=== PATIENT | female | born 1950 | race Caucasian/White ===

== ENCOUNTER → 2020-05-26 | Outpatient (CLI) | payer MEDICARE ==
--- NOTE | 2020-05-28 16:17 | BD ---
EXAMINATION TYPE: Axial Bone Density DATE OF EXAM: 05/26/2020 COMPARISON: NONE CLINICAL HISTORY: Height: Weight: FRAX RISK QUESTIONS: Alcohol (3 or more units per day): no Family History (Parent hip fracture): no Glucocorticoids (More than 3mos): no (Ex: prednisone, prednisolone, methylprednisolone, dexamethasone, and hydrocortisone). History of Fracture in Adulthood: yes Secondary Osteoporosis: 1. Type 1 Diabetes: no 2. Hyperthyroidism: no 3. Menopause before 45: no 4. Malnutrition: yes 5. Chronic liver disease: no Rheumatoid Arthritis: no Current Tobacco Use: yes RISK FACTORS HISTORY OF: History of Wrist Fracture: right wrist Surgery to Spine/Hip(right/left)/Wrist (right/left): no Family History of Osteoporosis: yes Active: no Diet low in dairy products/other sources of calcium: yes Postmenopausal woman: age 50 Poor Health: yes MEDICATIONS: Additional History: EXAM MEASUREMENTS: Bone mineral densitometry was performed using the [employer] System. Bone mineral density as measured about the Lumbar spine is: ----- L1-L4(G/cm2): 0.632 T Score Values are as follows: ----- L2: -5.4 ----- L3: -4.7 ----- L4: -3.4 ----- L1-L4: -4.6 Bone mineral density : baseline Bone mineral density about the R hip (g/cm2): 0.468 Bone mineral density about the L hip (g/cm2): 0.498 T Score values are as follows: -----R Neck: -4.1 -----L Neck: -3.9 -----R Total: -2.5 -----L Total: -4.4 Bone mineral density : baseline IMPRESSION:Osteoporosis (T Score less than -2.5). There is increased fracture risk and therapy is usually indicated based on age. Re-Screen 1-2 years. NOTE: T-SCORE=SD OF THE YOUNG ADULT MEAN.
--- NOTE | 2020-06-01 10:53 | MM ---
Reason for exam: screening (asymptomatic). History: Patient is postmenopausal. Physical Findings: A clinical breast exam by your physician is recommended on an annual basis and results should be correlated with mammographic findings. MG 3D Screening Mammo W/Cad Bilateral CC and MLO view(s) were taken. No prior studies available for comparison. The breast tissue is heterogeneously dense. This may lower the sensitivity of mammography. There is no discrete abnormality. Benign oil cyst calcification anteriorly on the right. ASSESSMENT: Benign, BI-RAD 2 RECOMMENDATION: Routine screening mammogram of both breasts in 1 year.
== END | disposition home or self-care (01) ==
LOC: RADMAMWWP 15:43
PROVIDERS: ATTEND Family Medicine
DX: Z12.31 Encounter for screening mammogram for malignant neoplasm of breast (principal); M81.0 Age-related osteoporosis without current pathological fracture; Z78.0 Asymptomatic menopausal state
CPT/HCPCS: 77063; 77067; 77080

== ENCOUNTER 2020-10-15 13:03 | Emergency (ER) | payer MEDICARE ==
[2020-10-15 13:15] VITALS: BP 160/72; PULSE 67; RESP 18; TEMP 97.9
--- NOTE | 2020-10-15 15:36 | ED ---
General Adult HPI - General Chief complaint: Extremity Injury, Lower Stated complaint: R Foot Swelling Time Seen by Provider: 10/15/20 15:10 Source: patient Mode of arrival: wheelchair Limitations: no limitations - History of Present Illness Initial comments: 70-year-old female with a past medical history of hypertension presents to the emergency room for a chief complaint of right foot pain. Patient patient reports that several years ago she cut her toenail to narrow and it grew back with fungus. She reports that the past 4 days she noticed the toe was hurting more in her foot and ankle started to swell. She went to urgent care and they were concerned for a blood clot. Patient denies any fevers. Denies streaking redness up the leg.Patient has no other complaints at this time including shortness of breath, chest pain, abdominal pain, nausea or vomiting, headache, or visual changes. - Related Data Home Medications Medication Instructions Recorded Confirmed ALPRAZolam [Xanax] 1 mg PO TID PRN 10/15/20 10/15/20 Citalopram Hydrobromide 20 mg PO DAILY 10/15/20 10/15/20 [Citalopram HBr] Cyanocobalamin (Vitamin B-12) 1,000 mcg PO DAILY 10/15/20 10/15/20 [Vitamin B-12] Losartan Potassium [Cozaar] 50 mg PO BID 10/15/20 10/15/20 Metoprolol Succinate (ER) [Toprol 100 mg PO BID 10/15/20 10/15/20 Xl] Vit C/E/Zn/Coppr/Lutein/Zeaxan 1 cap PO BID 10/15/20 10/15/20 [Preservision Areds 2 Softgel] amLODIPine [Norvasc] 5 mg PO DAILY 10/15/20 10/15/20 diphenhydrAMINE [Benadryl] 25 mg PO DAILY PRN 10/15/20 10/15/20 Previous Rx's Medication Instructions Recorded Cephalexin [Keflex] 500 mg PO Q6HR 10 Days #40 cap 10/15/20 Allergies Allergy/AdvReac Type Severity Reaction Status Date / Time No Known Allergies Allergy Verified 10/15/20 15:50 Review of Systems ROS Statement: Those systems with pertinent positive or pertinent negative responses have been documented in the HPI. ROS Other: All systems not noted in ROS Statement are negative. Past Medical History Past Medical History: Hypertension History of Any Multi-Drug Resistant Organisms: None Reported Additional Past Surgical History / Comment(s): vain stripping left leg, Past Psychological History: Anxiety, Depression Smoking Status: Current every day smoker Past Alcohol Use History: Heavy Past Drug Use History: None Reported General Exam Limitations: no limitations General appearance: alert Head exam: Present: atraumatic Eye exam: Present: normal appearance ENT exam: Present: normal exam, mucous membranes moist Neck exam: Present: normal inspection. Absent: tenderness, meningismus, lymphadenopathy Respiratory exam: Present: normal lung sounds bilaterally. Absent: respiratory distress, wheezes, rales, rhonchi, stridor Cardiovascular Exam: Present: regular rate, normal rhythm, normal heart sounds. Absent: systolic murmur, diastolic murmur, rubs, gallop, clicks Extremities exam: Present: full ROM (Full range motion of the right lower extremity), tenderness (No significant tenderness in the toe or right lower extremity), normal capillary refill (Capillary refill less than 2 seconds, DP pulse 2+.), other (Mild edema noted of the right foot and distal lower leg with minimal erythema. There is no paronychia noted. There is no streaking redness up the leg. No sores or wounds.). Absent: calf tenderness Course Vital Signs 10/15/20 13:07 Temperature 97.9 F Pulse Rate 67 Respiratory 18 Rate Blood Pressure 160/72 O2 Sat by Pulse 98 Oximetry Medical Decision Making - Medical Decision Making Vitals are stable. Patient well-appearing. Patient does have some edema and erythema noted to the right foot and distal lower leg. Concern for cellulitis. X-ray shows osteoarthritis. There is a mild bunion with overlying soft tissue swelling and subtle soft tissue calcification. Correlate to exclude the possibility of gout here. Clinically not consistent with gout. US neg fot DVT, We will treat patient for cellulitis. No history of diabetes, no fevers. We will try outpatient management with Keflex. Recommend she follow up with her doctor. If symptoms do not improve in the next 2 days she needs to return to the emergency room. I discussed this case with attending Dr. Yap who agrees with this assessment and treatment plan. Disposition Clinical Impression: Cellulitis Disposition: HOME SELF-CARE Condition: Good Instructions (If sedation given, give patient instructions): Cellulitis (ED) Additional Instructions: Please take antibiotic as directed. Please monitor for any worsening symptoms such as worsening swelling or redness to return if these occur. Follow-up with primary care in 1-2 days for a recheck. If symptoms are not starting to improve in 2 days return to the emergency room. Prescriptions: Cephalexin [Keflex] 500 mg PO Q6HR 10 Days #40 cap Is patient prescribed a controlled substance at d/c from ED?: No Referrals: Janel Bailey MD [Primary Care Provider] - 1-2 days Time of Disposition: 16:58
--- NOTE | 2020-10-15 15:59 | XR ---
EXAMINATION TYPE: XR foot complete RT DATE OF EXAM: 10/15/2020 COMPARISON: NONE HISTORY: 70-year-old female pain, redness, cellulitis of the great toe. TECHNIQUE: 3 views FINDINGS: There is soft tissue swelling noted at the great toe. Moderate degenerative change first and joint. M ild bunion formation. No acute fracture, subluxation, dislocation. Some soft tissue swelling overlyin g the medial aspect of the first MTP joint and some subtle soft tissue calcifications in this region. Possible type II accessory navicular. Tiny plantar heel spur. IMPRESSION: 1. Moderate first MTP joint OA. 2. Mild bunion. There is overlying soft tissue swelling and subtle soft tissue calcification. Correla te to exclude the possibility of gout here.
--- NOTE | 2020-10-15 16:25 | US ---
EXAMINATION TYPE: US venous doppler duplex LE RT DATE OF EXAM: 10/15/2020 4:18 PM COMPARISON: NONE CLINICAL HISTORY: 70 year-old female rule out blood clot, edema. SIDE PERFORMED: Right TECHNIQUE: The lower extremity deep venous system is examined utilizing real time linear array sonog simon with graded compression, doppler sonography and color-flow sonography. FINDINGS: VESSELS IMAGED: Common Femoral Vein Deep Femoral Vein Greater Saphenous Vein * Femoral Vein Popliteal Vein Small Saphenous Vein * Proximal Calf Veins (* superficial vessels) Right Leg: Negative for DVT IMPRESSION: No evidence for DVT within the right lower extremity imaged from the groin to the upper calf.
[2020-10-15] MEDS ORDERED: CEPHALEXIN 500MG STARTER PACK 4 CAP BTL PO STA (16:56)
== END 2020-10-15 17:09 | disposition home or self-care (01) ==
LOC: EC 13:03
DX: L03.115 Cellulitis of right lower limb (principal); F17.200 Nicotine dependence, unspecified, uncomplicated; F32.9 Major depressive disorder, single episode, unspecified; F41.9 Anxiety disorder, unspecified; I10 Essential (primary) hypertension; Z79.899 Other long term (current) drug therapy
CPT/HCPCS: 99284

== ENCOUNTER 2021-12-11 09:19 | Emergency (ER) | payer MEDICARE ==
[2021-12-11 09:24] VITALS: TEMP 97.9
--- NOTE | 2021-12-11 09:37 | ED ---
General Adult HPI - General Chief complaint: Extremity Problem,Nontraumatic Stated complaint: L side Pain/cant walk Time Seen by Provider: 12/11/21 09:24 Source: patient Mode of arrival: wheelchair Limitations: no limitations - History of Present Illness Initial comments: Dictation was produced using [employer] dictation software. please excuse any gra mmatical, word or spelling errors. Chief Complaint: 71-year-old female presents to the emergency department left Meri pain History of Present Illness: 31-year-old female she has past medical history of hypertension. Patient states that she has left knee pain, left calf pain and left medial thigh pain. Patient was on a recent trip to [place]. She returned few days ago. Patient states it hurts when she walks. States that most of her pain is in her left knee. She does however complain of Pain, left popliteal pain and left medial thigh pain. Patient does not have any history of PE or DVT. Patient is coming by her son who is concerned that patient might be having symptoms of deep venous thrombosis. Patient has a chest pain or shortness of breath. The ROS documented in this emergency department record has been reviewed and confirmed by me. Those systems with pertinent positive or negative responses have been documented in the HPI. All other systems are other negative and/or noncontributory. PHYSICAL EXAM: General Impression: Alert and oriented x3, not in acute distress HEENT: Normocephalic atraumatic, extra-ocular movements intact, pupils equal and reactive to light bilaterally, mucous membranes moist. Cardiovascular: Heart regular rate and rhythm Chest: Able to complete full sentences, no retractions, no tachypnea Abdomen: abdomen soft, non-tender, non-distended, no organomegaly Musculoskeletal: Pulses present and equal in all extremities, no peripheral edema Left lower extremity: Hypertrophic left knee joint, no swelling, she does have palpable calf pain and medial thigh pain Motor: no focal deficits noted Neurological: CN II-XII grossly intact, no focal motor or sensory deficits noted Skin: Intact with no visualized rashes Psych: Normal affect and mood ED course: 71-year-old female presents with left left lower extremity pain. Signs upon arrival are within acceptable limits. Patient's clinical presentation is likely secondary to musculoskeletal pain at the left knee joint however she does have some symptoms of DVT. She does not have any symptoms of PE. Knee x-ray and left lower extremity ultrasound ordered. X-ray of the knee shows no acute processes. Does appear to be degenerative changes however. Ultrasound of the left lower extremities does not show any DVT. Patient be discharged. - Related Data Home Medications Medication Instructions Recorded Confirmed ALPRAZolam [Xanax] 1 mg PO TID PRN 10/15/20 10/15/20 Citalopram Hydrobromide 20 mg PO DAILY 10/15/20 10/15/20 [Citalopram HBr] Cyanocobalamin (Vitamin B-12) 1,000 mcg PO DAILY 10/15/20 10/15/20 [Vitamin B-12] Losartan Potassium [Cozaar] 50 mg PO BID 10/15/20 10/15/20 Metoprolol Succinate (ER) [Toprol 100 mg PO BID 10/15/20 10/15/20 Xl] Vit C/E/Zn/Coppr/Lutein/Zeaxan 1 cap PO BID 10/15/20 10/15/20 [Preservision Areds 2 Softgel] amLODIPine [Norvasc] 5 mg PO DAILY 10/15/20 10/15/20 diphenhydrAMINE [Benadryl] 25 mg PO DAILY PRN 10/15/20 10/15/20 Previous Rx's Medication Instructions Recorded Cephalexin [Keflex] 500 mg PO Q6HR 10 Days #40 cap 10/15/20 Allergies Allergy/AdvReac Type Severity Reaction Status Date / Time No Known Allergies Allergy Verified 12/11/21 09:21 Review of Systems ROS Statement: Those systems with pertinent positive or pertinent negative responses have been documented in the HPI. ROS Other: All systems not noted in ROS Statement are negative. Past Medical History Past Medical History: Hypertension History of Any Multi-Drug Resistant Organisms: None Reported Additional Past Surgical History / Comment(s): vain stripping left leg, Past Psychological History: Anxiety, Depression Smoking Status: Current every day smoker Past Alcohol Use History: Heavy Past Drug Use History: None Reported General Exam Limitations: no limitations Course Vital Signs 12/11/21 09:21 Temperature 97.9 F Pulse Rate 65 Respiratory 16 Rate Blood Pressure 140/68 O2 Sat by Pulse 93 L Oximetry Disposition Clinical Impression: Knee pain Disposition: HOME SELF-CARE Condition: Good Instructions (If sedation given, give patient instructions): Knee Pain (ED) Is patient prescribed a controlled substance at d/c from ED?: No Referrals: Janel Bailey MD [Primary Care Provider] - 1-2 days Time of Disposition: 10:46
--- NOTE | 2021-12-11 10:04 | XR ---
Left knee HISTORY: Knee pain COMPARISON: None TECHNIQUE: 4 views left knee were obtained. There is no fracture or dislocation. There is a small left knee effusion. There is moderate osteoarthritic change of the patellofemoral compartment with moderate joint space n arrowing. There is chondrocalcinosis of the medial and lateral compartments of the knee with mild joint space n arrowing. There are no focal intraosseous abnormalities. IMPRESSION: 1. No fracture or dislocation. 2. Small joint effusion. 3. Moderate degenerative change of the patellofemoral compartment and chondrocalcinosis of the medial and lateral compartments.
--- NOTE | 2021-12-11 10:24 | US ---
EXAMINATION TYPE: US venous doppler duplex LE LT DATE OF EXAM: 12/11/2021 10:19 AM COMPARISON: NONE CLINICAL HISTORY: suspect DVT. Left leg pain x 4 days. SIDE PERFORMED: Left TECHNIQUE: The lower extremity deep venous system is examined utilizing real time linear array sonog simon with graded compression, doppler sonography and color-flow sonography. VESSELS IMAGED: Common Femoral Vein Deep Femoral Vein Greater Saphenous Vein * Femoral Vein Popliteal Vein Small Saphenous Vein * Proximal Calf Veins (* superficial vessels) Left Leg: Negative for DVT The deep venous system of the left lower extremity from the common femoral vein to the popliteal vein and proximal calf veins are patent and compressible with augmentable flow throughout. IMPRESSION: No evidence of left lower extremity DVT.
[2021-12-11] MEDS ORDERED: ACET/COD 300 MG/30 MG STARTER PACK 6 TAB BTL PO STA (10:47)
[2021-12-11 11:04] VITALS: BP 132/68; PULSE 87; RESP 18
== END 2021-12-11 11:03 | disposition home or self-care (01) ==
LOC: EC 09:19
DX: M25.562 Pain in left knee (principal); I10 Essential (primary) hypertension; F17.200 Nicotine dependence, unspecified, uncomplicated; Z79.899 Other long term (current) drug therapy
CPT/HCPCS: 99284

== ENCOUNTER 2022-04-05 10:36 | Inpatient (IN) | payer MEDICARE ==
[2022-04-05] MEDS ORDERED: SODIUM CHLORIDE 0.9% 1,000 ML IV STA ×2 (10:39→11:31)
[2022-04-05 10:44] LABS: Glucose,Whole Blood 223 mg/dL (70-110)
[2022-04-05 10:51] LABS: Basophils # (A) 0.1 k/uL (0-0.2); Basophils % (A) 0 %; Eosinophils % (A) 0 %; HCT 46.3 % (34.0-46.0); HGB 14.1 gm/dL (11.4-16.0); Hypochromasia Marked; Lymphocytes # (A) 1.8 k/uL (1.0-4.8); Lymphocytes % (A) 12 %; MCH 29.8 pg (25.0-35.0); MCHC 30.5 g/dL (31.0-37.0); MCV 97.5 fL (80.0-100.0); Mean Platelet Volume 7.5; Monocytes # (A) 0.4 k/uL (0-1.0); Monocytes % (A) 3 %; Neutrophils # (A) 12.7 k/uL (1.3-7.7); Neutrophils % (A) 84 %; Platelet Count 328 k/uL (150-450); RBC 4.75 m/uL (3.80-5.40); WBC 15.1 k/uL (3.8-10.6)
[2022-04-05 10:59] LABS: INR 1.2 (<1.2); Partial Thromboplastin Time 23.8 sec (22.0-30.0); Prothrombin Time 12.3 sec (9.0-12.0)
[2022-04-05 11:04] LABS: Lactic Acid, Venous 4.4 mmol/L (0.7-2.0)
[2022-04-05] MEDS ORDERED: RX INFO: IV CONTRAST WAS GIVEN 1 EACH MISC MISCELLANE PRN (11:11)
--- NOTE | 2022-04-05 11:12 | XR ---
EXAMINATION TYPE: XR chest 1V portable DATE OF EXAM: 04/05/2022 COMPARISON: NONE HISTORY: Pain TECHNIQUE: Single frontal view of the chest is obtained. FINDINGS: There is diffuse emphysematous changes with a right-sided pneumothorax measuring approxima tely 30-40%. Cannot exclude a degree of tension pneumothorax. Report called to ER clinician at 11:05 AM 04/05/2022. Atherosclerotic change aorta. Diffuse osteopenia and arthropathy of the shoulders. Blunted costophren ic angles likely secondary to hyperexpansion and COPD. IMPRESSION: 1. COPD with approximate 30-40% right-sided pneumothorax. Patient is slightly rotated although a comp onent of tension pneumothorax not excluded correlate clinically. 2. Rib deformities along the lateral right rib cage estimated at the right sixth, seventh and eighth ribs suspicious for fracture.
--- NOTE | 2022-04-05 11:15 | XR ---
EXAMINATION TYPE: XR pelvis AP view DATE OF EXAM: 04/05/2022 COMPARISON: NONE HISTORY: Pain The osseous structures are intact and the joint spaces are preserved. No acute fracture is seen. Vi sualized bowel gas pattern is nonspecific. Diffuse osteopenia with vascular calcifications. Hypertro phic change of the acetabulum can be associated with femoral acetabular impingement. Hypertrophic and degenerative changes lower lumbar spine. IMPRESSION: 1. No acute fracture.
[2022-04-05 11:20] LABS: Calcium 8.8 mg/dL (8.4-10.2); Total Bilirubin 0.6 mg/dL (0.2-1.3)
[2022-04-05 11:22] LABS: Magnesium 1.9 mg/dL (1.6-2.3); Potassium 4.1 mmol/L (3.5-5.1)
[2022-04-05 11:23] LABS: Albumin 3.8 g/dL (3.5-5.0)
[2022-04-05] MEDS ORDERED: LIDOCAINE 1% INJ 10MG/ML (20 ML MDV) SQ ONE (11:24)
[2022-04-05] MEDS ORDERED: KETAMINE 10 MG/ML 20 ML VIAL IV ONE (11:24)
[2022-04-05 11:28] LABS: Amorphous Sediment,Urine Occasional /hpf; Appearance,Urine Turbid (Clear); Bacteria,Urine Moderate /hpf; Bilirubin,Urine Negative (Negative); Blood,Urine Moderate (Negative); Color,Urine Yellow; Glucose,Urine (UA) Negative (Negative); Ketones,Urine Negative (Negative); Leukocyte Esterase,Urine Large (Negative); Mucus,Urine Occasional /hpf; Nitrite,Urine Negative (Negative); PH, Urine 5.5 (5.0-8.0); Protein,Urine 2+ (Negative); RBC,Urine 14 /hpf (0-5); Specific Gravity,Urine 1.019 (1.001-1.035); Squamous Epithelial Cell,Urine 11 /hpf (0-4); Urobilinogen,Urine <2.0 mg/dL (<2.0); WBC,Urine 56 /hpf (0-5)
[2022-04-05] MEDS ORDERED: VANCOMYCIN IV PER PHARMACY 1 EACH MISC MISCELLANE PRN (11:30)
[2022-04-05] MEDS ORDERED: SODIUM CHLORIDE 0.9% 500 ML 500 ML IV STA (11:31)
[2022-04-05] MEDS ORDERED: VANCOMYCIN 1,000 MG in SODIUM CHLORIDE 0.9% 250 ML IVPB STA (11:38)
[2022-04-05] MEDS ORDERED: CEFEPIME 2 GM in SODIUM CHLORIDE 0.9% 100 ML IVPB SCH (12:00)
--- NOTE | 2022-04-05 12:28 | XR ---
EXAMINATION TYPE: XR chest 1V portable DATE OF EXAM: 04/05/2022 9:07 AM COMPARISON: Chest radiographs from 04/05/2022 same day TECHNIQUE: XR chest 1V portable Frontal view of the chest. CLINICAL INDICATION:Female, 72 years old with history of thoravent placement; FINDINGS: Lungs/Pleura: There is no evidence of pleural effusion, focal consolidation, or pneumothorax. Prior pneumothorax has been reduced. There is persistent streaky airspace opacities throughout the lungs. I ncreased lucency in the lung apices. Pulmonary vascularity: Unremarkable. Heart/mediastinum: Cardiomediastinal silhouette is unremarkable. Atherosclerotic calcifications are seen in the aorta. Musculoskeletal: No acute osseous pathology. Unchanged right rib deformities Lines/Tubes: Right chest wall thoracotomy tube without evidence of pneumothorax. IMPRESSION: Interval placement of right thoracotomy tube, reduction of prior pneumothorax without evidence of per sistent pneumothorax. The remainder of exam is grossly unchanged from immediate prior.
--- NOTE | 2022-04-05 13:18 | CT ---
EXAMINATION TYPE: CT brain armando garcia DATE OF EXAM: 04/05/2022 COMPARISON: None HISTORY: FALL CT DLP: 1874.7 COMBINED mGycm, Automated exposure control for dose reduction was used. CONTRAST: Patient injected with 0 mL of Isovue 300. CT of the brain is performed utilizing 3 mm thick sections through the posterior fossa and 3 mm thick sections through the remaining calvarium. Study is performed within 24 hours of arrival to the hospital. No abnormal hyperdensity is present to suggest an acute intracranial hemorrhage. No mass lesion is evident. No acute infarcts are evident. Periventricular white matter hypodensity is present, likely on the ba sis of chronic white matter ischemic changes. Ventricles and sulci are appropriate for the patient age. Paranasal sinuses and mastoid air cells within the [id number] are clear. IMPRESSIONS: 1. Chronic appearing periventricular white matter ischemic changes. CT cervical spine. COMPARISON: None CT of the cervical spine is performed in the axial plane at 2 mm thick sections. Reconstructed image s in the coronal, and sagittal plane are reviewed on the computer. No acute fractures are evident. Cervical kyphosis is present. Very minimal grade 1 spondylolisthesis of C3 anteriorly on C4 may be pr esent Disc space narrowing is present C3-4, C4-5, C5-6, C6-7. Vertebral body heights are preserved. Small Schmorl's node may be at the inferior endplate of C6. No spinal canal stenosis is evident. Uncovertebral joint hypertrophy is present C4-5 with mild foraminal narrowing. Some endplate spurring his anterior thecal sac impression. No AP spinal canal stenosis present. Uncovertebral joint at C5-6 there is [id number] bilateral foraminal stenosis. Some mild foraminal narrowing at C6-7 may be present from uncovertebral hypertrophy. IMPRESSIONS: 1. Cervical kyphosis. 2. Very minimal C3 anteriorly on C4 spondylolisthesis is not excluded. 3. Uncovertebral joint hypertrophy with foraminal narrowing discussed above. 4. No acute osseous abnormality.
--- NOTE | 2022-04-05 13:29 | ED ---
General Adult HPI - General Chief complaint: Shortness of Breath Stated complaint: Fall Time Seen by Provider: 04/05/22 10:39 Source: EMS, RN notes reviewed, old records reviewed Mode of arrival: EMS - History of Present Illness Initial comments: Patient is a 72-year-old female who presents emergency Department after being found down at home. Patient was last seen Sunday morning by a friend. Patient has not been picking up her Meals on Wheels of the last few days. EMS was called for a wellness check. She was found down in her bathroom. Is uncertain how long she was therefore. Appear dehydrated was found hypoxic at the scene on room air. Improved on nonrebreather. Vital signs otherwise were within normal limits. Presents emergency department for further evaluation. Patient endorses right sided posterior rib pain. Otherwise denies chest pain, shortness of mignon ath, abdominal pain, nausea, vomiting. Patient states she is uncertain how she ended up on the ground. She is confused regarding recent incidents. His no other acute complaints at this time. Does not believe she is on blood thinners. Presents for further evaluation at this time. - Related Data Home Medications Medication Instructions Recorded Confirmed ALPRAZolam [Xanax] 1 mg PO TID PRN 10/15/20 04/05/22 Citalopram Hydrobromide 20 mg PO DAILY 10/15/20 04/05/22 [Citalopram HBr] Cyanocobalamin (Vitamin B-12) 1,000 mcg PO DAILY 10/15/20 04/05/22 [Vitamin B-12] Losartan Potassium [Cozaar] 50 mg PO BID 10/15/20 04/05/22 Metoprolol Succinate (ER) [Toprol 100 mg PO BID 10/15/20 04/05/22 Xl] Vit C/E/Zn/Coppr/Lutein/Zeaxan 1 cap PO BID 10/15/20 04/05/22 [Preservision Areds 2 Softgel] diphenhydrAMINE [Benadryl] 25 mg PO QID PRN 10/15/20 04/05/22 Allergies Allergy/AdvReac Type Severity Reaction Status Date / Time No Known Allergies Allergy Verified 04/05/22 14:02 Review of Systems ROS Statement: Those systems with pertinent positive or pertinent negative responses have been documented in the HPI. Review of Systems: CONST: Denies fever EYES: Denies blurry vision ENT: Denies nasal congestion C/V: Denies Chest pain RESP: Denies shortness of breath GI: Denies abdominal pain : Denies dysuria SKIN: Denies rash. MSK: Denies joint pain. NEURO: Denies headache ROS Other: All systems not noted in ROS Statement are negative. Past Medical History Past Medical History: Diabetes Mellitus, Hypertension History of Any Multi-Drug Resistant Organisms: None Reported Additional Past Surgical History / Comment(s): vain stripping left leg, Past Psychological History: Anxiety, Depression Smoking Status: Current every day smoker Past Alcohol Use History: Heavy Past Drug Use History: None Reported General Exam - General Exam Comments Initial Comments: General: Patient is appearing malnourished. Extremities dry mucous membranes. HEAD: Normal with no signs of head trauma. Negative Mallory sign. Negative raccoon eyes. EYES: PERRLA, EOMI, conjunctiva normal, no discharge. Pupils are 3 mm and equal bilaterally. ENT: Hearing grossly intact, normal oropharynx. Dry mucous membranes. RESPIRATORY: Mostly clear breath sounds bilaterally. Hypoxic on room air. C/V: Patient is tachycardic with a regular rhythm. S1 and S2 auscultated. No peripheral edema. Peripheral pulses are 2+ and intact throughout. ABD: Abd is soft, nontender, nondistended EXT: Normal range of motion, no obvious deformity pelvis is stable. No midline cervical, thoracic, lumbar spine tenderness to palpation. Patient does have right mid to inferior posterior rib tenderness. No skin changes. No flail chest. SKIN: No rashes or lesions observed on exposed skin. NEURO: Alert and oriented 4. No focal deficits. NIH of 0. GCS is 15. Course Vital Signs 04/05/22 04/05/22 04/05/22 10:37 10:40 10:55 Temperature 97.8 F Pulse Rate 116 H 105 H Respiratory 20 20 Rate Blood Pressure 141/83 152/77 O2 Sat by Pulse 80 L 93 L Oximetry Fraction of Inspired Oxygen (FIO2) 04/05/22 04/05/22 04/05/22 11:08 11:47 11:50 Temperature Pulse Rate 98 96 Respiratory 18 18 Rate Blood Pressure 160/93 139/79 O2 Sat by Pulse 99 100 Oximetry Fraction of 100 Inspired Oxygen (FIO2) 04/05/22 04/05/22 04/05/22 11:55 12:00 12:05 Temperature Pulse Rate 85 84 84 Respiratory 16 18 16 Rate Blood Pressure 93/45 90/59 97/52 O2 Sat by Pulse 99 98 98 Oximetry Fraction of Inspired Oxygen (FIO2) 04/05/22 04/05/22 04/05/22 12:10 12:15 13:00 Temperature Pulse Rate 83 81 67 Respiratory 16 16 16 Rate Blood Pressure 90/59 109/82 117/65 O2 Sat by Pulse 98 98 100 Oximetry Fraction of Inspired Oxygen (FIO2) Procedures - [facility] Protocol (Time Out) Procedure Performed:: Conscious Sedation Performing Provider: Genaro Catherine Nurse: Nighat Carey Respiratory Therapist: Chetna Yost Patient Identification (2 identifiers required): Chart, Verbal, Arm Band, Name Patient/Legal Rn Documentation Specialist has Confirmed: Identity Site: Right Chest Site Marked: Yes Site Verified With Patient/Guardian: Yes Final Confirmation: Procedure, Site - Chest Tube Insertion Consent Obtained: verbal consent Side of Procedure: right Indication: Pneumothorax Placed on monitor/pulse oximetry: Yes Site Prep: Chloroprep, Sterile Drape Applied Local Anesthesia: Lidocaine 1% Amount (mLs): 5 Insertion Site: Other (midclavicular) Scalpel: #10 Open into Pleural Space Using: Other (Thoravent with trochar) Returns: Air Sutured in Place: No (Attached pre-loaded dressing and taped in place.) Attached to Suction: Yes Type of Suction: Pleuravac Repeat X-ray Results: Lung Inflated Patient Tolerated Procedure: well - Procedural Sedation Procedural Sedation Start Time: 11:50 Procedural Sedation Stop Time: 12:00 Indications: other (Chest tube insertion) ASA Class: I Mallampati Airway Score: 2 Time of Last PO Intake: 00:00 (unknown, likely yesterday or 2 days ago.) Preparation: diagnostic cardiac sonographer applied, pulse oximeter, capnometry used, supplemental O2 applied, suction/airway equipment at bedside, IV secured Ketamine: IV Ketamine Dose: 60 Complications: none Patient Tolerated Procedure: well Medical Decision Making - Medical Decision Making Based on the patient's presentation and physical exam, appear she is an elderly female likely had a fall from standing. Possible concern for rib fractures. She is somewhat a poor historian regarding the fall. They have been present on the ground for multiple days. Currently appears dehydrated. Patient is having difficulty in breathing. We will begin transition of BiPAP, however if patient has pneumothorax, we will stop this. Bedside chest x-ray and pelvis x-ray will be obtained. She is saturating in the mid 90% on nonrebreather. Remainder the vital signs are within normal limits. We'll obtain broad workup including infectious labs. Recommend CT head as well. SHe appears dehydrated and will be administered 1 L fluid bolus. EKG shows no signs of acute ischemia. Bedside chest x-ray reveals a pneumothorax. We'll cancel BiPAP at this time. I spoke to radiologist, and appears to be 30%. I contacted CT surgery, Lalit Don was in agreement with the plan for a chest tube. Patient will have a sore vent placed as there is no evidence of hemothorax, just an isolated pneumothorax on the right. Patient's [id number] presents at bedside at this time. I discussed with her and as well as the patient. They were consented to treatment. Procedural sedation was performed with ketamine. There was a delay and placing a chest tube, as we were waiting for all necessary staff to perform procedural sedation to be available. This also delayed CT imaging, as we did not want to send the patient away from the resuscitation bay, in the event that the pneumothorax worsens. Chest x-ray and clinically did not reveal an obvious tension pneumothorax, however radiologist was concerned that may be early signs of this. For about was placed successfully. Post chest tube placement chest x-ray reveals reinflation of the lung. Was connected to continuous suctioning via atrium. See additional procedure notes for further information. Dr. Her was consulted of CT surgery. I did speak with radiology as well regarding possible rib fractures but no definitive definitive fractures seen on chest x-ray. Recommended CT imaging. At this time, laboratory studies were returning. Patient is a leukocytosis of 15. Patient has a lactic acidosis of 4.4 which is likely multifactorial consisting of dehydration as well as infection. Troponin is elevated to 0.056. This is likely secondary to secondary causes, like the fall, pneumothorax, concern for infection. Urinalysis reveals findings concerning for acute infection. Blood cultures were obtained and sent. Covid is negative. Due to the lactic acidosis, tachycardia, as well as urinalysis findings, there is concern for possible sepsis. She met criteria at 1135. Vancomycin, cefepime broad-spectrum antibiotics were ordered. We will complete to 30 mL per KG consisting of an additional 500 mL fluid bolus as well as start the patient on maintenance fluids. Vital signs remain within normal limits at this time. We'll continue to monitor. CT imaging was eventually obtained, and revealed no acute intracranial process. No acute cervical spine injury. Pelvic x-ray show no acute fracture or injury.Patient's CT chest, abdomen, pelvis revealed minimal residual pneumothorax the right chest. No other traumatic injuries present. No rib fractures present. CT C-spine shows no acute fractures or subluxations. I did the patient. She is feeling somewhat improved. We will begin to wean her off of oxygen. We'll monitor her closely. Chest remains connected to suction. I spoke with the patient's [id number] over the phone and updated her as well. As the patient is no obvious traumatic injury, but she does have a history of what appears to be emphysema, likely had a spontaneous pneumothorax in addition to the fall, dehydration, and being found down. She'll be continued to be treated for sepsis due to the lactic acidosis, initial tachycardia, as well as initial hypoxia. We'll keep her on broad-spectrum antibiotic at this time. Maintenance fluids will be continued. Pain medications are ordered. Patient was in agreement this plan. Vital signs remain within normal limits. We'll continue to wean her off oxygen. There was a delay in obtaining CT imaging reads. This delayed her admission process. I spoke with CT surgery over the phone who agreed with the plan. I spoke with the admitting team, MELLO Castelan who accepted the patient. They requested a cardiology consult. CT surgery will manage the chest tube. Patient admitted to step down. - Lab Data Result diagrams: 04/05/22 10:47 04/05/22 10:57 Lab Results 04/05/22 04/05/22 04/05/22 Range/Units 10:43 10:47 10:47 WBC 15.1 H (3.8-10.6) k/uL RBC 4.75 (3.80-5.40) m/uL Hgb 14.1 (11.4-16.0) gm/dL Hct 46.3 H (34.0-46.0) % MCV 97.5 (80.0-100.0) fL MCH 29.8 (25.0-35.0) pg MCHC 30.5 L (31.0-37.0) g/dL RDW 13.0 (11.5-15.5) % Plt Count 328 (150-450) k/uL MPV 7.5 Neutrophils % 84 % Lymphocytes % 12 % Monocytes % 3 % Eosinophils % 0 % Basophils % 0 % Neutrophils # 12.7 H (1.3-7.7) k/uL Lymphocytes # 1.8 (1.0-4.8) k/uL Monocytes # 0.4 (0-1.0) k/uL Eosinophils # 0.0 (0-0.7) k/uL Basophils # 0.1 (0-0.2) k/uL Hypochromasia Marked PT 12.3 H (9.0-12.0) sec INR 1.2 H (<1.2) APTT 23.8 (22.0-30.0) sec VBG pH (7.31-7.41) VBG pCO2 (37-51) mmHg VBG HCO3 (24-28) mmol/L Sodium (137-145) mmol/L Potassium (3.5-5.1) mmol/L Chloride (98-107) mmol/L Carbon Dioxide (22-30) mmol/L Anion Gap mmol/L BUN (7-17) mg/dL Creatinine (0.52-1.04) mg/dL Est GFR (CKD-EPI)AfAm (>60 ml/min/1.73 sqM) Est GFR (CKD-EPI)NonAf (>60 ml/min/1.73 sqM) Glucose (74-99) mg/dL POC Glucose (mg/dL) 223 H (70-110) mg/dL POC Glu Curator Of Manuscripts ID Kasandra Beauchamp Lactic Ac Sepsis Rflx Plasma Lactic Acid [place] (0.7-2.0) mmol/L Calcium (8.4-10.2) mg/dL Magnesium (1.6-2.3) mg/dL Total Bilirubin (0.2-1.3) mg/dL AST (14-36) U/L ALT (4-34) U/L Alkaline Phosphatase (38-126) U/L Ammonia (<30) umol/L Creatine Kinase (30-135) U/L Troponin I (0.000-0.034) ng/mL NT-Pro-B Natriuret Pep pg/mL Total Protein (6.3-8.2) g/dL Albumin (3.5-5.0) g/dL Urine Color Urine Appearance (Clear) Urine pH (5.0-8.0) Ur Specific [place] (1.001-1.035) Urine Protein (Negative) Urine Glucose (UA) (Negative) Urine Ketones (Negative) Urine Blood (Negative) Urine Nitrite (Negative) Urine Bilirubin (Negative) Urine Urobilinogen (<2.0) mg/dL Ur Leukocyte Esterase (Negative) Urine RBC (0-5) /hpf Urine WBC (0-5) /hpf Ur Squamous Epith Cells (0-4) /hpf Amorphous Sediment (None) /hpf Urine Bacteria (None) /hpf Urine Mucus (None) /hpf Coronavirus (PCR) (Not Detectd) 04/05/22 04/05/22 04/05/22 Range/Units 10:47 10:47 10:57 WBC (3.8-10.6) k/uL RBC (3.80-5.40) m/uL Hgb (11.4-16.0) gm/dL Hct (34.0-46.0) % MCV (80.0-100.0) fL MCH (25.0-35.0) pg MCHC (31.0-37.0) g/dL RDW (11.5-15.5) % Plt Count (150-450) k/uL MPV Neutrophils % % Lymphocytes % % Monocytes % % Eosinophils % % Basophils % % Neutrophils # (1.3-7.7) k/uL Lymphocytes # (1.0-4.8) k/uL Monocytes # (0-1.0) k/uL Eosinophils # (0-0.7) k/uL Basophils # (0-0.2) k/uL Hypochromasia PT (9.0-12.0) sec INR (<1.2) APTT (22.0-30.0) sec VBG pH (7.31-7.41) VBG pCO2 (37-51) mmHg VBG HCO3 (24-28) mmol/L Sodium 141 (137-145) mmol/L Potassium 4.1 (3.5-5.1) mmol/L Chloride 101 (98-107) mmol/L Carbon Dioxide 28 (22-30) mmol/L Anion Gap 12 mmol/L BUN 27 H (7-17) mg/dL Creatinine 0.77 (0.52-1.04) mg/dL Est GFR (CKD-EPI)AfAm 88 (>60 ml/min/1.73 sqM) Est GFR (CKD-EPI)NonAf 76 (>60 ml/min/1.73 sqM) Glucose 206 H (74-99) mg/dL POC Glucose (mg/dL) (70-110) mg/dL POC Glu Curator Of Manuscripts ID Lactic Ac Sepsis Rflx Plasma Lactic Acid [place] 4.4 H* (0.7-2.0) mmol/L Calcium 8.8 (8.4-10.2) mg/dL Magnesium 1.9 (1.6-2.3) mg/dL Total Bilirubin 0.6 (0.2-1.3) mg/dL AST 28 (14-36) U/L ALT 15 (4-34) U/L Alkaline Phosphatase 97 (38-126) U/L Ammonia 18 (<30) umol/L Creatine Kinase 35 (30-135) U/L Troponin I (0.000-0.034) ng/mL NT-Pro-B Natriuret Pep 3150 pg/mL Total Protein 7.0 (6.3-8.2) g/dL Albumin 3.8 (3.5-5.0) g/dL Urine Color Urine Appearance (Clear) Urine pH (5.0-8.0) Ur Specific [place] (1.001-1.035) Urine Protein (Negative) Urine Glucose (UA) (Negative) Urine Ketones (Negative) Urine Blood (Negative) Urine Nitrite (Negative) Urine Bilirubin (Negative) Urine Urobilinogen (<2.0) mg/dL Ur Leukocyte Esterase (Negative) Urine RBC (0-5) /hpf Urine WBC (0-5) /hpf Ur Squamous Epith Cells (0-4) /hpf Amorphous Sediment (None) /hpf Urine Bacteria (None) /hpf Urine Mucus (None) /hpf Coronavirus (PCR) (Not Detectd) 04/05/22 04/05/22 04/05/22 Range/Units 10:57 11:00 11:04 WBC (3.8-10.6) k/uL RBC (3.80-5.40) m/uL Hgb (11.4-16.0) gm/dL Hct (34.0-46.0) % MCV (80.0-100.0) fL MCH (25.0-35.0) pg MCHC (31.0-37.0) g/dL RDW (11.5-15.5) % Plt Count (150-450) k/uL MPV Neutrophils % % Lymphocytes % % Monocytes % % Eosinophils % % Basophils % % Neutrophils # (1.3-7.7) k/uL Lymphocytes # (1.0-4.8) k/uL Monocytes # (0-1.0) k/uL Eosinophils # (0-0.7) k/uL Basophils # (0-0.2) k/uL Hypochromasia PT (9.0-12.0) sec INR (<1.2) APTT (22.0-30.0) sec VBG pH (7.31-7.41) VBG pCO2 (37-51) mmHg VBG HCO3 (24-28) mmol/L Sodium (137-145) mmol/L Potassium (3.5-5.1) mmol/L Chloride (98-107) mmol/L Carbon Dioxide (22-30) mmol/L Anion Gap mmol/L BUN (7-17) mg/dL Creatinine (0.52-1.04) mg/dL Est GFR (CKD-EPI)AfAm (>60 ml/min/1.73 sqM) Est GFR (CKD-EPI)NonAf (>60 ml/min/1.73 sqM) Glucose (74-99) mg/dL POC Glucose (mg/dL) (70-110) mg/dL POC Glu Curator Of Manuscripts ID Lactic Ac Sepsis Rflx Y Plasma Lactic Acid [place] (0.7-2.0) mmol/L Calcium (8.4-10.2) mg/dL Magnesium (1.6-2.3) mg/dL Total Bilirubin (0.2-1.3) mg/dL AST (14-36) U/L ALT (4-34) U/L Alkaline Phosphatase (38-126) U/L Ammonia (<30) umol/L Creatine Kinase (30-135) U/L Troponin I 0.056 H* (0.000-0.034) ng/mL NT-Pro-B Natriuret Pep pg/mL Total Protein (6.3-8.2) g/dL Albumin (3.5-5.0) g/dL Urine Color Yellow Urine Appearance Turbid H (Clear) Urine pH 5.5 (5.0-8.0) Ur Specific [place] 1.019 (1.001-1.035) Urine Protein 2+ H (Negative) Urine Glucose (UA) Negative (Negative) Urine Ketones Negative (Negative) Urine Blood Moderate H (Negative) Urine Nitrite Negative (Negative) Urine Bilirubin Negative (Negative) Urine Urobilinogen <2.0 (<2.0) mg/dL Ur Leukocyte Esterase Large H (Negative) Urine RBC 14 H (0-5) /hpf Urine WBC 56 H (0-5) /hpf Ur Squamous Epith Cells 11 H (0-4) /hpf Amorphous Sediment Occasional H (None) /hpf Urine Bacteria Moderate H (None) /hpf Urine Mucus Occasional H (None) /hpf Coronavirus (PCR) (Not Detectd) 04/05/22 04/05/22 Range/Units 11:59 14:06 WBC (3.8-10.6) k/uL RBC (3.80-5.40) m/uL Hgb (11.4-16.0) gm/dL Hct (34.0-46.0) % MCV (80.0-100.0) fL MCH (25.0-35.0) pg MCHC (31.0-37.0) g/dL RDW (11.5-15.5) % Plt Count (150-450) k/uL MPV Neutrophils % % Lymphocytes % % Monocytes % % Eosinophils % % Basophils % % Neutrophils # (1.3-7.7) k/uL Lymphocytes # (1.0-4.8) k/uL Monocytes # (0-1.0) k/uL Eosinophils # (0-0.7) k/uL Basophils # (0-0.2) k/uL Hypochromasia PT (9.0-12.0) sec INR (<1.2) APTT (22.0-30.0) sec VBG pH 7.15 L* (7.31-7.41) VBG pCO2 58 H (37-51) mmHg VBG HCO3 20 L (24-28) mmol/L Sodium (137-145) mmol/L Potassium (3.5-5.1) mmol/L Chloride (98-107) mmol/L Carbon Dioxide (22-30) mmol/L Anion Gap mmol/L BUN (7-17) mg/dL Creatinine (0.52-1.04) mg/dL Est GFR (CKD-EPI)AfAm (>60 ml/min/1.73 sqM) Est GFR (CKD-EPI)NonAf (>60 ml/min/1.73 sqM) Glucose (74-99) mg/dL POC Glucose (mg/dL) (70-110) mg/dL POC Glu Curator Of Manuscripts ID Lactic Ac Sepsis Rflx Plasma Lactic Acid [place] (0.7-2.0) mmol/L Calcium (8.4-10.2) mg/dL Magnesium (1.6-2.3) mg/dL Total Bilirubin (0.2-1.3) mg/dL AST (14-36) U/L ALT (4-34) U/L Alkaline Phosphatase (38-126) U/L Ammonia (<30) umol/L Creatine Kinase (30-135) U/L Troponin I (0.000-0.034) ng/mL NT-Pro-B Natriuret Pep pg/mL Total Protein (6.3-8.2) g/dL Albumin (3.5-5.0) g/dL Urine Color Urine Appearance (Clear) Urine pH (5.0-8.0) Ur Specific [place] (1.001-1.035) Urine Protein (Negative) Urine Glucose (UA) (Negative) Urine Ketones (Negative) Urine Blood (Negative) Urine Nitrite (Negative) Urine Bilirubin (Negative) Urine Urobilinogen (<2.0) mg/dL Ur Leukocyte Esterase (Negative) Urine RBC (0-5) /hpf Urine WBC (0-5) /hpf Ur Squamous Epith Cells (0-4) /hpf Amorphous Sediment (None) /hpf Urine Bacteria (None) /hpf Urine Mucus (None) /hpf Coronavirus (PCR) Not Detected (Not Detectd) - EKG Data -: EKG Interpreted by Me EKG Comments: 12-lead Electrocardiogram Interpretation Note EKG was reviewed and interpreted by myself. 12-lead ECG performed at 1041 is interpreted by me as revealing sinus tachycardia at a rate of 111 beats per minute. [place] is normal. MD interval is 140 ms. QRS duration is 90 ms. QTC is 393 ms.. There were no ST or T wave abnormalities to suggest myocardial ischemia or injury. R wave progression across the precordium was satisfactory. By my interpretation this EKG is non-diagnostic for acute ischemia. No prior EKG for comparison. Critical Care Time Critical Care Time: Yes Total Critical Care Time: 35 Critical Care Time: Upon my evaluation, this patient had a high probability of imminent or life- threatening deterioration due to spontaneous pneumothorax, sepsis, which required my direct attention, intervention, and personal management. I have personally provided 35 minutes of critical care time exclusive of time spent on separately billable procedures. Time includes review of laboratory data, radiology results, discussion with consultants, and monitoring for potential decompensation. Interventions were performed as documented in my note. Disposition Clinical Impression: Spontaneous pneumothorax, Sepsis, UTI (urinary tract infection), Dehydration, Lactic acidosis Disposition: ADMITTED IP TO THIS HOSP Condition: Serious Time of Disposition: 14:00
--- NOTE | 2022-04-05 13:37 | CT ---
EXAMINATION TYPE: CT ChestAbdPelvis w con DATE OF EXAM: 04/05/2022 INDICATION: FALL COMPARISON: None CT DLP: 1874.7 COMBINED mGycm CONTRAST: Performed without Oral Contrast and with IV Contrast, patient injected with 100ML mL of Isovue 300. TECHNIQUE: Axial images at 5 mm thick sections. Reconstructed images in the coronal plane. Delayed images through the kidneys. FINDINGS: CT CHEST: Left lobe thyroid is somewhat prominent. This is heterogenous with some hypodense areas. Thyroid coul d be further evaluated with ultrasound. Emphysematous changes at the bilateral lung apices. There is some thickening along the posterior righ t lung apex. There is a catheter present on the right with the tip directed towards the apex. Is a sm all sliver of pneumothorax is evident along lateral right upper lung field. There is a posterior consolidation within the left lung base. This measures 4.8 x 3.9 cm along the le ft diaphragm. Neoplasm should be considered. Bilateral apical bulla are noted. No enlarged mediastinal or hilar adenopathy is evident. There may be some calcified subcarinal and ri ght hilar nodes. The ascending aorta diameter at the level of the main pulmonary artery is 3.9 cm. The main pulmonary artery diameter at the bifurcation is 3.[address] ABDOMEN: Liver: Normal Spleen: Normal Pancreas: Normal Adrenal glands: The adrenal glands are normal. Gallbladder: Normal Kidneys: No masses are evident. No hydronephrosis is present. Multiple scattered cysts are present within the bilateral renal cortex. On the right there is an anterior mid 1.4 cm cyst and on the poste rior lateral mid left kidney is a 1.7 cm cyst. Additional smaller cortical renal cysts present Delay ed images were obtained through the kidneys, which remain unremarkable. Aorta: Vascular calcification is within the aorta. Inferior vena cava: Normal. CT PELVIS: Loops of bowel within the abdomen and pelvis are normal. Few diverticula are likely present. This study is without oral contrast limiting bowel evaluation. No free air is evident. Appendix: Not identified. No dilated tubular structure or inflammatory change is evident. Urinary bladder: Normal. Genitourinary structures: Uterus appears normal. Adnexa are unremarkable. Osseous structures: No suspicious lytic or sclerotic lesions. IMPRESSIONS: 1. Minimal residual pneumothorax right chest treated with catheter 2. No acute posttraumatic changes otherwise evident. 3. Left diaphragm irregular masslike area. Additional workup for neoplasm is recommended. 4. COPD. 5. Bilateral renal cortical cysts. 6. Mild diverticulosis without acute diverticulitis. #7 irregular appearance to the thyroid. This cou ld be further evaluated with ultrasound
--- NOTE | 2022-04-05 13:40 | CT ---
EXAMINATION TYPE: CT thor lumbar spine w con DATE OF EXAM: 04/05/2022 COMPARISON: None HISTORY: FALL CT DLP: 1874.7 COMBINED mGycm Automated exposure control for dose reduction was used. Contrast: None Technique: Thoracolumbar spine is evaluated utilizing 3 mm thick sections in the axial plane from the lower cervical region through the upper sacrum. Reconstructed images in coronal and sagittal plane a re reviewed on the computer FINDINGS: Vertebral body heights are preserved. Disc heights appear preserved. Alignment is normal. No focal di sc herniation or significant disc bulge is evident. No spinal canal stenosis is evident. IMPRESSION: 1. NO ACUTE POSTTRAUMATIC CHANGES THORACIC OR LUMBAR SPINE.
[2022-04-05] MEDS ORDERED: MORPHINE SULFATE 4 MG/ML SYRINGE IV PRN (14:22)
[2022-04-05] MEDS ORDERED: KETOROLAC 15 MG/ML 1 ML VIAL IVP PRN (14:22)
[2022-04-05] MEDS ORDERED: NALOXONE 0.4 MG/ML 1 ML VIAL IV PRN (14:22)
[2022-04-05 14:25] LABS: VBG PH 7.15 (7.31-7.41)
[2022-04-05 15:02] LABS: ABG Base Excess 5.3 mmol/L; ABG HCO3 32 mmol/L (21-25); ABG Oxygen Saturation 87.1 % (94-97); ABG PH 7.26 (7.35-7.45); ABG TCO2 35 mmol/L (19-24); Allen Test Performed? Yes
[2022-04-05 15:06] LABS: ABG PCO2 72 mmHg (35-45); ABG PO2 58 mmHg (83-108)
[2022-04-05] MEDS: HEPARIN SODIUM,PORCINE/PF 5,000 UNIT/0.5 ML SYRINGE SQ SCH (16:00)
--- NOTE | 2022-04-05 16:15 | ED ---
Medical Decision Making - Medical Decision Making Patient daughter in law, Livia, called at 1430 at [phone] results. Patient admitted to Step down. - Lab Data Result diagrams: 04/05/22 10:47 04/05/22 10:57 Lab Results 04/05/22 04/05/22 04/05/22 Range/Units 10:43 10:47 10:47 WBC 15.1 H (3.8-10.6) k/uL RBC 4.75 (3.80-5.40) m/uL Hgb 14.1 (11.4-16.0) gm/dL Hct 46.3 H (34.0-46.0) % MCV 97.5 (80.0-100.0) fL MCH 29.8 (25.0-35.0) pg MCHC 30.5 L (31.0-37.0) g/dL RDW 13.0 (11.5-15.5) % Plt Count 328 (150-450) k/uL MPV 7.5 Neutrophils % 84 % Lymphocytes % 12 % Monocytes % 3 % Eosinophils % 0 % Basophils % 0 % Neutrophils # 12.7 H (1.3-7.7) k/uL Lymphocytes # 1.8 (1.0-4.8) k/uL Monocytes # 0.4 (0-1.0) k/uL Eosinophils # 0.0 (0-0.7) k/uL Basophils # 0.1 (0-0.2) k/uL Hypochromasia Marked PT 12.3 H (9.0-12.0) sec INR 1.2 H (<1.2) APTT 23.8 (22.0-30.0) sec VBG pH (7.31-7.41) VBG pCO2 (37-51) mmHg VBG HCO3 (24-28) mmol/L Sodium (137-145) mmol/L Potassium (3.5-5.1) mmol/L Chloride (98-107) mmol/L Carbon Dioxide (22-30) mmol/L Anion Gap mmol/L BUN (7-17) mg/dL Creatinine (0.52-1.04) mg/dL Est GFR (CKD-EPI)AfAm (>60 ml/min/1.73 sqM) Est GFR (CKD-EPI)NonAf (>60 ml/min/1.73 sqM) Glucose (74-99) mg/dL POC Glucose (mg/dL) 223 H (70-110) mg/dL POC Glu Personal Security Specialist ID Kasandra Beauchamp Lactic Ac Sepsis Rflx Plasma Lactic Acid [place] (0.7-2.0) mmol/L Calcium (8.4-10.2) mg/dL Magnesium (1.6-2.3) mg/dL Total Bilirubin (0.2-1.3) mg/dL AST (14-36) U/L ALT (4-34) U/L Alkaline Phosphatase (38-126) U/L Ammonia (<30) umol/L Creatine Kinase (30-135) U/L Troponin I (0.000-0.034) ng/mL NT-Pro-B Natriuret Pep pg/mL Total Protein (6.3-8.2) g/dL Albumin (3.5-5.0) g/dL Urine Color Urine Appearance (Clear) Urine pH (5.0-8.0) Ur Specific [place] (1.001-1.035) Urine Protein (Negative) Urine Glucose (UA) (Negative) Urine Ketones (Negative) Urine Blood (Negative) Urine Nitrite (Negative) Urine Bilirubin (Negative) Urine Urobilinogen (<2.0) mg/dL Ur Leukocyte Esterase (Negative) Urine RBC (0-5) /hpf Urine WBC (0-5) /hpf Ur Squamous Epith Cells (0-4) /hpf Amorphous Sediment (None) /hpf Urine Bacteria (None) /hpf Urine Mucus (None) /hpf Coronavirus (PCR) (Not Detectd) 04/05/22 04/05/22 04/05/22 Range/Units 10:47 10:47 10:57 WBC (3.8-10.6) k/uL RBC (3.80-5.40) m/uL Hgb (11.4-16.0) gm/dL Hct (34.0-46.0) % MCV (80.0-100.0) fL MCH (25.0-35.0) pg MCHC (31.0-37.0) g/dL RDW (11.5-15.5) % Plt Count (150-450) k/uL MPV Neutrophils % % Lymphocytes % % Monocytes % % Eosinophils % % Basophils % % Neutrophils # (1.3-7.7) k/uL Lymphocytes # (1.0-4.8) k/uL Monocytes # (0-1.0) k/uL Eosinophils # (0-0.7) k/uL Basophils # (0-0.2) k/uL Hypochromasia PT (9.0-12.0) sec INR (<1.2) APTT (22.0-30.0) sec VBG pH (7.31-7.41) VBG pCO2 (37-51) mmHg VBG HCO3 (24-28) mmol/L Sodium 141 (137-145) mmol/L Potassium 4.1 (3.5-5.1) mmol/L Chloride 101 (98-107) mmol/L Carbon Dioxide 28 (22-30) mmol/L Anion Gap 12 mmol/L BUN 27 H (7-17) mg/dL Creatinine 0.77 (0.52-1.04) mg/dL Est GFR (CKD-EPI)AfAm 88 (>60 ml/min/1.73 sqM) Est GFR (CKD-EPI)NonAf 76 (>60 ml/min/1.73 sqM) Glucose 206 H (74-99) mg/dL POC Glucose (mg/dL) (70-110) mg/dL POC Glu Personal Security Specialist ID Lactic Ac Sepsis Rflx Plasma Lactic Acid [place] 4.4 H* (0.7-2.0) mmol/L Calcium 8.8 (8.4-10.2) mg/dL Magnesium 1.9 (1.6-2.3) mg/dL Total Bilirubin 0.6 (0.2-1.3) mg/dL AST 28 (14-36) U/L ALT 15 (4-34) U/L Alkaline Phosphatase 97 (38-126) U/L Ammonia 18 (<30) umol/L Creatine Kinase 35 (30-135) U/L Troponin I (0.000-0.034) ng/mL NT-Pro-B Natriuret Pep 3150 pg/mL Total Protein 7.0 (6.3-8.2) g/dL Albumin 3.8 (3.5-5.0) g/dL Urine Color Urine Appearance (Clear) Urine pH (5.0-8.0) Ur Specific [place] (1.001-1.035) Urine Protein (Negative) Urine Glucose (UA) (Negative) Urine Ketones (Negative) Urine Blood (Negative) Urine Nitrite (Negative) Urine Bilirubin (Negative) Urine Urobilinogen (<2.0) mg/dL Ur Leukocyte Esterase (Negative) Urine RBC (0-5) /hpf Urine WBC (0-5) /hpf Ur Squamous Epith Cells (0-4) /hpf Amorphous Sediment (None) /hpf Urine Bacteria (None) /hpf Urine Mucus (None) /hpf Coronavirus (PCR) (Not Detectd) 04/05/22 04/05/22 04/05/22 Range/Units 10:57 11:00 11:04 WBC (3.8-10.6) k/uL RBC (3.80-5.40) m/uL Hgb (11.4-16.0) gm/dL Hct (34.0-46.0) % MCV (80.0-100.0) fL MCH (25.0-35.0) pg MCHC (31.0-37.0) g/dL RDW (11.5-15.5) % Plt Count (150-450) k/uL MPV Neutrophils % % Lymphocytes % % Monocytes % % Eosinophils % % Basophils % % Neutrophils # (1.3-7.7) k/uL Lymphocytes # (1.0-4.8) k/uL Monocytes # (0-1.0) k/uL Eosinophils # (0-0.7) k/uL Basophils # (0-0.2) k/uL Hypochromasia PT (9.0-12.0) sec INR (<1.2) APTT (22.0-30.0) sec VBG pH (7.31-7.41) VBG pCO2 (37-51) mmHg VBG HCO3 (24-28) mmol/L Sodium (137-145) mmol/L Potassium (3.5-5.1) mmol/L Chloride (98-107) mmol/L Carbon Dioxide (22-30) mmol/L Anion Gap mmol/L BUN (7-17) mg/dL Creatinine (0.52-1.04) mg/dL Est GFR (CKD-EPI)AfAm (>60 ml/min/1.73 sqM) Est GFR (CKD-EPI)NonAf (>60 ml/min/1.73 sqM) Glucose (74-99) mg/dL POC Glucose (mg/dL) (70-110) mg/dL POC Glu Personal Security Specialist ID Lactic Ac Sepsis Rflx Y Plasma Lactic Acid [place] (0.7-2.0) mmol/L Calcium (8.4-10.2) mg/dL Magnesium (1.6-2.3) mg/dL Total Bilirubin (0.2-1.3) mg/dL AST (14-36) U/L ALT (4-34) U/L Alkaline Phosphatase (38-126) U/L Ammonia (<30) umol/L Creatine Kinase (30-135) U/L Troponin I 0.056 H* (0.000-0.034) ng/mL NT-Pro-B Natriuret Pep pg/mL Total Protein (6.3-8.2) g/dL Albumin (3.5-5.0) g/dL Urine Color Yellow Urine Appearance Turbid H (Clear) Urine pH 5.5 (5.0-8.0) Ur Specific [place] 1.019 (1.001-1.035) Urine Protein 2+ H (Negative) Urine Glucose (UA) Negative (Negative) Urine Ketones Negative (Negative) Urine Blood Moderate H (Negative) Urine Nitrite Negative (Negative) Urine Bilirubin Negative (Negative) Urine Urobilinogen <2.0 (<2.0) mg/dL Ur Leukocyte Esterase Large H (Negative) Urine RBC 14 H (0-5) /hpf Urine WBC 56 H (0-5) /hpf Ur Squamous Epith Cells 11 H (0-4) /hpf Amorphous Sediment Occasional H (None) /hpf Urine Bacteria Moderate H (None) /hpf Urine Mucus Occasional H (None) /hpf Coronavirus (PCR) (Not Detectd) 04/05/22 04/05/22 04/05/22 Range/Units 11:59 14:06 14:20 WBC (3.8-10.6) k/uL RBC (3.80-5.40) m/uL Hgb (11.4-16.0) gm/dL Hct (34.0-46.0) % MCV (80.0-100.0) fL MCH (25.0-35.0) pg MCHC (31.0-37.0) g/dL RDW (11.5-15.5) % Plt Count (150-450) k/uL MPV Neutrophils % % Lymphocytes % % Monocytes % % Eosinophils % % Basophils % % Neutrophils # (1.3-7.7) k/uL Lymphocytes # (1.0-4.8) k/uL Monocytes # (0-1.0) k/uL Eosinophils # (0-0.7) k/uL Basophils # (0-0.2) k/uL Hypochromasia PT (9.0-12.0) sec INR (<1.2) APTT (22.0-30.0) sec VBG pH 7.15 L* (7.31-7.41) VBG pCO2 58 H (37-51) mmHg VBG HCO3 20 L (24-28) mmol/L Sodium (137-145) mmol/L Potassium (3.5-5.1) mmol/L Chloride (98-107) mmol/L Carbon Dioxide (22-30) mmol/L Anion Gap mmol/L BUN (7-17) mg/dL Creatinine (0.52-1.04) mg/dL Est GFR (CKD-EPI)AfAm (>60 ml/min/1.73 sqM) Est GFR (CKD-EPI)NonAf (>60 ml/min/1.73 sqM) Glucose (74-99) mg/dL POC Glucose (mg/dL) (70-110) mg/dL POC Glu Personal Security Specialist ID Lactic Ac Sepsis Rflx Plasma Lactic Acid [place] 4.0 H* (0.7-2.0) mmol/L Calcium (8.4-10.2) mg/dL Magnesium (1.6-2.3) mg/dL Total Bilirubin (0.2-1.3) mg/dL AST (14-36) U/L ALT (4-34) U/L Alkaline Phosphatase (38-126) U/L Ammonia (<30) umol/L Creatine Kinase (30-135) U/L Troponin I (0.000-0.034) ng/mL NT-Pro-B Natriuret Pep pg/mL Total Protein (6.3-8.2) g/dL Albumin (3.5-5.0) g/dL Urine Color Urine Appearance (Clear) Urine pH (5.0-8.0) Ur Specific [place] (1.001-1.035) Urine Protein (Negative) Urine Glucose (UA) (Negative) Urine Ketones (Negative) Urine Blood (Negative) Urine Nitrite (Negative) Urine Bilirubin (Negative) Urine Urobilinogen (<2.0) mg/dL Ur Leukocyte Esterase (Negative) Urine RBC (0-5) /hpf Urine WBC (0-5) /hpf Ur Squamous Epith Cells (0-4) /hpf Amorphous Sediment (None) /hpf Urine Bacteria (None) /hpf Urine Mucus (None) /hpf Coronavirus (PCR) Not Detected (Not Detectd) Disposition Clinical Impression: Spontaneous pneumothorax, Sepsis, UTI (urinary tract infection), Dehydration, Lactic acidosis Disposition: ADMITTED IP TO THIS [facility] Condition: Serious Time of Disposition: 14:30 Procedures - [place] Protocol (Time Out) Procedure Performed:: Conscious Sedation Performing Provider: Genaro Catherine Nurse: Nighat Carey Respiratory Therapist: Chetna Yost Patient Identification (2 identifiers required): Chart, Verbal, Arm Band, Name Patient/Legal Bellman has Confirmed: Identity Site: Right Chest Site Marked: Yes Site Verified With Patient/Guardian: Yes Final Confirmation: Procedure, Site - Sepsis Sepsis Focused Exam #1 Time Sepsis Criteria Met: 11:35 Sepsis Focused Exam Date: 04/05/22 Sepsis Focused Exam Time: 14:30 Sepsis Focused Exam Complete: Yes Vital Signs & RN Notes Reviewed: Yes Capillary Refill: < 2 Seconds: Fingers, Toes Peripheral Pulses: Normal: Radial (R), Radial (L) Skin Color: Normal for Patient Respiratory Exam: normal lung sounds Cardiovascular Exam: regular rate
[2022-04-05] MEDS ORDERED: THIAMINE 100 MG/ML 2 ML VIAL IM STA (16:36)
[2022-04-05] MEDS ORDERED: IPRATROPIUM-ALBUTEROL 3 ML NEB INHALATION PRN (16:36)
[2022-04-05] MEDS ORDERED: cloNIDine HCL 0.1 MG TAB PO PRN (16:36)
[2022-04-05] MEDS ORDERED: HYDROcodone/APAP 5-325MG 1 EACH TAB PO PRN (16:36)
[2022-04-05] MEDS: SODIUM CHLORIDE 0.9% 1,000 ML IV SCH (17:10)
[2022-04-05] MEDS: IPRATROPIUM-ALBUTEROL 3 ML NEB INHALATION SCH (20:19)
[2022-04-05 20:30] LABS: Glucose,Whole Blood 137 mg/dL (70-110)
[2022-04-05] MEDS: METOPROLOL SUCCINATE (ER) 100 MG TAB.ER.24H PO SCH (21:05)
[2022-04-05] MEDS: LOSARTAN 50 MG TAB PO SCH (21:05)
[2022-04-06] MEDS: CEFEPIME 2 GM in SODIUM CHLORIDE 0.9% 100 ML IVPB SCH ×3 (00:41→23:05)
[2022-04-06] MEDS: HEPARIN SODIUM,PORCINE/PF 5,000 UNIT/0.5 ML SYRINGE SQ SCH ×4 (00:41→23:20)
--- NOTE | 2022-04-06 02:59 | HP ---
HISTORY AND PHYSICAL CHIEF COMPLAINT: Pneumothorax, right and fall. HISTORY OF PRESENT ILLNESS: This 72-year-old woman with a past medical history of diabetes, hypertension, apparently living by herself. The patient's p.o. intake appears to be extremely poor. The patient apparently was not seen for the last 2 days, and a well check resulted the patient lying on the floor, and the patient was found to have right pneumothorax. Chest tube was inserted, and the patient admitted for further evaluation and treatment. The patient also had UTI also. Troponin was elevated at 0.056. There is no history of any fever, rigors, or chills at this time. PAST MEDICAL HISTORY: Reviewed, include hypertension and diabetes mellitus. HOME MEDICATIONS: Reviewed, include Benadryl, dose and rest of the medication noted. ALLERGIES: None. FAMILY HISTORY: No history of heart diseases or strokes in the family. SOCIAL HISTORY: Smoking, history of ETOH. REVIEW OF SYSTEMS: A 14-point review of systems is negative except as mentioned earlier. PHYSICAL EXAMINATION: VITAL SIGNS: Pulse is 70, blood pressure 162/84, respirations 18. HEENT: Conjunctivae normal. NECK: No JVD. CARDIOVASCULAR: S1, S2. RESPIRATION: Bilateral scattered rhonchi and crackles. Right chest tube. ABDOMEN: Soft, nontender. LEGS: No edema. No swelling. NERVOUS SYSTEM: No focal deficits. SKIN: No ulcer, rash, bleeding. JOINTS: No active deforming arthropathy. LABORATORY DATA: Reviewed. Troponin 0.056. ASSESSMENT: 1. Possible fall and right pneumothorax. 2. Acute urinary tract infection. 3. Troponin 0.056, indeterminate. 4. Diabetes mellitus type 2. 5. Hypertension. 6. Multiple medical problems. 7. Gait dysfunction. RECOMMENDATIONS: In this 72-year-old woman, who presented with multiple complex medical issues, we will monitor the patient closely. We will consult Dr. Rincon and also Dr. Salas has been consulted. Cardiology will be consulted for elevated troponin. PT/OT will be consulted. Resume the home medications, and I would also initiate empiric antibiotics, obtain cultures. PT/OT evaluation, eventually ECF rehab. Discussed with daughter-in- law at the bedside, who was also concerned about the patient's current living situation. We will ask the paraplanner to follow. MMODL / IJN: [id number] /
[2022-04-06] MEDS: VANCOMYCIN 1,000 MG in SODIUM CHLORIDE 0.9% 250 ML IVPB SCH ×2 (04:17→20:11)
[2022-04-06 06:10] LABS: Glucose,Whole Blood 130 mg/dL (70-110)
[2022-04-06] MEDS: SODIUM CHLORIDE 0.9% 1,000 ML IV SCH ×2 (06:14→17:26)
--- NOTE | 2022-04-06 07:19 | XR ---
EXAMINATION TYPE: XR chest 1V portable DATE OF EXAM: 04/06/2022 6:36 AM COMPARISON: Chest radiographs from 04/05/2022, CT chest abdomen pelvis 04/05/2022. TECHNIQUE: XR chest 1V portable Portable AP radiograph of the chest. CLINICAL INDICATION:Female, 72 years old with history of pneumothorax; FINDINGS: Lungs/Pleura: There is no evidence of pleural effusion. No sizable pneumothorax. Persistent streaky b asilar airspace opacities with left basilar retrocardiac opacity. Reduced lucency in the lung apices. Pulmonary vascularity: Unremarkable. Heart/mediastinum: Cardiomediastinal silhouette is unremarkable. Atherosclerotic calcifications are seen in the aorta. Musculoskeletal: No acute osseous pathology. Unchanged bilateral rib deformities. Other findings: None Lines/Tubes: Stable right pleural catheter with IMPRESSION: 1. Stable right pleural catheter without sizable pneumothorax. 2. Similar bibasilar streaky opacities with left basilar retrocardiac opacity corresponding to massl [place] consolidation on CT. 3. COPD changes.
[2022-04-06 07:52] LABS: Basophils % (A) 0 %; Eosinophils % (A) 0 %; HCT 35.8 % (34.0-46.0); Hypochromasia Moderate; Lymphocytes # (A) 1.2 k/uL (1.0-4.8); Lymphocytes % (A) 8 %; MCH 29.6 pg (25.0-35.0); MCHC 30.8 g/dL (31.0-37.0); MCV 96.2 fL (80.0-100.0); Mean Platelet Volume 8.3; Monocytes # (A) 0.4 k/uL (0-1.0); Monocytes % (A) 3 %; Neutrophils # (A) 13.7 k/uL (1.3-7.7); Neutrophils % (A) 88 %; Platelet Count 219 k/uL (150-450); RBC 3.72 m/uL (3.80-5.40); RDW 13.4 % (11.5-15.5); WBC 15.6 k/uL (3.8-10.6)
[2022-04-06 08:03] LABS: ALT 9 U/L (4-34); AST 15 U/L (14-36); African American GFR (CKD) >90 (>60 ml/min/1.73 sqM); Albumin 2.6 g/dL (3.5-5.0); Alkaline Phosphatase 74 U/L (38-126); Anion Gap 2 mmol/L; Blood Urea Nitrogen 18 mg/dL (7-17); Calcium 7.6 mg/dL (8.4-10.2); Carbon Dioxide 32 mmol/L (22-30); Chloride 106 mmol/L (98-107); Glucose 105 mg/dL (74-99); Non-African American GFR(CKD) 82 (>60 ml/min/1.73 sqM); Potassium 3.8 mmol/L (3.5-5.1); Sodium 140 mmol/L (137-145); Total Bilirubin 0.3 mg/dL (0.2-1.3)
[2022-04-06] MEDS: IPRATROPIUM-ALBUTEROL 3 ML NEB INHALATION SCH ×3 (08:07→19:34)
[2022-04-06] MEDS: ALPRAZolam 1 MG TAB PO PRN ×2 (09:21→20:14)
[2022-04-06] MEDS: THIAMINE 100 MG TAB PO SCH (09:22)
[2022-04-06] MEDS: LOSARTAN 50 MG TAB PO SCH ×2 (09:22→20:11)
[2022-04-06] MEDS: METOPROLOL SUCCINATE (ER) 100 MG TAB.ER.24H PO SCH ×2 (09:22→20:11)
[2022-04-06] MEDS: CITALOPRAM HYDROBROMIDE 20 MG TAB PO SCH (09:24)
--- NOTE | 2022-04-06 09:24 | P.GSCN ---
History of Present Illness Consult date: 04/06/22 Reason for Consult: Right-sided pneumothorax Requesting physician: Genaro Catherine History of present illness: This is a 72-year-old female patient follows on an outpatient basis with Dr. Janel Bailey for primary care. She has a previous medical history of hypertension, current tobacco dependence, occasional EtOH use, depression. She was brought into the emergency room at [facility] yesterday morning afte r a fall at home with unknown down time. She had not been seen for a couple of days and a friend had called EMS for a wellness check. She denies hitting her head or any loss of consciousness. States she tripped when going to the bathroom and fell onto her right side. Upon arrival to the emergency room she was found to be slightly confused, dehydrated. Chest x-ray was completed in the emergency room demonstrating COPD with 30-40% right-sided pneumothorax. A right-sided thoravent was placed by the emergency room physician with almost complete reexpansion of the lung demonstrated on follow-up chest x-ray as well as CT of the chest. Lab work revealed WBC is 15.1, creatinine 0.77, lactic acid 4.4, mild troponin elevation with max troponin 0.056 and trending down, BNP 3150, and UTI detected on urinalysis. Mann virus PCR was negative. Arterial blood gas was completed with pH 7.26, pCO2 72, pO2 58, bicarb 32. The patient was admitted for evaluation and treatment with consultation placed to cardiology and pulmonology as well as cardiothoracic surgery for management of pneumothorax . Review of Systems Review of systems was completed and was negative except as noted - Cardiovascular Cardiovascular Comment(s): Right-sided rib pain - Musculoskeletal Musculoskeleta Comment(s): Fall from standing Past Medical History Past Medical History: Hypertension Additional Past Medical History / Comment(s): pt states she does not have a history of diabetes History of Any Multi-Drug Resistant Organisms: None Reported Past Surgical History: Section Additional Past Surgical History / Comment(s): vain stripping left leg Past Psychological History: Anxiety, Depression Smoking Status: Current every day smoker Past Alcohol Use History: Occasional Additional Past Alcohol Use History / Comment(s): pt denies any alcohol use at this time, states she is an occasional drinker for special events Past Drug Use History: None Reported Additional History: Smokes 1 pack per day for 40 years although she has quit for short periods of time - Past Family History Mother Family Medical History: No Reported History Additional Family Medical History / Comment(s): at 80 years old of old age Father Family Medical History: No Reported History Additional Family Medical History / Comment(s): at 85 years old of old age Medications and Allergies Home Medications Medication Instructions Recorded Confirmed Type ALPRAZolam [Xanax] 1 mg PO TID PRN 10/15/20 04/05/22 History Citalopram Hydrobromide 20 mg PO DAILY 10/15/20 04/05/22 History [Citalopram HBr] Cyanocobalamin (Vitamin B-12) 1,000 mcg PO DAILY 10/15/20 04/05/22 History [Vitamin B-12] Losartan Potassium [Cozaar] 50 mg PO BID 10/15/20 04/05/22 History Metoprolol Succinate (ER) [Toprol 100 mg PO BID 10/15/20 04/05/22 History Xl] Vit C/E/Zn/Coppr/Lutein/Zeaxan 1 cap PO BID 10/15/20 04/05/22 History [Preservision Areds 2 Softgel] diphenhydrAMINE [Benadryl] 25 mg PO QID PRN 10/15/20 04/05/22 History Allergies Allergy/AdvReac Type Severity Reaction Status Date / Time No Known Allergies Allergy Verified 04/05/22 14:02 Surgical - Exam Vital Signs Temp Pulse Resp BP Pulse Ox 97.8 F 116 H 20 141/83 80 L 04/05/22 10:37 04/05/22 10:37 04/05/22 10:37 04/05/22 10:37 04/05/22 10:37 CONSTITUTIONAL: Awake and alert, appears comfortable, cooperative, mild rib pain, no acute distress EYES: Pupils equal, round, reactive to light, normal ocular movement ENT: Moist mucous membranes without oral lesions present, hard of hearing NECK: No masses, no bruits, trachea midline RESPIRATORY: Lungs sounds diminished bilaterally. Respirations even, nonlabored. Currently on 3 L nasal cannula with oxygen saturation 95%. Strong cough. Able to achieve 500 mL on her incentive spirometer. Right-sided t horavent present to continuous wall suction, no air leak present CARDIOVASCULAR: S1, S2 present. Regular rate and rhythm, sinus rhythm on telemetry. Palpable peripheral pulses bilaterally. No edema present. No calf pain or tenderness noted. GASTROINTESTINAL: Abdomen soft, nontender, nondistended without masses or organomegaly noted. There is no rebound or guarding present. Active bowel s ounds present 4 quadrants. GENITOURINARY: Deferred INTEGUMENTARY: Skin is warm and dry with evidence of good perfusion. NEUROLOGIC: Cranial nerves II through XII intact, normal coordination, no obvious motor or sensory deficits, speech is normal MUSKULOSKELETAL: Able to move all extremities, strength equal bilaterally, normal posture PSYCHIATRIC: Alert and oriented to person place and time, appropriate affect Results - Labs 04/06/22 07:33 04/07/22 07:35 Abnormal Lab Results - Last 24 Hours (Table) 04/05/22 04/05/22 04/05/22 Range/Units 10:43 10:47 10:47 WBC 15.1 H (3.8-10.6) k/uL Hct 46.3 H (34.0-46.0) % MCHC 30.5 L (31.0-37.0) g/dL Neutrophils # 12.7 H (1.3-7.7) k/uL PT 12.3 H (9.0-12.0) sec INR 1.2 H (<1.2) ABG pH (7.35-7.45) ABG pCO2 (35-45) mmHg ABG pO2 (83-108) mmHg ABG HCO3 (21-25) mmol/L ABG Total CO2 (19-24) mmol/L ABG O2 Saturation (94-97) % VBG pH (7.31-7.41) VBG pCO2 (37-51) mmHg VBG HCO3 (24-28) mmol/L BUN (7-17) mg/dL Glucose (74-99) mg/dL POC Glucose (mg/dL) 223 H (70-110) mg/dL Plasma Lactic Acid Zion (0.7-2.0) mmol/L Troponin I (0.000-0.034) ng/mL Urine Appearance (Clear) Urine Protein (Negative) Urine Blood (Negative) Ur Leukocyte Esterase (Negative) Urine RBC (0-5) /hpf Urine WBC (0-5) /hpf Ur Squamous Epith Cells (0-4) /hpf Amorphous Sediment (None) /hpf Urine Bacteria (None) /hpf Urine Mucus (None) /hpf 04/05/22 04/05/22 04/05/22 Range/Units 10:47 10:57 10:57 WBC (3.8-10.6) k/uL Hct (34.0-46.0) % MCHC (31.0-37.0) g/dL Neutrophils # (1.3-7.7) k/uL PT (9.0-12.0) sec INR (<1.2) ABG pH (7.35-7.45) ABG pCO2 (35-45) mmHg ABG pO2 (83-108) mmHg ABG HCO3 (21-25) mmol/L ABG Total CO2 (19-24) mmol/L ABG O2 Saturation (94-97) % VBG pH (7.31-7.41) VBG pCO2 (37-51) mmHg VBG HCO3 (24-28) mmol/L BUN 27 H (7-17) mg/dL Glucose 206 H (74-99) mg/dL POC Glucose (mg/dL) (70-110) mg/dL Plasma Lactic Acid Zion 4.4 H* (0.7-2.0) mmol/L Troponin I 0.056 H* (0.000-0.034) ng/mL Urine Appearance (Clear) Urine Protein (Negative) Urine Blood (Negative) Ur Leukocyte Esterase (Negative) Urine RBC (0-5) /hpf Urine WBC (0-5) /hpf Ur Squamous Epith Cells (0-4) /hpf Amorphous Sediment (None) /hpf Urine Bacteria (None) /hpf Urine Mucus (None) /hpf 04/05/22 04/05/22 04/05/22 Range/Units 11:00 14:06 14:20 WBC (3.8-10.6) k/uL Hct (34.0-46.0) % MCHC (31.0-37.0) g/dL Neutrophils # (1.3-7.7) k/uL PT (9.0-12.0) sec INR (<1.2) ABG pH (7.35-7.45) ABG pCO2 (35-45) mmHg ABG pO2 (83-108) mmHg ABG HCO3 (21-25) mmol/L ABG Total CO2 (19-24) mmol/L ABG O2 Saturation (94-97) % VBG pH 7.15 L* (7.31-7.41) VBG pCO2 58 H (37-51) mmHg VBG HCO3 20 L (24-28) mmol/L BUN (7-17) mg/dL Glucose (74-99) mg/dL POC Glucose (mg/dL) (70-110) mg/dL Plasma Lactic Acid Zion 4.0 H* (0.7-2.0) mmol/L Troponin I (0.000-0.034) ng/mL Urine Appearance Turbid H (Clear) Urine Protein 2+ H (Negative) Urine Blood Moderate H (Negative) Ur Leukocyte Esterase Large H (Negative) Urine RBC 14 H (0-5) /hpf Urine WBC 56 H (0-5) /hpf Ur Squamous Epith Cells 11 H (0-4) /hpf Amorphous Sediment Occasional H (None) /hpf Urine Bacteria Moderate H (None) /hpf Urine Mucus Occasional H (None) /hpf 04/05/22 04/05/22 04/05/22 Range/Units 14:57 14:58 17:42 WBC (3.8-10.6) k/uL Hct (34.0-46.0) % MCHC (31.0-37.0) g/dL Neutrophils # (1.3-7.7) k/uL PT (9.0-12.0) sec INR (<1.2) ABG pH 7.26 L (7.35-7.45) ABG pCO2 72 H* (35-45) mmHg ABG pO2 58 L* (83-108) mmHg ABG HCO3 32 H (21-25) mmol/L ABG Total CO2 35 H (19-24) mmol/L ABG O2 Saturation 87.1 L (94-97) % VBG pH (7.31-7.41) VBG pCO2 (37-51) mmHg VBG HCO3 (24-28) mmol/L BUN (7-17) mg/dL Glucose (74-99) mg/dL POC Glucose (mg/dL) (70-110) mg/dL Plasma Lactic Acid Zion (0.7-2.0) mmol/L Troponin I 0.053 H* 0.046 H* (0.000-0.034) ng/mL Urine Appearance (Clear) Urine Protein (Negative) Urine Blood (Negative) Ur Leukocyte Esterase (Negative) Urine RBC (0-5) /hpf Urine WBC (0-5) /hpf Ur Squamous Epith Cells (0-4) /hpf Amorphous Sediment (None) /hpf Urine Bacteria (None) /hpf Urine Mucus (None) /hpf 04/05/22 04/05/22 04/05/22 Range/Units 17:42 20:29 21:24 WBC (3.8-10.6) k/uL Hct (34.0-46.0) % MCHC (31.0-37.0) g/dL Neutrophils # (1.3-7.7) k/uL PT (9.0-12.0) sec INR (<1.2) ABG pH (7.35-7.45) ABG pCO2 (35-45) mmHg ABG pO2 (83-108) mmHg ABG HCO3 (21-25) mmol/L ABG Total CO2 (19-24) mmol/L ABG O2 Saturation (94-97) % VBG pH (7.31-7.41) VBG pCO2 (37-51) mmHg VBG HCO3 (24-28) mmol/L BUN (7-17) mg/dL Glucose (74-99) mg/dL POC Glucose (mg/dL) 137 H (70-110) mg/dL Plasma Lactic Acid Zion 2.5 H* 2.6 H* (0.7-2.0) mmol/L Troponin I (0.000-0.034) ng/mL Urine Appearance (Clear) Urine Protein (Negative) Urine Blood (Negative) Ur Leukocyte Esterase (Negative) Urine RBC (0-5) /hpf Urine WBC (0-5) /hpf Ur Squamous Epith Cells (0-4) /hpf Amorphous Sediment (None) /hpf Urine Bacteria (None) /hpf Urine Mucus (None) /hpf 04/06/22 Range/Units 06:08 WBC (3.8-10.6) k/uL Hct (34.0-46.0) % MCHC (31.0-37.0) g/dL Neutrophils # (1.3-7.7) k/uL PT (9.0-12.0) sec INR (<1.2) ABG pH (7.35-7.45) ABG pCO2 (35-45) mmHg ABG pO2 (83-108) mmHg ABG HCO3 (21-25) mmol/L ABG Total CO2 (19-24) mmol/L ABG O2 Saturation (94-97) % VBG pH (7.31-7.41) VBG pCO2 (37-51) mmHg VBG HCO3 (24-28) mmol/L BUN (7-17) mg/dL Glucose (74-99) mg/dL POC Glucose (mg/dL) 130 H (70-110) mg/dL Plasma Lactic Acid Zion (0.7-2.0) mmol/L Troponin I (0.000-0.034) ng/mL Urine Appearance (Clear) Urine Protein (Negative) Urine Blood (Negative) Ur Leukocyte Esterase (Negative) Urine RBC (0-5) /hpf Urine WBC (0-5) /hpf Ur Squamous Epith Cells (0-4) /hpf Amorphous Sediment (None) /hpf Urine Bacteria (None) /hpf Urine Mucus (None) /hpf Microbiology - Last 24 Hours (Table) 04/05/22 11:00 Urine Culture - Preliminary Urine,Voided Diabetes panel 04/05/22 Range/Units 10:57 Sodium 141 (137-145) mmol/L Potassium 4.1 (3.5-5.1) mmol/L Chloride 101 (98-107) mmol/L Carbon Dioxide 28 (22-30) mmol/L BUN 27 H (7-17) mg/dL Creatinine 0.77 (0.52-1.04) mg/dL Glucose 206 H (74-99) mg/dL Calcium 8.8 (8.4-10.2) mg/dL AST 28 (14-36) U/L ALT 15 (4-34) U/L Alkaline Phosphatase 97 (38-126) U/L Total Protein 7.0 (6.3-8.2) g/dL Albumin 3.8 (3.5-5.0) g/dL Calcium panel 04/05/22 Range/Units 10:57 Calcium 8.8 (8.4-10.2) mg/dL Albumin 3.8 (3.5-5.0) g/dL Pituitary panel 04/05/22 Range/Units 10:57 Sodium 141 (137-145) mmol/L Potassium 4.1 (3.5-5.1) mmol/L Chloride 101 (98-107) mmol/L Carbon Dioxide 28 (22-30) mmol/L BUN 27 H (7-17) mg/dL Creatinine 0.77 (0.52-1.04) mg/dL Glucose 206 H (74-99) mg/dL Calcium 8.8 (8.4-10.2) mg/dL Adrenal panel 04/05/22 Range/Units 10:57 Sodium 141 (137-145) mmol/L Potassium 4.1 (3.5-5.1) mmol/L Chloride 101 (98-107) mmol/L Carbon Dioxide 28 (22-30) mmol/L BUN 27 H (7-17) mg/dL Creatinine 0.77 (0.52-1.04) mg/dL Glucose 206 H (74-99) mg/dL Calcium 8.8 (8.4-10.2) mg/dL Total Bilirubin 0.6 (0.2-1.3) mg/dL AST 28 (14-36) U/L ALT 15 (4-34) U/L Alkaline Phosphatase 97 (38-126) U/L Total Protein 7.0 (6.3-8.2) g/dL Albumin 3.8 (3.5-5.0) g/dL - Imaging Chest x-ray: report reviewed, image reviewed CT scan - chest: report reviewed, image reviewed Assessment and Plan Assessment: 1. Spontaneous right-sided pneumothorax, first occurrence, resolved after placement of thoravent 2. Fall from standing 3. Right-sided rib pain secondary to above 4. Urinary tract infection 5. Mildly elevated troponin 6. History of hypertension 7. History of depression 8. Current tobacco dependence 9. Occasional EtOH use Plan: The patient was seen and examined at the bedside with Dr. Salas. Chart/diagnostics were reviewed. There is currently no air leak present in her thoravent and no pneumothorax noted on her chest x-ray this morning. We did place her thoravent to waterseal and we'll monitor for the next 24 hours. Incentive spirometry was encouraged. Smoking cessation counseling and education were offered, patient was counseled that she needs to quit smoking. Wean O2 as tolerated. Will monitor daily x-rays. Increase activity as tolerated. Medical management of other comorbidities per primary care, pulmonology, cardiology. Thank you for this consult. We will continue to follow along with you and make further recommend patients as appropriate I have personally seen and examined the patient, performed the documentation and the assessment and plan as written. Number of minutes spent on the visit: 30. Candie Simon, LEANDRA-C Patient seen and examined. Agree with POST FRAMER note. R Ptx post fall, resolved with thoravent placed by ER Attending. Keep thoravent to suction. IS. Serial CXR. Time spent 30 minutes. HOLLIS SALAS MD
--- NOTE | 2022-04-06 10:23 | CDI ---
Documentation Clarification Form Date: 04/06/2022 10:06:52 AM From: Chetna BucioSilvaTAMARA goodman, CCDS Admit Date: 04/05/2022 02:23:00 PM Patient Name: Meredith Massey Visit Number: [id number] Discharge Date: ATTENTION: The Clinical Documentation Specialists (CDI) and [facility] Coding Staff appreciate your assistance in clarifying documentation. Please respond to the clarification below the line at the bottom and electronically sign. The CDI & [facility] Coding staff will review the response and follow-up if needed. Please note: Queries are made part of the Legal Health Record. If you have any questions, please contact the author of this message via ITS. Dr. Loy Polo: Possible Fall and Right Pneumothorax is documented in the 04/05 History & Physical. Per the 04/06 Cardiothoracic Surgery Consult Assessment: Spontaneous Right Side Pneumothorax, first occurrence, resolved with placement of Thoravent. Further specificity regarding the Pneumothorax is requested. History/risk factors per the 04/05 H/P: Hypertension, DM II, Gait Dysfunction, Smoker. Clinical Indicators: Presented to the ED on 04/05 with SOB after a fall and being found down at home in her bathroom after several days. Unknown downtime. Appeared dehydrated, found hypoxic at the scene on room air, improved w/NRB, VSS otherwise within normal. Patient complained of right posterior rib pain. Was confused. Admit with Spontaneous Pneumothorax, Sepsis, UTI, Dehydration, Lactic Acidosis. 04/05 VS: T 97.8, P 116, R 20 (sob), BP 141/83, PO 80 on 15% nrb, BMI: 19.1 04/05 LAB: WBC 15.1, Hct 46.3, Neutrophils 12.7; PT 12.3, INR 1.2; BUN 27, Glucose 206, Lactic Acid 4.4, 4.0, 2.5, 2/6; Troponin 0.056, 0.053, 0.046. 04/05 Blood Gas ABG: pH 7.26, pCO2 72, pO2 58, HCO3 32, Total CO2 35, O2 Sat 87.1 04/05 Blood Gas VBG: pH 7.15, pCO2 58, HCO3 20 04/05 RAD: CXR: COPD w/approximate 30-40% right side pneumothorax. Component of tension pneumothorax not excluded. Rib deformities along the lateral right rib cage estimated at the right sixth, seventh & eighth ribs suspicious for fracture. 04/05 Repeat CXR: Interval placement of right thoracotomy tube, reduction of prior pneumothorax without evidence of persistent pneumothorax. Treatment 04/05: Admit to Telemetry, Chest tube placement in ED, Incentive spirometry, Blood cultures, Urine culture, O2: nrb, IV Na Chl 1,000 mls @ 999 mls/hr q1H x2, IV Ketamine 60 mg x1, IV Na Chl 1,000 mls @ 100 mls/hr q10H, IV Vancomycin 250 mls @ 125 mls/hr x1, IV Cefepime 100 mls @ 25 mls/hr q8H, IV Toradol 15 mg q6H, IV Morphine 4 mg q4H/prn, Heparin 5,000 units sq q8H, INH Duoneb 3 ml TID/prn. Please further specify the Pneumothorax, if known: [ ] Acute Traumatic Pneumothorax [ ] Acute Spontaneous Pneumothorax [ ] Tension pneumothorax [ ] Other, please specify [ ] Unable to determine (Template Last Revised: August 2020) Acute Traumatic Pneumothorax MTDD
--- NOTE | 2022-04-06 10:26 | P.CRDCN ---
History of Present Illness Consult date: 04/06/22 History of present illness: HISTORY OF PRESENT ILLNESS: This is a 72-year-old female with a past medical history significant for hypertension, anxiety, and nicotine dependence. 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 We have been asked to see the patient in consultation for abnormal troponins. Patient examined at the bedside. Patient presented to the hospital after sustaining a fall at home with unknown downtime. The patient states that she used the bathroom and afterwards she tripped and fell on her right side. The patient was found to have a right-sided pneumothorax and a right-sided Thoravent was placed. The patient reports some soreness at the insertion site. She currently denies shortness of breath. She denies chest pain. Denies dizziness or lightheadedness. Vital signs are stable. She denies any previous history of coronary artery disease. * EKG reveals sinus mechanism with nonspecific ST-T wave changes * Initial chest x-ray revealed 30-40% right-sided pneumothorax. * Laboratory data: WBC 15.6. Hemoglobin 11.0. Platelet count 219. Sodium 140. Potassium 3.8. BUN 18. Creatinine 0.73. Troponin 0.056. 0.053. 0.046. * Current home cardiac medications include losartan 50 mg twice a day and metoprolol succinate 100 mg twice a day * No previous echocardiogram or cardiac catheterization records available for review REVIEW OF SYSTEMS: At the time of my exam: CONSTITUTIONAL: Denies fever or chills. HEENT: Denies blurred vision, vision changes, or eye pain. Denies hemoptysis CARDIOVASCULAR: Denies chest pain. Denies orthopnea. Denies PND. Denies palpitations RESPIRATORY: Denies shortness of breath. GASTROINTESTINAL: Denies abdominal pain. Denies nausea or vomiting. HEMATOLOGIC: Denies bleeding disorders. GENITOURINARY: Denies any blood in urine. SKIN: Denies pruitis. Denies rash. PHYSICAL EXAM: VITAL SIGNS: Reviewed. GENERAL: Well-developed in no acute distress. HEENT: Head is normocephalic. Pupils are equal, round. Sclerae anicteric. Mucous membranes of the mouth are moist. Neck supple. No JVD or thyromegaly LUNGS: Respirations even and unlabored. Lungs diminished with expiratory wheezing and rhonchi noted HEART: Regular rate and rhythm. S1 and S2 heard. ABDOMEN: Soft. Nondistended. Nontender. EXTREMITIES: Normal range of motion. No clubbing or cyanosis. Peripheral pulses intact. No lower extremity edema NEUROLOGIC: Awake and alert. Oriented x 3. ASSESSMENT: Status post fall with unknown downtime Spontaneous right-sided pneumothorax Abnormal troponins, not suggestive of primary myocardial injury Suspected COPD Hypertension Anxiety Nicotine dependence PLAN: An acute coronary event has been ruled out Resume home cardiac medications Obtain 2-D echo to assess cardiac structure and function Smoking cessation recommended Further recommendations pending patient's course Nurse practitioner note has been reviewed by physician. Signing provider agrees with the documented findings, assessment, and plan of care. Past Medical History Past Medical History: Hypertension Additional Past Medical History / Comment(s): pt states she does not have a history of diabetes History of Any Multi-Drug Resistant Organisms: None Reported Past Surgical History: Section Additional Past Surgical History / Comment(s): vain stripping left leg Past Psychological History: Anxiety, Depression Smoking Status: Current every day smoker Past Alcohol Use History: Occasional Additional Past Alcohol Use History / Comment(s): pt denies any alcohol use at this time, states she is an occasional drinker for special events Past Drug Use History: None Reported - Past Family History Mother Family Medical History: No Reported History Additional Family Medical History / Comment(s): at 80 years old of old age Father Family Medical History: No Reported History Additional Family Medical History / Comment(s): at 85 years old of old age Medications and Allergies Home Medications Medication Instructions Recorded Confirmed Type ALPRAZolam [Xanax] 1 mg PO TID PRN 10/15/20 04/05/22 History Citalopram Hydrobromide 20 mg PO DAILY 10/15/20 04/05/22 History [Citalopram HBr] Cyanocobalamin (Vitamin B-12) 1,000 mcg PO DAILY 10/15/20 04/05/22 History [Vitamin B-12] Losartan Potassium [Cozaar] 50 mg PO BID 10/15/20 04/05/22 History Metoprolol Succinate (ER) [Toprol 100 mg PO BID 10/15/20 04/05/22 History Xl] Vit C/E/Zn/Coppr/Lutein/Zeaxan 1 cap PO BID 10/15/20 04/05/22 History [Preservision Areds 2 Softgel] diphenhydrAMINE [Benadryl] 25 mg PO QID PRN 10/15/20 04/05/22 History Allergies Allergy/AdvReac Type Severity Reaction Status Date / Time No Known Allergies Allergy Verified 04/05/22 14:02 Physical Exam Vitals: Vital Signs Temp Pulse Pulse Resp BP BP Pulse Ox 04/06/22 08:22 82 04/06/22 08:08 82 04/06/22 04:00 99.8 F H 74 22 105/62 95 04/06/22 00:20 100 F H 72 20 105/65 98 04/05/22 20:30 77 04/05/22 20:19 80 94 L 04/05/22 20:15 98.9 F 84 22 127/68 99 04/05/22 18:00 79 18 135/88 95 04/05/22 15:30 70 18 162/84 98 04/05/22 14:30 98 04/05/22 13:00 67 16 117/65 100 04/05/22 12:15 81 16 109/82 98 04/05/22 12:10 83 16 90/59 98 04/05/22 12:05 84 16 97/52 98 04/05/22 12:00 84 18 90/59 98 04/05/22 11:55 85 16 93/45 99 04/05/22 11:50 96 18 139/79 100 04/05/22 11:47 98 18 160/93 99 04/05/22 11:08 04/05/22 10:55 105 H 152/77 93 L 04/05/22 10:40 20 04/05/22 10:37 97.8 F 116 H 20 141/83 80 L FiO2 04/06/22 08:22 04/06/22 08:08 04/06/22 04:00 04/06/22 00:20 04/05/22 20:30 04/05/22 20:19 04/05/22 20:15 04/05/22 18:00 04/05/22 15:30 04/05/22 14:30 04/05/22 13:00 04/05/22 12:15 04/05/22 12:10 04/05/22 12:05 04/05/22 12:00 04/05/22 11:55 04/05/22 11:50 10/05/22 11:47 04/05/22 11:08 100 04/05/22 10:55 04/05/22 10:40 04/05/22 10:37 Intake and Output 04/05/22 04/06/22 04/06/22 22:59 06:59 14:59 Intake Total 118 Balance 118 Intake: Oral 118 Other: Voiding Method Diaper Bedpan Diaper # Voids 1 1 Weight 52.163 kg Results 04/06/22 07:33 04/06/22 07:33 Cardiac Enzymes 04/05/22 04/05/22 04/05/22 Range/Units 10:57 10:57 14:58 AST 28 (14-36) U/L Troponin I 0.056 H* 0.053 H* (0.000-0.034) ng/mL 04/05/22 04/06/22 Range/Units 17:42 07:33 AST 15 (14-36) U/L Troponin I 0.046 H* (0.000-0.034) ng/mL Coagulation 04/05/22 Range/Units 10:47 PT 12.3 H (9.0-12.0) sec APTT 23.8 (22.0-30.0) sec CBC 04/05/22 04/06/22 Range/Units 10:47 07:33 WBC 15.1 H 15.6 H (3.8-10.6) k/uL RBC 4.75 3.72 L (3.80-5.40) m/uL Hgb 14.1 11.0 L D (11.4-16.0) gm/dL Hct 46.3 H 35.8 (34.0-46.0) % Plt Count 328 219 (150-450) k/uL Comprehensive Metabolic Panel 04/05/22 04/06/22 Range/Units 10:57 07:33 Sodium 141 140 (137-145) mmol/L Potassium 4.1 3.8 (3.5-5.1) mmol/L Chloride 101 106 (98-107) mmol/L Carbon Dioxide 28 32 H (22-30) mmol/L BUN 27 H 18 H (7-17) mg/dL Creatinine 0.77 0.73 (0.52-1.04) mg/dL Glucose 206 H 105 H (74-99) mg/dL Calcium 8.8 7.6 L (8.4-10.2) mg/dL AST 28 15 (14-36) U/L ALT 15 9 (4-34) U/L Alkaline Phosphatase 97 74 (38-126) U/L Total Protein 7.0 5.0 L (6.3-8.2) g/dL Albumin 3.8 2.6 L (3.5-5.0) g/dL Current Medications Generic Name Dose Route Start Last Admin Trade Name Freq PRN Reason Stop Dose Admin Hydrocodone Bitart/Acetaminophen 1 each 04/05/22 16:36 Hydrocodone/Apap 5-325mg 1 Each Tab PO Q6HR PRN Pain Albuterol/Ipratropium 3 ml 04/05/22 20:00 04/06/22 08:07 Ipratropium-Albuterol 3 Ml Neb INHALATION 3 ml RT-TID JOCELYN Administration Albuterol/Ipratropium 3 ml 04/05/22 16:36 Ipratropium-Albuterol 3 Ml Neb INHALATION RT-TID PRN Shortness Of Breath Or Wheezing Alprazolam 1 mg 04/06/22 09:10 04/06/22 09:21 Alprazolam 1 Mg Tab PO 1 mg TID PRN Administration Anxiety Citalopram Hydrobromide 20 mg 04/06/22 09:15 04/06/22 09:24 Citalopram Hydrobromide 20 Mg Tab PO 20 mg DAILY JOCELYN Administration Heparin Sodium (Porcine) 5,000 unit 04/05/22 16:00 04/06/22 09:22 Heparin Sodium,Porcine/Pf 5,000 Unit/0.5 Ml Syringe SQ 5,000 unit Q8HR JOCELYN Administration Vancomycin HCl 1,000 mg/ 250 mls @ 125 mls/hr 04/06/22 04:00 04/06/22 04:17 Sodium Chloride IVPB 125 mls/hr Q16H JOCELYN Administration Cefepime HCl 2 gm/ Sodium 100 mls @ 25 mls/hr 04/06/22 00:00 04/06/22 00:41 Chloride IVPB 25 mls/hr Q12H JOCELYN Administration Protocol Sodium Chloride 1,000 mls @ 75 mls/hr 04/05/22 16:45 04/06/22 06:14 Saline 0.9% IV Not Given .[id number] JOCELYN Ketorolac Tromethamine 15 mg 04/05/22 14:22 Ketorolac 15 Mg/Ml 1 Ml Vial IVP 04/08/22 14:24 Q6HR PRN Moderate Pain (Scale 4 to 6) Losartan Potassium 50 mg 04/05/22 21:00 04/06/22 09:22 Losartan 50 Mg Tab PO 50 mg BID JOCELYN Administration Metoprolol Succinate 100 mg 04/05/22 21:00 04/06/22 09:22 Metoprolol Succinate (Er) 100 Mg Tab.Er.24h PO 100 mg BID JOCELYN Administration Miscellaneous Information 1 each 04/05/22 11:11 Rx Info: Iv Contrast Was Given 1 Each Misc MISCELLANE 04/07/22 11:11 DAILY PRN Per Protocol Morphine Sulfate 4 mg 04/05/22 14:22 Morphine Sulfate 4 Mg/Ml Syringe IV Q4HR PRN Severe Pain (Scale 7 to 10) Naloxone HCl 0.2 mg 04/05/22 14:22 Naloxone 0.4 Mg/Ml 1 Ml Vial IV Q2M PRN Opioid Reversal Thiamine HCl 100 mg 04/06/22 09:00 04/06/22 09:22 Thiamine 100 Mg Tab PO 100 mg DAILY JOCELYN Administration Intake and Output 04/05/22 04/06/22 04/06/22 22:59 06:59 14:59 Intake Total 118 Balance 118 Intake: Oral 118 Other: Voiding Method Diaper Bedpan Diaper # Voids 1 1 Weight 52.163 kg 04/06/22 07:33 04/06/22 07:33
--- NOTE | 2022-04-06 10:28 | CDI ---
Documentation Clarification Form Date: 04/06/2022 10:25:00 AM From: Chetna BucioSilvaTAMARA goodman, CCDS Admit Date: 04/05/2022 02:23:00 PM Patient Name: Meredith Massey Visit Number: [id number] Discharge Date: ATTENTION: The Clinical Documentation Specialists (CDI) and [facility] Coding Staff appreciate your assistance in clarifying documentation. Please respond to the clarification below the line at the bottom and electronically sign. The CDI & [facility] Coding staff will review the response and follow-up if needed. Please note: Queries are made part of the Legal Health Record. If you have any questions, please contact the author of this message via ITS. Dr. Loy Polo: The patient presented with the following clinical indicators. Additional clarification regarding the etiology/cause of the clinical indicators is requested. Sepsis is documented in the 04/05 ED Note: Due to the lactic acidosis, tachycardia, as well as urinalysis findings, there is concern for possible sepsis. She'll be continued to be treated for sepsis due to the lactic acidosis, initial tachycardia, as well as initial hypoxia. Per the H/P the patient is admitted with Possible Fall and Right Pneumothorax and Acute UTI. History/risk factors per the 04/05 H/P: Hypertension, DM II, Gait Dysfunction, Smoker. Clinical Indicators: Presented to the ED on 04/05 with SOB after a fall and being found down at home in her bathroom after several days. Unknown downtime. Appeared dehydrated, found hypoxic at the scene on room air, improved w/NRB, VSS otherwise within normal. Patient complained of right posterior rib pain. Was confused. Admit with Spontaneous Pneumothorax, Sepsis, UTI, Dehydration, Lactic Acidosis. 04/05 VS: T 97.8, P 116, R 20 (sob), BP 141/83, PO 80 on 15% nrb, BMI: 19.1 04/05 LAB: WBC 15.1, Hct 46.3, Neutrophils 12.7; PT 12.3, INR 1.2; BUN 27, Glucose 206, Lactic Acid 4.4, 4.0, 2.5, 2/6; Troponin 0.056, 0.053, 0.046. 04/05 Blood Gas ABG: pH 7.26, pCO2 72, pO2 58, HCO3 32, Total CO2 35, O2 Sat 87.1 04/05 Blood Gas VBG: pH 7.15, pCO2 58, HCO3 20 04/05 UA: Turbid, 2+ protein, Mod blood, Lg Esterase, RBC 14, WBC 56. 04/05 RAD: CXR: COPD w/approximate 30-40% right side pneumothorax. Component of tension pneumothorax not excluded. Rib deformities along the lateral right rib cage estimated at the right sixth, seventh & eighth ribs suspicious for fracture. 04/05 Repeat CXR: Interval placement of right thoracotomy tube, reduction of prior pneumothorax without evidence of persistent pneumothorax. Treatment 04/05: Admit to Telemetry, Chest tube placement in ED, Incentive spirometry, Blood cultures, Urine culture, O2: nrb, IV Na Chl 1,000 mls @ 999 mls/hr q1H x2, IV Ketamine 60 mg x1, IV Na Chl 1,000 mls @ 100 mls/hr q10H, IV Vancomycin 250 mls @ 125 mls/hr x1, IV Cefepime 100 mls @ 25 mls/hr q8H, IV Toradol 15 mg q6H, IV Morphine 4 mg q4H/prn, Heparin 5,000 units sq q8H, INH Duoneb 3 ml TID/prn. In your professional opinion, please clarify if these findings signify one of the following conditions: [ ] Sepsis POA [ ] Sepsis, Not POA [ ] Sepsis ruled out [ ] Severe Sepsis with organ failure [ ] Other, please specify: [ ] Unable to determine Unable to determine (Template Last Reviewed: August 2020) MTDD
--- NOTE | 2022-04-06 10:40 | CA ---
Transthoracic Echo Report Name: Meredith Massey Age: 72 Gender: F : 1950 Exam Date: 04/06/2022 09:34 Exam Location: [place] [facility] Ht (in): 65 Wt (lb): 115 Ordering Physician: Azalia Knowles Attending/Referring Phys: [id number], [employer] Consultant Angela Crain, NEETA Procedure CPT: Indications: LV function, abnormal troponins Cardiac Hx: Technical Quality: Good Contrast 1: Total Dose (mL): Contrast 2: Total Dose (mL): MEASUREMENTS (Male / Female) Normal Values 2D ECHO LV Diastolic Diameter PLAX 3.5 cm 4.2 - 5.9 / 3.9 - 5.3 cm LV Systolic Diameter PLAX 2.6 cm IVS Diastolic Thickness 0.9 cm 0.6 - 1.0 / 0.6 - 0.9 cm LVPW Diastolic Thickness 0.9 cm 0.6 - 1.0 / 0.6 - 0.9 cm LV Relative Wall Thickness 0.5 RV Internal Dim ED PLAX 2.2 cm LA Systolic Diameter LX 2.5 cm 3.0 - 4.0 / 2.7 - 3.8 cm M-MODE Aortic Root Diameter MM 3.0 cm MV E Point Septal Separation 0.6 cm AV Cusp Separation MM 1.7 cm DOPPLER AV Peak Velocity 155.1 cm/s AV Peak Gradient 9.6 mmHg MV Area PHT 3.3 cm??? Mitral E Point Velocity 96.6 cm/s Mitral A Point Velocity 69.7 cm/s Mitral E to A Ratio 1.4 MV Deceleration Time 232.9 ms MV E' Velocity 7.8 cm/s Mitral E to MV E' Ratio 12.3 TR Peak Velocity 333.4 cm/s TR Peak Gradient 44.5 mmHg Right Ventricular Systolic Press 48.3 mmHg FINDINGS Left Ventricle Left ventricular ejection fraction is estimated at 55-60 %. Left ventricular cavity size normal. Left ventricular wall thickness normal. Right Ventricle Normal right ventricular size and function. Moderate pulmonary hypertension. Right Atrium Normal right atrial size. Left Atrium Normal left atrial size. No evidence for an atrial septal defect. Mitral Valve Mitral valve thickened. Mild mitral annular calcification. Trace mitral regurgitation. Aortic Valve Trileaflet aortic valve. No aortic valve stenosis or regurgitation. Tricuspid Valve Mild to moderate tricuspid regurgitation.structurally normal tricuspid valve. Pulmonic Valve Pulmonic valve not well visualized. Pericardium Normal pericardium. No pericardial effusion. Aorta Normal size aortic root and proximal ascending aorta. CONCLUSIONS 1. Normal size and systolic function 2. Mild to moderate tricuspid regurgitation with moderate pulmonary hypertension 3. Trace mitral regurgitation Previewed by: Dr. Esme Allison MD (Electronically Signed) Final Date: 06 April 2022 10:39
[2022-04-06 11:57] LABS: Glucose,Whole Blood 115 mg/dL (70-110)
--- NOTE | 2022-04-06 12:51 | P.CNPUL ---
History of Present Illness Consult date: 04/06/22 Requesting physician: Loy Polo Reason for consult: dyspnea, cough, COPD, hypoxemia, pneumothorax, abnormal CXR/CT Chief complaint: Right-sided pneumothorax. History of present illness: Pulmonary consult dated 04/06/2022. 72-year-old female seen and evaluated in the emergency department, on April 05. The patient apparently presented to the emergency department, with complaints of shortness of breath. She apparently was found down at home, in the bathroom, and was brought into the emergency room by EMS. She states that she was not down at home for a long period of time, but did hit her right chest against the bathtub. She was given oxygen in route, and was evaluated in the ER, and was found to have a right-sided pneumothorax. She had right-sided chest pain, laterally and posteriorly. A Thora vent was placed by the ER physician. We are asked to see the patient in consultation. She was also seen by cardiothoracic surgery. Currently, the patient is on 2 L of oxygen. She's getting saline at 75 mL an hour. Her primary care provider is Dr. Bailey. The patient is a Revivio smoker, has smoked for many years she likely has some underlying COPD. Other medical history includes diabetes, and hypertension. She also has a history of anxiety/depression. White count 15.6, hemoglobin 11, hematocrit 35.8, and platelet count 219,000. Sodium 140, potassium 3.8, chlorides 106, CO2 32, BUN 18, creatinine 0.73. Albumin is 2.6. Urine is suspicious for a urinary tract action. Troponin was 0.046 and N-terminal proBNP was 3150. Initial chest x-ray shows a 30-40% right-sided pneumothorax, and acute rib fractures, on the right, #6, #7, and #8. Review of Systems REVIEW OF SYSTEMS: CONSTITUTIONAL: [Negative.] NEUROLOGIC: Possible syncope. HEENT: [ Negative.] CARDIAC: [Negative.] PULMONARY: Shortness of breath, and right chest discomfort. GI: [Negative.] : [Negative.] RHEUMATOLOGIC: [ Negative.] IMMUNOLOGIC: [ Negative.] ENDOCRINE: [Negative. ] DERMATOLOGIC: [Negative.] Past Medical History Past Medical History: Hypertension Additional Past Medical History / Comment(s): pt states she does not have a history of diabetes History of Any Multi-Drug Resistant Organisms: None Reported Past Surgical History: Section Additional Past Surgical History / Comment(s): vain stripping left leg Past Psychological History: Anxiety, Depression Smoking Status: Current every day smoker Past Alcohol Use History: Occasional Additional Past Alcohol Use History / Comment(s): pt denies any alcohol use at this time, states she is an occasional drinker for special events Past Drug Use History: None Reported - Past Family History Mother Family Medical History: No Reported History Additional Family Medical History / Comment(s): at 80 years old of old age Father Family Medical History: No Reported History Additional Family Medical History / Comment(s): at 85 years old of old age Medications and Allergies Home Medications Medication Instructions Recorded Confirmed Type ALPRAZolam [Xanax] 1 mg PO TID PRN 10/15/20 04/05/22 History Citalopram Hydrobromide 20 mg PO DAILY 10/15/20 04/05/22 History [Citalopram HBr] Cyanocobalamin (Vitamin B-12) 1,000 mcg PO DAILY 10/15/20 04/05/22 History [Vitamin B-12] Losartan Potassium [Cozaar] 50 mg PO BID 10/15/20 04/05/22 History Metoprolol Succinate (ER) [Toprol 100 mg PO BID 10/15/20 04/05/22 History Xl] Vit C/E/Zn/Coppr/Lutein/Zeaxan 1 cap PO BID 10/15/20 04/05/22 History [Preservision Areds 2 Softgel] diphenhydrAMINE [Benadryl] 25 mg PO QID PRN 10/15/20 04/05/22 History Allergies Allergy/AdvReac Type Severity Reaction Status Date / Time No Known Allergies Allergy Verified 04/05/22 14:02 Physical Exam Osteopathic Statement: *. No significant issues noted on an osteopathic structural exam other than those noted in the History and Physical/Consult. Vitals: Vital Signs Temp Pulse Pulse Resp BP BP Pulse Ox 04/06/22 12:00 98.0 F 50 L 16 109/57 98 04/06/22 11:19 76 04/06/22 11:05 76 04/06/22 08:22 82 04/06/22 08:08 82 04/06/22 08:00 70 18 04/06/22 04:00 99.8 F H 74 22 105/62 95 04/06/22 00:20 100 F H 72 20 105/65 98 04/05/22 20:30 77 04/05/22 20:19 80 94 L 04/05/22 20:15 98.9 F 84 22 127/68 99 04/05/22 18:00 79 18 135/88 95 04/05/22 15:30 70 18 162/84 98 04/05/22 14:30 98 04/05/22 13:00 67 16 117/65 100 Intake and Output 04/05/22 04/06/22 04/06/22 22:59 06:59 14:59 Intake Total 118 Balance 118 Intake: Oral 118 Other: Voiding Method Diaper Bedpan Bedpan Diaper Diaper # Voids 1 1 Weight 52.163 kg No acute distress, oriented 3. Awake and alert, currently on 2 L of oxygen. No conversational dyspnea, or use of accessory muscles. HEENT examination is grossly unremarkable. Neck supple. Full range of motion. No adenopathy thyromegaly or neck vein distention. Cardiovascular examination reveals regular rhythm rate. S1-S2 normal. No S3 or S4. No discernible murmur noted. Heart rate 76 bpm. A right-sided Thora-vent is noted. Lungs reveal scattered bilateral rhonchi. No wheezes or crackles. Breath so unds are equal bilaterally. Saturations are 98%. Abdomen soft bowel sounds are heard. No masses or tenderness. Extremities are intact. No cyanosis clubbing or edema. Skin is without rash or lesion. Neurologic examination is brief but nonfocal. Results - Laboratory Findings CBC and BMP: 04/06/22 07:33 04/06/22 07:33 ABG ABG pH 7.26 (7.35-7.45) L 04/05/22 14:57 ABG pCO2 72 mmHg (35-45) H* 04/05/22 14:57 ABG pO2 58 mmHg (83-108) L* 04/05/22 14:57 ABG O2 Saturation 87.1 % (94-97) L 04/05/22 14:57 PT/INR, D-dimer PT 12.3 sec (9.0-12.0) H 04/05/22 10:47 INR 1.2 (<1.2) H 04/05/22 10:47 Abnormal lab findings: Abnormal Labs 04/05/22 04/05/22 04/05/22 10:43 10:47 10:47 WBC 15.1 H RBC Hgb Hct 46.3 H MCHC 30.5 L Neutrophils # 12.7 H PT 12.3 H INR 1.2 H ABG pH ABG pCO2 ABG pO2 ABG HCO3 ABG Total CO2 ABG O2 Saturation VBG pH VBG pCO2 VBG HCO3 Carbon Dioxide BUN Glucose POC Glucose (mg/dL) 223 H Plasma Lactic Acid Zion Calcium Troponin I Total Protein Albumin Urine Appearance Urine Protein Urine Blood Ur Leukocyte Esterase Urine RBC Urine WBC Ur Squamous Epith Cells Amorphous Sediment Urine Bacteria Urine Mucus 04/05/22 04/05/22 04/05/22 10:47 10:57 10:57 WBC RBC Hgb Hct MCHC Neutrophils # PT INR ABG pH ABG pCO2 ABG pO2 ABG HCO3 ABG Total CO2 ABG O2 Saturation VBG pH VBG pCO2 VBG HCO3 Carbon Dioxide BUN 27 H Glucose 206 H POC Glucose (mg/dL) Plasma Lactic Acid Zion 4.4 H* Calcium Troponin I 0.056 H* Total Protein Albumin Urine Appearance Urine Protein Urine Blood Ur Leukocyte Esterase Urine RBC Urine WBC Ur Squamous Epith Cells Amorphous Sediment Urine Bacteria Urine Mucus 04/05/22 04/05/22 04/05/22 11:00 14:06 14:20 WBC RBC Hgb Hct MCHC Neutrophils # PT INR ABG pH ABG pCO2 ABG pO2 ABG HCO3 ABG Total CO2 ABG O2 Saturation VBG pH 7.15 L* VBG pCO2 58 H VBG HCO3 20 L Carbon Dioxide BUN Glucose POC Glucose (mg/dL) Plasma Lactic Acid Zion 4.0 H* Calcium Troponin I Total Protein Albumin Urine Appearance Turbid H Urine Protein 2+ H Urine Blood Moderate H Ur Leukocyte Esterase Large H Urine RBC 14 H Urine WBC 56 H Ur Squamous Epith Cells 11 H Amorphous Sediment Occasional H Urine Bacteria Moderate H Urine Mucus Occasional H 04/05/22 04/05/22 04/05/22 14:57 14:58 17:42 WBC RBC Hgb Hct MCHC Neutrophils # PT INR ABG pH 7.26 L ABG pCO2 72 H* ABG pO2 58 L* ABG HCO3 32 H ABG Total CO2 35 H ABG O2 Saturation 87.1 L VBG pH VBG pCO2 VBG HCO3 Carbon Dioxide BUN Glucose POC Glucose (mg/dL) Plasma Lactic Acid [place] Calcium Troponin I 0.053 H* 0.046 H* Total Protein Albumin Urine Appearance Urine Protein Urine Blood Ur Leukocyte Esterase Urine RBC Urine WBC Ur Squamous Epith Cells Amorphous Sediment Urine Bacteria Urine Mucus 04/05/22 04/05/22 04/05/22 17:42 20:29 21:24 WBC RBC Hgb Hct MCHC Neutrophils # PT INR ABG pH ABG pCO2 ABG pO2 ABG HCO3 ABG Total CO2 ABG O2 Saturation VBG pH VBG pCO2 VBG HCO3 Carbon Dioxide BUN Glucose POC Glucose (mg/dL) 137 H Plasma Lactic Acid Zion 2.5 H* 2.6 H* Calcium Troponin I Total Protein Albumin Urine Appearance Urine Protein Urine Blood Ur Leukocyte Esterase Urine RBC Urine WBC Ur Squamous Epith Cells Amorphous Sediment Urine Bacteria Urine Mucus 04/06/22 04/06/22 04/06/22 06:08 07:33 07:33 WBC 15.6 H RBC 3.72 L Hgb 11.0 L D Hct MCHC 30.8 L Neutrophils # 13.7 H PT INR ABG pH ABG pCO2 ABG pO2 ABG HCO3 ABG Total CO2 ABG O2 Saturation VBG pH VBG pCO2 VBG HCO3 Carbon Dioxide 32 H BUN 18 H Glucose 105 H POC Glucose (mg/dL) 130 H Plasma Lactic Acid Zion Calcium 7.6 L Troponin I Total Protein 5.0 L Albumin 2.6 L Urine Appearance Urine Protein Urine Blood Ur Leukocyte Esterase Urine RBC Urine WBC Ur Squamous Epith Cells Amorphous Sediment Urine Bacteria Urine Mucus 04/06/22 11:55 WBC RBC Hgb Hct MCHC Neutrophils # PT INR ABG pH ABG pCO2 ABG pO2 ABG HCO3 ABG Total CO2 ABG O2 Saturation VBG pH VBG pCO2 VBG HCO3 Carbon Dioxide BUN Glucose POC Glucose (mg/dL) 115 H Plasma Lactic Acid Zion Calcium Troponin I Total Protein Albumin Urine Appearance Urine Protein Urine Blood Ur Leukocyte Esterase Urine RBC Urine WBC Ur Squamous Epith Cells Amorphous Sediment Urine Bacteria Urine Mucus - Diagnostic Findings Chest x-ray: image reviewed CT scan - chest: image reviewed Assessment and Plan Assessment: Status post fall, with acute rib fractures on the right, and a right-sided pneumothorax, status post Thora vent placement. Ongoing tobacco use and nicotine addiction, and likely underlying COPD. History of hypertension. History of anxiety/depression. History of diabetes mellitus. Plan: Plan dated 04/06/2022. The patient appears to be relatively comfortable. I do not see a leak in the Pleur-evac, when the patient takes a deep breath, and/or coughs. Labs, x-rays, medications are reviewed. The patient does continue to smoke. The antibiotics can probably be de-escalated. The patient likely has some underlying COPD. P rognosis is guarded. Time with Patient: Greater than 30
[2022-04-06] MEDS ORDERED: HEPARIN SODIUM,PORCINE 5,000 UNIT/ML 1 ML VIAL IV ONE (16:15)
[2022-04-06] MEDS: BUDESONIDE 1 MG/2 ML NEBU INHALATION SCH (19:34)
[2022-04-07 02:48] LABS: Glucose,Whole Blood 196 mg/dL (70-110)
--- NOTE | 2022-04-07 04:18 | PN ---
PROGRESS NOTE DATE OF SERVICE: 04/06/2022 SUBJECTIVE: This is a 72-year-old woman with a past medical history of multiple medical problems admitted with fall and right pneumothorax. The patient had ThoraVent and chest tube drainage at this time. The patient also had acute UTI when present on admission. The patient is much more alert at this time. Multiple consults following the patient closely including Cardiothoracic Surgery. PAST MEDICAL HISTORY: Reviewed. REVIEW OF SYSTEMS: Negative except mentioned earlier. CURRENT MEDICATIONS: Reviewed include DuoNeb. The rest of medication and doses are reviewed. PHYSICAL EXAMINATION: VITAL SIGNS: Pulse is 82, blood pressure 105/62, respirations 22. CHEST: A few scattered rhonchi and crackles. ABDOMEN: Soft. NERVOUS SYSTEM: No focal deficits. LABS: WBC 15.6. Other labs are noted. ASSESSMENT: 1. Fall and right pneumothorax, traumatic. 2. Acute urinary tract infection, present on admission. 3. Troponin 0.056 indeterminate. 4. Diabetes mellitus, type 2. 5. Hypertension. 6. Gait dysfunction. 7. Multiple medical issues. RECOMMENDATIONS AND DISCUSSION: Recommend to continue current management and symptomatic treatment. Pain management. Continue the antibiotics. Continue the bronchodilators, incentive spirometry. Follow closely with multiple consultants. Today's x-ray was reviewed personally and closely follow with Cardiothoracic Surgery. Prognosis guarded. Further recommendations to follow. MMODL / IJN: [id number] /
--- NOTE | 2022-04-07 07:38 | XR ---
EXAMINATION TYPE: XR chest 1V portable DATE OF EXAM: 04/07/2022 COMPARISON: 04/06/2022 INDICATION: Pneumothorax, status post fall TECHNIQUE: Single frontal view of the chest is obtained. FINDINGS: The heart size is normal. The pulmonary vasculature is normal. Increased lung markings are at the right lung base. There is silhouetting left diaphragm. No pneumoth orax is evident. Catheters present on the right. IMPRESSION: 1. Developing bibasilar infiltrates. Correlate for atelectasis and pneumonia. Small right pleural eff usion may be present. 2. No pneumothorax. Catheter is in position.
[2022-04-07 08:09] LABS: African American GFR (CKD) >90 (>60 ml/min/1.73 sqM); Anion Gap 3 mmol/L; Blood Urea Nitrogen 12 mg/dL (7-17); Calcium 7.8 mg/dL (8.4-10.2); Carbon Dioxide 31 mmol/L (22-30); Chloride 104 mmol/L (98-107); Glucose 87 mg/dL (74-99); Non-African American GFR(CKD) 89 (>60 ml/min/1.73 sqM); Potassium 3.5 mmol/L (3.5-5.1); Sodium 138 mmol/L (137-145)
--- NOTE | 2022-04-07 08:34 | P.PN ---
Subjective Progress Note Date: 04/07/22 Principal diagnosis: Acute spontaneous right-sided pneumothorax, fall from standing, right-sided rib pain, mildly elevated troponin. History of hypertension, depression, current t obacco dependence, occasional EtOH use The patient was seen and examined laying in bed on the cardiac stepdown unit in no acute distress. Right sided thoravent remains to waterseal, no air leak pres ent. Patient did fall again last night without apparent injury. Currently denies any pain and has taken no pain medications in the last 24 hours. Remains on 3 L nasal cannula. No other new concerns. Objective - Vital Signs Vital signs: Vital Signs Temp 98.8 F 04/07/22 02:53 Pulse 65 04/07/22 02:53 Resp 20 04/07/22 02:53 BP 174/78 04/07/22 02:53 Pulse Ox 93 L 04/07/22 02:53 FiO2 100 04/05/22 11:08 Intake & Output 04/06/22 04/07/22 04/07/22 18:59 06:59 18:59 Intake Total 118 Output Total 145 Balance 118 -145 Weight 35 kg Intake: Oral 118 Output: Chest Tube Drainage 45 Thora-Vent Right Anterior 45 Chest Urine 100 Other: Voiding Method Bedpan Diaper Diaper # Voids 2 - Exam CONSTITUTIONAL: Appears comfortable, cooperative, no acute distress RESPIRATORY: Lungs sounds diminished bilaterally. Respirations even, nonlabored. Currently on 3 L nasal cannula with oxygen saturation 93%. CARDIOVASCULAR: S1, S2 present. Regular rate and rhythm, sinus rhythm on tel emetry. Palpable peripheral pulses bilaterally. No edema present. GASTROINTESTINAL: Abdomen soft, nontender, nondistended. Active bowel sounds present 4 quadrants. Tolerating diet. GENITOURINARY: Continues to void, incontinent INTEGUMENTARY: Skin is warm and dry with evidence of good perfusion NEUROLOGIC: Cranial nerves II through XII intact MUSKULOSKELETAL: Able to move all extremities, strength equal bilaterally PSYCHIATRIC: Alert and oriented to person place and time, appropriate affect INVASIVE LINES AND TUBES: Right thoravent present to waterseal, no air leak present, 45 mL serous drainage in the last 24 hours - Allied health notes Allied health notes reviewed: nursing - Labs CBC & Chem 7: 04/06/22 07:33 04/07/22 07:35 Labs: Abnormal Lab Results - Last 24 Hours (Table) 04/06/22 04/06/22 04/07/22 Range/Units 07:33 11:55 02:42 Carbon Dioxide (22-30) mmol/L POC Glucose (mg/dL) 115 H 196 H (70-110) mg/dL Calcium (8.4-10.2) mg/dL Procalcitonin 0.69 H (0.02-0.09) ng/mL 04/07/22 Range/Units 07:35 Carbon Dioxide 31 H (22-30) mmol/L POC Glucose (mg/dL) (70-110) mg/dL Calcium 7.8 L (8.4-10.2) mg/dL Procalcitonin (0.02-0.09) ng/mL Microbiology - Last 24 Hours (Table) 04/05/22 11:00 Urine Culture - Final Urine,Voided 04/05/22 10:45 Blood Culture - Preliminary Blood No Growth after 24 hours 04/05/22 10:59 Blood Culture - Preliminary Blood No Growth after 24 hours - Imaging and Cardiology Chest x-ray: report reviewed, image reviewed Assessment and Plan Assessment: 1. Acute spontaneous right-sided pneumothorax, first occurrence, resolved after placement of thoravent 2. Fall from standing at home and again last night 3. Right-sided rib pain secondary to above 4. Apparent UTI on urinalysis, urine culture negative 5. Mildly elevated troponin 6. History of hypertension 7. History of depression 8. Current tobacco dependence 9. Occasional EtOH use Plan: 1. Will place occlusive cap to thoravent for the next 24 hours. If no change in x-ray tomorrow will likely discontinue thoravent 2. Wean O2 as tolerated. Encourage incentive spirometry use 10 times every hour while awake 3. Will monitor daily x-rays 4. Recommend discontinuing narcotic pain medication, patient is not taking any way 5. Smoking cessation counseling and education were offered, patient was counseled that she needs to quit smoking 6. Increase activity as tolerated with supervision. PT/OT consulted 7. Medical management of other comorbidities per primary care, pulmonology, cardiology
[2022-04-07] MEDS: IPRATROPIUM-ALBUTEROL 3 ML NEB INHALATION SCH ×3 (09:11→20:29)
[2022-04-07] MEDS: BUDESONIDE 1 MG/2 ML NEBU INHALATION SCH ×2 (09:11→20:27)
[2022-04-07] MEDS: HEPARIN SODIUM,PORCINE/PF 5,000 UNIT/0.5 ML SYRINGE SQ SCH ×2 (09:27→18:06)
[2022-04-07] MEDS: THIAMINE 100 MG TAB PO SCH (09:28)
[2022-04-07] MEDS: LOSARTAN 50 MG TAB PO SCH ×2 (09:28→19:59)
[2022-04-07] MEDS: CITALOPRAM HYDROBROMIDE 20 MG TAB PO SCH (09:28)
[2022-04-07] MEDS: METOPROLOL SUCCINATE (ER) 100 MG TAB.ER.24H PO SCH (09:29)
[2022-04-07 10:18] LABS: Basophils % (A) 0 %; Eosinophils % (A) 0 %; HCT 34.7 % (34.0-46.0); HGB 10.5 gm/dL (11.4-16.0); Hypochromasia Moderate; Lymphocytes # (A) 1.2 k/uL (1.0-4.8); Lymphocytes % (A) 10 %; MCH 28.7 pg (25.0-35.0); MCHC 30.2 g/dL (31.0-37.0); MCV 95.1 fL (80.0-100.0); Mean Platelet Volume 9.1; Monocytes # (A) 0.4 k/uL (0-1.0); Monocytes % (A) 3 %; Neutrophils % (A) 85 %; Platelet Count 222 k/uL (150-450); RBC 3.65 m/uL (3.80-5.40); RDW 13.3 % (11.5-15.5); WBC 11.8 k/uL (3.8-10.6)
--- NOTE | 2022-04-07 11:25 | P.PN ---
Subjective Progress Note Date: 04/07/22 HISTORY OF PRESENT ILLNESS: This is a 72-year-old female with a past medical history significant for hypertension, anxiety, and nicotine dependence. Patient does not follow with a endbander. We have been asked to see the patient in consultation for abnormal troponins. Patient examined at the bedside. Patient presented to the hospital after sustaining a fall at home with unknown downtime. The patient states that she used the bathroom and afterwards she tripped and fell on her right side. The patient was found to have a right-sided pneumothorax and a right-sided Thoravent was placed. The patient reports some soreness at the insertion site. She currently denies shortness of breath. She denies chest pain. Denies dizziness or lightheadedness. Vital signs are stable. She denies any previous history of coronary artery disease. * EKG reveals sinus mechanism with nonspecific ST-T wave changes * Initial chest x-ray revealed 30-40% right-sided pneumothorax. * Laboratory data: WBC 15.6. Hemoglobin 11.0. Platelet count 219. Sodium 140. Potassium 3.8. BUN 18. Creatinine 0.73. Troponin 0.056. 0.053. 0.046. * Current home cardiac medications include losartan 50 mg twice a day and metoprolol succinate 100 mg twice a day * No previous echocardiogram or cardiac catheterization records available for review 04/07/2022 Patient examined this morning at the bedside. Patient denies chest pain or pressure. She denies shortness of breath. Vital signs are stable. Slightly bradycardic this morning. Echocardiogram completed revealing ejection fraction 55-60%. PHYSICAL EXAM: VITAL SIGNS: Reviewed. GENERAL: Well-developed in no acute distress. HEENT: Head is normocephalic. Pupils are equal, round. Sclerae anicteric. Mucous membranes of the mouth are moist. Neck supple. No JVD or thyromegaly LUNGS: Respirations even and unlabored. Lungs diminished with expiratory wheezing and rhonchi noted HEART: Regular rate and rhythm. S1 and S2 heard. ABDOMEN: Soft. Nondistended. Nontender. EXTREMITIES: Normal range of motion. No clubbing or cyanosis. Peripheral pulses intact. No lower extremity edema NEUROLOGIC: Awake and alert. Oriented x 3. ASSESSMENT: Status post fall with unknown downtime Spontaneous right-sided pneumothorax Abnormal troponins, not suggestive of primary myocardial injury Suspected COPD Hypertension Anxiety Nicotine dependence PLAN: Continue current cardiac medications Decrease metoprolol to 50mg BID Smoking cessation recommended Patient is currently stable from a cardiac standpoint with no further inpatient recommendations We will sign off. Please reconsult if needed. Nurse practitioner note has been reviewed by physician. Signing provider agrees with the documented findings, assessment, and plan of care. Objective - Vital Signs Vital signs: Vital Signs Temp 98.1 F 04/07/22 09:08 Pulse 60 04/07/22 09:24 Resp 20 04/07/22 09:09 BP 143/83 04/07/22 09:08 Pulse Ox 93 L 04/07/22 09:08 FiO2 100 04/05/22 11:08 Intake & Output 04/06/22 04/07/22 04/07/22 18:59 06:59 18:59 Intake Total 118 0 Output Total 145 Balance 118 -145 0 Weight 35 kg Intake: Oral 118 0 Output: Chest Tube Drainage 45 Thora-Vent Right Anterior 45 Chest Urine 100 Other: Voiding Method Bedpan Diaper Diaper Diaper # Voids 2 1 - Labs CBC & Chem 7: 04/07/22 07:35 04/07/22 07:35 Labs: Abnormal Lab Results - Last 24 Hours (Table) 04/06/22 04/06/22 04/07/22 Range/Units 07:33 11:55 02:42 WBC (3.8-10.6) k/uL RBC (3.80-5.40) m/uL Hgb (11.4-16.0) gm/dL MCHC (31.0-37.0) g/dL Neutrophils # (1.3-7.7) k/uL Carbon Dioxide (22-30) mmol/L POC Glucose (mg/dL) 115 H 196 H (70-110) mg/dL Calcium (8.4-10.2) mg/dL Procalcitonin 0.69 H (0.02-0.09) ng/mL 04/07/22 04/07/22 Range/Units 07:35 07:35 WBC 11.8 H (3.8-10.6) k/uL RBC 3.65 L (3.80-5.40) m/uL Hgb 10.5 L (11.4-16.0) gm/dL MCHC 30.2 L (31.0-37.0) g/dL Neutrophils # 10.0 H (1.3-7.7) k/uL Carbon Dioxide 31 H (22-30) mmol/L POC Glucose (mg/dL) (70-110) mg/dL Calcium 7.8 L (8.4-10.2) mg/dL Procalcitonin (0.02-0.09) ng/mL Microbiology - Last 24 Hours (Table) 04/05/22 11:00 Urine Culture - Final Urine,Voided 04/05/22 10:45 Blood Culture - Preliminary Blood No Growth after 24 hours 04/05/22 10:59 Blood Culture - Preliminary Blood No Growth after 24 hours
--- NOTE | 2022-04-07 12:42 | P.PN ---
Subjective Progress Note Date: 04/07/22 Principal diagnosis: Right pneumothorax. Pulmonary consult dated 04/06/2022. 72-year-old female seen and evaluated in the emergency department, on April 05. The patient apparently presented to the emergency department, with complaints of shortness of breath. She apparently was found down at home, in the bathroom, and was brought into the emergency room by EMS. She states that she was not down at home for a long period of time, but did hit her right chest against the bathtub. She was given oxygen in route, and was evaluated in the ER, and was found to have a right-sided pneumothorax. She had right-sided chest pain, laterally and posteriorly. A Thora vent was placed by the ER physician. We are asked to see the patient in consultation. She was also seen by cardiothoracic surgery. Currently, the patient is on 2 L of oxygen. She's getting saline at 75 mL an hour. Her primary care provider is Dr. Bailey. The patient is a current smoker, has smoked for many years she likely has some underlying COPD. Other medical history includes diabetes, and hypertension. She also has a history of anxiety/depression. White count 15.6, hemoglobin 11, hematocrit 35.8, and platelet count 219,000. Sodium 140, potassium 3.8, chlorides 106, CO2 32, BUN 18, creatinine 0.73. Albumin is 2.6. Urine is suspicious for a urinary tract action. Troponin was 0.046 and N-terminal proBNP was 3150. Initial chest x-ray shows a 30-40% right-sided pneumothorax, and acute rib fractures, on the right, #6, #7, and #8. Progress note dated 04/07/2022. 72-year-old female seen yesterday in consultation. She is seen again today in room 372. Currently, she is on a couple liters of oxygen. She has a right- sided Thora vent. She's been seen by cardiothoracic surgery today, and a Thora vent was taken off of suction. The plan is to get a chest x-ray in the morning, and of the lungs expanded, to take the device out. She's not receiving any IV fluids. The patient has a white count of 11.8, hemoglobin 10.5, hematocrit 34.7, and platelet count 222,000. Sodium 138, potassium 3.5, chlorides 104, CO2 31, BUN 12, creatinine 0.63. Chest x-ray shows bibasilar infiltrates or at electasis. There is a small right-sided pleural effusion. No pneumothorax is seen. Blood and urine cultures are thus far negative. The patient's on cefepime and vancomycin, although, I'm not sure why. Objective - Vital Signs Vital signs: Vital Signs Temp 98.6 F 04/07/22 11:22 Pulse 60 04/07/22 12:13 Resp 20 04/07/22 11:22 BP 140/62 04/07/22 11:22 Pulse Ox 94 L 04/07/22 11:22 FiO2 100 04/05/22 11:08 Intake & Output 04/06/22 04/07/22 04/07/22 18:59 06:59 18:59 Intake Total 118 10 Output Total 145 Balance 118 -145 10 Weight 35 kg Intake: IV 10 Invasive Line 2 10 Oral 118 0 Output: Chest Tube Drainage 45 Thora-Vent Right Anterior 45 Chest Urine 100 Other: Voiding Method Bedpan Diaper Diaper Diaper # Voids 2 1 - Exam No acute distress, oriented 3. Currently on 2 L nasal cannula. HEENT examination is grossly unremarkable. Neck supple. Full range of motion. No adenopathy thyromegaly or neck vein distention. Cardiovascular examination reveals regular rhythm rate. S1-S2 normal. No S3 or S4. No discernible murmur noted. Heart rate 60 bpm. Lungs reveal mostly clear breath sounds. Scattered rhonchi are noted. No wheezes or crackles. Breath sounds are equal bilaterally. Saturations are 94%. Abdomen soft bowel sounds are heard. No masses or tenderness. Extremities are intact. No cyanosis clubbing or edema. Skin is without rash or lesion. Neurologic examination is brief but nonfocal. - Labs CBC & Chem 7: 04/07/22 07:35 04/07/22 07:35 Labs: Abnormal Lab Results - Last 24 Hours (Table) 04/06/22 04/07/22 04/07/22 Range/Units 07:33 02:42 07:35 WBC (3.8-10.6) k/uL RBC (3.80-5.40) m/uL Hgb (11.4-16.0) gm/dL MCHC (31.0-37.0) g/dL Neutrophils # (1.3-7.7) k/uL Carbon Dioxide 31 H (22-30) mmol/L POC Glucose (mg/dL) 196 H (70-110) mg/dL Calcium 7.8 L (8.4-10.2) mg/dL Procalcitonin 0.69 H (0.02-0.09) ng/mL 04/07/22 Range/Units 07:35 WBC 11.8 H (3.8-10.6) k/uL RBC 3.65 L (3.80-5.40) m/uL Hgb 10.5 L (11.4-16.0) gm/dL MCHC 30.2 L (31.0-37.0) g/dL Neutrophils # 10.0 H (1.3-7.7) k/uL Carbon Dioxide (22-30) mmol/L POC Glucose (mg/dL) (70-110) mg/dL Calcium (8.4-10.2) mg/dL Procalcitonin (0.02-0.09) ng/mL Microbiology - Last 24 Hours (Table) 04/05/22 11:00 Urine Culture - Final Urine,Voided 04/05/22 10:45 Blood Culture - Preliminary Blood No Growth after 24 hours 04/05/22 10:59 Blood Culture - Preliminary Blood No Growth after 24 hours Assessment and Plan Assessment: Status post fall, with acute rib fractures on the right, and a right-sided pneumothorax, status post Thora vent placement. Ongoing tobacco use and nicotine addiction, and likely underlying COPD. History of hypertension. History of anxiety/depression. History of diabetes mellitus. Plan: Plan dated 04/06/2022. The patient appears to be relatively comfortable. I do not see a leak in the Pleur-evac, when the patient takes a deep breath, and/or coughs. Labs, x-rays, medications are reviewed. The patient does continue to smoke. The antibiotics can probably be de-escalated. The patient likely has some underlying COPD. Prognosis is guarded. Plan dated 04/07/2022. The patient's thought that his taken off of suction. The device will likely be removed tomorrow, if the chest x-ray is normal. We will continue to follow. Prognosis is certainly thought to be generally good. Labs, x-rays, and medications are all reviewed. Respiratory status appears stable. She is on 2 L. Saturations are in the mid 90s. Time with Patient: Less than 30
[2022-04-07] MEDS: CEFEPIME 2 GM in SODIUM CHLORIDE 0.9% 100 ML IVPB SCH ×2 (12:47→23:02)
[2022-04-07 13:48] VITALS: BMI 16.3
[2022-04-07 16:53] LABS: Glucose,Whole Blood 111 mg/dL (70-110)
[2022-04-07] MEDS: NICOTINE 21MG/24HR PATCH TRANSDERM SCH (18:06)
[2022-04-07] MEDS: SODIUM CHLORIDE 0.9% 1,000 ML IV SCH (18:58)
[2022-04-07] MEDS: METOPROLOL SUCCINATE (ER) 50 MG TAB.ER.24H PO SCH (19:59)
[2022-04-07] MEDS: ALPRAZolam 1 MG TAB PO PRN (19:59)
[2022-04-07] MEDS: VANCOMYCIN 1,000 MG in SODIUM CHLORIDE 0.9% 250 ML IVPB SCH (20:00)
[2022-04-08] MEDS: HEPARIN SODIUM,PORCINE/PF 5,000 UNIT/0.5 ML SYRINGE SQ SCH ×4 (00:30→23:27)
--- NOTE | 2022-04-08 03:06 | PN ---
PROGRESS NOTE SUBJECTIVE: This is a 72-year-old woman who was admitted with fall and right pneumothorax, also had a Thora Vent placed. No chest pain. No palpitation. PT/OT is evaluating the patient also. On exam, the patient is mildly confused. PHYSICAL EXAMINATION: VITAL SIGNS: Pulse 69, blood pressure 140/60, respirations 20. CHEST: Clear to auscultation. Breath sounds diminished on the right side. CARDIOVASCULAR: S1, S2. ABDOMEN: Soft. NERVOUS SYSTEM: Diffusely weak. LABS: Reviewed. ASSESSMENT: 1. Fall and right pneumothorax, traumatic, status post Thora Vent. 2. Acute urinary tract infection, present on admission. 3. Troponin 0.056 indeterminate. 4. Diabetes mellitus, type 2. 5. Gait dysfunction. 6. Multiple medical issues. RECOMMENDATIONS AND DISCUSSION: Recommend to continue current management and symptomatic treatment. Pain management. Monitor closely. Ensure oxygenation. DVT prophylaxis. PT, OT evaluation. The prognosis is guarded because of multiple complex medical conditions. Further recommendations to follow. Possibly ECF rehab. MMHUGH / SIDNEYN: [id number] /
[2022-04-08] MEDS: SODIUM CHLORIDE 0.9% 1,000 ML IV SCH ×2 (04:17→21:03)
--- NOTE | 2022-04-08 07:15 | XR ---
EXAMINATION TYPE: XR chest 2V DATE OF EXAM: 04/08/2022 COMPARISON: 04/07/2022 HISTORY: Chest tube, rule out pneumothorax. Follow-up study. TECHNIQUE: Frontal and lateral views of the chest are obtained. FINDINGS: There is a thoracic vent the tip of which is unchanged in the right lung apex. There is no pneumothorax. No change in the bibasilar lung infiltrates and probable small effusions. The heart size is normal. The osseous structures are intact. IMPRESSION: 1. No change in the right thoracic vent no pneumothorax. 2. No change in the bilateral lung infiltrates and small effusions.
[2022-04-08 07:19] LABS: Glucose,Whole Blood 86 mg/dL (70-110)
[2022-04-08] MEDS: BUDESONIDE 1 MG/2 ML NEBU INHALATION SCH ×2 (08:15→20:58)
[2022-04-08] MEDS: IPRATROPIUM-ALBUTEROL 3 ML NEB INHALATION SCH ×3 (08:15→20:58)
--- NOTE | 2022-04-08 08:23 | P.PN ---
Subjective Progress Note Date: 04/08/22 Principal diagnosis: Acute spontaneous right-sided pneumothorax, fall from standing, right-sided rib pain, mildly elevated troponin. History of hypertension, depression, current t obacco dependence, occasional EtOH use The patient was seen and examined laying in bed on the cardiac stepdown unit in no acute distress. Right sided thoravent remains with occlusive cap, chest x-ra y reviewed and stable, cap removed and no air leak present. Currently denies any pain. Remains on 3 L nasal cannula. No other new concerns. Objective - Vital Signs Vital signs: Vital Signs Temp 97.8 F 04/08/22 08:16 Pulse 59 L 04/08/22 08:16 Resp 20 04/08/22 08:16 BP 134/79 04/08/22 08:16 Pulse Ox 100 04/08/22 08:16 FiO2 100 04/05/22 11:08 Intake & Output 04/07/22 04/08/22 04/08/22 18:59 06:59 18:59 Intake Total 256 Balance 256 Weight 44.5 kg Intake: IV 20 Invasive Line 2 20 Oral 236 Other: Voiding Method Diaper Diaper # Voids 1 3 # Bowel Movements 1 - Exam CONSTITUTIONAL: Appears comfortable, cooperative, no acute distress RESPIRATORY: Lungs sounds diminished bilaterally. Respirations even, nonlabored. Currently on 3 L nasal cannula with oxygen saturation 95%. CARDIOVASCULAR: S1, S2 present. Regular rate and rhythm, sinus rhythm on telemetry. Palpable peripheral pulses bilaterally. No edema present. GASTROINTESTINAL: Abdomen soft, nontender, nondistended. Active bowel sounds present 4 quadrants. Tolerating diet. GENITOURINARY: Continues to void, incontinent INTEGUMENTARY: Skin is warm and dry with evidence of good perfusion NEUROLOGIC: Cranial nerves II through XII intact MUSKULOSKELETAL: Able to move all extremities, strength equal bilaterally PSYCHIATRIC: Alert and oriented to person place and time, appropriate affect INVASIVE LINES AND TUBES: Right thoravent present with occlusive cap - Allied health notes Allied health notes reviewed: nursing - Labs CBC & Chem 7: 04/07/22 07:35 04/07/22 07:35 Labs: Abnormal Lab Results - Last 24 Hours (Table) 04/07/22 04/07/22 Range/Units 07:35 16:43 WBC 11.8 H (3.8-10.6) k/uL RBC 3.65 L (3.80-5.40) m/uL Hgb 10.5 L (11.4-16.0) gm/dL MCHC 30.2 L (31.0-37.0) g/dL Neutrophils # 10.0 H (1.3-7.7) k/uL POC Glucose (mg/dL) 111 H (70-110) mg/dL Microbiology - Last 24 Hours (Table) 04/05/22 10:59 Blood Culture - Preliminary Blood No Growth after 48 hours 04/05/22 10:45 Blood Culture - Preliminary Blood No Growth after 48 hours - Imaging and Cardiology Chest x-ray: report reviewed, image reviewed Assessment and Plan Assessment: 1. Acute spontaneous right-sided pneumothorax, first occurrence, resolved after placement of thoravent 2. Fall from standing at home and again last night 3. Right-sided rib pain secondary to above 4. Apparent UTI on urinalysis, urine culture negative 5. Mildly elevated troponin 6. History of hypertension 7. History of depression 8. Current tobacco dependence 9. Occasional EtOH use Plan: 1. Thoravent removed without incident. Repeat chest x-ray 1 hour. If stable patient cleared to be discharged from cardiothoracic surgery standpoint 2. Wean O2 as tolerated. Encourage incentive spirometry use 10 times every hour while awake 3. Will monitor daily x-rays 4. Recommend discontinuing narcotic pain medication, patient is not taking any way 5. Smoking cessation counseling and education were offered, patient was counseled that she needs to quit smoking 6. Increase activity as tolerated with supervision. PT/OT consulted 7. Medical management of other comorbidities per primary care, pulmonology, cardiology 8. If repeat chest x-ray stable will sign off case. Patient does not need to follow up with cardiothoracic surgery at discharge
[2022-04-08] MEDS: METOPROLOL SUCCINATE (ER) 50 MG TAB.ER.24H PO SCH ×2 (08:31→19:51)
[2022-04-08] MEDS: LOSARTAN 50 MG TAB PO SCH ×2 (08:31→19:51)
[2022-04-08] MEDS: CITALOPRAM HYDROBROMIDE 20 MG TAB PO SCH (08:31)
[2022-04-08] MEDS: NICOTINE 21MG/24HR PATCH TRANSDERM SCH (08:32)
[2022-04-08] MEDS: THIAMINE 100 MG TAB PO SCH (08:32)
--- NOTE | 2022-04-08 09:56 | XR ---
EXAMINATION TYPE: XR chest 2V DATE OF EXAM: 04/08/2022 COMPARISON: 04/08/2022 HISTORY: Post thoracic been removal TECHNIQUE: Frontal and lateral views of the chest are obtained. FINDINGS: There has been interval removal of the right-sided thoracic vent. There is no pneumothorax. There is mild pulmonary vascular congestion. There are small bilateral pleural effusions. There is a persistent retrocardiac opacity which could represent pneumonic infiltrate or atelectasis. The heart size is normal. IMPRESSION: 1. Right thoracic vent removal without pneumothorax. 2. No change in the acute cardiopulmonary disease as described above.
[2022-04-08 10:35] LABS: African American GFR (CKD) >90 (>60 ml/min/1.73 sqM); Non-African American GFR(CKD) 86 (>60 ml/min/1.73 sqM)
[2022-04-08] MEDS: CEFEPIME 2 GM in SODIUM CHLORIDE 0.9% 100 ML IVPB SCH ×2 (11:31→23:25)
[2022-04-08] MEDS: MULTIVITAMINS, THERA 1 EACH TAB PO SCH (11:31)
[2022-04-08] MEDS: FOLIC ACID 1 MG TAB PO SCH (11:31)
--- NOTE | 2022-04-08 12:10 | P.PN ---
Subjective Progress Note Date: 04/08/22 Principal diagnosis: Right pneumothorax. Pulmonary consult dated 04/06/2022. 72-year-old female seen and evaluated in the emergency department, on April 05. The patient apparently presented to the emergency department, with complaints of shortness of breath. She apparently was found down at home, in the bathroom, and was brought into the emergency room by EMS. She states that she was not down at home for a long period of time, but did hit her right chest against the bathtub. She was given oxygen in route, and was evaluated in the ER, and was found to have a right-sided pneumothorax. She had right-sided chest pain, laterally and posteriorly. A Thora vent was placed by the ER physician. We are asked to see the patient in consultation. She was also seen by cardiothoracic surgery. Currently, the patient is on 2 L of oxygen. She's getting saline at 75 mL an hour. Her primary care provider is Dr. Bailey. The patient is a current smoker, has smoked for many years she likely has some underlying COPD. Other medical history includes diabetes, and hypertension. She also has a history of anxiety/depression. White count 15.6, hemoglobin 11, hematocrit 35.8, and platelet count 219,000. Sodium 140, potassium 3.8, chlorides 106, CO2 32, BUN 18, creatinine 0.73. Albumin is 2.6. Urine is suspicious for a urinary tract action. Troponin was 0.046 and N-terminal proBNP was 3150. Initial chest x-ray shows a 30-40% right-sided pneumothorax, and acute rib fractures, on the right, #6, #7, and #8. Progress note dated 04/07/2022. 72-year-old female seen yesterday in consultation. She is seen again today in room 372. Currently, she is on a couple liters of oxygen. She has a right- sided Thora vent. She's been seen by cardiothoracic surgery today, and a Thora vent was taken off of suction. The plan is to get a chest x-ray in the morning, and of the lungs expanded, to take the device out. She's not receiving any IV fluids. The patient has a white count of 11.8, hemoglobin 10.5, hematocrit 34.7, and platelet count 222,000. Sodium 138, potassium 3.5, chlorides 104, CO2 31, BUN 12, creatinine 0.63. Chest x-ray shows bibasilar infiltrates or at electasis. There is a small right-sided pleural effusion. No pneumothorax is seen. Blood and urine cultures are thus far negative. The patient's on cefepime and vancomycin, although, I'm not sure why. Progress note dated 04/08/2022. The patient is again seen in room 372. She remains on oxygen at 2 L. The Thora vent device was removed by cardiothoracic surgery. A follow-up chest x-ray will be done. From their perspective, if there is full expansion of the right lung, without pneumothorax, the patient could be considered for discharge. She has no new complaints today. No new laboratory data today other than a creatinine of 0.7, and a glucose of 86. The repeat chest x-ray shows no pneumothorax, after the removal of the Thora vent. Objective - Vital Signs Vital signs: Vital Signs Temp 98.3 F 04/08/22 11:30 Pulse 62 04/08/22 11:30 Resp 20 04/08/22 11:30 BP 125/80 04/08/22 11:30 Pulse Ox 99 04/08/22 11:30 FiO2 100 04/05/22 11:08 Intake & Output 04/07/22 04/08/22 04/08/22 18:59 06:59 18:59 Intake Total 256 227 Balance 256 227 Weight 44.5 kg Intake: IV 20 Invasive Line 2 20 Oral 236 227 Other: Voiding Method Diaper Diaper Diaper # Voids 1 3 # Bowel Movements 1 - Exam No acute distress, oriented 3. Currently on 3 L nasal cannula. HEENT examination is grossly unremarkable. Neck supple. Full range of motion. No adenopathy thyromegaly or neck vein distention. Cardiovascular examination reveals regular rhythm rate. S1-S2 normal. No S3 or S4. No discernible murmur noted. Heart rate 81 bpm. Lungs reveal mostly clear breath sounds. Scattered rhonchi are noted. No wheezes or crackles. Breath sounds are equal bilaterally. Thora vent device has been removed. Saturations are 99 %. Abdomen soft bowel sounds are heard. No masses or tenderness. Extremities are intact. No cyanosis clubbing or edema. Skin is without rash or lesion. Neurologic examination is brief but nonfocal. - Labs CBC & Chem 7: 04/07/22 07:35 04/08/22 08:49 Labs: Abnormal Lab Results - Last 24 Hours (Table) 04/07/22 Range/Units 16:43 POC Glucose (mg/dL) 111 H (70-110) mg/dL Microbiology - Last 24 Hours (Table) 04/05/22 10:59 Blood Culture - Preliminary Blood No Growth after 48 hours 04/05/22 10:45 Blood Culture - Preliminary Blood No Growth after 48 hours Assessment and Plan Assessment: Status post fall, with acute rib fractures on the right, and a right-sided pneumothorax, status post Thora vent placement. The device was removed on 04/08/2022. Ongoing tobacco use and nicotine addiction, and likely underlying COPD. History of hypertension. History of anxiety/depression. History of diabetes mellitus. Plan: Plan dated 04/06/2022. The patient appears to be relatively comfortable. I do not see a leak in the Pleur-evac, when the patient takes a deep breath, and/or coughs. Labs, x-rays, medications are reviewed. The patient does continue to smoke. The antibiotics can probably be de-escalated. The patient likely has some underlying COPD. Prognosis is guarded. Plan dated 04/07/2022. The patient's thought that his taken off of suction. The device will likely be removed tomorrow, if the chest x-ray is normal. We will continue to follow. Prognosis is certainly thought to be generally good. Labs, x-rays, and medications are all reviewed. Respiratory status appears stable. She is on 2 L. Saturations are in the mid 90s. Plan dated 04/08/2022. The patient's Thora vent was removed today by cardiothoracic surgery. The follow-up chest x-ray did not reveal a pneumothorax. From their perspective, the patient could be discharged. Currently she is on 3 L. Saturations are 99%. She may not need oxygen therapy. We will continue to follow and make recommendations along the way. Labs, x-rays, and medications are all reviewed. Time with Patient: Less than 30
[2022-04-08] MEDS ORDERED: VANCOMYCIN TROUGH DUE 1 EACH MISC MISCELLANE ONE (19:00)
[2022-04-08] MEDS: VANCOMYCIN 1,000 MG in SODIUM CHLORIDE 0.9% 250 ML IVPB SCH (19:51)
[2022-04-08] MEDS: ALPRAZolam 1 MG TAB PO PRN (19:51)
[2022-04-09] MEDS: SODIUM CHLORIDE 0.9% 1,000 ML IV SCH ×2 (04:20→20:51)
[2022-04-09] MEDS: HEPARIN SODIUM,PORCINE/PF 5,000 UNIT/0.5 ML SYRINGE SQ SCH ×3 (08:31→23:06)
[2022-04-09] MEDS: NICOTINE 21MG/24HR PATCH TRANSDERM SCH (08:31)
[2022-04-09] MEDS: CITALOPRAM HYDROBROMIDE 20 MG TAB PO SCH (08:31)
[2022-04-09] MEDS: THIAMINE 100 MG TAB PO SCH (08:31)
[2022-04-09] MEDS: LOSARTAN 50 MG TAB PO SCH ×2 (08:32→20:50)
[2022-04-09] MEDS: METOPROLOL SUCCINATE (ER) 50 MG TAB.ER.24H PO SCH ×2 (08:32→20:50)
[2022-04-09] MEDS: BUDESONIDE 1 MG/2 ML NEBU INHALATION SCH ×2 (09:06→20:07)
[2022-04-09] MEDS: IPRATROPIUM-ALBUTEROL 3 ML NEB INHALATION SCH ×3 (09:06→20:07)
[2022-04-09 10:32] LABS: African American GFR (CKD) >90 (>60 ml/min/1.73 sqM); Non-African American GFR(CKD) 89 (>60 ml/min/1.73 sqM)
[2022-04-09] MEDS: CEFEPIME 2 GM in SODIUM CHLORIDE 0.9% 100 ML IVPB SCH ×2 (11:22→23:06)
[2022-04-09] MEDS: FOLIC ACID 1 MG TAB PO SCH (11:22)
[2022-04-09] MEDS: MULTIVITAMINS, THERA 1 EACH TAB PO SCH (11:22)
--- NOTE | 2022-04-09 12:39 | P.PN ---
Subjective Progress Note Date: 04/09/22 Principal diagnosis: Right pneumothorax. Pulmonary consult dated 04/06/2022. 72-year-old female seen and evaluated in the emergency department, on April 05. The patient apparently presented to the emergency department, with complaints of shortness of breath. She apparently was found down at home, in the bathroom, and was brought into the emergency room by EMS. She states that she was not down at home for a long period of time, but did hit her right chest against the bathtub. She was given oxygen in route, and was evaluated in the ER, and was found to have a right-sided pneumothorax. She had right-sided chest pain, laterally and posteriorly. A Thora vent was placed by the ER physician. We are asked to see the patient in consultation. She was also seen by cardiothoracic surgery. Currently, the patient is on 2 L of oxygen. She's getting saline at 75 mL an hour. Her primary care provider is Dr. Bailey. The patient is a current smoker, has smoked for many years she likely has some underlying COPD. Other medical history includes diabetes, and hypertension. She also has a history of anxiety/depression. White count 15.6, hemoglobin 11, hematocrit 35.8, and platelet count 219,000. Sodium 140, potassium 3.8, chlorides 106, CO2 32, BUN 18, creatinine 0.73. Albumin is 2.6. Urine is suspicious for a urinary tract action. Troponin was 0.046 and N-terminal proBNP was 3150. Initial chest x-ray shows a 30-40% right-sided pneumothorax, and acute rib fractures, on the right, #6, #7, and #8. Progress note dated 04/07/2022. 72-year-old female seen yesterday in consultation. She is seen again today in room 372. Currently, she is on a couple liters of oxygen. She has a right- sided Thora vent. She's been seen by cardiothoracic surgery today, and a Thora vent was taken off of suction. The plan is to get a chest x-ray in the morning, and of the lungs expanded, to take the device out. She's not receiving any IV fluids. The patient has a white count of 11.8, hemoglobin 10.5, hematocrit 34.7, and platelet count 222,000. Sodium 138, potassium 3.5, chlorides 104, CO2 31, BUN 12, creatinine 0.63. Chest x-ray shows bibasilar infiltrates or at electasis. There is a small right-sided pleural effusion. No pneumothorax is seen. Blood and urine cultures are thus far negative. The patient's on cefepime and vancomycin, although, I'm not sure why. Progress note dated 04/08/2022. The patient is again seen in room 372. She remains on oxygen at 2 L. The Thora vent device was removed by cardiothoracic surgery. A follow-up chest x-ray will be done. From their perspective, if there is full expansion of the right lung, without pneumothorax, the patient could be considered for discharge. She has no new complaints today. No new laboratory data today other than a creatinine of 0.7, and a glucose of 86. The repeat chest x-ray shows no pneumothorax, after the removal of the Thora vent. Progress note dated 04/09/2022. 72-year-old female seen in room 372. The patient had her Thora vent removed yesterday by cardiothoracic surgery. The patient's doing well, and continues on 3 L of oxygen. Saturations are excellent. She has no particular complaints today. The only new lab is a creatinine of 0.62. Chest x-ray before and after Thora vent removal have been reviewed. Objective - Vital Signs Vital signs: Vital Signs Temp 98.2 F 04/09/22 11:20 Pulse 64 04/09/22 12:06 Resp 18 04/09/22 11:20 BP 108/66 04/09/22 11:20 Pulse Ox 92 L 04/09/22 11:20 FiO2 100 04/05/22 11:08 Intake & Output 04/08/22 04/09/22 04/09/22 18:59 06:59 18:59 Intake Total 345 130 Balance 345 130 Intake: IV 10 Invasive Line 3 10 Oral 345 120 Other: Voiding Method Diaper Diaper Diaper # Voids 1 1 1 - Exam No acute distress, oriented 3. Currently on 3 L nasal cannula. Saturations are 96%. HEENT examination is grossly unremarkable. Neck supple. Full range of motion. No adenopathy thyromegaly or neck vein distention. Cardiovascular examination reveals regular rhythm rate. S1-S2 normal. No S3 or S4. No discernible murmur noted. Heart rate 64 bpm. Lungs reveal mostly clear breath sounds. Scattered rhonchi are noted. No wheezes or crackles. Breath sounds are equal bilaterally. Thora vent device has been removed. Saturations are 96 %. Abdomen soft bowel sounds are heard. No masses or tenderness. Extremities are intact. No cyanosis clubbing or edema. Skin is without rash or lesion. Neurologic examination is brief but nonfocal. - Labs CBC & Chem 7: 04/07/22 07:35 04/09/22 09:30 Labs: Microbiology - Last 24 Hours (Table) 04/05/22 10:45 Blood Culture - Preliminary Blood No Growth after 72 hours 04/05/22 10:59 Blood Culture - Preliminary Blood No Growth after 72 hours Assessment and Plan Assessment: Status post fall, with acute rib fractures on the right, and a right-sided pneumothorax, status post Thora vent placement. The device was removed on 04/08/2022. Ongoing tobacco use and nicotine addiction, and likely underlying COPD. History of hypertension. History of anxiety/depression. History of diabetes mellitus. Plan: Plan dated 04/06/2022. The patient appears to be relatively comfortable. I do not see a leak in the Pleur-evac, when the patient takes a deep breath, and/or coughs. Labs, x-rays, medications are reviewed. The patient does continue to smoke. The antibiotics can probably be de-escalated. The patient likely has some underlying COPD. Prognosis is guarded. Plan dated 04/07/2022. The patient's thought that his taken off of suction. The device will likely be removed tomorrow, if the chest x-ray is normal. We will continue to follow. Prognosis is certainly thought to be generally good. Labs, x-rays, and medicati ons are all reviewed. Respiratory status appears stable. She is on 2 L. Saturations are in the mid 90s. Plan dated 04/08/2022. The patient's Thora vent was removed today by cardiothoracic surgery. The follow-up chest x-ray did not reveal a pneumothorax. From their perspective, the patient could be discharged. Currently she is on 3 L. Saturations are 99%. She may not need oxygen therapy. We will continue to follow and make recommendations along the way. Labs, x-rays, and medications are all reviewed. Plan dated 04/09/2022. The patient is stable from the pulmonary standpoint. Thora vent was removed yesterday. The patient continues on 3 L. Saturations are in the mid to high 90s. Labs, x-rays, and medications are all reviewed. Prognosis is guarded. We will continue to follow the patient and make recommendations along the way. Time with Patient: Less than 30
[2022-04-09] MEDS: ALPRAZolam 1 MG TAB PO PRN (17:57)
--- NOTE | 2022-04-09 19:35 | PN ---
PROGRESS NOTE SUBJECTIVE: This 72-year-old woman who was admitted with fall and right pneumothorax, had a Thora- Vent removed today. No chest pain. No palpitations. No fever. Chest x-ray reviewed. PHYSICAL EXAMINATION: VITAL SIGNS: Pulse is 62, blood pressure 120/80, respirations 20. CHEST: A few scattered rhonchi and crackles. CARDIOVASCULAR: S1, S2. ABDOMEN: Soft. NERVOUS SYSTEM: Diffusely weak. LABS: Reviewed. ASSESSMENT: 1. Fall and acute right pneumothorax, traumatic, status post Thora-Vent. 2. Acute urinary tract infection, present on admission. 3. Troponin 0.05, indeterminate. 4. Gait dysfunction. 5. Multiple medical issues. RECOMMENDATIONS: Recommend to continue current management, continue symptomatic treatment. Continue the pain management and PT/OT evaluation, Possible ECF rehab. Closely follow with multiple consultants. Prognosis guarded. CHANI / BENEDICT: [id number] /
[2022-04-09] MEDS: VANCOMYCIN 1,000 MG in SODIUM CHLORIDE 0.9% 250 ML IVPB SCH (20:50)
[2022-04-10] MEDS: SODIUM CHLORIDE 0.9% 1,000 ML IV SCH (03:09)
[2022-04-10] MEDS: BUDESONIDE 1 MG/2 ML NEBU INHALATION SCH ×2 (08:18→19:34)
[2022-04-10] MEDS: IPRATROPIUM-ALBUTEROL 3 ML NEB INHALATION SCH ×3 (08:18→19:34)
[2022-04-10] MEDS: NICOTINE 21MG/24HR PATCH TRANSDERM SCH (08:52)
[2022-04-10] MEDS: HEPARIN SODIUM,PORCINE/PF 5,000 UNIT/0.5 ML SYRINGE SQ SCH ×3 (08:52→23:02)
[2022-04-10] MEDS: LOSARTAN 50 MG TAB PO SCH ×2 (08:52→19:44)
[2022-04-10] MEDS: THIAMINE 100 MG TAB PO SCH (08:52)
[2022-04-10] MEDS: METOPROLOL SUCCINATE (ER) 50 MG TAB.ER.24H PO SCH ×2 (08:52→19:44)
[2022-04-10] MEDS: ALPRAZolam 1 MG TAB PO PRN ×2 (08:52→19:44)
[2022-04-10] MEDS: CITALOPRAM HYDROBROMIDE 20 MG TAB PO SCH (08:52)
--- NOTE | 2022-04-10 09:08 | PN ---
PROGRESS NOTE SUBJECTIVE: This is a -rwjs-[id number] woman, who was admitted with fall and right pneumothorax, had a Thora-Vent replaced. The patient is weak and slightly confused. OBJECTIVE: VITAL SIGNS: Pulse is 56, blood pressure 108/60, respirations 18. CHEST: Few scattered rhonchi and crackles. CARDIOVASCULAR: S1 and S2. ABDOMEN: Soft. NERVOUS SYSTEM: Generally weak. LABORATORY DATA: Reviewed. ASSESSMENT: 1. Fall and right pneumothorax, traumatic, status post Thora-Vent insertion. 2. Acute urinary tract infection, present on admission. 3. Troponin 0.056, indeterminate. 4. Diabetes mellitus, type 2. 5. Gait dysfunction. 6. Multiple medical issues. RECOMMENDATIONS: Recommend to continue current management and symptomatic treatment. Otherwise, increase ambulation. Consider home versus ECF rehab. Further recommendations to follow. PT and OT evaluation. CHANI / BENEDICT: [id number] /
[2022-04-10 11:42] LABS: Basophils % (A) 1 %; Eosinophils # (A) 0.2 k/uL (0-0.7); Eosinophils % (A) 2 %; HCT 37.4 % (34.0-46.0); Hypochromasia Slight; Lymphocytes % (A) 14 %; MCH 29.8 pg (25.0-35.0); MCHC 32.1 g/dL (31.0-37.0); MCV 92.9 fL (80.0-100.0); Monocytes # (A) 0.2 k/uL (0-1.0); Monocytes % (A) 3 %; Neutrophils # (A) 5.2 k/uL (1.3-7.7); Neutrophils % (A) 77 %; Platelet Count 302 k/uL (150-450); RBC 4.02 m/uL (3.80-5.40); RDW 13.3 % (11.5-15.5); WBC 6.8 k/uL (3.8-10.6)
[2022-04-10 11:56] LABS: African American GFR (CKD) >90 (>60 ml/min/1.73 sqM); Anion Gap 5 mmol/L; Blood Urea Nitrogen 10 mg/dL (7-17); Calcium 8.5 mg/dL (8.4-10.2); Carbon Dioxide 33 mmol/L (22-30); Chloride 96 mmol/L (98-107); Glucose 89 mg/dL (74-99); Non-African American GFR(CKD) 87 (>60 ml/min/1.73 sqM); Potassium 3.6 mmol/L (3.5-5.1); Sodium 134 mmol/L (137-145)
[2022-04-10] MEDS: CEFEPIME 2 GM in SODIUM CHLORIDE 0.9% 100 ML IVPB SCH ×2 (12:23→23:03)
[2022-04-10] MEDS: MULTIVITAMINS, THERA 1 EACH TAB PO SCH (12:25)
[2022-04-10] MEDS: FOLIC ACID 1 MG TAB PO SCH (12:25)
--- NOTE | 2022-04-10 13:33 | XR ---
EXAMINATION TYPE: XR chest 2V DATE OF EXAM: 04/10/2022 1:16 PM COMPARISON: Chest radiographs from 04/08/2022. TECHNIQUE: XR chest 2V Frontal and lateral views of the chest. CLINICAL INDICATION:Female, 72 years old with history of dyspnea; FINDINGS: Lungs/Pleura: No pneumothorax. Small bilateral pleural effusions redemonstrated. Persistent retrocard iac opacity which could represent pneumonic infiltrate or atelectasis. Pulmonary vascularity: Pulmonary vascular congestion. Heart/mediastinum: Cardiomediastinal silhouette is unremarkable. Atherosclerotic calcifications are seen in the aorta. Musculoskeletal: No acute osseous pathology. IMPRESSION: 1. Redemonstration of small bilateral pleural effusions and persistent retrocardiac opacity which co uld represent pneumonic infiltrate or atelectasis. 2. Pulmonary vascular congestion.
[2022-04-10] MEDS ORDERED: FUROSEMIDE 10 MG/ML 2 ML VIAL IV ONE (14:55)
[2022-04-10] MEDS ORDERED: POTASSIUM CHLORIDE ER 20 MEQ TAB.ER PO STA (14:59)
--- NOTE | 2022-04-10 15:09 | P.PN ---
Subjective Progress Note Date: 04/10/22 This is a 72 year old female admitted with fall and traumatic pneumothorax. Thoravent catheter was placed and managed by cardiothoracic services, which the thoravent was removed on 04/08. Patient continues on 3.5 L of nasal cannula. Repeat chest xray completed this afternoon showing small bilateral pleural effusions and pulmonary vascular congestion. Blood count panel has normalized. Sodium today 134. Patient has only top dentures in place, on dysphagia 3 chopped diet, ensure has been added today. Blood and urine cultures are negative, procalcitonin level 0.69. Vancomycin discontinued. Encourage incentive spirometer use. Review of Systems Constitutional: Denied any fatigue denied any fever. Cardio vascular: denied any chest pain, palpitations Gastrointestinal: denied any nausea, vomiting, diarrhea, reports decreased appetite Pulmonary: Denied any shortness of breath cough Neurologic denied any new focal deficits All inpatient medications were reviewed and appropriate changes in these medi cations as dictated in the interval history and assessment and plan. PHYSICAL EXAMINATION: GENERAL: The patient is alert and oriented x3, not in any acute distress. Well developed, well nourished. HEENT: Pupils are round and equally reacting to light. EOMI. No scleral icterus. No conjunctival pallor. Normocephalic, atraumatic. No pharyngeal erythema. No thyromegaly. CARDIOVASCULAR: S1 and S2 present. No murmurs, rubs, or gallops. PULMONARY: Chest is clear to auscultation, no wheezing or crackles. ABDOMEN: Soft, nontender, nondistended, normoactive bowel sounds. No palpable organomegaly. MUSCULOSKELETAL: No joint swelling or deformity. EXTREMITIES: No cyanosis, clubbing, or pedal edema. NEUROLOGICAL: Gross neurological examination did not reveal any focal deficits. SKIN: No rashes. Assessment and plan Assessment Fall and right pneumothorax, traumatic, status post thoravent insertion Hyponatremia Acute urinary tract infection, culture negative Hypertension Troponin leak Diabetes mellitus type 2 Gait dysfunction Anxiety/Depression Daily Tobacco use GI Prophylaxis DVT Prophylaxis Full Code Plan Continue bronchodilators Encourage incentive spirometery Wean oxygen as tolerated Increase activity level One time dose IV lasix, and repeat sodium level tomorrow Vancomycin discontinued Possible DC in the next 24 hours to subacute rehab The impression and plan of care has been dictated by Celestina Mary Nurse Practitioner as directed. Dr. Gaby MD I have performed a history and physical examination and medical decision making of this patient, discussed the same with the dictator, and agree with the dictators assessment and plan as written, documented as a scribe. Based on total visit time, I have performed more than 50% of this visit. Objective - Vital Signs Vital signs: Vital Signs Temp 96.5 F L 04/10/22 12:00 Pulse 72 04/10/22 12:22 Resp 18 04/10/22 12:00 BP 142/68 04/10/22 12:00 Pulse Ox 100 04/10/22 12:00 FiO2 100 04/05/22 11:08 Intake & Output 04/09/22 04/10/22 04/10/22 18:59 06:59 18:59 Intake Total 500 0 Balance 500 0 Weight 44.5 kg Intake: IV 20 Invasive Line 3 20 Oral 480 0 Other: Voiding Method Diaper Diaper Diaper # Voids 1 2 # Bowel Movements 0 - Labs CBC & Chem 7: 04/10/22 11:03 04/10/22 11:03 Labs: Abnormal Lab Results - Last 24 Hours (Table) 04/10/22 Range/Units 11:03 Sodium 134 L (137-145) mmol/L Chloride 96 L (98-107) mmol/L Carbon Dioxide 33 H (22-30) mmol/L Microbiology - Last 24 Hours (Table) 04/05/22 10:59 Blood Culture - Preliminary Blood No Growth after 120 hours 04/05/22 10:45 Blood Culture - Preliminary Blood No Growth after 120 hours Assessment and Plan Time with Patient: Less than 30
[2022-04-10 23:37] VITALS: RESP 16
[2022-04-11] MEDS ORDERED: ALPRAZolam 0.5 MG TAB PO PRN (07:52)
[2022-04-11 08:43] LABS: Basophils % (A) 1 %; Eosinophils # (A) 0.2 k/uL (0-0.7); Eosinophils % (A) 3 %; HCT 37.6 % (34.0-46.0); HGB 12.2 gm/dL (11.4-16.0); Hypochromasia Slight; Lymphocytes % (A) 17 %; MCH 30.2 pg (25.0-35.0); MCHC 32.4 g/dL (31.0-37.0); MCV 93.4 fL (80.0-100.0); Mean Platelet Volume 7.8; Monocytes # (A) 0.3 k/uL (0-1.0); Monocytes % (A) 6 %; Neutrophils # (A) 4.1 k/uL (1.3-7.7); Neutrophils % (A) 71 %; Platelet Count 320 k/uL (150-450); RBC 4.03 m/uL (3.80-5.40); RDW 12.9 % (11.5-15.5); WBC 5.8 k/uL (3.8-10.6)
[2022-04-11] MEDS: IPRATROPIUM-ALBUTEROL 3 ML NEB INHALATION SCH ×2 (08:43→12:08)
[2022-04-11] MEDS: BUDESONIDE 1 MG/2 ML NEBU INHALATION SCH (08:43)
[2022-04-11 09:00] LABS: African American GFR (CKD) >90 (>60 ml/min/1.73 sqM); Anion Gap 3 mmol/L; Blood Urea Nitrogen 10 mg/dL (7-17); Calcium 8.6 mg/dL (8.4-10.2); Carbon Dioxide 38 mmol/L (22-30); Chloride 94 mmol/L (98-107); Glucose 85 mg/dL (74-99); Magnesium 1.6 mg/dL (1.6-2.3); Non-African American GFR(CKD) 89 (>60 ml/min/1.73 sqM); Potassium 3.7 mmol/L (3.5-5.1); Sodium 135 mmol/L (137-145)
[2022-04-11 09:05] VITALS: TEMP 97.7
[2022-04-11] MEDS: METOPROLOL SUCCINATE (ER) 50 MG TAB.ER.24H PO SCH (09:06)
[2022-04-11] MEDS: NICOTINE 21MG/24HR PATCH TRANSDERM SCH (09:06)
[2022-04-11] MEDS: CITALOPRAM HYDROBROMIDE 20 MG TAB PO SCH (09:06)
[2022-04-11] MEDS: HEPARIN SODIUM,PORCINE/PF 5,000 UNIT/0.5 ML SYRINGE SQ SCH ×2 (09:06→16:21)
[2022-04-11] MEDS: LOSARTAN 50 MG TAB PO SCH (09:06)
[2022-04-11] MEDS: THIAMINE 100 MG TAB PO SCH (09:06)
[2022-04-11 12:36] VITALS: BP 141/84; PULSE 72
[2022-04-11] MEDS: FOLIC ACID 1 MG TAB PO SCH (12:40)
[2022-04-11] MEDS: MULTIVITAMINS, THERA 1 EACH TAB PO SCH (12:40)
[2022-04-11] MEDS: CEFEPIME 2 GM in SODIUM CHLORIDE 0.9% 100 ML IVPB SCH (12:40)
--- NOTE | 2022-04-11 13:27 | P.DS ---
Providers Date of admission: 04/05/22 14:23 Attending physician: Loy Polo Consults: 04/05/22 14:19 Consult Physician Routine Consulting Provider: [facility] Salas Consult Reason/Comments: Chest tube, spontaneous pneumothorax Do you want consulting provider notified?: Already Contacted 04/05/22 14:51 Consult Physician Routine Consulting Provider: [facility] Consult Reason/Comments: elevated troponin Do you want consulting provider notified?: Yes 04/05/22 15:20 Consult Physician Routine Consulting Provider: Woo Rincon Consult Reason/Comments: Abnorml ABGs Do you want consulting provider notified?: Yes 04/05/22 16:35 Consult Physician Routine Consulting Provider: Woo Rincon Consult Reason/Comments: pneumo Do you want consulting provider notified?: Yes Primary care physician: Janel Bailey Hospital Course: Final Diagnosis Fall and right pneumothorax, traumatic, status post thoravent insertion Hyponatremia Acute urinary tract infection, culture negative Hypertension Troponin leak Diabetes mellitus type 2 Gait dysfunction Anxiety/Depression Daily Tobacco use GI Prophylaxis DVT Prophylaxis Full Code Discharge Disposition Patient is stable for discharge from medical standpoint. Patient will be discharged to sub acute rehab. She has been weaned to room air. Thoravent has been discontinued. Recommend to repeat basic metabolic panel and magnesium level outpatient. Follow up with Cardiology as needed. Follow up with pulmonary services in 1 to 2 weeks. Xanax has been decreased to 0.5 mg twice a day as needed. Total time taken in discharge planning greater than 35 minutes. Hospital Course This is a 72 year old female admitted with fall and traumatic pneumothorax. Patient follows with Dr Janel Bailey in the primary care setting. Chronic conditions include hypertension, anxiety, depression, daily tobacco use. Patient lives at home and picks up meals on wheels, when she had not picked up food in a few days EMS was called for a well check and patient was found in bathroom with unknown down time. Family friend reports last seeing patient Sunday morning prior to admission. Patient was hypoxic on room air when found and was brought to for evaluation. She complained of right sided rib pain on admission and chest xray was done showing a 30-40% right sided pneumothorax with rib deformities at 6 7 and 8 level suspicious for fracture. Follow up CT was taken status post thoravent placement which revealing a small right pneumothorax, left diaphragm irregular mass like area, COPD, mild diverticulosis, and also irregular appearance to thyroid. Cardiothoracic services were consulted for management of thoravent catheter and have followed along with patient this hospital stay. Thoravent was removed on 04/08. Patient continued on 3.5 L of nasal cannula. Repeat chest xray completed on 04/10 showing small bilateral pleural effusions and pulmonary vascular congestion. Blood count panel has normalized. Sodium 134. A one time dose of IV lasix was given and patient was able to be weaned off oxygen on room air and reports breathing much better. Patient was started on empiric antibiotic coverage with vancomycin and cefepime this admission as well which were discontinued prior to discharge. Cardiology evaluated the patient and recommended decreasing betablocker to 50 mg bid and also echocardiogram was completed showing an EF of 55 to 60% and moderate pulmonary hypertension, mild to moderate TR. Patient has only top dentures in place, on dysphagia 3 chopped diet, ensure has been added. Blood and urine cultures are negative. 04/11/2022 Patient is evaluated today sitting up in bed. She reports feeling much better and is breathing better. She is evaluated on room air. She is alert x3. She is drinking ensures and appetite is fair. She reports no chest pain no shortness of breath, no nausea, vomiting or diarrhea. No reports of dysuria. Bowels have moved. Her lungs are clear, S1 S2 auscultated, abdomen is soft and nontender. This is a frail built elderly female. She has top dentures in place. She continues to smoke cigarettes daily and is requesting to be discharged on nicotine patch. Labs today showing sodium level of 135 which improved slightly after dose of lasix, potassium 3.7, BUN 10, creatinine 0.63, magnesium 1.6. White count 5.8, hgb stable at 12.2. Temperature 97.7, heart rate 68, blood pressure 141/84, 95% on room air. Patient is cleared medically for discharge today to subacute rehab. Please see medication reconciliation for a list of current medication. Thank you for allowing us to participate in the care of this patient. The impression and plan of care has been dictated by Celestina Mary, Nurse Practitioner as directed. Dr. Gaby MD I have performed a history and physical examination and medical decision making of this patient, discussed the same with the dictator, and agree with the dictators assessment and plan as written, documented as a scribe. Based on total visit time, I have performed more than 50% of this visit. Patient Condition at Discharge: Stable Plan - Discharge Summary Discharge Rx Participant: No New Discharge Prescriptions: New Ipratropium-Albuterol Nebulize [Duoneb 0.5 mg-3 mg/3 ml Soln] 3 ml INHALATION RT-TID PRN each PRN Reason: Shortness Of Breath Or Wheezing Folic Acid 1 mg PO DAILY@1200 tab Multivitamins, Thera [Multivitamin (formulary)] 1 each PO DAILY@1200 tab Budesonide [Pulmicort] 1 mg INHALATION RT-BID ml Metoprolol Succinate (ER) [Toprol XL] 50 mg PO BID tab Thiamine [Vitamin B-1] 100 mg PO DAILY tab ALPRAZolam [Xanax] 0.5 mg PO BID PRN #4 tab PRN Reason: Anxiety Nicotine 21Mg/24Hr Patch [Habitrol] 1 patch TRANSDERM DAILY #0 patch Magnesium Oxide [Mag-Ox] 400 mg PO BID #14 tablet Continue Vit C/E/Zn/Coppr/Lutein/Zeaxan [Preservision Areds 2 Softgel] 1 cap PO BID Losartan Potassium [Cozaar] 50 mg PO BID Cyanocobalamin (Vitamin B-12) [Vitamin B-12] 1,000 mcg PO DAILY Citalopram Hydrobromide [Citalopram HBr] 20 mg PO DAILY Discontinued diphenhydrAMINE [Benadryl] 25 mg PO QID PRN PRN Reason: Allergy Symptoms ALPRAZolam [Xanax] 1 mg PO TID PRN PRN Reason: Anxiety Metoprolol Succinate (ER) [Toprol Xl] 100 mg PO BID Discharge Medication List Citalopram Hydrobromide [Citalopram HBr] 20 mg PO DAILY 10/15/20 [History] Cyanocobalamin (Vitamin B-12) [Vitamin B-12] 1,000 mcg PO DAILY 10/15/20 [History] Losartan Potassium [Cozaar] 50 mg PO BID 10/15/20 [History] Vit C/E/Zn/Coppr/Lutein/Zeaxan [Preservision Areds 2 Softgel] 1 cap PO BID 10/15/20 [History] ALPRAZolam [Xanax] 0.5 mg PO BID PRN #4 tab 04/11/22 [Rx] Budesonide [Pulmicort] 1 mg INHALATION RT-BID ml 04/11/22 [Rx] Folic Acid 1 mg PO DAILY@1200 tab 04/11/22 [Rx] Ipratropium-Albuterol Nebulize [Duoneb 0.5 mg-3 mg/3 ml Soln] 3 ml INHALATION RT-TID PRN each 04/11/22 [Rx] Magnesium Oxide [Mag-Ox] 400 mg PO BID #14 tablet 04/11/22 [Rx] Metoprolol Succinate (ER) [Toprol XL] 50 mg PO BID tab 04/11/22 [Rx] Multivitamins, Thera [Multivitamin (formulary)] 1 each PO DAILY@1200 tab 04/11/22 [Rx] Nicotine 21Mg/24Hr Patch [Habitrol] 1 patch TRANSDERM DAILY #0 patch 04/11/22 [Rx] Thiamine [Vitamin B-1] 100 mg PO DAILY tab 04/11/22 [Rx] Follow up Appointment(s)/Referral(s): Janel Bailey MD [Primary Care Provider] - 1-2 days Manuel Bernal MD [STAFF PHYSICIAN] - 1 Week Rafy Duffy MD [STAFF PHYSICIAN] - As Needed Woo Rincon DO [Doctor of Osteopathic Medicine] - 1 Week Ambulatory/Diagnostic Orders: Basic Metabolic Panel [LAB.AMB] Time Frame: 2 Days, Location: None Selected Magnesium [LAB.AMB] Time Frame: 7 Days, Location: None Selected Activity/Diet/Wound Care/Special Instructions: DISCHARGE INSTRUCTIONS: 1. No driving for 2 weeks, or until physician gives their ok. 2. No lifting, pushing, or pulling more than 10 pounds for 2 weeks. The physician will advise of any restriction changes. 3. Continue pain control per as needed orders. Alternate acetaminophen (Tylenol) and ibuprofen (Motrin/Advil) for pain. 4. Continue with incentive spirometry and splinting until otherwise directed by the physician. 5. Leave chest tube dressing for 48 hours (until Sunday04/10/22). After that, remove all dressings and shower daily. 6. Routine incision care. No powders, lotions, ointments on incisions. 7. Please call surgeon/ARNP for temp greater than 101 F or purulent drainage from incisions. 8. Smoking cessation counseling and program information provided. Continue oral magnesium twice a day for 7 days Repeat BMP and magnesium outpatient Follow up with cardiology as needed Follow up with pulmonary Continue nicotine patch taper Discharge Disposition: TRANSFER TO SNF/ECF
[2022-04-11] MEDS ORDERED: MAGNESIUM OXIDE 400 MG TAB PO STA (15:43)
[2022-04-11] MEDS: MAGNESIUM SULFATE-D5W PMX 1 GM in DEXTROSE/WATER 1 100ML.BAG IVPB SCH ×2 (15:45→15:47)
--- NOTE | 2022-04-14 07:55 | CDI ---
Documentation Clarification Form Date: 04/14/22 From: Sarah Brown Admit Date: 04/05/2022 02:23:00 PM Patient Name: Meredith Massey Visit Number: [id number] Discharge Date: 04/11/2022 06:10:00 PM ATTENTION: The Clinical Documentation Specialists (CDI) and [facility] Coding Staff appreciate your assistance in clarifying documentation. Please respond to the clarification below the line at the bottom and electronically sign. The CDI & [facility] Coding staff will review the response and follow-up if needed. Please note: Queries are made part of the Legal Health Record. If you have any questions, please contact the author of this message via ITS. Dr. Haroon Griffin, Your patient is hypoxic per ED Note. Based on this information and the findings below, is there an additional diagnosis that is clinically appropriate for this patient? History/Risk Factors: traumatic pneumothorax, emphysema, acidosis, hyponatremia, multiple rib fxs-right, UTI, T2D Tobacco use: smoke cigarettes daily Home oxygen: none Clinical Indicators: She was found hypoxic at the scene on room air. Improved on non-rebreather. Vital signs: T 97.8, P 116, R 20, BP 141/83, Pulse oximetry: O2 80 non-rebreather 15 Lung/Breathing assessment: ABG: pH 7.26 pO2 58 pCO2 Lactate 4.4 Treatment: chest tube, IV antibiotics Breathing tx: Albuterol/Ipratropium Continuous Pulse ox: yes O2/BiPap: yes Is there an additional diagnosis that is clinically appropriate for this patient? [ x ] Acute Hypoxic Respiratory Failure (pO2 <60 mm Hg or SpO2 <91% on room air) [ ] Acute Hypercapnic Respiratory Failure (pCO2 >50 and pH <7.35) [ ] Acute Respiratory Distress [ ] Acute Respiratory Insufficiency [ ] Other Diagnosis, please specify [ ] Unable to determine MTDD
--- NOTE | 2022-04-14 08:25 | CDI ---
Documentation Clarification Form Date: 04/14/2022 07:56:00 AM From: Sarah Brown Admit Date: 04/05/2022 02:23:00 PM Patient Name: Meredith Massey Visit Number: [id number] Discharge Date: 04/11/2022 06:10:00 PM ATTENTION: The Clinical Documentation Specialists (CDI) and [facility] Coding Staff appreciate your assistance in clarifying documentation. Please respond to the clarification below the line at the bottom and electronically sign. The CDI & [facility] Coding staff will review the response and follow-up if needed. Please note: Queries are made part of the Legal Health Record. If you have any questions, please contact the author of this message via ITS. Dr. Haroon Griffin, The Registered Dietitian assessment on 04/07indicates this patient meets criteria for severe malnutrion. Based on this information and the findings below, is there an additional diagnosis that is clinically appropriate for this patient? History/Risk Factors: traumatic pneumothorax, emphysema, acidosis, hyponatremia, multiple rib fxs-right, UTI, T2D Clinical Indicators: Per ED Note "Appear dehydrated was found hypoxic at the scene on room air." RD Consult Assessment: Malnutrition - Severe malnutrition in context environmental circumstances Current BMI: 16.3 Insufficient energy intake: 25-50%, difficulty chewing, doesn't have lower dentures, only wants soft foods Weight Loss: Underweight, severe muscle/fat wasting (temporalis/delts/pectoralis) Loss of muscle mass: severe muscle/fat wasting (see above); <50% est needs X 6 months Treatment: Dietary Consult: Nutrition education: survival information, nutrition relationship to health/disease, recommended modifications, discussed adequate nutrition. Increase PO intake from 50% to 75% Supplements: Regular; NDD# diet to meet est needs, Ensure Clear Is there an additional diagnosis that is clinically appropriate for this patient? [ x ] Mild Protein-Calorie Malnutrition [ ] Moderate Protein-Calorie Malnutrition [ ] Severe Protein-Calorie Malnutrition [ ] Other condition, please specify [ ] Unable to Determine MTDD
--- NOTE | 2022-04-14 08:40 | CDI ---
Documentation Clarification Form Date: 04/14/2022 08:33:00 AM From: Sarah Brown Admit Date: 04/05/2022 02:23:00 PM Patient Name: Meredith Massey Visit Number: [id number] Discharge Date: 04/11/2022 06:10:00 PM ATTENTION: The Clinical Documentation Specialists (CDI) and [facility] Coding Staff appreciate your assistance in clarifying documentation. Please respond to the clarification below the line at the bottom and electronically sign. The CDI & [facility] Coding staff will review the response and follow-up if needed. Please note: Queries are made part of the Legal Health Record. If you have any questions, please contact the author of this message via ITS. Dr. Haroon Griffin, A stage I coccyx pressure ulcer is documented by Wound Care on 04/08 under wound assessment wound. Based on this information and the findings below, is there an additional diagnosis that is clinically appropriate for this patient? History/Risk Factors: fall from tripping resulting in traumatic pneumothorax- length of time down unknown, hyponatremia,multiple rib fxs-right, UTI, T2D, smokes cigarettes Clinical Indicators: Nursing: stage 1 of coccyx Location: coccyx Wound description: no open wound Treatment: Medicated gel & ointment, zinc cream Is there an additional diagnosis that is clinically appropriate for this patient and the POA? [ x] Coccyx Pressure Ulcer Stage 1, POA [ ] Coccyx Pressure Ulcer Stage 1, Not POA [ ] [insert location of ulcer] Pressure Ulcer unstageable [ ] Unable to determine Clinical Definitions: Stage 1 Pressure Ulcer: intact skin, non-blanching redness of local area Stage 2 Pressure Ulcer: Partial thickness, loss of dermis, pink wound bed Stage 3 Pressure Ulcer: Full thickness tissue loss Stage 4 Pressure Ulcer: Full thickness tissue loss with exposed bone, tendon, or muscle. Unstageable pressure ulcer: Full thickness tissue loss in which the base of the ulcer is covered by slough (yellow, madrigal, rojas, green or brown) and/or eschar (madrigal, brown or black) in the wound bed. MTDD
== END 2022-04-11 18:10 | DRG 199 ==
LOC: EC 10:36 → 3SCARD 14:23
PROVIDERS: ADMIT Hospitalist; ATTEND Hospitalist
PROC: 0W9930Z Drainage of Right Pleural Cavity with Drainage Device, Percutaneous Approach (ICD-10-PCS; principal; 2022-04-05)
PROC: 5A09357 Assistance with Respiratory Ventilation, Less than 24 Consecutive Hours, Continuous Positive Airway Pressure (ICD-10-PCS; principal; 2022-04-05)
DX: S27.0XXA Traumatic pneumothorax, initial encounter (principal); J96.01 Acute respiratory failure with hypoxia; E44.1 Mild protein-calorie malnutrition; E87.1 Hypo-osmolality and hyponatremia; E87.20 Acidosis, unspecified; S22.41XA Multiple fractures of ribs, right side, initial encounter for closed fracture; J90 Pleural effusion, not elsewhere classified; N39.0 Urinary tract infection, site not specified; Z68.1 Body mass index [BMI] 19.9 or less, adult; I27.20 Pulmonary hypertension, unspecified; L89.151 Pressure ulcer of sacral region, stage 1; R54 Age-related physical debility; J43.9 Emphysema, unspecified; E11.9 Type 2 diabetes mellitus without complications; Z20.822 Contact with and (suspected) exposure to COVID-19; Z28.310 Unvaccinated for COVID-19; E86.0 Dehydration; I10 Essential (primary) hypertension; I07.1 Rheumatic tricuspid insufficiency; F41.9 Anxiety disorder, unspecified; F32.A Depression, unspecified; R26.9 Unspecified abnormalities of gait and mobility; R32 Unspecified urinary incontinence; R77.8 Other specified abnormalities of plasma proteins; F17.210 Nicotine dependence, cigarettes, uncomplicated; Z71.6 Tobacco abuse counseling; Z79.899 Other long term (current) drug therapy; W01.0XXA Fall on same level from slipping, tripping and stumbling without subsequent striking against object, initial encounter; Y92.002 Bathroom of unspecified non-institutional (private) residence as the place of occurrence of the external cause
CPT/HCPCS: 36415; 36600; 51701; 70450; 71045; 71046; 71260; 72125; 72129; 72132; 72170; 74177; 80048; 80053; 80202; 81001; 82140; 82550; 82565; 82803; 82805; 83605; 83735; 83880; 84145; 84484; 85025; 85610; 85730; 87040; 87086; 87635; 93005; 93306; 94640; 94660; 94760; 96361; 96365; 96366; 96368; 96372; 96375; 99291

== ENCOUNTER 2022-04-16 12:36 | Emergency (ER) | payer MEDICARE ==
--- NOTE | 2022-04-16 12:46 | ED ---
Chest Pain HPI - General Stated Complaint: chest pressure Time Seen by Provider: 04/16/22 12:36 Source: patient, EMS, RN notes reviewed, old records reviewed Mode of arrival: EMS - History of Present Illness Initial Comments: 72-year-old female history of extensive medical history who was recently in the hospital earlier this month with complaints of shortness of breath and right- sided pneumothorax. She does have a history of COPD history of anxiety depression. Per passed out today she's had chest pain it has been treated with Xanax which usually takes care of it this morning she had chest discomfort midsternal that didn't get better with Xanax. She points to the lower costal sternal margins she denies any cough fevers chills sweats she is hard of hearing she states no other complaints or modifying factors at this time MD Complaint: chest pain - Related Data Home Medications Medication Instructions Recorded Confirmed Citalopram Hydrobromide 20 mg PO DAILY 10/15/20 04/05/22 [Citalopram HBr] Cyanocobalamin (Vitamin B-12) 1,000 mcg PO DAILY 10/15/20 04/05/22 [Vitamin B-12] Losartan Potassium [Cozaar] 50 mg PO BID 10/15/20 04/05/22 Vit C/E/Zn/Coppr/Lutein/Zeaxan 1 cap PO BID 10/15/20 04/05/22 [Preservision Areds 2 Softgel] Previous Rx's Medication Instructions Recorded ALPRAZolam [Xanax] 0.5 mg PO BID PRN #4 tab 04/11/22 Budesonide [Pulmicort] 1 mg INHALATION RT-BID ml 04/11/22 Folic Acid 1 mg PO DAILY@1200 tab 04/11/22 Ipratropium-Albuterol Nebulize 3 ml INHALATION RT-TID PRN each 04/11/22 [Duoneb 0.5 mg-3 mg/3 ml Soln] Magnesium Oxide [Mag-Ox] 400 mg PO BID #14 tablet 04/11/22 Metoprolol Succinate (ER) [Toprol 50 mg PO BID tab 04/11/22 XL] Multivitamins, Thera [Multivitamin 1 each PO DAILY@1200 tab 04/11/22 (formulary)] Nicotine 21Mg/24Hr Patch [Habitrol] 1 patch TRANSDERM DAILY #0 patch 04/11/22 Thiamine [Vitamin B-1] 100 mg PO DAILY tab 04/11/22 Allergies Allergy/AdvReac Type Severity Reaction Status Date / Time No Known Allergies Allergy Verified 04/16/22 12:54 Review of Systems ROS Statement: Those systems with pertinent positive or pertinent negative responses have been documented in the HPI. ROS Other: All systems not noted in ROS Statement are negative. Past Medical History Past Medical History: Hypertension Additional Past Medical History / Comment(s): pt states she does not have a history of diabetes History of Any Multi-Drug Resistant Organisms: None Reported Past Surgical History: Section Additional Past Surgical History / Comment(s): vain stripping left leg Past Psychological History: Anxiety, Depression Smoking Status: Current every day smoker Past Alcohol Use History: Occasional Additional Past Alcohol Use History / Comment(s): pt denies any alcohol use at this time, states she is an occasional drinker for special events Past Drug Use History: None Reported - Past Family History Mother Family Medical History: No Reported History Additional Family Medical History / Comment(s): at 80 years old of old age Father Family Medical History: No Reported History Additional Family Medical History / Comment(s): at 85 years old of old age General Exam - General Exam Comments Initial Comments: This is a well-developed frail-appearing female who is awake alert oriented 4 General appearance: alert, in no apparent distress Head exam: Present: atraumatic, normocephalic, normal inspection Eye exam: Present: normal appearance, PERRL, EOMI. Absent: scleral icterus, conjunctival injection, periorbital swelling ENT exam: Present: normal exam, mucous membranes moist Neck exam: Present: normal inspection, full ROM, other. Absent: tenderness, meningismus, lymphadenopathy Respiratory exam: Present: normal lung sounds bilaterally, chest wall tenderness (No stridor JVD or bruits palpation on the inferior aspects of the right and left costal sternal margins no step-off no crepitation mild epigastric discomfort also with palpation no guarding rebound masses or bruits). Absent: respiratory distress, wheezes, rales, rhonchi, stridor Cardiovascular Exam: Present: regular rate, normal rhythm, normal heart sounds. Absent: systolic murmur, diastolic murmur, rubs, gallop, clicks GI/Abdominal exam: Present: soft, normal bowel sounds. Absent: distended, tenderness, guarding, rebound, rigid Extremities exam: Present: normal inspection, full ROM, normal capillary refill. Absent: tenderness, pedal edema, joint swelling, calf tenderness Back exam: Present: normal inspection Neurological exam: Present: alert, oriented X3, CN II-XII intact Psychiatric exam: Present: normal affect, normal mood Skin exam: Present: warm, dry, intact, normal color. Absent: rash Course Vital Signs 04/16/22 04/16/22 12:42 13:48 Temperature 98.2 F 98 F Pulse Rate 57 L 52 L Respiratory 16 16 Rate Blood Pressure 129/67 147/76 O2 Sat by Pulse 93 L 97 Oximetry Chest Pain MDM - MDM Imaging reviewed no acute processes seen question small effusion review of old imaging showed possibility of left side neoplasm. Please see the complete report at this time the pain the patient present with appears to be musculoskeletal costochondritic no evidence of acute cardiac event at this time Disposition Clinical Impression: Costochondritis, Chest wall syndrome, Dehydration Disposition: HOME SELF-CARE Condition: Good Instructions (If sedation given, give patient instructions): Costochondritis (ED), Dehydration (ED) Is patient prescribed a controlled substance at d/c from ED?: No Referrals: Janel Bailey MD [Primary Care Provider] - 1-2 days Decision Date: 04/16/22 Decision Time: 15:19
[2022-04-16 13:25] LABS: Basophils # (A) 0.1 k/uL (0-0.2); Basophils % (A) 1 %; Eosinophils # (A) 0.1 k/uL (0-0.7); Eosinophils % (A) 2 %; HCT 38.5 % (34.0-46.0); HGB 12.3 gm/dL (11.4-16.0); Hypochromasia Slight; Lymphocytes # (A) 1.5 k/uL (1.0-4.8); Lymphocytes % (A) 24 %; MCH 30.1 pg (25.0-35.0); MCHC 31.9 g/dL (31.0-37.0); MCV 94.5 fL (80.0-100.0); Monocytes # (A) 0.2 k/uL (0-1.0); Monocytes % (A) 3 %; Neutrophils % (A) 66 %; Platelet Count 330 k/uL (150-450); RBC 4.08 m/uL (3.80-5.40); RDW 13.3 % (11.5-15.5)
--- NOTE | 2022-04-16 13:31 | XR ---
EXAMINATION TYPE: XR chest 2V DATE OF EXAM: 04/16/2022 COMPARISON: This x-ray 04/10/2022 HISTORY: Chest pain TECHNIQUE: Frontal and lateral views of the chest are obtained. FINDINGS: There is no focal air space opacity or pneumothorax seen. Blunting the right costophrenic angle is stable. Aorta is dense. There are overlying leads. Prominent lung volumes with flattening he midiaphragms is consistent with COPD. The cardiac silhouette size is within normal limits. No rib fra ctures are evident. IMPRESSION: Difficult to exclude small effusion although the findings may be related to postinflamma tory change, hyperinflation may give the appearance of blunting the costophrenic angle however. There is underlying emphysema. Bone scan could be performed to assess for occult fractures.
[2022-04-16 13:39] LABS: Partial Thromboplastin Time 22.6 sec (22.0-30.0); Prothrombin Time 10.5 sec (9.0-12.0)
[2022-04-16 13:42] LABS: ALT 19 U/L (4-34); AST 26 U/L (14-36); African American GFR (CKD) >90 (>60 ml/min/1.73 sqM); Albumin 3.1 g/dL (3.5-5.0); Alkaline Phosphatase 77 U/L (38-126); Anion Gap 5 mmol/L; Blood Urea Nitrogen 21 mg/dL (7-17); Calcium 8.5 mg/dL (8.4-10.2); Carbon Dioxide 35 mmol/L (22-30); Chloride 94 mmol/L (98-107); Glucose 139 mg/dL (74-99); Lipase 292 U/L (23-300); Non-African American GFR(CKD) 87 (>60 ml/min/1.73 sqM); Potassium 3.6 mmol/L (3.5-5.1); Sodium 134 mmol/L (137-145); Total Bilirubin 0.2 mg/dL (0.2-1.3); Total Protein 5.9 g/dL (6.3-8.2)
[2022-04-16 14:11] LABS: Appearance,Urine Cloudy (Clear); Bilirubin,Urine Negative (Negative); Blood,Urine Negative (Negative); Budding Yeast,Urine Few /hpf; Color,Urine Yellow; Glucose,Urine (UA) Negative (Negative); Ketones,Urine Negative (Negative); Leukocyte Esterase,Urine Small (Negative); Mucus,Urine Rare /hpf; Nitrite,Urine Negative (Negative); PH, Urine 5.5 (5.0-8.0); Protein,Urine 1+ (Negative); RBC,Urine 9 /hpf (0-5); Squamous Epithelial Cell,Urine 5 /hpf (0-4); Urobilinogen,Urine <2.0 mg/dL (<2.0); WBC,Urine 5 /hpf (0-5)
[2022-04-16 15:59] VITALS: BP 109/70; PULSE 88; RESP 18; TEMP 98.2
== END 2022-04-16 15:58 | disposition home or self-care (01) ==
LOC: EC 12:36
DX: M94.0 Chondrocostal junction syndrome [Tietze] (principal); R07.1 Chest pain on breathing; E86.0 Dehydration; I10 Essential (primary) hypertension; F41.9 Anxiety disorder, unspecified; F32.A Depression, unspecified; F17.200 Nicotine dependence, unspecified, uncomplicated; Z79.899 Other long term (current) drug therapy; Z79.811 Long term (current) use of aromatase inhibitors; Z79.51 Long term (current) use of inhaled steroids
CPT/HCPCS: 36415; 71046; 80053; 81001; 83690; 83735; 83880; 84484; 85025; 85610; 85730; 93005; 99285

== ENCOUNTER 2023-05-06 13:58 | Inpatient (IN) | payer MEDICARE ==
[2023-05-06] MEDS ORDERED: methylPREDNISolone SOD SUCCI 125 MG/2 ML VIAL IV STA (14:29)
[2023-05-06] MEDS ORDERED: MAGNESIUM SULFATE-D5W PMX 1 GM in DEXTROSE/WATER 1 100ML.BAG IVPB STA (14:29)
[2023-05-06] MEDS ORDERED: SODIUM CHLORIDE 0.9% 1,000 ML IV STA (14:29)
[2023-05-06] MEDS ORDERED: IPRATROPIUM-ALBUTEROL 3 ML NEB INHALATION STA ×2 (14:29→16:08)
--- NOTE | 2023-05-06 15:07 | XR ---
EXAMINATION TYPE: XR chest 1V portable DATE OF EXAM: 05/06/2023 COMPARISON: 04/07/2022 HISTORY: Shortness of breath TECHNIQUE: Single frontal view of the chest is obtained. FINDINGS: There is hyperinflation of the lungs, flattening of the diaphragms and moderate interstitial opacitie s in the lung bases. The findings suggest presence of marked COPD with interstitial scarring or fibro sis.. There is no airspace/consolidative opacity to suggest acute pneumonia or edema. Heart size is normal and the pulmonary vasculature is not congested. The osseous structures are intact IMPRESSION: 1. No definite acute cardiopulmonary disease. 2. Marked COPD
--- NOTE | 2023-05-06 15:30 | XR ---
Bilateral knees. HISTORY: Pain following trauma COMPARISON: Left knee dated 12/11/2021. TECHNIQUE: 4 views are obtained with 2 views each knee. FINDINGS: There is moderate diffuse osteopenia but there is no fracture or focal intraosseous abnormality. There are no joint effusions. There is moderate osteophytic change of all 3 compartments of both kne es. 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 IMPRESSION: 1. Moderate diffuse osteopenia. 2. no evidence of acute trauma. 3. Moderate to marked 3 compartment degenerative disease secondary to calcium pyrophosphate disease a nd chondrocalcinosis.
[2023-05-06 15:58] LABS: Basophils % (A) 0 %; Eosinophils % (A) 0 %; HCT 48.1 % (34.0-46.0); HGB 15.4 gm/dL (11.4-16.0); Lymphocytes # (A) 0.9 k/uL (1.0-4.8); Lymphocytes % (A) 6 %; MCH 29.2 pg (25.0-35.0); MCHC 32.1 g/dL (31.0-37.0); MCV 91.1 fL (80.0-100.0); Mean Platelet Volume 7.2; Monocytes # (A) 0.6 k/uL (0-1.0); Monocytes % (A) 4 %; Neutrophils % (A) 88 %; Platelet Count 318 k/uL (150-450); RBC 5.27 m/uL (3.80-5.40); RDW 13.9 % (11.5-15.5); WBC 14.8 k/uL (3.8-10.6)
[2023-05-06 16:06] LABS: Prothrombin Time 11.3 sec (10.0-12.5)
[2023-05-06] MEDS ORDERED: diphenhydrAMINE 25 MG CAP PO STA (17:15)
[2023-05-06 17:46] LABS: ALT 18 U/L (4-34); AST 24 U/L (14-36); African American GFR (CKD) >90 (>60 ml/min/1.73 sqM); Albumin 3.8 g/dL (3.5-5.0); Alkaline Phosphatase 92 U/L (38-126); Anion Gap 11 mmol/L; Blood Urea Nitrogen 25 mg/dL (7-17); Calcium 8.7 mg/dL (8.4-10.2); Carbon Dioxide 26 mmol/L (22-30); Chloride 104 mmol/L (98-107); Creatine Kinase 48 U/L (30-135); Glucose 120 mg/dL (74-99); Non-African American GFR(CKD) 89 (>60 ml/min/1.73 sqM); Potassium 3.1 mmol/L (3.5-5.1); Sodium 141 mmol/L (137-145); Total Bilirubin 0.6 mg/dL (0.2-1.3); Total Protein 7.2 g/dL (6.3-8.2)
[2023-05-06] MEDS ORDERED: NALOXONE 0.4 MG/ML 1 ML VIAL IV PRN (17:50)
[2023-05-06] MEDS ORDERED: POTASSIUM CHLORIDE ER 20 MEQ TAB.ER PO STA (17:50)
--- NOTE | 2023-05-06 17:56 | ED ---
General Adult HPI - General Chief complaint: Shortness of Breath Stated complaint: SOB Time Seen by Provider: 05/06/23 14:07 Source: patient, RN notes reviewed, old records reviewed Mode of arrival: EMS Limitations: no limitations - History of Present Illness Initial comments: Patient is a 73-year-old female presents as a department for dyspnea and shor tness of breath. He has a history of COPD not normally on oxygen. Is not on blood thinners. No cardiac history. Has a history of hypertension. Is on breathing treatments daily. Still smokes cigarettes. States she fell earlier this morning and was unable to get up. This is when EMS was called. States she has been on the ground for a few hours. The short of breath. Presents for further evaluation. Is complaining of bilateral knee pain which is somewhat chronic. No other obvious complaints at this time. He presents for further evaluation at this time. Does endorse some shortness of breath, endorses a cough. No significant production of mucus. Denies chest pain or abdominal pain . Denies nausea, vomiting, diarrhea. Has no other acute complaints at this time. Not on home oxygen for copd. - Related Data Home Medications Medication Instructions Recorded Confirmed Citalopram Hydrobromide 20 mg PO DAILY 10/15/20 05/06/23 [Citalopram HBr] Losartan Potassium [Cozaar] 50 mg PO BID 10/15/20 05/06/23 Albuterol Sulfate [Albuterol 2 puff PO RT-QID PRN 05/06/23 05/06/23 Sulfate Hfa] Budesonide [Pulmicort] 0.5 mg INHALATION RT-BID 05/06/23 05/06/23 Dailyvite 1 tab PO DAILY 05/06/23 05/06/23 Metoprolol Succinate (ER) [Toprol 100 mg PO DAILY 05/06/23 05/06/23 Xl] Previous Rx's Medication Instructions Recorded Magnesium Oxide [Mag-Ox] 400 mg PO BID #14 tablet 04/11/22 Allergies Allergy/AdvReac Type Severity Reaction Status Date / Time No Known Allergies Allergy Verified 05/06/23 16:57 Review of Systems ROS Statement: Those systems with pertinent positive or pertinent negative responses have been documented in the HPI. Review of Systems: CONST: Denies fever EYES: Denies blurry vision ENT: Denies nasal congestion C/V: Denies Chest pain RESP: Endorses dyspnea GI: Denies abdominal pain : Denies dysuria SKIN: Denies rash. MSK: Denies joint pain. NEURO: Denies headache ROS Other: All systems not noted in ROS Statement are negative. Past Medical History Past Medical History: Hypertension Additional Past Medical History / Comment(s): pt states she does not have a history of diabetes History of Any Multi-Drug Resistant Organisms: None Reported Past Surgical History: Section Additional Past Surgical History / Comment(s): vain stripping left leg Past Psychological History: Anxiety, Depression Smoking Status: Current every day smoker Past Alcohol Use History: Occasional Past Drug Use History: None Reported - Past Family History Mother Family Medical History: No Reported History Additional Family Medical History / Comment(s): at 80 years old of old age Father Family Medical History: No Reported History Additional Family Medical History / Comment(s): at 85 years old of old age General Exam - General Exam Comments Initial Comments: General: Appears in mild respiratory distress. HEAD: Normal with no signs of head trauma. EYES: PERRLA, EOMI, conjunctiva normal, no discharge. ENT: Hearing grossly intact, normal oropharynx. RESPIRATORY: Bilateral end expiratory wheezing, reduced breath sounds. Hypoxic on room air to 80-85%. Increased work of breathing. C/V: Regular rate and rhythm. S1 and S2 auscultated, peripheral pulses 2+ and intact throughout ABD: Abd is soft, nontender, nondistended EXT: Normal range of motion, no obvious deformity SKIN: No rashes or lesions observed on exposed skin. NEURO: Alert and oriented x 4. Limitations: no limitations Course Vital Signs 05/06/23 05/06/23 05/06/23 14:04 14:58 15:31 Temperature 98.3 F Pulse Rate 98 98 Respiratory 28 H Rate Blood Pressure 144/104 O2 Sat by Pulse 92 L Oximetry Fraction of 35 Inspired Oxygen (FIO2) 05/06/23 05/06/23 05/06/23 15:34 15:35 17:07 Temperature Pulse Rate 98 79 Respiratory 34 H 34 H Rate Blood Pressure 148/76 175/81 O2 Sat by Pulse 93 L 96 Oximetry Fraction of 35 Inspired Oxygen (FIO2) 05/06/23 05/06/23 05/06/23 17:19 17:25 18:12 Temperature 98.0 F Pulse Rate 74 72 75 Respiratory 33 H Rate Blood Pressure 149/80 O2 Sat by Pulse 96 Oximetry Fraction of Inspired Oxygen (FIO2) 05/06/23 18:48 Temperature Pulse Rate 77 Respiratory 18 Rate Blood Pressure 148/79 O2 Sat by Pulse 97 Oximetry Fraction of Inspired Oxygen (FIO2) Medical Decision Making - Medical Decision Making Was pt. sent in by a medical professional or institution (, PA, SENIOR MARKETING DATA ANALYST, urgent care, hospital, or detention...) When possible be specific @ -No Did you speak to anyone other than the patient for history (EMS, parent, family, police, friend...)? What history was obtained from this source @ -Patient's son and daughter present at bedside and helped the patient's past medical history. They revealed to me the patient was recently taken off of Xanax and has a history of the suspected addiction to it. They request that no benzos be administered to the patient. Did you review nursing and triage notes (agree or disagree)? Why? @ -I reviewed and agree with nursing and triage notes Were old charts reviewed (outside hosp., previous admission, EMS record, old EKG, old radiological studies, urgent care reports/EKG's, detention records)? Report findings @ -Old charts reviewed Differential Diagnosis (chest pain, altered mental status, abdominal pain women, abdominal pain men, vaginal bleeding, weakness, fever, dyspnea, syncope, headache, dizziness, GI bleed, back pain, seizure, CVA, palpatations, mental health, musculoskeletal)? @ -Differential Dyspnea: Coronary syndrome, arrhythmia, tamponade, asthma, COPD, pulmonary embolism, pneumonia, pneumothorax, pulmonary effusion, anaphylaxis, diabetic ketoacidosis, flailed chest, pulmonary contusion, diaphragmatic rupture, anemia, neuromuscular, this is not meant to be an all-inclusive list. EKG interpreted by me (3pts min.). @ -As above X-rays interpreted by me (1pt min.). @ -X-ray shows no obvious acute cardio pulmonary process. Knee x-rays reveal no obvious acute injury. CT interpreted by me (1pt min.). @ -None done U/S interpreted by me (1pt. min.). @ -None done What testing was considered but not performed or refused? (CT, X-rays, U/S, labs)? Why? @ -None What meds were considered but not given or refused? Why? @ -None Did you discuss the management of the patient with other professionals (pro fessionals i.e. , PA, SENIOR MARKETING DATA ANALYST, lab, RT, psych nurse, addiction social worker, closing manager, teacher, correction officer, bilingual case manager)? Give summary @ -Discuss with Dr. Castelan who accepted the admission. Discussed with RT who was in agreement with BiPAP administration we'll continue to monitor. Was smoking cessation discussed for >3mins.? @ -No Was critical care preformed (if so, how long)? @ -Yes, 43 minutes. Were there social determinants of health that impacted care today? How? (Homelessness, low income, unemployed, alcoholism, drug addiction, transportation, low edu. Level, literacy, decrease access to med. care, fpc, rehab)? @ -No Was there de-escalation of care discussed even if they declined (Discuss DNR or withdrawal of care, Hospice)? DNR status @ -No What co-morbidities impacted this encounter? (DM, HTN, Smoking, COPD, CAD, Cancer, CVA, ARF, Chemo, Hep., AIDS, mental health diagnosis, sleep apnea, morbid obesity)? @ -copd Was patient admitted / discharged? Hospital course, mention meds given and route, prescriptions, significant lab abnormalities, going to OR and other pertinent info. @ -Based on the patient's presentation and physical exam, patient presents for hypoxic respiratory failure as well as knee pain from falling. Did not hit her head. No loss of consciousness. We will obtain cardio pulmonary workup. X- rays of the knees, chest, EKG also obtained. Patient has significant increased work of breathing and will be placed on BiPAP for this as she is also hypoxic and requiring at least 3 L nasal cannula. She was in agreement this plan. Patient will be given breathing treatments, IV steroids, IV magnesium, IV fluids. Patient in agreement this plan. Imaging unremarkable other than COPD on chest x-ray. EKG shows no signs of i schemia. Patient's laboratory studies remarkable for was likely reactive leukocytosis of 14. Mild hypokalemia at 3.1 which was replenished. Viral swabs negative. At this time, patient is feeling improved. We were able to transition her off of BiPAP following multiple breathing treatments. She is saturating well and work of breathing is also improved at this time. She will be admitted to the hospital for hypoxic respiratory failure with BiPAP when necessary. She was in agreement this plan. Discussed the case with the admitting team, Dr. Castelan who accepted the patient. Pulmonology consulted. Undiagnosed new problem with uncertain prognosis? @ -No Drug Therapy requiring intensive monitoring for toxicity (Heparin, Nitro, Insulin, Cardizem)? @ -No Were any procedures done? @ -No Diagnosis/symptom? @ -COPD resulting in hypoxic respiratory failure requiring noninvasive positive pressure ventilation Acute, or Chronic, or Acute on Chronic? @ -Acute Uncomplicated (without systemic symptoms) or Complicated (systemic symptoms)? @ -Compensated Side effects of treatment? @ -No Exacerbation, Progression, or Severe Exacerbation? @ -Exacerbation Poses a threat to life or bodily function? How? (Chest pain, [place], [place], pneumonia, PE, COPD, DKA, ARF, appy, cholecystitis, CVA, Diverticulitis, Homicidal, Suicidal, threat to staff... and all critical care pts) @ -Yes Diagnosis/symptom? @ -Hypokalemia Acute, or Chronic, or Acute on Chronic? @ -Acute Uncomplicated (without systemic symptoms) or Complicated (systemic symptoms)? @ -Uncomplicated Side effects of treatment? @ -none Exacerbation, Progression, or Severe Exacerbation] @ -no Poses a threat to life or bodily function? @ - Unlikely - Lab Data Result diagrams: 05/06/23 15:39 05/06/23 17:20 Lab Results 05/06/23 05/06/23 05/06/23 Range/Units 15:39 15:39 15:39 WBC 14.8 H (3.8-10.6) k/uL RBC 5.27 (3.80-5.40) m/uL Hgb 15.4 (11.4-16.0) gm/dL Hct 48.1 H (34.0-46.0) % MCV 91.1 (80.0-100.0) fL MCH 29.2 (25.0-35.0) pg MCHC 32.1 (31.0-37.0) g/dL RDW 13.9 (11.5-15.5) % Plt Count 318 (150-450) k/uL MPV 7.2 Neutrophils % 88 % Lymphocytes % 6 % Monocytes % 4 % Eosinophils % 0 % Basophils % 0 % Neutrophils # 13.0 H (1.3-7.7) k/uL Lymphocytes # 0.9 L (1.0-4.8) k/uL Monocytes # 0.6 (0-1.0) k/uL Eosinophils # 0.0 (0-0.7) k/uL Basophils # 0.0 (0-0.2) k/uL PT 11.3 (10.0-12.5) sec INR 1.0 (<1.2) APTT 25.0 (22.0-30.0) sec Sodium (137-145) mmol/L Potassium (3.5-5.1) mmol/L Chloride (98-107) mmol/L Carbon Dioxide (22-30) mmol/L Anion Gap mmol/L BUN (7-17) mg/dL Creatinine (0.52-1.04) mg/dL Est GFR (CKD-EPI)AfAm (>60 ml/min/1.73 sqM) Est GFR (CKD-EPI)NonAf (>60 ml/min/1.73 sqM) Glucose (74-99) mg/dL Calcium (8.4-10.2) mg/dL Total Bilirubin (0.2-1.3) mg/dL AST (14-36) U/L ALT (4-34) U/L Alkaline Phosphatase (38-126) U/L Creatine Kinase (30-135) U/L Total Protein (6.3-8.2) g/dL Albumin (3.5-5.0) g/dL Influenza Type A (PCR) Not Detected (Not Detectd) Influenza Type B (PCR) Not Detected (Not Detectd) RSV (PCR) Not Detected (Not Detectd) SARS-CoV-2 (PCR) Not Detected (Not Detectd) 05/06/23 Range/Units 17:20 WBC (3.8-10.6) k/uL RBC (3.80-5.40) m/uL Hgb (11.4-16.0) gm/dL Hct (34.0-46.0) % MCV (80.0-100.0) fL MCH (25.0-35.0) pg MCHC (31.0-37.0) g/dL RDW (11.5-15.5) % Plt Count (150-450) k/uL MPV Neutrophils % % Lymphocytes % % Monocytes % % Eosinophils % % Basophils % % Neutrophils # (1.3-7.7) k/uL Lymphocytes # (1.0-4.8) k/uL Monocytes # (0-1.0) k/uL Eosinophils # (0-0.7) k/uL Basophils # (0-0.2) k/uL PT (10.0-12.5) sec INR (<1.2) APTT (22.0-30.0) sec Sodium 141 (137-145) mmol/L Potassium 3.1 L (3.5-5.1) mmol/L Chloride 104 (98-107) mmol/L Carbon Dioxide 26 (22-30) mmol/L Anion Gap 11 mmol/L BUN 25 H (7-17) mg/dL Creatinine 0.61 (0.52-1.04) mg/dL Est GFR (CKD-EPI)AfAm >90 (>60 ml/min/1.73 sqM) Est GFR (CKD-EPI)NonAf 89 (>60 ml/min/1.73 sqM) Glucose 120 H (74-99) mg/dL Calcium 8.7 (8.4-10.2) mg/dL Total Bilirubin 0.6 (0.2-1.3) mg/dL AST 24 (14-36) U/L ALT 18 (4-34) U/L Alkaline Phosphatase 92 (38-126) U/L Creatine Kinase 48 (30-135) U/L Total Protein 7.2 (6.3-8.2) g/dL Albumin 3.8 (3.5-5.0) g/dL Influenza Type A (PCR) (Not Detectd) Influenza Type B (PCR) (Not Detectd) RSV (PCR) (Not Detectd) SARS-CoV-2 (PCR) (Not Detectd) - EKG Data -: EKG Interpreted by Me EKG Comments: 12-lead Electrocardiogram Interpretation Note EKG was reviewed and interpreted by myself. 12-lead ECG performed at 1704 is interpreted by me as revealing normal sinus rhythm at a rate of 73 beats per minute. [place] is normal. QRS duration is 80 ms, QTc is 420 ms. A good amount of baseline artifact. There were no ST or T wave abnormalities to suggest myocardial ischemia or injury. R wave progression across the precordium was satisfactory. By my interpretation this EKG is non-diagnostic for acute ischemia. Critical Care Time Critical Care Time: Yes Total Critical Care Time: 43 Disposition Clinical Impression: COPD (chronic obstructive pulmonary disease), Hypoxic respiratory failure, Hypokalemia Disposition: ADMITTED IP TO THIS HOSP Condition: Stable Time of Disposition: 17:35
[2023-05-06] MEDS: SODIUM CHLORIDE 0.9% 1,000 ML IV SCH (18:14)
[2023-05-06] MEDS ORDERED: IPRATROPIUM-ALBUTEROL 3 ML NEB INHALATION PRN (19:37)
[2023-05-06] MEDS ORDERED: IPRATROPIUM-ALBUTEROL 3 ML NEB INHALATION SCH (20:00)
[2023-05-06] MEDS: LOSARTAN 50 MG TAB PO SCH (20:14)
[2023-05-06] MEDS: methylPREDNISolone SOD SUCCI 40 MG/ML 1 ML VIAL IV SCH (20:14)
[2023-05-06] MEDS: MAGNESIUM OXIDE 400 MG TAB PO SCH (20:15)
[2023-05-06] MEDS: HEPARIN SODIUM,PORCINE 5,000 UNIT/ML 1 ML VIAL SQ SCH (20:15)
[2023-05-06] MEDS: IPRATROPIUM-ALBUTEROL 3 ML NEB INHALATION SCH (20:17)
[2023-05-06] MEDS: BUDESONIDE 0.5 MG/2 ML NEBU INHALATION SCH (20:17)
--- NOTE | 2023-05-07 03:23 | P.CNPUL ---
History of Present Illness Consult date: 05/07/23 Requesting physician: Genaro Catherine Reason for consult: COPD Chief complaint: Fall, shortness of breath History of present illness: I am seeing this patient in new consultation today 05/07/2023 for suspected acute COPD exacerbation. Patient is a 73-year-old white female with past medical history significant for COPD, chronic ongoing tobacco dependence, previous right-sided pneumothorax, hypertension, anxiety and depression. Her PCP is Dr. Janel Bailey. Patient was at home, when she reportedly fell and was unable to get up. She denies hitting her head. She called EMS, and on arrival to the emergency room, the patient was found to be in some respiratory distress. She was initially placed on BiPAP with settings 10/5 and an FiO2 of 35%. Chest x-ray on arrival did not show any focal infiltrates or evidence of pneumonia. Did show some chronic scarring/fibrosis. Patient is currently sitting up in bed, on 3 L per minute nasal cannula, in no acute distress. She does report progressively worsening shortness of breath and an associated nonproductive cough over the last 2 days. She denies any fevers, sputum production, chest congestion, chest tightness/pain, wheezing. She denies any sick contacts. On my evaluation, patient states she is feeling much better. Not in any res piratory distress. She has already been started on a combination of DuoNeb's, budesonide inhalation, and IV Solu Medrol. CBC on arrival shows leukocytosis with a WBC count of 14.8, hemoglobin 15.4, hematocrit 48.1, platelets 318. BMP on arrival showed a sodium 141, potassium 3.1, chloride 104, serum bicarb 26, BUN 25, creatinine 0.61, glucose 120. Troponin not elevated. D-dimer was elevated at 4.1. Negative for influenza, RSV, COVID-19. Afebrile. Vital signs are stable. She is being monitored on the cardiac stepdown unit. Review of Systems REVIEW OF SYSTEMS: CONSTITUTIONAL: Denies any recent significant weight loss or weight gain. EYES: Denies change in vision. EARS, NOSE, MOUTH, THROAT: Denies headaches, denies sore throat. CARDIOVASCULAR: Denies chest pain, palpitations or syncopal episodes. RESPIRATORY: See HPI. GASTROINTESTINAL: Denies change in appetite, abdominal pain, nausea and vomiting, or diarrhea GENITOURINARY: Denies hematuria, denies infections. MUSKULOSKELETAL: Denies pain, denies swelling. Admits bilateral knee pain INTEGUMENTARY: Denies rash, denies eczema. NEUROLOGICAL: Denies recent memory loss, no recent seizure activity. PSYCHIATRIC: Denies anxiety, denies depression. HEMATOLOGIC/LYMPHATIC: Denies anemia, denies enlarged lymph node Past Medical History Past Medical History: COPD, Hypertension Additional Past Medical History / Comment(s): [facility] History of Any Multi-Drug Resistant Organisms: None Reported Past Surgical History: Section Additional Past Surgical History / Comment(s): vain stripping left leg Past Anesthesia/Blood Transfusion Reactions: No Reported Reaction Past Psychological History: Anxiety, Depression Smoking Status: Current every day smoker Past Alcohol Use History: None Reported Additional Past Alcohol Use History / Comment(s): Pt states she has not had alcohol in 2 years. Past Drug Use History: None Reported - Past Family History Mother Family Medical History: No Reported History Additional Family Medical History / Comment(s): at 80 years old of old age. Father Family Medical History: No Reported History Additional Family Medical History / Comment(s): at 85 years old of old age. Medications and Allergies Home Medications Medication Instructions Recorded Confirmed Type Citalopram Hydrobromide 20 mg PO DAILY 10/15/20 05/06/23 History [Citalopram HBr] Losartan Potassium [Cozaar] 50 mg PO BID 10/15/20 05/06/23 History Magnesium Oxide [Mag-Ox] 400 mg PO BID #14 tablet 04/11/22 05/06/23 Rx Albuterol Sulfate [Albuterol 2 puff PO RT-QID PRN 05/06/23 05/06/23 History Sulfate Hfa] Budesonide [Pulmicort] 0.5 mg INHALATION RT-BID 05/06/23 05/06/23 History Dailyvite 1 tab PO DAILY 05/06/23 05/06/23 History Metoprolol Succinate (ER) [Toprol 100 mg PO DAILY 05/06/23 05/06/23 History Xl] Allergies Allergy/AdvReac Type Severity Reaction Status Date / Time No Known Allergies Allergy Verified 05/06/23 16:57 Physical Exam Vitals: Vital Signs Temp Pulse Pulse Resp BP BP Pulse Ox 05/06/23 23:41 98.0 F 67 20 133/71 94 L 05/06/23 21:51 82 22 137/76 96 05/06/23 21:04 22 97 05/06/23 20:34 80 05/06/23 20:18 79 05/06/23 20:10 76 22 142/77 94 L 05/06/23 18:48 77 18 148/79 97 05/06/23 18:12 98.0 F 75 33 H 149/80 96 05/06/23 17:25 72 05/06/23 17:19 74 05/06/23 17:07 79 34 H 175/81 96 05/06/23 15:35 05/06/23 15:34 98 34 H 148/76 93 L 05/06/23 15:31 05/06/23 14:58 98 05/06/23 14:04 98.3 F 98 28 H 144/104 92 L FiO2 05/06/23 23:41 05/06/23 21:51 05/06/23 21:04 05/06/23 20:34 05/06/23 20:18 05/06/23 20:10 05/06/23 18:48 05/06/23 18:12 05/06/23 17:25 05/06/23 17:19 05/06/23 17:07 05/06/23 15:35 35 05/06/23 15:34 05/06/23 15:31 35 05/06/23 14:58 05/06/23 14:04 Intake and Output 05/06/23 05/06/23 05/07/23 14:59 22:59 06:59 Intake Total 20 20 Balance 20 20 Intake: IV 20 20 Invasive Line 1 10 10 Invasive Line 2 10 10 Other: Voiding Method Diaper External Catheter # Voids 1 Weight 41.73 kg 41.73 kg GENERAL EXAM: Alert, 73-year-old white female appearing stated age , comfortable in no apparent distress. HEAD: Normocephalic and atraumatic EYES: Normal reaction of pupils, equal size. NOSE: Clear with pink turbinates. THROAT: No erythema or exudates. NECK: No masses, no JVD. CHEST: No chest wall deformity. LUNGS: Equal air entry with diminished lung sounds throughout. No wheezes, rhonchi, crackles, or focal consolidation. On 3 L/m nasal cannula. No conversational dyspnea or accessory muscle use.. CVS: S1 and S2 normal with no audible murmur, regular rhythm. No extra heart sounds ABDOMEN: No hepatosplenomegaly, active bowel sounds, no guarding or rigidity. SPINE: No scoliosis or deformity SKIN: No rashes CENTRAL NERVOUS SYSTEM: No focal deficits, tone is normal in all 4 extremities. EXTREMITIES: There is no peripheral edema, clubbing, or cyanosis. Peripheral pulses are intact. Results - Laboratory Findings CBC and BMP: 05/06/23 15:39 05/06/23 17:20 PT/INR, D-dimer PT 11.3 sec (10.0-12.5) 05/06/23 15:39 INR 1.0 (<1.2) 05/06/23 15:39 D-Dimer 4.10 mg/L FEU (<0.60) H 05/06/23 23:50 Abnormal lab findings: Abnormal Labs 05/06/23 05/06/23 05/06/23 15:39 17:20 23:50 WBC 14.8 H Hct 48.1 H Neutrophils # 13.0 H Lymphocytes # 0.9 L D-Dimer 4.10 H Potassium 3.1 L BUN 25 H Glucose 120 H - Diagnostic Findings Chest x-ray: image reviewed Assessment and Plan Assessment: Acute hypoxemic respiratory failure, currently on 3 L/m nasal cannula, secondary to suspected acute COPD exacerbation. Chest x-ray on arrival did not show any f ocal infiltrates or evidence of pneumonia. Negative for influenza, RSV, COVID- 19. Chronic ongoing tobacco dependence Fall Leukocytosis Elevated d-dimer Hypokalemia, being replaced History of previous traumatic right-sided pneumothorax Benign essential hypertension History of anxiety/depression Plan: Patient's medications, labs, chest x-ray reviewed Continue supplemental oxygen Patient states that she is already feeling improved Continue combination of DuoNeb's, budesonide, formoterol, and IV solu Medrol Obtain chest CTA to rule out pulmonary embolism, d-dimer elevated at 4.1 Smoking cessation counseling performed Nicotine replacement offered Fall precautions Repeat labs in the morning We will continue to follow, and further recommendations are forthcoming I have personally seen and examined the patient, performed the documentation and the assessment and plan as written. Number of minutes spent on the visit:20 Time with Patient: Greater than 30
--- NOTE | 2023-05-07 04:59 | CT ---
EXAM: CT Angiography Chest With Intravenous Contrast CLINICAL HISTORY: ITS.REASON CT Reason: rule out PE TECHNIQUE: Axial computed tomographic angiography images of the chest with intravenous contrast. CTDI is 20.9 mGy and DLP is 192.9 mGy-cm. This CT exam was performed using one or more of the following dose reduction techniques: automated exposure control, adjustment of the mA and/or kV according to patient size, and/or use of iterative reconstruction technique. MIP reconstructed images were created and reviewed. COMPARISON: No relevant prior studies available. FINDINGS: Pulmonary arteries: Motion artifact limits evaluation. Despite this, no evidence of pulmonary embolism within the primary outflow tract or immediate proximal branches. Aorta: No acute findings. No thoracic aortic aneurysm. Lungs: Left lower lobe airspace disease which may be due to infection/aspiration changes. Associated with this is occluded left lower lobe bronchi. Additional occluded bronchus within the posterior segment of the right lower lobe with debris. This also likely relates to infection/aspiration changes. Severe upper lobe centrilobular emphysema. No mass. Pleural space: Unremarkable. No significant effusion. No pneumothorax. Heart: Coronary artery calcifications. No significant pericardial effusion. No evidence of RV dysfunction. Bones/joints: Degenerative changes in the spine. L2 compression fracture with more than 50% vertebral body height loss. Consider correlation with point tenderness. If there is further concern, consider MRI. No dislocation. Soft tissues: Unremarkable. Lymph nodes: Unremarkable. No enlarged lymph nodes. Kidneys and ureters: Simple bilateral renal cysts. No follow-up of these simple cysts is necessary. IMPRESSION: 1. Motion artifact limits evaluation. Despite this, no evidence of pulmonary embolism within the primary outflow tract or immediate proximal branches. 2. Left lower lobe airspace disease which may be due to infection/aspiration changes. Associated with this is occluded left lower lobe bronchi. Additional occluded bronchus within the posterior segment of the right lower lobe with debris. This also likely relates to infection/aspiration changes. 3. L2 compression fracture with more than 50% vertebral body height loss. Consider correlation with point tenderness. If there is further concern, consider MRI. 4. No other acute findings. 5. Incidental findings as described.
[2023-05-07] MEDS: SODIUM CHLORIDE 0.9% 1,000 ML IV SCH ×2 (06:20→15:11)
[2023-05-07] MEDS: AZITHROMYCIN 500 MG in SODIUM CHLORIDE 0.9% 250 ML IVPB SCH (06:50)
[2023-05-07 08:57] LABS: Basophils % (A) 0 %; Eosinophils % (A) 0 %; HCT 41.6 % (34.0-46.0); HGB 12.9 gm/dL (11.4-16.0); Hypochromasia Slight; Lymphocytes # (A) 0.6 k/uL (1.0-4.8); Lymphocytes % (A) 6 %; MCH 29.2 pg (25.0-35.0); MCV 94.1 fL (80.0-100.0); Mean Platelet Volume 7.6; Monocytes # (A) 0.4 k/uL (0-1.0); Monocytes % (A) 4 %; Neutrophils % (A) 90 %; Platelet Count 269 k/uL (150-450); RBC 4.43 m/uL (3.80-5.40); RDW 13.9 % (11.5-15.5)
[2023-05-07 09:08] LABS: African American GFR (CKD) >90 (>60 ml/min/1.73 sqM); Anion Gap 11 mmol/L; Blood Urea Nitrogen 25 mg/dL (7-17); Calcium 8.7 mg/dL (8.4-10.2); Carbon Dioxide 23 mmol/L (22-30); Chloride 108 mmol/L (98-107); Glucose 173 mg/dL (74-99); Non-African American GFR(CKD) >90 (>60 ml/min/1.73 sqM); Potassium 4.2 mmol/L (3.5-5.1); Sodium 142 mmol/L (137-145)
[2023-05-07] MEDS: METOPROLOL SUCCINATE (ER) 100 MG TAB.ER.24H PO SCH (09:13)
[2023-05-07] MEDS: LOSARTAN 50 MG TAB PO SCH ×2 (09:13→19:48)
[2023-05-07] MEDS: CITALOPRAM HYDROBROMIDE 20 MG TAB PO SCH (09:13)
[2023-05-07] MEDS: NICOTINE 21MG/24HR PATCH TRANSDERM SCH (09:13)
[2023-05-07] MEDS: methylPREDNISolone SOD SUCCI 40 MG/ML 1 ML VIAL IV SCH ×2 (09:13→19:49)
[2023-05-07] MEDS: MAGNESIUM OXIDE 400 MG TAB PO SCH ×2 (09:13→19:48)
[2023-05-07] MEDS: HEPARIN SODIUM,PORCINE 5,000 UNIT/ML 1 ML VIAL SQ SCH ×2 (09:13→19:48)
[2023-05-07] MEDS: IPRATROPIUM-ALBUTEROL 3 ML NEB INHALATION SCH ×4 (09:19→20:43)
[2023-05-07] MEDS: BUDESONIDE 0.5 MG/2 ML NEBU INHALATION SCH ×2 (09:19→20:43)
[2023-05-07] MEDS: FORMOTEROL FUMARATE 20 MCG/2 ML NEBU INHALATION SCH ×2 (09:25→20:43)
[2023-05-07] MEDS ORDERED: DEXTROSE 50% SYRINGE 50 ML IVP PRN ×2 (09:29)
--- NOTE | 2023-05-07 10:13 | P.HPIM ---
History of Present Illness 71-year-old pleasant female with known history of COPD doesn't use any oxygen at home still smokes about 1 pack of cigarettes came in with compensative shortness of breath. Patient also has elevated d-dimer. Patient had a CT of the chest which showed some mild nonspecific and we will infiltrates there is no obvious infiltrates Are Consistent with Pneumonia Patient Denied Any Fever Chills Patient Had Leukocytosis. Patient Is Presently on 3 L of Oxygen Patient Has Progressive Shortness of Breath with Nonproductive Cough. Negative for Influenza, RSV, COVID-19. Patient Was Started on Rocephin and Azithromycin, Rocephin Is Being This Can You As There Is No Evidence of Pneumonia. Pro- calcitonin is being obtained along with urinary Legionella antigen azithromycin is being continued. Patient had an elevated d-dimer. Patient had generalized weakness and falls at home. REVIEW OF SYSTEMS: CONSTITUTIONAL: No fever, no malaise, no fatigue. HEENT: No recent visual problems or hearing problems. Denied any sore throat. CARDIOVASCULAR: No chest pain, orthopnea, PND, no palpitations, no syncope. PULMONARY: no hemoptysis. GASTROINTESTINAL: No diarrhea, no nausea, no vomiting, no abdominal pain. NEUROLOGICAL: No headaches, no weakness, no numbness. HEMATOLOGICAL: Denies any bleeding or petechiae. GENITOURINARY: Denies any burning micturition, frequency, or urgency. MUSCULOSKELETAL/RHEUMATOLOGICAL: Denies any joint pain, swelling, or any muscle pain. ENDOCRINE: Denies any polyuria or polydipsia. The rest of the 14-point review of systems is negative. PHYSICAL EXAMINATION: GENERAL: The patient is alert and oriented x3, not in any acute distress. Thin built cachectic female HEENT: Pupils are round and equally reacting to light. EOMI. No scleral icterus. No conjunctival pallor. Normocephalic, atraumatic. No pharyngeal erythema. No thyromegaly. CARDIOVASCULAR: S1 and S2 present. No murmurs, rubs, or gallops. PULMONARY: Decreased air entry without any crackles or wheezing ABDOMEN: Soft, nontender, nondistended, normoactive bowel sounds. No palpable organomegaly. MUSCULOSKELETAL: No joint swelling or deformity. EXTREMITIES: No cyanosis, clubbing, or pedal edema. NEUROLOGICAL: Gross neurological examination did not reveal any focal deficits. Generalized weakness with muscle atrophy SKIN: No rashes. Assessment and plan -Acute hypercapnic respiratory failure: Seconded to COPD exacerbation can he was systemic steroids can you with azithromycin there is no evidence of pneumonia Rocephin will be discontinued -Cachexia, moderate protein calorie malnutrition secondary to COPD and chronic smoking supportive care, high-protein supplements. -Leukocytosis secondary to COPD -Hypertension patient blood pressure is well-controlled with her home regimen which will be continued -Hypokalemia secondary to IV fluids and potassium will be replaced. DVT prophylaxis: Low-dose Lovenox subcutaneous is a daily Past Medical History Past Medical History: COPD, Hypertension Additional Past Medical History / Comment(s): [facility] History of Any Multi-Drug Resistant Organisms: None Reported Past Surgical History: Section Additional Past Surgical History / Comment(s): vain stripping left leg Past Anesthesia/Blood Transfusion Reactions: No Reported Reaction Past Psychological History: Anxiety, Depression Smoking Status: Current every day smoker Past Alcohol Use History: None Reported Additional Past Alcohol Use History / Comment(s): Pt states she has not had alcohol in 2 years. Past Drug Use History: None Reported - Past Family History Mother Family Medical History: No Reported History Additional Family Medical History / Comment(s): at 80 years old of old age. Father Family Medical History: No Reported History Additional Family Medical History / Comment(s): at 85 years old of old age. Medications and Allergies Home Medications Medication Instructions Recorded Confirmed Type Citalopram Hydrobromide 20 mg PO DAILY 10/15/20 05/06/23 History [Citalopram HBr] Losartan Potassium [Cozaar] 50 mg PO BID 10/15/20 05/06/23 History Magnesium Oxide [Mag-Ox] 400 mg PO BID #14 tablet 04/11/22 05/06/23 Rx Albuterol Sulfate [Albuterol 2 puff PO RT-QID PRN 05/06/23 05/06/23 History Sulfate Hfa] Budesonide [Pulmicort] 0.5 mg INHALATION RT-BID 05/06/23 05/06/23 History Dailyvite 1 tab PO DAILY 05/06/23 05/06/23 History Metoprolol Succinate (ER) [Toprol 100 mg PO DAILY 05/06/23 05/06/23 History Xl] Allergies Allergy/AdvReac Type Severity Reaction Status Date / Time No Known Allergies Allergy Verified 05/06/23 16:57 Physical Exam Vitals: Vital Signs Temp Pulse Pulse Resp BP BP Pulse Ox 05/07/23 09:34 82 05/07/23 09:23 84 05/07/23 04:00 71 18 134/74 95 05/06/23 23:41 98.0 F 67 20 133/71 94 L 05/06/23 21:51 82 22 137/76 96 05/06/23 21:04 22 97 05/06/23 20:34 80 05/06/23 20:18 79 05/06/23 20:10 76 22 142/77 94 L 05/06/23 18:48 77 18 148/79 97 05/06/23 18:12 98.0 F 75 33 H 149/80 96 05/06/23 17:25 72 05/06/23 17:19 74 05/06/23 17:07 79 34 H 175/81 96 05/06/23 15:35 05/06/23 15:34 98 34 H 148/76 93 L 05/06/23 15:31 05/06/23 14:58 98 05/06/23 14:04 98.3 F 98 28 H 144/104 92 L FiO2 05/07/23 09:34 05/07/23 09:23 05/07/23 04:00 05/06/23 23:41 05/06/23 21:51 05/06/23 21:04 05/06/23 20:34 05/06/23 20:18 05/06/23 20:10 05/06/23 18:48 05/06/23 18:12 05/06/23 17:25 05/06/23 17:19 05/06/23 17:07 05/06/23 15:35 35 05/06/23 15:34 05/06/23 15:31 35 05/06/23 14:58 05/06/23 14:04 Intake and Output 05/06/23 05/07/23 05/07/23 22:59 06:59 14:59 Intake Total 20 20 Balance 20 20 Intake: IV 20 20 Invasive Line 1 10 10 Invasive Line 2 10 10 Other: Voiding Method Diaper External Catheter # Voids 1 Weight 41.73 kg Results CBC & Chem 7: 05/07/23 07:31 05/07/23 07:31 Labs: Abnormal Lab Results - Last 24 Hours (Table) 05/06/23 05/06/23 05/06/23 Range/Units 15:39 17:20 23:50 WBC 14.8 H (3.8-10.6) k/uL Hct 48.1 H (34.0-46.0) % Neutrophils # 13.0 H (1.3-7.7) k/uL Lymphocytes # 0.9 L (1.0-4.8) k/uL D-Dimer 4.10 H (<0.60) mg/L FEU Potassium 3.1 L (3.5-5.1) mmol/L Chloride (98-107) mmol/L BUN 25 H (7-17) mg/dL Glucose 120 H (74-99) mg/dL 05/07/23 05/07/23 Range/Units 07:31 07:31 WBC (3.8-10.6) k/uL Hct (34.0-46.0) % Neutrophils # 9.0 H (1.3-7.7) k/uL Lymphocytes # 0.6 L (1.0-4.8) k/uL D-Dimer (<0.60) mg/L FEU Potassium (3.5-5.1) mmol/L Chloride 108 H (98-107) mmol/L BUN 25 H (7-17) mg/dL Glucose 173 H (74-99) mg/dL Thrombosis Risk Factor Assmnt - Choose All That Apply Any of the Below Risk Factors Present?: Yes Each Factor Represents 1 point: Abnormal pulmonary function (COPD) Other Risk Factors: Yes Each Risk Factor Represents 3 Points: Age 75 years or older Other congenital or acquired thrombophilia - If yes, enter type in comment: No Thrombosis Risk Factor Assessment Total Risk Factor Score: 4 Thrombosis Risk Factor Assessment Level: Moderate Risk
[2023-05-07 11:24] LABS: Glucose,Whole Blood 118 mg/dL (70-110)
[2023-05-07] MEDS: INSULIN ASPART (NovoLOG) 100 UNIT/ML VIAL SQ SCH ×3 (11:34→21:00)
[2023-05-07 15:41] VITALS: BMI 16.8
[2023-05-07 16:22] LABS: Glucose,Whole Blood 146 mg/dL (70-110)
[2023-05-07 20:39] LABS: Glucose,Whole Blood 232 mg/dL (70-110)
[2023-05-08 06:18] LABS: Glucose,Whole Blood 128 mg/dL (70-110)
[2023-05-08] MEDS: AZITHROMYCIN 500 MG in SODIUM CHLORIDE 0.9% 250 ML IVPB SCH (06:18)
[2023-05-08] MEDS: SODIUM CHLORIDE 0.9% 1,000 ML IV SCH (06:18)
[2023-05-08] MEDS: INSULIN ASPART (NovoLOG) 100 UNIT/ML VIAL SQ SCH ×4 (06:19→21:28)
[2023-05-08] MEDS: methylPREDNISolone SOD SUCCI 40 MG/ML 1 ML VIAL IV SCH ×2 (09:25→21:24)
[2023-05-08] MEDS: HEPARIN SODIUM,PORCINE 5,000 UNIT/ML 1 ML VIAL SQ SCH ×2 (09:26→21:27)
[2023-05-08] MEDS: METOPROLOL SUCCINATE (ER) 100 MG TAB.ER.24H PO SCH (09:26)
[2023-05-08] MEDS: CITALOPRAM HYDROBROMIDE 20 MG TAB PO SCH (09:26)
[2023-05-08] MEDS: NICOTINE 21MG/24HR PATCH TRANSDERM SCH (09:26)
[2023-05-08] MEDS: LOSARTAN 50 MG TAB PO SCH ×2 (09:26→21:28)
[2023-05-08] MEDS: MAGNESIUM OXIDE 400 MG TAB PO SCH ×2 (09:26→21:27)
[2023-05-08] MEDS: FORMOTEROL FUMARATE 20 MCG/2 ML NEBU INHALATION SCH ×2 (09:36→21:08)
[2023-05-08] MEDS: BUDESONIDE 0.5 MG/2 ML NEBU INHALATION SCH (09:36)
[2023-05-08] MEDS: IPRATROPIUM-ALBUTEROL 3 ML NEB INHALATION SCH ×4 (09:36→21:08)
--- NOTE | 2023-05-08 10:01 | P.PN ---
Subjective 71-year-old pleasant female with known history of COPD doesn't use any oxygen at home still smokes about 1 pack of cigarettes came in with compensative shortness of breath. Patient also has elevated d-dimer. Patient had a CT of the chest which showed some mild nonspecific and we will infiltrates there is no obvious infiltrates Are Consistent with Pneumonia Patient Denied Any Fever Chills Patient Had Leukocytosis. Patient Is Presently on 3 L of Oxygen Patient Has Progressive Shortness of Breath with Nonproductive Cough. Negative for Influe nza, RSV, COVID-19. Patient Was Started on Rocephin and Azithromycin, Rocephin Is Being This Can You As There Is No Evidence of Pneumonia. Pro-calcitonin is being obtained along with urinary Legionella antigen azithromycin is being continued. Patient had an elevated d-dimer. Patient had generalized weakness and falls at home. 05/08/2023 Patient doesn't feel any better but overall seemed to be improving. Patient is saturating 99% on 3 L will try to wean the oxygen off patient was evaluated by physical therapy and occupational therapy recommending subacute rehabitation. IV fluids will be discontinued. Constitutional: Denied any fatigue denied any fever. Cardio vascular: denied any chest pain, palpitations Gastrointestinal denied any nausea vomiting Pulmonary: The patient still feel short of breath Neurologic denied any new focal deficits All inpatient medications were reviewed and appropriate changes in these medications as dictated in the interval history and assessment and plan. PHYSICAL EXAMINATION: GENERAL: The patient is alert and oriented x3, not in any acute distress. Thin built cachectic female HEENT: Pupils are round and equally reacting to light. EOMI. No scleral icterus. No conjunctival pallor. Normocephalic, atraumatic. No pharyngeal erythema. No thyromegaly. CARDIOVASCULAR: S1 and S2 present. No murmurs, rubs, or gallops. PULMONARY: Decreased air entry without any crackles or wheezing ABDOMEN: Soft, nontender, nondistended, normoactive bowel sounds. No palpable organomegaly. MUSCULOSKELETAL: No joint swelling or deformity. EXTREMITIES: No cyanosis, clubbing, or pedal edema. NEUROLOGICAL: Gross neurological examination did not reveal any focal deficits. Generalized weakness with muscle atrophy SKIN: No rashes. Assessment and plan -Acute hypercapnic respiratory failure: Seconded to COPD exacerbation , on systemic steroids and azithromycin there is no evidence of pneumonia Rocephin was discontinue yesterday and the patient is feeling bit better. Will need to subacute rehabilitation -Cachexia, moderate protein calorie malnutrition secondary to COPD and chronic smoking supportive care, high-protein supplements. -Leukocytosis secondary to COPD -Hypertension patient blood pressure is well-controlled with her home regimen which will be continued -Hypokalemia secondary to IV fluids and potassium will be replaced. -Generalized deconditioning DVT prophylaxis: Low-dose Lovenox subcutaneous is a daily Objective - Vital Signs Vital signs: Vital Signs Temp 97.9 F 05/08/23 04:00 Pulse 61 05/08/23 09:53 Resp 18 05/08/23 04:00 BP 156/79 05/08/23 04:00 Pulse Ox 99 05/08/23 09:36 FiO2 35 05/06/23 15:35 Intake & Output 05/07/23 05/08/23 05/08/23 18:59 06:59 18:59 Intake Total 240 20 Output Total 375 Balance -135 20 Weight 41.73 kg Intake: IV 20 Invasive Line 2 10 Invasive Line 3 10 Oral 240 Output: Urine 375 Other: Voiding Method Diaper Diaper External Catheter External Catheter # Voids 2 2 # Bowel Movements 1 - Labs CBC & Chem 7: 05/07/23 07:31 05/07/23 07:31 Labs: Abnormal Lab Results - Last 24 Hours (Table) 05/07/23 05/07/23 05/07/23 Range/Units 11:18 16:20 20:38 POC Glucose (mg/dL) 118 H 146 H 232 H (70-110) mg/dL 05/08/23 Range/Units 06:16 POC Glucose (mg/dL) 128 H (70-110) mg/dL
[2023-05-08 10:05] LABS: African American GFR (CKD) >90 (>60 ml/min/1.73 sqM); Anion Gap 6 mmol/L; Blood Urea Nitrogen 23 mg/dL (7-17); Calcium 8.8 mg/dL (8.4-10.2); Carbon Dioxide 29 mmol/L (22-30); Chloride 106 mmol/L (98-107); Glucose 94 mg/dL (74-99); Non-African American GFR(CKD) >90 (>60 ml/min/1.73 sqM); Potassium 4.2 mmol/L (3.5-5.1); Sodium 141 mmol/L (137-145)
[2023-05-08 10:36] LABS: HCT 40.6 % (34.0-46.0); MCH 29.5 pg (25.0-35.0); MCHC 31.9 g/dL (31.0-37.0); MCV 92.5 fL (80.0-100.0); Mean Platelet Volume 8.7; Platelet Count 239 k/uL (150-450); RBC 4.39 m/uL (3.80-5.40); RDW 13.9 % (11.5-15.5); WBC 12.8 k/uL (3.8-10.6)
[2023-05-08 11:32] LABS: Glucose,Whole Blood 99 mg/dL (70-110)
--- NOTE | 2023-05-08 12:10 | P.PN ---
Subjective Progress Note Date: 05/08/23 Principal diagnosis: Shortness of breath. I am seeing this patient in new consultation today 05/07/2023 for suspected acute COPD exacerbation. Patient is a 73-year-old white female with past medical history significant for COPD, chronic ongoing tobacco dependence, previous right-sided pneumothorax, hypertension, anxiety and depression. Her PCP is Dr. Janel Bailey. Patient was at home, when she reportedly fell and was unable to get up. She denies hitting her head. She called EMS, and on arrival to the emergency room, the patient was found to be in some respiratory distress. She was initially placed on BiPAP with settings 10/5 and an FiO2 of 35%. Chest x-ray on arrival did not show any focal infiltrates or evidence of pneumonia. Did show some chronic scarring/fibrosis. Patient is currently sitting up in bed, on 3 L per minute nasal cannula, in no acute distress. She does report progressively worsening shortness of breath and an associated nonproductive cough over the last 2 days. She denies any fevers, sputum production, chest congestion, chest tightness/pain, wheezing. She denies any sick contacts. On my evaluation, patient states she is feeling much better. Not in any respiratory distress. She has already been started on a combination of DuoNeb's , budesonide inhalation, and IV Solu Medrol. CBC on arrival shows leukocytosis with a WBC count of 14.8, hemoglobin 15.4, hematocrit 48.1, platelets 318. BMP on arrival showed a sodium 141, potassium 3.1, chloride 104, serum bicarb 26, BUN 25, creatinine 0.61, glucose 120. Troponin not elevated. D-dimer was elevated at 4.1. Negative for influenza, RSV, COVID-19. Afebrile. Vital signs are stable. She is being monitored on the cardiac stepdown unit. Progress note dated 05/08/2023. 73-year-old female seen in consultation yesterday for shortness breath, and suspected COPD exacerbation. The patient is seen today in room 359. She continues on oxygen at 3 L, and saline at 50 mL an hour. She's feeling about the same today as he did yesterday, states that she is not really feeling much better or any better. Today's labs include a white count 12.8, hemoglobin 13, hematocrit 40.6, and a normal platelet count. Sodium 141, potassium 4.2, chlorides 106, CO2 29, BUN 23, and creatinine 0.53. Objective - Vital Signs Vital signs: Vital Signs Temp 98.2 F 05/08/23 08:00 Pulse 61 05/08/23 09:53 Resp 18 05/08/23 08:00 BP 173/83 05/08/23 08:00 Pulse Ox 99 05/08/23 09:36 FiO2 35 05/06/23 15:35 Intake & Output 05/07/23 05/08/23 05/08/23 18:59 06:59 18:59 Intake Total 240 20 240 Output Total 375 150 Balance -135 20 90 Weight 41.73 kg Intake: IV 20 Invasive Line 2 10 Invasive Line 3 10 Oral 240 240 Output: Urine 375 150 Other: Voiding Method Diaper Diaper Diaper External Catheter External Catheter External Catheter # Voids 2 2 # Bowel Movements 1 - Exam No acute distress, oriented 3. Currently on 3 L of oxygen. No conversational dyspnea. HEENT examination is grossly unremarkable. Mucous membranes are moist. No oral lesions. Neck supple. Full range of motion. No adenopathy thyromegaly or neck vein distention. Cardiovascular examination reveals regular rhythm rate. S1-S2 normal. No S3 or S4. No discernible murmur noted. Heart sounds are distant. Heart rate is 61 bpm. Lungs reveal scattered expiratory rhonchi and expiratory wheezes. Breath sounds are equal bilaterally but diminished throughout. There are no crackles. Saturations are 99% on 3 L. Abdomen soft bowel sounds are heard. No masses or tenderness. Extremities are intact. No cyanosis clubbing or edema. Skin is without rash or lesion. Neurologic examination is brief but nonfocal. - Labs CBC & Chem 7: 05/08/23 08:57 05/08/23 08:57 Labs: Abnormal Lab Results - Last 24 Hours (Table) 05/07/23 05/07/23 05/08/23 Range/Units 16:20 20:38 06:16 WBC (3.8-10.6) k/uL BUN (7-17) mg/dL POC Glucose (mg/dL) 146 H 232 H 128 H (70-110) mg/dL 05/08/23 05/08/23 Range/Units 08:57 08:57 WBC 12.8 H (3.8-10.6) k/uL BUN 23 H (7-17) mg/dL POC Glucose (mg/dL) (70-110) mg/dL Assessment and Plan Assessment: Acute hypoxemic respiratory failure, secondary to suspected acute COPD exac erbation. Chronic ongoing tobacco dependence. Leukocytosis. Elevated d-dimer. Hypokalemia. History of previous traumatic right-sided pneumothorax. Benign essential hypertension. History of anxiety/depression. Plan: Plan dated 05/08/2023. The patient is not feeling much improved today compared to yesterday. I do increase her Pulmicort up to 1 mg, mixed with formoterol, twice a day. He continues on DuoNeb's, and corticosteroids. Labs, x-rays, and medications are all reviewed. Prognosis is guarded. We will continue to follow the patient make recommendations along the way. The patient is counseled about the importance of smoking cessation. Time with Patient: Less than 30
[2023-05-08 16:42] LABS: Glucose,Whole Blood 162 mg/dL (70-110)
[2023-05-08 20:19] LABS: Glucose,Whole Blood 140 mg/dL (70-110)
[2023-05-08] MEDS: BUDESONIDE 1 MG/2 ML NEBU INHALATION SCH (21:08)
[2023-05-09 05:57] LABS: Glucose,Whole Blood 115 mg/dL (70-110)
[2023-05-09] MEDS: INSULIN ASPART (NovoLOG) 100 UNIT/ML VIAL SQ SCH ×4 (06:34→20:43)
[2023-05-09] MEDS: AZITHROMYCIN 500 MG in SODIUM CHLORIDE 0.9% 250 ML IVPB SCH (06:34)
[2023-05-09] MEDS: BUDESONIDE 1 MG/2 ML NEBU INHALATION SCH ×2 (08:29→21:46)
[2023-05-09] MEDS: IPRATROPIUM-ALBUTEROL 3 ML NEB INHALATION SCH ×4 (08:29→21:46)
[2023-05-09] MEDS: FORMOTEROL FUMARATE 20 MCG/2 ML NEBU INHALATION SCH ×2 (08:29→21:46)
[2023-05-09] MEDS: METOPROLOL SUCCINATE (ER) 100 MG TAB.ER.24H PO SCH (09:29)
[2023-05-09] MEDS: MAGNESIUM OXIDE 400 MG TAB PO SCH ×2 (09:29→20:43)
[2023-05-09] MEDS: HEPARIN SODIUM,PORCINE 5,000 UNIT/ML 1 ML VIAL SQ SCH ×2 (09:29→20:43)
[2023-05-09] MEDS: CITALOPRAM HYDROBROMIDE 20 MG TAB PO SCH (09:29)
[2023-05-09] MEDS: LOSARTAN 50 MG TAB PO SCH ×2 (09:29→20:43)
[2023-05-09] MEDS: methylPREDNISolone SOD SUCCI 40 MG/ML 1 ML VIAL IV SCH ×2 (09:30→20:43)
[2023-05-09] MEDS: NICOTINE 21MG/24HR PATCH TRANSDERM SCH (09:30)
[2023-05-09 11:37] LABS: Glucose,Whole Blood 96 mg/dL (70-110)
--- NOTE | 2023-05-09 11:50 | P.PN ---
Subjective Progress Note Date: 05/09/23 Principal diagnosis: Shortness of breath. I am seeing this patient in new consultation today 05/07/2023 for suspected acute COPD exacerbation. Patient is a 73-year-old white female with past medical history significant for COPD, chronic ongoing tobacco dependence, previous right-sided pneumothorax, hypertension, anxiety and depression. Her PCP is Dr. Janel Bailey. Patient was at home, when she reportedly fell and was unable to get up. She denies hitting her head. She called EMS, and on arrival to the emergency room, the patient was found to be in some respiratory distress. She was initially placed on BiPAP with settings 10/5 and an FiO2 of 35%. Chest x-ray on arrival did not show any focal infiltrates or evidence of pneumonia. Did show some chronic scarring/fibrosis. Patient is currently sitting up in bed, on 3 L per minute nasal cannula, in no acute distress. She does report progressively worsening shortness of breath and an associated nonproductive cough over the last 2 days. She denies any fevers, sputum production, chest congestion, chest tightness/pain, wheezing. She denies any sick contacts. On my evaluation, patient states she is feeling much better. Not in any respiratory distress. She has already been started on a combination of DuoNeb's , budesonide inhalation, and IV Solu Medrol. CBC on arrival shows leukocytosis with a WBC count of 14.8, hemoglobin 15.4, hematocrit 48.1, platelets 318. BMP on arrival showed a sodium 141, potassium 3.1, chloride 104, serum bicarb 26, BUN 25, creatinine 0.61, glucose 120. Troponin not elevated. D-dimer was elevated at 4.1. Negative for influenza, RSV, COVID-19. Afebrile. Vital signs are stable. She is being monitored on the cardiac stepdown unit. Progress note dated 05/08/2023. 73-year-old female seen in consultation yesterday for shortness breath, and suspected COPD exacerbation. The patient is seen today in room 359. She continues on oxygen at 3 L, and saline at 50 mL an hour. She's feeling about the same today as he did yesterday, states that she is not really feeling much better or any better. Today's labs include a white count 12.8, hemoglobin 13, hematocrit 40.6, and a normal platelet count. Sodium 141, potassium 4.2, chlorides 106, CO2 29, BUN 23, and creatinine 0.53. Progress note dated 05/09/2023. 73-year-old female admitted with a diagnosis of COPD exacerbation. The patient is seen today in room 359. She appears to be a bit less short of breath. She's currently on 2 L of oxygen, and not receiving any IV fluids. She continues on albuterol sulfate, ipratropium bromide, budesonide, formoterol, and IV Solu- Medrol. Glucose today is 96. Objective - Vital Signs Vital signs: Vital Signs Temp 97.8 F 05/09/23 09:19 Pulse 68 05/09/23 11:37 Resp 18 05/09/23 11:28 BP 172/78 05/09/23 11:28 Pulse Ox 89 L 05/09/23 11:28 FiO2 35 05/06/23 15:35 Intake & Output 05/08/23 05/09/23 05/09/23 18:59 06:59 18:59 Intake Total 840 180 Output Total 400 Balance 440 180 Intake: Oral 840 180 Output: Urine 400 Other: Voiding Method Diaper Diaper Diaper External Catheter External Catheter External Catheter # Voids 2 # Bowel Movements 1 - Exam No acute distress, oriented 3. Currently on 2 L of oxygen. No conversational dyspnea. HEENT examination is grossly unremarkable. Mucous membranes are moist. No oral lesions. Neck supple. Full range of motion. No adenopathy thyromegaly or neck vein distention. Cardiovascular examination reveals regular rhythm rate. S1-S2 normal. No S3 or S4. No discernible murmur noted. Heart sounds are distant. Heart rate is 70 bpm. Lungs reveal scattered expiratory rhonchi and expiratory wheezes. Breath sounds are equal bilaterally but diminished throughout. There are no crackles. Saturations are 90% on 2 L by nasal cannula. Abdomen soft bowel sounds are heard. No masses or tenderness. Extremities are intact. No cyanosis clubbing or edema. Skin is without rash or lesion. Neurologic examination is brief but nonfocal. - Labs CBC & Chem 7: 05/08/23 08:57 05/08/23 08:57 Labs: Abnormal Lab Results - Last 24 Hours (Table) 11/07/23 11/07/23 11/08/23 Range/Units 16:40 20:18 05:56 POC Glucose (mg/dL) 162 H 140 H 115 H (70-110) mg/dL Assessment and Plan Assessment: Acute hypoxemic respiratory failure, secondary to suspected acute COPD exacerba tion. Chronic ongoing tobacco dependence. Leukocytosis. Elevated d-dimer. Hypokalemia. History of previous traumatic right-sided pneumothorax. Benign essential hypertension. History of anxiety/depression. Plan: Plan dated 05/08/2023. The patient is not feeling much improved today compared to yesterday. I do increase her Pulmicort up to 1 mg, mixed with formoterol, twice a day. He continues on DuoNeb's, and corticosteroids. Labs, x-rays, and medications are all reviewed. Prognosis is guarded. We will continue to follow the patient make recommendations along the way. The patient is counseled about the importance of smoking cessation. Plan dated 05/09/2023. The patient appears to be less short of breath today. She feels improved. She continues on all appropriate medications, including updrafts, and Solu-Medrol. She continues on oxygen at 2 L. Saturations are in the low 90s. We will continue to follow the patient, make recommendations along the way. Her overall prognosis remains guarded. The patient is counseled about the importance of smoking cessation. Time with Patient: Less than 30
[2023-05-09 16:39] LABS: Glucose,Whole Blood 142 mg/dL (70-110)
[2023-05-09] MEDS ORDERED: ALPRAZolam 0.5 MG TAB PO PRN (17:06)
[2023-05-09 20:11] LABS: Glucose,Whole Blood 146 mg/dL (70-110)
--- NOTE | 2023-05-10 04:45 | P.PN ---
Subjective Progress Note Date: 05/09/23 71-year-old pleasant female with known history of COPD doesn't use any oxygen at home still smokes about 1 pack of cigarettes came in with compensative shortness of breath. Patient also has elevated d-dimer. Patient had a CT of the chest which showed some mild nonspecific and we will infiltrates there is no obvious infiltrates Are Consistent with Pneumonia Patient Denied Any Fever Chills Patient Had Leukocytosis. Patient Is Presently on 3 L of Oxygen Patient Has Progressive Shortness of Breath with Nonproductive Cough. Negative for Influenza, RSV, COVID-19. Patient Was Started on Rocephin and Azithromycin, Rocephin Is Being discontinued As There Is No Evidence of Pneumonia. Pro- calcitonin is being obtained along with urinary Legionella antigen azithromycin is being continued. Patient had an elevated d-dimer. Patient had generalized weakness and falls at home. 05/08/2023 Patient doesn't feel any better but overall seemed to be improving. Patient is saturating 99% on 3 L will try to wean the oxygen off patient was evaluated by physical therapy and occupational therapy recommending subacute rehab. IV fluids will be discontinued. 05/09/2023 Patient is seen and evaluated in follow-up continues to be dyspneic all feeling somewhat improved. Patient is maintained on IV steroids with continued wheezing along with breathing inhalational treatments and pulmonary is following. E ncouraged increased activity as tolerated and increased oral intake. Patient to be evaluated by physical therapy and will discuss further with case management/social work on discharge planning as patient will need ECF for continued weakness. Review of systems: Constitutional: No reports of fatigue, fever, or chills, reports increased anxiety Cardiovascular: No reports of chest pain or palpitations Respiratory: No reports of worsening shortness of breath GI: No reports of nausea, vomiting, or diarrhea : No reports of dysuria or retention Neurovascular: reports of generalized weakness All medications have been reviewed PHYSICAL EXAMINATION: GENERAL: The patient is alert and oriented x3, not in any acute distress. Thin built cachectic female HEENT: Pupils are round and equally reacting to light. EOMI. No scleral icterus. No conjunctival pallor. Normocephalic, atraumatic. No pharyngeal erythema. No thyromegaly. CARDIOVASCULAR: S1 and S2 present. No murmurs, rubs, or gallops. PULMONARY: Decreased air entry without any crackles , expiratory wheezing noted ABDOMEN: Soft, nontender, nondistended, normoactive bowel sounds. No palpable organomegaly. MUSCULOSKELETAL: No joint swelling or deformity. EXTREMITIES: No cyanosis, clubbing, or pedal edema. NEUROLOGICAL: Gross neurological examination did not reveal any focal deficits. Generalized weakness with muscle atrophy SKIN: No rashes. Assessment: -Acute hypercapnic respiratory failure: Secondary to COPD exacerbation -Generalized weakness with gait dysfunction -Cachexia, moderate protein calorie malnutrition secondary to COPD and chronic smoking -Leukocytosis secondary to COPD -Hypertension history -Hypokalemia secondary to IV fluids, improved -Generalized deconditioning -History of anxiety -DVT prophylaxis: -GI prophylaxis -Full code Plan: Patient is continued on IV steroids with some wheezing and continue DuoNeb treatments with pulmonary following Patient was seen and evaluated by physical therapy recommending rehab and patient is agreeable and case management following reports will be going to [facility] Increased activity as tolerated Encouraged oral intake Extensive tobacco cessation discussed Possible discharge in the next 24 hours The impression and plan of care has been dictated by Heather Pastrana, Nurse Practitioner as directed. Dr. Gaby MD I have performed a history and examination and MDM of this patient, discussed the same with the dictator, and agree with the dictator's assessment and plan as written ,documented as a scribe. Based on total visit time, I have performed more than 50% of the visit. Objective - Vital Signs Vital signs: Vital Signs Temp 97.8 F 05/09/23 09:19 Pulse 70 05/09/23 11:47 Resp 18 05/09/23 13:59 BP 172/78 05/09/23 11:28 Pulse Ox 89 L 05/09/23 11:28 FiO2 35 05/06/23 15:35 Intake & Output 05/08/23 05/09/23 05/09/23 18:59 06:59 18:59 Intake Total 840 360 Output Total 400 300 Balance 440 60 Intake: Oral 840 360 Output: Urine 400 300 Other: Voiding Method Diaper Diaper Diaper External Catheter External Catheter External Catheter # Voids 2 # Bowel Movements 1 - Labs CBC & Chem 7: 05/08/23 08:57 05/08/23 08:57 Labs: Abnormal Lab Results - Last 24 Hours (Table) 05/08/23 05/08/23 05/09/23 Range/Units 16:40 20:18 05:56 POC Glucose (mg/dL) 162 H 140 H 115 H (70-110) mg/dL
[2023-05-10 06:02] LABS: Glucose,Whole Blood 132 mg/dL (70-110)
[2023-05-10] MEDS: INSULIN ASPART (NovoLOG) 100 UNIT/ML VIAL SQ SCH ×2 (06:35→11:55)
[2023-05-10] MEDS: BUDESONIDE 1 MG/2 ML NEBU INHALATION SCH (08:13)
[2023-05-10] MEDS: FORMOTEROL FUMARATE 20 MCG/2 ML NEBU INHALATION SCH (08:13)
[2023-05-10] MEDS: IPRATROPIUM-ALBUTEROL 3 ML NEB INHALATION SCH ×2 (08:13→11:08)
[2023-05-10] MEDS: MAGNESIUM OXIDE 400 MG TAB PO SCH (08:50)
[2023-05-10] MEDS: HEPARIN SODIUM,PORCINE 5,000 UNIT/ML 1 ML VIAL SQ SCH (08:50)
[2023-05-10] MEDS: METOPROLOL SUCCINATE (ER) 100 MG TAB.ER.24H PO SCH (08:50)
[2023-05-10] MEDS: methylPREDNISolone SOD SUCCI 40 MG/ML 1 ML VIAL IV SCH (08:50)
[2023-05-10] MEDS: LOSARTAN 50 MG TAB PO SCH (08:50)
[2023-05-10] MEDS: CITALOPRAM HYDROBROMIDE 20 MG TAB PO SCH (08:50)
[2023-05-10] MEDS: NICOTINE 21MG/24HR PATCH TRANSDERM SCH (08:51)
[2023-05-10 11:29] LABS: Glucose,Whole Blood 106 mg/dL (70-110)
--- NOTE | 2023-05-10 11:55 | P.PN ---
Subjective Progress Note Date: 05/10/23 Principal diagnosis: Shortness of breath. I am seeing this patient in new consultation today 05/07/2023 for suspected acute COPD exacerbation. Patient is a 73-year-old white female with past medical history significant for COPD, chronic ongoing tobacco dependence, previous right-sided pneumothorax, hypertension, anxiety and depression. Her PCP is Dr. Janel Bailey. Patient was at home, when she reportedly fell and was unable to get up. She denies hitting her head. She called EMS, and on arrival to the emergency room, the patient was found to be in some respiratory distress. She was initially placed on BiPAP with settings 10/5 and an FiO2 of 35%. Chest x-ray on arrival did not show any focal infiltrates or evidence of pneumonia. Did show some chronic scarring/fibrosis. Patient is currently sitting up in bed, on 3 L per minute nasal cannula, in no acute distress. She does report progressively worsening shortness of breath and an associated nonproductive cough over the last 2 days. She denies any fevers, sputum production, chest congestion, chest tightness/pain, wheezing. She denies any sick contacts. On my evaluation, patient states she is feeling much better. Not in any respiratory distress. She has already been started on a combination of DuoNeb's , budesonide inhalation, and IV Solu Medrol. CBC on arrival shows leukocytosis with a WBC count of 14.8, hemoglobin 15.4, hematocrit 48.1, platelets 318. BMP on arrival showed a sodium 141, potassium 3.1, chloride 104, serum bicarb 26, BUN 25, creatinine 0.61, glucose 120. Troponin not elevated. D-dimer was elevated at 4.1. Negative for influenza, RSV, COVID-19. Afebrile. Vital signs are stable. She is being monitored on the cardiac stepdown unit. Progress note dated 05/08/2023. 73-year-old female seen in consultation yesterday for shortness breath, and suspected COPD exacerbation. The patient is seen today in room 359. She continues on oxygen at 3 L, and saline at 50 mL an hour. She's feeling about the same today as he did yesterday, states that she is not really feeling much better or any better. Today's labs include a white count 12.8, hemoglobin 13, hematocrit 40.6, and a normal platelet count. Sodium 141, potassium 4.2, chlorides 106, CO2 29, BUN 23, and creatinine 0.53. Progress note dated 05/09/2023. 73-year-old female admitted with a diagnosis of COPD exacerbation. The patient is seen today in room 359. She appears to be a bit less short of breath. She's currently on 2 L of oxygen, and not receiving any IV fluids. She continues on albuterol sulfate, ipratropium bromide, budesonide, formoterol, and IV Solu- Medrol. Glucose today is 96. Progress note dated 05/10/2023. 73-year-old female with a history of COPD and a COPD exacerbation. The patient is seen today in room 359. The patient continues on oxygen 2 L. The patient is not receiving any IV fluids. The patient is currently not on any antibiotics. Today, the Solu-Medrol was converted to prednisone and the budesonide and formoterol updrafts are converted to Symbicort. Laboratory data today includes a glucose of 106. Objective - Vital Signs Vital signs: Vital Signs Temp 98.3 F 05/10/23 08:20 Pulse 68 05/10/23 11:18 Resp 17 05/10/23 08:20 BP 173/79 05/10/23 08:20 Pulse Ox 97 05/10/23 08:20 FiO2 35 05/06/23 15:35 Intake & Output 05/09/23 05/10/23 05/10/23 18:59 06:59 18:59 Intake Total 540 Output Total 300 500 Balance 240 -500 Intake: Oral 540 Output: Urine 300 500 Other: Voiding Method Diaper Diaper Diaper External Catheter External Catheter External Catheter # Voids 1 1 # Bowel Movements 1 - Exam No acute distress, oriented 3. Currently on 2 L of oxygen. No conversational dyspnea. HEENT examination is grossly unremarkable. Mucous membranes are moist. No oral lesions. Neck supple. Full range of motion. No adenopathy thyromegaly or neck vein distention. Cardiovascular examination reveals regular rhythm rate. S1-S2 normal. No S3 or S4. No discernible murmur noted. Heart sounds are distant. Heart rate is 68 bpm. Lungs reveal scattered expiratory rhonchi and expiratory wheezes. Breath sounds are equal bilaterally but diminished throughout. There are no crackles. Saturations are 93 % on 2 L by nasal cannula. Abdomen soft bowel sounds are heard. No masses or tenderness. Extremities are intact. No cyanosis clubbing or edema. Skin is without rash or lesion. Neurologic examination is brief but nonfocal. - Labs CBC & Chem 7: 05/08/23 08:57 05/08/23 08:57 Labs: Abnormal Lab Results - Last 24 Hours (Table) 05/09/23 05/09/23 05/10/23 Range/Units 16:37 20:11 06:01 POC Glucose (mg/dL) 142 H 146 H 132 H (70-110) mg/dL Assessment and Plan Assessment: Acute hypoxemic respiratory failure, secondary to suspected acute COPD exacerbation. Chronic ongoing tobacco dependence. Leukocytosis. Elevated d-dimer. Hypokalemia. History of previous traumatic right-sided pneumothorax. Benign essential hypertension. History of anxiety/depression. Plan: Plan dated 05/08/2023. The patient is not feeling much improved today compared to yesterday. I do increase her Pulmicort up to 1 mg, mixed with formoterol, twice a day. He continues on DuoNeb's, and corticosteroids. Labs, x-rays, and medications are all reviewed. Prognosis is guarded. We will continue to follow the patient make recommendations along the way. The patient is counseled about the importance of smoking cessation. Plan dated 05/09/2023. The patient appears to be less short of breath today. She feels improved. She continues on all appropriate medications, including updrafts, and Solu-Medrol. She continues on oxygen at 2 L. Saturations are in the low 90s. We will continue to follow the patient, make recommendations along the way. Her overall prognosis remains guarded. The patient is counseled about the importance of smoking cessation. Plan dated 05/10/2023. The patient's Solu-Medrol is discontinued, and taper of prednisone. In addition, the updrafts, with budesonide, and formoterol, or change to Symbicort, 160/4.5, 2 puffs twice a day. Labs, x-rays, and medications are reviewed. The patient appears to be stable clinically. The patient is very hard of hearing. We will continue to follow, and make recommendations along the way. Discharge planning is underway. The patient is counseled about the importance of smoking cessation. Time with Patient: Less than 30
[2023-05-10 12:24] VITALS: PULSE 63; TEMP 98.2
[2023-05-10 13:12] VITALS: BP 163/77; RESP 17
--- NOTE | 2023-05-10 13:56 | P.DS ---
Providers Date of admission: 05/06/23 17:52 Expected date of discharge: 05/10/23 Attending physician: Jett Castelan MD Consults: 05/06/23 17:50 Consult Physician Routine Consulting Provider: Flip Dyer Consult Reason/Comments: copd, hypoxic resp failure on bipap Do you want consulting provider notified?: Yes Primary care physician: Janel Bailey Hospital Course: Final diagnosis -Acute hypercapnic respiratory failure: Secondary to COPD exacerbation -Generalized weakness with gait dysfunction -Cachexia, moderate protein calorie malnutrition secondary to COPD and chronic smoking -Leukocytosis secondary to COPD -Hypertension history -Hypokalemia secondary to IV fluids, improved -Generalized deconditioning -History of anxiety -DVT prophylaxis: -GI prophylaxis -Full code Discharge disposition Patient is being discharged in a stable condition with guarded prognosis to [facility]. Patient will follow-up with Dr. Bailey in the outpatient setting upon discharge. Patient is to continue with oral prednisone taper, DuoNeb treatments, and close outpatient follow-up with pulmonary as scheduled. Total time taken is greater than 35 minutes. Hospital course This is a 73-year-old female who was recently admitted with increased shortness of breath and COPD exacerbation. Patient normally does not use oxygen at home and has been requiring oxygen of 2-3 L via nasal cannula. Patient was seen and evaluated by pulmonary maintained on IV steroids along with DuoNeb treatments and supplemental oxygen. Patient also continues to smoke and has been extensively counseled on complete smoking cessation. Patient also with generalized weakness was evaluated by physical therapy recommending rehab and patient is agreeable. Plan is for patient to go to [facility] and has been accepted. Patient has been cleared by pulmonary for discharge and will follow- up outpatient. Currently no reports of chest pain, shortness of breath, or palpitations. Patient is afebrile. No reports of nausea or vomiting and patient is tolerating diet. Patient will be going to [facility] today. Physical exam: Gen: This is a 73-year-old female who is awake, alert and oriented 3, thin built, elderly appearing, cachectic HEENT: Head is atraumatic, normocephalic. Pupils equal, round. Sclerae is anicteric. NECK: Supple. No JVD. No lymphadenopathy. No thyromegaly. LUNGS: Clear to auscultation. No wheezes or rhonchi. No intercostal retractions. HEART: Regular rate and rhythm. No murmur. ABDOMEN: Soft. Bowel sounds are present. No masses. No tenderness. EXTREMITIES: No pedal edema. No calf tenderness. NEUROLOGICAL: Patient is awake, alert and oriented x3. Cranial nerves 2 through 12 are grossly intact. Diffusely weak Please refer to medication reconciliation sheet for a list of medications. The impression and plan of care has been dictated by Heather Pastrana, Nurse Practitioner as directed. Dr. Gaby MD I have performed a history and examination and MDM of this patient, discussed the same with the dictator, and agree with the dictator's assessment and plan as written ,documented as a scribe. Based on total visit time, I have performed more than 50% of the visit. Patient Condition at Discharge: Stable Plan - Discharge Summary Discharge Rx Participant: No New Discharge Prescriptions: New Ipratropium-Albuterol Nebulize [Duoneb 0.5 mg-3 mg/3 ml Soln] 3 ml INHALATION RT-QID each Nicotine 21Mg/24Hr Patch [Habitrol] 1 patch TRANSDERM DAILY patch Heparin Sodium,Porcine (1 ml) [Heparin Sodium] 5,000 unit SQ Q12HR each predniSONE 10 mg PO DIRECTED #30 tab Budesonide-Formot 160-4.5 Mcg [Symbicort 160-4.5 Mcg Inhaler] 2 puff INHALAT ION RT-BID each ALPRAZolam [Xanax] 1 mg PO TID #6 tab Ipratropium-Albuterol Nebulize [Duoneb 0.5 mg-3 mg/3 ml Soln] 3 ml INHALATION RT-Q2H PRN each PRN Reason: Shortness Of Breath Or Wheezing Continue Losartan Potassium [Cozaar] 50 mg PO BID Metoprolol Succinate (ER) [Toprol XL] 100 mg PO DAILY Dailyvite 1 tab PO DAILY Budesonide [Pulmicort] 0.5 mg INHALATION RT-BID Citalopram Hydrobromide [Citalopram HBr] 20 mg PO DAILY Magnesium Oxide [Mag-Ox] 400 mg PO BID #14 tablet Albuterol Sulfate [Albuterol Sulfate Hfa] 2 puff PO RT-QID PRN PRN Reason: Shortness Of Breath Discharge Medication List Citalopram Hydrobromide [Citalopram HBr] 20 mg PO DAILY 10/15/20 [History] Losartan Potassium [Cozaar] 50 mg PO BID 10/15/20 [History] Magnesium Oxide [Mag-Ox] 400 mg PO BID #14 tablet 04/11/22 [Rx] Albuterol Sulfate [Albuterol Sulfate Hfa] 2 puff PO RT-QID PRN 05/06/23 [History] Budesonide [Pulmicort] 0.5 mg INHALATION RT-BID 05/06/23 [History] Dailyvite 1 tab PO DAILY 05/06/23 [History] Metoprolol Succinate (ER) [Toprol XL] 100 mg PO DAILY 05/06/23 [History] ALPRAZolam [Xanax] 1 mg PO TID #6 tab 05/10/23 [Rx] Budesonide-Formot 160-4.5 Mcg [Symbicort 160-4.5 Mcg Inhaler] 2 puff INHALATION RT-BID each 05/10/23 [Rx] Heparin Sodium,Porcine (1 ml) [Heparin Sodium] 5,000 unit SQ Q12HR each 05/10/23 [Rx] Ipratropium-Albuterol Nebulize [Duoneb 0.5 mg-3 mg/3 ml Soln] 3 ml INHALATION RT-Q2H PRN each 05/10/23 [Rx] Ipratropium-Albuterol Nebulize [Duoneb 0.5 mg-3 mg/3 ml Soln] 3 ml INHALATION RT-QID each 05/10/23 [Rx] Nicotine 21Mg/24Hr Patch [Habitrol] 1 patch TRANSDERM DAILY patch 05/10/23 [Rx] predniSONE 10 mg PO DIRECTED #30 tab 05/10/23 [Rx] Follow up Appointment(s)/Referral(s): Janel Bailey MD [Primary Care Provider] - 1-2 days Woo Rincon DO [Doctor of Osteopathic Medicine] - 1 Week Activity/Diet/Wound Care/Special Instructions: Patient is going to [facility] Activity as tolerated Continue current medications including DuoNeb's 4 times a day and as needed Follow-up with pulmonary outpatient Follow-up with primary care provider on discharge Discharge Disposition: TRANSFER TO SNF/ECF
[2023-05-10] MEDS ORDERED: SYMBICORT 160-4.5 MCG INHALER INHALATION SCH (20:00)
[2023-05-11] MEDS ORDERED: predniSONE 20 MG TAB PO SCH (09:00)
== END 2023-05-10 15:20 | DRG 190 ==
LOC: EC 13:58 → 3SCARD 17:52
PROVIDERS: ADMIT Internal Medicine; ATTEND Internal Medicine
DX: J44.1 Chronic obstructive pulmonary disease with (acute) exacerbation (principal); J96.01 Acute respiratory failure with hypoxia; J96.02 Acute respiratory failure with hypercapnia; E44.0 Moderate protein-calorie malnutrition; Z68.1 Body mass index [BMI] 19.9 or less, adult; R64 Cachexia; J84.9 Interstitial pulmonary disease, unspecified; Z20.822 Contact with and (suspected) exposure to COVID-19; F17.210 Nicotine dependence, cigarettes, uncomplicated; E87.6 Hypokalemia; I10 Essential (primary) hypertension; F32.A Depression, unspecified; F41.9 Anxiety disorder, unspecified; R26.2 Difficulty in walking, not elsewhere classified; Z79.52 Long term (current) use of systemic steroids; Z79.899 Other long term (current) drug therapy; Z71.6 Tobacco abuse counseling
CPT/HCPCS: 36415; 71045; 71275; 80048; 80053; 82550; 84145; 84484; 85025; 85027; 85379; 85610; 85730; 87636; 93005; 94640; 94660; 94760; 96365; 96372; 96375; 96376; 99291

== ENCOUNTER 2023-12-17 08:19 | Emergency (ER) | payer MEDICARE ==
--- NOTE | 2023-12-17 10:01 | XR ---
EXAMINATION TYPE: XR hand complete RT DATE OF EXAM: 12/17/2023 COMPARISON: None HISTORY: Swelling TECHNIQUE: 3 view right hand FINDINGS: Structures are osteoporotic. This can be correlated with bone density No displaced fractures are evident. Joint spaces and mild diffuse narrowing. Follow up exams can be p erformed 7-10 days from acute trauma for continued pain There is some mild soft tissue swelling over the dorsum of the hand. IMPRESSION: 1. Mild soft tissue swelling predominantly along the dorsum of the hand and about the wrist. 2. No acute osseous abnormality radiographically 3. Osteoporosis
--- NOTE | 2023-12-17 10:14 | ED ---
Upper Extremity HPI - General Chief Complaint: Extremity Injury, Upper Stated Complaint: R Hand Infection Time Seen by Provider: 12/17/23 08:35 Source: patient, EMS, RN notes reviewed Mode of arrival: EMS Limitations: no limitations - History of Present Illness Initial Comments: 73-year-old female presents emergency department with complaint of right thumb pain, thumb swelling. Patient states that she started swelling and she has a ring on it. Patient unable to move the ring. She is unsure sure if she struck her hand because of swelling. She denies any pain otherwise. - Related Data Home Medications Medication Instructions Recorded Confirmed Citalopram Hydrobromide 20 mg PO DAILY 10/15/20 05/06/23 [Citalopram HBr] Losartan Potassium [Cozaar] 50 mg PO BID 10/15/20 05/06/23 Albuterol Sulfate [Albuterol 2 puff PO RT-QID PRN 05/06/23 05/06/23 Sulfate Hfa] Budesonide [Pulmicort] 0.5 mg INHALATION RT-BID 05/06/23 05/06/23 Dailyvite 1 tab PO DAILY 05/06/23 05/06/23 Metoprolol Succinate (ER) [Toprol 100 mg PO DAILY 05/06/23 05/06/23 XL] Previous Rx's Medication Instructions Recorded Magnesium Oxide [Mag-Ox] 400 mg PO BID #14 tablet 04/11/22 ALPRAZolam [Xanax] 1 mg PO TID #6 tab 05/10/23 Budesonide-Formot 160-4.5 Mcg 2 puff INHALATION RT-BID each 05/10/23 [Symbicort 160-4.5 Mcg Inhaler] Heparin Sodium,Porcine (1 ml) 5,000 unit SQ Q12HR each 05/10/23 [Heparin Sodium] Ipratropium-Albuterol Nebulize 3 ml INHALATION RT-Q2H PRN each 05/10/23 [Duoneb 0.5 mg-3 mg/3 ml Soln] Ipratropium-Albuterol Nebulize 3 ml INHALATION RT-QID each 05/10/23 [Duoneb 0.5 mg-3 mg/3 ml Soln] Nicotine 21Mg/24Hr Patch [Habitrol] 1 patch TRANSDERM DAILY patch 05/10/23 predniSONE 10 mg PO DIRECTED #30 tab 05/10/23 Cephalexin [Keflex] 500 mg PO Q6HR #40 cap 12/17/23 Indomethacin [Indocin] 50 mg PO TID #30 capsule 12/17/23 Allergies Allergy/AdvReac Type Severity Reaction Status Date / Time No Known Allergies Allergy Verified 05/06/23 16:57 Review of Systems ROS Statement: Those systems with pertinent positive or pertinent negative responses have been documented in the HPI. ROS Other: All systems not noted in ROS Statement are negative. Past Medical History Past Medical History: COPD, Hypertension Additional Past Medical History / Comment(s): [place] History of Any Multi-Drug Resistant Organisms: None Reported Past Surgical History: Section Additional Past Surgical History / Comment(s): vain stripping left leg Past Anesthesia/Blood Transfusion Reactions: No Reported Reaction Past Psychological History: Anxiety, Depression Smoking Status: Current every day smoker Past Alcohol Use History: None Reported Past Drug Use History: None Reported - Past Family History Mother Family Medical History: No Reported History Additional Family Medical History / Comment(s): at 80 years old of old age. Father Family Medical History: No Reported History Additional Family Medical History / Comment(s): at 85 years old of old age. General Exam General appearance: alert, in no apparent distress Head exam: Present: atraumatic, normocephalic, normal inspection Neck exam: Present: normal inspection, full ROM. Absent: tenderness, meningismus, lymphadenopathy Respiratory exam: Present: normal lung sounds bilaterally. Absent: respiratory distress, wheezes, rales, rhonchi, stridor Cardiovascular Exam: Present: regular rate, normal rhythm, normal heart sounds. Absent: systolic murmur, diastolic murmur, rubs, gallop, clicks Extremities exam: Present: other (There is a thumb ring noted that is restrictive, there is swelling of the first second and third digit and hand no tenderness proximal to the hand no pain) Neurological exam: Present: alert Skin exam: Present: warm, dry, intact, normal color. Absent: rash Course Vital Signs 12/17/23 08:22 Temperature 97.9 F Pulse Rate 71 Respiratory 18 Rate Blood Pressure 143/92 O2 Sat by Pulse 96 Oximetry Medical Decision Making - Medical Decision Making Was pt. sent in by a medical professional or institution (, PA, [employer], urgent care, hospital, or detention...) When possible be specific @ -No Did you speak to anyone other than the patient for history (EMS, parent, family, police, friend...)? What history was obtained from this source @ -No Did you review nursing and triage notes (agree or disagree)? Why? @ -I reviewed and agree with nursing and triage notes Were old charts reviewed (outside hosp., previous admission, EMS record, old EKG, old radiological studies, urgent care reports/EKG's, detention records)? Report findings @ -No old charts were reviewed Differential Diagnosis (chest pain, altered mental status, abdominal pain women, abdominal pain men, vaginal bleeding, weakness, fever, dyspnea, syncope, headache, dizziness, GI bleed, back pain, seizure, CVA, palpatations, mental health, musculoskeletal)? @ -Constrictive jewelry, hand contusion, hand fracture, gout EKG interpreted by me (3pts min.). @ -None X-rays interpreted by me (1pt min.). @ -X-ray shows osteoporosis mild hand swelling CT interpreted by me (1pt min.). @ -None done U/S interpreted by me (1pt. min.). @ -None done What testing was considered but not performed or refused? (CT, X-rays, U/S, labs)? Why? @ -None What meds were considered but not given or refused? Why? @ -None Did you discuss the management of the patient with other professionals (professionals i.e. , PA, [employer], lab, RT, psych nurse, mental health social worker, cigarette filter inspector, teacher, school services officer, telephonic case manager)? Give summary @ -No Was smoking cessation discussed for >3mins.? @ -No Was critical care preformed (if so, how long)? @ -No Were there social determinants of health that impacted care today? How? (Homelessness, low income, unemployed, alcoholism, drug addiction, transportation, low edu. Level, literacy, decrease access to med. care, detention, rehab)? @ -No Was there de-escalation of care discussed even if they declined (Discuss DNR or withdrawal of care, Hospice)? DNR status @ -No What co-morbidities impacted this encounter? (DM, HTN, Smoking, COPD, CAD, Cancer, CVA, ARF, Chemo, Hep., AIDS, mental health diagnosis, sleep apnea, morbid obesity)? @ -None Was patient admitted / discharged? Hospital course, mention meds given and route, prescriptions, significant lab abnormalities, going to OR and other pertinent info. @ -Discharge patient presented for constrictive jewelry which was removed no complications. Patient does have some hand swelling and tenderness unclear if there was injury or possible gout versus infection. Patient vies to recheck in 24 hours Undiagnosed new problem with uncertain prognosis? @ -No Drug Therapy requiring intensive monitoring for toxicity (Heparin, Nitro, Insulin, Cardizem)? @ -No Were any procedures done? @ -Ring was cut off using ring cutter, raptor scissors and pliers. Patient tolerated well no complications Diagnosis/symptom? @ -Constrictive jewelry, hand swelling Acute, or Chronic, or Acute on Chronic? @ -Acute Uncomplicated (without systemic symptoms) or Complicated (systemic symptoms)? @ -Complicated Side effects of treatment? @ -No Exacerbation, Progression, or Severe Exacerbation? @ -No Poses a threat to life or bodily function? How? (Chest pain, [place], [place], pneumonia, PE, COPD, DKA, ARF, appy, cholecystitis, CVA, Diverticulitis, Homicidal, Suicidal, threat to staff... and all critical care pts) @ -No Disposition Clinical Impression: Constrictive jewelry of finger, Hand swelling Disposition: HOME SELF-CARE Condition: Stable Instructions (If sedation given, give patient instructions): Hand Sprain (ED) Additional Instructions: Please return to the Emergency Department if symptoms worsen or any other concerns. Prescriptions: Indomethacin [Indocin] 50 mg PO TID #30 capsule Cephalexin [Keflex] 500 mg PO Q6HR #40 cap Is patient prescribed a controlled substance at d/c from ED?: No Referrals: Janel Bailey MD [Primary Care Provider] - 1-2 days Time of Disposition: 10:14
[2023-12-17 10:41] VITALS: BP 174/88; PULSE 73; RESP 16; TEMP 97.6
== END 2023-12-17 11:15 | disposition home or self-care (01) ==
LOC: EC 08:19
DX: M81.0 Age-related osteoporosis without current pathological fracture (principal); F17.200 Nicotine dependence, unspecified, uncomplicated; W49.04XA Ring or other jewelry causing external constriction, initial encounter
CPT/HCPCS: 99283

== ENCOUNTER 2023-12-19 11:56 | Inpatient (IN) | payer MEDICARE ==
[2023-12-19 13:26] LABS: Basophils % (A) 1 %; Eosinophils % (A) 0 %; HCT 37.3 % (34.0-46.0); HGB 11.5 gm/dL (11.4-16.0); Lymphocytes # (A) 0.7 k/uL (1.0-4.8); Lymphocytes % (A) 9 %; MCH 27.8 pg (25.0-35.0); MCHC 30.9 g/dL (31.0-37.0); MCV 89.9 fL (80.0-100.0); Mean Platelet Volume 7.6; Monocytes # (A) 0.3 k/uL (0-1.0); Monocytes % (A) 4 %; Neutrophils # (A) 6.5 k/uL (1.3-7.7); Neutrophils % (A) 86 %; Platelet Count 278 k/uL (150-450); RBC 4.15 m/uL (3.80-5.40); RDW 12.9 % (11.5-15.5); VBG PH 7.42 (7.31-7.41); WBC 7.6 k/uL (3.8-10.6)
[2023-12-19 13:36] LABS: ALT 6 U/L (4-34); AST 18 U/L (14-36); African American GFR (CKD) >90 (>60 ml/min/1.73 sqM); Albumin 3.3 g/dL (3.5-5.0); Alcohol <10 mg/dL; Alkaline Phosphatase 99 U/L (38-126); Anion Gap 4 mmol/L; Blood Urea Nitrogen 19 mg/dL (7-17); Calcium 8.5 mg/dL (8.4-10.2); Carbon Dioxide 35 mmol/L (22-30); Chloride 99 mmol/L (98-107); Glucose 86 mg/dL (74-99); Non-African American GFR(CKD) >90 (>60 ml/min/1.73 sqM); Potassium 3.5 mmol/L (3.5-5.1); Sodium 138 mmol/L (137-145); Total Bilirubin 0.5 mg/dL (0.2-1.3); Total Protein 6.3 g/dL (6.3-8.2); Uric Acid 3.3 mg/dL (3.7-7.4)
[2023-12-19 13:38] LABS: Partial Thromboplastin Time 25.6 sec (22.0-30.0); Prothrombin Time 11.1 sec (10.0-12.5)
--- NOTE | 2023-12-19 14:11 | CT ---
EXAMINATION TYPE: CT brain wo con DATE OF EXAM: 12/19/2023 COMPARISON: 04/05/2022 INDICATION: AMS DLP: 1096.4 mGycm, Automated exposure control for dose reduction was used. CONTRAST: None CT of the brain is performed utilizing 3 mm thick sections through the posterior fossa and 3 mm thick sections through the remaining calvarium. Study is performed within 24 hours of arrival to the hosp [place]. No abnormal hyperdensity is present to suggest an acute intracranial hemorrhage. No mass lesion is evident. No acute infarcts are evident. Confluent periventricular white matter hypodensity is present. This is progressive from 2021. Microvascular ischemic change could be considered. Ventricles and sulci are prominent for the patient age. Paranasal sinuses and mastoid air cells within the [id number] are clear. IMPRESSION: 1. Atrophy with chronic appearing periventricular white matter ischemic changes.
--- NOTE | 2023-12-19 14:43 | XR ---
EXAMINATION TYPE: XR chest 2V DATE OF EXAM: 12/19/2023 COMPARISON: 05/06/2023 HISTORY: Shortness of breath TECHNIQUE: Frontal and lateral views of the chest are obtained. FINDINGS: Scattered senescent parenchymal changes noted. Hyperinflation compatible with COPD. No evidence for infiltrate. No evidence for atelectasis. Heart size is stable. Mediastinal structures are stable and grossly unremarkable. No evidence for hilar prominence. Degenerative changes dorsal spine. IMPRESSION: 1. No evidence for acute pulmonary disease.
[2023-12-19 15:04] LABS: Glucose,Whole Blood 71 mg/dL (70-110)
--- NOTE | 2023-12-19 15:18 | ED ---
General Adult HPI - General Chief complaint: Altered Mental Status Stated complaint: AMS Time Seen by Provider: 12/19/23 12:05 Source: patient, EMS Mode of arrival: EMS Limitations: no limitations - History of Present Illness Initial comments: 73-year-old female with past medical history of COPD on 2 L home O2 who presents emergency department with increased work of breathing and altered mental status. [id number] is at bedside and provides history. States that she went over the patient's house today and found her to be very confused. She was talking to people that were not present at the house. She looked like she was struggling to breathe. She continues to smoke. She wears her oxygen 24 hours a day and only takes it off to smoke. No recent steroid or antibiotic use. Daughter in law states that she has not been compliant with her medications including her nebulizer. She stopped taking her medications about 6 months ago. Patient has had difficulty walking due to pain in her lower extremities. Patient was in the emergency department 2 days ago for right hand swelling. It was reported that the patient had a ring that was stuck on her finger. She was placed on indomethacin and antibiotics at home for the swelling however the patient did not start taking them. Patient not eating or drinking. Daughter in law concerned for her altered mental status and therefore brought her into the emergency department for further evaluation - Related Data Previous Rx's Medication Instructions Recorded Budesonide-Formot 160-4.5 Mcg 2 puff INHALATION RT-BID each 12/25/23 [Symbicort 160-4.5 Mcg Inhaler] Folic Acid 1 mg PO DAILY #30 tablet 12/25/23 Heparin Sodium,Porcine (1 ml) 5,000 unit SQ Q12HR each 12/25/23 [Heparin Sodium] INSULIN ASPART (NovoLOG) [NovoLOG 0 unit SQ ACHS each 12/25/23 (formulary)] Ipratropium-Albuterol Nebulize 3 ml INHALATION RT-Q4H each 12/25/23 [Duoneb 0.5 mg-3 mg/3 ml Soln] Multivitamins, Thera [Multivitamin] 1 tab PO DAILY #30 tablet 12/25/23 Thiamine [Vitamin B-1] 100 mg PO DAILY #30 tablet 12/25/23 cefUROXime axetiL [Ceftin] 500 mg PO BID 5 Days #10 tab 12/25/23 predniSONE 10 mg PO DIRECTED #30 tab 12/25/23 Allergies Allergy/AdvReac Type Severity Reaction Status Date / Time No Known Allergies Allergy Verified 12/19/23 13:03 Review of Systems ROS Statement: Those systems with pertinent positive or pertinent negative responses have been documented in the HPI. ROS Other: All systems not noted in ROS Statement are negative. Past Medical History Past Medical History: COPD, Hypertension Additional Past Medical History / Comment(s): [place] History of Any Multi-Drug Resistant Organisms: None Reported Past Surgical History: Section Additional Past Surgical History / Comment(s): vain stripping left leg Past Anesthesia/Blood Transfusion Reactions: No Reported Reaction Past Psychological History: Anxiety, Depression Smoking Status: Current every day smoker Past Alcohol Use History: None Reported Past Drug Use History: None Reported - Past Family History Mother Family Medical History: No Reported History Additional Family Medical History / Comment(s): at 80 years old of old age. Father Family Medical History: No Reported History Additional Family Medical History / Comment(s): at 85 years old of old age. General Exam Limitations: altered mental status General appearance: alert, in no apparent distress Head exam: Present: atraumatic, normocephalic, normal inspection Eye exam: Present: normal appearance, PERRL, EOMI. Absent: scleral icterus, conjunctival injection, periorbital swelling ENT exam: Present: mucous membranes dry Neck exam: Present: normal inspection. Absent: tenderness, meningismus, lymphadenopathy Respiratory exam: Present: decreased breath sounds Cardiovascular Exam: Present: regular rate, normal rhythm, normal heart sounds. Absent: systolic murmur, diastolic murmur, rubs, gallop, clicks GI/Abdominal exam: Present: soft, normal bowel sounds. Absent: distended, tenderness, guarding, rebound, rigid Extremities exam: Present: normal inspection, full ROM, normal capillary refill. Absent: tenderness, pedal edema, joint swelling, calf tenderness Neurological exam: Present: altered Psychiatric exam: Present: flat affect Skin exam: Present: warm, dry, intact, normal color. Absent: rash Course Vital Signs 12/19/23 12/19/23 12/19/23 12:01 14:17 14:25 Temperature 97.9 F 97.7 F Pulse Rate 88 90 Respiratory Rate Blood Pressure 182/116 183/95 O2 Sat by Pulse 92 L 97 Oximetry 12/19/23 12/19/23 12/19/23 16:05 16:40 16:49 Temperature Pulse Rate 91 60 62 Respiratory 22 Rate Blood Pressure 179/100 O2 Sat by Pulse 98 Oximetry 12/19/23 18:36 Temperature 98.1 F Pulse Rate 89 Respiratory 22 Rate Blood Pressure 153/87 O2 Sat by Pulse 97 Oximetry Medical Decision Making - Medical Decision Making Was pt. sent in by a medical professional or institution (, PA, TECHNICAL COORDINATOR, urgent care, hospital, or fdc...) When possible be specific @ -No Did you speak to anyone other than the patient for history (EMS, parent, family, police, friend...)? What history was obtained from this source @ -Spoke with the [id number] for history Did you review nursing and triage notes (agree or disagree)? Why? @ -I reviewed and agree with nursing and triage notes Were old charts reviewed (outside hosp., previous admission, EMS record, old EKG, old radiological studies, urgent care reports/EKG's, fdc records)? Report findings @ -No old charts were reviewed Differential Diagnosis (chest pain, altered mental status, abdominal pain women, abdominal pain men, vaginal bleeding, weakness, fever, dyspnea, syncope, headache, dizziness, GI bleed, back pain, seizure, CVA, palpatations, mental health, musculoskeletal)? @Differential Altered Mental Status: Hypoglycemia, DKA, hypercapnia, ETOH, overdose, CO poisoning, trauma, myxedema coma, HTN encephalopathy, infection, encephalitis, psychosis, intercranial hemorrhage, hepatic encephalopathy, meningitis, CVA, this is not meant to be an all-inclusive list EKG interpreted by me (3pts min.). @ -Yes and demonstrates sinus rhythm with a rate of 78. LA interval 158. QRS 91. QTc of 400. Biphasic T waves V2V3 X-rays interpreted by me (1pt min.). @ -Yes and demonstrates no acute process CT interpreted by me (1pt min.). @ -Yes and demonstrates no acute process U/S interpreted by me (1pt. min.). @ -None done What testing was considered but not performed or refused? (CT, X-rays, U/S, labs)? Why? @ -None What meds were considered but not given or refused? Why? @ -None Did you discuss the management of the patient with other professionals (professionals i.e. DrBrittany, PA, TECHNICAL COORDINATOR, lab, RT, psych nurse, social sciences chair, brickmason helper, teacher, credit products officer, porter sample case)? Give summary @ -Spoke with Dr. Cabrera Was smoking cessation discussed for >3mins.? @ -No Was critical care preformed (if so, how long)? @ -No Were there social determinants of health that impacted care today? How? (Homelessness, low income, unemployed, alcoholism, drug addiction, transportation, low edu. Level, literacy, decrease access to med. care, residential, rehab)? @ -No Was there de-escalation of care discussed even if they declined (Discuss DNR or withdrawal of care, Hospice)? DNR status @ -No What co-morbidities impacted this encounter? (DM, HTN, Smoking, COPD, CAD, Cancer, CVA, ARF, Chemo, Hep., AIDS, mental health diagnosis, sleep apnea, morbid obesity)? @ -COPD, nicotine dependence Was patient admitted / discharged? Hospital course, mention meds given and route, prescriptions, significant lab abnormalities, going to OR and other pertinent info. @ -Upon arrival patient seen and evaluated. IV is established. Laboratory studies were conducted. CT brain and chest x-ray are performed. Patient given antibiotics for abnormal UA. Recommended admission for possible rehab. Patient agreeable to this was a awaiting a bed on the floor Undiagnosed new problem with uncertain prognosis? @ -Yes Drug Therapy requiring intensive monitoring for toxicity (Heparin, Nitro, Insulin, Cardizem)? @ -No Were any procedures done? @ -No Diagnosis/symptom? @ -Acute encephalopathy, acute UTI, COPD exacerbation Acute, or Chronic, or Acute on Chronic? @ -Acute Uncomplicated (without systemic symptoms) or Complicated (systemic symptoms)? @ -Complicated Side effects of treatment? @ -No Exacerbation, Progression, or Severe Exacerbation? @ -No Poses a threat to life or bodily function? How? (Chest pain, [place], ND, pneumonia, PE, COPD, DKA, ARF, appy, cholecystitis, CVA, Diverticulitis, Homicidal, Suicidal, threat to staff... and all critical care pts) @ -No - Lab Data Result diagrams: 12/26/23 08:19 12/26/23 08:19 Lab Results 0612/19/23 12/19/23 Range/Units 13:18 13:18 13:18 WBC 7.6 (3.8-10.6) k/uL RBC 4.15 (3.80-5.40) m/uL Hgb 11.5 (11.4-16.0) gm/dL Hct 37.3 (34.0-46.0) % MCV 89.9 (80.0-100.0) fL MCH 27.8 (25.0-35.0) pg MCHC 30.9 L (31.0-37.0) g/dL RDW 12.9 (11.5-15.5) % Plt Count 278 (150-450) k/uL MPV 7.6 Immature Gran % (Auto) % Absolute Nucleated RBC % Neutrophils % 86 % Lymphocytes % 9 % Monocytes % 4 % Eosinophils % 0 % Basophils % 1 % Immature Gran # (0.00-0.04) X 10*3/uL Neutrophils # 6.5 (1.3-7.7) k/uL Lymphocytes # 0.7 L (1.0-4.8) k/uL Monocytes # 0.3 (0-1.0) k/uL Eosinophils # 0.0 (0-0.7) k/uL Basophils # 0.0 (0-0.2) k/uL NRBC/100 WBC Diff (0.00-0.01) X 10*3/uL PT 11.1 (10.0-12.5) sec INR 1.0 (<1.2) APTT 25.6 (22.0-30.0) sec VBG pH (7.31-7.41) VBG pCO2 (37-51) mmHg VBG HCO3 (24-28) mmol/L Sodium 138 (137-145) mmol/L Potassium 3.5 (3.5-5.1) mmol/L Chloride 99 (98-107) mmol/L Carbon Dioxide 35 H (22-30) mmol/L Anion Gap 4 mmol/L BUN 19 H (7-17) mg/dL Creatinine 0.56 (0.52-1.04) mg/dL Est GFR (CKD-EPI) (>=60) Est GFR (CKD-EPI)AfAm >90 (>60 ml/min/1.73 sqM) Est GFR (CKD-EPI)NonAf >90 (>60 ml/min/1.73 sqM) BUN/Creatinine Ratio (12.00-20.00) Ratio Glucose 86 (74-99) mg/dL POC Glucose (mg/dL) (70-110) mg/dL POC Glu Chief Optometry Service ID Estimated Ave Glu mg/dL mg/dL Hemoglobin A1c (<=6.0) % Uric Acid 3.3 L (3.7-7.4) mg/dL Calcium 8.5 (8.4-10.2) mg/dL Total Bilirubin 0.5 (0.2-1.3) mg/dL AST 18 (14-36) U/L ALT 6 (4-34) U/L Alkaline Phosphatase 99 (38-126) U/L Ammonia (<30) umol/L Troponin I (0.000-0.034) ng/mL Total Protein 6.3 (6.3-8.2) g/dL Albumin 3.3 L (3.5-5.0) g/dL TSH 1.680 (0.465-4.680) mIU/L Urine Color Urine Appearance (Clear) Urine pH (5.0-8.0) Ur Specific [place] (1.001-1.035) Urine Protein (Negative) Urine Glucose (UA) (Negative) Urine Ketones (Negative) Urine Blood (Negative) Urine Nitrite (Negative) Urine Bilirubin (Negative) Urine Urobilinogen (<2.0) mg/dL Ur Leukocyte Esterase (Negative) Urine RBC (0-5) /hpf Urine WBC (0-5) /hpf Ur Squamous Epith Cells (0-4) /hpf Urine Bacteria (None) /hpf Urine Mucus (None) /hpf Urine Opiates Screen (NotDetected) Ur Oxycodone Screen (NotDetected) Urine Methadone Screen (NotDetected) Ur Barbiturates Screen (NotDetected) U Tricyclic Antidepress (NotDetected) Ur Phencyclidine Scrn (NotDetected) Ur Amphetamines Screen (NotDetected) U Methamphetamines Scrn (NotDetected) U Benzodiazepines Scrn (NotDetected) Urine Cocaine Screen (NotDetected) U Marijuana (THC) Screen (NotDetected) Serum Alcohol <10 mg/dL 0612/19/23 12/19/23 Range/Units 13:18 13:18 13:18 WBC (3.8-10.6) k/uL RBC (3.80-5.40) m/uL Hgb (11.4-16.0) gm/dL Hct (34.0-46.0) % MCV (80.0-100.0) fL MCH (25.0-35.0) pg MCHC (31.0-37.0) g/dL RDW (11.5-15.5) % Plt Count (150-450) k/uL MPV Immature Gran % (Auto) % Absolute Nucleated RBC % Neutrophils % % Lymphocytes % % Monocytes % % Eosinophils % % Basophils % % Immature Gran # (0.00-0.04) X 10*3/uL Neutrophils # (1.3-7.7) k/uL Lymphocytes # (1.0-4.8) k/uL Monocytes # (0-1.0) k/uL Eosinophils # (0-0.7) k/uL Basophils # (0-0.2) k/uL NRBC/100 WBC Diff (0.00-0.01) X 10*3/uL PT (10.0-12.5) sec INR (<1.2) APTT (22.0-30.0) sec VBG pH 7.42 H (7.31-7.41) VBG pCO2 52 H (37-51) mmHg VBG HCO3 34 H (24-28) mmol/L Sodium (137-145) mmol/L Potassium (3.5-5.1) mmol/L Chloride (98-107) mmol/L Carbon Dioxide (22-30) mmol/L Anion Gap mmol/L BUN (7-17) mg/dL Creatinine (0.52-1.04) mg/dL Est GFR (CKD-EPI) (>=60) Est GFR (CKD-EPI)AfAm (>60 ml/min/1.73 sqM) Est GFR (CKD-EPI)NonAf (>60 ml/min/1.73 sqM) BUN/Creatinine Ratio (12.00-20.00) Ratio Glucose (74-99) mg/dL POC Glucose (mg/dL) (70-110) mg/dL POC Glu Chief Optometry Service ID Estimated Ave Glu mg/dL mg/dL Hemoglobin A1c (<=6.0) % Uric Acid (3.7-7.4) mg/dL Calcium (8.4-10.2) mg/dL Total Bilirubin (0.2-1.3) mg/dL AST (14-36) U/L ALT (4-34) U/L Alkaline Phosphatase (38-126) U/L Ammonia <9 (<30) umol/L Troponin I <0.012 (0.000-0.034) ng/mL Total Protein (6.3-8.2) g/dL Albumin (3.5-5.0) g/dL TSH (0.465-4.680) mIU/L Urine Color Urine Appearance (Clear) Urine pH (5.0-8.0) Ur Specific [place] (1.001-1.035) Urine Protein (Negative) Urine Glucose (UA) (Negative) Urine Ketones (Negative) Urine Blood (Negative) Urine Nitrite (Negative) Urine Bilirubin (Negative) Urine Urobilinogen (<2.0) mg/dL Ur Leukocyte Esterase (Negative) Urine RBC (0-5) /hpf Urine WBC (0-5) /hpf Ur Squamous Epith Cells (0-4) /hpf Urine Bacteria (None) /hpf Urine Mucus (None) /hpf Urine Opiates Screen (NotDetected) Ur Oxycodone Screen (NotDetected) Urine Methadone Screen (NotDetected) Ur Barbiturates Screen (NotDetected) U Tricyclic Antidepress (NotDetected) Ur Phencyclidine Scrn (NotDetected) Ur Amphetamines Screen (NotDetected) U Methamphetamines Scrn (NotDetected) U Benzodiazepines Scrn (NotDetected) Urine Cocaine Screen (NotDetected) U Marijuana (THC) Screen (NotDetected) Serum Alcohol mg/dL 12/19/23 12/19/23 12/19/23 Range/Units 15:03 16:05 16:05 WBC (3.8-10.6) k/uL RBC (3.80-5.40) m/uL Hgb (11.4-16.0) gm/dL Hct (34.0-46.0) % MCV (80.0-100.0) fL MCH (25.0-35.0) pg MCHC (31.0-37.0) g/dL RDW (11.5-15.5) % Plt Count (150-450) k/uL MPV Immature Gran % (Auto) % Absolute Nucleated RBC % Neutrophils % % Lymphocytes % % Monocytes % % Eosinophils % % Basophils % % Immature Gran # (0.00-0.04) X 10*3/uL Neutrophils # (1.3-7.7) k/uL Lymphocytes # (1.0-4.8) k/uL Monocytes # (0-1.0) k/uL Eosinophils # (0-0.7) k/uL Basophils # (0-0.2) k/uL NRBC/100 WBC Diff (0.00-0.01) X 10*3/uL PT (10.0-12.5) sec INR (<1.2) APTT (22.0-30.0) sec VBG pH (7.31-7.41) VBG pCO2 (37-51) mmHg VBG HCO3 (24-28) mmol/L Sodium (137-145) mmol/L Potassium (3.5-5.1) mmol/L Chloride (98-107) mmol/L Carbon Dioxide (22-30) mmol/L Anion Gap mmol/L BUN (7-17) mg/dL Creatinine (0.52-1.04) mg/dL Est GFR (CKD-EPI) (>=60) Est GFR (CKD-EPI)AfAm (>60 ml/min/1.73 sqM) Est GFR (CKD-EPI)NonAf (>60 ml/min/1.73 sqM) BUN/Creatinine Ratio (12.00-20.00) Ratio Glucose (74-99) mg/dL POC Glucose (mg/dL) 71 (70-110) mg/dL POC Glu Chief Optometry Service ID Reba Reinoso Estimated Ave Glu mg/dL mg/dL Hemoglobin A1c (<=6.0) % Uric Acid (3.7-7.4) mg/dL Calcium (8.4-10.2) mg/dL Total Bilirubin (0.2-1.3) mg/dL AST (14-36) U/L ALT (4-34) U/L Alkaline Phosphatase (38-126) U/L Ammonia (<30) umol/L Troponin I (0.000-0.034) ng/mL Total Protein (6.3-8.2) g/dL Albumin (3.5-5.0) g/dL TSH (0.465-4.680) mIU/L Urine Color Colorless Urine Appearance Cloudy H (Clear) Urine pH 7.0 (5.0-8.0) Ur Specific [place] 1.012 (1.001-1.035) Urine Protein Trace H (Negative) Urine Glucose (UA) Negative (Negative) Urine Ketones 1+ H (Negative) Urine Blood Small H (Negative) Urine Nitrite Negative (Negative) Urine Bilirubin Negative (Negative) Urine Urobilinogen <2.0 (<2.0) mg/dL Ur Leukocyte Esterase Large H (Negative) Urine RBC 47 H (0-5) /hpf Urine WBC 23 H (0-5) /hpf Ur Squamous Epith Cells 1 (0-4) /hpf Urine Bacteria Rare H (None) /hpf Urine Mucus Moderate H (None) /hpf Urine Opiates Screen Not Detected (NotDetected) Ur Oxycodone Screen Not Detected (NotDetected) Urine Methadone Screen Not Detected (NotDetected) Ur Barbiturates Screen Not Detected (NotDetected) U Tricyclic Antidepress Not Detected (NotDetected) Ur Phencyclidine Scrn Not Detected (NotDetected) Ur Amphetamines Screen Not Detected (NotDetected) U Methamphetamines Scrn Not Detected (NotDetected) U Benzodiazepines Scrn Not Detected (NotDetected) Urine Cocaine Screen Not Detected (NotDetected) U Marijuana (THC) Screen Not Detected (NotDetected) Serum Alcohol mg/dL 12/19/23 12/20/23 12/20/23 Range/Units 17:01 06:04 06:04 WBC 6.73 (3.8-10.6) k/uL RBC 3.92 L (3.80-5.40) m/uL Hgb 10.8 L (11.4-16.0) gm/dL Hct 35.0 L (34.0-46.0) % MCV 89.3 (80.0-100.0) fL MCH 27.6 (25.0-35.0) pg MCHC 30.9 L (31.0-37.0) g/dL RDW 12.8 (11.5-15.5) % Plt Count 275 (150-450) k/uL MPV 10.7 Immature Gran % (Auto) 0.30 % Absolute Nucleated RBC 0 % Neutrophils % 95.6 % Lymphocytes % 3.4 % Monocytes % 0.6 % Eosinophils % 0 % Basophils % 0.1 % Immature Gran # 0.02 (0.00-0.04) X 10*3/uL Neutrophils # 6.43 (1.3-7.7) k/uL Lymphocytes # 0.23 L (1.0-4.8) k/uL Monocytes # 0.04 L (0-1.0) k/uL Eosinophils # 0 L (0-0.7) k/uL Basophils # 0.01 (0-0.2) k/uL NRBC/100 WBC Diff 0 (0.00-0.01) X 10*3/uL PT (10.0-12.5) sec INR (<1.2) APTT (22.0-30.0) sec VBG pH (7.31-7.41) VBG pCO2 (37-51) mmHg VBG HCO3 (24-28) mmol/L Sodium 140 (137-145) mmol/L Potassium 3.5 (3.5-5.1) mmol/L Chloride 97 (98-107) mmol/L Carbon Dioxide 29.4 (22-30) mmol/L Anion Gap 13.60 H mmol/L BUN 21.0 (7-17) mg/dL Creatinine 0.8 (0.52-1.04) mg/dL Est GFR (CKD-EPI) 77 (>=60) Est GFR (CKD-EPI)AfAm (>60 ml/min/1.73 sqM) Est GFR (CKD-EPI)NonAf (>60 ml/min/1.73 sqM) BUN/Creatinine Ratio 26.25 H (12.00-20.00) Ratio Glucose 254 H (74-99) mg/dL POC Glucose (mg/dL) 120 H (70-110) mg/dL POC Glu Chief Optometry Service ID Reba Reinoso Estimated Ave Glu mg/dL mg/dL Hemoglobin A1c (<=6.0) % Uric Acid (3.7-7.4) mg/dL Calcium 8.7 (8.4-10.2) mg/dL Total Bilirubin (0.2-1.3) mg/dL AST (14-36) U/L ALT (4-34) U/L Alkaline Phosphatase (38-126) U/L Ammonia (<30) umol/L Troponin I (0.000-0.034) ng/mL Total Protein (6.3-8.2) g/dL Albumin (3.5-5.0) g/dL TSH (0.465-4.680) mIU/L Urine Color Urine Appearance (Clear) Urine pH (5.0-8.0) Ur Specific [place] (1.001-1.035) Urine Protein (Negative) Urine Glucose (UA) (Negative) Urine Ketones (Negative) Urine Blood (Negative) Urine Nitrite (Negative) Urine Bilirubin (Negative) Urine Urobilinogen (<2.0) mg/dL Ur Leukocyte Esterase (Negative) Urine RBC (0-5) /hpf Urine WBC (0-5) /hpf Ur Squamous Epith Cells (0-4) /hpf Urine Bacteria (None) /hpf Urine Mucus (None) /hpf Urine Opiates Screen (NotDetected) Ur Oxycodone Screen (NotDetected) Urine Methadone Screen (NotDetected) Ur Barbiturates Screen (NotDetected) U Tricyclic Antidepress (NotDetected) Ur Phencyclidine Scrn (NotDetected) Ur Amphetamines Screen (NotDetected) U Methamphetamines Scrn (NotDetected) U Benzodiazepines Scrn (NotDetected) Urine Cocaine Screen (NotDetected) U Marijuana (THC) Screen (NotDetected) Serum Alcohol mg/dL 12/21/23 12/21/23 12/21/23 Range/Units 05:50 06:51 06:51 WBC 12.53 H (3.8-10.6) k/uL RBC 3.75 L (3.80-5.40) m/uL Hgb 10.3 L (11.4-16.0) gm/dL Hct 33.3 L (34.0-46.0) % MCV 88.8 (80.0-100.0) fL MCH 27.5 (25.0-35.0) pg MCHC 30.9 L (31.0-37.0) g/dL RDW 13.2 (11.5-15.5) % Plt Count 302 (150-450) k/uL MPV 10.5 Immature Gran % (Auto) 0.70 % Absolute Nucleated RBC 0 % Neutrophils % 94.6 % Lymphocytes % 3.6 % Monocytes % 1.0 % Eosinophils % 0 % Basophils % 0.1 % Immature Gran # 0.09 H (0.00-0.04) X 10*3/uL Neutrophils # 11.86 H (1.3-7.7) k/uL Lymphocytes # 0.45 L (1.0-4.8) k/uL Monocytes # 0.12 L (0-1.0) k/uL Eosinophils # 0 L (0-0.7) k/uL Basophils # 0.01 (0-0.2) k/uL NRBC/100 WBC Diff 0 (0.00-0.01) X 10*3/uL PT (10.0-12.5) sec INR (<1.2) APTT (22.0-30.0) sec VBG pH (7.31-7.41) VBG pCO2 (37-51) mmHg VBG HCO3 (24-28) mmol/L Sodium (137-145) mmol/L Potassium (3.5-5.1) mmol/L Chloride (98-107) mmol/L Carbon Dioxide (22-30) mmol/L Anion Gap mmol/L BUN (7-17) mg/dL Creatinine (0.52-1.04) mg/dL Est GFR (CKD-EPI) (>=60) Est GFR (CKD-EPI)AfAm (>60 ml/min/1.73 sqM) Est GFR (CKD-EPI)NonAf (>60 ml/min/1.73 sqM) BUN/Creatinine Ratio (12.00-20.00) Ratio Glucose (74-99) mg/dL POC Glucose (mg/dL) 162 H (70-110) mg/dL POC Glu Chief Optometry Service ID Steph Topete Estimated Ave Glu mg/dL 114 mg/dL Hemoglobin A1c 5.6 (<=6.0) % Uric Acid (3.7-7.4) mg/dL Calcium (8.4-10.2) mg/dL Total Bilirubin (0.2-1.3) mg/dL AST (14-36) U/L ALT (4-34) U/L Alkaline Phosphatase (38-126) U/L Ammonia (<30) umol/L Troponin I (0.000-0.034) ng/mL Total Protein (6.3-8.2) g/dL Albumin (3.5-5.0) g/dL TSH (0.465-4.680) mIU/L Urine Color Urine Appearance (Clear) Urine pH (5.0-8.0) Ur Specific [place] (1.001-1.035) Urine Protein (Negative) Urine Glucose (UA) (Negative) Urine Ketones (Negative) Urine Blood (Negative) Urine Nitrite (Negative) Urine Bilirubin (Negative) Urine Urobilinogen (<2.0) mg/dL Ur Leukocyte Esterase (Negative) Urine RBC (0-5) /hpf Urine WBC (0-5) /hpf Ur Squamous Epith Cells (0-4) /hpf Urine Bacteria (None) /hpf Urine Mucus (None) /hpf Urine Opiates Screen (NotDetected) Ur Oxycodone Screen (NotDetected) Urine Methadone Screen (NotDetected) Ur Barbiturates Screen (NotDetected) U Tricyclic Antidepress (NotDetected) Ur Phencyclidine Scrn (NotDetected) Ur Amphetamines Screen (NotDetected) U Methamphetamines Scrn (NotDetected) U Benzodiazepines Scrn (NotDetected) Urine Cocaine Screen (NotDetected) U Marijuana (THC) Screen (NotDetected) Serum Alcohol mg/dL 12/21/23 12/21/23 12/21/23 Range/Units 06:51 11:43 16:55 WBC (3.8-10.6) k/uL RBC (3.80-5.40) m/uL Hgb (11.4-16.0) gm/dL Hct (34.0-46.0) % MCV (80.0-100.0) fL MCH (25.0-35.0) pg MCHC (31.0-37.0) g/dL RDW (11.5-15.5) % Plt Count (150-450) k/uL MPV Immature Gran % (Auto) % Absolute Nucleated RBC % Neutrophils % % Lymphocytes % % Monocytes % % Eosinophils % % Basophils % % Immature Gran # (0.00-0.04) X 10*3/uL Neutrophils # (1.3-7.7) k/uL Lymphocytes # (1.0-4.8) k/uL Monocytes # (0-1.0) k/uL Eosinophils # (0-0.7) k/uL Basophils # (0-0.2) k/uL NRBC/100 WBC Diff (0.00-0.01) X 10*3/uL PT (10.0-12.5) sec INR (<1.2) APTT (22.0-30.0) sec VBG pH (7.31-7.41) VBG pCO2 (37-51) mmHg VBG HCO3 (24-28) mmol/L Sodium 142 (137-145) mmol/L Potassium 3.5 (3.5-5.1) mmol/L Chloride 102 (98-107) mmol/L Carbon Dioxide 28.5 (22-30) mmol/L Anion Gap 11.50 mmol/L BUN 25.4 (7-17) mg/dL Creatinine 0.8 (0.52-1.04) mg/dL Est GFR (CKD-EPI) 77 (>=60) Est GFR (CKD-EPI)AfAm (>60 ml/min/1.73 sqM) Est GFR (CKD-EPI)NonAf (>60 ml/min/1.73 sqM) BUN/Creatinine Ratio 31.75 H (12.00-20.00) Ratio Glucose 158 H (74-99) mg/dL POC Glucose (mg/dL) 177 H 188 H (70-110) mg/dL POC Glu [facility] Service ID Anthony Smithderick [address] Glu mg/dL mg/dL Hemoglobin A1c (<=6.0) % Uric Acid (3.7-7.4) mg/dL Calcium 8.8 (8.4-10.2) mg/dL Total Bilirubin (0.2-1.3) mg/dL AST (14-36) U/L ALT (4-34) U/L Alkaline Phosphatase (38-126) U/L Ammonia (<30) umol/L Troponin I (0.000-0.034) ng/mL Total Protein (6.3-8.2) g/dL Albumin (3.5-5.0) g/dL TSH (0.465-4.680) mIU/L Urine Color Urine Appearance (Clear) Urine pH (5.0-8.0) Ur Specific [place] (1.001-1.035) Urine Protein (Negative) Urine Glucose (UA) (Negative) Urine Ketones (Negative) Urine Blood (Negative) Urine Nitrite (Negative) Urine Bilirubin (Negative) Urine Urobilinogen (<2.0) mg/dL Ur Leukocyte Esterase (Negative) Urine RBC (0-5) /hpf Urine WBC (0-5) /hpf Ur Squamous Epith Cells (0-4) /hpf Urine Bacteria (None) /hpf Urine Mucus (None) /hpf Urine Opiates Screen (NotDetected) Ur Oxycodone Screen (NotDetected) Urine Methadone Screen (NotDetected) Ur Barbiturates Screen (NotDetected) U Tricyclic Antidepress (NotDetected) Ur Phencyclidine Scrn (NotDetected) Ur Amphetamines Screen (NotDetected) U Methamphetamines Scrn (NotDetected) U Benzodiazepines Scrn (NotDetected) Urine Cocaine Screen (NotDetected) U Marijuana (THC) Screen (NotDetected) Serum Alcohol mg/dL 12/21/23 12/22/23 12/22/23 Range/Units 20:43 05:53 11:43 WBC (3.8-10.6) k/uL RBC (3.80-5.40) m/uL Hgb (11.4-16.0) gm/dL Hct (34.0-46.0) % MCV (80.0-100.0) fL MCH (25.0-35.0) pg MCHC (31.0-37.0) g/dL RDW (11.5-15.5) % Plt Count (150-450) k/uL MPV Immature Gran % (Auto) % Absolute Nucleated RBC % Neutrophils % % Lymphocytes % % Monocytes % % Eosinophils % % Basophils % % Immature Gran # (0.00-0.04) X 10*3/uL Neutrophils # (1.3-7.7) k/uL Lymphocytes # (1.0-4.8) k/uL Monocytes # (0-1.0) k/uL Eosinophils # (0-0.7) k/uL Basophils # (0-0.2) k/uL NRBC/100 WBC Diff (0.00-0.01) X 10*3/uL PT (10.0-12.5) sec INR (<1.2) APTT (22.0-30.0) sec VBG pH (7.31-7.41) VBG pCO2 (37-51) mmHg VBG HCO3 (24-28) mmol/L Sodium (137-145) mmol/L Potassium (3.5-5.1) mmol/L Chloride (98-107) mmol/L Carbon Dioxide (22-30) mmol/L Anion Gap mmol/L BUN (7-17) mg/dL Creatinine (0.52-1.04) mg/dL Est GFR (CKD-EPI) (>=60) Est GFR (CKD-EPI)AfAm (>60 ml/min/1.73 sqM) Est GFR (CKD-EPI)NonAf (>60 ml/min/1.73 sqM) BUN/Creatinine Ratio (12.00-20.00) Ratio Glucose (74-99) mg/dL POC Glucose (mg/dL) 212 H 130 H 188 H (70-110) mg/dL POC Glu Chief Optometry Service Ashanti Zavala Nora Laney, Jessie [address] Glu mg/dL mg/dL Hemoglobin A1c (<=6.0) % Uric Acid (3.7-7.4) mg/dL Calcium (8.4-10.2) mg/dL Total Bilirubin (0.2-1.3) mg/dL AST (14-36) U/L ALT (4-34) U/L Alkaline Phosphatase (38-126) U/L Ammonia (<30) umol/L Troponin I (0.000-0.034) ng/mL Total Protein (6.3-8.2) g/dL Albumin (3.5-5.0) g/dL TSH (0.465-4.680) mIU/L Urine Color Urine Appearance (Clear) Urine pH (5.0-8.0) Ur Specific [place] (1.001-1.035) Urine Protein (Negative) Urine Glucose (UA) (Negative) Urine Ketones (Negative) Urine Blood (Negative) Urine Nitrite (Negative) Urine Bilirubin (Negative) Urine Urobilinogen (<2.0) mg/dL Ur Leukocyte Esterase (Negative) Urine RBC (0-5) /hpf Urine WBC (0-5) /hpf Ur Squamous Epith Cells (0-4) /hpf Urine Bacteria (None) /hpf Urine Mucus (None) /hpf Urine Opiates Screen (NotDetected) Ur Oxycodone Screen (NotDetected) Urine Methadone Screen (NotDetected) Ur Barbiturates Screen (NotDetected) U Tricyclic Antidepress (NotDetected) Ur Phencyclidine Scrn (NotDetected) Ur Amphetamines Screen (NotDetected) U Methamphetamines Scrn (NotDetected) U Benzodiazepines Scrn (NotDetected) Urine Cocaine Screen (NotDetected) U Marijuana (THC) Screen (NotDetected) Serum Alcohol mg/dL 12/22/23 12/22/23 12/23/23 Range/Units 17:16 20:19 05:43 WBC (3.8-10.6) k/uL RBC (3.80-5.40) m/uL Hgb (11.4-16.0) gm/dL Hct (34.0-46.0) % MCV (80.0-100.0) fL MCH (25.0-35.0) pg MCHC (31.0-37.0) g/dL RDW (11.5-15.5) % Plt Count (150-450) k/uL MPV Immature Gran % (Auto) % Absolute Nucleated RBC % Neutrophils % % Lymphocytes % % Monocytes % % Eosinophils % % Basophils % % Immature Gran # (0.00-0.04) X 10*3/uL Neutrophils # (1.3-7.7) k/uL Lymphocytes # (1.0-4.8) k/uL Monocytes # (0-1.0) k/uL Eosinophils # (0-0.7) k/uL Basophils # (0-0.2) k/uL NRBC/100 WBC Diff (0.00-0.01) X 10*3/uL PT (10.0-12.5) sec INR (<1.2) APTT (22.0-30.0) sec VBG pH (7.31-7.41) VBG pCO2 (37-51) mmHg VBG HCO3 (24-28) mmol/L Sodium (137-145) mmol/L Potassium (3.5-5.1) mmol/L Chloride (98-107) mmol/L Carbon Dioxide (22-30) mmol/L Anion Gap mmol/L BUN (7-17) mg/dL Creatinine (0.52-1.04) mg/dL Est GFR (CKD-EPI) (>=60) Est GFR (CKD-EPI)AfAm (>60 ml/min/1.73 sqM) Est GFR (CKD-EPI)NonAf (>60 ml/min/1.73 sqM) BUN/Creatinine Ratio (12.00-20.00) Ratio Glucose (74-99) mg/dL POC Glucose (mg/dL) 224 H 126 H 121 H (70-110) mg/dL POC Glu Chief Optometry Service ID Debi Kong, Molly Jozef, Molly [address] Glu mg/dL mg/dL Hemoglobin A1c (<=6.0) % Uric Acid (3.7-7.4) mg/dL Calcium (8.4-10.2) mg/dL Total Bilirubin (0.2-1.3) mg/dL AST (14-36) U/L ALT (4-34) U/L Alkaline Phosphatase (38-126) U/L Ammonia (<30) umol/L Troponin I (0.000-0.034) ng/mL Total Protein (6.3-8.2) g/dL Albumin (3.5-5.0) g/dL TSH (0.465-4.680) mIU/L Urine Color Urine Appearance (Clear) Urine pH (5.0-8.0) Ur Specific [place] (1.001-1.035) Urine Protein (Negative) Urine Glucose (UA) (Negative) Urine Ketones (Negative) Urine Blood (Negative) Urine Nitrite (Negative) Urine Bilirubin (Negative) Urine Urobilinogen (<2.0) mg/dL Ur Leukocyte Esterase (Negative) Urine RBC (0-5) /hpf Urine WBC (0-5) /hpf Ur Squamous Epith Cells (0-4) /hpf Urine Bacteria (None) /hpf Urine Mucus (None) /hpf Urine Opiates Screen (NotDetected) Ur Oxycodone Screen (NotDetected) Urine Methadone Screen (NotDetected) Ur Barbiturates Screen (NotDetected) U Tricyclic Antidepress (NotDetected) Ur Phencyclidine Scrn (NotDetected) Ur Amphetamines Screen (NotDetected) U Methamphetamines Scrn (NotDetected) U Benzodiazepines Scrn (NotDetected) Urine Cocaine Screen (NotDetected) U Marijuana (THC) Screen (NotDetected) Serum Alcohol mg/dL 12/23/23 12/23/23 12/23/23 Range/Units 11:30 12:39 12:39 WBC 9.8 (3.8-10.6) k/uL RBC 4.47 (3.80-5.40) m/uL Hgb 12.3 (11.4-16.0) gm/dL Hct 40.4 (34.0-46.0) % MCV 90.4 (80.0-100.0) fL MCH 27.6 (25.0-35.0) pg MCHC 30.5 L (31.0-37.0) g/dL RDW 13.4 (11.5-15.5) % Plt Count 363 (150-450) k/uL MPV 7.4 Immature Gran % (Auto) % Absolute Nucleated RBC % Neutrophils % 91 % Lymphocytes % 6 % Monocytes % 3 % Eosinophils % 0 % Basophils % 0 % Immature Gran # (0.00-0.04) X 10*3/uL Neutrophils # 8.9 H (1.3-7.7) k/uL Lymphocytes # 0.6 L (1.0-4.8) k/uL Monocytes # 0.3 (0-1.0) k/uL Eosinophils # 0.0 (0-0.7) k/uL Basophils # 0.0 (0-0.2) k/uL NRBC/100 WBC Diff (0.00-0.01) X 10*3/uL PT (10.0-12.5) sec INR (<1.2) APTT (22.0-30.0) sec VBG pH (7.31-7.41) VBG pCO2 (37-51) mmHg VBG HCO3 (24-28) mmol/L Sodium 133 L (137-145) mmol/L Potassium 3.7 (3.5-5.1) mmol/L Chloride 96 L (98-107) mmol/L Carbon Dioxide 30 (22-30) mmol/L Anion Gap 7 mmol/L BUN 19 H (7-17) mg/dL Creatinine 0.60 (0.52-1.04) mg/dL Est GFR (CKD-EPI) (>=60) Est GFR (CKD-EPI)AfAm >90 (>60 ml/min/1.73 sqM) Est GFR (CKD-EPI)NonAf 90 (>60 ml/min/1.73 sqM) BUN/Creatinine Ratio (12.00-20.00) Ratio Glucose 126 H (74-99) mg/dL POC Glucose (mg/dL) 119 H (70-110) mg/dL POC Glu Chief Optometry Service ID Debi Kong Estimated [address] Glu mg/dL mg/dL Hemoglobin A1c (<=6.0) % Uric Acid (3.7-7.4) mg/dL Calcium 8.8 (8.4-10.2) mg/dL Total Bilirubin (0.2-1.3) mg/dL AST (14-36) U/L ALT (4-34) U/L Alkaline Phosphatase (38-126) U/L Ammonia (<30) umol/L Troponin I (0.000-0.034) ng/mL Total Protein (6.3-8.2) g/dL Albumin (3.5-5.0) g/dL TSH (0.465-4.680) mIU/L Urine Color Urine Appearance (Clear) Urine pH (5.0-8.0) Ur Specific [place] (1.001-1.035) Urine Protein (Negative) Urine Glucose (UA) (Negative) Urine Ketones (Negative) Urine Blood (Negative) Urine Nitrite (Negative) Urine Bilirubin (Negative) Urine Urobilinogen (<2.0) mg/dL Ur Leukocyte Esterase (Negative) Urine RBC (0-5) /hpf Urine WBC (0-5) /hpf Ur Squamous Epith Cells (0-4) /hpf Urine Bacteria (None) /hpf Urine Mucus (None) /hpf Urine Opiates Screen (NotDetected) Ur Oxycodone Screen (NotDetected) Urine Methadone Screen (NotDetected) Ur Barbiturates Screen (NotDetected) U Tricyclic Antidepress (NotDetected) Ur Phencyclidine Scrn (NotDetected) Ur Amphetamines Screen (NotDetected) U Methamphetamines Scrn (NotDetected) U Benzodiazepines Scrn (NotDetected) Urine Cocaine Screen (NotDetected) U Marijuana (THC) Screen (NotDetected) Serum Alcohol mg/dL 12/23/23 12/23/23 12/24/23 Range/Units 16:40 20:23 03:18 WBC 7.80 (3.8-10.6) k/uL RBC 3.69 L (3.80-5.40) m/uL Hgb 10.2 L (11.4-16.0) gm/dL Hct 33.9 L (34.0-46.0) % MCV 91.9 (80.0-100.0) fL MCH 27.6 (25.0-35.0) pg MCHC 30.1 L (31.0-37.0) g/dL RDW 13.7 (11.5-15.5) % Plt Count 320 (150-450) k/uL MPV 10.6 Immature Gran % (Auto) 2.20 % Absolute Nucleated RBC 0 % Neutrophils % 67.1 % Lymphocytes % 22.2 % Monocytes % 7.9 % Eosinophils % 0.3 % Basophils % 0.3 % Immature Gran # 0.17 H (0.00-0.04) X 10*3/uL Neutrophils # 5.24 (1.3-7.7) k/uL Lymphocytes # 1.73 (1.0-4.8) k/uL Monocytes # 0.62 (0-1.0) k/uL Eosinophils # 0.02 L (0-0.7) k/uL Basophils # 0.02 (0-0.2) k/uL NRBC/100 WBC Diff 0 (0.00-0.01) X 10*3/uL PT (10.0-12.5) sec INR (<1.2) APTT (22.0-30.0) sec VBG pH (7.31-7.41) VBG pCO2 (37-51) mmHg VBG HCO3 (24-28) mmol/L Sodium (137-145) mmol/L Potassium (3.5-5.1) mmol/L Chloride (98-107) mmol/L Carbon Dioxide (22-30) mmol/L Anion Gap mmol/L BUN (7-17) mg/dL Creatinine (0.52-1.04) mg/dL Est GFR (CKD-EPI) (>=60) Est GFR (CKD-EPI)AfAm (>60 ml/min/1.73 sqM) Est GFR (CKD-EPI)NonAf (>60 ml/min/1.73 sqM) BUN/Creatinine Ratio (12.00-20.00) Ratio Glucose (74-99) mg/dL POC Glucose (mg/dL) 144 H 123 H (70-110) mg/dL POC Glu Chief Optometry Service SAVANNA Debi Kong Jozef, Kalib [address] Glu mg/dL mg/dL Hemoglobin A1c (<=6.0) % Uric Acid (3.7-7.4) mg/dL Calcium (8.4-10.2) mg/dL Total Bilirubin (0.2-1.3) mg/dL AST (14-36) U/L ALT (4-34) U/L Alkaline Phosphatase (38-126) U/L Ammonia (<30) umol/L Troponin I (0.000-0.034) ng/mL Total Protein (6.3-8.2) g/dL Albumin (3.5-5.0) g/dL TSH (0.465-4.680) mIU/L Urine Color Urine Appearance (Clear) Urine pH (5.0-8.0) Ur Specific [place] (1.001-1.035) Urine Protein (Negative) Urine Glucose (UA) (Negative) Urine Ketones (Negative) Urine Blood (Negative) Urine Nitrite (Negative) Urine Bilirubin (Negative) Urine Urobilinogen (<2.0) mg/dL Ur Leukocyte Esterase (Negative) Urine RBC (0-5) /hpf Urine WBC (0-5) /hpf Ur Squamous Epith Cells (0-4) /hpf Urine Bacteria (None) /hpf Urine Mucus (None) /hpf Urine Opiates Screen (NotDetected) Ur Oxycodone Screen (NotDetected) Urine Methadone Screen (NotDetected) Ur Barbiturates Screen (NotDetected) U Tricyclic Antidepress (NotDetected) Ur Phencyclidine Scrn (NotDetected) Ur Amphetamines Screen (NotDetected) U Methamphetamines Scrn (NotDetected) U Benzodiazepines Scrn (NotDetected) Urine Cocaine Screen (NotDetected) U Marijuana (THC) Screen (NotDetected) Serum Alcohol mg/dL 12/24/23 12/24/23 Range/Units 03:18 05:46 WBC (3.8-10.6) k/uL RBC (3.80-5.40) m/uL Hgb (11.4-16.0) gm/dL Hct (34.0-46.0) % MCV (80.0-100.0) fL MCH (25.0-35.0) pg MCHC (31.0-37.0) g/dL RDW (11.5-15.5) % Plt Count (150-450) k/uL MPV Immature Gran % (Auto) % Absolute Nucleated RBC % Neutrophils % % Lymphocytes % % Monocytes % % Eosinophils % % Basophils % % Immature Gran # (0.00-0.04) X 10*3/uL Neutrophils # (1.3-7.7) k/uL Lymphocytes # (1.0-4.8) k/uL Monocytes # (0-1.0) k/uL Eosinophils # (0-0.7) k/uL Basophils # (0-0.2) k/uL NRBC/100 WBC Diff (0.00-0.01) X 10*3/uL PT (10.0-12.5) sec INR (<1.2) APTT (22.0-30.0) sec VBG pH (7.31-7.41) VBG pCO2 (37-51) mmHg VBG HCO3 (24-28) mmol/L Sodium 140 (137-145) mmol/L Potassium 3.9 (3.5-5.1) mmol/L Chloride 101 (98-107) mmol/L Carbon Dioxide 29.5 (22-30) mmol/L Anion Gap 9.50 mmol/L BUN 25.1 (7-17) mg/dL Creatinine 0.7 (0.52-1.04) mg/dL Est GFR (CKD-EPI) 90 (>=60) Est GFR (CKD-EPI)AfAm (>60 ml/min/1.73 sqM) Est GFR (CKD-EPI)NonAf (>60 ml/min/1.73 sqM) BUN/Creatinine Ratio 35.86 H (12.00-20.00) Ratio Glucose 94 (74-99) mg/dL POC Glucose (mg/dL) 84 (70-110) mg/dL POC Glu Chief Optometry Service ID Molly Haskins Est[address] Glu mg/dL mg/dL Hemoglobin A1c (<=6.0) % Uric Acid (3.7-7.4) mg/dL Calcium 8.5 L (8.4-10.2) mg/dL Total Bilirubin (0.2-1.3) mg/dL AST (14-36) U/L ALT (4-34) U/L Alkaline Phosphatase (38-126) U/L Ammonia (<30) umol/L Troponin I (0.000-0.034) ng/mL Total Protein (6.3-8.2) g/dL Albumin (3.5-5.0) g/dL TSH (0.465-4.680) mIU/L Urine Color Urine Appearance (Clear) Urine pH (5.0-8.0) Ur Specific [place] (1.001-1.035) Urine Protein (Negative) Urine Glucose (UA) (Negative) Urine Ketones (Negative) Urine Blood (Negative) Urine Nitrite (Negative) Urine Bilirubin (Negative) Urine Urobilinogen (<2.0) mg/dL Ur Leukocyte Esterase (Negative) Urine RBC (0-5) /hpf Urine WBC (0-5) /hpf Ur Squamous Epith Cells (0-4) /hpf Urine Bacteria (None) /hpf Urine Mucus (None) /hpf Urine Opiates Screen (NotDetected) Ur Oxycodone Screen (NotDetected) Urine Methadone Screen (NotDetected) Ur Barbiturates Screen (NotDetected) U Tricyclic Antidepress (NotDetected) Ur Phencyclidine Scrn (NotDetected) Ur Amphetamines Screen (NotDetected) U Methamphetamines Scrn (NotDetected) U Benzodiazepines Scrn (NotDetected) Urine Cocaine Screen (NotDetected) U Marijuana (THC) Screen (NotDetected) Serum Alcohol mg/dL Disposition Clinical Impression: UTI (urinary tract infection), Dehydration, COPD (chronic obstructive pulmonary disease), Constrictive jewelry of finger, Acute encephalopathy Disposition: ADMITTED IP TO THIS HOSP Condition: Stable Is patient prescribed a controlled substance at d/c from ED?: No Time of Disposition: 16:59 Decision to Admit Reason: Admit from EC Decision Date: 12/19/23 Decision Time: 16:59
[2023-12-19 16:31] LABS: Appearance,Urine Cloudy (Clear); Bacteria,Urine Rare /hpf; Bilirubin,Urine Negative (Negative); Blood,Urine Small (Negative); Color,Urine Colorless; Glucose,Urine (UA) Negative (Negative); Ketones,Urine 1+ (Negative); Leukocyte Esterase,Urine Large (Negative); Mucus,Urine Moderate /hpf; Nitrite,Urine Negative (Negative); Protein,Urine Trace (Negative); RBC,Urine 47 /hpf (0-5); Specific Gravity,Urine 1.012 (1.001-1.035); Squamous Epithelial Cell,Urine 1 /hpf (0-4); Urobilinogen,Urine <2.0 mg/dL (<2.0); WBC,Urine 23 /hpf (0-5)
[2023-12-19] MEDS: IPRATROPIUM-ALBUTEROL 3 ML NEB INHALATION STA (16:39)
[2023-12-19 16:56] LABS: Amphetamine Screen,Urine Not Detected (NotDetected); Barbiturate Screen,Urine Not Detected (NotDetected); Benzodiazepines Screen,Urine Not Detected (NotDetected); Cocaine Screen,Urine Not Detected (NotDetected); Methadone Screen, Urine Not Detected (NotDetected); Opiate Screen,Urine Not Detected (NotDetected); Oxycodone Screen, Urine Not Detected (NotDetected); Phencyclidine Screen,Urine Not Detected (NotDetected); Tricyclic Antidepressant,Urine Not Detected (NotDetected); Urn Cannabinoid Scrn Not Detected (NotDetected)
[2023-12-19] MEDS: methylPREDNISolone SOD SUCCI 125 MG/2 ML VIAL IV STA (16:57)
[2023-12-19] MEDS ORDERED: NALOXONE 0.4 MG/ML 1 ML VIAL IV PRN (16:59)
[2023-12-19 17:02] LABS: Glucose,Whole Blood 120 mg/dL (70-110)
[2023-12-19] MEDS: cefTRIAXone IN SWFI 1,000 MG/10 ML SYRINGE IVP STA (18:21)
[2023-12-19] MEDS: IPRATROPIUM-ALBUTEROL 3 ML NEB INHALATION SCH (20:53)
[2023-12-20] MEDS: methylPREDNISolone SOD SUCCI 40 MG/ML 1 ML VIAL IV SCH (00:32)
[2023-12-20 08:42] LABS: BUN/Creat Ratio 26.25 Ratio (12.00-20.00); Calcium 8.7 mg/dL (8.7-10.3); Carbon Dioxide 29.4 mmol/L (21.6-31.8); Chloride 97 mmol/L (96-109); Glucose 254 mg/dL (70-110); Potassium 3.5 mmol/L (3.5-5.5); Sodium 140 mmol/L (135-145)
[2023-12-20 08:49] LABS: Basophils # (A) 0.01 X 10*3/uL (0.00-0.10); Basophils % (A) 0.1 %; Eosinophils # (A) 0 X 10*3/uL (0.04-0.35); Eosinophils % (A) 0 %; HGB 10.8 g/dL (12.0-15.0); Lymphocytes # (A) 0.23 X 10*3/uL (0.90-5.00); Lymphocytes % (A) 3.4 %; MCH 27.6 pg (27.0-32.0); MCHC 30.9 g/dL (32.0-37.0); MCV 89.3 FL (80.0-97.0); Mean Platelet Volume 10.7 FL (9.5-12.2); Monocytes # (A) 0.04 X 10*3/uL (0.20-1.00); Monocytes % (A) 0.6 %; NRBC Per 100 WBC 0 X 10*3/uL (0.00-0.01); Neutrophils # (A) 6.43 X 10*3/uL (1.80-7.70); Neutrophils % (A) 95.6 %; Platelet Count 275 X 10*3/uL (140-440); RBC 3.92 X 10*6/uL (4.10-5.20); RDW 12.8 % (11.5-14.5); WBC 6.73 X 10*3/uL (4.50-10.00)
[2023-12-20] MEDS: SODIUM CHLORIDE 0.9% 1,000 ML IV SCH (17:00)
[2023-12-20] MEDS ORDERED: DEXTROSE 50% SYRINGE 50 ML IVP PRN ×2 (22:43)
--- NOTE | 2023-12-20 22:53 | P.HPIM ---
History of Present Illness H&P Date: 12/20/23 Chief Complaint: Altered mental status Patient is a 73-year-old female with a past medical history of hypertension, COPD on home oxygen at 2 L via nasal cannula anxiety/depression and currently everyday smoker was brought to the hospital due to altered mental status and increased work of breathing. Patient is awake alert and able to communicate but unable to provide reliable history. According to her [id number] that she went to patient's house and found her to be very confused and talkative with full throat not presented to the house. She also looks like struggling to breathe. Patient on home oxygen 24 hours a day and only takes off to smoke. Patient otherwise continues to smoke. Patient has not been compliant with her medication including nebulizer at home. She has not been taking medication for the past 6 months. Patient is also having generalized weakness and difficulty walking due to pain in her legs. Patient was in the ER 2 days ago due to her right finger was stuck in the ring and swelling. She was started on indomethacin and also antibiotics at home for the swelling but however she did not start taking her medications. She is not eating or drinking. EMS was called and patient was brought to ER. CT head showed atrophy and chronic appearing periventricular white matter ischemic changes. Chest x-ray showed no evidence for acute pulmonary process. EKG showed sinus rhythm with frequent supraventricular premature complexes. Laboratory data showed WBC 7.6 hemoglobin 11.5 and platelets 278 ABG showed pH 7.42 pCO2 52 and bicarb is 34 Sodium 138 potassium 3.5 chloride 99 bicarb is 35 BUN 19 and creatinine 0.56 and blood sugar 86 uric acid 3.3 11 years elevated. Ammonia less than 9 and TSH within normal limits at 1.68. Urinalysis showed cloudy with trace protein 1+ ketone large leukocyte esterase with elevated RBCs and WBCs. Review of Systems ROS unobtainable: due to mental status Past Medical History Past Medical History: COPD, Hypertension Additional Past Medical History / Comment(s): [employer] History of Any Multi-Drug Resistant Organisms: None Reported Past Surgical History: Section Additional Past Surgical History / Comment(s): vain stripping left leg Past Anesthesia/Blood Transfusion Reactions: No Reported Reaction Past Psychological History: Anxiety, Depression Smoking Status: Current every day smoker Past Alcohol Use History: None Reported Additional Past Alcohol Use History / Comment(s): Pt states she has not had alcohol in 2 years. Past Drug Use History: None Reported - Past Family History Mother Family Medical History: No Reported History Additional Family Medical History / Comment(s): at 80 years old of old age. Father Family Medical History: No Reported History Additional Family Medical History / Comment(s): at 85 years old of old age. Medications and Allergies Home Medications Medication Instructions Recorded Confirmed Type No Known Home Medications 12/19/23 12/19/23 History Allergies Allergy/AdvReac Type Severity Reaction Status Date / Time No Known Allergies Allergy Verified 12/19/23 13:03 Physical Exam Vitals: Vital Signs Temp Pulse Pulse Resp BP BP Pulse Ox 12/20/23 20:57 84 12/20/23 20:47 76 12/20/23 17:57 97.4 F L 83 18 101/66 94 L 12/20/23 16:20 82 12/20/23 16:00 80 12/20/23 14:00 98.1 F 84 19 108/70 12/20/23 12:36 78 12/20/23 12:25 80 12/20/23 09:23 78 12/20/23 09:14 78 12/20/23 08:00 98 F 65 17 127/71 99 12/20/23 03:52 76 12/20/23 03:43 72 12/20/23 02:22 98.3 F 71 18 122/70 100 12/20/23 00:26 72 12/20/23 00:15 76 Intake and Output 12/20/23 12/20/23 12/20/23 06:59 14:59 22:59 Intake Total 476 296 Balance 476 296 Intake: Oral 476 296 Other: Voiding Method External Catheter # Voids 1 PHYSICAL EXAMINATION: Patient is lying in the bed comfortably, no acute distress, awake alert but disoriented and confused HEENT: Normocephalic. Neck is supple. Pupils reactive. Nostrils clear. Oral cavity is moist. Neck reveals no JVD, carotid bruits, or thyromegaly. CHEST EXAMINATION: Trachea is central. Symmetrical expansion. Bilateral diminished sounds and expiratory wheezing. Nonlabored breathing. CARDIAC: Normal S1, S2 with no gallops. No murmurs ABDOMEN: Soft. Bowel sounds normal. No organomegaly. No abdominal bruits. Extremities: reveal no edema. No clubbing or cyanosis Neurologically awake, alert, oriented x 1-2. Able to move all extremities.. No gross focal deficits noted Skin: No rash or skin lesions. Psychiatric: Coperative. Could not be specific completely Musculoskeletal: No joint swelling or deformity. Results CBC & Chem 7: 12/20/23 06:04 12/20/23 06:04 Labs: Abnormal Lab Results - Last 24 Hours (Table) 12/20/23 12/20/23 Range/Units 06:04 06:04 RBC 3.92 L (4.10-5.20) X 10*6/uL Hgb 10.8 L (12.0-15.0) g/dL Hct 35.0 L (37.2-46.3) % MCHC 30.9 L (32.0-37.0) g/dL Lymphocytes # 0.23 L (0.90-5.00) X 10*3/uL Monocytes # 0.04 L (0.20-1.00) X 10*3/uL Eosinophils # 0 L (0.04-0.35) X 10*3/uL Anion Gap 13.60 H (4.00-12.00) mmol/L BUN/Creatinine Ratio 26.25 H (12.00-20.00) Ratio Glucose 254 H (70-110) mg/dL Thrombosis Risk Factor Assmnt - DVT/VTE Prophylaxis DVT/VTE Prophylaxis: Pharmacologic Prophylaxis ordered - Choose All That Apply Any of the Below Risk Factors Present?: No Other Risk Factors: No Other congenital or acquired thrombophilia - If yes, enter type in comment: No Thrombosis Risk Factor Assessment Level: Very Low Risk Assessment and Plan Assessment: Shortness of breath secondary to acute COPD exacerbation Chronic hypoxic respiratory failure on 2 L oxygen via nasal cannula Altered mental status possible CO2 narcosis and metabolic encephalopathy Acute urinary tract infection Ongoing nicotine addiction Hypertension Noncompliance with medications and follow-up Mild to moderate protein calorie malnutrition DVT prophylaxis heparin subcu Plan: Patient will be continued on oxygen supplementation. Continue with DuoNebs and IV Solu-Medrol 40 mg every 8. Continue with ceftriaxone 1 g daily and follow-up urine culture report. Gentle IV hydration monitor respiratory status. Follow-up closely. Prognosis guarded. PT OT will be consulted. Time with Patient: Greater than 30
[2023-12-21] MEDS: INSULIN ASPART (NovoLOG) 100 UNIT/ML VIAL SQ SCH (01:39)
[2023-12-21 05:51] LABS: Glucose,Whole Blood 162 mg/dL (70-110)
[2023-12-21] MEDS: HEPARIN SODIUM,PORCINE 5,000 UNIT/ML 1 ML VIAL SQ SCH (08:18)
[2023-12-21 10:41] LABS: Basophils # (A) 0.01 X 10*3/uL (0.00-0.10); Basophils % (A) 0.1 %; Eosinophils # (A) 0 X 10*3/uL (0.04-0.35); Eosinophils % (A) 0 %; HCT 33.3 % (37.2-46.3); HGB 10.3 g/dL (12.0-15.0); Lymphocytes # (A) 0.45 X 10*3/uL (0.90-5.00); Lymphocytes % (A) 3.6 %; MCH 27.5 pg (27.0-32.0); MCHC 30.9 g/dL (32.0-37.0); MCV 88.8 FL (80.0-97.0); Mean Platelet Volume 10.5 FL (9.5-12.2); Monocytes # (A) 0.12 X 10*3/uL (0.20-1.00); NRBC Per 100 WBC 0 X 10*3/uL (0.00-0.01); Neutrophils # (A) 11.86 X 10*3/uL (1.80-7.70); Neutrophils % (A) 94.6 %; Platelet Count 302 X 10*3/uL (140-440); RBC 3.75 X 10*6/uL (4.10-5.20); RDW 13.2 % (11.5-14.5); WBC 12.53 X 10*3/uL (4.50-10.00)
[2023-12-21 10:50] LABS: BUN/Creat Ratio 31.75 Ratio (12.00-20.00); Blood Urea Nitrogen 25.4 mg/dL (9.0-27.0); Carbon Dioxide 28.5 mmol/L (21.6-31.8); Chloride 102 mmol/L (96-109); Glucose 158 mg/dL (70-110); Potassium 3.5 mmol/L (3.5-5.5); Sodium 142 mmol/L (135-145)
[2023-12-21 10:51] LABS: Calcium 8.8 mg/dL (8.7-10.3)
[2023-12-21 11:45] LABS: Glucose,Whole Blood 177 mg/dL (70-110)
[2023-12-21 14:51] VITALS: BMI 16.2
--- NOTE | 2023-12-21 15:17 | P.CNPUL ---
History of Present Illness Consult date: 12/21/23 Requesting physician: Mae Guo Reason for consult: COPD Chief complaint: Altered mental status, shortness of breath History of present illness: This is a 73-year-old female patient with a known history of oxygen dependent chronic obstructive pulmonary disease with chronic and ongoing tobacco dependence, previous pneumothorax secondary to trauma, hypertension, anxiety/depression. She was brought into the emergency room on 12/19/2023 with altered mental status and confusion. Her [id number] provided most of the history. She does state the patient continues to smoke and takes her oxygen off only when smoking. She had not been compliant with her medications or her nebulized treatments for the past 6 months. She was seen in the emergency room a couple days prior due to right hand swelling that secondary to right hand swelling due to a ring stuck on her finger. Consulted today December 21, 2023 for continued complaints of shortness of breath. Chest x-ray reveals no acute pulm onary process. She is currently maintaining O2 saturations in the 90s on 3 L/min per nasal cannula. She has been afebrile. Hemodynamically stable. She is currently sitting up in bed. Awake and alert in no acute distress. She is a poor historian. She is somewhat confused to time and place. She denies any worsening shortness of breath cough or congestion. She states she is admitted because of the right hand swelling. She is having some complaints of sinus congestion. No productive cough. No hemoptysis. White count 12.5. Hemoglobin 10.3. Platelets 302. Sodium 142. Potassium 3.5. Bicarb 26. BUN 25. Creatinine 0.8. Glucose 158. She is on normal saline at 75 MLS per hour. Review of Systems REVIEW OF SYSTEMS: CONSTITUTIONAL: Denies any recent significant weight loss or weight gain. EYES: Denies change in vision. EARS, NOSE, MOUTH, THROAT: Denies headaches, denies sore throat. CARDIOVASCULAR: Denies chest pain, palpitations or syncopal episodes. RESPIRATORY: Positive for shortness of breath, cough, congestion no hemoptysis. GASTROINTESTINAL: Denies change in appetite, denies abdominal pain GENITOURINARY: Denies hematuria, denies infections. MUSKULOSKELETAL: Positive for swelling of her right hand. INTEGUMENTARY: Denies rash, denies eczema. NEUROLOGICAL: Denies recent memory loss, no recent seizure activity. PSYCHIATRIC: Denies anxiety, denies depression. HEMATOLOGIC/LYMPHATIC: Denies anemia, denies enlarged lymph nodes. Past Medical History Past Medical History: COPD, Hypertension Additional Past Medical History / Comment(s): [place] History of Any Multi-Drug Resistant Organisms: None Reported Past Surgical History: Section Additional Past Surgical History / Comment(s): vain stripping left leg Past Anesthesia/Blood Transfusion Reactions: No Reported Reaction Past Psychological History: Anxiety, Depression Smoking Status: Current every day smoker Past Alcohol Use History: None Reported Additional Past Alcohol Use History / Comment(s): Pt states she has not had alcohol in 2 years. Past Drug Use History: None Reported - Past Family History Mother Family Medical History: No Reported History Additional Family Medical History / Comment(s): at 80 years old of old age. Father Family Medical History: No Reported History Additional Family Medical History / Comment(s): at 85 years old of old age. Medications and Allergies Home Medications Medication Instructions Recorded Confirmed Type No Known Home Medications 12/19/23 12/19/23 History Allergies Allergy/AdvReac Type Severity Reaction Status Date / Time No Known Allergies Allergy Verified 12/19/23 13:03 Physical Exam Vitals: Vital Signs Temp Pulse Pulse Resp BP Pulse Ox 12/21/23 13:41 97.8 F 82 19 139/61 12/21/23 11:53 80 12/21/23 11:47 76 12/21/23 09:17 80 12/21/23 09:06 83 95 12/21/23 06:51 97.7 F 80 18 160/81 12/21/23 01:30 98.3 F 73 16 105/53 97 12/21/23 00:41 75 12/21/23 00:29 80 12/20/23 20:57 84 12/20/23 20:47 76 12/20/23 17:57 97.4 F L 83 18 101/66 94 L 12/20/23 16:20 82 12/20/23 16:00 80 Intake and Output 12/21/23 12/21/23 12/21/23 06:59 14:59 22:59 Other: Voiding Method External Catheter # Voids 1 Weight 45.813 kg GENERAL EXAM: Alert, pleasant, confused, 73-year-old female, on 3 L nasal cannula, comfortable in no apparent distress. HEAD: Normocephalic. EYES: Normal reaction of pupils, equal size. NOSE: Clear with pink turbinates. THROAT: No erythema or exudates. NECK: No masses, no JVD. CHEST: No chest wall deformity. LUNGS: Equal air entry with no crackles, wheeze, rhonchi or dullness. Diminished. CVS: S1 and S2 normal with no audible murmur, regular rhythm. ABDOMEN: No hepatosplenomegaly, normal bowel sounds, no guarding or rigidity. SPINE: No scoliosis or deformity SKIN: No rashes CENTRAL NERVOUS SYSTEM: No focal deficits, tone is normal in all 4 extremities. EXTREMITIES: There is slight right hand edema. No clubbing, no cyanosis. Peripheral pulses are intact. Results - Laboratory Findings CBC and BMP: 12/21/23 06:51 12/21/23 06:51 PT/INR, D-dimer PT 11.1 sec (10.0-12.5) 12/19/23 13:18 INR 1.0 (<1.2) 12/19/23 13:18 Abnormal lab findings: Abnormal Labs 12/19/23 12/19/23 12/19/23 13:18 13:18 13:18 WBC RBC Hgb Hct MCHC 30.9 L Immature Gran # Neutrophils # Lymphocytes # 0.7 L Monocytes # Eosinophils # VBG pH 7.42 H VBG pCO2 52 H VBG HCO3 34 H Carbon Dioxide 35 H Anion Gap BUN 19 H BUN/Creatinine Ratio Glucose POC Glucose (mg/dL) Uric Acid 3.3 L Albumin 3.3 L Urine Appearance Urine Protein Urine Ketones Urine Blood Ur Leukocyte Esterase Urine RBC Urine WBC Urine Bacteria Urine Mucus 12/19/23 12/19/23 12/20/23 16:05 17:01 06:04 WBC RBC 3.92 L Hgb 10.8 L Hct 35.0 L MCHC 30.9 L Immature Gran # Neutrophils # Lymphocytes # 0.23 L Monocytes # 0.04 L Eosinophils # 0 L VBG pH VBG pCO2 VBG HCO3 Carbon Dioxide Anion Gap BUN BUN/Creatinine Ratio Glucose POC Glucose (mg/dL) 120 H Uric Acid Albumin Urine Appearance Cloudy H Urine Protein Trace H Urine Ketones 1+ H Urine Blood Small H Ur Leukocyte Esterase Large H Urine RBC 47 H Urine WBC 23 H Urine Bacteria Rare H Urine Mucus Moderate H 12/20/23 12/21/23 12/21/23 06:04 05:50 06:51 WBC 12.53 H RBC 3.75 L Hgb 10.3 L Hct 33.3 L MCHC 30.9 L Immature Gran # 0.09 H Neutrophils # 11.86 H Lymphocytes # 0.45 L Monocytes # 0.12 L Eosinophils # 0 L VBG pH VBG pCO2 VBG HCO3 Carbon Dioxide Anion Gap 13.60 H BUN BUN/Creatinine Ratio 26.25 H Glucose 254 H POC Glucose (mg/dL) 162 H Uric Acid Albumin Urine Appearance Urine Protein Urine Ketones Urine Blood Ur Leukocyte Esterase Urine RBC Urine WBC Urine Bacteria Urine Mucus 12/21/23 12/21/23 06:51 11:43 WBC RBC Hgb Hct MCHC Immature Gran # Neutrophils # Lymphocytes # Monocytes # Eosinophils # VBG pH VBG pCO2 VBG HCO3 Carbon Dioxide Anion Gap BUN BUN/Creatinine Ratio 31.75 H Glucose 158 H POC Glucose (mg/dL) 177 H Uric Acid Albumin Urine Appearance Urine Protein Urine Ketones Urine Blood Ur Leukocyte Esterase Urine RBC Urine WBC Urine Bacteria Urine Mucus - Diagnostic Findings Chest x-ray: image reviewed Assessment and Plan Assessment: Altered mental status of unclear etiology. CT scan of the brain reveals atrophy with chronic appearing periventricular white matter ischemic changes. Acute on chronic hypoxemic respiratory failure secondary to acute exacerbation of COPD Chronic and ongoing tobacco dependence History of medication noncompliance for the past 6 months according to family History of falls History of previous traumatic right-sided pneumothorax Hypertension Anxiety/depression Plan: The patient was seen and evaluated Chest x-ray, labs and medications reviewed Add Symbicort Continue DuoNeb ventilations Continue IV Solu-Medrol Educated regarding the importance of smoking cessation Educated regarding the importance of not smoking while using her oxygen Educated regarding the importance of medication and medical compliance We will continue to follow and make further recommendations based on her clinical status I have personally seen and examined the patient, performed the documentation and the assessment and plan as written. Number of minutes spent on the visit: 20.
[2023-12-21 16:57] LABS: Glucose,Whole Blood 188 mg/dL (70-110)
--- NOTE | 2023-12-21 16:59 | P.PN ---
Subjective Progress Note Date: 12/21/23 73-year-old female with a past medical history of hypertension, COPD on home oxygen at 2 L via nasal cannula anxiety/depression and currently everyday smoker was brought to the hospital due to altered mental status and increased work of breathing. Patient is awake alert and able to communicate but unable to provide reliable history. According to her [id number] that she went to patient's house and found her to be very confused and talkative with full throat not presented to the house. She also looks like struggling to breathe. Patient on home oxygen 24 hours a day and only takes off to smoke. Patient otherwise continues to smoke. Patient has not been compliant with her medication including nebulizer at home. She has not been taking medication for the past 6 months. Patient is also hav ing generalized weakness and difficulty walking due to pain in her legs. Patient was in the ER 2 days ago due to her right finger was stuck in the ring and swelling. She was started on indomethacin and also antibiotics at home for the swelling but however she did not start taking her medications. She is not eating or drinking. EMS was called and patient was brought to ER. CT head showed atrophy and chronic appearing periventricular white matter ischemic changes. Chest x-ray showed no evidence for acute pulmonary process. EKG showed sinus rhythm with frequent supraventricular premature complexes. Laboratory data showed WBC 7.6 hemoglobin 11.5 and platelets 278 ABG showed pH 7.42 pCO2 52 and bicarb is 34 Sodium 138 potassium 3.5 chloride 99 bicarb is 35 BUN 19 and creatinine 0.56 and blood sugar 86 uric acid 3.3 11 years elevated. Ammonia less than 9 and TSH within normal limits at 1.68. Urinalysis showed cloudy with trace protein 1+ ketone large leukocyte esterase with elevated RBCs and WBCs. Objective - Vital Signs Vital signs: Vital Signs Temp 97.8 F 12/21/23 13:41 Pulse 80 12/21/23 16:33 Resp 19 12/21/23 13:41 BP 139/61 12/21/23 13:41 Pulse Ox 95 12/21/23 09:06 FiO2 Intake & Output 12/20/23 12/21/23 12/21/23 18:59 06:59 18:59 Intake Total 772 Balance 772 Weight 45.813 kg Intake: Oral 772 Other: Voiding Method External Catheter External Catheter External Catheter # Voids 1 1 - Exam Patient is lying in the bed comfortably, no acute distress, awake alert but disoriented and confused HEENT: Normocephalic. Neck is supple. Pupils reactive. Nostrils clear. Oral cavity is moist. Neck reveals no JVD, carotid bruits, or thyromegaly. CHEST EXAMINATION: Trachea is central. Symmetrical expansion. Bilateral diminished sounds and expiratory wheezing. Nonlabored breathing. CARDIAC: Normal S1, S2 with no gallops. No murmurs ABDOMEN: Soft. Bowel sounds normal. No organomegaly. No abdominal bruits. Extremities: reveal no edema. No clubbing or cyanosis Neurologically awake, alert, oriented x 1-2. Able to move all extremities.. No gross focal deficits noted Skin: No rash or skin lesions. Psychiatric: Coperative. Could not be specific completely Musculoskeletal: No joint swelling or deformity. - Labs CBC & Chem 7: 12/21/23 06:51 12/21/23 06:51 Labs: Abnormal Lab Results - Last 24 Hours (Table) 12/21/23 12/21/23 12/21/23 Range/Units 05:50 06:51 06:51 WBC 12.53 H (4.50-10.00) X 10*3/uL RBC 3.75 L (4.10-5.20) X 10*6/uL Hgb 10.3 L (12.0-15.0) g/dL Hct 33.3 L (37.2-46.3) % MCHC 30.9 L (32.0-37.0) g/dL Immature Gran # 0.09 H (0.00-0.04) X 10*3/uL Neutrophils # 11.86 H (1.80-7.70) X 10*3/uL Lymphocytes # 0.45 L (0.90-5.00) X 10*3/uL Monocytes # 0.12 L (0.20-1.00) X 10*3/uL Eosinophils # 0 L (0.04-0.35) X 10*3/uL BUN/Creatinine Ratio 31.75 H (12.00-20.00) Ratio Glucose 158 H (70-110) mg/dL POC Glucose (mg/dL) 162 H (70-110) mg/dL 12/21/23 12/21/23 Range/Units 11:43 16:55 WBC (4.50-10.00) X 10*3/uL RBC (4.10-5.20) X 10*6/uL Hgb (12.0-15.0) g/dL Hct (37.2-46.3) % MCHC (32.0-37.0) g/dL Immature Gran # (0.00-0.04) X 10*3/uL Neutrophils # (1.80-7.70) X 10*3/uL Lymphocytes # (0.90-5.00) X 10*3/uL Monocytes # (0.20-1.00) X 10*3/uL Eosinophils # (0.04-0.35) X 10*3/uL BUN/Creatinine Ratio (12.00-20.00) Ratio Glucose (70-110) mg/dL POC Glucose (mg/dL) 177 H 188 H (70-110) mg/dL Microbiology - Last 24 Hours (Table) 12/19/23 17:13 Blood Culture - Preliminary Blood 12/19/23 17:13 Blood Culture - Preliminary Blood Assessment and Plan Assessment: Shortness of breath secondary to acute COPD exacerbation Chronic hypoxic respiratory failure on 2 L oxygen via nasal cannula Altered mental status possible CO2 narcosis and metabolic encephalopathy Acute urinary tract infection Ongoing nicotine addiction Hypertension Noncompliance with medications and follow-up Mild to moderate protein calorie malnutrition DVT prophylaxis heparin subcu Plan: Patient will be continued on oxygen supplementation. Continue with DuoNebs and IV Solu-Medrol 40 mg every 8. Continue with ceftriaxone 1 g daily and follow-up urine culture report. Gentle IV hydration monitor respiratory status. Follow-up closely. Prognosis guarded. PT OT will be consulted.
[2023-12-21] MEDS: SYMBICORT 160-4.5 MCG INHALER INHALATION SCH (20:32)
[2023-12-21 20:47] LABS: Glucose,Whole Blood 212 mg/dL (70-110)
[2023-12-22 05:54] LABS: Glucose,Whole Blood 130 mg/dL (70-110)
--- NOTE | 2023-12-22 11:43 | P.PN ---
Subjective Progress Note Date: 12/22/23 This is a 73-year-old female patient with a known history of oxygen dependent chronic obstructive pulmonary disease with chronic and ongoing tobacco dependence, previous pneumothorax secondary to trauma, hypertension, anxiety/depression. She was brought into the emergency room on 12/19/2023 with altered mental status and confusion. Her [id number] provided most of the history. She does state the patient continues to smoke and takes her oxygen off only when smoking. She had not been compliant with her medications or her nebulized treatments for the past 6 months. She was seen in the emergency room a couple days prior due to right hand swelling that secondary to right hand swelling due to a ring stuck on her finger. Consulted today December 21, 2023 for continued complaints of shortness of breath. Chest x-ray reveals no acute pulmonary process. She is currently maintaining O2 saturations in the 90s on 3 L/min per nasal cannula. She has been afebrile. Hemodynamically stable. She is currently sitting up in bed. Awake and alert in no acute distress. She is a poor historian. She is somewhat confused to time and place. She denies any worsening shortness of breath cough or congestion. She states she is admitted because of the right hand swelling. She is having some complaints of sinus congestion. No productive cough. No hemoptysis. White count 12.5. Hemoglobin 10.3. Platelets 302. Sodium 142. Potassium 3.5. Bicarb 26. BUN 25. Creatinine 0.8. Glucose 158. She is on normal saline at 75 MLS per hour. The patient is seen today December 22, 2023 in follow-up on the regular medical floor. She is currently sitting up in bed. Awake and alert in no acute distress. She is maintaining O2 saturations in the 90s on 3 L/min per nasal cannula. She has normal saline at 75 MLS per hour. Blood cultures revealed no growth. Blood sugar 130. He is continued on DuoNeb ventilations, Symbicort, Solu-Medrol. Antibiotics in the form of ceftriaxone. Objective - Vital Signs Vital signs: Vital Signs Temp 97.7 F 12/22/23 07:28 Pulse 70 12/22/23 08:44 Resp 18 12/22/23 07:28 BP 177/84 12/22/23 07:28 Pulse Ox 100 12/22/23 07:28 FiO2 Intake & Output 12/21/23 12/22/23 12/22/23 18:59 06:59 18:59 Output Total 200 200 Balance -200 -200 Weight 45.813 kg Output: Urine 200 200 Other: Voiding Method External Catheter - Exam GENERAL EXAM: Alert, 73-year-old female, on 3 L nasal cannula, comfortable in no apparent distress. HEAD: Normocephalic. EYES: Normal reaction of pupils, equal size. NOSE: Clear with pink turbinates. THROAT: No erythema or exudates. NECK: No masses, no JVD. CHEST: No chest wall deformity. LUNGS: Equal air entry with no crackles, wheeze, rhonchi or dullness. Diminished. CVS: S1 and S2 normal with no audible murmur, regular rhythm. ABDOMEN: No hepatosplenomegaly, normal bowel sounds, no guarding or rigidity. SPINE: No scoliosis or deformity SKIN: No rashes CENTRAL NERVOUS SYSTEM: No focal deficits, tone is normal in all 4 extremities. EXTREMITIES: There is slight right hand edema. No clubbing, no cyanosis. Peripheral pulses are intact. - Labs CBC & Chem 7: 12/21/23 06:51 12/21/23 06:51 Labs: Abnormal Lab Results - Last 24 Hours (Table) 12/21/23 12/21/23 12/21/23 Range/Units 11:43 16:55 20:43 POC Glucose (mg/dL) 177 H 188 H 212 H (70-110) mg/dL 12/22/23 Range/Units 05:53 POC Glucose (mg/dL) 130 H (70-110) mg/dL Microbiology - Last 24 Hours (Table) 12/19/23 17:13 Blood Culture - Preliminary Blood 12/19/23 17:13 Blood Culture - Preliminary Blood Assessment and Plan Assessment: Altered mental status of unclear etiology. CT scan of the brain reveals atrophy with chronic appearing periventricular white matter ischemic changes Acute on chronic hypoxemic respiratory failure secondary to acute exacerbation of COPD Chronic and ongoing tobacco dependence History of medication noncompliance for the past 6 months according to family History of falls History of previous traumatic right-sided pneumothorax Hypertension Anxiety/depression Plan: The patient was seen and evaluated Labs and medications reviewed Stable and on 3 L nasal cannula Cleared for discharge from the pulmonary standpoint Continue home oxygen Continue DuoNeb inhalations, Symbicort, prednisone taper For home with home care at discharge I have personally seen and examined the patient, performed the documentation and the assessment and plan as written. Number of minutes spent on the visit: 10.
[2023-12-22 11:45] LABS: Glucose,Whole Blood 188 mg/dL (70-110)
[2023-12-22 17:18] LABS: Glucose,Whole Blood 224 mg/dL (70-110)
[2023-12-22] MEDS: hydrALAZINE HCL 20 MG/ML 1 ML VIAL IVP PRN (19:53)
[2023-12-22 20:26] LABS: Glucose,Whole Blood 126 mg/dL (70-110)
--- NOTE | 2023-12-22 22:26 | P.PN ---
Subjective 73-year-old female with a past medical history of hypertension, COPD on home oxygen at 2 L via nasal cannula anxiety/depression and currently everyday smoker was brought to the hospital due to altered mental status and increased work of breathing. Patient is awake alert and able to communicate but unable to provide reliable history. According to her [id number] that she went to patient's house and found her to be very confused and talkative with full throat not presented to the house. She also looks like struggling to breathe. Patient on home oxygen 24 hours a day and only takes off to smoke. Patient otherwise continues to smoke. Patient has not been compliant with her medication including nebulizer at home. She has not been taking medication for the past 6 months. Patient is also having generalized weakness and difficulty walking due to pain in her legs. Patient was in the ER 2 days ago due to her right finger was stuck in the ring and swelling. She was started on indomethacin and also antibiotics at home for the swelling but however she did not start taking her medications. She is not eating or drinking. EMS was called and patient was brought to ER. CT head showed atrophy and chronic appearing periventricular white matter ischemic changes. Chest x-ray showed no evidence for acute pulmonary process. EKG showed sinus rhythm with frequent supraventricular premature complexes. Laboratory data showed WBC 7.6 hemoglobin 11.5 and platelets 278 ABG showed pH 7.42 pCO2 52 and bicarb is 34 Sodium 138 potassium 3.5 chloride 99 bicarb is 35 BUN 19 and creatinine 0.56 and blood sugar 86 uric acid 3.3 11 years elevated. Ammonia less than 9 and TSH within normal limits at 1.68. Urinalysis showed cloudy with trace protein 1+ ketone large leukocyte esterase with elevated RBCs and WBCs. 12/22/2023 patient is seen and evaluated in follow-up on the regular medical floor. She is currently sitting up in bed. Awake and alert in no acute distress. She is maintaining O2 saturations in the 90s on 3 L/min per nasal cannula. She has normal saline at 75 MLS per hour. Blood cultures revealed no growth. Blood sugar 130. He is continued on DuoNeb ventilations, Symbicort, Solu-Medrol. Antibiotics in the form of ceftriaxone Objective - Vital Signs Vital signs: Vital Signs Temp 97.7 F 12/22/23 07:28 Pulse 70 12/22/23 08:44 Resp 18 12/22/23 07:28 BP 177/84 12/22/23 07:28 Pulse Ox 100 12/22/23 07:28 FiO2 Intake & Output 12/21/23 12/22/23 12/22/23 18:59 06:59 18:59 Output Total 200 200 Balance -200 -200 Weight 45.813 kg Output: Urine 200 200 Other: Voiding Method External Catheter - Exam Patient is lying in the bed comfortably, no acute distress, awake alert but disoriented and confused HEENT: Normocephalic. Neck is supple. Pupils reactive. Nostrils clear. Oral cavity is moist. Neck reveals no JVD, carotid bruits, or thyromegaly. CHEST EXAMINATION: Trachea is central. Symmetrical expansion. Bilateral dimini shed sounds and expiratory wheezing. Nonlabored breathing. CARDIAC: Normal S1, S2 with no gallops. No murmurs ABDOMEN: Soft. Bowel sounds normal. No organomegaly. No abdominal bruits. Extremities: reveal no edema. No clubbing or cyanosis Neurologically awake, alert, oriented x 1-2. Able to move all extremities.. No gross focal deficits noted Skin: No rash or skin lesions. Psychiatric: Coperative. Could not be specific completely Musculoskeletal: No joint swelling or deformity. - Labs CBC & Chem 7: 12/21/23 06:51 12/21/23 06:51 Labs: Abnormal Lab Results - Last 24 Hours (Table) 12/21/23 12/21/23 12/21/23 Range/Units 06:51 06:51 11:43 WBC 12.53 H (4.50-10.00) X 10*3/uL RBC 3.75 L (4.10-5.20) X 10*6/uL Hgb 10.3 L (12.0-15.0) g/dL Hct 33.3 L (37.2-46.3) % MCHC 30.9 L (32.0-37.0) g/dL Immature Gran # 0.09 H (0.00-0.04) X 10*3/uL Neutrophils # 11.86 H (1.80-7.70) X 10*3/uL Lymphocytes # 0.45 L (0.90-5.00) X 10*3/uL Monocytes # 0.12 L (0.20-1.00) X 10*3/uL Eosinophils # 0 L (0.04-0.35) X 10*3/uL BUN/Creatinine Ratio 31.75 H (12.00-20.00) Ratio Glucose 158 H (70-110) mg/dL POC Glucose (mg/dL) 177 H (70-110) mg/dL 12/21/23 12/21/23 12/22/23 Range/Units 16:55 20:43 05:53 WBC (4.50-10.00) X 10*3/uL RBC (4.10-5.20) X 10*6/uL Hgb (12.0-15.0) g/dL Hct (37.2-46.3) % MCHC (32.0-37.0) g/dL Immature Gran # (0.00-0.04) X 10*3/uL Neutrophils # (1.80-7.70) X 10*3/uL Lymphocytes # (0.90-5.00) X 10*3/uL Monocytes # (0.20-1.00) X 10*3/uL Eosinophils # (0.04-0.35) X 10*3/uL BUN/Creatinine Ratio (12.00-20.00) Ratio Glucose (70-110) mg/dL POC Glucose (mg/dL) 188 H 212 H 130 H (70-110) mg/dL Microbiology - Last 24 Hours (Table) 12/19/23 17:13 Blood Culture - Preliminary Blood 12/19/23 17:13 Blood Culture - Preliminary Blood Assessment and Plan Assessment: Shortness of breath secondary to acute COPD exacerbation Chronic hypoxic respiratory failure on 2 L oxygen via nasal cannula Altered mental status possible CO2 narcosis and metabolic encephalopathy Acute urinary tract infection Ongoing nicotine addiction Hypertension Noncompliance with medications and follow-up Mild to moderate protein calorie malnutrition DVT prophylaxis heparin subcu Plan: Patient will be continued on oxygen supplementation. Continue with DuoNebs and IV Solu-Medrol 40 mg every 8. Continue with ceftriaxone 1 g daily and follow-up urine culture report. Gentle IV hydration monitor respiratory status. Follow-up closely. Prognosis guarded. PT OT will be consulted.
[2023-12-23 05:45] LABS: Glucose,Whole Blood 121 mg/dL (70-110)
--- NOTE | 2023-12-23 11:16 | P.PN ---
Subjective Progress Note Date: 12/23/23 This is a 73-year-old female patient with a known history of oxygen dependent chronic obstructive pulmonary disease with chronic and ongoing tobacco dependence, previous pneumothorax secondary to trauma, hypertension, anxiety/depression. She was brought into the emergency room on 12/19/2023 with altered mental status and confusion. Her [id number] provided most of the history. She does state the patient continues to smoke and takes her oxygen off only when smoking. She had not been compliant with her medications or her nebulized treatments for the past 6 months. She was seen in the emergency room a couple days prior due to right hand swelling that secondary to right hand swelling due to a ring stuck on her finger. Consulted today December 21, 2023 for continued complaints of shortness of breath. Chest x-ray reveals no acute pulmonary process. She is currently maintaining O2 saturations in the 90s on 3 L/min per nasal cannula. She has been afebrile. Hemodynamically stable. She is currently sitting up in bed. Awake and alert in no acute distress. She is a poor historian. She is somewhat confused to time and place. She denies any worsening shortness of breath cough or congestion. She states she is admitted because of the right hand swelling. She is having some complaints of sinus congestion. No productive cough. No hemoptysis. White count 12.5. Hemoglobin 10.3. Platelets 302. Sodium 142. Potassium 3.5. Bicarb 26. BUN 25. Creatinine 0.8. Glucose 158. She is on normal saline at 75 MLS per hour. The patient is seen today December 22, 2023 in follow-up on the regular medical floor. She is currently sitting up in bed. Awake and alert in no acute distress. She is maintaining O2 saturations in the 90s on 3 L/min per nasal cannula. She has normal saline at 75 MLS per hour. Blood cultures revealed no growth. Blood sugar 130. He is continued on DuoNeb ventilations, Symbicort, Solu-Medrol. Antibiotics in the form of ceftriaxone. The patient is seen today December 23, 2023 in follow-up on the regular medical floor. She is currently sitting up in bed. Awake and alert in no acute distress. Denies any worsening shortness of breath, cough or congestion. She is maintaining O2 saturations in the 90s on 3 L/min per nasal cannula. She is afebrile. Hemodynamically stable. Blood cultures revealed no growth. Glucose 121. She remains on DuoNeb ventilations, Symbicort, Solu-Medrol. Heparin for DVT prophylaxis. Antibiotics in the form of ceftriaxone. Objective - Vital Signs Vital signs: Vital Signs Temp 98.2 F 12/23/23 07:29 Pulse 64 12/23/23 09:25 Resp 18 12/23/23 07:29 BP 169/91 12/23/23 07:29 Pulse Ox 97 12/23/23 07:29 FiO2 Intake & Output 12/22/23 12/23/23 12/23/23 18:59 06:59 18:59 Output Total 1825 Balance -1825 Output: Urine 1825 Other: Voiding Method External Catheter External Catheter # Voids 200 # Bowel Movements 1 - Exam GENERAL EXAM: Alert, pleasant 73-year-old female, sitting up in bed, on 3 L nasal cannula, in no apparent distress. HEAD: Normocephalic. EYES: Normal reaction of pupils, equal size. NOSE: Clear with pink turbinates. THROAT: No erythema or exudates. NECK: No masses, no JVD. CHEST: No chest wall deformity. LUNGS: Equal air entry with no crackles, wheeze, rhonchi or dullness. Diminished. CVS: S1 and S2 normal with no audible murmur, regular rhythm. ABDOMEN: No hepatosplenomegaly, normal bowel sounds, no guarding or rigidity. SPINE: No scoliosis or deformity SKIN: No rashes CENTRAL NERVOUS SYSTEM: No focal deficits, tone is normal in all 4 extremities. EXTREMITIES: There is slight right hand edema. No clubbing, no cyanosis. Peripheral pulses are intact. - Labs CBC & Chem 7: 12/21/23 06:51 12/21/23 06:51 Labs: Abnormal Lab Results - Last 24 Hours (Table) 12/22/23 12/22/23 12/22/23 Range/Units 11:43 17:16 20:19 POC Glucose (mg/dL) 188 H 224 H 126 H (70-110) mg/dL 12/23/23 Range/Units 05:43 POC Glucose (mg/dL) 121 H (70-110) mg/dL Microbiology - Last 24 Hours (Table) 12/19/23 17:13 Blood Culture - Preliminary Blood 12/19/23 17:13 Blood Culture - Preliminary Blood Assessment and Plan Assessment: Altered mental status of unclear etiology. CT scan of the brain reveals atrophy with chronic appearing periventricular white matter ischemic changes Acute on chronic hypoxemic respiratory failure secondary to acute exacerbation of COPD Chronic and ongoing tobacco dependence History of medication noncompliance for the past 6 months according to family History of falls History of previous traumatic right-sided pneumothorax Hypertension Anxiety/depression Plan: The patient was seen and evaluated Medications reviewed Cleared for discharge from the pulmonary standpoint Continue home oxygen Continue DuoNeb inhalations, Symbicort, prednisone taper Plan is for for home with home care I have personally seen and examined the patient, performed the documentation and the assessment and plan as written. Number of minutes spent on the visit: 10.
[2023-12-23 11:32] LABS: Glucose,Whole Blood 119 mg/dL (70-110)
[2023-12-23 13:13] LABS: Basophils % (A) 0 %; Eosinophils % (A) 0 %; HCT 40.4 % (34.0-46.0); HGB 12.3 gm/dL (11.4-16.0); Lymphocytes # (A) 0.6 k/uL (1.0-4.8); Lymphocytes % (A) 6 %; MCH 27.6 pg (25.0-35.0); MCHC 30.5 g/dL (31.0-37.0); MCV 90.4 fL (80.0-100.0); Mean Platelet Volume 7.4; Monocytes # (A) 0.3 k/uL (0-1.0); Monocytes % (A) 3 %; Neutrophils # (A) 8.9 k/uL (1.3-7.7); Neutrophils % (A) 91 %; Platelet Count 363 k/uL (150-450); RBC 4.47 m/uL (3.80-5.40); RDW 13.4 % (11.5-15.5); WBC 9.8 k/uL (3.8-10.6)
[2023-12-23 13:29] LABS: African American GFR (CKD) >90 (>60 ml/min/1.73 sqM); Anion Gap 7 mmol/L; Blood Urea Nitrogen 19 mg/dL (7-17); Calcium 8.8 mg/dL (8.4-10.2); Carbon Dioxide 30 mmol/L (22-30); Chloride 96 mmol/L (98-107); Glucose 126 mg/dL (74-99); Non-African American GFR(CKD) 90 (>60 ml/min/1.73 sqM); Potassium 3.7 mmol/L (3.5-5.1); Sodium 133 mmol/L (137-145)
[2023-12-23 16:41] LABS: Glucose,Whole Blood 144 mg/dL (70-110)
[2023-12-23 20:27] LABS: Glucose,Whole Blood 123 mg/dL (70-110)
[2023-12-24 05:47] LABS: Glucose,Whole Blood 84 mg/dL (70-110)
[2023-12-24] MEDS: predniSONE 10 MG TAB PO SCH (07:35)
[2023-12-24 08:25] LABS: Basophils # (A) 0.02 X 10*3/uL (0.00-0.10); Basophils % (A) 0.3 %; Eosinophils # (A) 0.02 X 10*3/uL (0.04-0.35); Eosinophils % (A) 0.3 %; HCT 33.9 % (37.2-46.3); HGB 10.2 g/dL (12.0-15.0); Lymphocytes # (A) 1.73 X 10*3/uL (0.90-5.00); Lymphocytes % (A) 22.2 %; MCH 27.6 pg (27.0-32.0); MCHC 30.1 g/dL (32.0-37.0); MCV 91.9 FL (80.0-97.0); Mean Platelet Volume 10.6 FL (9.5-12.2); Monocytes # (A) 0.62 X 10*3/uL (0.20-1.00); Monocytes % (A) 7.9 %; NRBC Per 100 WBC 0 X 10*3/uL (0.00-0.01); Neutrophils # (A) 5.24 X 10*3/uL (1.80-7.70); Neutrophils % (A) 67.1 %; Platelet Count 320 X 10*3/uL (140-440); RBC 3.69 X 10*6/uL (4.10-5.20); RDW 13.7 % (11.5-14.5)
[2023-12-24 08:52] LABS: BUN/Creat Ratio 35.86 Ratio (12.00-20.00); Blood Urea Nitrogen 25.1 mg/dL (9.0-27.0); Calcium 8.5 mg/dL (8.7-10.3); Carbon Dioxide 29.5 mmol/L (21.6-31.8); Chloride 101 mmol/L (96-109); Glucose 94 mg/dL (70-110); Potassium 3.9 mmol/L (3.5-5.5); Sodium 140 mmol/L (135-145)
[2023-12-24 11:43] LABS: Glucose,Whole Blood 147 mg/dL (70-110)
--- NOTE | 2023-12-24 13:44 | P.PN ---
Subjective Progress Note Date: 12/23/23 73-year-old female with a past medical history of hypertension, COPD on home oxygen at 2 L via nasal cannula anxiety/depression and currently everyday smoker was brought to the hospital due to altered mental status and increased work of breathing. Patient is awake alert and able to communicate but unable to provide reliable history. According to her [id number] that she went to patient's house and found her to be very confused and talkative with full throat not presented to the house. She also looks like struggling to breathe. Patient on home oxygen 24 hours a day and only takes off to smoke. Patient otherwise continues to smoke. Patient has not been compliant with her medication including nebulizer at home. She has not been taking medication for the past 6 months. Patient is also hav ing generalized weakness and difficulty walking due to pain in her legs. Patient was in the ER 2 days ago due to her right finger was stuck in the ring and swelling. She was started on indomethacin and also antibiotics at home for the swelling but however she did not start taking her medications. She is not eating or drinking. EMS was called and patient was brought to ER. CT head showed atrophy and chronic appearing periventricular white matter ischemic changes. Chest x-ray showed no evidence for acute pulmonary process. EKG showed sinus rhythm with frequent supraventricular premature complexes. Laboratory data showed WBC 7.6 hemoglobin 11.5 and platelets 278 ABG showed pH 7.42 pCO2 52 and bicarb is 34 Sodium 138 potassium 3.5 chloride 99 bicarb is 35 BUN 19 and creatinine 0.56 and blood sugar 86 uric acid 3.3 11 years elevated. Ammonia less than 9 and TSH within normal limits at 1.68. Urinalysis showed cloudy with trace protein 1+ ketone large leukocyte esterase with elevated RBCs and WBCs. 12/22/2023 patient is seen and evaluated in follow-up on the regular medical floor. She is currently sitting up in bed. Awake and alert in no acute distress. She is maintaining O2 saturations in the 90s on 3 L/min per nasal cannula. She has normal saline at 75 MLS per hour. Blood cultures revealed no growth. Blood sugar 130. He is continued on DuoNeb ventilations, Symbicort, Solu-Medrol. Antibiotics in the form of ceftriaxone 12/23/2023 Patient is seen sitting up in bed, reports she has been evaluated by pulmonary service and aware of discharge planning Patient has been evaluated by pulmonary service and cleared for discharge from pulmonary standpoint with home oxygen -- Patient is recommended DuoNeb nebulizer treatments, Symbicort and prednisone taper -- Patient has been evaluated by PT/OT and is recommended discharge home with home health care if patient has home support and 24-hour supervision versus skilled rehab if arranged patient lives by herself -- Patient does report that she lives alone and cares for self; case management/PATIENT ACCOUNTS SPECIALIST to evaluate for discharge to skilled rehab Objective - Vital Signs Vital signs: Vital Signs Temp 98.2 F 12/23/23 07:29 Pulse 64 12/23/23 09:25 Resp 18 12/23/23 07:29 BP 169/91 12/23/23 07:29 Pulse Ox 97 12/23/23 07:29 FiO2 Intake & Output 12/22/23 12/23/23 12/23/23 18:59 06:59 18:59 Output Total 1825 Balance -1825 Output: Urine 1825 Other: Voiding Method External Catheter External Catheter # Voids 200 # Bowel Movements 1 - Exam Patient is lying in the bed comfortably, no acute distress, awake alert but disoriented and confused HEENT: Normocephalic. Neck is supple. Pupils reactive. Nostrils clear. Oral cavity is moist. Neck reveals no JVD, carotid bruits, or thyromegaly. CHEST EXAMINATION: Trachea is central. Symmetrical expansion. Bilateral diminished sounds and expiratory wheezing. Nonlabored breathing. CARDIAC: Normal S1, S2 with no gallops. No murmurs ABDOMEN: Soft. Bowel sounds normal. No organomegaly. No abdominal bruits. Extremities: reveal no edema. No clubbing or cyanosis Neurologically awake, alert, oriented x 1-2. Able to move all extremities.. No gross focal deficits noted Skin: No rash or skin lesions. Psychiatric: Coperative. Could not be specific completely Musculoskeletal: No joint swelling or deformity. - Labs CBC & Chem 7: 12/24/23 03:18 12/24/23 03:18 Labs: Abnormal Lab Results - Last 24 Hours (Table) 12/22/23 12/22/23 12/22/23 Range/Units 11:43 17:16 20:19 POC Glucose (mg/dL) 188 H 224 H 126 H (70-110) mg/dL 12/23/23 12/23/23 Range/Units 05:43 11:30 POC Glucose (mg/dL) 121 H 119 H (70-110) mg/dL Microbiology - Last 24 Hours (Table) 12/19/23 17:13 Blood Culture - Preliminary Blood 12/19/23 17:13 Blood Culture - Preliminary Blood Assessment and Plan Assessment: Shortness of breath secondary to acute COPD exacerbation Chronic hypoxic respiratory failure on 2 L oxygen via nasal cannula Altered mental status possible CO2 narcosis and metabolic encephalopathy Acute urinary tract infection Ongoing nicotine addiction Hypertension Noncompliance with medications and follow-up Mild to moderate protein calorie malnutrition DVT prophylaxis heparin subcu Plan: Patient will be continued on oxygen supplementation. Continue with DuoNebs and IV Solu-Medrol 40 mg every 8. Continue with ceftriaxone 1 g daily and follow-up urine culture report. Gentle IV hydration monitor respiratory status. Follow-up closely. Prognosis guarded. PT OT will be consulted.
--- NOTE | 2023-12-24 14:33 | P.PN ---
Subjective Progress Note Date: 12/24/23 This is a 73-year-old female patient with a known history of oxygen dependent chronic obstructive pulmonary disease with chronic and ongoing tobacco dependence, previous pneumothorax secondary to trauma, hypertension, anxiety/depression. She was brought into the emergency room on 12/19/2023 with altered mental status and confusion. Her [id number] provided most of the history. She does state the patient continues to smoke and takes her oxygen off only when smoking. She had not been compliant with her medications or her nebulized treatments for the past 6 months. She was seen in the emergency room a couple days prior due to right hand swelling that secondary to right hand swelling due to a ring stuck on her finger. Consulted today December 21, 2023 for continued complaints of shortness of breath. Chest x-ray reveals no acute pulmonary process. She is currently maintaining O2 saturations in the 90s on 3 L/min per nasal cannula. She has been afebrile. Hemodynamically stable. She is currently sitting up in bed. Awake and alert in no acute distress. She is a poor historian. She is somewhat confused to time and place. She denies any worsening shortness of breath cough or congestion. She states she is admitted because of the right hand swelling. She is having some complaints of sinus congestion. No productive cough. No hemoptysis. White count 12.5. Hemoglobin 10.3. Platelets 302. Sodium 142. Potassium 3.5. Bicarb 26. BUN 25. Creatinine 0.8. Glucose 158. She is on normal saline at 75 MLS per hour. The patient is seen today December 22, 2023 in follow-up on the regular medical floor. She is currently sitting up in bed. Awake and alert in no acute distress. She is maintaining O2 saturations in the 90s on 3 L/min per nasal cannula. She has normal saline at 75 MLS per hour. Blood cultures revealed no growth. Blood sugar 130. He is continued on DuoNeb ventilations, Symbicort, Solu-Medrol. Antibiotics in the form of ceftriaxone. The patient is seen today December 23, 2023 in follow-up on the regular medical floor. She is currently sitting up in bed. Awake and alert in no acute distress. Denies any worsening shortness of breath, cough or congestion. She is maintaining O2 saturations in the 90s on 3 L/min per nasal cannula. She is afebrile. Hemodynamically stable. Blood cultures revealed no growth. Glucose 121. She remains on DuoNeb ventilations, Symbicort, Solu-Medrol. Heparin for DVT prophylaxis. Antibiotics in the form of ceftriaxone. The patient is seen today December 24, 2023 in follow-up on the regular medical floor. She is resting in bed. Awake and alert in no acute distress. She is maintaining O2 saturations in the 90s on 2 L/min per nasal cannula. She is afebrile. Hemodynamically stable. She remains on DuoNeb inhalations, Symbicort, Solu-Medrol. Antibiotics in the form of ceftriaxone. Heparin for DVT prophylaxis. Blood cultures revealed no growth. White count 10.8. Hemoglobin 10.2. Platelets 320. Sodium 140. Potassium 3.9. Bicarb 30. BUN 25. Creatinine 0.7. Glucose 94. Objective - Vital Signs Vital signs: Vital Signs Temp 98.1 F 12/24/23 07:51 Pulse 84 12/24/23 13:13 Resp 18 12/24/23 07:51 BP 162/91 12/24/23 07:51 Pulse Ox 96 12/24/23 09:28 FiO2 Intake & Output 12/23/23 12/24/23 12/24/23 18:59 06:59 18:59 Intake Total 350 Output Total 700 400 Balance -700 -50 Intake: Oral 350 Output: Urine 700 400 Other: Voiding Method External Catheter External Catheter Diaper # Voids 2 # Bowel Movements 1 - Exam GENERAL EXAM: Alert, 73-year-old female, resting in bed, on 3 L nasal cannula, in no distress. HEAD: Normocephalic. EYES: Normal reaction of pupils, equal size. NOSE: Clear with pink turbinates. THROAT: No erythema or exudates. NECK: No masses, no JVD. CHEST: No chest wall deformity. LUNGS: Equal air entry with no crackles, wheeze, rhonchi or dullness. Diminished. CVS: S1 and S2 normal with no audible murmur, regular rhythm. ABDOMEN: No hepatosplenomegaly, normal bowel sounds, no guarding or rigidity. SPINE: No scoliosis or deformity SKIN: No rashes CENTRAL NERVOUS SYSTEM: No focal deficits, tone is normal in all 4 extremities. EXTREMITIES: There is slight right hand edema. No clubbing, no cyanosis. Peripheral pulses are intact. - Labs CBC & Chem 7: 12/24/23 03:18 12/24/23 03:18 Labs: Abnormal Lab Results - Last 24 Hours (Table) 12/23/23 12/23/23 12/24/23 Range/Units 16:40 20:23 03:18 RBC 3.69 L (4.10-5.20) X 10*6/uL Hgb 10.2 L (12.0-15.0) g/dL Hct 33.9 L (37.2-46.3) % MCHC 30.1 L (32.0-37.0) g/dL Immature Gran # 0.17 H (0.00-0.04) X 10*3/uL Eosinophils # 0.02 L (0.04-0.35) X 10*3/uL BUN/Creatinine Ratio (12.00-20.00) Ratio POC Glucose (mg/dL) 144 H 123 H (70-110) mg/dL Calcium (8.7-10.3) mg/dL 12/24/23 12/24/23 Range/Units 03:18 11:41 RBC (4.10-5.20) X 10*6/uL Hgb (12.0-15.0) g/dL Hct (37.2-46.3) % MCHC (32.0-37.0) g/dL Immature Gran # (0.00-0.04) X 10*3/uL Eosinophils # (0.04-0.35) X 10*3/uL BUN/Creatinine Ratio 35.86 H (12.00-20.00) Ratio POC Glucose (mg/dL) 147 H (70-110) mg/dL Calcium 8.5 L (8.7-10.3) mg/dL Assessment and Plan Assessment: Altered mental status of unclear etiology. CT scan of the brain reveals atrophy with chronic appearing periventricular white matter ischemic changes Acute on chronic hypoxemic respiratory failure secondary to acute exacerbation of COPD Chronic and ongoing tobacco dependence History of medication noncompliance for the past 6 months according to family History of falls History of previous traumatic right-sided pneumothorax Hypertension Anxiety/depression Poor overall functional performance based on the above-mentioned multiple comorbidities Plan: The patient was seen and evaluated Medications and labs reviewed Continue DuoNeb inhalations, Symbicort, prednisone taper Continue on her home oxygen Educated regarding the importance of medication compliance Educated regarding the importance of medical follow-up compliance Plan is for for home with home care at discharge This patient was seen independently by the pulmonary nurse practitioner addressing pulmonary issues I have personally seen and examined the patient, performed the documentation and the assessment and plan as written. Number of minutes spent on the visit: 25.
--- NOTE | 2023-12-24 16:07 | P.PN ---
Subjective Progress Note Date: 12/24/23 73-year-old female with a past medical history of hypertension, COPD on home oxygen at 2 L via nasal cannula anxiety/depression and currently everyday smoker was brought to the hospital due to altered mental status and increased work of breathing. Patient is awake alert and able to communicate but unable to provide reliable history. According to her [id number] that she went to patient's house and found her to be very confused and talkative with full throat not presented to the house. She also looks like struggling to breathe. Patient on home oxygen 24 hours a day and only takes off to smoke. Patient otherwise continues to smoke. Patient has not been compliant with her medication including nebulizer at home. She has not been taking medication for the past 6 months. Patient is also h aving generalized weakness and difficulty walking due to pain in her legs. Patient was in the ER 2 days ago due to her right finger was stuck in the ring and swelling. She was started on indomethacin and also antibiotics at home for the swelling but however she did not start taking her medications. She is not eating or drinking. EMS was called and patient was brought to ER. CT head showed atrophy and chronic appearing periventricular white matter ischemic changes. Chest x-ray showed no evidence for acute pulmonary process. EKG showed sinus rhythm with frequent supraventricular premature complexes. Laboratory data showed WBC 7.6 hemoglobin 11.5 and platelets 278 ABG showed pH 7.42 pCO2 52 and bicarb is 34 Sodium 138 potassium 3.5 chloride 99 bicarb is 35 BUN 19 and creatinine 0.56 and blood sugar 86 uric acid 3.3 11 years elevated. Ammonia less than 9 and TSH within normal limits at 1.68. Urinalysis showed cloudy with trace protein 1+ ketone large leukocyte esterase with elevated RBCs and WBCs. 12/22/2023 patient is seen and evaluated in follow-up on the regular medical floor. She is currently sitting up in bed. Awake and alert in no acute distress. She is maintaining O2 saturations in the 90s on 3 L/min per nasal cannula. She has normal saline at 75 MLS per hour. Blood cultures revealed no growth. Blood sugar 130. He is continued on DuoNeb ventilations, Symbicort, Solu-Medrol. Antibiotics in the form of ceftriaxone 12/23/2023 Patient is seen sitting up in bed, reports she has been evaluated by pulmonary service and aware of discharge planning Patient has been evaluated by pulmonary service and cleared for discharge from pulmonary standpoint with home oxygen -- Patient is recommended DuoNeb nebulizer treatments, Symbicort and prednisone taper -- Patient has been evaluated by PT/OT and is recommended discharge home with home health care if patient has home support and 24-hour supervision versus skilled rehab if arranged patient lives by herself -- Patient does report that she lives alone and cares for self; case management/EMERGENCY MANAGEMENT DIRECTOR to evaluate for discharge to skilled rehab 12/24/2023 Patient is seen in follow-up today reports her breathing is improved and is being followed by pulmonary. Patient chronically wears oxygen outpatient and has been cleared by pulmonary. Patient evaluated by rehab and would be able to return home with home care although patient lives alone and has no support and is extremely unsafe and high risk for falls and noncompliance with medical follow-up. Case management/social work consulted in regards to possible ECF. Patient is significantly weak and was independent prior to this. Patient is currently afebrile denies worsening shortness of breath although is dyspneic on exam with minimal conversation. Patient is extremely hard of hearing. Review of systems: Constitutional: No reports of fatigue, fever, or chills Cardiovascular: No reports of chest pain or palpitations Respiratory: reports of shortness of breath and pursed lipping with conversation GI: No reports of nausea, vomiting, or diarrhea : No reports of dysuria or retention Neurovascular: reports of generalized weakness All medications have been reviewed Physical exam: Gen: This is a 73-year-old female who is awake, alert and oriented x 2, baseline, extremely hard of hearing, elderly appearing, ill-appearing, cachectic with significant muscle wasting noted HEENT: Head is atraumatic, normocephalic. Pupils equal, round. Sclerae is anicteric. NECK: Supple. No JVD. No lymphadenopathy. No thyromegaly. LUNGS: Clear to auscultation. No wheezes or rhonchi. No intercostal retractions. HEART: Regular rate and rhythm. No murmur. ABDOMEN: Soft. Bowel sounds are present. No masses. No tenderness. EXTREMITIES: No pedal edema. No calf tenderness. NEUROLOGICAL: Patient is awake, alert and oriented x to. Cranial nerves 2 through 12 are grossly intact. Diffusely weak Assessment: Shortness of breath secondary to acute COPD exacerbation Chronic hypoxic respiratory failure on 2 L oxygen via nasal cannula Altered mental status possible CO2 narcosis and metabolic encephalopathy Acute urinary tract infection, present on admission Gait dysfunction with generalized weakness Ongoing nicotine addiction Hypertension Noncompliance with medications and follow-up moderate protein calorie malnutrition with a BMI of 16.3 DVT prophylaxis heparin subcu GI prophylaxis Full code Plan: Patient will be continued on oxygen supplementation. Continue with DuoNebs and IV Solu-Medrol 40 mg every 8. Continue with ceftriaxone daily and follow-up urine culture report. Gentle IV hydration and will follow-up on repeat labs Continue DuoNeb treatments and being transition to oral prednisone on discharge. Patient to continue DuoNebs on discharge and unsure if she has a nebulizer Patient with generalized weakness evaluated by physical therapy recommending subacute rehab for continued strength and mobility as patient lives alone and has no support. Case management/social work consulted for possible ECF and referrals have been placed. possible discharge planning to ECF in the next 24 to 48 hours Due to multiple complex medical issues, overall prognosis is guarded The impression and plan of care has been dictated by Heather Pastrana, Nurse Practitioner as directed. Dr. Christ MD I have performed a history and examination and MDM of this patient, discussed the same with the dictator, and agree with the dictator's assessment and plan as written ,documented as a scribe. Based on total visit time, I have performed more than 50% of the visit. Objective - Vital Signs Vital signs: Vital Signs Temp 98.1 F 12/24/23 07:51 Pulse 84 12/24/23 13:13 Resp 18 12/24/23 07:51 BP 162/91 12/24/23 07:51 Pulse Ox 96 12/24/23 09:28 FiO2 Intake & Output 12/23/23 12/24/23 12/24/23 18:59 06:59 18:59 Intake Total 350 Output Total 700 400 Balance -700 -50 Intake: Oral 350 Output: Urine 700 400 Other: Voiding Method External Catheter External Catheter Diaper # Voids 2 # Bowel Movements 1 - Labs CBC & Chem 7: 12/24/23 03:18 12/24/23 03:18 Labs: Abnormal Lab Results - Last 24 Hours (Table) 12/23/23 12/23/23 12/24/23 Range/Units 16:40 20:23 03:18 RBC 3.69 L (4.10-5.20) X 10*6/uL Hgb 10.2 L (12.0-15.0) g/dL Hct 33.9 L (37.2-46.3) % MCHC 30.1 L (32.0-37.0) g/dL Immature Gran # 0.17 H (0.00-0.04) X 10*3/uL Eosinophils # 0.02 L (0.04-0.35) X 10*3/uL BUN/Creatinine Ratio (12.00-20.00) Ratio POC Glucose (mg/dL) 144 H 123 H (70-110) mg/dL Calcium (8.7-10.3) mg/dL 12/24/23 12/24/23 Range/Units 03:18 11:41 RBC (4.10-5.20) X 10*6/uL Hgb (12.0-15.0) g/dL Hct (37.2-46.3) % MCHC (32.0-37.0) g/dL Immature Gran # (0.00-0.04) X 10*3/uL Eosinophils # (0.04-0.35) X 10*3/uL BUN/Creatinine Ratio 35.86 H (12.00-20.00) Ratio POC Glucose (mg/dL) 147 H (70-110) mg/dL Calcium 8.5 L (8.7-10.3) mg/dL
[2023-12-24 16:54] LABS: Glucose,Whole Blood 147 mg/dL (70-110)
[2023-12-24 20:39] LABS: Glucose,Whole Blood 205 mg/dL (70-110)
[2023-12-24 22:29] LABS: Glucose,Whole Blood 205 mg/dL (70-110)
[2023-12-25 06:02] LABS: Glucose,Whole Blood 65 mg/dL (70-110)
[2023-12-25 06:22] LABS: Glucose,Whole Blood 96 mg/dL (70-110)
[2023-12-25 11:38] LABS: Glucose,Whole Blood 103 mg/dL (70-110)
--- NOTE | 2023-12-25 11:56 | P.PN ---
Subjective Progress Note Date: 12/25/23 This is a 73-year-old female patient with a known history of oxygen dependent chronic obstructive pulmonary disease with chronic and ongoing tobacco dependence, previous pneumothorax secondary to trauma, hypertension, anxiety/depression. She was brought into the emergency room on 12/19/2023 with altered mental status and confusion. Her [id number] provided most of the history. She does state the patient continues to smoke and takes her oxygen off only when smoking. She had not been compliant with her medications or her nebulized treatments for the past 6 months. She was seen in the emergency room a couple days prior due to right hand swelling that secondary to right hand swelling due to a ring stuck on her finger. Consulted today December 21, 2023 for continued complaints of shortness of breath. Chest x-ray reveals no acute pulmonary process. She is currently maintaining O2 saturations in the 90s on 3 L/min per nasal cannula. She has been afebrile. Hemodynamically stable. She is currently sitting up in bed. Awake and alert in no acute distress. She is a poor historian. She is somewhat confused to time and place. She denies any worsening shortness of breath cough or congestion. She states she is admitted because of the right hand swelling. She is having some complaints of sinus congestion. No productive cough. No hemoptysis. White count 12.5. Hemoglobin 10.3. Platelets 302. Sodium 142. Potassium 3.5. Bicarb 26. BUN 25. Creatinine 0.8. Glucose 158. She is on normal saline at 75 MLS per hour. The patient is seen today December 22, 2023 in follow-up on the regular medical floor. She is currently sitting up in bed. Awake and alert in no acute distress. She is maintaining O2 saturations in the 90s on 3 L/min per nasal cannula. She has normal saline at 75 MLS per hour. Blood cultures revealed no growth. Blood sugar 130. He is continued on DuoNeb ventilations, Symbicort, Solu-Medrol. Antibiotics in the form of ceftriaxone. The patient is seen today December 23, 2023 in follow-up on the regular medical floor. She is currently sitting up in bed. Awake and alert in no acute distress. Denies any worsening shortness of breath, cough or congestion. She is maintaining O2 saturations in the 90s on 3 L/min per nasal cannula. She is afebrile. Hemodynamically stable. Blood cultures revealed no growth. Glucose 121. She remains on DuoNeb ventilations, Symbicort, Solu-Medrol. Heparin for DVT prophylaxis. Antibiotics in the form of ceftriaxone. The patient is seen today December 24, 2023 in follow-up on the regular medical floor. She is resting in bed. Awake and alert in no acute distress. She is maintaining O2 saturations in the 90s on 2 L/min per nasal cannula. She is afebrile. Hemodynamically stable. She remains on DuoNeb inhalations, Symbicort, Solu-Medrol. Antibiotics in the form of ceftriaxone. Heparin for DVT prophylaxis. Blood cultures revealed no growth. White count 10.8. Hemoglobin 10.2. Platelets 320. Sodium 140. Potassium 3.9. Bicarb 30. BUN 25. Creatinine 0.7. Glucose 94. The patient is seen today December 25, 2023 in follow-up on the regular medical floor. She is currently sitting up in a chair. Awake and alert in no acute distress. Maintaining O2 saturations in the 90s on 3 L/min per nasal cannula. She has normal staying at 25 MLS per hour. Glucose 103. Remains on DuoNeb inhalations, Symbicort, prednisone taper. Antibiotics in the form of ceftriaxone. Blood cultures revealed no growth. Objective - Vital Signs Vital signs: Vital Signs Temp 98.0 F 12/25/23 07:10 Pulse 76 12/25/23 09:18 Resp 18 12/25/23 07:10 BP 138/74 12/25/23 07:10 Pulse Ox 100 12/25/23 09:07 FiO2 Intake & Output 12/24/23 12/25/23 12/25/23 18:59 06:59 18:59 Intake Total 350 300 230 Output Total 400 Balance -50 300 230 Weight 45.813 kg Intake: Intake, IV Titration 300 Amount Sodium Chloride 0.9% 1, 300 000 ml @ 75 mls/hr IV . [id number] [facility] Rx#:[id number] Oral 350 230 Output: Urine 400 Other: Voiding Method Diaper Diaper Diaper # Voids 3 1 1 # Bowel Movements 1 2 - Exam GENERAL EXAM: Alert, 73-year-old female, resting in bed, on 3 L nasal cannula, in no distress. HEAD: Normocephalic. EYES: Normal reaction of pupils, equal size. NOSE: Clear with pink turbinates. THROAT: No erythema or exudates. NECK: No masses, no JVD. CHEST: No chest wall deformity. LUNGS: Equal air entry with no crackles, wheeze, rhonchi or dullness. Diminished. CVS: S1 and S2 normal with no audible murmur, regular rhythm. ABDOMEN: No hepatosplenomegaly, normal bowel sounds, no guarding or rigidity. SPINE: No scoliosis or deformity SKIN: No rashes CENTRAL NERVOUS SYSTEM: No focal deficits, tone is normal in all 4 extremities. EXTREMITIES: There is slight right hand edema. No clubbing, no cyanosis. Perip heral pulses are intact. - Labs CBC & Chem 7: 12/24/23 03:18 12/24/23 03:18 Labs: Abnormal Lab Results - Last 24 Hours (Table) 12/24/23 12/24/23 12/24/23 Range/Units 16:44 20:38 22:28 POC Glucose (mg/dL) 147 H 205 H 205 H (70-110) mg/dL 12/25/23 Range/Units 06:01 POC Glucose (mg/dL) 65 L (70-110) mg/dL Microbiology - Last 24 Hours (Table) 12/19/23 17:13 Blood Culture - Final Blood 12/19/23 17:13 Blood Culture - Final Blood Assessment and Plan Assessment: Altered mental status of unclear etiology. CT scan of the brain reveals atrophy with chronic appearing periventricular white matter ischemic changes Acute on chronic hypoxemic respiratory failure secondary to acute exacerbation of COPD Chronic and ongoing tobacco dependence History of medication noncompliance for the past 6 months according to family History of falls History of previous traumatic right-sided pneumothorax Hypertension Anxiety/depression Poor overall functional performance based on the above-mentioned multiple comorbidities Plan: The patient was seen and evaluated Medications and labs reviewed Continue on her home oxygen Continue Symbicort, DuoNeb inhalations Complete a prednisone taper Plan is for for home with home care at discharge I have personally seen and examined the patient, performed the documentation and the assessment and plan as written. Number of minutes spent on the visit: 10.
--- NOTE | 2023-12-25 14:43 | P.PN ---
Subjective Progress Note Date: 12/25/23 73-year-old female with a past medical history of hypertension, COPD on home oxygen at 2 L via nasal cannula anxiety/depression and currently everyday smoker was brought to the hospital due to altered mental status and increased work of breathing. Patient is awake alert and able to communicate but unable to provide reliable history. According to her ijxmeqll-wi-wod that she went to patient's house and found her to be very confused and talkative with full throat not presented to the house. She also looks like struggling to breathe. Patient on home oxygen 24 hours a day and only takes off to smoke. Patient otherwise continues to smoke. Patient has not been compliant with her medication including nebulizer at home. She has not been taking medication for the past 6 months. Patient is also h aving generalized weakness and difficulty walking due to pain in her legs. Patient was in the ER 2 days ago due to her right finger was stuck in the ring and swelling. She was started on indomethacin and also antibiotics at home for the swelling but however she did not start taking her medications. She is not eating or drinking. EMS was called and patient was brought to ER. CT head showed atrophy and chronic appearing periventricular white matter ischemic changes. Chest x-ray showed no evidence for acute pulmonary process. EKG showed sinus rhythm with frequent supraventricular premature complexes. Laboratory data showed WBC 7.6 hemoglobin 11.5 and platelets 278 ABG showed pH 7.42 pCO2 52 and bicarb is 34 Sodium 138 potassium 3.5 chloride 99 bicarb is 35 BUN 19 and creatinine 0.56 and blood sugar 86 uric acid 3.3 11 years elevated. Ammonia less than 9 and TSH within normal limits at 1.68. Urinalysis showed cloudy with trace protein 1+ ketone large leukocyte esterase with elevated RBCs and WBCs. 12/22/2023 patient is seen and evaluated in follow-up on the regular medical floor. She is currently sitting up in bed. Awake and alert in no acute distress. She is maintaining O2 saturations in the 90s on 3 L/min per nasal cannula. She has normal saline at 75 MLS per hour. Blood cultures revealed no growth. Blood sugar 130. He is continued on DuoNeb ventilations, Symbicort, Solu-Medrol. Antibiotics in the form of ceftriaxone 12/23/2023 Patient is seen sitting up in bed, reports she has been evaluated by pulmonary service and aware of discharge planning Patient has been evaluated by pulmonary service and cleared for discharge from pulmonary standpoint with home oxygen -- Patient is recommended DuoNeb nebulizer treatments, Symbicort and prednisone taper -- Patient has been evaluated by PT/OT and is recommended discharge home with home health care if patient has home support and 24-hour supervision versus skilled rehab if arranged patient lives by herself -- Patient does report that she lives alone and cares for self; case management/COMPLIANCE ADMINISTRATOR to evaluate for discharge to skilled rehab 12/24/2023 Patient is seen in follow-up today reports her breathing is improved and is being followed by pulmonary. Patient chronically wears oxygen outpatient and has been cleared by pulmonary. Patient evaluated by rehab and would be able to return home with home care although patient lives alone and has no support and is extremely unsafe and high risk for falls and noncompliance with medical follow-up. Case management/social work consulted in regards to possible ECF. Patient is significantly weak and was independent prior to this. Patient is currently afebrile denies worsening shortness of breath although is dyspneic on exam with minimal conversation. Patient is extremely hard of hearing. 12/25/2023 Patient is seen in follow-up today continues to be followed with pulmonary following. Patient has been transition to oral prednisone along with DuoNeb treatments and is continued on ceftriaxone. Patient showing some improvement in her breathing although continues to have pursed lip breathing and dyspnea with minimal exertion and conversation. Patient with generalized weakness evaluated by physical therapy and given that she lives alone unsafe discharge planning and now planning for ECF. Patient has been accepted by [facility] and currently awaiting insurance authorization which is pending at this time. Patient is afebrile denies any chest pain or worsening shortness of breath. Patient is anxious and would like to go home. No reported nausea or vomiting and patient has been tolerating diet. Recommend Ensure supplements between meals and multivitamin supplementation. Review of systems: Constitutional: No reports of fatigue, fever, or chills Cardiovascular: No reports of chest pain or palpitations Respiratory: reports of shortness of breath and pursed lipping with conversation GI: No reports of nausea, vomiting, or diarrhea : No reports of dysuria or retention Neurovascular: reports of generalized weakness All medications have been reviewed Physical exam: Gen: This is a 73-year-old female who is awake, alert and oriented x 2, baseline, extremely hard of hearing, elderly appearing, ill-appearing, cachectic with significant muscle wasting noted HEENT: Head is atraumatic, normocephalic. Pupils equal, round. Sclerae is anicteric. NECK: Supple. No JVD. No lymphadenopathy. No thyromegaly. LUNGS: Clear to auscultation. No wheezes, coarse rhonchi noted. No intercostal retractions. HEART: Regular rate and rhythm. No murmur. ABDOMEN: Soft. Bowel sounds are present. No masses. No tenderness. EXTREMITIES: No pedal edema. No calf tenderness. NEUROLOGICAL: Patient is awake, alert and oriented x 2, baseline. Cranial nerves 2 through 12 are grossly intact. Diffusely weak Assessment: Shortness of breath secondary to acute COPD exacerbation Chronic hypoxic respiratory failure on 2 L oxygen via nasal cannula Altered mental status possible CO2 narcosis and metabolic encephalopathy Acute urinary tract infection, present on admission Gait dysfunction with generalized weakness Ongoing nicotine addiction Hypertension Noncompliance with medications and follow-up moderate protein calorie malnutrition with a BMI of 16.3 DVT prophylaxis heparin subcu GI prophylaxis Full code Plan: Patient will be continued on oxygen supplementation. Continue with DuoNebs and being transition to oral prednisone and will require a taper on discharge. Continue with ceftriaxone daily and follow-up urine culture report. Continue DuoNeb treatments and being transition to oral prednisone on discharge. Patient to continue DuoNebs on discharge and unsure if she has a nebulizer Patient with generalized weakness evaluated by physical therapy recommending subacute rehab for continued strength and mobility as patient lives alone and has no support. Case management/social work consulted for possible ECF and referrals have been placed. [facility] has accepted the patient with case lizette alexander following and has submitted for insurance authorization which is currently pending possible discharge planning to ECF in the next 24 to 48 hours Due to multiple complex medical issues, overall prognosis is guarded The impression and plan of care has been dictated by Heather Pastrana, Nurse Practitioner as directed. Dr. Christ MD I have performed a history and examination and MDM of this patient, discussed the same with the dictator, and agree with the dictator's assessment and plan as written ,documented as a scribe. Based on total visit time, I have performed more than 50% of the visit. Objective - Vital Signs Vital signs: Vital Signs Temp 98.0 F 12/25/23 07:10 Pulse 76 12/25/23 09:18 Resp 18 12/25/23 07:10 BP 138/74 12/25/23 07:10 Pulse Ox 100 12/25/23 09:07 FiO2 Intake & Output 12/24/23 12/25/23 12/25/23 18:59 06:59 18:59 Intake Total 350 300 230 Output Total 400 Balance -50 300 230 Intake: Intake, IV Titration 300 Amount Sodium Chloride 0.9% 1, 300 000 ml @ 75 mls/hr IV . [id number] [facility] Rx#:[id number] Oral 350 230 Output: Urine 400 Other: Voiding Method Diaper Diaper # Voids 3 1 1 # Bowel Movements 1 2 - Labs CBC & Chem 7: 12/24/23 03:18 12/24/23 03:18 Labs: Abnormal Lab Results - Last 24 Hours (Table) 12/24/23 12/24/23 12/24/23 Range/Units 11:41 16:44 20:38 POC Glucose (mg/dL) 147 H 147 H 205 H (70-110) mg/dL 12/24/23 12/25/23 Range/Units 22:28 06:01 POC Glucose (mg/dL) 205 H 65 L (70-110) mg/dL Microbiology - Last 24 Hours (Table) 12/19/23 17:13 Blood Culture - Final Blood 12/19/23 17:13 Blood Culture - Final Blood
[2023-12-25 16:41] LABS: Glucose,Whole Blood 201 mg/dL (70-110)
[2023-12-25] MEDS ORDERED: ZINC OXIDE PASTE (Z-GUARD) 1 APPLIC TOPICAL PRN (17:50)
[2023-12-25 20:42] LABS: Glucose,Whole Blood 192 mg/dL (70-110)
[2023-12-26 05:55] LABS: Glucose,Whole Blood 81 mg/dL (70-110)
[2023-12-26 09:11] LABS: Basophils % (A) 0 %; Eosinophils # (A) 0.1 k/uL (0-0.7); Eosinophils % (A) 1 %; HCT 32.6 % (34.0-46.0); HGB 10.3 gm/dL (11.4-16.0); Hypochromasia Moderate; Lymphocytes % (A) 21 %; MCH 28.6 pg (25.0-35.0); MCHC 31.7 g/dL (31.0-37.0); MCV 90.4 fL (80.0-100.0); Mean Platelet Volume 8.5; Monocytes # (A) 0.5 k/uL (0-1.0); Monocytes % (A) 5 %; Neutrophils % (A) 72 %; Platelet Count 272 k/uL (150-450); RBC 3.61 m/uL (3.80-5.40); RDW 13.7 % (11.5-15.5); WBC 9.7 k/uL (3.8-10.6)
[2023-12-26 09:19] LABS: African American GFR (CKD) >90 (>60 ml/min/1.73 sqM); Anion Gap 3 mmol/L; Blood Urea Nitrogen 37 mg/dL (7-17); Calcium 8.6 mg/dL (8.4-10.2); Carbon Dioxide 28 mmol/L (22-30); Chloride 108 mmol/L (98-107); Glucose 81 mg/dL (74-99); Magnesium 1.9 mg/dL (1.6-2.3); Non-African American GFR(CKD) 87 (>60 ml/min/1.73 sqM); Potassium 3.7 mmol/L (3.5-5.1); Sodium 139 mmol/L (137-145)
[2023-12-26 11:23] LABS: Glucose,Whole Blood 117 mg/dL (70-110)
--- NOTE | 2023-12-26 12:56 | P.PN ---
Subjective This is a 73-year-old female patient with a known history of oxygen dependent chronic obstructive pulmonary disease with chronic and ongoing tobacco dependence, previous pneumothorax secondary to trauma, hypertension, anxiety/depression. She was brought into the emergency room on 12/19/2023 with altered mental status and confusion. Her [id number] provided most of the history. She does state the patient continues to smoke and takes her oxygen off only when smoking. She had not been compliant with her medications or her nebulized treatments for the past 6 months. She was seen in the emergency room a couple days prior due to right hand swelling that secondary to right hand swelling due to a ring stuck on her finger. Consulted today December 21, 2023 for continued complaints of shortness of breath. Chest x-ray reveals no acute pulmonary process. She is currently maintaining O2 saturations in the 90s on 3 L/min per nasal cannula. She has been afebrile. Hemodynamically stable. She is currently sitting up in bed. Awake and alert in no acute distress. She is a poor historian. She is somewhat confused to time and place. She denies any worsening shortness of breath cough or congestion. She states she is admitted because of the right hand swelling. She is having some complaints of sinus congestion. No productive cough. No hemoptysis. White count 12.5. Hemoglobin 10.3. Platelets 302. Sodium 142. Potassium 3.5. Bicarb 26. BUN 25. Creatinine 0.8. Glucose 158. She is on normal saline at 75 MLS per hour. The patient is seen today December 22, 2023 in follow-up on the regular medical floor. She is currently sitting up in bed. Awake and alert in no acute distress. She is maintaining O2 saturations in the 90s on 3 L/min per nasal cannula. She has normal saline at 75 MLS per hour. Blood cultures revealed no growth. Blood sugar 130. He is continued on DuoNeb ventilations, Symbicort, Solu-Medrol. Antibiotics in the form of ceftriaxone. The patient is seen today December 23, 2023 in follow-up on the regular medical floor. She is currently sitting up in bed. Awake and alert in no acute distress. Denies any worsening shortness of breath, cough or congestion. She is maintaining O2 saturations in the 90s on 3 L/min per nasal cannula. She is afebrile. Hemodynamically stable. Blood cultures revealed no growth. Glucose 121. She remains on DuoNeb ventilations, Symbicort, Solu-Medrol. Heparin for DVT prophylaxis. Antibiotics in the form of ceftriaxone. The patient is seen today December 24, 2023 in follow-up on the regular medical floor. She is resting in bed. Awake and alert in no acute distress. She is maintaining O2 saturations in the 90s on 2 L/min per nasal cannula. She is afebrile. Hemodynamically stable. She remains on DuoNeb inhalations, Symbicort, Solu-Medrol. Antibiotics in the form of ceftriaxone. Heparin for DVT prophylaxis. Blood cultures revealed no growth. White count 10.8. Hemoglobin 10.2. Platelets 320. Sodium 140. Potassium 3.9. Bicarb 30. BUN 25. Creatinine 0.7. Glucose 94. The patient is seen today December 25, 2023 in follow-up on the regular medical floor. She is currently sitting up in a chair. Awake and alert in no acute distress. Maintaining O2 saturations in the 90s on 3 L/min per nasal cannula. She has normal staying at 25 MLS per hour. Glucose 103. Remains on DuoNeb inhalations, Symbicort, prednisone taper. Antibiotics in the form of ceftriaxone. Blood cultures revealed no growth. The patient is seen today December 26, 2023 in follow-up on the regular medical floor. She is awake and alert in no acute distress. Currently sitting up in a chair. She denies any worsening shortness of breath, cough or congestion. She is maintaining good O2 saturations in the 90s on 3 L/min per nasal cannula white count 9.7. Hemoglobin 10.3. Platelets 272. Sodium 139. Potassium 3.7. Bicarb 28. BUN 1237. Creatinine 0.63. Glucose 81. She is continued on DuoNeb inhalations, Symbicort, prednisone taper. Heparin for DVT prophylaxis. Objective - Vital Signs Vital signs: Vital Signs Temp 98.4 F 12/26/23 07:25 Pulse 95 12/26/23 11:50 Resp 17 12/26/23 07:25 BP 147/70 12/26/23 07:25 Pulse Ox 99 12/26/23 07:25 FiO2 Intake & Output 12/25/23 12/26/23 12/26/23 18:59 06:59 18:59 Intake Total 230 900 Balance 230 900 Weight 45.813 kg Intake: Intake, IV Titration 900 Amount Sodium Chloride 0.9% 1, 900 000 ml @ 75 mls/hr IV . [id number] ON LICENSE OF [facility] Rx#:[id number] Oral 230 Other: Voiding Method Diaper Diaper Diaper # Voids 3 1 1 # Bowel Movements 3 1 - Exam GENERAL EXAM: Alert, pleasant 73-year-old female, sitting up in a chair, on 3 L nasal cannula, in no distress. HEAD: Normocephalic. EYES: Normal reaction of pupils, equal size. NOSE: Clear with pink turbinates. THROAT: No erythema or exudates. NECK: No masses, no JVD. CHEST: No chest wall deformity. LUNGS: Equal air entry with no crackles, wheeze, rhonchi or dullness. D iminished. CVS: S1 and S2 normal with no audible murmur, regular rhythm. ABDOMEN: No hepatosplenomegaly, normal bowel sounds, no guarding or rigidity. SPINE: No scoliosis or deformity SKIN: No rashes CENTRAL NERVOUS SYSTEM: No focal deficits, tone is normal in all 4 extremities. EXTREMITIES: There is slight right hand edema. No clubbing, no cyanosis. Peripheral pulses are intact. - Labs CBC & Chem 7: 12/26/23 08:19 12/26/23 08:19 Labs: Abnormal Lab Results - Last 24 Hours (Table) 12/25/23 12/25/23 12/26/23 Range/Units 16:40 20:41 08:19 RBC 3.61 L (3.80-5.40) m/uL Hgb 10.3 L (11.4-16.0) gm/dL Hct 32.6 L (34.0-46.0) % Chloride (98-107) mmol/L BUN (7-17) mg/dL POC Glucose (mg/dL) 201 H 192 H (70-110) mg/dL 12/26/23 12/26/23 Range/Units 08:19 11:22 RBC (3.80-5.40) m/uL Hgb (11.4-16.0) gm/dL Hct (34.0-46.0) % Chloride 108 H (98-107) mmol/L BUN 37 H (7-17) mg/dL POC Glucose (mg/dL) 117 H (70-110) mg/dL Assessment and Plan Assessment: Altered mental status of unclear etiology. CT scan of the brain reveals atrophy with chronic appearing periventricular white matter ischemic changes Acute on chronic hypoxemic respiratory failure secondary to acute exacerbation of COPD Chronic and ongoing tobacco dependence History of medication noncompliance for the past 6 months according to family History of falls History of previous traumatic right-sided pneumothorax Hypertension Anxiety/depression Poor overall functional performance based on the above-mentioned multiple com orbidities Plan: The patient was seen and evaluated Medications and labs reviewed Continue on her oxygen Continue Symbicort, DuoNeb inhalations Complete a prednisone taper Plan is for [facility] I have personally seen and examined the patient, performed the documentation and the assessment and plan as written. Number of minutes spent on the visit: 10.
--- NOTE | 2023-12-26 14:16 | P.DS ---
Providers Date of admission: 12/24/23 09:56 Expected date of discharge: 12/26/23 Attending physician: Loy Polo Consults: 12/21/23 11:21 Consult Physician Routine Consulting Provider: Isabelle Bray Consult Reason/Comments: Ac on ch resp failure/ COPD exac Do you want consulting provider notified?: Yes Primary care physician: Janel Bailey Hospital Course: Final diagnosis Shortness of breath secondary to acute COPD exacerbation Chronic hypoxic respiratory failure on 2 L oxygen via nasal cannula Altered mental status possible CO2 narcosis and metabolic encephalopathy Acute urinary tract infection, present on admission Deafness/hard of hearing Gait dysfunction with generalized weakness Ongoing nicotine addiction Hypertension Noncompliance with medications and follow-up moderate protein calorie malnutrition with a BMI of 16.3 DVT prophylaxis heparin subcu GI prophylaxis Full code Discharge disposition Patient is being discharged in a stable condition with guarded prognosis to [facility]. Patient will follow-up with Dr. Janel Bailey in the outpatient setting upon discharge. Patient is to continue with oral Ceftin twice daily for 5 days to complete the course along with the prednisone taper and follow-up with pulmonary as scheduled. Total time taken is greater than 35 minutes. Hospital course This is a 73-year-old female who was recently admitted with altered mental status with concerns of acute urinary tract infection as well as increased shortness of breath and COPD exacerbation. Patient is acute on chronic hypoxic respiratory failure and chronically wears oxygen outpatient. Per family patient has been extremely noncompliant with follow-up and taking medications for at least over the last 6 months. Patient currently lives alone and unsafe to discharge home as she has no one that can come and check on her. Patient evaluated by physical therapy, need rehab for continued strength and mobility. Patient has been accepted at [facility] and insurance authorization was obtained. Continue statin twice daily for the next 5 days to complete the course along with DuoNeb treatments and a steroid taper. Patient to follow-up with pulmonary outpatient. Please refer to other consultation notes for further HPI. Currently no reports of chest pain, shortness of breath, or palpitations. Patient is afebrile. No reports of nausea or vomiting and patient is tolerating diet. Continue monitoring blood sugars before meals and at bedtime and use sliding scale. Continue with Ensure supplements between meals. Patient will be going to [facility] today. Guarded prognosis and high risk for readmission Physical exam: Gen: This is a 73-year-old female who is awake, alert and oriented x 3, thin built, elderly appearing, cachectic, extremely hard of hearing HEENT: Head is atraumatic, normocephalic. Pupils equal, round. Sclerae is anicteric. NECK: Supple. No JVD. No lymphadenopathy. No thyromegaly. LUNGS: Diminished breath sounds bilaterally with coarse scattered rhonchi. Pursed lip breathing noted on examination . no intercostal retractions. HEART: Regular rate and rhythm. No murmur. ABDOMEN: Soft. Thin, scaphoid bowel sounds are present. No masses. No tenderness. EXTREMITIES: No pedal edema. No calf tenderness. NEUROLOGICAL: Patient is awake, alert and oriented x2-3. Cranial nerves 2 through 12 are grossly intact. Diffusely weak Please refer to medication reconciliation sheet for a list of medications. The impression and plan of care has been dictated by Heather Pastrana, Nurse Practitioner as directed. Dr. Christ MD I have performed a history and examination and MDM of this patient, discussed the same with the dictator, and agree with the dictator's assessment and plan as written ,documented as a scribe. Based on total visit time, I have performed more than 50% of the visit. Patient Condition at Discharge: Stable Plan - Discharge Summary Discharge Rx Participant: No New Discharge Prescriptions: New Ipratropium-Albuterol Nebulize [Duoneb 0.5 mg-3 mg/3 ml Soln] 3 ml INHALATION RT-Q4H each Heparin Sodium,Porcine (1 ml) [Heparin Sodium] 5,000 unit SQ Q12HR each predniSONE 10 mg PO DIRECTED #30 tab cefUROXime axetiL [Ceftin] 500 mg PO BID 5 Days #10 tab Folic Acid 1 mg PO DAILY #30 tablet Multivitamins, Thera [Multivitamin] 1 tab PO DAILY #30 tablet INSULIN ASPART (NovoLOG) [NovoLOG (formulary)] 0 unit SQ ACHS each Budesonide-Formot 160-4.5 Mcg [Symbicort 160-4.5 Mcg Inhaler] 2 puff INHALATION RT-BID each Thiamine [Vitamin B-1] 100 mg PO DAILY #30 tablet Discharge Medication List Budesonide-Formot 160-4.5 Mcg [Symbicort 160-4.5 Mcg Inhaler] 2 puff INHALATION RT-BID each 12/25/23 [Rx] Folic Acid 1 mg PO DAILY #30 tablet 12/25/23 [Rx] Heparin Sodium,Porcine (1 ml) [Heparin Sodium] 5,000 unit SQ Q12HR each 12/25/23 [Rx] INSULIN ASPART (NovoLOG) [NovoLOG (formulary)] 0 unit SQ ACHS each 12/25/23 [Rx] Ipratropium-Albuterol Nebulize [Duoneb 0.5 mg-3 mg/3 ml Soln] 3 ml INHALATION RT-Q4H each 12/25/23 [Rx] Multivitamins, Thera [Multivitamin] 1 tab PO DAILY #30 tablet 12/25/23 [Rx] Thiamine [Vitamin B-1] 100 mg PO DAILY #30 tablet 12/25/23 [Rx] cefUROXime axetiL [Ceftin] 500 mg PO BID 5 Days #10 tab 12/25/23 [Rx] predniSONE 10 mg PO DIRECTED #30 tab 12/25/23 [Rx] Follow up Appointment(s)/Referral(s): [facility] [NON-STAFF] - As Needed (Please call to set up transportation t o appointments. They will need at least 24h notice.) Janel Bailey MD [Primary Care Provider] - 1-2 days [facility], [NON-STAFF] - As Needed Activity/Diet/Wound Care/Special Instructions: Patient going to [facility] Activity as tolerated Continue with DuoNeb treatments and inhalers along with steroid taper Continue monitoring blood sugars ACHS and continue with sliding scale as needed NovoLog sliding scale 0-150 equals 0 units 151-200 equals 2 units 201-250 equals 4 units 251-300 equals 6 units 301-350 equals 8 units 351-400 equals 10 units Please notify provider if blood sugar is 400 or above Continue heart healthy diabetic diet Continue Glucerna supplements in between meals Continue antibiotics for 5 days to complete the course Follow-up with pulmonary outpatient Follow-up with primary care provider and/or establish with visiting physicians Please call [facility] if you are interested in having a physician come directly to your home: #[phone] Discharge/Stand Alone Forms: Community Resources, Help In The Home Discharge Disposition: TRANSFER TO SNF/CRITICAL ACCESS HOSPITAL
[2023-12-26 14:27] VITALS: BP 120/64; RESP 20; TEMP 98.3
[2023-12-26 15:51] VITALS: PULSE 94
== END 2023-12-26 18:05 | DRG 190 ==
LOC: EC 11:56 → 5NMEDONC 16:59 → 4SSUR 17:31 → OBSVTOIN 12-24 09:56
PROVIDERS: ADMIT Hospitalist; ATTEND Hospitalist
DX: J44.1 Chronic obstructive pulmonary disease with (acute) exacerbation (principal); G93.41 Metabolic encephalopathy; J96.21 Acute and chronic respiratory failure with hypoxia; N39.0 Urinary tract infection, site not specified; E44.0 Moderate protein-calorie malnutrition; Z68.1 Body mass index [BMI] 19.9 or less, adult; E86.0 Dehydration; W49.04XA Ring or other jewelry causing external constriction, initial encounter; I10 Essential (primary) hypertension; H91.90 Unspecified hearing loss, unspecified ear; F41.9 Anxiety disorder, unspecified; R26.89 Other abnormalities of gait and mobility; F32.A Depression, unspecified; T50.916A Underdosing of multiple unspecified drugs, medicaments and biological substances, initial encounter; Z91.128 Patient's intentional underdosing of medication regimen for other reason; I49.1 Atrial premature depolarization; F17.200 Nicotine dependence, unspecified, uncomplicated; Z99.81 Dependence on supplemental oxygen; Z91.81 History of falling; Z28.310 Unvaccinated for COVID-19; Z71.6 Tobacco abuse counseling
CPT/HCPCS: 36415; 70450; 71046; 80048; 80053; 80306; 80320; 81001; 82140; 82803; 83036; 83735; 84443; 84484; 84550; 85025; 85610; 85730; 87040; 93005; 94640; 94760; 96374; 96375; 99285

== ENCOUNTER 2024-01-17 01:05 | Inpatient (IN) | payer MEDICARE ==
--- NOTE | 2024-01-17 02:00 | XR ---
EXAM: XR Chest, 1 View CLINICAL HISTORY: ITS.REASON XR Reason: dyspnea TECHNIQUE: Frontal view of the chest. COMPARISON: No relevant prior studies available. FINDINGS: Lungs: See below. Pleural space: RIGHT basal pneumothorax, compared to December 19, 2023. Trace bilateral pleural effusions. Flattening of the diaphragms and emphysema, consistent with COPD. Heart: Unremarkable. No cardiomegaly. Mediastinum: Unremarkable. Normal mediastinal contour. Bones/joints: Unremarkable. No acute fracture. Other findings: December 19, 2023. IMPRESSION: 1. RIGHT basal pneumothorax, compared to December 19, 2023. 2. Trace bilateral pleural effusions. Flattening of the diaphragms and emphysema, consistent with COPD. <MYCVCSECTION> Communications: 01/17/24 02:01 Call Doctor Regarding Other, called PAR[facility] Sam on 01/16 02:01 (-04:00)
[2024-01-17 02:07] LABS: Basophils % (A) 0 %; Eosinophils # (A) 0.2 k/uL (0-0.7); Eosinophils % (A) 2 %; HCT 39.8 % (34.0-46.0); Hypochromasia Slight; INR 0.9 (<1.2); Lymphocytes # (A) 2.7 k/uL (1.0-4.8); Lymphocytes % (A) 37 %; MCH 30.5 pg (25.0-35.0); MCHC 32.6 g/dL (31.0-37.0); MCV 93.6 fL (80.0-100.0); Mean Platelet Volume 8.4; Monocytes # (A) 0.6 k/uL (0-1.0); Monocytes % (A) 8 %; Neutrophils # (A) 3.5 k/uL (1.3-7.7); Neutrophils % (A) 48 %; Partial Thromboplastin Time 22.1 sec (22.0-30.0); Platelet Count 342 k/uL (150-450); Prothrombin Time 9.9 sec (10.0-12.5); RBC 4.26 m/uL (3.80-5.40); RDW 15.2 % (11.5-15.5); WBC 7.2 k/uL (3.8-10.6)
[2024-01-17] MEDS: LIDOCAINE 1% INJ 10MG/ML (20 ML MDV) SQ ONE (02:40)
[2024-01-17 02:41] LABS: VBG PH 7.37 (7.31-7.41)
--- NOTE | 2024-01-17 03:00 | ED ---
SOB HPI - General Chief Complaint: Shortness of Breath Stated Complaint: SUSAN Time Seen by Provider: 01/17/24 01:09 Source: EMS Mode of arrival: EMS Limitations: altered mental status, physical limitation - History of Present Illness Initial Comments: This patient is a 74-year-old woman who reportedly has history of COPD who presents to have evaluation for shortness of breath. EMS reports they were called and found the patient to be in significant distress. She was sitting in tripod position tachypneic. On arrival the patient is not able to give much history due to dyspnea and there does appear to be element of delirium versus dementia. The patient is denying chest pain. She denies sputum. She denied fever. MD Complaint: shortness of breath -: unknown Severity scale (1-10): 0 Consistency: constant Improves With: oxygen, upright position Known History Of: COPD Treatments Prior to Arrival: oxygen - Related Data Home Oxygen Therapy: Yes Home Oxygen Amount: 2 Liters Home Medications Medication Instructions Recorded Confirmed Acetaminophen [Tylenol] 650 mg PO Q6H PRN 01/17/24 01/17/24 Cholecalciferol [Vitamin D3 (25 50 mcg PO DAILY 01/17/24 01/17/24 Mcg = 1000 Iu)] Fluticasone Propion/Salmeterol 1 puff INHALATION RT-BID 01/17/24 01/17/24 [Fluticasone-Salmeterol 250-50] Ipratropium-Albuterol Nebulize 3 ml INHALATION RT-Q4H 01/17/24 01/17/24 [Duoneb 0.5 mg-3 mg/3 ml Soln] Previous Rx's Medication Instructions Recorded Folic Acid 1 mg PO DAILY #30 tablet 12/25/23 Multivitamins, Thera [Multivitamin 1 tab PO DAILY #30 tablet 12/25/23 (formulary)] Thiamine [Vitamin B-1] 100 mg PO DAILY #30 tablet 12/25/23 ALPRAZolam [Xanax] 0.25 mg PO BID PRN tab 01/31/24 HYDROcodone/APAP 5-325MG [[place] 1 each PO Q6H PRN tab 01/31/24 5-325] Heparin Sodium,Porcine (1 ml) 5,000 unit SQ Q12HR each 01/31/24 [Heparin Sodium] Nystatin 100,000 Unit/ml Susp 500,000 unit PO QID 6 Days #0 ml 01/31/24 [Mycostatin Oral Susp] Pantoprazole [Protonix] 40 mg PO DAILY tab 01/31/24 Allergies Allergy/AdvReac Type Severity Reaction Status Date / Time No Known Allergies Allergy Verified 01/17/24 08:33 Review of Systems ROS Statement: Those systems with pertinent positive or pertinent negative responses have been documented in the HPI. ROS Other: All systems not noted in ROS Statement are negative. Limitations: ROS unobtainable due to patients medical condition Constitutional: Denies: fever Respiratory: Reports: cough, dyspnea Cardiovascular: Denies: chest pain, edema Gastrointestinal: Denies: abdominal pain, vomiting Musculoskeletal: Denies: back pain Neurological: Denies: headache Past Medical History Past Medical History: COPD, Hypertension Additional Past Medical History / Comment(s): [facility] History of Any Multi-Drug Resistant Organisms: None Reported Past Surgical History: Section Additional Past Surgical History / Comment(s): vain stripping left leg Past Anesthesia/Blood Transfusion Reactions: No Reported Reaction Past Psychological History: Anxiety, Depression Smoking Status: Current every day smoker Past Alcohol Use History: None Reported Past Drug Use History: None Reported - Past Family History Mother Family Medical History: No Reported History Additional Family Medical History / Comment(s): at 80 years old of old age. Father Family Medical History: No Reported History Additional Family Medical History / Comment(s): at 85 years old of old age. General Exam Limitations: no limitations General appearance: alert, in distress Head exam: Present: atraumatic, normocephalic Eye exam: Present: normal appearance. Absent: scleral icterus, conjunctival injection ENT exam: Present: normal oropharynx Neck exam: Present: normal inspection Respiratory exam: Present: respiratory distress, wheezes, accessory muscle use, decreased breath sounds. Absent: rales, rhonchi, stridor Cardiovascular Exam: Present: regular rate, normal heart sounds. Absent: systolic murmur, diastolic murmur, rubs, gallop GI/Abdominal exam: Present: soft. Absent: distended, tenderness, guarding, rebound, rigid, mass Extremities exam: Present: normal inspection, normal capillary refill. Absent: pedal edema, calf tenderness Back exam: Present: normal inspection. Absent: CVA tenderness (R), CVA tenderness (L) Neurological exam: Present: alert Skin exam: Present: warm, dry, intact, normal color. Absent: rash Course Vital Signs 01/17/24 01/17/24 01/17/24 01:09 01:19 03:20 Temperature 97.4 F L Pulse Rate 98 63 Pulse Rate [ Pulse Oximetery ] Respiratory 30 H 18 Rate Blood Pressure 159/116 132/78 Blood Pressure [Right Arm] O2 Sat by Pulse 93 L 100 Oximetry Fraction of 45 Inspired Oxygen (FIO2) 01/17/24 01/17/24 01/17/24 04:00 05:25 06:00 Temperature Pulse Rate 73 71 Pulse Rate [ Pulse Oximetery ] Respiratory 20 20 Rate Blood Pressure 127/77 137/70 Blood Pressure [Right Arm] O2 Sat by Pulse 99 90 L Oximetry Fraction of 45 Inspired Oxygen (FIO2) 01/17/24 01/17/24 01/17/24 07:13 08:00 08:03 Temperature 97.4 F L Pulse Rate 68 68 Pulse Rate [ 73 Pulse Oximetery ] Respiratory 20 18 Rate Blood Pressure Blood Pressure 141/71 [Right Arm] O2 Sat by Pulse 98 95 93 L Oximetry Fraction of Inspired Oxygen (FIO2) 01/17/24 01/17/24 08:06 08:13 Temperature 97.6 F Pulse Rate 67 68 Pulse Rate [ Pulse Oximetery ] Respiratory 18 Rate Blood Pressure 138/72 Blood Pressure [Right Arm] O2 Sat by Pulse 95 Oximetry Fraction of Inspired Oxygen (FIO2) Procedures - Chest Tube Insertion Consent Obtained: verbal consent Side of Procedure: right Indication: Pneumothorax Placed on monitor/pulse oximetry: Yes Site Prep: Chloroprep Local Anesthesia: Lidocaine 1% Insertion Site: Other (Anterior) Scalpel: #11 Open into Pleural Space Using: Other Tube Size ([place]ican): Other Returns: Air Sutured in Place: No Attached to Suction: Yes Type of Suction: Pleuravac Repeat X-ray Results: Lung Inflated Patient Tolerated Procedure: well Medical Decision Making - Medical Decision Making Patient had chest x-ray that I interpreted as showing right-sided pneumothorax. I reviewed the x-ray findings with the patient and discussed that the usual treatment is a chest tube. The patient did ask some questions regarding anesthesia and I explained this with her. She then did give verbal consent. See the procedure note. I did place the Thora vent tube without complications. Repeat x-ray does show that there has been inflation of the lung. Patient's case is discussed with pulmonology service. Patient be admitted also with cardiothoracic consult. Was pt. sent in by a medical professional or institution (, [facility], QUAD STAYER, urgent care, hospital, or senior living...) When possible be specific @ -[No] Did you speak to anyone other than the patient for history (EMS, parent, family, police, friend...)? What history was obtained from this source @ -[EMS contributed to history Did you review nursing and triage notes (agree or disagree)? Why? @ -[I reviewed and agree with nursing and triage notes] Were old charts reviewed (outside hosp., previous admission, EMS record, old EKG, old radiological studies, urgent care reports/EKG's, senior living records)? Report findings @ -[No old charts were reviewed] Differential Diagnosis (chest pain, altered mental status, abdominal pain women, abdominal pain men, vaginal bleeding, weakness, fever, dyspnea, syncope, headache, dizziness, GI bleed, back pain, seizure, CVA, palpatations, mental health, musculoskeletal)? @ -[Differential Dyspnea: Coronary syndrome, arrhythmia, tamponade, asthma, COPD, pulmonary embolism, pneumonia, pneumothorax, pulmonary effusion, anaphylaxis, diabetic ketoacidosis, flailed chest, pulmonary contusion, diaphragmatic rupture, anemia, neuromuscular, this is not meant to be an all-inclusive list. EKG interpreted by me (3pts min.). @ -[As above] X-rays interpreted by me (1pt min.). @ -[I interpreted as above CT interpreted by me (1pt min.). @ -[None done] U/S interpreted by me (1pt. min.). @ -[None done] What testing was considered but not performed or refused? (CT, X-rays, U/S, labs)? Why? @ -[None] What meds were considered but not given or refused? Why? @ -[None] Did you discuss the management of the patient with other professionals (professionals i.e. [facility] Rubio, QUAD STAYER, lab, RT, psych nurse, social science research assistant, shingle grader, teacher, trust officer, case management associate)? Give summary @ -Case discussed with the admitting physician and treatment recommendations incorporated Was smoking cessation discussed for >3mins.? @ -[No] Was critical care preformed (if so, how long)? @ -Yes, 30 minutes Were there social determinants of health that impacted care today? How? (Homelessness, low income, unemployed, alcoholism, drug addiction, transportation, low edu. Level, literacy, decrease access to med. care, skilled nursing, rehab)? @ -[No] Was there de-escalation of care discussed even if they declined (Discuss DNR or withdrawal of care, Hospice)? DNR status @ -[No] What co-morbidities impacted this encounter? (DM, HTN, Smoking, COPD, CAD, Cancer, CVA, ARF, Chemo, Hep., AIDS, mental health diagnosis, sleep apnea, morbid obesity)? @ -[COPD, smoking Was patient admitted / discharged? Hospital course, mention meds given and r oute, prescriptions, significant lab abnormalities, going to OR and other pertinent info. @ -[As above, patient admitted Undiagnosed new problem with uncertain prognosis? @ -[No] Drug Therapy requiring intensive monitoring for toxicity (Heparin, Nitro, Insulin, Cardizem)? @ -[No] Were any procedures done? @ -[Chest tube placement, see the above note Diagnosis/symptom? @ -[Acute spontaneous pneumothorax Dyspnea Acute delirium versus dementia Acute, or Chronic, or Acute on Chronic? @ -[Acute Uncomplicated (without systemic symptoms) or Complicated (systemic symptoms)? @ -[Complicated by dyspnea Side effects of treatment? @ -[No] Exacerbation, Progression, or Severe Exacerbation? @ -[No] Poses a threat to life or bodily function? How? (Chest pain, [place], [place], pneumonia, PE, COPD, DKA, ARF, appy, cholecystitis, CVA, Diverticulitis, Homicidal, Suicidal, threat to staff... and all critical care pts) @ -[Yes, respiratory failure may develop followed by - Lab Data Result diagrams: 01/31/24 06:56 01/31/24 06:56 Lab Results 01/17/24 01/17/24 01/17/24 Range/Units 01:20 01:20 01:20 WBC 7.2 (3.8-10.6) k/uL RBC 4.26 (3.80-5.40) m/uL Hgb 13.0 (11.4-16.0) gm/dL Hct 39.8 (34.0-46.0) % MCV 93.6 (80.0-100.0) fL MCH 30.5 (25.0-35.0) pg MCHC 32.6 (31.0-37.0) g/dL RDW 15.2 (11.5-15.5) % Plt Count 342 (150-450) k/uL MPV 8.4 Neutrophils % 48 % Lymphocytes % 37 % Monocytes % 8 % Eosinophils % 2 % Basophils % 0 % Neutrophils # 3.5 (1.3-7.7) k/uL Lymphocytes # 2.7 (1.0-4.8) k/uL Monocytes # 0.6 (0-1.0) k/uL Eosinophils # 0.2 (0-0.7) k/uL Basophils # 0.0 (0-0.2) k/uL Hypochromasia Slight PT 9.9 L (10.0-12.5) sec INR 0.9 (<1.2) APTT 22.1 (22.0-30.0) sec VBG pH (7.31-7.41) VBG pCO2 (37-51) mmHg VBG HCO3 (24-28) mmol/L Sodium 137 (137-145) mmol/L Potassium 4.1 (3.5-5.1) mmol/L Chloride 99 (98-107) mmol/L Carbon Dioxide 31 H (22-30) mmol/L Anion Gap 7 mmol/L BUN 35 H (7-17) mg/dL Creatinine 0.67 (0.52-1.04) mg/dL Est GFR (CKD-EPI)AfAm >90 (>60 ml/min/1.73 sqM) Est GFR (CKD-EPI)NonAf 86 (>60 ml/min/1.73 sqM) Glucose 200 H (74-99) mg/dL Plasma Lactic Acid [place] (0.7-2.0) mmol/L Calcium 9.5 (8.4-10.2) mg/dL Total Bilirubin 0.6 (0.2-1.3) mg/dL AST 28 (14-36) U/L ALT 18 (4-34) U/L Alkaline Phosphatase 93 (38-126) U/L Troponin I (0.000-0.034) ng/mL NT-Pro-B Natriuret Pep 207 pg/mL Total Protein 7.3 (6.3-8.2) g/dL Albumin 4.2 (3.5-5.0) g/dL 01/17/24 01/17/24 01/17/24 Range/Units 01:20 01:20 02:15 WBC (3.8-10.6) k/uL RBC (3.80-5.40) m/uL Hgb (11.4-16.0) gm/dL Hct (34.0-46.0) % MCV (80.0-100.0) fL MCH (25.0-35.0) pg MCHC (31.0-37.0) g/dL RDW (11.5-15.5) % Plt Count (150-450) k/uL MPV Neutrophils % % Lymphocytes % % Monocytes % % Eosinophils % % Basophils % % Neutrophils # (1.3-7.7) k/uL Lymphocytes # (1.0-4.8) k/uL Monocytes # (0-1.0) k/uL Eosinophils # (0-0.7) k/uL Basophils # (0-0.2) k/uL Hypochromasia PT (10.0-12.5) sec INR (<1.2) APTT (22.0-30.0) sec VBG pH 7.37 (7.31-7.41) VBG pCO2 53 H (37-51) mmHg VBG HCO3 31 H (24-28) mmol/L Sodium (137-145) mmol/L Potassium (3.5-5.1) mmol/L Chloride (98-107) mmol/L Carbon Dioxide (22-30) mmol/L Anion Gap mmol/L BUN (7-17) mg/dL Creatinine (0.52-1.04) mg/dL Est GFR (CKD-EPI)AfAm (>60 ml/min/1.73 sqM) Est GFR (CKD-EPI)NonAf (>60 ml/min/1.73 sqM) Glucose (74-99) mg/dL Plasma Lactic Acid [place] 1.6 (0.7-2.0) mmol/L Calcium (8.4-10.2) mg/dL Total Bilirubin (0.2-1.3) mg/dL AST (14-36) U/L ALT (4-34) U/L Alkaline Phosphatase (38-126) U/L Troponin I <0.012 (0.000-0.034) ng/mL NT-Pro-B Natriuret Pep pg/mL Total Protein (6.3-8.2) g/dL Albumin (3.5-5.0) g/dL - EKG Data -: EKG Interpreted by Me EKG shows normal: sinus rhythm, intervals (Normal), QRS complexes (LVH) Rate: normal (90 bpm) Interpretation: LVH Disposition Clinical Impression: COPD (chronic obstructive pulmonary disease), Spontaneous pneumothorax Disposition: ADMITTED IP TO THIS HOSP Condition: Fair Is patient prescribed a controlled substance at d/c from ED?: No
[2024-01-17 03:02] LABS: ALT 18 U/L (4-34); AST 28 U/L (14-36); African American GFR (CKD) >90 (>60 ml/min/1.73 sqM); Albumin 4.2 g/dL (3.5-5.0); Alkaline Phosphatase 93 U/L (38-126); Anion Gap 7 mmol/L; Blood Urea Nitrogen 35 mg/dL (7-17); Calcium 9.5 mg/dL (8.4-10.2); Carbon Dioxide 31 mmol/L (22-30); Chloride 99 mmol/L (98-107); Glucose 200 mg/dL (74-99); Non-African American GFR(CKD) 86 (>60 ml/min/1.73 sqM); Potassium 4.1 mmol/L (3.5-5.1); Sodium 137 mmol/L (137-145); Total Bilirubin 0.6 mg/dL (0.2-1.3); Total Protein 7.3 g/dL (6.3-8.2)
[2024-01-17] MEDS ORDERED: NALOXONE 0.4 MG/ML 1 ML VIAL IVP PRN (03:06)
--- NOTE | 2024-01-17 03:08 | XR ---
EXAM: XR Chest, 1 View CLINICAL HISTORY: ITS.REASON XR Reason: thoravent placement TECHNIQUE: Frontal view of the chest. COMPARISON: No relevant prior studies available. FINDINGS: Lungs: Emphysema with hyperinflation. Flattening of the diaphragms. No consolidation. Pleural space: Unremarkable. No pneumothorax. Heart: Cardiomegaly. Calcified aorta. Mediastinum: Unremarkable. Normal mediastinal contour. Bones/joints: Unremarkable. No acute fracture. IMPRESSION: Emphysema with hyperinflation. Flattening of the diaphragms.
[2024-01-17 03:11] LABS: NT-Pro-B-Type Natriuretic Pept 207 pg/mL
[2024-01-17] MEDS: HYDROmorphone 1 MG/ML 1 ML SYRINGE IVP STA (03:13)
[2024-01-17] MEDS: methylPREDNISolone SOD SUCCI 125 MG/2 ML VIAL IV STA (04:19)
--- NOTE | 2024-01-17 07:10 | P.CNPUL ---
History of Present Illness Consult date: 01/17/24 Requesting physician: Barry Barone Reason for consult: pneumothorax Chief complaint: Respiratory distress History of present illness: Patient is a 73-year-old white female with past medical history significant for COPD/emphysema, chronic hypoxemic respiratory failure, chronic ongoing tobacco d ependence, previous right-sided traumatic pneumothorax, hypertension, anxiety/depression. Of note, patient recently had a hospitalization December 18 through December 25 for acute COPD exacerbation. I believe she was discharged to [facility]. She was brought back into the emergency department earlier this morning and significant respiratory distress. She was initially placed on BiPAP support with settings 12/6 and FiO2 of 100%. Initial chest x- ray showing a right basilar pneumothorax. ER physician did insert a right sided Thora vent. Attached to atrium. Currently to suction at -20 cm H2O. There is intermittent airleak. Follow-up chest x-ray shows near complete resolution of right-sided pneumothorax. Patient is currently alert but a very poor historian. Her oxygen demands have decreased. Currently on 3 L/min nasal cannula. SpO2 97%. Not in any apparent respiratory distress at the moment. Equal breath sounds. He was confused and disoriented. Unable to provide any information for HPI. No clear signs of trauma. Patient is known to have a COPD/emphysema. VBG done on arrival shows a pCO2 of 53, pH of 7.37. CBC and CMP unremarkable. Troponin less than 0.012. NT proBNP 207. She is currently in the emergency department, room 1 awaiting a bed on the selective care unit. Review of Systems ROS unobtainable: due to mental status Past Medical History Past Medical History: COPD, Hypertension Additional Past Medical History / Comment(s): [facility] History of Any Multi-Drug Resistant Organisms: None Reported Past Surgical History: Section Additional Past Surgical History / Comment(s): vain stripping left leg Past Anesthesia/Blood Transfusion Reactions: No Reported Reaction Past Psychological History: Anxiety, Depression Smoking Status: Current every day smoker Past Alcohol Use History: None Reported Past Drug Use History: None Reported - Past Family History Mother Family Medical History: No Reported History Additional Family Medical History / Comment(s): at 80 years old of old age. Father Family Medical History: No Reported History Additional Family Medical History / Comment(s): at 85 years old of old age. Medications and Allergies Home Medications Medication Instructions Recorded Confirmed Type Budesonide-Formot 160-4.5 Mcg 2 puff INHALATION RT-BID each 12/25/23 Rx [Symbicort 160-4.5 Mcg Inhaler] Folic Acid 1 mg PO DAILY #30 tablet 12/25/23 Rx Heparin Sodium,Porcine (1 ml) 5,000 unit SQ Q12HR each 12/25/23 Rx [Heparin Sodium] INSULIN ASPART (NovoLOG) [NovoLOG 0 unit SQ ACHS each 12/25/23 Rx (formulary)] Ipratropium-Albuterol Nebulize 3 ml INHALATION RT-Q4H each 12/25/23 Rx [Duoneb 0.5 mg-3 mg/3 ml Soln] Multivitamins, Thera [Multivitamin] 1 tab PO DAILY #30 tablet 12/25/23 Rx Thiamine [Vitamin B-1] 100 mg PO DAILY #30 tablet 12/25/23 Rx cefUROXime axetiL [Ceftin] 500 mg PO BID 5 Days #10 tab 12/25/23 Rx predniSONE 10 mg PO DIRECTED #30 tab 12/25/23 Rx Allergies Allergy/AdvReac Type Severity Reaction Status Date / Time No Known Allergies Allergy Verified 12/19/23 13:03 Physical Exam Vitals: Vital Signs Temp Pulse Resp BP Pulse Ox FiO2 01/17/24 06:00 71 20 137/70 90 L 01/17/24 05:25 45 01/17/24 04:00 73 20 127/77 99 01/17/24 03:20 63 18 132/78 100 01/17/24 01:19 45 01/17/24 01:09 97.4 F L 98 30 H 159/116 93 L Intake and Output 01/16/24 01/16/24 01/17/24 14:59 22:59 06:59 Other: Weight 45.359 kg GENERAL EXAM: Alert, very frail and cachectic appearing 74-year-old white female, lying on her left side, comfortable in no apparent distress. HEAD: Normocephalic and atraumatic EYES: Normal reaction of pupils, equal size. NOSE: Clear with pink turbinates. THROAT: No erythema or exudates. NECK: No masses, no JVD. CHEST: No chest wall deformity. LUNGS: Equal air entry with no crackles, wheeze, rhonchi or dullness. No conversational dyspnea or accessory muscle use. On 3 L/min nasal cannula. SpO2 97%. Right chest ThoraVent attached to atrium and suction at -20 cm H2O. Intermittent airleak. CVS: S1 and S2 normal with no audible murmur, regular rhythm. No extra heart sounds ABDOMEN: No hepatosplenomegaly, active bowel sounds, no guarding or rigidity. SPINE: No scoliosis or deformity SKIN: No rashes CENTRAL NERVOUS SYSTEM: No focal deficits, tone is normal in all 4 extremities. EXTREMITIES: There is no peripheral edema, clubbing, or cyanosis. Peripheral pulses are intact. Results - Laboratory Findings CBC and BMP: 01/17/24 01:20 01/17/24 01:20 PT/INR, D-dimer PT 9.9 sec (10.0-12.5) L 01/17/24 01:20 INR 0.9 (<1.2) 01/17/24 01:20 Abnormal lab findings: Abnormal Labs 01/17/24 01/17/24 01/17/24 01:20 01:20 02:15 PT 9.9 L VBG pCO2 53 H VBG HCO3 31 H Carbon Dioxide 31 H BUN 35 H Glucose 200 H - Diagnostic Findings Chest x-ray: image reviewed Assessment and Plan Assessment: Recurrent right-sided pneumothorax status post Thora vent insertion, with near complete resolution. Acute hypoxemic respiratory failure, secondary to above, currently on 3 L/min nasal cannula Altered mental status, unclear etiology History of traumatic right-sided pneumothorax, 2021 COPD/emphysema Chronic ongoing tobacco dependence History of falls History of medication noncompliance Hypertension Plan: Patient's medications, labs, chest x-rays reviewed Patient is status post right-sided ThoraVent, ThoraVent currently hooked to atrium and suction at -20 cm H2O. Follow-up chest x-ray shows near complete resolution of right-sided pneumothorax Oxygen requirements have lessened, currently on 3 L/min nasal cannula Cardiothoracic surgery also consulted, as this is patient's second, recurrent pneumothorax No clear cut trauma. Patient is known to have severe bullous emphysema/copd. Continue combination of bronchodilators, Symbicort inhaler, and prednisone taper COPD appears stable on my evaluation Will continue to follow, and additional recommendations forthcoming I have personally seen and examined the patient, performed the documentation and the assessment and plan as written. Number of minutes spent on the visit:20 Time with Patient: Greater than 30
[2024-01-17] MEDS: SYMBICORT 160-4.5 MCG INHALER INHALATION SCH (08:03)
[2024-01-17] MEDS: IPRATROPIUM-ALBUTEROL 3 ML NEB INHALATION SCH (08:03)
[2024-01-17 08:18] LABS: ABG Base Excess 6.7 mmol/L; ABG HCO3 34 mmol/L (21-25); ABG Oxygen Saturation 91.2 % (94-97); ABG PCO2 59 mmHg (35-45); ABG PH 7.36 (7.35-7.45); ABG TCO2 36 mmol/L (19-24); Allen Test Performed? Yes
[2024-01-17 08:21] LABS: ABG PO2 59 mmHg (83-108)
[2024-01-17] MEDS: predniSONE 20 MG TAB PO SCH (09:56)
[2024-01-17] MEDS: MULTIVITAMINS, THERA 1 EACH TAB PO SCH (09:56)
[2024-01-17] MEDS: AZITHROMYCIN 500 MG TAB PO SCH (09:56)
[2024-01-17] MEDS: THIAMINE 100 MG TAB PO SCH (09:56)
--- NOTE | 2024-01-17 10:38 | P.GSCN ---
History of Present Illness Consult date: 01/17/24 Reason for Consult: Recurrent right-sided pneumothorax Requesting physician: Barry Barone History of present illness: This is a 74-year-old female patient follows on an outpatient basis with Dr. Janel Bailey for primary care. She has a previous medical history of right-sided pneumothorax in April 2022, chronic hypoxemic respiratory failure on home oxygen, COPD, tobacco dependence, hypertension, frequent falls, depression. She has had multiple admissions/ER visits for COPD exacerbation, her last admission was at the end of November and she was discharged to [facility]. She was brought into the emergency room at [facility] again this time with significant shortness of breath. Upon arrival to the emergency room she was found to be slightly confused and in respiratory distress. Chest x-ray was completed in the emergency room demonstrating COPD along with a right basilar pneumothorax. A right-sided thoravent was placed by the emergency room physician with almost complete reexpansion of the lung demonstrated on follow-up chest x-ray. Lab work revealed WBC 7.2, troponin negative, proBNP 207, lactic acid 1.6, and arterial blood gas demonstrated pH 7.36, pCO2 59, pO2 59, bicarb 34 with oxygen saturation 91% and base excess 6.7. The patient was admitted for evaluation and treatment with consultation placed to pulmonology as well as cardiothoracic surgery for management of pneumothorax. Review of Systems Review of symptoms was attempted but likely incomplete as the patient is not a good historian - Respiratory Reports as per HPI, Reports dyspnea Past Medical History Past Medical History: COPD, Hypertension, Respiratory Disorder Additional Past Medical History / Comment(s): [place]; right-sided pneumothorax in April 2022; recurrent right-sided pneumothorax December 2023 History of Any Multi-Drug Resistant Organisms: None Reported Past Surgical History: Section Additional Past Surgical History / Comment(s): vain stripping left leg Past Anesthesia/Blood Transfusion Reactions: No Reported Reaction Past Psychological History: Anxiety, Depression Smoking Status: Current every day smoker Past Alcohol Use History: None Reported Past Drug Use History: None Reported - Past Family History Mother Family Medical History: No Reported History Additional Family Medical History / Comment(s): at 80 years old of old age. Father Family Medical History: No Reported History Additional Family Medical History / Comment(s): at 85 years old of old age. Medications and Allergies Home Medications Medication Instructions Recorded Confirmed Type Folic Acid 1 mg PO DAILY #30 tablet 12/25/23 01/17/24 Rx Multivitamins, Thera [Multivitamin] 1 tab PO DAILY #30 tablet 12/25/23 01/17/24 Rx Thiamine [Vitamin B-1] 100 mg PO DAILY #30 tablet 12/25/23 01/17/24 Rx Acetaminophen [Tylenol] 650 mg PO Q6H PRN 01/17/24 01/17/24 History Cholecalciferol [Vitamin D3 (25 50 mcg PO DAILY 01/17/24 01/17/24 History Mcg = 1000 Iu)] Fluticasone Propion/Salmeterol 1 puff INHALATION RT-BID 01/17/24 01/17/24 History [Fluticasone-Salmeterol 250-50] Insulin Lispro See Protocol SQ ACHS 01/17/24 01/17/24 History Ipratropium-Albuterol Nebulize 3 ml INHALATION RT-Q4H 01/17/24 01/17/24 History [Duoneb 0.5 mg-3 mg/3 ml Soln] Allergies Allergy/AdvReac Type Severity Reaction Status Date / Time No Known Allergies Allergy Verified 01/17/24 08:33 Surgical - Exam Vital Signs Temp Pulse Resp BP Pulse Ox 97.4 F L 98 30 H 159/116 93 L 01/17/24 01:09 01/17/24 01:09 01/17/24 01:09 01/17/24 01:09 01/17/24 01:09 CONSTITUTIONAL: Awake and alert, appears somewhat short of breath, no pain, no acute distress, appears frail EYES: Pupils equal, round, reactive to light, normal ocular movement ENT: Moist mucous membranes without oral lesions present; very hard of hearing NECK: No masses, no bruits, trachea midline RESPIRATORY: Lungs sounds diminished bilaterally. Respirations even, slightly labored. Currently on 3 L nasal cannula with oxygen saturation 95%. Weak cough. Right anterior chest wall Thora vent present, connected to continuous wall suction with no airleak present CARDIOVASCULAR: S1, S2 present. Regular rate and rhythm, sinus rhythm on telemetry. Palpable peripheral pulses bilaterally. No edema present GASTROINTESTINAL: Abdomen soft, nontender, nondistended without masses or organomegaly noted. There is no rebound or guarding present. Active bowel sounds present 4 quadrants. GENITOURINARY: Deferred INTEGUMENTARY: Skin is warm and dry NEUROLOGIC: Cranial nerves II through XII intact MUSKULOSKELETAL: Able to move all extremities PSYCHIATRIC: Alert and oriented to person, appears confused Results - Labs 01/17/24 01:20 01/17/24 01:20 Abnormal Lab Results - Last 24 Hours (Table) 01/17/24 01/17/24 01/17/24 Range/Units 01:20 01:20 02:15 PT 9.9 L (10.0-12.5) sec ABG pCO2 (35-45) mmHg ABG pO2 (83-108) mmHg ABG HCO3 (21-25) mmol/L ABG Total CO2 (19-24) mmol/L ABG O2 Saturation (94-97) % VBG pCO2 53 H (37-51) mmHg VBG HCO3 31 H (24-28) mmol/L Carbon Dioxide 31 H (22-30) mmol/L BUN 35 H (7-17) mg/dL Glucose 200 H (74-99) mg/dL 01/17/24 Range/Units 08:03 PT (10.0-12.5) sec ABG pCO2 59 H (35-45) mmHg ABG pO2 59 L* (83-108) mmHg ABG HCO3 34 H (21-25) mmol/L ABG Total CO2 36 H (19-24) mmol/L ABG O2 Saturation 91.2 L (94-97) % VBG pCO2 (37-51) mmHg VBG HCO3 (24-28) mmol/L Carbon Dioxide (22-30) mmol/L BUN (7-17) mg/dL Glucose (74-99) mg/dL Diabetes panel 01/17/24 Range/Units 01:20 Sodium 137 (137-145) mmol/L Potassium 4.1 (3.5-5.1) mmol/L Chloride 99 (98-107) mmol/L Carbon Dioxide 31 H (22-30) mmol/L BUN 35 H (7-17) mg/dL Creatinine 0.67 (0.52-1.04) mg/dL Glucose 200 H (74-99) mg/dL Calcium 9.5 (8.4-10.2) mg/dL AST 28 (14-36) U/L ALT 18 (4-34) U/L Alkaline Phosphatase 93 (38-126) U/L Total Protein 7.3 (6.3-8.2) g/dL Albumin 4.2 (3.5-5.0) g/dL Calcium panel 01/17/24 Range/Units 01:20 Calcium 9.5 (8.4-10.2) mg/dL Albumin 4.2 (3.5-5.0) g/dL Pituitary panel 01/17/24 Range/Units 01:20 Sodium 137 (137-145) mmol/L Potassium 4.1 (3.5-5.1) mmol/L Chloride 99 (98-107) mmol/L Carbon Dioxide 31 H (22-30) mmol/L BUN 35 H (7-17) mg/dL Creatinine 0.67 (0.52-1.04) mg/dL Glucose 200 H (74-99) mg/dL Calcium 9.5 (8.4-10.2) mg/dL Adrenal panel 01/17/24 Range/Units 01:20 Sodium 137 (137-145) mmol/L Potassium 4.1 (3.5-5.1) mmol/L Chloride 99 (98-107) mmol/L Carbon Dioxide 31 H (22-30) mmol/L BUN 35 H (7-17) mg/dL Creatinine 0.67 (0.52-1.04) mg/dL Glucose 200 H (74-99) mg/dL Calcium 9.5 (8.4-10.2) mg/dL Total Bilirubin 0.6 (0.2-1.3) mg/dL AST 28 (14-36) U/L ALT 18 (4-34) U/L Alkaline Phosphatase 93 (38-126) U/L Total Protein 7.3 (6.3-8.2) g/dL Albumin 4.2 (3.5-5.0) g/dL - Imaging Chest x-ray: report reviewed, image reviewed Assessment and Plan Assessment: Spontaneous right-sided pneumothorax, second occurrence, resolved after placement of thoravent History of right-sided pneumothorax in April 2022 Chronic hypoxemic respiratory failure on home oxygen COPD Tobacco dependence Hypertension Frequent falls Depression Plan: The patient was seen and examined at the bedside sitting up in bed on the cardiac stepdown unit. Chart/diagnostics were reviewed with Dr. Bowie. She appears very frail, she is very hard of hearing and not a reliable history [place]. She does state that she does not smoke anymore although cannot give me a timeframe for how long she has abstained, she also admits that she has 2 packs of cigarettes in her refrigerator in case of "meltdown". The patient was strongly encouraged to throw away the cigarettes and quit smoking completely. Right-sided Thora vent is present and connected to atrium with continuous wall suction, no airleak present although patient is not giving a good forceful cough. Chest x-ray was reviewed. Incentive spirometry ordered and encouraged. Wean oxygen as tolerated. Will monitor daily x-rays. Increase activity as tolerated, PT/OT consulted. Medical management of other comorbidities per internal medicine, pulmonology. Thank you for this consult. We will continue to follow along and make further recommendations as appropriate. I have personally seen and examined the patient, performed the documentation and the assessment and plan as written. Number of minutes spent on the visit: 30. Candie Simon, MARYCHUYC
--- NOTE | 2024-01-17 15:50 | P.HPIM ---
History of Present Illness H&P Date: 01/17/24 History of present illness; 74-year-old female presented to the emergency department with shortness of breath. Patient was brought to the emergency department by EMS, who reported they found her in significant distress sitting in the tripod position and tachypneic. Initial chest x-ray upon arriving in the emergency department showed the patient had a right-sided pneumothorax, for which she had a right-sided Thora vent placed. Following which pulmonology was consulted. Patient was found to be unable to give a great history, as a result of her dyspnea as well as elements of possible delirium or possible dementia. Her past medical history is significant for previous traumatic pneumothorax in April 2022, chronic hypoxemic respiratory failure on home oxygen, tobacco dependence and COPD for which she takes fluticasonesalmeterol and DuoNeb. Upon admission to the emergency department her oxygen saturation was 93 on BiPAP and respiratory rate was 30, currently is satting at 96% on 3 L nasal cannula. ABG completed this morning showed pCO2 of 59, pO2 59, HCO3 of 34, ABG O2 saturation of 91.2. Some difficulties in communicating/asking questions to the patient, due to either difficulty hearing or potentially not understanding, as the patient would occasionally answer questions that were not being asked. Patient did know she was in [place], however she was unaware of how she arrived to the hospital or that she had been in the emergency department. Initial lab work done in the ER showed CO2 of 31, BUN of 35 and a glucose of 200. CBC and CMP unremarkable. Troponin less than 0.012. NT proBNP 207. EKG done in the ER showed heart rate of 90, normal sinus rhythm, and possible left atrial enlargement and left ventricular hypertrophy. Initial chest x-ray done in the ER showed a right sided basal pneumothorax, along with trace bilateral pleural effusions and flattening of the diaphragms consistent with COPD. Patient admitted to internal medicine service REVIEW OF SYSTEMS: CONSTITUTIONAL: No fever, no malaise, no fatigue. HEENT: No recent visual problems or hearing problems. Denied any sore throat. CARDIOVASCULAR: No chest pain, orthopnea, PND, no palpitations, no syncope. PULMONARY: No shortness of breath, no cough, no hemoptysis. GASTROINTESTINAL: No diarrhea, no nausea, no vomiting, no abdominal pain. NEUROLOGICAL: No headaches, no weakness, no numbness. HEMATOLOGICAL: Denies any bleeding or petechiae. GENITOURINARY: Denies any burning micturition, frequency, or urgency. MUSCULOSKELETAL/RHEUMATOLOGICAL: Denies any joint pain, swelling, or any muscle pain. ENDOCRINE: Denies any polyuria or polydipsia. The rest of the 14-point review of systems is negative. PHYSICAL EXAMINATION: GENERAL: The patient is alert and oriented x3, very frail and cachectic appearing 74-year-old female, with some signs of distress. HEENT: Pupils are round and equally reacting to light. EOMI. No scleral icterus. No conjunctival pallor. Normocephalic, atraumatic. No pharyngeal erythema. No thyromegaly. CARDIOVASCULAR: S1 and S2 present. No murmurs, rubs, or gallops. PULMONARY: Chest is clear to auscultation, no wheezing or crackles. Right chest Thora vent attached. ABDOMEN: Soft, nontender, nondistended, normoactive bowel sounds. No palpable organomegaly. MUSCULOSKELETAL: No joint swelling or deformity. EXTREMITIES: No cyanosis, clubbing, or pedal edema. NEUROLOGICAL: Gross neurological examination did not reveal any focal deficits. SKIN: No rashes. Assessment and plan 1. Right-sided basal pneumothorax Right-sided Thora vent placed in the emergency department This present and connected to the atrium with continuous wall suction, without airleak Surgery ordered incentive spirometry and encourage use Increase activity as tolerated PT and OT referred by surgery 2. Acute hypoxic respiratory failure due to right-sided pneumothorax On arrival O2 sat 93% and 91.2% on ABG Hypoxia has resolved following resolution of pneumothorax on 3 L nasal cannula She is continuing to receive Symbicort, DuoNeb, Zithromax and prednisone 3. Chronic and ongoing tobacco dependence She continues to smoke and removes her oxygen due so She has been encouraged to stop, however has not been compliant 4. Oxygen dependent COPD/emphysema Uses DuoNeb and fluticasonesalmeterol at home - Per pulmonology note from her stay 1 month ago she is inconsistent in using her medications Remains on 3 L nasal cannula at home Per pulmonology COPD is stable 5. Low BMI Patient's BMI estimated at 17.2 Poor dietary intake recorded, nutritional assessment by dietitian Per dietitian recommendations she will be given Ensure Enlive 3 times daily Monitor vital signs Labs and medication were reviewed. Continue with symptomatic treatment. Resume home medication. Monitor labs and vitals. DVT and GI prophylaxis. Further recommendations as per clinical course of the patient Dictation was produced using [employer] dictation software. please excuse any grammatical, word or spelling errors. Past Medical History Past Medical History: COPD, Hypertension Additional Past Medical History / Comment(s): [place] History of Any Multi-Drug Resistant Organisms: None Reported Past Surgical History: Section Additional Past Surgical History / Comment(s): vain stripping left leg Past Anesthesia/Blood Transfusion Reactions: No Reported Reaction Past Psychological History: Anxiety, Depression Smoking Status: Current every day smoker Past Alcohol Use History: None Reported Past Drug Use History: None Reported - Past Family History Mother Family Medical History: No Reported History Additional Family Medical History / Comment(s): at 80 years old of old age. Father Family Medical History: No Reported History Additional Family Medical History / Comment(s): at 85 years old of old age. Medications and Allergies Home Medications Medication Instructions Recorded Confirmed Type Folic Acid 1 mg PO DAILY #30 tablet 12/25/23 01/17/24 Rx Multivitamins, Thera [Multivitamin] 1 tab PO DAILY #30 tablet 12/25/23 01/17/24 Rx Thiamine [Vitamin B-1] 100 mg PO DAILY #30 tablet 12/25/23 01/17/24 Rx Acetaminophen [Tylenol] 650 mg PO Q6H PRN 01/17/24 01/17/24 History Cholecalciferol [Vitamin D3 (25 50 mcg PO DAILY 01/17/24 01/17/24 History Mcg = 1000 Iu)] Fluticasone Propion/Salmeterol 1 puff INHALATION RT-BID 01/17/24 01/17/24 History [Fluticasone-Salmeterol 250-50] Insulin Lispro See Protocol SQ ACHS 01/17/24 01/17/24 History Ipratropium-Albuterol Nebulize 3 ml INHALATION RT-Q4H 01/17/24 01/17/24 History [Duoneb 0.5 mg-3 mg/3 ml Soln] Allergies Allergy/AdvReac Type Severity Reaction Status Date / Time No Known Allergies Allergy Verified 01/17/24 08:33 Physical Exam Vitals: Vital Signs Temp Pulse Resp BP Pulse Ox FiO2 01/17/24 08:13 68 01/17/24 08:06 97.6 F 67 18 138/72 95 01/17/24 08:03 68 93 L 01/17/24 07:13 68 20 98 01/17/24 06:00 71 20 137/70 90 L 01/17/24 05:25 45 01/17/24 04:00 73 20 127/77 99 01/17/24 03:20 63 18 132/78 100 01/17/24 01:19 45 01/17/24 01:09 97.4 F L 98 30 H 159/116 93 L Intake and Output 01/16/24 01/17/24 01/17/24 22:59 06:59 14:59 Other: Weight 45.359 kg Results CBC & Chem 7: 01/17/24 01:20 01/17/24 01:20 Labs: Abnormal Lab Results - Last 24 Hours (Table) 01/17/24 01/17/24 01/17/24 Range/Units 01:20 01:20 02:15 PT 9.9 L (10.0-12.5) sec ABG pCO2 (35-45) mmHg ABG pO2 (83-108) mmHg ABG HCO3 (21-25) mmol/L ABG Total CO2 (19-24) mmol/L ABG O2 Saturation (94-97) % VBG pCO2 53 H (37-51) mmHg VBG HCO3 31 H (24-28) mmol/L Carbon Dioxide 31 H (22-30) mmol/L BUN 35 H (7-17) mg/dL Glucose 200 H (74-99) mg/dL 01/17/24 Range/Units 08:03 PT (10.0-12.5) sec ABG pCO2 59 H (35-45) mmHg ABG pO2 59 L* (83-108) mmHg ABG HCO3 34 H (21-25) mmol/L ABG Total CO2 36 H (19-24) mmol/L ABG O2 Saturation 91.2 L (94-97) % VBG pCO2 (37-51) mmHg VBG HCO3 (24-28) mmol/L Carbon Dioxide (22-30) mmol/L BUN (7-17) mg/dL Glucose (74-99) mg/dL
[2024-01-17 20:07] LABS: Glucose,Whole Blood 281 mg/dL (70-110)
[2024-01-17] MEDS: ALPRAZolam 0.25 MG TAB PO STA (20:51)
[2024-01-17] MEDS: FUROSEMIDE 10 MG/ML 4 ML VIAL IV STA (20:51)
--- NOTE | 2024-01-17 21:29 | XR ---
EXAMINATION TYPE: XR chest 1V portable DATE OF EXAM: 01/17/2024 8:22 PM CLINICAL INDICATION:Female, 74 years old with history of respiratory distress COMPARISON: Chest radiograph from the same day TECHNIQUE: XR chest 1V portable Frontal view of the chest. FINDINGS: Lungs/Pleura: There is mild interval increase in size of previously described right basilar pneumotho rax. Similar trace bilateral pleural effusions. Diaphragms are again noted to be flattened and the bethany ngs are hyperinflated. Pulmonary vascularity: Stable. Heart/mediastinum: Cardiomediastinal silhouette is stable. Musculoskeletal: No acute osseous pathology. Other findings: Development of notable subcutaneous emphysema within the right chest wall and right a xillary soft tissues. Lines/Tubes: Similar position of the thoravent catheter overlying the right hemithorax. IMPRESSION: 1. Mild interval increase in previously described right basilar pneumothorax. Mediastinum is stable. 2. Interval development of notable subcutaneous emphysema along the right chest wall and axilla. 3. Emphysematous lungs. Findings communicated to LEANDRA Dudley on 01/17/2024 9:[address] Buzz Guo.
--- NOTE | 2024-01-17 22:16 | XR ---
EXAMINATION TYPE: XR chest 1V portable DATE OF EXAM: 01/17/2024 CLINICAL HISTORY: Right-sided pneumothorax. TECHNIQUE: Single AP portable upright view of the chest is obtained. COMPARISON: Chest x-ray from earlier today FINDINGS: Persistent right-sided chest tube with small right lateral pneumothorax and extensive over lying subcutaneous emphysema which shows continued worsening. Stable mediastinal shift to the left. B ackground underlying emphysematous change redemonstrated. Cardiac silhouette size is stable and withi n normal limits. Osseous structures are intact. IMPRESSION: Continued worsening extensive overlying right-sided subcutaneous emphysema. Small right l ateral pneumothorax remains present despite chest tube placement and grossly stable in size. Chronic emphysematous change with left-sided mediastinal shift redemonstrated and stable.
[2024-01-18 03:21] LABS: Glucose,Whole Blood 150 mg/dL (70-110)
[2024-01-18] MEDS: IPRATROPIUM-ALBUTEROL 3 ML NEB INHALATION PRN (03:48)
--- NOTE | 2024-01-18 04:58 | XR ---
EXAMINATION TYPE: XR chest 1V portable DATE OF EXAM: 01/18/2024 CLINICAL HISTORY: Difficulty breathing progress study. Hypoxia. TECHNIQUE: Single AP portable upright view of the chest is obtained. COMPARISON: Chest x-ray from one day earlier FINDINGS: Persistent moderate right lateral pneumothorax despite chest tube placement. Persistent ex tensive overlying subcutaneous emphysema extending into the left neck now currently. Persistent media stinal shift and background chronic emphysematous change. Left lung remains grossly clear. Increasing right lung opacity inferiorly is noted. Cardiac silhouette size stable and within normal limits. The re is suggestion of new pneumomediastinum. Osseous structures are intact. IMPRESSION: Continued worsening subcutaneous emphysema suggests air leak. Moderate size right lateral pneumothorax despite chest tube is stable from most recent study. Worsening right lower lung edema a nd/or atelectasis is suspected. Stable left-sided mediastinal shift. Possible new pneumomediastinum b ut this it is favored product of worsening overlying subcutaneous emphysema.
[2024-01-18 07:13] LABS: Appearance,Urine Turbid (Clear); Bacteria,Urine Many /hpf; Bilirubin,Urine Negative (Negative); Blood,Urine Small (Negative); Color,Urine Light Yellow; Glucose,Urine (UA) Trace (Negative); Hyaline Casts,Urine 160 /lpf (0-2); Ketones,Urine Trace (Negative); Leukocyte Esterase,Urine Large (Negative); Mucus,Urine Moderate /hpf; Nitrite,Urine Positive (Negative); PH, Urine 5.5 (5.0-8.0); Protein,Urine Trace (Negative); RBC,Urine 59 /hpf (0-5); Specific Gravity,Urine 1.013 (1.001-1.035); Squamous Epithelial Cell,Urine 6 /hpf (0-4); Urobilinogen,Urine <2.0 mg/dL (<2.0); WBC,Urine >182 /hpf (0-5)
[2024-01-18] MEDS: LIDOCAINE 2% (PF) 20 MG/ML 5 ML VIAL ONE ×2 (07:30)
[2024-01-18 07:58] LABS: HCT 41.6 % (34.0-46.0); HGB 12.9 gm/dL (11.4-16.0); Hypochromasia Marked; MCH 29.2 pg (25.0-35.0); MCHC 31.1 g/dL (31.0-37.0); MCV 93.8 fL (80.0-100.0); Mean Platelet Volume 6.8; Platelet Count 318 k/uL (150-450); RBC 4.43 m/uL (3.80-5.40); RDW 15.4 % (11.5-15.5); WBC 11.8 k/uL (3.8-10.6)
[2024-01-18 08:09] LABS: African American GFR (CKD) 73 (>60 ml/min/1.73 sqM); Anion Gap 4 mmol/L; Blood Urea Nitrogen 46 mg/dL (7-17); Calcium 9.6 mg/dL (8.4-10.2); Carbon Dioxide 33 mmol/L (22-30); Chloride 102 mmol/L (98-107); Glucose 125 mg/dL (74-99); Non-African American GFR(CKD) 63 (>60 ml/min/1.73 sqM); Potassium 3.8 mmol/L (3.5-5.1); Sodium 139 mmol/L (137-145)
[2024-01-18] MEDS: HYDROmorphone 1 MG/ML 1 ML SYRINGE IVP STA (08:30)
--- NOTE | 2024-01-18 09:07 | P.PN ---
Subjective Progress Note Date: 01/18/24 Principal diagnosis: Spontaneous right-sided pneumothorax, second occurrence, status post placement of thoravent. History of right-sided pneumothorax in April 2022, chronic hypo xemic respiratory failure on home oxygen, COPD, tobacco dependence, hypertension, frequent falls, depression Acute hypoxic respiratory failure secondary to increased right sided pneumothorax with significant subcutaneous emphysema, status post right thoracostomy tube placement by Dr. Rincon The patient was seen and examined this morning sitting up in bed in the ICU where she was transferred last night due to significant subcutaneous emphysema. She was placed on AirVo high flow nasal cannula from NRB. Right thoracostomy tube was placed by Dr. Rincon with re-expansion of the right lung and decrease in subcutaneous emphysema. The patient was seen yesterday by Dr. Bowie who is recommending conservative treatment due to patient's age, frailty, continued smoking, and very poor lungs with the possibility of not being able to get her off the ventilator. Remains in sinus rhythm, otherwise hemodynamically stable. Objective - Vital Signs Vital signs: Vital Signs Temp 97.3 F L 01/18/24 04:00 Pulse 108 H 01/18/24 08:18 Resp 28 H 01/18/24 07:00 BP 174/98 01/18/24 07:00 Pulse Ox 100 01/18/24 07:49 FiO2 90 01/18/24 07:49 Intake & Output 01/17/24 01/18/24 01/18/24 18:59 06:59 18:59 Intake Total 240 540 Output Total 50 Balance 240 490 Weight 45.359 kg Intake: Oral 240 540 Output: Urine 50 Other: Voiding Method Diaper External Catheter # Voids 3 1 - Exam CONSTITUTIONAL: Awake and alert, appears short of breath, no pain, no acute distress, appears very frail RESPIRATORY: Lungs sounds diminished on the right. Respirations even, slightly labored. Currently on Air-Vo, 55LPM, 90% FiO2 with NRB with oxygen saturation 100%. Weak cough. Right anterior chest wall Thora vent removed, right thoracostomy tube connected to continuous wall suction with continuous airleak present CARDIOVASCULAR: S1, S2 present. Regular rate and rhythm, sinus rhythm on telemetry. Palpable peripheral pulses bilaterally. No edema present GASTROINTESTINAL: Abdomen soft, nontender, nondistended without masses or organomegaly noted. There is no rebound or guarding present. Active bowel sounds present 4 quadrants. GENITOURINARY: Carvajal present draining clear yellow urine INTEGUMENTARY: Skin is warm and dry NEUROLOGIC: Cranial nerves II through XII intact MUSKULOSKELETAL: Able to move all extremities PSYCHIATRIC: Alert and oriented to person, appears confused - Allied health notes Allied health notes reviewed: nursing - Labs CBC & Chem 7: 01/18/24 07:21 01/18/24 07:21 Labs: Abnormal Lab Results - Last 24 Hours (Table) 01/17/24 01/18/24 01/18/24 Range/Units 20:05 03:19 06:05 WBC (3.8-10.6) k/uL Carbon Dioxide (22-30) mmol/L BUN (7-17) mg/dL Glucose (74-99) mg/dL POC Glucose (mg/dL) 281 H 150 H (70-110) mg/dL Urine Appearance Turbid H (Clear) Urine Protein Trace H (Negative) Urine Glucose (UA) Trace H (Negative) Urine Ketones Trace H (Negative) Urine Blood Small H (Negative) Urine Nitrite Positive H (Negative) Ur Leukocyte Esterase Large H (Negative) Urine RBC 59 H (0-5) /hpf Urine WBC >182 H (0-5) /hpf Urine WBC Clumps Many H (None) /hpf Ur Squamous Epith Cells 6 H (0-4) /hpf Urine Bacteria Many H (None) /hpf Hyaline Casts 160 H (0-2) /lpf Urine Mucus Moderate H (None) /hpf 01/18/24 01/18/24 Range/Units 07:21 07:21 WBC 11.8 H (3.8-10.6) k/uL Carbon Dioxide 33 H (22-30) mmol/L BUN 46 H (7-17) mg/dL Glucose 125 H (74-99) mg/dL POC Glucose (mg/dL) (70-110) mg/dL Urine Appearance (Clear) Urine Protein (Negative) Urine Glucose (UA) (Negative) Urine Ketones (Negative) Urine Blood (Negative) Urine Nitrite (Negative) Ur Leukocyte Esterase (Negative) Urine RBC (0-5) /hpf Urine WBC (0-5) /hpf Urine WBC Clumps (None) /hpf Ur Squamous Epith Cells (0-4) /hpf Urine Bacteria (None) /hpf Hyaline Casts (0-2) /lpf Urine Mucus (None) /hpf - Imaging and Cardiology Chest x-ray: report reviewed, image reviewed Assessment and Plan Assessment: Spontaneous right-sided pneumothorax, second occurrence, S/P thoravent by the ER physicians Acute hypoxic respiratory failure secondary to increased right PTX with significant subq emphysema, S/P placement of right thoracostomy tube by Dr. Rincon History of right-sided pneumothorax in April 2022 Chronic hypoxemic respiratory failure on home oxygen COPD Tobacco dependence Hypertension Frequent falls Depression Plan: Continue chest tube to continuous wall suction, monitor for airleak/PTX resolution Conservative management, no surgical intervention planned Wean oxygen as tolerated, encourage incentive spirometry, bronchodilators/steroids per pulmonology Will monitor daily CXR Increase activity as tolerated, PT/OT consulted Medical management of other comorbidities per internal medicine, pulmonology Poor prognosis, consider palliative care
--- NOTE | 2024-01-18 09:22 | XR ---
EXAMINATION TYPE: XR chest 1V portable DATE OF EXAM: 01/18/2024 9:00 AM CLINICAL INDICATION:Female, 74 years old with history of post chest tube insertion; [facility] COMPARISON: Chest radiographs from TECHNIQUE: XR chest 1V portable Frontal view of the chest. FINDINGS: Lungs/Pleura: Prominent interstitial lung markings are seen scattered throughout the lungs with grace ening of the diaphragm and increased lucency of the lung apices. No evidence of focal consolidation, pneumothorax or pleural effusion. Pulmonary vascularity: Unremarkable. Heart/mediastinum: Cardiomediastinal silhouette is unremarkable. Musculoskeletal: No acute osseous pathology. Other findings: Subcutaneous emphysema scattered throughout the visualized thorax. Lines/Tubes: Right thoracotomy tube is present without evidence of pneumothorax. The 2 only enters the chest cavit y approximately 5.7 cm. IMPRESSION: 1. Right thoracotomy tube with subcutaneous gas throughout the thorax subcutaneous tissues. Correlat e for air leak. No evidence for pneumothorax. 2. Emphysema changes.
[2024-01-18] MEDS: SODIUM CHLORIDE 0.9% 1,000 ML IV SCH (10:36)
[2024-01-18] MEDS ORDERED: Potassium Replacement Protocol 1 EACH MISC MISCELLANE PRN (11:21)
--- NOTE | 2024-01-18 16:50 | P.PN ---
Subjective Progress Note Date: 01/18/24 History of present illness; 74-year-old female presented to the emergency department with shortness of breath. Patient was brought to the emergency department by EMS, who reported they found her in significant distress sitting in the tripod position and tachypneic. Initial chest x-ray upon arriving in the emergency department showed the patient had a right-sided pneumothorax, for which she had a right-sided Thora vent placed. Following which pulmonology was consulted. Patient was found to be unable to give a great history, as a result of her dyspnea as well as elements of possible delirium or possible dementia. Her past medical history is significant for previous traumatic pneumothorax in April 2022, chronic hypoxemic respiratory failure on home oxygen, tobacco dependence and COPD for which she takes fluticasonesalmeterol and DuoNeb. Upon admission to the emergency department her oxygen saturation was 93 on BiPAP and respiratory rate was 30, currently is satting at 96% on 3 L nasal cannula. ABG completed this morning showed pCO2 of 59, pO2 59, HCO3 of 34, ABG O2 saturation of 91.2. Some difficulties in communicating/asking questions to the patient, due to either difficulty hearing or potentially not understanding, as the patient would occasionally answer questions that were not being asked. Patient did know she was in [place], however she was unaware of how she arrived to the hospital or that she had been in the emergency department. Initial lab work done in the ER showed CO2 of 31, BUN of 35 and a glucose of 200. CBC and CMP unremarkable. Troponin less than 0.012. NT proBNP 207. EKG done in the ER showed heart rate of 90, normal sinus rhythm, and possible left atrial enlargement and left ventricular hypertrophy. Initial chest x-ray done in the ER showed a right sided basal pneumothorax, along with trace bilateral pleural effusions and flattening of the diaphragms consistent with COPD. 01/17 - Patient seen at bedside in the ICU today, where she was moved early this morning as a result of worsening shortness of breath and increasing oxygen demand due to significant subcutaneous emphysema. She was placed on AirVo high flow nasal canulla and a right thoracostomy tube was placed by Dr. Rincon with re-expansion of the right lung, without evidence of a pneumothorax and subcutaneous emphysema throughout the thorax, per chest X ray this morning follo wing thoracostomy. She was initially placed on AirVo high flow nasal canulla, following use of a non re-breather, where she began at 55 LPM with an FiO2 of 90%, she has been weened to 45 LPM with an FiO2 of 80% as of this afternoon. When visiting bedside patient had just taken a Dilaudid and was resting in bed. Switched from Dilaudid to Toradol for pain control as the result of the grogginess caused on the Dilaudid. Patient had no current complaints. REVIEW OF SYSTEMS: CONSTITUTIONAL: No fever, no malaise. CARDIOVASCULAR: No chest pain, no palpitations, no syncope. PULMONARY: No shortness of breath, no cough. GASTROINTESTINAL: As stated above. GENITOURINARY: Carvajal present draining clear yellow urine. NEUROLOGICAL: No headaches, no weakness, PHYSICAL EXAMINATION: GENERAL: Awake and alert, not in any acute distress. Very frail appearing. HEENT: Pupils are round and equally reacting to light. EOMI. No scleral icterus. No conjunctival pallor. Normocephalic, atraumatic. No pharyngeal erythema. No thyromegaly. CARDIOVASCULAR: S1 and S2 present. No murmurs, rubs, or gallops. PULMONARY: Diminished lung sounds on the right. On AirVo, 45 LPM, 80% FiO2, O2 saturation of 98%. ThoraVent no longer present, right thoracostomy tube connected to continuous suction. ABDOMEN: Soft, nontender, nondistended, normoactive bowel sounds. No palpable organomegaly. MUSCULOSKELETAL: No joint swelling or deformity. EXTREMITIES: No cyanosis, or clubbing. Pedal edema present NEUROLOGICAL: Gross neurological examination did not reveal any focal deficits. Alert and oriented, however appears confused. SKIN: Bilateral lower extremity wounds seen Assessment and plan 1. Right-sided basal pneumothorax Right-sided Thora vent placed in the emergency department This present and connected to the atrium with continuous wall suction, without airleak Surgery ordered incentive spirometry and encourage use Increase activity as tolerated PT and OT referred by surgery 2. Acute hypoxic respiratory failure due to right-sided pneumothorax On arrival O2 sat 93% and 91.2% on ABG Hypoxia has resolved following resolution of pneumothorax on 3 L nasal cannula She is continuing to receive Symbicort, DuoNeb, Zithromax and prednisone - Another episode of hypoxic respiratory failure early on 01/17 lead to admission to ICU where right thoracostomy tube was placed by Dr. Rincon. - Continue chest tube with continuous wall suction - Chest X ray taken after the placement of the thoracostomy tube showed it present, without evidence of a pneumothorax. 3. Chronic and ongoing tobacco dependence She continues to smoke and removes her oxygen due so She has been encouraged to stop, however has not been compliant 4. Oxygen dependent COPD/emphysema Uses DuoNeb and fluticasonesalmeterol at home - Per pulmonology note from her stay 1 month ago she is inconsistent in using her medications Remains on 3 L nasal cannula at home Per pulmonology COPD is stable 5. Low BMI Patient's BMI estimated at 17.2 Poor dietary intake recorded, nutritional assessment by dietitian Per dietitian recommendations she will be given Ensure Enlive 3 times daily Monitor vital signs Monitor oxygen levels Labs and medication were reviewed. Continue with symptomatic treatment. Resume home medication. Monitor labs and vitals. DVT and GI prophylaxis. Further r ecommendations as per clinical course of the patient Dictation was produced using [employer] dictation software. please excuse any grammatical, word or spelling errors. Dr. Gaby MD I have performed a history and physical examination and medical decision making of this patient, discussed the same with the the resident, and agree with the assessment and plan as written. I performed brief physical exam. Objective - Vital Signs Vital signs: Vital Signs Temp 97.3 F L 01/18/24 04:00 Pulse 108 H 01/18/24 08:18 Resp 28 H 01/18/24 07:00 BP 174/98 01/18/24 07:00 Pulse Ox 100 01/18/24 07:49 FiO2 90 01/18/24 07:49 Intake & Output 01/17/24 01/18/24 01/18/24 18:59 06:59 18:59 Intake Total 240 540 Output Total 50 Balance 240 490 Weight 45.359 kg Intake: Oral 240 540 Output: Urine 50 Other: Voiding Method Diaper External Catheter # Voids 3 1 - Labs CBC & Chem 7: 01/19/24 05:23 01/19/24 05:23 Labs: Abnormal Lab Results - Last 24 Hours (Table) 01/17/24 01/18/24 01/18/24 Range/Units 20:05 03:19 06:05 WBC (3.8-10.6) k/uL Carbon Dioxide (22-30) mmol/L BUN (7-17) mg/dL Glucose (74-99) mg/dL POC Glucose (mg/dL) 281 H 150 H (70-110) mg/dL Urine Appearance Turbid H (Clear) Urine Protein Trace H (Negative) Urine Glucose (UA) Trace H (Negative) Urine Ketones Trace H (Negative) Urine Blood Small H (Negative) Urine Nitrite Positive H (Negative) Ur Leukocyte Esterase Large H (Negative) Urine RBC 59 H (0-5) /hpf Urine WBC >182 H (0-5) /hpf Urine WBC Clumps Many H (None) /hpf Ur Squamous Epith Cells 6 H (0-4) /hpf Urine Bacteria Many H (None) /hpf Hyaline Casts 160 H (0-2) /lpf Urine Mucus Moderate H (None) /hpf 01/18/24 01/18/24 Range/Units 07:21 07:21 WBC 11.8 H (3.8-10.6) k/uL Carbon Dioxide 33 H (22-30) mmol/L BUN 46 H (7-17) mg/dL Glucose 125 H (74-99) mg/dL POC Glucose (mg/dL) (70-110) mg/dL Urine Appearance (Clear) Urine Protein (Negative) Urine Glucose (UA) (Negative) Urine Ketones (Negative) Urine Blood (Negative) Urine Nitrite (Negative) Ur Leukocyte Esterase (Negative) Urine RBC (0-5) /hpf Urine WBC (0-5) /hpf Urine WBC Clumps (None) /hpf Ur Squamous Epith Cells (0-4) /hpf Urine Bacteria (None) /hpf Hyaline Casts (0-2) /lpf Urine Mucus (None) /hpf
[2024-01-18] MEDS: POTASSIUM BICARBONATE/CIT AC 20 MEQ TABLET.EFF NG-TUBE SCH (16:58)
[2024-01-18] MEDS: KETOROLAC 15 MG/ML 1 ML VIAL IVP SCH (16:59)
--- NOTE | 2024-01-18 17:04 | PCN ---
PROCEDURE NOTE PULMONARY/CRITICAL CARE PROCEDURE: PROCEDURE PERFORMED: A right-sided chest tube/tube thoracostomy. PREOPERATIVE DIAGNOSIS: Worsening right pneumothorax. POSTOPERATIVE DIAGNOSIS: Worsening right pneumothorax. ROTOR ASSEMBLER: Dr. Rincon. FIRST SURGICAL ASSISTANTS: Candie Simon and Veronica Conde. DESCRIPTION OF PROCEDURE: The patient's procedure was done at the bedside. There was informed consent. The patient's room #254. There was IC for the area where the chest tube was to be inserted, cleansed with chlorhexidine. It was sterilely draped. Then, a small 1-inch incision was made transversely, horizontal to the ribs, at the 5th intercostal space and between the anterior and mid axillary line. Next, the area was then infiltrated with lidocaine, and then, prior to the incision, the area was and infiltrated with lidocaine as an anesthetic. Then the incision was made as mentioned above. Next, a pair of blunt forceps were used to dissect down into the between ribs. The blunt forceps were used to puncture into the pleural space. There was a whoosh of air. The 20-Arabic chest tube was inserted without difficulty. It was sutured into place. There was a sterile dressing was applied by the nurse. There was no immediate complication. The patient tolerated the procedure well without difficulty. A chest x- ray was ordered. The chest x-ray. The abscess in the chest tube was placed to suction. The Thora-Vent will be removed. MMODL / IJN: [id number] /
[2024-01-18] MEDS: ALPRAZolam 0.25 MG TAB PO PRN (23:40)
[2024-01-19] MEDS: FUROSEMIDE 10 MG/ML 2 ML VIAL IV ONE (03:36)
--- NOTE | 2024-01-19 04:55 | PN ---
PROGRESS NOTE SUBJECTIVE: This is a 74-year-old female with a history of end-stage COPD/emphysema. The patient also suffers from chronic hypoxemic respiratory failure, and chronic ongoing tobacco dependence. The patient has had a previous traumatic pneumothorax in the past. She was admitted with a COPD exacerbation, and was found to have a right-sided pneumothorax. A Thora-Vent was placed in the emergency department by the ER physician. Last night, the pneumothorax got worse, and her subcutaneous emphysema worsened, and she was transferred to the intensive care unit. This morning, I placed a 28-Swiss chest tube on the right side. She had blood gases done showing a pO2 of 59, pCO2 of 59, pH of 7.36. The patient was on both AIRVO at 55 L/minute and FiO2 of 90%, as well as a non-rebreather mask. She was not receiving any IV fluids. LABORATORY: Reviewed. White count 11.8, hemoglobin 12.9, hematocrit 41.6, and platelet count 318,000. Sodium 139, potassium 3.8, chloride 102, CO2 33, BUN 46, and creatinine 0.89. Urinalysis suggested a urinary tract infection. Her nitrite and leukocyte esterase were both positive. There were many white blood cells and white blood cell clumps, and many bacteria. The patient is post chest tube. Chest x-ray showed no evidence of pneumothorax, but did show evidence of subcutaneous emphysema. ASSESSMENT: 1. Recurrent right-sided pneumothorax, status post Thora-Vent placement, and subsequent 28-Swiss chest tube. 2. Acute hypoxemic respiratory failure. 3. Ongoing tobacco use with nicotine addiction. 4. Mental status changes. 5. History of traumatic right-sided pneumothorax in 2021. 6. History of COPD/emphysema. 7. History of falls. 8. History of medication noncompliance. 9. History of hypertension. PLAN: The patient was transferred down to the intensive care unit last night. The patient's right-sided pneumothorax got worse. She developed significant subcutaneous emphysema. I put a 28-Swiss chest tube in today. It was done at the bedside. It was done in room 254. Post chest tube chest x-ray looked excellent. There was no pneumothorax. There was subcutaneous emphysema. The patient will be given Rocephin for suspected urinary tract infection. Prognosis is guarded. No additional recommendations are made. We will continue to follow. MMODL / IJN: [id number] /
[2024-01-19 05:58] LABS: Basophils % (A) 0 %; Eosinophils % (A) 0 %; HCT 35.7 % (34.0-46.0); HGB 11.1 gm/dL (11.4-16.0); Hypochromasia Marked; Lymphocytes # (A) 0.4 k/uL (1.0-4.8); Lymphocytes % (A) 6 %; MCV 93.5 fL (80.0-100.0); Mean Platelet Volume 7.3; Monocytes # (A) 0.2 k/uL (0-1.0); Monocytes % (A) 3 %; Neutrophils # (A) 6.1 k/uL (1.3-7.7); Neutrophils % (A) 91 %; Platelet Count 275 k/uL (150-450); RBC 3.81 m/uL (3.80-5.40); RDW 15.3 % (11.5-15.5); WBC 6.7 k/uL (3.8-10.6)
[2024-01-19 06:06] LABS: African American GFR (CKD) >90 (>60 ml/min/1.73 sqM); Anion Gap 4 mmol/L; Blood Urea Nitrogen 44 mg/dL (7-17); Calcium 8.7 mg/dL (8.4-10.2); Carbon Dioxide 29 mmol/L (22-30); Chloride 107 mmol/L (98-107); Glucose 123 mg/dL (74-99); Non-African American GFR(CKD) 85 (>60 ml/min/1.73 sqM); Potassium 4.5 mmol/L (3.5-5.1); Sodium 140 mmol/L (137-145)
--- NOTE | 2024-01-19 06:57 | XR ---
EXAMINATION TYPE: XR chest 1V portable DATE OF EXAM: 01/19/2024 4:54 AM CLINICAL INDICATION:Female, 74 years old with history of pneumothorax; [facility] COMPARISON: Chest radiograph from one day prior. TECHNIQUE: XR chest 1V portable Frontal view of the chest. FINDINGS: Lungs/Pleura: Prominent interstitial lung markings are seen scattered throughout the lungs with grace ening of the diaphragm and increased lucency of the lung apices. No evidence of focal consolidation, pneumothorax or pleural effusion. Pulmonary vascularity: Unremarkable. Heart/mediastinum: Cardiomediastinal silhouette is unremarkable. Atherosclerotic calcifications are seen in the aorta. Musculoskeletal: No acute osseous pathology. Other findings: Subcutaneous emphysema scattered throughout the visualized thorax. Lines/Tubes: Right thoracotomy tube is present without evidence of pneumothorax. The 2 only enters the chest cavit y approximately 5.7 cm. IMPRESSION: 1. Similar Right thoracotomy tube with subcutaneous gas throughout the thorax subcutaneous tissues. No evidence for pneumothorax. 2. Emphysema changes.
--- NOTE | 2024-01-19 08:35 | P.PN ---
Subjective Progress Note Date: 01/19/24 Principal diagnosis: Spontaneous right-sided pneumothorax, second occurrence, status post placement of thoravent. History of right-sided pneumothorax in April 2022, chronic hypo xemic respiratory failure on home oxygen, COPD, tobacco dependence, hypertension, frequent falls, depression Acute hypoxic respiratory failure secondary to increased right sided pneumothorax with significant subcutaneous emphysema, status post right thoracostomy tube placement by Dr. Rincon The patient was seen and examined this morning sitting up in bed in the ICU in no acute distress. She does remain on Airvo but no nonrebreather, oxygen saturation in the high 90s. She appears comfortable. Her visible subcutaneous emphysema has improved significantly. Right-sided chest tube remains to c ontinuous wall suction, no air leak present this morning although the patient is not able to give a significant cough. Chest x-ray reviewed, no pneumothorax present although subcutaneous emphysema still apparent. Remains in sinus rhythm, otherwise hemodynamically stable. Objective - Vital Signs Vital signs: Vital Signs Temp 97.7 F 01/19/24 04:00 Pulse 77 01/19/24 08:00 Resp 20 01/19/24 08:00 BP 127/59 01/19/24 08:00 Pulse Ox 100 01/19/24 08:00 FiO2 55 01/19/24 07:26 Intake & Output 01/18/24 01/19/24 01/19/24 18:59 06:59 18:59 Intake Total 725 1000 75 Output Total 267 859 175 Balance 458 141 -100 Weight 46.2 kg Intake: IV 725 900 75 Sodium Chloride 0.9% 1, 675 900 75 000 ml @ 75 mls/hr IV . [id number] JOCELYN Rx#:[id number] cefTRIAXone 1 gm In 50 Sodium Chloride 0.9% 50 ml @ 100 mls/hr IVPB Q24HR JOCELYN Rx#:[id number] Oral 100 Output: Urine 267 859 175 Other: Voiding Method Indwelling Catheter Indwelling Catheter - Exam CONSTITUTIONAL: Awake and alert, no pain, no acute distress, appears very frail RESPIRATORY: Lungs sounds diminished bilaterally. Respirations even, slightly labored. Currently on Air-Vo, 40LPM, 55% FiO2 with oxygen saturation 99%. Weak cough. Right anterior thoracostomy tube present and connected to continuous wall suction with no airleak this morning CARDIOVASCULAR: S1, S2 present. Regular rate and rhythm, sinus rhythm on tele metry. Palpable peripheral pulses bilaterally. No edema present GASTROINTESTINAL: Abdomen soft, nontender, nondistended without masses or organomegaly noted. There is no rebound or guarding present. Active bowel sounds present 4 quadrants. GENITOURINARY: Carvajal present draining clear yellow urine INTEGUMENTARY: Skin is warm and dry NEUROLOGIC: Cranial nerves II through XII intact MUSKULOSKELETAL: Able to move all extremities PSYCHIATRIC: Alert and oriented to person, appears confused - Allied health notes Allied health notes reviewed: nursing - Labs CBC & Chem 7: 01/19/24 05:23 01/19/24 05:23 Labs: Abnormal Lab Results - Last 24 Hours (Table) 01/19/24 01/19/24 Range/Units 05:23 05:23 Hgb 11.1 L (11.4-16.0) gm/dL Lymphocytes # 0.4 L (1.0-4.8) k/uL BUN 44 H (7-17) mg/dL Glucose 123 H (74-99) mg/dL - Imaging and Cardiology Chest x-ray: report reviewed, image reviewed Assessment and Plan Assessment: Spontaneous right-sided pneumothorax, second occurrence, S/P thoravent by the ER physicians Acute hypoxic respiratory failure secondary to increased right PTX with significant subq emphysema, S/P placement of right thoracostomy tube by Dr. Rincon History of right-sided pneumothorax in April 2022 Chronic hypoxemic respiratory failure on home oxygen COPD Tobacco dependence Hypertension Frequent falls Depression Plan: Continue chest tube to continuous wall suction, monitor for airleak Conservative management, no surgical intervention planned Wean oxygen as tolerated, encourage incentive spirometry, bronchodilators/st eroids per pulmonology Will monitor daily CXR Increase activity as tolerated, PT/OT consulted Medical management of other comorbidities per internal medicine, pulmonology Poor prognosis, consider palliative care
[2024-01-19] MEDS: PANTOPRAZOLE 40 MG/10 ML VIAL IVP SCH (09:04)
--- NOTE | 2024-01-19 10:10 | P.PN ---
Subjective Progress Note Date: 01/19/24 Principal diagnosis: Shortness of breath. Progress note dated January 19, 2024. 74-year-old female who was initially seen in consultation on January 16. She had a follow-up with no yesterday. Yesterday, because of a recurrent and more significant right-sided pneumothorax, a chest tube was placed. A 28 Kyrgyz chest tube was placed on the right side without difficulty. Currently, she is on Airvo, at 40 L/min with an FiO2 55%. She is getting saline at 75 cc an hour. The chest tube was noted to be in proper position on chest x-ray. There is no leak noted. The chest tube remains on suction. Cardiothoracic surgery is following the patient also. Current laboratory includes a white count 6.7, hemoglobin 11.1, hematocrit 35.7, and a normal platelet count. Sodium 140, pota ssium 4.5, chlorides 107, CO2 29, BUN 44, creatinine 0.69. Glucose is 123. Calcium 8.7. Urine is showing gram-negative bacilli. It has yet to be identified. The patient continues on Rocephin. Other important medications include Symbicort, and DuoNeb, as well as prednisone 40 mg. Objective - Vital Signs Vital signs: Vital Signs Temp 97.3 F L 01/19/24 09:00 Pulse 84 01/19/24 09:00 Resp 19 01/19/24 09:00 BP 136/65 01/19/24 09:00 Pulse Ox 95 01/19/24 09:00 FiO2 55 01/19/24 09:00 Intake & Output 01/18/24 01/19/24 01/19/24 18:59 06:59 18:59 Intake Total 725 1000 275 Output Total 267 859 250 Balance 458 141 25 Weight 46.2 kg Intake: IV 725 900 275 Sodium Chloride 0.9% 1, 675 900 225 000 ml @ 75 mls/hr IV . [id number] [facility] Rx#:[id number] cefTRIAXone 1 gm In 50 50 Sodium Chloride 0.9% 50 ml @ 100 mls/hr IVPB Q24HR [facility] Rx#:[id number] Oral 100 Output: Urine 267 859 250 Other: Voiding Method Indwelling Catheter Indwelling Catheter - Exam No acute distress, oriented 3. Currently on Airvo. No respiratory distress. HEENT examination is grossly unremarkable. Mucous membranes are moist. No oral lesions. Neck supple. Full range of motion. No adenopathy thyromegaly or neck vein distention. Cardiovascular examination reveals regular rhythm rate. S1-S2 normal. No S3 or S4. No discernible murmur noted. Heart sounds are distant. Heart rate 80 bpm. Lungs reveal diminished breath sounds throughout. Few scattered rhonchi. No wheezes or crackles. The patient has significant subcutaneous emphysema, which is unchanged, or slightly improved. Abdomen soft bowel sounds are heard. No masses or tenderness. Extremities are intact. No cyanosis clubbing or edema. Skin is without rash or lesion. Neurologic examination is brief but nonfocal. - Labs CBC & Chem 7: 01/19/24 05:23 01/19/24 05:23 Labs: Abnormal Lab Results - Last 24 Hours (Table) 01/19/24 01/19/24 Range/Units 05:23 05:23 Hgb 11.1 L (11.4-16.0) gm/dL Lymphocytes # 0.4 L (1.0-4.8) k/uL BUN 44 H (7-17) mg/dL Glucose 123 H (74-99) mg/dL Microbiology - Last 24 Hours (Table) 01/18/24 06:05 Urine Culture - Preliminary Urine,Catheterized Gram Neg Bacilli Assessment and Plan Assessment: Acute right-sided pneumothorax, initially treated with a Thora vent device, and now a 28 Kyrgyz chest tube. Acute hypoxemic respiratory failure secondary to COPD and right pneumothorax. Mental status changes, improved. History of traumatic right-sided pneumothorax 2021. History of severe emphysema. Ongoing tobacco use with nicotine addiction. History of falls. History of medication noncompliance. Hypertension. Plan: Plan dated January 19, 2024. The patient appears to be doing better. The patient is a bit more awake and alert. The patient's right chest tube is in good position. There is no obvious pneumothorax. There is subcutaneous emphysema, which is improved. She has been weaned down on the Airvo, to 40 L/min with an FiO2 of 55%. She is getting saline at 75 cc an hour. Labs, x-rays, and all medications are reviewed. She is appropriately on DuoNeb, Symbicort, and prednisone. We will continue to follow make recommendations along the way. Time with Patient: Greater than 30
--- NOTE | 2024-01-19 11:08 | P.PN ---
Subjective Progress Note Date: 01/19/24 History of present illness; 74-year-old female presented to the emergency department with shortness of breath. Patient was brought to the emergency department by EMS, who reported they found her in significant distress sitting in the tripod position and tachypneic. Initial chest x-ray upon arriving in the emergency department showed the patient had a right-sided pneumothorax, for which she had a right-sided Thora vent placed. Following which pulmonology was consulted. Patient was found to be unable to give a great history, as a result of her dyspnea as well as elements of possible delirium or possible dementia. Her past medical history is significant for previous traumatic pneumothorax in April 2022, chronic hypoxemic respiratory failure on home oxygen, tobacco dependence and COPD for which she takes fluticasonesalmeterol and DuoNeb. Upon admission to the emergency department her oxygen saturation was 93 on BiPAP and respiratory rate was 30, currently is satting at 96% on 3 L nasal cannula. ABG completed this morning showed pCO2 of 59, pO2 59, HCO3 of 34, ABG O2 saturation of 91.2. Some difficulties in communicating/asking questions to the patient, due to either difficulty hearing or potentially not understanding, as the patient would occasionally answer questions that were not being asked. Patient did know she was in [place], however she was unaware of how she arrived to the hospital or that she had been in the emergency department. Initial lab work done in the ER showed CO2 of 31, BUN of 35 and a glucose of 200. CBC and CMP unremarkable. Troponin less than 0.012. NT proBNP 207. EKG done in the ER showed heart rate of 90, normal sinus rhythm, and possible left atrial enlargement and left ventricular hypertrophy. Initial chest x-ray done in the ER showed a right sided basal pneumothorax, along with trace bilateral pleural effusions and flattening of the diaphragms consistent with COPD. 01/17 - Patient seen at bedside in the ICU today, where she was moved early this morning as a result of worsening shortness of breath and increasing oxygen demand due to significant subcutaneous emphysema. She was placed on AirVo high flow nasal canulla and a right thoracostomy tube was placed by Dr. Rincon with re-expansion of the right lung, without evidence of a pneumothorax and subcutaneous emphysema throughout the thorax, per chest X ray this morning follo wing thoracostomy. She was initially placed on AirVo high flow nasal canulla, following use of a non re-breather, where she began at 55 LPM with an FiO2 of 90%, she has been weened to 45 LPM with an FiO2 of 80% as of this afternoon. When visiting bedside patient had just taken a Dilaudid and was resting in bed. Switched from Dilaudid to Toradol for pain control as the result of the grogginess caused on the Dilaudid. Patient had no current complaints. Labs drawn today - WBCs of 11.8, BUN of 46 01/18 -patient seen at bedside in the ICU today. She appears better today, more awake and very pleasant to interact with, she seems to have increased appetite as she had eaten most of her breakfast prior to my arrival. She states that she has no current complaints. Her visible subcutaneous emphysema above the right clavicle has improved significantly. Overnight patient was weaned on her high flow nasal cannula, presenting with an oxygen saturation of 98% receiving 45 LPM and an FiO2 of 60%. Currently she has been weaned further, having oxygen saturation 99% while receiving 40 LPM and FiO2 of 55%. Chest x-ray this morning (01/18) showed no evidence of pneumothorax, with a small right thoracotomy tube with subcutaneous gas throughout the thorax subcutaneous tissues. Labs drawn today - WBCs of 6.7, Hgb of 11.1, BUN of 44 REVIEW OF SYSTEMS: CONSTITUTIONAL: No fever, no malaise. CARDIOVASCULAR: No chest pain, no palpitations, no syncope. PULMONARY: No shortness of breath, no cough. GASTROINTESTINAL: As stated above. GENITOURINARY: Carvajal present draining clear yellow urine. NEUROLOGICAL: No headaches, no weakness, PHYSICAL EXAMINATION: GENERAL: Awake and alert, not in any acute distress. Very frail appearing. HEENT: Pupils are round and equally reacting to light. EOMI. No scleral icterus. No conjunctival pallor. Normocephalic, atraumatic. No pharyngeal erythema. No thyromegaly. CARDIOVASCULAR: S1 and S2 present. No murmurs, rubs, or gallops. PULMONARY: Diminished lung sounds on the right. On AirVo, 40 LPM, 55% FiO2, O2 saturation of 99%. ThoraVent no longer present, right thoracostomy tube connected to continuous suction. ABDOMEN: Soft, nontender, nondistended, normoactive bowel sounds. No palpable organomegaly. MUSCULOSKELETAL: No joint swelling or deformity. EXTREMITIES: No cyanosis, or clubbing. Pedal edema present NEUROLOGICAL: Gross neurological examination did not reveal any focal deficits. Alert and oriented, however appears confused. SKIN: Bilateral lower extremity wounds seen Assessment and plan 1. Right-sided basal pneumothorax Right-sided Thora vent placed in the emergency department This present and connected to the atrium with continuous wall suction, without airleak Surgery ordered incentive spirometry and encourage use Increase activity as tolerated PT and OT referred by surgery 2. Acute hypoxic respiratory failure secondary to right-sided pneumothorax On arrival O2 sat 93% and 91.2% on ABG Hypoxia has resolved following resolution of pneumothorax on 3 L nasal cannula She is continuing to receive Symbicort, DuoNeb, Zithromax and prednisone; Zithromax discontinued on 01/17, Rocephin IV started - Another episode of hypoxic respiratory failure early on 01/17 lead to admission to ICU where right thoracostomy tube was placed by Dr. Rincon. - Continue chest tube with continuous wall suction - Chest X ray taken after the placement of the thoracostomy tube showed it present, without evidence of a pneumothorax. 3. Chronic and ongoing tobacco dependence She continues to smoke and removes her oxygen due so She has been encouraged to stop, however has not been compliant 4. Oxygen dependent chronic COPD/emphysema Uses DuoNeb and fluticasonesalmeterol at home - Per pulmonology note from her stay 1 month ago she is inconsistent in using her medications Remains on 3 L nasal cannula at home Per pulmonology COPD is stable 5. Low BMI Patient's BMI estimated at 17.2 Poor dietary intake recorded, nutritional assessment by dietitian Per dietitian recommendations she will be given Ensure Enlive 3 times daily 6. Likely asymptomatic bacteriuria vs. possible UTI UA completed on 01/17 showed urine turbid appearance, positive urine nitrates, greater than 182 urine WBCs, many urine WBC clumps, many urine bacteria Patient has been afebrile since arrival WBCs on labs drawn on 01/17 were elevated at 11.8, however on 01/18 were 6.7 - Zithromax 500 mg daily discontinued, patient started on Rocephin IV for 3 days Procalcitonin ordered Monitor vital signs Monitor oxygen levels Labs and medication were reviewed. Continue with symptomatic treatment. Resume home medication. Monitor labs and vitals. DVT and GI prophylaxis. Further r ecommendations as per clinical course of the patient Dictation was produced using [employer] dictation software. please excuse any grammatical, word or spelling errors. Objective - Vital Signs Vital signs: Vital Signs Temp 97.3 F L 01/19/24 00:00 Pulse 80 01/19/24 03:00 Resp 18 01/19/24 03:00 BP 116/71 01/19/24 03:00 Pulse Ox 98 01/19/24 04:07 FiO2 60 01/19/24 04:07 Intake & Output 01/18/24 01/19/24 01/19/24 18:59 06:59 18:59 Intake Total 725 775 Output Total 267 234 Balance 458 541 Weight 46.2 kg Intake: IV 725 675 Sodium Chloride 0.9% 1, 675 675 000 ml @ 75 mls/hr IV . [id number] [facility] Rx#:[id number] cefTRIAXone 1 gm In 50 Sodium Chloride 0.9% 50 ml @ 100 mls/hr IVPB Q24HR [facility] Rx#:[id number] Oral 100 Output: Urine 267 234 Other: Voiding Method Indwelling Catheter Indwelling Catheter - Labs CBC & Chem 7: 01/19/24 05:23 01/19/24 05:23 Labs: Abnormal Lab Results - Last 24 Hours (Table) 01/18/24 01/18/24 01/19/24 Range/Units 07:21 07:21 05:23 WBC 11.8 H (3.8-10.6) k/uL Hgb 11.1 L (11.4-16.0) gm/dL Lymphocytes # 0.4 L (1.0-4.8) k/uL Carbon Dioxide 33 H (22-30) mmol/L BUN 46 H (7-17) mg/dL Glucose 125 H (74-99) mg/dL 01/19/24 Range/Units 05:23 WBC (3.8-10.6) k/uL Hgb (11.4-16.0) gm/dL Lymphocytes # (1.0-4.8) k/uL Carbon Dioxide (22-30) mmol/L BUN 44 H (7-17) mg/dL Glucose 123 H (74-99) mg/dL
[2024-01-20 06:31] LABS: HGB 9.9 gm/dL (11.4-16.0); Hypochromasia Moderate; MCH 28.6 pg (25.0-35.0); MCV 92.1 fL (80.0-100.0); Mean Platelet Volume 7.5; Platelet Count 280 k/uL (150-450); RBC 3.48 m/uL (3.80-5.40); RDW 15.7 % (11.5-15.5); WBC 9.4 k/uL (3.8-10.6)
[2024-01-20 06:47] LABS: African American GFR (CKD) >90 (>60 ml/min/1.73 sqM); Anion Gap 1 mmol/L; Blood Urea Nitrogen 29 mg/dL (7-17); Calcium 8.5 mg/dL (8.4-10.2); Carbon Dioxide 30 mmol/L (22-30); Chloride 110 mmol/L (98-107); Glucose 73 mg/dL (74-99); Magnesium 1.8 mg/dL (1.6-2.3); Non-African American GFR(CKD) 83 (>60 ml/min/1.73 sqM); Potassium 3.7 mmol/L (3.5-5.1); Sodium 141 mmol/L (137-145)
--- NOTE | 2024-01-20 06:57 | XR ---
EXAMINATION TYPE: XR chest 1V portable DATE OF EXAM: 01/20/2024 4:52 AM CLINICAL INDICATION:Female, 74 years old with history of pneumothorax; [facility] COMPARISON: Chest radiograph from one day prior. TECHNIQUE: XR chest 1V portable Frontal view of the chest. FINDINGS: Lungs/Pleura: Prominent interstitial lung markings are seen scattered throughout the lungs with grace ening of the diaphragm and increased lucency of the lung apices. No evidence of focal consolidation, pneumothorax or pleural effusion. Pulmonary vascularity: Unremarkable. Heart/mediastinum: Cardiomediastinal silhouette is unremarkable. Atherosclerotic calcifications are seen in the aorta. Musculoskeletal: No acute osseous pathology. Other findings: Subcutaneous emphysema scattered throughout the visualized thorax. Lines/Tubes: Right thoracotomy tube is present without evidence of pneumothorax. IMPRESSION: 1. Stable exam with right thoracotomy tube no evidence for pneumothorax. 2. Emphysema changes.
--- NOTE | 2024-01-20 07:18 | P.PN ---
Subjective Progress Note Date: 01/20/24 Principal diagnosis: Spontaneous right-sided pneumothorax, second occurrence, status post placement of thoravent. History of right-sided pneumothorax in April 2022, chronic hypo xemic respiratory failure on home oxygen, COPD, tobacco dependence, hypertension, frequent falls, depression Acute hypoxic respiratory failure secondary to increased right sided pneumothorax with significant subcutaneous emphysema, status post right thoracostomy tube placement by Dr. Rincon The patient was seen and examined this morning sitting up in bed in the ICU in no acute distress eating breakfast. She has been weaned down to 2 L nasal cannula with oxygen saturation in the mid 90s. She appears comfortable. Her visible subcutaneous emphysema has improved significantly. Right-sided chest tube remains to continuous wall suction, no air leak present this morning although the patient is not able to give a significant cough. Chest x-ray reviewed, no pneumothorax present although subcutaneous emphysema still apparent. Remains in sinus rhythm, otherwise hemodynamically stable. Objective - Vital Signs Vital signs: Vital Signs Temp 98.6 F 01/20/24 04:00 Pulse 76 01/20/24 07:00 Resp 52 H 01/20/24 07:00 BP 165/82 01/20/24 07:00 Pulse Ox 96 01/20/24 07:00 FiO2 6 01/19/24 17:00 Intake & Output 01/19/24 01/20/24 01/20/24 18:59 06:59 18:59 Intake Total 950 900 75 Output Total 529 400 30 Balance 421 500 45 Weight 46.5 kg Intake: IV 950 900 75 Sodium Chloride 0.9% 1, 900 900 75 000 ml @ 75 mls/hr IV . [id number] [facility] Rx#:[id number] cefTRIAXone 1 gm In 50 Sodium Chloride 0.9% 50 ml @ 100 mls/hr IVPB Q24HR [facility] Rx#:[id number] Output: Chest Tube Drainage 14 5 Chest Tube Right 14 5 Urine 515 395 30 Other: Voiding Method Indwelling Catheter Indwelling Catheter - Exam CONSTITUTIONAL: Awake and alert, no pain, no acute distress, appears very frail RESPIRATORY: Lungs sounds diminished bilaterally. Respirations even, slightly labored. Currently on 2 L nasal cannula with oxygen saturation 94%. Weak cough. Right anterior thoracostomy tube present and connected to continuous wall suction with no airleak this morning, total 20 mL serosanguineous drainage CARDIOVASCULAR: S1, S2 present. Regular rate and rhythm, sinus rhythm on telemetry. Palpable peripheral pulses bilaterally. No edema present GASTROINTESTINAL: Abdomen soft, nontender, nondistended without masses or organomegaly noted. There is no rebound or guarding present. Active bowel sounds present 4 quadrants. GENITOURINARY: Carvajal present draining clear yellow urine INTEGUMENTARY: Skin is warm and dry NEUROLOGIC: Cranial nerves II through XII intact MUSKULOSKELETAL: Able to move all extremities PSYCHIATRIC: Alert and oriented to person, appears confused - Allied health notes Allied health notes reviewed: nursing - Labs CBC & Chem 7: 01/20/24 05:11 01/20/24 05:11 Labs: Abnormal Lab Results - Last 24 Hours (Table) 01/19/24 01/20/24 01/20/24 Range/Units 05:23 05:11 05:11 RBC 3.48 L (3.80-5.40) m/uL Hgb 9.9 L (11.4-16.0) gm/dL Hct 32.0 L (34.0-46.0) % RDW 15.7 H (11.5-15.5) % Chloride 110 H (98-107) mmol/L BUN 29 H (7-17) mg/dL Glucose 73 L (74-99) mg/dL Procalcitonin 0.13 H (0.02-0.09) ng/mL Microbiology - Last 24 Hours (Table) 01/18/24 06:05 Urine Culture - Preliminary Urine,Catheterized Gram Neg Bacilli - Imaging and Cardiology Chest x-ray: report reviewed, image reviewed Assessment and Plan Assessment: Spontaneous right-sided pneumothorax, second occurrence, S/P thoravent by the ER physicians Acute hypoxic respiratory failure secondary to increased right PTX with significant subq emphysema, S/P placement of right thoracostomy tube by Dr. Rincon History of right-sided pneumothorax in April 2022 Chronic hypoxemic respiratory failure on home oxygen COPD Tobacco dependence Hypertension Frequent falls Depression Plan: Continue chest tube to continuous wall suction, monitor for airleak Conservative management, no surgical intervention planned Wean oxygen as tolerated, encourage incentive spirometry, bronchodilators/s teroids per pulmonology Will monitor daily CXR Increase activity as tolerated, PT/OT consulted Medical management of other comorbidities per internal medicine, pulmonology Poor prognosis, consider palliative care
[2024-01-20] MEDS: POTASSIUM CHLORIDE ER 20 MEQ TAB.ER PO SCH (08:34)
--- NOTE | 2024-01-20 09:30 | P.PN ---
Subjective Progress Note Date: 01/20/24 Principal diagnosis: Shortness of breath. Progress note dated January 19, 2024. 74-year-old female who was initially seen in consultation on January 16. She had a follow-up with no yesterday. Yesterday, because of a recurrent and more significant right-sided pneumothorax, a chest tube was placed. A 28 Cymraes chest tube was placed on the right side without difficulty. Currently, she is on Airvo, at 40 L/min with an FiO2 55%. She is getting saline at 75 cc an hour. The chest tube was noted to be in proper position on chest x-ray. There is no leak noted. The chest tube remains on suction. Cardiothoracic surgery is following the patient also. Current laboratory includes a white count 6.7, hemoglobin 11.1, hematocrit 35.7, and a normal platelet count. Sodium 140, pota ssium 4.5, chlorides 107, CO2 29, BUN 44, creatinine 0.69. Glucose is 123. Calcium 8.7. Urine is showing gram-negative bacilli. It has yet to be identified. The patient continues on Rocephin. Other important medications include Symbicort, and DuoNeb, as well as prednisone 40 mg. Progress note dated January 20, 2024. 74-year-old female seen initially in consultation on January 16. The patient was seen yesterday in the intensive care unit, and then again today in the intensive care unit. She is in room 254. She is doing much better today. She is down to 2 L of oxygen. She is getting saline at 75 cc an hour. Her urine shows gram- negative organisms, and she is currently on Rocephin. She is clinically feeling better. Her chest x-ray is stable. There is no air leak from the right side. Current labs include a white count 9.4, hemoglobin 9.9, hematocrit 32, and platelet count of 280,000. Sodium 141, potassium 3.7, chlorides 110, CO2 30, BUN 29, and creatinine 0.71. Procalcitonin level was 0.13. Urine was positive for Escherichia coli. It is an ESBL E. coli, and she will need to be switched to ertapenem. Chest x-ray stable. Objective - Vital Signs Vital signs: Vital Signs Temp 97.3 F L 01/20/24 08:00 Pulse 85 01/20/24 09:00 Resp 39 H 01/20/24 09:00 BP 141/67 01/20/24 09:00 Pulse Ox 92 L 01/20/24 09:00 FiO2 6 01/19/24 17:00 Intake & Output 01/19/24 01/20/24 01/20/24 18:59 06:59 18:59 Intake Total 950 900 665 Output Total 529 400 180 Balance 421 500 485 Weight 46.5 kg Intake: IV 950 900 275 Sodium Chloride 0.9% 1, 900 900 225 000 ml @ 75 mls/hr IV . [id number] [facility] Rx#:[id number] cefTRIAXone 1 gm In 50 50 Sodium Chloride 0.9% 50 ml @ 100 mls/hr IVPB Q24HR [facility] Rx#:[id number] Intake, IV Titration 150 Amount Sodium Chloride 0.9% 1, 150 000 ml @ 75 mls/hr IV . [id number] [facility] Rx#:[id number] Oral 240 Output: Chest Tube Drainage 14 5 Chest Tube Right 14 5 Urine 515 395 180 Other: Voiding Method Indwelling Catheter Indwelling Catheter Indwelling Catheter - Exam No acute distress, oriented 3. Currently on 2 L. No respiratory distress. Saturation is 92%. HEENT examination is grossly unremarkable. Mucous membranes are moist. No oral lesions. Neck supple. Full range of motion. No adenopathy thyromegaly or neck vein distention. Cardiovascular examination reveals regular rhythm rate. S1-S2 normal. No S3 or S4. No discernible murmur noted. Heart sounds are distant. Heart rate 85 bpm. Lungs reveal diminished breath sounds throughout. Few scattered rhonchi. No wheezes or crackles. Subcutaneous emphysema is improved. Abdomen soft bowel sounds are heard. No masses or tenderness. Extremities are intact. No cyanosis clubbing or edema. Skin is without rash or lesion. Neurologic examination is brief but nonfocal. - Labs CBC & Chem 7: 01/20/24 05:11 01/20/24 05:11 Labs: Abnormal Lab Results - Last 24 Hours (Table) 01/19/24 01/20/24 01/20/24 Range/Units 05:23 05:11 05:11 RBC 3.48 L (3.80-5.40) m/uL Hgb 9.9 L (11.4-16.0) gm/dL Hct 32.0 L (34.0-46.0) % RDW 15.7 H (11.5-15.5) % Chloride 110 H (98-107) mmol/L BUN 29 H (7-17) mg/dL Glucose 73 L (74-99) mg/dL Procalcitonin 0.13 H (0.02-0.09) ng/mL Microbiology - Last 24 Hours (Table) 01/18/24 06:05 Urine Culture - Final Urine,Catheterized Escherichia coli Assessment and Plan Assessment: Acute right-sided pneumothorax, initially treated with a Thora vent device, and now a 28 Cymraes chest tube. Acute hypoxemic respiratory failure secondary to COPD and right pneumothorax. ESBL E. coli urinary tract infection. Mental status changes, improved. History of traumatic right-sided pneumothorax 2021. History of severe emphysema. Ongoing tobacco use with nicotine addiction. History of falls. History of medication noncompliance. Hypertension. Plan: Plan dated January 19, 2024. The patient appears to be doing better. The patient is a bit more awake and alert. The patient's right chest tube is in good position. There is no obvious pneumothorax. There is subcutaneous emphysema, which is improved. She has been weaned down on the Airvo, to 40 L/min with an FiO2 of 55%. She is getting saline at 75 cc an hour. Labs, x-rays, and all medications are reviewed. She is appropriately on DuoNeb, Symbicort, and prednisone. We will continue to follow make recommendations along the way. Plan dated January 20, 2024. The patient is doing much better. She has been weaned down to 2 L. She is getting saline at 75 cc an hour. The gram-negative in her urine is Escherichia coli, which is an ESBL E. coli. Her antibiotic will need to be switched to ertapenem. Labs, x-rays, medications are reviewed. No leak from that right- sided chest tube. Chest x-ray stable. Cardiothoracic surgery is following along. Time with Patient: Less than 30
[2024-01-20] MEDS: ERTAPENEM 1 GM in SODIUM CHLORIDE 0.9% 50 ML IVPB SCH (10:30)
[2024-01-20] MEDS ORDERED: Magnesium Replacement Protocol 1 EACH MISC MISCELLANE PRN (19:49)
--- NOTE | 2024-01-20 19:49 | P.PN ---
Subjective Progress Note Date: 01/20/24 Patient is evaluated today in the intensive care unit sitting up in bed. Reports feeling less short of breath, does continue with productive cough. Chest xray today reveals subcutaneous emphysema scattered throughout the visualized thorax. Stable exam with right thoracotomy tube no evidence for pneumothorax. Emphysema changes. Patients urine culture reveals ESBL UTI. Patient has been tolerating diet and will need to work with physical therapy for strengthening. Patient should be up out of bed with meals. Patient also needs encouragement to use incentive spirometer 10 x an hour. Urine output has increased overnight, patient had received a dose of IV lasix yesterday. Procalcitonin level 0.13. White blood cell count today 9.4, hgb 9.9, sodium 131, potassium 3.7, BUN 29, creatinine 0.71, magnesium 1.8. REVIEW OF SYSTEMS: CONSTITUTIONAL: No fever, no malaise. CARDIOVASCULAR: No chest pain, no palpitations, no syncope. PULMONARY: Reports shortness of breath, productive cough GASTROINTESTINAL: No abdominal pain, no nausea, vomiting or diarrhea. GENITOURINARY: No dysuria, urgency or burning NEUROLOGICAL: No headaches, no weakness, PHYSICAL EXAMINATION: GENERAL: Awake and alert, not in any acute distress. Very frail appearing. HEENT: Pupils are round and equally reacting to light. EOMI. No scleral icterus. No conjunctival pallor. Normocephalic, atraumatic. No pharyngeal erythema. No thyromegaly. CARDIOVASCULAR: S1 and S2 present. No murmurs, rubs, or gallops. PULMONARY: Diminished lung sounds on the right. Currently on 4L of oxygen, ThoraVent no longer present, right thoracostomy tube connected to continuous suction. ABDOMEN: Soft, nontender, nondistended, normoactive bowel sounds. No palpable organomegaly. Carvajal present draining clear yellow urine. MUSCULOSKELETAL: No joint swelling or deformity. EXTREMITIES: No cyanosis, or clubbing. Pedal edema present NEUROLOGICAL: Gross neurological examination did not reveal any focal deficits. Alert and oriented, however appears confused. SKIN: Bilateral lower extremity wounds seen Assessment Right sided pneumothorax Acute hypoxemic respiratory failure from the pneumothorax continues on 6L hi flow cannula Acute COPD exacerbation Oxygen dependent COPD maintained on 3L of oxygen outpatient Underweight; cachexia Acute urinary tract infection with ESBL E.Coli Hypertension Chronic nicotine use GI prophylaxis DVT prophylaxis:Subcutaneous heparin Full Code Plan Continue with right thoracotomy tube to suction. CT surgery planning to remove chest tube tomorrow Continue to encourage incentive spirometer 10 x an hour while awake Infectious disease consultation for the urine culture and has been started on IV ertapenem for the ESBL E.Coli found in the urine Status post IV lasix x 1 yesterday (01/19/24) Patient continues on normal saline at 75 mls/hr. Continue to wean oxygen as tolerated Patient has been downgraded from the ICU and pending bed on the medical floor. Repeat blood work in the AM, BMP/CBC. The impression and plan of care has been dictated by Celestina Mary Nurse Practitioner as directed. Dr. Gaby MD I have performed a history and physical examination and medical decision making of this patient, discussed the same with the dictator, and agree with the dictators assessment and plan as written, documented as a scribe. Based on total visit time, I have performed more than 50% of this visit. Objective - Vital Signs Vital signs: Vital Signs Temp 97.3 F L 01/20/24 08:00 Pulse 85 01/20/24 09:00 Resp 39 H 01/20/24 09:00 BP 141/67 01/20/24 09:00 Pulse Ox 92 L 01/20/24 09:00 FiO2 6 01/19/24 17:00 Intake & Output 01/19/24 01/20/24 01/20/24 18:59 06:59 18:59 Intake Total 950 900 665 Output Total 529 400 180 Balance 421 500 485 Weight 46.5 kg Intake: IV 950 900 275 Sodium Chloride 0.9% 1, 900 900 225 000 ml @ 75 mls/hr IV . [id number] [facility] Rx#:[id number] cefTRIAXone 1 gm In 50 50 Sodium Chloride 0.9% 50 ml @ 100 mls/hr IVPB Q24HR [facility] Rx#:[id number] Intake, IV Titration 150 Amount Sodium Chloride 0.9% 1, 150 000 ml @ 75 mls/hr IV . [id number] [facility] Rx#:[id number] Oral 240 Output: Chest Tube Drainage 14 5 Chest Tube Right 14 5 Urine 515 395 180 Other: Voiding Method Indwelling Catheter Indwelling Catheter Indwelling Catheter - Labs CBC & Chem 7: 01/20/24 05:11 01/20/24 05:11 Labs: Abnormal Lab Results - Last 24 Hours (Table) 01/19/24 01/20/24 01/20/24 Range/Units 05:23 05:11 05:11 RBC 3.48 L (3.80-5.40) m/uL Hgb 9.9 L (11.4-16.0) gm/dL Hct 32.0 L (34.0-46.0) % RDW 15.7 H (11.5-15.5) % Chloride 110 H (98-107) mmol/L BUN 29 H (7-17) mg/dL Glucose 73 L (74-99) mg/dL Procalcitonin 0.13 H (0.02-0.09) ng/mL Microbiology - Last 24 Hours (Table) 01/18/24 06:05 Urine Culture - Preliminary Urine,Catheterized Gram Neg Bacilli Assessment and Plan Time with Patient: Less than 30
[2024-01-20] MEDS: HEPARIN SODIUM,PORCINE 5,000 UNIT/ML 1 ML VIAL SQ SCH (22:42)
[2024-01-20] MEDS: MAGNESIUM SULFATE-D5W PMX 1 GM in DEXTROSE/WATER 1 100ML.BAG IVPB ONE (22:42)
[2024-01-21] MEDS: ACETAMINOPHEN TAB 325 MG TAB PO PRN (03:53)
--- NOTE | 2024-01-21 08:00 | XR ---
EXAMINATION TYPE: XR chest 1V portable DATE OF EXAM: 01/21/2024 COMPARISON: 01/20/2024 HISTORY: Shortness of breath TECHNIQUE: Frontal and lateral views of the chest are obtained. FINDINGS: Scattered senescent parenchymal changes noted. Hyperinflation compatible with COPD. Right Sided chest tube remains unchanged in position without sizable pneumothorax present. Basilar infiltrates persist right greater than left. Heart size is stable. Mediastinal structures are stable and grossly unremarkable. No evidence for hilar prominence. Degenerative changes dorsal spine. IMPRESSION: Right Sided chest tube remains unchanged in position without sizable pneumothorax present. Basilar infiltrates persist right greater than left.
--- NOTE | 2024-01-21 08:32 | P.PN ---
Subjective Progress Note Date: 01/21/24 Principal diagnosis: Spontaneous right-sided pneumothorax, second occurrence, status post placement of thoravent. History of right-sided pneumothorax in April 2022, chronic hypo xemic respiratory failure on home oxygen, COPD, tobacco dependence, hypertension, frequent falls, depression Acute hypoxic respiratory failure secondary to increased right sided pneumothorax with significant subcutaneous emphysema, status post right thoracostomy tube placement by Dr. Rincon The patient was seen and examined this morning sitting up in bed on the medical surgical unit in no acute distress. She is on 4 L nasal cannula with oxygen saturation in the high 90s. She appears comfortable. Her visible subcutaneous emphysema has improved significantly. Right-sided chest tube remains to continuous wall suction, no air leak present for 48 hours. Chest x-ray reviewed, no pneumothorax present, subcutaneous emphysema present but is less. Objective - Vital Signs Vital signs: Vital Signs Temp 98.2 F 01/21/24 02:00 Pulse 82 01/21/24 08:00 Resp 30 H 01/20/24 20:00 BP 161/74 01/21/24 02:00 Pulse Ox 90 L 01/21/24 07:50 FiO2 6 01/19/24 17:00 Intake & Output 01/20/24 01/21/24 01/21/24 18:59 06:59 18:59 Intake Total 790 100 Output Total 1055 610 Balance -265 -510 Weight 48 kg Intake: IV 500 Sodium Chloride 0.9% 1, 450 000 ml @ 75 mls/hr IV . [id number] [facility] Rx#:[id number] cefTRIAXone 1 gm In 50 Sodium Chloride 0.9% 50 ml @ 100 mls/hr IVPB Q24HR [facility] Rx#:[id number] Intake, IV Titration 50 100 Amount Ertapenem 1 gm In Sodium 50 Chloride 0.9% 50 ml @ 100 mls/hr IVPB DAILY [facility] Rx #:[id number] Magnesium Sulfate-D5w Pmx 100 1 gm In Dextrose/Water 1 100ml.bag @ 100 mls/hr IVPB ONCE ONE Rx#: [id number] Oral 240 Output: Chest Tube Drainage 10 Chest Tube Right 10 Urine 1055 600 Other: Voiding Method Indwelling Catheter Indwelling Catheter # Bowel Movements 1 - Exam CONSTITUTIONAL: Awake and alert, no pain, no acute distress, appears very frail RESPIRATORY: Lungs sounds diminished bilaterally. Respirations even, slightly labored. Currently on 4 L nasal cannula with oxygen saturation 97%. Weak cough. Right anterior thoracostomy tube present and connected to continuous wall suction with no airleak, total 50 mL serosanguineous drainage CARDIOVASCULAR: S1, S2 present. Regular rate and rhythm, sinus rhythm on telemetry. Palpable peripheral pulses bilaterally. No edema present GASTROINTESTINAL: Abdomen soft, nontender, nondistended without masses or organomegaly noted. There is no rebound or guarding present. Active bowel sounds present 4 quadrants. Positive bowel movement 01/20 GENITOURINARY: Carvajal present draining clear yellow urine INTEGUMENTARY: Skin is warm and dry NEUROLOGIC: Cranial nerves II through XII intact MUSKULOSKELETAL: Able to move all extremities PSYCHIATRIC: Alert and oriented to person, appears confused - Allied health notes Allied health notes reviewed: nursing - Labs CBC & Chem 7: 01/20/24 05:11 01/20/24 05:11 Labs: Microbiology - Last 24 Hours (Table) 01/18/24 06:05 Urine Culture - Final Urine,Catheterized Escherichia coli - Imaging and Cardiology Chest x-ray: report reviewed, image reviewed Assessment and Plan Assessment: Spontaneous right-sided pneumothorax, second occurrence, S/P thoravent by the ER physicians Acute hypoxic respiratory failure secondary to increased right PTX with significant subq emphysema, S/P placement of right thoracostomy tube by Dr. Rincon History of right-sided pneumothorax in April 2022 Chronic hypoxemic respiratory failure on home oxygen COPD Tobacco dependence Hypertension Frequent falls Depression Plan: Chest tube placed to waterseal, monitor for airleak. Will repeat chest x-ray at noon to make sure no pneumothorax Conservative management, no surgical intervention planned Wean oxygen as tolerated, encourage incentive spirometry, bronchodilators/steroids per pulmonology Will monitor daily CXR Increase activity as tolerated, PT/OT consulted Medical management of other comorbidities per internal medicine, pulmonology Poor prognosis, consider palliative care
[2024-01-21 09:07] LABS: Blood Urea Nitrogen 15.1 mg/dL (9.0-27.0); Calcium 8.5 mg/dL (8.7-10.3); Carbon Dioxide 28.5 mmol/L (21.6-31.8); Chloride 103 mmol/L (96-109); Glucose 103 mg/dL (70-110); Potassium 3.8 mmol/L (3.5-5.5); Sodium 139 mmol/L (135-145)
[2024-01-21 09:20] LABS: Basophils # (A) 0.03 X 10*3/uL (0.00-0.10); Basophils % (A) 0.3 %; Eosinophils # (A) 0.08 X 10*3/uL (0.04-0.35); Eosinophils % (A) 0.8 %; HCT 33.3 % (37.2-46.3); HGB 10.5 g/dL (12.0-15.0); Lymphocytes % (A) 9.7 %; MCH 28.8 pg (27.0-32.0); MCHC 31.5 g/dL (32.0-37.0); MCV 91.5 FL (80.0-97.0); Mean Platelet Volume 10.9 FL (9.5-12.2); Monocytes # (A) 0.53 X 10*3/uL (0.20-1.00); Monocytes % (A) 5.2 %; NRBC Per 100 WBC 0 X 10*3/uL (0.00-0.01); Neutrophils # (A) 8.58 X 10*3/uL (1.80-7.70); Neutrophils % (A) 83.6 %; Platelet Count 289 X 10*3/uL (140-440); RBC 3.64 X 10*6/uL (4.10-5.20); RDW 16.4 % (11.5-14.5); WBC 10.26 X 10*3/uL (4.50-10.00)
--- NOTE | 2024-01-21 11:10 | P.PN ---
Subjective Progress Note Date: 01/21/24 Progress note dated January 19, 2024. 74-year-old female who was initially seen in consultation on January 16. She had a follow-up with no yesterday. Yesterday, because of a recurrent and more significant right-sided pneumothorax, a chest tube was placed. A 28 Serbian chest tube was placed on the right side without difficulty. Currently, she is on Airvo, at 40 L/min with an FiO2 55%. She is getting saline at 75 cc an hour. The chest tube was noted to be in proper position on chest x-ray. There is no leak noted. The chest tube remains on suction. Cardiothoracic surgery is following the patient also. Current laboratory includes a white count 6.7, hemoglobin 11.1, hematocrit 35.7, and a normal platelet count. Sodium 140, potassium 4.5, chlorides 107, CO2 29, BUN 44, creatinine 0.69. Glucose is 123. Calcium 8.7. Urine is showing gram-negative bacilli. It has yet to be identified. The patient continues on Rocephin. Other important medications include Symbicort, and DuoNeb, as well as prednisone 40 mg. Progress note dated January 20, 2024. 74-year-old female seen initially in consultation on January 16. The patient was seen yesterday in the intensive care unit, and then again today in the intensive care unit. She is in room 254. She is doing much better today. She is down to 2 L of oxygen. She is getting saline at 75 cc an hour. Her urine shows gram- negative organisms, and she is currently on Rocephin. She is clinically feeling better. Her chest x-ray is stable. There is no air leak from the right side. Current labs include a white count 9.4, hemoglobin 9.9, hematocrit 32, and platelet count of 280,000. Sodium 141, potassium 3.7, chlorides 110, CO2 30, BUN 29, and creatinine 0.71. Procalcitonin level was 0.13. Urine was positive for Escherichia coli. It is an ESBL E. coli, and she will need to be switched to ertapenem. Chest x-ray stable. The patient is seen today January 21, 2024 in follow-up on the regular medical floor. She is currently sitting up in bed. Awake and alert in no acute distress. She is requiring 5 L/min per nasal cannula to maintain O2 saturations in the 90s. No IV fluids. Chest x-ray no sizable pneumothorax. Right-sided chest tube remains in place. Currently off suction and placed to [facility]. Basilar infiltrates persist right greater than left. Urine culture was positive for E. coli. White count 10.2. Hemoglobin 10.5. Platelets 289. Sodium 139. Potassium 3.5. Bicarb 28. BUN 15. Creatinine 0.5. Glucose 103. He is continued on DuoNeb ventilations, Symbicort. Antibiotics in the form of ertapenem. Heparin for DVT prophylaxis. Objective - Vital Signs Vital signs: Vital Signs Temp 98.4 F 01/21/24 07:20 Pulse 82 01/21/24 08:00 Resp 22 01/21/24 07:20 BP 181/93 01/21/24 07:20 Pulse Ox 90 L 01/21/24 07:50 FiO2 6 01/19/24 17:00 Intake & Output 01/20/24 01/21/24 01/21/24 18:59 06:59 18:59 Intake Total 790 100 Output Total 1055 610 Balance -265 -510 Weight 48 kg Intake: IV 500 Sodium Chloride 0.9% 1, 450 000 ml @ 75 mls/hr IV . [id number] [facility] Rx#:[id number] cefTRIAXone 1 gm In 50 Sodium Chloride 0.9% 50 ml @ 100 mls/hr IVPB Q24HR [facility] Rx#:[id number] Intake, IV Titration 50 100 Amount Ertapenem 1 gm In Sodium 50 Chloride 0.9% 50 ml @ 100 mls/hr IVPB DAILY [facility] Rx #:[id number] Magnesium Sulfate-D5w Pmx 100 1 gm In Dextrose/Water 1 100ml.bag @ 100 mls/hr IVPB ONCE ONE Rx#: [id number] Oral 240 Output: Chest Tube Drainage 10 Chest Tube Right 10 Urine 1055 600 Other: Voiding Method Indwelling Catheter Indwelling Catheter # Bowel Movements 1 1 - Exam GENERAL EXAM: Alert, weak, frail 74-year-old female, on 5 L nasal cannula, fairly comfortable in no apparent distress. HEAD: Normocephalic. EYES: Normal reaction of pupils, equal size. NOSE: Clear with pink turbinates. THROAT: No erythema or exudates. NECK: No masses, no JVD. CHEST: No chest wall deformity. LUNGS: Equal air entry with basilar crackles right greater than left. Right- sided chest tube in place to [facility]. CVS: S1 and S2 normal with no audible murmur, regular rhythm. ABDOMEN: No hepatosplenomegaly, normal bowel sounds, no guarding or rigidity. SPINE: No scoliosis or deformity SKIN: No rashes CENTRAL NERVOUS SYSTEM: No focal deficits, tone is normal in all 4 extremities. EXTREMITIES: There is no peripheral edema. No clubbing, no cyanosis. Peripheral pulses are intact. - Labs CBC & Chem 7: 01/21/24 04:25 01/21/24 04:25 Labs: Abnormal Lab Results - Last 24 Hours (Table) 01/21/24 01/21/24 Range/Units 04:25 04:25 WBC 10.26 H (4.50-10.00) X 10*3/uL RBC 3.64 L (4.10-5.20) X 10*6/uL Hgb 10.5 L (12.0-15.0) g/dL Hct 33.3 L (37.2-46.3) % MCHC 31.5 L (32.0-37.0) g/dL RDW 16.4 H (11.5-14.5) % Neutrophils # 8.58 H (1.80-7.70) X 10*3/uL Creatinine 0.5 L (0.6-1.5) mg/dL BUN/Creatinine Ratio 30.20 H (12.00-20.00) Ratio Calcium 8.5 L (8.7-10.3) mg/dL Microbiology - Last 24 Hours (Table) 01/18/24 06:05 Urine Culture - Final Urine,Catheterized Escherichia coli Assessment and Plan Assessment: Acute right-sided pneumothorax, initially treated with a Thora vent device, and now a 28 Serbian chest tube, placed on waterseal today 01/21/2024 Acute hypoxemic respiratory failure secondary to COPD and right pneumothorax ESBL E. coli urinary tract infection. Currently on ertapenem Mental status changes, improved History of traumatic right-sided pneumothorax 2021 History of severe emphysema Ongoing tobacco use with nicotine addiction History of falls History of medication noncompliance Hypertension Plan: The patient was seen and evaluated Chest x-ray, labs and medications reviewed No evidence of pneumothorax Chest tube currently to waterseal Continue bronchodilators, antibiotics Heparin for DVT prophylaxis Encourage increased use of the incentive spirometer Follow-up chest x-ray pending This patient was seen independently by the pulmonary nurse practitioner addressing pulmonary issues I have personally seen and examined the patient, performed the documentation and the assessment and plan as written. Number of minutes spent on the visit: 25.
[2024-01-21] MEDS: FUROSEMIDE 10 MG/ML 2 ML VIAL IV STA (12:01)
--- NOTE | 2024-01-21 12:09 | XR ---
EXAMINATION TYPE: XR chest 1V portable DATE OF EXAM: 01/21/2024 HISTORY: Shortness of breath. COMPARISON: same day TECHNIQUE: Single view of the chest is submitted. FINDINGS: Demonstrated are scattered senescent parenchymal change. Right-sided chest tube without sizable pneumothorax. The chest tube port may in fact be outside of th e chest. Subcutaneous air is noted along the right chest wall. Patchy density right lower lobe and to a lesser extent left lower lobe persists. The heart is stable. Hilar and mediastinal structures are within normal limits. Degenerative changes are seen of the dorsal spine. IMPRESSION: 1. Right-sided chest tube without sizable pneumothorax. The chest tube port may in fact be outside o f the chest. Subcutaneous air is noted along the right chest wall. Patchy density right lower lobe an d to a lesser extent left lower lobe persists.
--- NOTE | 2024-01-21 13:59 | P.PN ---
Subjective Progress Note Date: 01/21/24 History of present illness; 74-year-old female presented to the emergency department with shortness of breath. Patient was brought to the emergency department by EMS, who reported they found her in significant distress sitting in the tripod position and tachypneic. Initial chest x-ray upon arriving in the emergency department showed the patient had a right-sided pneumothorax, for which she had a right-sided Thora vent placed. Following which pulmonology was consulted. Patient was found to be unable to give a great history, as a result of her dyspnea as well as elements of possible delirium or possible dementia. Her past medical history is significant for previous traumatic pneumothorax in April 2022, chronic hypoxemic respiratory failure on home oxygen, tobacco dependence and COPD for which she takes fluticasonesalmeterol and DuoNeb. Upon admission to the emergency department her oxygen saturation was 93 on BiPAP and respiratory rate was 30, currently is satting at 96% on 3 L nasal cannula. ABG completed this morning showed pCO2 of 59, pO2 59, HCO3 of 34, ABG O2 saturation of 91.2. Some difficulties in communicating/asking questions to the patient, due to either difficulty hearing or potentially not understanding, as the patient would occasionally answer questions that were not being asked. Patient did know she was in [place], however she was unaware of how she arrived to the hospital or that she had been in the emergency department. Initial lab work done in the ER showed CO2 of 31, BUN of 35 and a glucose of 200. CBC and CMP unremarkable. Troponin less than 0.012. NT proBNP 207. EKG done in the ER showed heart rate of 90, normal sinus rhythm, and possible left atrial enlargement and left ventricular hypertrophy. Initial chest x-ray done in the ER showed a right sided basal pneumothorax, along with trace bilateral pleural effusions and flattening of the diaphragms consistent with COPD. 01/17 - Patient seen at bedside in the ICU today, where she was moved early this morning as a result of worsening shortness of breath and increasing oxygen demand due to significant subcutaneous emphysema. She was placed on AirVo high flow nasal canulla and a right thoracostomy tube was placed by Dr. Rincon with re-expansion of the right lung, without evidence of a pneumothorax and subcutaneous emphysema throughout the thorax, per chest X ray this morning follo wing thoracostomy. She was initially placed on AirVo high flow nasal canulla, following use of a non re-breather, where she began at 55 LPM with an FiO2 of 90%, she has been weened to 45 LPM with an FiO2 of 80% as of this afternoon. When visiting bedside patient had just taken a Dilaudid and was resting in bed. Switched from Dilaudid to Toradol for pain control as the result of the grogginess caused on the Dilaudid. Patient had no current complaints. Labs drawn today - WBCs of 11.8, BUN of 46 01/18 -patient seen at bedside in the ICU today. She appears better today, more awake and very pleasant to interact with, she seems to have increased appetite as she had eaten most of her breakfast prior to my arrival. She states that she has no current complaints. Her visible subcutaneous emphysema above the right clavicle has improved significantly. Overnight patient was weaned on her high flow nasal cannula, presenting with an oxygen saturation of 98% receiving 45 LPM and an FiO2 of 60%. Currently she has been weaned further, having oxygen saturation 99% while receiving 40 LPM and FiO2 of 55%. Chest x-ray this morning (01/18) showed no evidence of pneumothorax, with a small right thoracotomy tube with subcutaneous gas throughout the thorax subcutaneous tissues. Labs drawn today - WBCs of 6.7, Hgb of 11.1, BUN of 44 01/20 - Patient seen at bedside today, she is no longer in the ICU. She looks more awake and alert today, and has continued to look a little better over the past couple of days. She states she is feeling better. When seen today she was sitting in her chair, as opposed on the bed. She is currently on 4 L nasal cannula saturating in the high 90s. Her visible subcutaneous emphysema has improved significantly. Sided chest tube remains to continuous wall suction, with no airleak present for 48 hours. Her chest x-ray showed no pneumothorax present, subcutaneous emphysema present but less, with some patchy density in the right lower lobe. 20 mg IV Lasix given, due to the patchiness possibly being a result of fluid accumulation. Her urine was positive for gram-negative organisms, Escherichia coli. Procalcitonin was elevated at 0.13. Indications are it is an ESBL E. coli, she has been switched from Rocephin to ertapenem. PT/OT consulted. Labs drawn today -WBCs 10.26, Hgb 10.5, Hct 33.3, Neutrophils 8.58, calcium 8.5 REVIEW 10.5,OF SYSTEMS: CONSTITUTIONAL: No fever, no malaise. CARDIOVASCULAR: No chest pain, no palpitations, no syncope. PULMONARY: No shortness of breath, no cough. GASTROINTESTINAL: As stated above. GENITOURINARY: Carvajal present draining clear yellow urine. NEUROLOGICAL: No headaches, no weakness, PHYSICAL EXAMINATION: GENERAL: Awake and alert, not in any acute distress. Very frail appearing. HEENT: Pupils are round and equally reacting to light. EOMI. No scleral icterus. No conjunctival pallor. Normocephalic, atraumatic. No pharyngeal erythema. No thyromegaly. CARDIOVASCULAR: S1 and S2 present. No murmurs, rubs, or gallops. PULMONARY: Diminished lung sounds on the right. On 5 L nasal cannula saturating at 90%. ThoraVent no longer present, right thoracostomy tube connected to continuous suction. ABDOMEN: Soft, nontender, nondistended, normoactive bowel sounds. No palpable organomegaly. MUSCULOSKELETAL: No joint swelling or deformity. EXTREMITIES: No cyanosis, or clubbing. Pedal edema present NEUROLOGICAL: Gross neurological examination did not reveal any focal deficits. Alert and oriented, however appears confused. SKIN: Bilateral lower extremity wounds seen Assessment and plan 1. Right-sided basal pneumothorax Right-sided Thora vent placed in the emergency department This present and connected to the atrium with continuous wall suction, without airleak Surgery ordered incentive spirometry and encourage use Increase activity as tolerated PT and OT referred by surgery 2. Acute hypoxic respiratory failure secondary to right-sided pneumothorax On arrival O2 sat 93% and 91.2% on ABG Hypoxia has resolved following resolution of pneumothorax on 3 L nasal cannula She is continuing to receive Symbicort, DuoNeb, Zithromax and prednisone; Zithromax discontinued on 01/17, Rocephin IV started - Another episode of hypoxic respiratory failure early on 01/17 lead to admission to ICU where right thoracostomy tube was placed by Dr. Rincon. - Continue chest tube with continuous wall suction - Chest X ray taken after the placement of the thoracostomy tube showed it present, without evidence of a pneumothorax. - Chest X ray (01/20) showed no sizable pneumothorax, the chest tube port may be outside of the chest, subcutaneous air noted along the right chest wall. Patchy density right lower lobe and to a lesser extent left lower lobe persist. 3. Chronic and ongoing tobacco dependence She continues to smoke and removes her oxygen due so She has been encouraged to stop, however has not been compliant 4. Oxygen dependent chronic COPD/emphysema Uses DuoNeb and fluticasonesalmeterol at home - Per pulmonology note from her stay 1 month ago she is inconsistent in using her medications Remains on 3 L nasal cannula at home Per pulmonology COPD is stable 5. Low BMI Patient's BMI estimated at 17.2 Poor dietary intake recorded, nutritional assessment by dietitian Per dietitian recommendations she will be given Ensure Enlive 3 times daily 6. Escherichia coli positive urinary tract infection UA completed on 01/17 showed urine turbid appearance, positive urine nitrates, greater than 182 urine WBCs, many urine WBC clumps, many urine bacteria Patient has been afebrile since arrival WBCs on labs drawn on 01/17 were elevated at 11.8, however on 01/18 were 6.7 - Zithromax 500 mg daily discontinued, patient started on Rocephin IV for 3 days Procalcitonin ordered; procalcitonin elevated at 0.13 - ESBL E. coli, Rocephin was stopped, patient was started on ertapenem on 01/19 Monitor vital signs Monitor oxygen levels Labs and medication were reviewed. Continue with symptomatic treatment. Resume home medication. Monitor labs and vitals. DVT and GI prophylaxis. Further recommendations as per clinical course of the patient Dictation was produced using [employer] dictation software. please excuse any grammatical, word or spelling errors. Dr. Gaby MD I have performed a history and physical examination and medical decision making of this patient, discussed the same with the the resident, and agree with the assessment and plan as written. I performed brief physical exam. Objective - Vital Signs Vital signs: Vital Signs Temp 98.2 F 01/21/24 02:00 Pulse 78 01/21/24 02:00 Resp 30 H 01/20/24 20:00 BP 161/74 01/21/24 02:00 Pulse Ox 97 01/21/24 02:00 FiO2 6 01/19/24 17:00 Intake & Output 01/20/24 01/21/24 01/21/24 18:59 06:59 18:59 Intake Total 790 100 Output Total 1055 610 Balance -265 -510 Weight 48 kg Intake: IV 500 Sodium Chloride 0.9% 1, 450 000 ml @ 75 mls/hr IV . [id number] [facility] Rx#:[id number] cefTRIAXone 1 gm In 50 Sodium Chloride 0.9% 50 ml @ 100 mls/hr IVPB Q24HR [facility] Rx#:[id number] Intake, IV Titration 50 100 Amount Ertapenem 1 gm In Sodium 50 Chloride 0.9% 50 ml @ 100 mls/hr IVPB DAILY [facility] Rx #:[id number] Magnesium Sulfate-D5w Pmx 100 1 gm In Dextrose/Water 1 100ml.bag @ 100 mls/hr IVPB ONCE ONE Rx#: [id number] Oral 240 Output: Chest Tube Drainage 10 Chest Tube Right 10 Urine 1055 600 Other: Voiding Method Indwelling Catheter Indwelling Catheter # Bowel Movements 1 - Labs CBC & Chem 7: 01/22/24 08:18 01/22/24 08:18 Labs: Microbiology - Last 24 Hours (Table) 01/18/24 06:05 Urine Culture - Final Urine,Catheterized Escherichia coli
--- NOTE | 2024-01-21 22:26 | P.CONS ---
History of Present Illness - Reason for Consult Consult date: 01/21/24 ESBL E. coli urinary tract infection Requesting physician: Celestina Mary - Chief Complaint Shortness of breath x few days - History of Present Illness Patient is a 74-year-old female with a past medical history significant for COPD hypertension anxiety depression current everyday smoker, patient presenting to the hospital 4 days ago for evaluation of increasing shortness of breath EMS was called and the patient was noted to be in significant distress tachypneic patient was brought into the hospital for further evaluation on presentation to the hospital patient was afebrile and no fever have been recorded subsequently patient was mildly tachycardic at 1 point subsequently resolved patient was hypoxic requiring supplemental oxygen, patient did have a chest x-ray with evidence of right-sided pneumothorax while the patient did require chest tube placement, patient is currently on 4 L nasal cannula patient did have a white count of 7.1 admission which is slightly up to 10.26 today creatinine has been normal liver isms, patient did have a significa ntly positive on 01/18/2024 with a urine culture positive for ESBL E. coli antibiotic was switched to Invanz yesterday infectious he was consulted for further management of antibiotic therapy patient currently denies having any fever or any chills patient is breathing slightly comfortably patient denies having any chest pain did have some cough no purulent sputum no nausea no vomiting no abdominal pain or diarrhea patient did have Carvajal catheter apparently has been placed during this admission as reported by nursing staff Review of Systems Positive point and negatives has been mentioned in the HPI, complete review of systems was performed and all other systems are negative Past Medical History Past Medical History: COPD, Hypertension Additional Past Medical History / Comment(s): [place] History of Any Multi-Drug Resistant Organisms: None Reported Past Surgical History: Section Additional Past Surgical History / Comment(s): vain stripping left leg Past Anesthesia/Blood Transfusion Reactions: No Reported Reaction Past Psychological History: Anxiety, Depression Smoking Status: Current every day smoker Past Alcohol Use History: None Reported Past Drug Use History: None Reported - Past Family History Mother Family Medical History: No Reported History Additional Family Medical History / Comment(s): at 80 years old of old age. Father Family Medical History: No Reported History Additional Family Medical History / Comment(s): at 85 years old of old age. Medications and Allergies Home Medications Medication Instructions Recorded Confirmed Type Folic Acid 1 mg PO DAILY #30 tablet 12/25/23 01/17/24 Rx Multivitamins, Thera [Multivitamin] 1 tab PO DAILY #30 tablet 12/25/23 01/17/24 Rx Thiamine [Vitamin B-1] 100 mg PO DAILY #30 tablet 12/25/23 01/17/24 Rx Acetaminophen [Tylenol] 650 mg PO Q6H PRN 01/17/24 01/17/24 History Cholecalciferol [Vitamin D3 (25 50 mcg PO DAILY 01/17/24 01/17/24 History Mcg = 1000 Iu)] Fluticasone Propion/Salmeterol 1 puff INHALATION RT-BID 01/17/24 01/17/24 History [Fluticasone-Salmeterol 250-50] Insulin Lispro See Protocol SQ ACHS 01/17/24 01/17/24 History Ipratropium-Albuterol Nebulize 3 ml INHALATION RT-Q4H 01/17/24 01/17/24 History [Duoneb 0.5 mg-3 mg/3 ml Soln] Allergies Allergy/AdvReac Type Severity Reaction Status Date / Time No Known Allergies Allergy Verified 01/17/24 08:33 Physical Exam Vitals: Vital Signs Temp Pulse Pulse Resp BP BP Pulse Ox 01/21/24 08:00 82 01/21/24 07:50 90 L 01/21/24 07:47 77 01/21/24 07:20 98.4 F 71 22 181/93 96 01/21/24 02:00 98.2 F 78 161/74 97 01/20/24 21:41 82 01/20/24 21:26 80 01/20/24 20:00 98.3 F 85 30 H 177/69 96 01/20/24 15:20 97.8 F 75 21 137/70 96 01/20/24 14:00 83 8 L 145/80 96 01/20/24 13:56 20 94 L 01/20/24 13:00 76 21 152/93 99 01/20/24 12:13 100 01/20/24 12:00 93 29 H 154/84 99 01/20/24 11:38 89 L 01/20/24 11:22 82 Intake and Output 07/21/24 07/22/24 07/22/24 22:59 06:59 14:59 Intake Total 100 Output Total 610 Balance -510 Intake: Intake, IV Titration 100 Amount Magnesium Sulfate-D5w Pmx 100 1 gm In Dextrose/Water 1 100ml.bag @ 100 mls/hr IVPB ONCE ONE Rx#: [id number] Output: Chest Tube Drainage 10 Chest Tube Right 10 Urine 600 Other: Voiding Method Indwelling Catheter Indwelling Catheter # Bowel Movements 1 1 Weight 48 kg GENERAL DESCRIPTION: Elderly female lying in bed, no distress. No tachypnea or accessory muscle of respiration use. HEENT: Shows Pallor , no scleral icterus. Oral mucous membrane is dry. No pharyngeal erythema or thrush NECK: Trachea central, no thyromegaly. LUNGS: Unlabored breathing. Coarse breath sounds bilaterally HEART: S1, S2, regular rate and rhythm. No loud murmur ABDOMEN: Soft, no tenderness , guarding or rigidity, no organomegaly EXTREMITIES: No edema of feet. SKIN: No rash, no masses palpable. NEUROLOGICAL: The patient is awake, alert,, mood and affect normal. Results CBC & Chem 7: 01/21/24 04:25 01/21/24 04:25 Labs: Abnormal Lab Results - Last 24 Hours (Table) 01/21/24 01/21/24 Range/Units 04:25 04:25 WBC 10.26 H (4.50-10.00) X 10*3/uL RBC 3.64 L (4.10-5.20) X 10*6/uL Hgb 10.5 L (12.0-15.0) g/dL Hct 33.3 L (37.2-46.3) % MCHC 31.5 L (32.0-37.0) g/dL RDW 16.4 H (11.5-14.5) % Neutrophils # 8.58 H (1.80-7.70) X 10*3/uL Creatinine 0.5 L (0.6-1.5) mg/dL BUN/Creatinine Ratio 30.20 H (12.00-20.00) Ratio Calcium 8.5 L (8.7-10.3) mg/dL Microbiology - Last 24 Hours (Table) 01/18/24 06:05 Urine Culture - Final Urine,Catheterized Escherichia coli Assessment and Plan (1) Infection due to ESBL-producing Escherichia coli Current Visit: Yes Status: Acute Code(s): A49.8 - OTHER BACTERIAL INFECTIONS OF UNSPECIFIED SITE; Z16.12 - EXTENDED SPECTRUM BETA LACTAMASE (ESBL) RESISTANCE SNOMED Code(s): 891914636 (2) UTI (urinary tract infection) Current Visit: No Status: Acute Code(s): N39.0 - URINARY TRACT INFECTION, SITE NOT SPECIFIED SNOMED Code(s): 35965735 Plan: 1patient with initial presentation to the hospital for increasing shortness of breath patient did have a significantly positive UA from urinary symptoms concerning for symptomatic urinary tract infection 2-nursing staff has been advised to change her Carvajal catheter obtain urine cult ure from the new Carvajal 3-Invanz 1 g daily to continue We will follow on clinical condition and cultures to further adjust medication if needed Thank you for this consultation we will follow the patient along with you Dictation was produced using [employer] dictation software. please excuse any grammatical, word or spelling errors. Time with Patient: Greater than 30
--- NOTE | 2024-01-22 08:07 | P.PN ---
Subjective Progress Note Date: 01/22/24 Principal diagnosis: Spontaneous right-sided pneumothorax, second occurrence, status post placement of thoravent. History of right-sided pneumothorax in April 2022, chronic hypo xemic respiratory failure on home oxygen, COPD, tobacco dependence, hypertension, frequent falls, depression Acute hypoxic respiratory failure secondary to increased right sided pneumothorax with significant subcutaneous emphysema, status post right thoracostomy tube placement by Dr. Rincon The patient was seen and examined this morning sitting up in bed on the medical surgical unit in no acute distress. She remains on 4 L nasal cannula with oxygen saturation in the high 90s. She appears comfortable. Her subcutaneous emphysema has improved significantly. Right-sided chest tube remains to water seal, no air leak present for 72 hours. Chest x-ray reviewed, no pneumothorax present, subcutaneous emphysema present but is less. Objective - Vital Signs Vital signs: Vital Signs Temp 98.3 F 01/22/24 07:20 Pulse 74 01/22/24 07:20 Resp 19 01/22/24 07:20 BP 161/100 01/22/24 07:20 Pulse Ox 98 01/22/24 00:39 FiO2 6 01/19/24 17:00 Intake & Output 01/21/24 01/22/24 01/22/24 18:59 06:59 18:59 Output Total 1700 350 Balance -1700 -350 Weight 48 kg 48 kg Output: Chest Tube Drainage 0 Chest Tube Right 0 Urine 1700 350 Other: Voiding Method Indwelling Catheter Indwelling Catheter # Bowel Movements 1 - Exam CONSTITUTIONAL: Awake and alert, no pain, no acute distress, appears very frail RESPIRATORY: Lungs sounds diminished bilaterally. Respirations even, slightly labored. Currently on 4 L nasal cannula with oxygen saturation 98%. Strong loose cough. Right anterior thoracostomy tube present to waterseal, no air leak present, total 50 mL serosanguineous drainage CARDIOVASCULAR: S1, S2 present. Regular rate and rhythm, sinus rhythm on telemetry. Palpable peripheral pulses bilaterally. No edema present GASTROINTESTINAL: Abdomen soft, nontender, nondistended without masses or organomegaly noted. There is no rebound or guarding present. Active bowel sounds present 4 quadrants. Positive bowel movement 01/20 GENITOURINARY: Carvajal present draining clear yellow urine INTEGUMENTARY: Skin is warm and dry NEUROLOGIC: Cranial nerves II through XII intact MUSKULOSKELETAL: Able to move all extremities PSYCHIATRIC: Alert and oriented to person, appears confused - Allied health notes Allied health notes reviewed: nursing - Labs CBC & Chem 7: 01/21/24 04:25 01/21/24 04:25 Labs: Abnormal Lab Results - Last 24 Hours (Table) 01/21/24 01/21/24 01/21/24 Range/Units 04:25 04:25 04:25 WBC 10.26 H (4.50-10.00) X 10*3/uL RBC 3.64 L (4.10-5.20) X 10*6/uL Hgb 10.5 L (12.0-15.0) g/dL Hct 33.3 L (37.2-46.3) % MCHC 31.5 L (32.0-37.0) g/dL RDW 16.4 H (11.5-14.5) % Neutrophils # 8.58 H (1.80-7.70) X 10*3/uL Creatinine 0.5 L (0.6-1.5) mg/dL BUN/Creatinine Ratio 30.20 H (12.00-20.00) Ratio Calcium 8.5 L (8.7-10.3) mg/dL NT-Pro-B Natriuret Pep 1033 H (0-450) pg/mL - Imaging and Cardiology Chest x-ray: image reviewed Assessment and Plan Assessment: Spontaneous right-sided pneumothorax, second occurrence, S/P thoravent by the ER physicians Acute hypoxic respiratory failure secondary to increased right PTX with sign ificant subq emphysema, S/P placement of right thoracostomy tube by Dr. Rincon History of right-sided pneumothorax in April 2022 Chronic hypoxemic respiratory failure on home oxygen COPD Tobacco dependence Hypertension Frequent falls Depression Plan: Chest tube clamped for a couple of hours. If no airleak when unclamped will discontinue CT Conservative management, no surgical intervention planned Wean oxygen as tolerated, encourage incentive spirometry, bronchodilat ors/steroids per pulmonology Will monitor daily CXR Increase activity as tolerated, PT/OT consulted Medical management of other comorbidities per internal medicine, pulmonology Poor prognosis, consider palliative care
--- NOTE | 2024-01-22 08:11 | XR ---
EXAMINATION TYPE: XR chest 1V portable DATE OF EXAM: 01/22/2024 HISTORY: Pneumothorax follow-up COMPARISON: 01/21/2024 TECHNIQUE: Single view of the chest is submitted. FINDINGS: Right-sided chest tube is unchanged in position. Sizable pneumothorax is not evident. Patchy basilar infiltrates persist. Blunting right costophrenic angle and to a lesser extent left costophrenic angle compatible with small effusions. Subcutaneous air along the right chest wall. Allograft The heart is stable. Hilar and mediastinal structures are within normal limits. Degenerative changes are seen of the dorsal spine. IMPRESSION: 1. Overall stable chest
[2024-01-22 08:44] LABS: Basophils % (A) 0 %; Eosinophils % (A) 0 %; HCT 35.8 % (34.0-46.0); HGB 11.5 gm/dL (11.4-16.0); Hypochromasia Slight; Lymphocytes # (A) 0.9 k/uL (1.0-4.8); Lymphocytes % (A) 11 %; MCH 29.1 pg (25.0-35.0); MCHC 32.1 g/dL (31.0-37.0); MCV 90.7 fL (80.0-100.0); Mean Platelet Volume 7.2; Monocytes # (A) 0.3 k/uL (0-1.0); Monocytes % (A) 4 %; Neutrophils # (A) 6.6 k/uL (1.3-7.7); Neutrophils % (A) 83 %; Platelet Count 338 k/uL (150-450); RBC 3.94 m/uL (3.80-5.40); RDW 15.5 % (11.5-15.5); WBC 7.9 k/uL (3.8-10.6)
[2024-01-22 09:18] LABS: ALT 8 U/L (4-34); AST 17 U/L (14-36); African American GFR (CKD) >90 (>60 ml/min/1.73 sqM); Albumin 2.9 g/dL (3.5-5.0); Albumin/Globulin Ratio 1.1; Alkaline Phosphatase 81 U/L (38-126); Anion Gap 3 mmol/L; Blood Urea Nitrogen 16 mg/dL (7-17); Calcium 8.6 mg/dL (8.4-10.2); Carbon Dioxide 31 mmol/L (22-30); Chloride 100 mmol/L (98-107); Globulin 2.6 g/dL; Glucose 109 mg/dL (74-99); Magnesium 1.7 mg/dL (1.6-2.3); Non-African American GFR(CKD) 88 (>60 ml/min/1.73 sqM); Potassium 3.7 mmol/L (3.5-5.1); Sodium 134 mmol/L (137-145); Total Bilirubin 0.2 mg/dL (0.2-1.3); Total Protein 5.5 g/dL (6.3-8.2)
[2024-01-22] MEDS: PANTOPRAZOLE 40 MG TABLET PO SCH (09:29)
--- NOTE | 2024-01-22 10:45 | P.PN ---
Subjective Progress Note Date: 01/22/24 Progress note dated January 19, 2024. 74-year-old female who was initially seen in consultation on January 16. She had a follow-up with no yesterday. Yesterday, because of a recurrent and more significant right-sided pneumothorax, a chest tube was placed. A 28 [place] chest tube was placed on the right side without difficulty. Currently, she is on Airvo, at 40 L/min with an FiO2 55%. She is getting saline at 75 cc an hour. The chest tube was noted to be in proper position on chest x-ray. There is no leak noted. The chest tube remains on suction. Cardiothoracic surgery is following the patient also. Current laboratory includes a white count 6.7, hemoglobin 11.1, hematocrit 35.7, and a normal platelet count. Sodium 140, potassium 4.5, chlorides 107, CO2 29, BUN 44, creatinine 0.69. Glucose is 123. Calcium 8.7. Urine is showing gram-negative bacilli. It has yet to be identified. The patient continues on Rocephin. Other important medications include Symbicort, and DuoNeb, as well as prednisone 40 mg. Progress note dated January 20, 2024. 74-year-old female seen initially in consultation on January 16. The patient was seen yesterday in the intensive care unit, and then again today in the intensive care unit. She is in room 254. She is doing much better today. She is down to 2 L of oxygen. She is getting saline at 75 cc an hour. Her urine shows gram- negative organisms, and she is currently on Rocephin. She is clinically feeling better. Her chest x-ray is stable. There is no air leak from the right side. Current labs include a white count 9.4, hemoglobin 9.9, hematocrit 32, and platelet count of 280,000. Sodium 141, potassium 3.7, chlorides 110, CO2 30, BUN 29, and creatinine 0.71. Procalcitonin level was 0.13. Urine was positive for Escherichia coli. It is an ESBL E. coli, and she will need to be switched to ertapenem. Chest x-ray stable. The patient is seen today January 21, 2024 in follow-up on the regular medical floor. She is currently sitting up in bed. Awake and alert in no acute distress. She is requiring 5 L/min per nasal cannula to maintain O2 saturations in the 90s. No IV fluids. Chest x-ray no sizable pneumothorax. Right-sided chest tube remains in place. Currently off suction and placed to waterseal. Basilar infiltrates persist right greater than left. Urine culture was positive for E. coli. White count 10.2. Hemoglobin 10.5. Platelets 289. Sodium 139. Potassium 3.5. Bicarb 28. BUN 15. Creatinine 0.5. Glucose 103. He is continued on DuoNeb ventilations, Symbicort. Antibiotics in the form of ertapenem. Heparin for DVT prophylaxis. The patient is seen today January 22, 2024 in follow-up on the regular medical floor. She is resting comfortably in bed. Awake and alert in no acute distress. She is maintaining O2 saturations in the 90s on 4 L/min per nasal cannula. Normal saline at KVO. Her chest tube was clamped this morning. Chest x-ray reveals right-sided chest tube in unchanged position. Sizable pneumot horax not evident. Patchy basilar infiltrates persist. Stable chest. Improving subcutaneous emphysema. Urine culture was positive for ESBL E. coli. WBC 7.9. Hemoglobin 11.5. Platelets 338. Sodium 134. Potassium 3.7. Bicarb 31. BUN 16. Creatinine 0.61. Glucose 109. She remains on DuoNeb inhalations, Symbicort. Antibiotics in the form of ertapenem. Objective - Vital Signs Vital signs: Vital Signs Temp 98.3 F 01/22/24 07:20 Pulse 72 01/22/24 09:33 Resp 19 01/22/24 07:20 BP 161/100 01/22/24 07:20 Pulse Ox 98 01/22/24 00:39 FiO2 6 01/19/24 17:00 Intake & Output 01/21/24 01/22/24 01/22/24 18:59 06:59 18:59 Output Total 1700 350 Balance -1700 -350 Weight 48 kg 48 kg Output: Chest Tube Drainage 0 Chest Tube Right 0 Urine 1700 350 Other: Voiding Method Indwelling Catheter Indwelling Catheter Indwelling Catheter # Bowel Movements 1 - Exam GENERAL EXAM: Alert, weak, frail 74-year-old female, on 4 L nasal cannula, comfortable in no distress. HEAD: Normocephalic. EYES: Normal reaction of pupils, equal size. NOSE: Clear with pink turbinates. THROAT: No erythema or exudates. NECK: No masses, no JVD. CHEST: No chest wall deformity. LUNGS: Equal air entry with basilar crackles right greater than left. Right- sided chest tube in place to waterseal. CVS: S1 and S2 normal with no audible murmur, regular rhythm. ABDOMEN: No hepatosplenomegaly, normal bowel sounds, no guarding or rigidity. SPINE: No scoliosis or deformity SKIN: No rashes CENTRAL NERVOUS SYSTEM: No focal deficits, tone is normal in all 4 extremities. EXTREMITIES: There is no peripheral edema. No clubbing, no cyanosis. Peripher al pulses are intact. - Labs CBC & Chem 7: 01/22/24 08:18 01/22/24 08:18 Labs: Abnormal Lab Results - Last 24 Hours (Table) 01/21/24 01/22/24 01/22/24 Range/Units 04:25 08:18 08:18 Lymphocytes # 0.9 L (1.0-4.8) k/uL Sodium 134 L (137-145) mmol/L Carbon Dioxide 31 H (22-30) mmol/L Glucose 109 H (74-99) mg/dL NT-Pro-B Natriuret Pep 1033 H (0-450) pg/mL Total Protein 5.5 L (6.3-8.2) g/dL Albumin 2.9 L (3.5-5.0) g/dL Assessment and Plan Assessment: Acute right-sided pneumothorax, initially treated with a Thora vent device, and now a 28 [place] chest tube, placed on waterseal 01/21/2024. Removed 01/22/2024 Acute hypoxemic respiratory failure secondary to COPD and right pneumothorax ESBL E. coli urinary tract infection. Currently on ertapenem Mental status changes, improved History of traumatic right-sided pneumothorax 2021 History of severe emphysema Ongoing tobacco use with nicotine addiction History of falls History of medication noncompliance Hypertension Plan: The patient was seen and evaluated Chest x-ray, labs and medications reviewed No evidence of pneumothorax Chest tube to be removed today Continue the current treatment plan Encourage increased use of the incentive spirometer This patient was seen independently by the pulmonary nurse practitioner addressing pulmonary issues I have personally seen and examined the patient, performed the documentation and the assessment and plan as written. Number of minutes spent on the visit: 23.
--- NOTE | 2024-01-22 14:45 | P.PN ---
Subjective Progress Note Date: 01/22/24 History of present illness; 74-year-old female presented to the emergency department with shortness of breath. Patient was brought to the emergency department by EMS, who reported they found her in significant distress sitting in the tripod position and tachypneic. Initial chest x-ray upon arriving in the emergency department showed the patient had a right-sided pneumothorax, for which she had a right-sided Thora vent placed. Following which pulmonology was consulted. Patient was found to be unable to give a great history, as a result of her dyspnea as well as elements of possible delirium or possible dementia. Her past medical history is significant for previous traumatic pneumothorax in April 2022, chronic hypoxemic respiratory failure on home oxygen, tobacco dependence and COPD for which she takes fluticasonesalmeterol and DuoNeb. Upon admission to the emergency department her oxygen saturation was 93 on BiPAP and respiratory rate was 30, currently is satting at 96% on 3 L nasal cannula. ABG completed this morning showed pCO2 of 59, pO2 59, HCO3 of 34, ABG O2 saturation of 91.2. Some difficulties in communicating/asking questions to the patient, due to either difficulty hearing or potentially not understanding, as the patient would occasionally answer questions that were not being asked. Patient did know she was in [place], however she was unaware of how she arrived to the hospital or that she had been in the emergency department. Initial lab work done in the ER showed CO2 of 31, BUN of 35 and a glucose of 200. CBC and CMP unremarkable. Troponin less than 0.012. NT proBNP 207. EKG done in the ER showed heart rate of 90, normal sinus rhythm, and possible left atrial enlargement and left ventricular hypertrophy. Initial chest x-ray done in the ER showed a right sided basal pneumothorax, along with trace bilateral pleural effusions and flattening of the diaphragms consistent with COPD. 01/17 - Patient seen at bedside in the ICU today, where she was moved early this morning as a result of worsening shortness of breath and increasing oxygen demand due to significant subcutaneous emphysema. She was placed on AirVo high flow nasal canulla and a right thoracostomy tube was placed by Dr. Rincon with re-expansion of the right lung, without evidence of a pneumothorax and subcutaneous emphysema throughout the thorax, per chest X ray this morning follo wing thoracostomy. She was initially placed on AirVo high flow nasal canulla, following use of a non re-breather, where she began at 55 LPM with an FiO2 of 90%, she has been weened to 45 LPM with an FiO2 of 80% as of this afternoon. When visiting bedside patient had just taken a Dilaudid and was resting in bed. Switched from Dilaudid to Toradol for pain control as the result of the grogginess caused on the Dilaudid. Patient had no current complaints. Labs drawn today - WBCs of 11.8, BUN of 46 01/18 -patient seen at bedside in the ICU today. She appears better today, more awake and very pleasant to interact with, she seems to have increased appetite as she had eaten most of her breakfast prior to my arrival. She states that she has no current complaints. Her visible subcutaneous emphysema above the right clavicle has improved significantly. Overnight patient was weaned on her high flow nasal cannula, presenting with an oxygen saturation of 98% receiving 45 LPM and an FiO2 of 60%. Currently she has been weaned further, having oxygen saturation 99% while receiving 40 LPM and FiO2 of 55%. Chest x-ray this morning (01/18) showed no evidence of pneumothorax, with a small right thoracotomy tube with subcutaneous gas throughout the thorax subcutaneous tissues. Labs drawn today - WBCs of 6.7, Hgb of 11.1, BUN of 44 01/20 - Patient seen at bedside today, she is no longer in the ICU. She looks more awake and alert today, and has continued to look a little better over the past couple of days. She states she is feeling better. When seen today she was sitting in her chair, as opposed on the bed. She is currently on 4 L nasal cannula saturating in the high 90s. Her visible subcutaneous emphysema has improved significantly. Sided chest tube remains to continuous wall suction, with no airleak present for 48 hours. Her chest x-ray showed no pneumothorax present, subcutaneous emphysema present but less, with some patchy density in the right lower lobe. 20 mg IV Lasix given, due to the patchiness possibly being a result of fluid accumulation. Her urine was positive for gram-negative organisms, Escherichia coli. Procalcitonin was elevated at 0.13. Indications are it is an ESBL E. coli, she has been switched from Rocephin to ertapenem. PT/OT consulted. Labs drawn today -WBCs 10.26, Hgb 10.5, Hct 33.3, Neutrophils 8.58, calcium 8.5 01/21 - Patient seen at bedside today. She is continue to look better, while still appearing quite frail, she has had much more energy and been excited to converse in the morning. Continues to state that she is feeling better with her breathing while remaining on 4 L nasal cannula and her last reported oxygen saturation was 98% on the 4 L nasal cannula. Her visible subcutaneous emphysema has improved significantly, has almost completely resolved. Right-sided chest tube remains connected to continuous wall suction, with no airleak present. Chest x-ray done this morning showed an overall stable chest following the administration of 20 mg IV Lasix yesterday. She continues receiving breathing treatments via her Symbicort inhaler and her DuoNeb. She continues to receive Toradol for pain. And continues receiving ertapenem IV. PT/OT both saw the patient yesterday, recommended daily treatments. PT/OT both consulted for daily treatment. Labs drawn today -WBCs 7.9, Hgb 11.5, Hct 35.8, sodium 134 Imaging done today - chest x-ray showing and overall stable chest. REVIEW .5,OF SYSTEMS: CONSTITUTIONAL: No fever, no malaise. CARDIOVASCULAR: No chest pain, no palpitations, no syncope. PULMONARY: No shortness of breath, no cough. GASTROINTESTINAL: As stated above. GENITOURINARY: Carv[place]al present draining clear yellow urine. NEUROLOGICAL: No headaches, no weakness, PHYSICAL EXAMINATION: GENERAL: Awake and alert, not in any acute distress. Very frail appearing. HEENT: Pupils are round and equally reacting to light. EOMI. No scleral icterus. No conjunctival pallor. Normocephalic, atraumatic. No pharyngeal erythema. No thyromegaly. CARDIOVASCULAR: S1 and S2 present. No murmurs, rubs, or gallops. PULMONARY: Diminished lung sounds on the right. On 4 L nasal cannula saturating in the high 90s. ThoraVent no longer present, right thoracostomy tube connected to continuous suction. ABDOMEN: Soft, nontender, nondistended, normoactive bowel sounds. No palpable organomegaly. MUSCULOSKELETAL: No joint swelling or deformity. EXTREMITIES: No edema, no cyanosis, or clubbing. NEUROLOGICAL: Gross neurological examination did not reveal any focal deficits. Alert and oriented, has continued appearing less confused. SKIN: No rashes. Assessment and plan 1. Right-sided basal pneumothorax Right-sided Thora vent placed in the emergency department This present and connected to the atrium with continuous wall suction, without airleak Surgery ordered incentive spirometry and encourage use Increase activity as tolerated PT and OT referred by surgery 2. Acute hypoxic respiratory failure secondary to right-sided pneumothorax On arrival O2 sat 93% and 91.2% on ABG Hypoxia has resolved following resolution of pneumothorax on 3 L nasal cannula She is continuing to receive Symbicort, DuoNeb, Zithromax and prednisone; Zithromax discontinued on 01/17, Rocephin IV started - Another episode of hypoxic respiratory failure early on 01/17 lead to admission to ICU where right thoracostomy tube was placed by Dr. Rincon. - Continue chest tube with continuous wall suction - Chest X ray taken after the placement of the thoracostomy tube showed it p resent, without evidence of a pneumothorax. - Chest X ray (01/20) showed no sizable pneumothorax, the chest tube port may be outside of the chest, subcutaneous air noted along the right chest wall. Patchy density right lower lobe and to a lesser extent left lower lobe persist. 3. Chronic and ongoing tobacco dependence She continues to smoke and removes her oxygen due so She has been encouraged to stop, however has not been compliant 4. Oxygen dependent chronic COPD/emphysema Uses DuoNeb and fluticasonesalmeterol at home - Per pulmonology note from her stay 1 month ago she is inconsistent in using her medications Remains on 3 L nasal cannula at home Per pulmonology COPD is stable 5. Low BMI, moderate protein calorie malnutrition Patient's BMI estimated at 17.2 Poor dietary intake recorded, nutritional assessment by dietitian Per dietitian recommendations she will be given Ensure Enlive 3 times daily 6. Escherichia coli positive urinary tract infection UA completed on 01/17 showed urine turbid appearance, positive urine nitrates, greater than 182 urine WBCs, many urine WBC clumps, many urine bacteria Patient has been afebrile since arrival WBCs on labs drawn on 01/17 were elevated at 11.8, however on 01/18 were 6.7 - Zithromax 500 mg daily discontinued, patient started on Rocephin IV for 3 days Procalcitonin ordered; procalcitonin elevated at 0.13 - ESBL E. coli, Rocephin was stopped, patient was started on ertapenem on 01/19 Monitor vital signs Monitor oxygen levels Monitor CBC Monitor CMP Labs and medication were reviewed. Continue with symptomatic treatment. Resume home medication. Monitor labs and vitals. DVT and GI prophylaxis. Further recommendations as per clinical course of the patient Dictation was produced using [employer] dictation software. please excuse any grammatical, word or spelling errors. Dr. Gaby MD I have performed a history and physical examination and medical decision making of this patient, discussed the same with the the resident, and agree with the assessment and plan as written. I performed brief physical exam. Objective - Vital Signs Vital signs: Vital Signs Temp 98.3 F 01/22/24 07:20 Pulse 74 01/22/24 07:20 Resp 19 01/22/24 07:20 BP 161/100 01/22/24 07:20 Pulse Ox 98 01/22/24 00:39 FiO2 6 01/19/24 17:00 Intake & Output 01/21/24 01/22/24 01/22/24 18:59 06:59 18:59 Output Total 1700 350 Balance -1700 -350 Weight 48 kg 48 kg Output: Chest Tube Drainage 0 Chest Tube Right 0 Urine 1700 350 Other: Voiding Method Indwelling Catheter Indwelling Catheter # Bowel Movements 1 - Labs CBC & Chem 7: 01/22/24 08:18 01/22/24 08:18 Labs: Abnormal Lab Results - Last 24 Hours (Table) 01/21/24 01/21/24 01/21/24 Range/Units 04:25 04:25 04:25 WBC 10.26 H (4.50-10.00) X 10*3/uL RBC 3.64 L (4.10-5.20) X 10*6/uL Hgb 10.5 L (12.0-15.0) g/dL Hct 33.3 L (37.2-46.3) % MCHC 31.5 L (32.0-37.0) g/dL RDW 16.4 H (11.5-14.5) % Neutrophils # 8.58 H (1.80-7.70) X 10*3/uL Creatinine 0.5 L (0.6-1.5) mg/dL BUN/Creatinine Ratio 30.20 H (12.00-20.00) Ratio Calcium 8.5 L (8.7-10.3) mg/dL NT-Pro-B Natriuret Pep 1033 H (0-450) pg/mL
--- NOTE | 2024-01-22 16:19 | P.PN ---
Subjective Progress Note Date: 01/22/24 Principal diagnosis: Reason for follow-up is ESBL E. coli urinary tract infection Patient is a 74-year-old female with a past medical history significant for COPD hypertension anxiety depression current everyday smoker, patient presenting to the hospital with increasing shortness of breath has been diagnosed with a pneumothorax status post right-sided chest tube also have a positive UA with urine culture positive for ESBL prompted this consultation. On today's evaluation that is 01/22/2024, the patient continues to be afebrile, the patient is on 4 L current oxygen and breathing comfortably, the Pt chest pain has decreased in intensity denies any worsening cough or sputum production no abdominal pain or diarrhea. The patient white count is 7.9, creatinine 0.61 Objective - Vital Signs Vital signs: Vital Signs Temp 98.9 F 01/22/24 12:20 Pulse 76 01/22/24 13:01 Resp 20 01/22/24 12:20 BP 153/78 01/22/24 12:20 Pulse Ox 93 L 01/22/24 12:20 FiO2 6 01/19/24 17:00 Intake & Output 01/21/24 01/22/24 01/22/24 18:59 06:59 18:59 Output Total 1700 350 Balance -1700 -350 Weight 48 kg 48 kg Output: Chest Tube Drainage 0 Chest Tube Right 0 Urine 1700 350 Other: Voiding Method Indwelling Catheter Indwelling Catheter Indwelling Catheter # Bowel Movements 1 - Exam GENERAL DESCRIPTION: An elderly female lying in bed in no distress RESPIRATORY SYSTEM: Unlabored breathing , decreased breath sounds at bases HEART: S1 S2 regular rate and rhythm , ABDOMEN: Soft , no tenderness EXTREMITIES: No edema feet - Labs CBC & Chem 7: 01/22/24 08:18 01/22/24 08:18 Labs: Abnormal Lab Results - Last 24 Hours (Table) 01/21/24 01/22/24 01/22/24 Range/Units 04:25 08:18 08:18 Lymphocytes # 0.9 L (1.0-4.8) k/uL Sodium 134 L (137-145) mmol/L Carbon Dioxide 31 H (22-30) mmol/L Glucose 109 H (74-99) mg/dL NT-Pro-B Natriuret Pep 1033 H (0-450) pg/mL Total Protein 5.5 L (6.3-8.2) g/dL Albumin 2.9 L (3.5-5.0) g/dL Assessment and Plan (1) Infection due to ESBL-producing Escherichia coli Current Visit: Yes Status: Acute Code(s): A49.8 - OTHER BACTERIAL INFECTIONS OF UNSPECIFIED SITE; Z16.12 - EXTENDED SPECTRUM BETA LACTAMASE (ESBL) RESISTANCE SNOMED Code(s): 639670908 (2) UTI (urinary tract infection) Current Visit: No Status: Acute Code(s): N39.0 - URINARY TRACT INFECTION, SITE NOT SPECIFIED SNOMED Code(s): 34426222 Plan: 1patient with initial presentation to the hospital for increasing shortness of breath patient did have a significantly positive UA from urinary symptoms concerning for symptomatic urinary tract infection 2-patient to continue with-Invanz 1 g daily and monitor clinical course closely Dictation was produced using [employer] dictation software. please excuse any grammatical, word or spelling errors.
--- NOTE | 2024-01-23 08:02 | XR ---
EXAMINATION TYPE: XR chest 1V portable DATE OF EXAM: 01/23/2024 COMPARISON: 01/22/2024 HISTORY: Chest tube removal TECHNIQUE: Frontal and lateral views of the chest are obtained. FINDINGS: Scattered senescent parenchymal changes noted. Hyperinflation compatible with COPD. Right-sided chest tube has been removed with recurrence of right-sided pneumothorax estimated at 20-2 5%. Apical pleural distance right upper lobe 1.6 cm, at the mid lung 8 mm and at the right lung base 2.6 cm. Patchy basilar infiltrates persist. Subcutaneous air diminished from prior study. Heart size is stable. Mediastinal structures are stable and grossly unremarkable. No evidence for hilar prominence. Degenerative changes dorsal spine. IMPRESSION: 1. Right-sided chest tube has been removed with recurrence of right-sided pneumothorax estimated at 2 0-25%. Apical pleural distance right upper lobe 1.6 cm, at the mid lung 8 mm and at the right lung ba se 2.6 cm. A Red level critical message alert has been initiated for Candie Simon via the [employer] Results System on 01/23/2024 7:59 AM. This message alert has been sent to Candie Simon via the [email or web address] provided by the clinician for the receipt of Radiology Critical Findings. Message ID [id number].
--- NOTE | 2024-01-23 09:47 | P.PN ---
Subjective Progress Note Date: 01/23/24 History of present illness; 74-year-old female presented to the emergency department with shortness of breath. Patient was brought to the emergency department by EMS, who reported they found her in significant distress sitting in the tripod position and tachypneic. Initial chest x-ray upon arriving in the emergency department showed the patient had a right-sided pneumothorax, for which she had a right-sided Thora vent placed. Following which pulmonology was consulted. Patient was found to be unable to give a great history, as a result of her dyspnea as well as elements of possible delirium or possible dementia. Her past medical history is significant for previous traumatic pneumothorax in April 2022, chronic hypoxemic respiratory failure on home oxygen, tobacco dependence and COPD for which she takes fluticasonesalmeterol and DuoNeb. Upon admission to the emergency department her oxygen saturation was 93 on BiPAP and respiratory rate was 30, currently is satting at 96% on 3 L nasal cannula. ABG completed this morning showed pCO2 of 59, pO2 59, HCO3 of 34, ABG O2 saturation of 91.2. Some difficulties in communicating/asking questions to the patient, due to either difficulty hearing or potentially not understanding, as the patient would occasionally answer questions that were not being asked. Patient did know she was in [place], however she was unaware of how she arrived to the hospital or that she had been in the emergency department. Initial lab work done in the ER showed CO2 of 31, BUN of 35 and a glucose of 200. CBC and CMP unremarkable. Troponin less than 0.012. NT proBNP 207. EKG done in the ER showed heart rate of 90, normal sinus rhythm, and possible left atrial enlargement and left ventricular hypertrophy. Initial chest x-ray done in the ER showed a right sided basal pneumothorax, along with trace bilateral pleural effusions and flattening of the diaphragms consistent with COPD. 01/17 - Patient seen at bedside in the ICU today, where she was moved early this morning as a result of worsening shortness of breath and increasing oxygen demand due to significant subcutaneous emphysema. She was placed on AirVo high flow nasal canulla and a right thoracostomy tube was placed by Dr. Rincon with re-expansion of the right lung, without evidence of a pneumothorax and subcutaneous emphysema throughout the thorax, per chest X ray this morning follo wing thoracostomy. She was initially placed on AirVo high flow nasal canulla, following use of a non re-breather, where she began at 55 LPM with an FiO2 of 90%, she has been weened to 45 LPM with an FiO2 of 80% as of this afternoon. When visiting bedside patient had just taken a Dilaudid and was resting in bed. Switched from Dilaudid to Toradol for pain control as the result of the grogginess caused on the Dilaudid. Patient had no current complaints. Labs drawn today - WBCs of 11.8, BUN of 46 01/18 -patient seen at bedside in the ICU today. She appears better today, more awake and very pleasant to interact with, she seems to have increased appetite as she had eaten most of her breakfast prior to my arrival. She states that she has no current complaints. Her visible subcutaneous emphysema above the right clavicle has improved significantly. Overnight patient was weaned on her high flow nasal cannula, presenting with an oxygen saturation of 98% receiving 45 LPM and an FiO2 of 60%. Currently she has been weaned further, having oxygen saturation 99% while receiving 40 LPM and FiO2 of 55%. Chest x-ray this morning (01/18) showed no evidence of pneumothorax, with a small right thoracotomy tube with subcutaneous gas throughout the thorax subcutaneous tissues. Labs drawn today - WBCs of 6.7, Hgb of 11.1, BUN of 44 01/20 - Patient seen at bedside today, she is no longer in the ICU. She looks more awake and alert today, and has continued to look a little better over the past couple of days. She states she is feeling better. When seen today she was sitting in her chair, as opposed on the bed. She is currently on 4 L nasal cannula saturating in the high 90s. Her visible subcutaneous emphysema has improved significantly. Sided chest tube remains to continuous wall suction, with no airleak present for 48 hours. Her chest x-ray showed no pneumothorax present, subcutaneous emphysema present but less, with some patchy density in the right lower lobe. 20 mg IV Lasix given, due to the patchiness possibly being a result of fluid accumulation. Her urine was positive for gram-negative organisms, Escherichia coli. Procalcitonin was elevated at 0.13. Indications are it is an ESBL E. coli, she has been switched from Rocephin to ertapenem. PT/OT consulted. Labs drawn today -WBCs 10.26, Hgb 10.5, Hct 33.3, Neutrophils 8.58, calcium 8.5 01/21 - Patient seen at bedside today. She is continue to look better, while still appearing quite frail, she has had much more energy and been excited to converse in the morning. Continues to state that she is feeling better with her breathing while remaining on 4 L nasal cannula and her last reported oxygen saturation was 98% on the 4 L nasal cannula. Her visible subcutaneous emphysema has improved significantly, has almost completely resolved. Right-sided chest tube remains connected to continuous wall suction, with no airleak present. Chest x-ray done this morning showed an overall stable chest following the administration of 20 mg IV Lasix yesterday. She continues receiving breathing treatments via her Symbicort inhaler and her DuoNeb. She continues to receive Toradol for pain. And continues receiving ertapenem IV. PT/OT both saw the patient yesterday, recommended daily treatments. PT/OT both consulted for daily treatment. Labs drawn today -WBCs 7.9, Hgb 11.5, Hct 35.8, sodium 134 Imaging done today - chest x-ray showing and overall stable chest. 01/22 - Patient seen at bedside today. She states that this morning she has had some increased difficulty breathing and that she is "just not feeling all that great". She was saturating at 91% on 4 L nasal cannula at 8:26 AM. Patient remains afebrile. Patient's chest tube was removed yesterday, 01/21, by surgery. Chest x-ray today shows chest tube has been removed and there is recurrence of right-sided pneumothorax estimated 2024%. Noting the apical pleural distance right upper lobe is 1.6 cm, at the mid lung 8 mm and at the right lung base 2.6 cm. Pulmonology continues to see the patient. as per infectious disease, the patient will continue with 1 g ertapenem daily. Patient will continue with her Symbicort and DuoNeb, as per pulmonology. Labs drawn today - ordered and currently pending at time of dictation. Imaging none today - chest x-ray showed right-sided chest tube has been removed with recurrence of right-sided pneumothorax estimating at 20-25%. Noting apical pleural distance right upper lobe 1.6 cm, at the mid lung 8 mm and at the right lung base 2.6 cm REVIEW 10.5,OF SYSTEMS: CONSTITUTIONAL: No fever, no malaise. CARDIOVASCULAR: No chest pain, no palpitations, no syncope. PULMONARY: No shortness of breath, no cough. GASTROINTESTINAL: As stated above. GENITOURINARY: Carvajal present draining clear yellow urine. NEUROLOGICAL: No headaches, no weakness, PHYSICAL EXAMINATION: GENERAL: Awake and alert, not in any acute distress. Very frail appearing. HEENT: Pupils are round and equally reacting to light. EOMI. No scleral icterus. No conjunctival pallor. Normocephalic, atraumatic. No pharyngeal erythema. No thyromegaly. CARDIOVASCULAR: S1 and S2 present. No murmurs, rubs, or gallops. PULMONARY: Equal air entry with some crackles noted on the right. On 4 L nasal cannula saturating in the high 90s. ABDOMEN: Soft, nontender, nondistended, normoactive bowel sounds. No palpable organomegaly. MUSCULOSKELETAL: No joint swelling or deformity. EXTREMITIES: No edema, no cyanosis, or clubbing. NEUROLOGICAL: Gross neurological examination did not reveal any focal deficits. Alert and oriented, has continued appearing less confused. SKIN: No rashes. Assessment and plan 1. Right-sided basal pneumothorax Right-sided Thora vent placed in the emergency department This present and connected to the atrium with continuous wall suction, without airleak Surgery ordered incentive spirometry and encourage use Increase activity as tolerated PT and OT referred by surgery PT and OT have been consulted to see the patient daily to help her build up strength 2. Acute hypoxic respiratory failure secondary to right-sided pneumothorax On arrival O2 sat 93% and 91.2% on ABG Hypoxia has resolved following resolution of pneumothorax on 3 L nasal cannula She is continuing to receive Symbicort, DuoNeb, Zithromax and prednisone; Zithromax discontinued on 01/17, Rocephin IV started - Another episode of hypoxic respiratory failure early on 01/17 lead to admission to ICU where right thoracostomy tube was placed by Dr. Rincon. - Continue chest tube with continuous wall suction - Chest X ray taken after the placement of the thoracostomy tube showed it present, without evidence of a pneumothorax. - Chest X ray (01/20) showed no sizable pneumothorax, the chest tube port may be outside of the chest, subcutaneous air noted along the right chest wall. Patchy density right lower lobe and to a lesser extent left lower lobe persist. Chest tube removed on 01/21 Chest x-ray on 01/22 noted that the chest tube had been removed and there was recurrence of right-sided pneumothorax estimating 20-25%. 3. Chronic and ongoing tobacco dependence She continues to smoke and removes her oxygen due so She has been encouraged to stop, however has not been compliant 4. Oxygen dependent chronic COPD/emphysema Uses DuoNeb and fluticasonesalmeterol at home - Per pulmonology note from her stay 1 month ago she is inconsistent in using her medications Remains on 3 L nasal cannula at home Per pulmonology COPD is stable 5. Low BMI Patient's BMI estimated at 17.2 Poor dietary intake recorded, nutritional assessment by dietitian Per dietitian recommendations she will be given Ensure Enlive 3 times daily 6. Escherichia coli positive urinary tract infection UA completed on 01/17 showed urine turbid appearance, positive urine nitrates, greater than 182 urine WBCs, many urine WBC clumps, many urine bacteria Patient has been afebrile since arrival WBCs on labs drawn on 01/17 were elevated at 11.8, however on 01/18 were 6.7 - Zithromax 500 mg daily discontinued, patient started on Rocephin IV for 3 days Procalcitonin ordered; procalcitonin elevated at 0.13 - ESBL E. coli, Rocephin was stopped, patient was started on ertapenem on 01/19 Monitor vital signs Monitor oxygen levels Monitor CBC Monitor CMP Labs and medication were reviewed. Continue with symptomatic treatment. Resume home medication. Monitor labs and vitals. DVT and GI prophylaxis. Further recommendations as per clinical course of the patient Dictation was produced using [employer] dictation software. please excuse any grammatical, word or spelling errors. Objective - Vital Signs Vital signs: Vital Signs Temp 98.0 F 01/23/24 01:20 Pulse 83 01/23/24 01:20 Resp 16 01/23/24 01:20 BP 147/78 01/23/24 01:20 Pulse Ox 99 01/23/24 01:20 FiO2 6 01/19/24 17:00 Intake & Output 01/22/24 01/23/24 01/23/24 18:59 06:59 18:59 Output Total 575 Balance -575 Output: Urine 575 Other: Voiding Method Indwelling Catheter Indwelling Catheter # Bowel Movements 1 - Labs CBC & Chem 7: 01/22/24 08:18 01/22/24 08:18 Labs: Abnormal Lab Results - Last 24 Hours (Table) 01/22/24 01/22/24 Range/Units 08:18 08:18 Lymphocytes # 0.9 L (1.0-4.8) k/uL Sodium 134 L (137-145) mmol/L Carbon Dioxide 31 H (22-30) mmol/L Glucose 109 H (74-99) mg/dL Total Protein 5.5 L (6.3-8.2) g/dL Albumin 2.9 L (3.5-5.0) g/dL
--- NOTE | 2024-01-23 10:46 | P.PN ---
Subjective Progress Note Date: 01/23/24 Progress note dated January 19, 2024. 74-year-old female who was initially seen in consultation on January 16. She had a follow-up with no yesterday. Yesterday, because of a recurrent and more significant right-sided pneumothorax, a chest tube was placed. A 28 Colombian chest tube was placed on the right side without difficulty. Currently, she is on Airvo, at 40 L/min with an FiO2 55%. She is getting saline at 75 cc an hour. The chest tube was noted to be in proper position on chest x-ray. There is no leak noted. The chest tube remains on suction. Cardiothoracic surgery is following the patient also. Current laboratory includes a white count 6.7, hemoglobin 11.1, hematocrit 35.7, and a normal platelet count. Sodium 140, potassium 4.5, chlorides 107, CO2 29, BUN 44, creatinine 0.69. Glucose is 123. Calcium 8.7. Urine is showing gram-negative bacilli. It has yet to be identified. The patient continues on Rocephin. Other important medications include Symbicort, and DuoNeb, as well as prednisone 40 mg. Progress note dated January 20, 2024. 74-year-old female seen initially in consultation on January 16. The patient was seen yesterday in the intensive care unit, and then again today in the intensive care unit. She is in room 254. She is doing much better today. She is down to 2 L of oxygen. She is getting saline at 75 cc an hour. Her urine shows gram- negative organisms, and she is currently on Rocephin. She is clinically feeling better. Her chest x-ray is stable. There is no air leak from the right side. Current labs include a white count 9.4, hemoglobin 9.9, hematocrit 32, and platelet count of 280,000. Sodium 141, potassium 3.7, chlorides 110, CO2 30, BUN 29, and creatinine 0.71. Procalcitonin level was 0.13. Urine was positive for Escherichia coli. It is an ESBL E. coli, and she will need to be switched to ertapenem. Chest x-ray stable. The patient is seen today January 21, 2024 in follow-up on the regular medical floor. She is currently sitting up in bed. Awake and alert in no acute distress. She is requiring 5 L/min per nasal cannula to maintain O2 saturations in the 90s. No IV fluids. Chest x-ray no sizable pneumothorax. Right-sided chest tube remains in place. Currently off suction and placed to waterseal. Basilar infiltrates persist right greater than left. Urine culture was positive for E. coli. White count 10.2. Hemoglobin 10.5. Platelets 289. Sodium 139. Potassium 3.5. Bicarb 28. BUN 15. Creatinine 0.5. Glucose 103. He is continued on DuoNeb ventilations, Symbicort. Antibiotics in the form of ertapenem. Heparin for DVT prophylaxis. The patient is seen today January 22, 2024 in follow-up on the regular medical floor. She is resting comfortably in bed. Awake and alert in no acute distress. She is maintaining O2 saturations in the 90s on 4 L/min per nasal cannula. Normal saline at KVO. Her chest tube was clamped this morning. Chest x-ray reveals right-sided chest tube in unchanged position. Sizable pneumot horax not evident. Patchy basilar infiltrates persist. Stable chest. Improving subcutaneous emphysema. Urine culture was positive for ESBL E. coli. WBC 7.9. Hemoglobin 11.5. Platelets 338. Sodium 134. Potassium 3.7. Bicarb 31. BUN 16. Creatinine 0.61. Glucose 109. She remains on DuoNeb inhalations, Symbicort. Antibiotics in the form of ertapenem. The patient is seen today January 23, 2024 in follow-up on the regular medical floor. She is sitting up in bed. Awake and alert in no acute distress. She is maintaining good O2 saturations in the 90s on 4 L/min per nasal cannula. Her chest tube was removed yesterday. Today's chest x-ray reveals a small 20 to 25% right apical pneumothorax. She denies any worsening shortness of breath, cough or congestion. She is working with the incentive spirometer. She is continued on DuoNeb inhalations, Symbicort. Urine culture positive for ESBL E. coli. Remains on antibiotics in the form of ertapenem. Heparin for DVT prophylaxis. No new labs today. Objective - Vital Signs Vital signs: Vital Signs Temp 99.1 F 01/23/24 07:10 Pulse 84 01/23/24 08:38 Resp 15 01/23/24 07:10 BP 149/83 01/23/24 07:10 Pulse Ox 91 L 01/23/24 08:26 FiO2 6 01/19/24 17:00 Intake & Output 01/22/24 01/23/24 01/23/24 18:59 06:59 18:59 Output Total 575 Balance -575 Output: Urine 575 Other: Voiding Method Indwelling Catheter Indwelling Catheter Indwelling Catheter # Bowel Movements 1 - Exam GENERAL EXAM: Alert, weak, frail 74-year-old female, sitting up in bed, on 4 L nasal cannula, comfortable in no distress. HEAD: Normocephalic. EYES: Normal reaction of pupils, equal size. NOSE: Clear with pink turbinates. THROAT: No erythema or exudates. NECK: No masses, no JVD. CHEST: No chest wall deformity. LUNGS: Equal air entry with basilar crackles right greater than left. Right- sided chest tube removed. CVS: S1 and S2 normal with no audible murmur, regular rhythm. ABDOMEN: No hepatosplenomegaly, normal bowel sounds, no guarding or rigidity. SPINE: No scoliosis or deformity SKIN: No rashes CENTRAL NERVOUS SYSTEM: No focal deficits, tone is normal in all 4 extremities. EXTREMITIES: There is no peripheral edema. No clubbing, no cyanosis. Peripheral pulses are intact. - Labs CBC & Chem 7: 01/22/24 08:18 01/22/24 08:18 Assessment and Plan Assessment: Acute right-sided pneumothorax, initially treated with a Thora vent device, and now a 28 Colombian chest tube, placed on waterseal 01/21/2024. Removed 01/22/2024 Acute hypoxemic respiratory failure secondary to COPD and right pneumothorax ESBL E. coli urinary tract infection. Currently on ertapenem Mental status changes, improved History of traumatic right-sided pneumothorax 2021 History of severe emphysema Ongoing tobacco use with nicotine addiction History of falls History of medication noncompliance Hypertension Plan: The patient was seen and evaluated Chest x-ray and medications reviewed Small right apical pneumothorax Titrate the FiO2 as tolerated Continue the current treatment plan Encourage increased use of the incentive spirometer Plan is for [facility] at discharge This patient was seen independently by the pulmonary nurse practitioner addressing pulmonary issues I have personally seen and examined the patient, performed the documentation and the assessment and plan as written. Number of minutes spent on the visit: 24.
[2024-01-23 10:57] LABS: BUN/Creat Ratio 27.67 Ratio (12.00-20.00); Blood Urea Nitrogen 16.6 mg/dL (9.0-27.0); Calcium 8.6 mg/dL (8.7-10.3); Carbon Dioxide 29.8 mmol/L (21.6-31.8); Chloride 99 mmol/L (96-109); Glucose 83 mg/dL (70-110); Magnesium 1.9 mg/dL (1.5-2.4); Potassium 4.5 mmol/L (3.5-5.5); Sodium 138 mmol/L (135-145)
[2024-01-23 10:59] LABS: Basophils # (A) 0.06 X 10*3/uL (0.00-0.10); Basophils % (A) 0.8 %; Eosinophils # (A) 0.21 X 10*3/uL (0.04-0.35); Eosinophils % (A) 2.9 %; HCT 36.3 % (37.2-46.3); HGB 11.2 g/dL (12.0-15.0); Immature Platelet Fraction 2.5 % (1.1-6.1); Lymphocytes # (A) 0.85 X 10*3/uL (0.90-5.00); Lymphocytes % (A) 11.8 %; MCH 28.1 pg (27.0-32.0); MCHC 30.9 g/dL (32.0-37.0); Mean Platelet Volume 10.4 FL (9.5-12.2); Monocytes # (A) 0.57 X 10*3/uL (0.20-1.00); Monocytes % (A) 7.9 %; NRBC Per 100 WBC 0 X 10*3/uL (0.00-0.01); Neutrophils # (A) 5.23 X 10*3/uL (1.80-7.70); Neutrophils % (A) 72.8 %; Platelet Count 319 X 10*3/uL (140-440); RBC 3.99 X 10*6/uL (4.10-5.20); RDW 16.4 % (11.5-14.5); WBC 7.19 X 10*3/uL (4.50-10.00)
--- NOTE | 2024-01-23 11:16 | P.PN ---
Subjective Progress Note Date: 01/23/24 Principal diagnosis: Spontaneous right-sided pneumothorax, second occurrence, status post placement of thoravent. History of right-sided pneumothorax in April 2022, chronic hypo xemic respiratory failure on home oxygen, COPD, tobacco dependence, hypertension, frequent falls, depression Acute hypoxic respiratory failure secondary to increased right sided pneumothorax with significant subcutaneous emphysema, status post right thoracostomy tube placement by Dr. Rincon The patient was seen and examined this morning sitting up in bed on the medical surgical unit in no acute distress. She remains on 4 L nasal cannula with oxygen saturation in the high 90s. She appears comfortable. Her subcutaneous emphysema has improved significantly. Right-sided chest tube discontinued yesterday. Chest x-ray reviewed. Objective - Vital Signs Vital signs: Vital Signs Temp 98.0 F 01/23/24 01:20 Pulse 83 01/23/24 01:20 Resp 16 01/23/24 01:20 BP 147/78 01/23/24 01:20 Pulse Ox 99 01/23/24 01:20 FiO2 6 01/19/24 17:00 Intake & Output 01/22/24 01/23/24 01/23/24 18:59 06:59 18:59 Output Total 575 Balance -575 Output: Urine 575 Other: Voiding Method Indwelling Catheter Indwelling Catheter # Bowel Movements 1 - Exam CONSTITUTIONAL: Awake and alert, no pain, no acute distress, appears very frail RESPIRATORY: Lungs sounds diminished bilaterally. Respirations even, slightly labored. Currently on 4 L nasal cannula with oxygen saturation 94%. Strong loose cough CARDIOVASCULAR: S1, S2 present. Regular rate and rhythm. Palpable peripheral pulses bilaterally GASTROINTESTINAL: Abdomen soft, nontender, nondistended without masses or organomegaly noted. There is no rebound or guarding present. Active bowel sounds present 4 quadrants. Positive bowel movement 01/21 GENITOURINARY: Carvajal present draining clear yellow urine INTEGUMENTARY: Skin is warm and dry NEUROLOGIC: Cranial nerves II through XII intact MUSKULOSKELETAL: Able to move all extremities PSYCHIATRIC: Alert and oriented to person, appears confused - Allied health notes Allied health notes reviewed: nursing - Labs CBC & Chem 7: 01/22/24 08:18 01/22/24 08:18 Labs: Abnormal Lab Results - Last 24 Hours (Table) 01/22/24 01/22/24 Range/Units 08:18 08:18 Lymphocytes # 0.9 L (1.0-4.8) k/uL Sodium 134 L (137-145) mmol/L Carbon Dioxide 31 H (22-30) mmol/L Glucose 109 H (74-99) mg/dL Total Protein 5.5 L (6.3-8.2) g/dL Albumin 2.9 L (3.5-5.0) g/dL - Imaging and Cardiology Chest x-ray: image reviewed Assessment and Plan Assessment: Spontaneous right-sided pneumothorax, second occurrence, S/P thoravent by the ER physicians Acute hypoxic respiratory failure secondary to increased right PTX with significant subq emphysema, S/P placement of right thoracostomy tube by Dr. Rincon History of right-sided pneumothorax in April 2022 Chronic hypoxemic respiratory failure on home oxygen COPD Tobacco dependence Hypertension Frequent falls Depression Plan: Conservative management at this time, no surgical intervention planned although will continue to follow patient. If pneumothorax gets worse patient may need talc pleurodesis Wean oxygen as tolerated, encourage incentive spirometry, bronchodilators/steroids per pulmonology Will monitor daily CXR Increase activity as tolerated, PT/OT consulted Medical management of other comorbidities per internal medicine, pulmonology Poor prognosis, consider palliative care Will continue to monitor
--- NOTE | 2024-01-24 07:37 | XR ---
EXAMINATION TYPE: XR chest 1V portable DATE OF EXAM: 01/24/2024 HISTORY: Pneumothorax follow-up COMPARISON: 01/23/2024 TECHNIQUE: Single view of the chest is submitted. FINDINGS: Demonstrated are scattered senescent parenchymal change. Persistent right-sided pneumothorax estimated at 25%. Apical pleural component at the right lung base measures 2.2 cm versus 1.6 cm previously. At the right lung base seen pneumothorax measures 2.1 cm v ersus 2.6 cm at the mid lung 1.2 cm versus 8 mm. At the mid lung apical pleural. Persistent right lower lobe infiltrate. Improving subcutaneous air. Hilar and mediastinal structures are within normal limits. Degenerative changes are seen of the dorsal spine. IMPRESSION: 1. Slight progression of right-sided pneumothorax estimated at approximately 25%
--- NOTE | 2024-01-24 09:30 | P.PN ---
Subjective Progress Note Date: 01/24/24 Principal diagnosis: Spontaneous right-sided pneumothorax, second occurrence, status post placement of thoravent. History of right-sided pneumothorax in April 2022, chronic hypo xemic respiratory failure on home oxygen, COPD, tobacco dependence, hypertension, frequent falls, depression Acute hypoxic respiratory failure secondary to increased right sided pneumothorax with significant subcutaneous emphysema, status post right thoracostomy tube placement by Dr. Rincon The patient was seen and examined this morning sitting up in bed on the medical surgical unit in no acute distress. Currently 7 L nasal cannula with oxygen saturation in the mid 90s, her oxygen needs have continued to fluctuate even when her lung was expanded with the chest tube in. She appears comfortable. Her subcutaneous emphysema has improved significantly. Right-sided chest tube discontinued 2 days age, daily chest x-ray reviewed, appears worse the last 2 days. Will ask IR to place pigtail and place to suction to allow lung to expand. Patient may need talc instillation. Objective - Vital Signs Vital signs: Vital Signs Temp 98.3 F 01/24/24 07:08 Pulse 72 01/24/24 08:19 Resp 16 01/24/24 07:08 BP 155/90 01/24/24 07:08 Pulse Ox 97 01/24/24 09:02 FiO2 44 01/24/24 08:03 Intake & Output 01/23/24 01/24/24 01/24/24 18:59 06:59 18:59 Output Total 480 280 Balance -480 -280 Weight 47.5 kg Output: Urine 480 280 Uretheral (Carvajal) 280 Other: Voiding Method Indwelling Catheter Indwelling Catheter - Exam CONSTITUTIONAL: Awake and alert, no pain, no acute distress, appears very frail RESPIRATORY: Lungs sounds diminished bilaterally, right greater than left. Respirations even, slightly labored. Currently on 7 L nasal cannula with oxygen saturation 93%. Strong loose cough CARDIOVASCULAR: S1, S2 present. Regular rate and rhythm. Palpable peripheral pulses bilaterally GASTROINTESTINAL: Abdomen soft, nontender, nondistended without masses or organomegaly noted. There is no rebound or guarding present. Active bowel sounds present 4 quadrants. Positive bowel movement 01/21 GENITOURINARY: Carvajal present draining clear yellow urine INTEGUMENTARY: Skin is warm and dry NEUROLOGIC: Cranial nerves II through XII intact MUSKULOSKELETAL: Able to move all extremities PSYCHIATRIC: Alert and oriented to person, appears confused, very [place] - Allied health notes Allied health notes reviewed: nursing - Labs CBC & Chem 7: 01/23/24 07:21 01/23/24 07:21 Labs: Abnormal Lab Results - Last 24 Hours (Table) 01/23/24 01/23/24 Range/Units 07:21 07:21 RBC 3.99 L (4.10-5.20) X 10*6/uL Hgb 11.2 L (12.0-15.0) g/dL Hct 36.3 L (37.2-46.3) % MCHC 30.9 L (32.0-37.0) g/dL RDW 16.4 H (11.5-14.5) % Immature Gran # 0.27 H (0.00-0.04) X 10*3/uL Lymphocytes # 0.85 L (0.90-5.00) X 10*3/uL BUN/Creatinine Ratio 27.67 H (12.00-20.00) Ratio Calcium 8.6 L (8.7-10.3) mg/dL - Imaging and Cardiology Chest x-ray: report reviewed, image reviewed Assessment and Plan Assessment: Spontaneous right-sided pneumothorax, second occurrence, S/P thoravent by the ER physicians Acute hypoxic respiratory failure secondary to increased right PTX with significant subq emphysema, S/P placement of right thoracostomy tube by Dr. Rincon History of right-sided pneumothorax in April 2022 Chronic hypoxemic respiratory failure on home oxygen COPD Tobacco dependence Hypertension Frequent falls Depression Plan: Will have IR place pigtail and place to continuous wall suction. Once lung has expanded if there is no air leak we will add talc. If air leak present will continue to monitor Wean oxygen as tolerated, encourage incentive spirometry, bronchodilators/ steroids per pulmonology Will monitor daily CXR Increase activity as tolerated, PT/OT consulted Medical management of other comorbidities per internal medicine, pulmonology Poor prognosis, consider palliative care Will continue to monitor
--- NOTE | 2024-01-24 12:26 | P.PN ---
Subjective Progress Note Date: 01/24/24 Progress note dated January 19, 2024. 74-year-old female who was initially seen in consultation on January 16. She had a follow-up with no yesterday. Yesterday, because of a recurrent and more significant right-sided pneumothorax, a chest tube was placed. A 28 Taiwanese chest tube was placed on the right side without difficulty. Currently, she is on Airvo, at 40 L/min with an FiO2 55%. She is getting saline at 75 cc an hour. The chest tube was noted to be in proper position on chest x-ray. There is no leak noted. The chest tube remains on suction. Cardiothoracic surgery is following the patient also. Current laboratory includes a white count 6.7, hemoglobin 11.1, hematocrit 35.7, and a normal platelet count. Sodium 140, potassium 4.5, chlorides 107, CO2 29, BUN 44, creatinine 0.69. Glucose is 123. Calcium 8.7. Urine is showing gram-negative bacilli. It has yet to be identified. The patient continues on Rocephin. Other important medications include Symbicort, and DuoNeb, as well as prednisone 40 mg. Progress note dated January 20, 2024. 74-year-old female seen initially in consultation on January 16. The patient was seen yesterday in the intensive care unit, and then again today in the intensive care unit. She is in room 254. She is doing much better today. She is down to 2 L of oxygen. She is getting saline at 75 cc an hour. Her urine shows gram- negative organisms, and she is currently on Rocephin. She is clinically feeling better. Her chest x-ray is stable. There is no air leak from the right side. Current labs include a white count 9.4, hemoglobin 9.9, hematocrit 32, and platelet count of 280,000. Sodium 141, potassium 3.7, chlorides 110, CO2 30, BUN 29, and creatinine 0.71. Procalcitonin level was 0.13. Urine was positive for Escherichia coli. It is an ESBL E. coli, and she will need to be switched to ertapenem. Chest x-ray stable. The patient is seen today January 21, 2024 in follow-up on the regular medical floor. She is currently sitting up in bed. Awake and alert in no acute distress. She is requiring 5 L/min per nasal cannula to maintain O2 saturations in the 90s. No IV fluids. Chest x-ray no sizable pneumothorax. Right-sided chest tube remains in place. Currently off suction and placed to waterseal. Basilar infiltrates persist right greater than left. Urine culture was positive for E. coli. White count 10.2. Hemoglobin 10.5. Platelets 289. Sodium 139. Potassium 3.5. Bicarb 28. BUN 15. Creatinine 0.5. Glucose 103. He is continued on DuoNeb ventilations, Symbicort. Antibiotics in the form of ertapenem. Heparin for DVT prophylaxis. The patient is seen today January 22, 2024 in follow-up on the regular medical floor. She is resting comfortably in bed. Awake and alert in no acute distress. She is maintaining O2 saturations in the 90s on 4 L/min per nasal cannula. Normal saline at KVO. Her chest tube was clamped this morning. Chest x-ray reveals right-sided chest tube in unchanged position. Sizable pneumot horax not evident. Patchy basilar infiltrates persist. Stable chest. Improving subcutaneous emphysema. Urine culture was positive for ESBL E. coli. WBC 7.9. Hemoglobin 11.5. Platelets 338. Sodium 134. Potassium 3.7. Bicarb 31. BUN 16. Creatinine 0.61. Glucose 109. She remains on DuoNeb inhalations, Symbicort. Antibiotics in the form of ertapenem. The patient is seen today January 23, 2024 in follow-up on the regular medical floor. She is sitting up in bed. Awake and alert in no acute distress. She is maintaining good O2 saturations in the 90s on 4 L/min per nasal cannula. Her chest tube was removed yesterday. Today's chest x-ray reveals a small 20 to 25% right apical pneumothorax. She denies any worsening shortness of breath, cough or congestion. She is working with the incentive spirometer. She is continued on DuoNeb inhalations, Symbicort. Urine culture positive for ESBL E. coli. Remains on antibiotics in the form of ertapenem. Heparin for DVT prophylaxis. No new labs today. The patient is seen today January 24, 2024 in follow-up on the regular medical floor. She is currently resting in bed. Awake and alert in no acute distress. She is requiring 7 L high flow nasal cannula to maintain O2 saturations in the 90s. She has normal staying at KVO. She denies any worsening shortness of breath, cough or congestion. Unfortunately her chest x-ray shows slight progression of the right-sided pneumothorax estimated at 25% and increased laterally. Persistent right upper lobe infiltrate. Improving subcutaneous air. The plan now is for a pigtail catheter insertion per interventional radiology. Urine culture was positive for ESBL E. coli. She remains on ertapenem. Continued on DuoNeb inhalations, Symbicort. Heparin for DVT prophylaxis. Objective - Vital Signs Vital signs: Vital Signs Temp 98.3 F 01/24/24 07:08 Pulse 74 01/24/24 11:00 Resp 20 01/24/24 11:00 BP 123/75 01/24/24 11:00 Pulse Ox 87 L 01/24/24 11:00 FiO2 44 01/24/24 08:03 Intake & Output 01/23/24 01/24/24 01/24/24 18:59 06:59 18:59 Output Total 480 280 Balance -480 -280 Weight 47.5 kg Output: Urine 480 280 Uretheral (Carvajal) 280 Other: Voiding Method Indwelling Catheter Indwelling Catheter - Exam GENERAL EXAM: Alert, frail 74-year-old female, sitting up in bed, on 7 L nasal cannula, comfortable in no distress. HEAD: Normocephalic. EYES: Normal reaction of pupils, equal size. NOSE: Clear with pink turbinates. THROAT: No erythema or exudates. NECK: No masses, no JVD. CHEST: No chest wall deformity. LUNGS: Equal air entry with basilar crackles right greater than left. Right- sided chest tube removed. CVS: S1 and S2 normal with no audible murmur, regular rhythm. ABDOMEN: No hepatosplenomegaly, normal bowel sounds, no guarding or rigidity. SPINE: No scoliosis or deformity SKIN: No rashes CENTRAL NERVOUS SYSTEM: No focal deficits, tone is normal in all 4 extremities. EXTREMITIES: There is no peripheral edema. No clubbing, no cyanosis. Peripheral pulses are intact. - Labs CBC & Chem 7: 01/23/24 07:21 01/23/24 07:21 Assessment and Plan Assessment: Acute right-sided pneumothorax, initially treated with a Thora vent device, and now a 28 Taiwanese chest tube, placed on waterseal 01/21/2024. Removed 01/22/2024. Increasing pneumothorax on 01/24/2024 with plans for pigtail catheter placement Acute hypoxemic respiratory failure secondary to COPD and right pneumothorax ESBL E. coli urinary tract infection. Currently on ertapenem Mental status changes, improved History of traumatic right-sided pneumothorax 2021 History of severe emphysema Ongoing tobacco use with nicotine addiction History of falls History of medication noncompliance Hypertension Plan: The patient was seen and evaluated Chest x-ray and medications reviewed Increasing right apical pneumothorax Plan is for pigtail catheter placement today Titrate the FiO2 as tolerated Continue the current treatment plan Encourage increased use of the incentive spirometer We will continue to follow This patient was seen independently by the pulmonary nurse practitioner addressing pulmonary issues I have personally seen and examined the patient, performed the documentation and the assessment and plan as written. Number of minutes spent on the visit: 25.
--- NOTE | 2024-01-24 12:58 | P.PN ---
Subjective Progress Note Date: 01/24/24 History of present illness; 74-year-old female presented to the emergency department with shortness of breath. Patient was brought to the emergency department by EMS, who reported they found her in significant distress sitting in the tripod position and tachypneic. Initial chest x-ray upon arriving in the emergency department showed the patient had a right-sided pneumothorax, for which she had a right-sided Thora vent placed. Following which pulmonology was consulted. Patient was found to be unable to give a great history, as a result of her dyspnea as well as elements of possible delirium or possible dementia. Her past medical history is significant for previous traumatic pneumothorax in April 2022, chronic hypoxemic respiratory failure on home oxygen, tobacco dependence and COPD for which she takes fluticasonesalmeterol and DuoNeb. Upon admission to the emergency department her oxygen saturation was 93 on BiPAP and respiratory rate was 30, currently is satting at 96% on 3 L nasal cannula. ABG completed this morning showed pCO2 of 59, pO2 59, HCO3 of 34, ABG O2 saturation of 91.2. Some difficulties in communicating/asking questions to the patient, due to either difficulty hearing or potentially not understanding, as the patient would occasionally answer questions that were not being asked. Patient did know she was in [place], however she was unaware of how she arrived to the hospital or that she had been in the emergency department. Initial lab work done in the ER showed CO2 of 31, BUN of 35 and a glucose of 200. CBC and CMP unremarkable. Troponin less than 0.012. NT proBNP 207. EKG done in the ER showed heart rate of 90, normal sinus rhythm, and possible left atrial enlargement and left ventricular hypertrophy. Initial chest x-ray done in the ER showed a right sided basal pneumothorax, along with trace bilateral pleural effusions and flattening of the diaphragms consistent with COPD. 01/17 - Patient seen at bedside in the ICU today, where she was moved early this morning as a result of worsening shortness of breath and increasing oxygen demand due to significant subcutaneous emphysema. She was placed on AirVo high flow nasal canulla and a right thoracostomy tube was placed by Dr. Rincon with re-expansion of the right lung, without evidence of a pneumothorax and subcutaneous emphysema throughout the thorax, per chest X ray this morning follo wing thoracostomy. She was initially placed on AirVo high flow nasal canulla, following use of a non re-breather, where she began at 55 LPM with an FiO2 of 90%, she has been weened to 45 LPM with an FiO2 of 80% as of this afternoon. When visiting bedside patient had just taken a Dilaudid and was resting in bed. Switched from Dilaudid to Toradol for pain control as the result of the grogginess caused on the Dilaudid. Patient had no current complaints. Labs drawn today - WBCs of 11.8, BUN of 46 01/18 -patient seen at bedside in the ICU today. She appears better today, more awake and very pleasant to interact with, she seems to have increased appetite as she had eaten most of her breakfast prior to my arrival. She states that she has no current complaints. Her visible subcutaneous emphysema above the right clavicle has improved significantly. Overnight patient was weaned on her high flow nasal cannula, presenting with an oxygen saturation of 98% receiving 45 LPM and an FiO2 of 60%. Currently she has been weaned further, having oxygen saturation 99% while receiving 40 LPM and FiO2 of 55%. Chest x-ray this morning (01/18) showed no evidence of pneumothorax, with a small right thoracotomy tube with subcutaneous gas throughout the thorax subcutaneous tissues. Labs drawn today - WBCs of 6.7, Hgb of 11.1, BUN of 44 01/20 - Patient seen at bedside today, she is no longer in the ICU. She looks more awake and alert today, and has continued to look a little better over the past couple of days. She states she is feeling better. When seen today she was sitting in her chair, as opposed on the bed. She is currently on 4 L nasal cannula saturating in the high 90s. Her visible subcutaneous emphysema has improved significantly. Sided chest tube remains to continuous wall suction, with no airleak present for 48 hours. Her chest x-ray showed no pneumothorax present, subcutaneous emphysema present but less, with some patchy density in the right lower lobe. 20 mg IV Lasix given, due to the patchiness possibly being a result of fluid accumulation. Her urine was positive for gram-negative organisms, Escherichia coli. Procalcitonin was elevated at 0.13. Indications are it is an ESBL E. coli, she has been switched from Rocephin to ertapenem. PT/OT consulted. Labs drawn today -WBCs 10.26, Hgb 10.5, Hct 33.3, Neutrophils 8.58, calcium 8.5 01/21 - Patient seen at bedside today. She is continue to look better, while still appearing quite frail, she has had much more energy and been excited to converse in the morning. Continues to state that she is feeling better with her breathing while remaining on 4 L nasal cannula and her last reported oxygen saturation was 98% on the 4 L nasal cannula. Her visible subcutaneous emphysema has improved significantly, has almost completely resolved. Right-sided chest tube remains connected to continuous wall suction, with no airleak present. Chest x-ray done this morning showed an overall stable chest following the administration of 20 mg IV Lasix yesterday. She continues receiving breathing treatments via her Symbicort inhaler and her DuoNeb. She continues to receive Toradol for pain. And continues receiving ertapenem IV. PT/OT both saw the patient yesterday, recommended daily treatments. PT/OT both consulted for daily treatment. Labs drawn today -WBCs 7.9, Hgb 11.5, Hct 35.8, sodium 134 Imaging done today - chest x-ray showing and overall stable chest. 01/22 - Patient seen at bedside today. She states that this morning she has had some increased difficulty breathing and that she is "just not feeling all that great". She was saturating at 91% on 4 L nasal cannula at 8:26 AM. Patient remains afebrile. Patient's chest tube was removed yesterday, 01/21, by surgery. Chest x-ray today shows chest tube has been removed and there is recurrence of right-sided pneumothorax estimated 2024%. Noting the apical pleural distance right upper lobe is 1.6 cm, at the mid lung 8 mm and at the right lung base 2.6 cm. Pulmonology continues to see the patient. as per infectious disease, the patient will continue with 1 g ertapenem daily. Patient will continue with her Symbicort and DuoNeb, as per pulmonology. Labs drawn today - ordered and currently pending at time of dictation. Imaging done today - chest x-ray showed right-sided chest tube has been removed with recurrence of right-sided pneumothorax estimating at 20-25%. Noting apical pleural distance right upper lobe 1.6 cm, at the mid lung 8 mm and at the right lung base 2.6 cm 01/23 - Patient seen at bedside today. Earlier this morning patient had episodes of her saturations dropping into the 80s, throughout various increases in the amount of oxygen through nasal cannula. She is currently on 7 L nasal cannula with saturation in her mid 90s. She has endured some of these similar fluctuations even during the time in which her chest tube was then. When seen her this morning she had a appears comfortable, and does not have any current complaints. Subcutaneous emphysema which was present above her right clavicle has improved significantly, is not noticeable. Unfortunately her x-ray over the last couple of days have shown the recurrence of right-sided pneumothorax, today estimated at approximately 25%. Plan is for IR to place a pigtail put on wall suction to help lung expand. Labs drawn today - none. Imaging done today -chest x-ray done today showed slight progression of right- sided pneumothorax estimated approximately 25%. REVIEW 10.5,OF SYSTEMS: CONSTITUTIONAL: No fever, no malaise. CARDIOVASCULAR: No chest pain, no palpitations, no syncope. PULMONARY: No shortness of breath, no cough. GASTROINTESTINAL: As stated above. GENITOURINARY: Carvajal present draining clear yellow urine. NEUROLOGICAL: No headaches, no weakness, PHYSICAL EXAMINATION: GENERAL: Awake and alert, not in any acute distress. Very frail appearing. HEENT: Pupils are round and equally reacting to light. EOMI. No scleral icterus. No conjunctival pallor. Normocephalic, atraumatic. No pharyngeal erythema. No thyromegaly. CARDIOVASCULAR: S1 and S2 present. No murmurs, rubs, or gallops. PULMONARY: Equal air entry with some crackles noted on the right. On 7 L nasal cannula with oxygen saturation 93%. ABDOMEN: Soft, nontender, nondistended, normoactive bowel sounds. No palpable organomegaly. MUSCULOSKELETAL: No joint swelling or deformity. EXTREMITIES: No edema, no cyanosis, or clubbing. NEUROLOGICAL: Gross neurological examination did not reveal any focal deficits. Alert and oriented, has continued appearing less confused. SKIN: No rashes. Assessment and plan 1. Right-sided basal pneumothorax Right-sided Thora vent placed in the emergency department This present and connected to the atrium with continuous wall suction, without airleak Surgery ordered incentive spirometry and encourage use Increase activity as tolerated PT and OT referred by surgery PT and OT have been consulted to see the patient daily to help her build up strength 2. Acute hypoxic respiratory failure secondary to right-sided pneumothorax On arrival O2 sat 93% and 91.2% on ABG Hypoxia has resolved following resolution of pneumothorax on 3 L nasal cannula She is continuing to receive Symbicort, DuoNeb, Zithromax and prednisone; Zithromax discontinued on 01/17, Rocephin IV started - Another episode of hypoxic respiratory failure early on 01/17 lead to admission to ICU where right thoracostomy tube was placed by Dr. Rincon. - Continue chest tube with continuous wall suction - Chest X ray taken after the placement of the thoracostomy tube showed it present, without evidence of a pneumothorax. - Chest X ray (01/20) showed no sizable pneumothorax, the chest tube port may be outside of the chest, subcutaneous air noted along the right chest wall. Patchy density right lower lobe and to a lesser extent left lower lobe persist. Chest tube removed on 01/21 Chest x-ray on 01/22 noted that the chest tube had been removed and there was recurrence of right-sided pneumothorax estimating 20-25%. Patient's saturations have fluctuated this morning on varying amounts of oxygen. Currently on 7 L nasal cannula saturating at 93%. Chest x-ray on 724 noted right-sided pneumothorax progression estimated 25%. Plan is currently for IR to place a pigtail catheter 3. Chronic and ongoing tobacco dependence She continues to smoke and removes her oxygen due so She has been encouraged to stop, however has not been compliant 4. Oxygen dependent chronic COPD/emphysema Uses DuoNeb and fluticasonesalmeterol at home - Per pulmonology note from her stay 1 month ago she is inconsistent in using her medications Remains on 3 L nasal cannula at home Per pulmonology COPD is stable 5. Low BMI Patient's BMI estimated at 17.2 Poor dietary intake recorded, nutritional assessment by dietitian Per dietitian recommendations she will be given Ensure Enlive 3 times daily 6. Escherichia coli positive urinary tract infection UA completed on 01/17 showed urine turbid appearance, positive urine nitrates, greater than 182 urine WBCs, many urine WBC clumps, many urine bacteria Patient has been afebrile since arrival WBCs on labs drawn on 01/17 were elevated at 11.8, however on 01/18 were 6.7 - Zithromax 500 mg daily discontinued, patient started on Rocephin IV for 3 days Procalcitonin ordered; procalcitonin elevated at 0.13 - ESBL E. coli, Rocephin was stopped, patient was started on ertapenem on 01/19 Monitor vital signs Monitor oxygen levels Monitor CBC Monitor CMP Labs and medication were reviewed. Continue with symptomatic treatment. Resume home medication. Monitor labs and vitals. DVT and GI prophylaxis. Further recommendations as per clinical course of the patient Patient seen and evaluated by me independently. Patient was also seen by resident, the original author of this note. I am in agreement with the subjective, physical exam, and assessment and plan as documented with the addition/changes of my exam and assessment below. IR consulted for pigtail catheter placement Continues rest of treatment Dictation was produced using [employer] dictation software. please excuse any grammatical, word or spelling errors. Objective - Vital Signs Vital signs: Vital Signs Temp 98.3 F 01/24/24 07:08 Pulse 76 01/24/24 08:12 Resp 16 01/24/24 07:08 BP 155/90 01/24/24 07:08 Pulse Ox 86 L 01/24/24 08:03 FiO2 44 01/24/24 08:03 Intake & Output 01/23/24 01/24/24 01/24/24 18:59 06:59 18:59 Output Total 480 280 Balance -480 -280 Weight 47.5 kg Output: Urine 480 280 Uretheral (Carvajal) 280 Other: Voiding Method Indwelling Catheter Indwelling Catheter - Labs CBC & Chem 7: 01/23/24 07:21 01/23/24 07:21 Labs: Abnormal Lab Results - Last 24 Hours (Table) 01/23/24 01/23/24 Range/Units 07:21 07:21 RBC 3.99 L (4.10-5.20) X 10*6/uL Hgb 11.2 L (12.0-15.0) g/dL Hct 36.3 L (37.2-46.3) % MCHC 30.9 L (32.0-37.0) g/dL RDW 16.4 H (11.5-14.5) % Immature Gran # 0.27 H (0.00-0.04) X 10*3/uL Lymphocytes # 0.85 L (0.90-5.00) X 10*3/uL BUN/Creatinine Ratio 27.67 H (12.00-20.00) Ratio Calcium 8.6 L (8.7-10.3) mg/dL
--- NOTE | 2024-01-24 15:53 | P.PN ---
Subjective Progress Note Date: 01/23/24 Principal diagnosis: Reason for follow-up is ESBL E. coli urinary tract infection Patient is a 74-year-old female with a past medical history significant for COPD hypertension anxiety depression current everyday smoker, patient presenting to the hospital with increasing shortness of breath has been diagnosed with a pneumothorax status post right-sided chest tube also have a positive UA with urine culture positive for ESBL prompted this consultation. On today's evaluation that is 01/23/2024, Patient is afebrile patient is currently on 4 L nasal cannula oxygen and denies having any worsening shortness of breath, the patient denies any chest pain or cough, the patient denies any nausea vomiting did not have any abdominal pain and no diarrhea Patient white count is 7.9, creatinine 0.61 Objective - Vital Signs Vital signs: Vital Signs Temp 98.3 F 01/23/24 13:46 Pulse 88 01/23/24 13:46 Resp 16 01/23/24 13:46 BP 129/75 01/23/24 13:46 Pulse Ox 100% 01/23/24 13:46 FiO2 4L 01/23/24 13:46 - Exam GENERAL DESCRIPTION: An elderly female lying in bed in no distress RESPIRATORY SYSTEM: Unlabored breathing , decreased breath sounds at bases HEART: S1 S2 regular rate and rhythm , ABDOMEN: Soft , no tenderness EXTREMITIES: No edema feet - Labs CBC & Chem 7: 01/23/24 07:21 01/23/24 07:21 Assessment and Plan (1) Infection due to ESBL-producing Escherichia coli Current Visit: Yes Status: Acute Code(s): A49.8 - OTHER BACTERIAL INFECTIONS OF UNSPECIFIED SITE; Z16.12 - EXTENDED SPECTRUM BETA LACTAMASE (ESBL) RESISTANCE SNOMED Code(s): 697730733 (2) UTI (urinary tract infection) Current Visit: No Status: Acute Code(s): N39.0 - URINARY TRACT INFECTION, SITE NOT SPECIFIED SNOMED Code(s): 16034167 Plan: 1patient with initial presentation to the hospital for increasing shortness of breath patient did have a significantly positive UA from urinary symptoms concerning for symptomatic urinary tract infection 2-patient mention improvement in urinary symptoms, to continue with-Invanz 1 g daily and monitor clinical course closely Dictation was produced using [employer] software. please excuse any g rammatical, word or spelling errors. Time with Patient: Less than 30
--- NOTE | 2024-01-24 15:54 | P.PN ---
Subjective Progress Note Date: 01/24/24 Principal diagnosis: Reason for follow-up is ESBL E. coli urinary tract infection Patient is a 74-year-old female with a past medical history significant for COPD hypertension anxiety depression current everyday smoker, patient presenting to the hospital with increasing shortness of breath has been diagnosed with a pneumothorax status post right-sided chest tube also have a positive UA with urine culture positive for ESBL prompted this consultation. On today's evaluation that is 01/24/2024, patient has been afebrile, patient is breathing comfortably and is currently on 7 L nasal cannula oxygen however the patient denies any worsening shortness of breath or any significant cough no chest pain shortness of breath, patient denies nausea vomiting or diarrhea and no abdominal pain. Patient white count 7.19, creatinine 0.6 Objective - Vital Signs Vital signs: Vital Signs Temp 97.6 F 01/24/24 13:24 Pulse 70 01/24/24 15:27 Resp 20 01/24/24 13:24 BP 124/68 01/24/24 13:24 Pulse Ox 92 L 01/24/24 13:24 FiO2 44 01/24/24 08:03 Intake & Output 01/23/24 01/24/24 01/24/24 18:59 06:59 18:59 Intake Total 50 Output Total 480 280 Balance -480 -280 50 Weight 47.5 kg Intake: Intake, IV Titration 50 Amount Ertapenem 1 gm In Sodium 50 Chloride 0.9% 50 ml @ 100 mls/hr IVPB DAILY [facility] Rx #:[id number] Output: Urine 480 280 Uretheral (Carvajal) 280 Other: Voiding Method Indwelling Catheter Indwelling Catheter - Exam GENERAL DESCRIPTION: An elderly female lying in bed in no distress RESPIRATORY SYSTEM: Unlabored breathing , decreased breath sounds at bases HEART: S1 S2 regular rate and rhythm , ABDOMEN: Soft , no tenderness EXTREMITIES: No edema feet - Labs CBC & Chem 7: 01/23/24 07:21 01/23/24 07:21 Assessment and Plan (1) Infection due to ESBL-producing Escherichia coli Current Visit: Yes Status: Acute Code(s): A49.8 - OTHER BACTERIAL INFECTIONS OF UNSPECIFIED SITE; Z16.12 - EXTENDED SPECTRUM BETA LACTAMASE (ESBL) RESISTANCE SNOMED Code(s): 484004449 (2) UTI (urinary tract infection) Current Visit: No Status: Acute Code(s): N39.0 - URINARY TRACT INFECTION, SITE NOT SPECIFIED SNOMED Code(s): 32947699 Plan: 1patient with initial presentation to the hospital for increasing shortness of breath patient did have a significantly positive UA from urinary symptoms concerning for symptomatic urinary tract infection 2-patient has been afebrile and white count has been normal to continue with- Invanz 1 g daily and monitor clinical course closely Dictation was produced using [employer] dictation software. please excuse any grammatical, word or spelling errors. Time with Patient: Less than 30
--- NOTE | 2024-01-25 07:48 | XR ---
EXAMINATION TYPE: XR chest 1V portable DATE OF EXAM: 01/25/2024 HISTORY: Follow-up pneumothorax COMPARISON: 01/24/2024 TECHNIQUE: Single view of the chest is submitted. FINDINGS: There is interval placement of right-sided pleural catheter. Pneumothorax does persist although sligh tly smaller in size and is estimated at between 10 and 15% with greater basilar component. Right basilar infiltrate persists. The heart is stable. Hilar and mediastinal structures are within normal limits. Degenerative changes are seen of the dorsal spine. IMPRESSION: 1. Persistent right-sided pneumothorax smaller in size and on prior study with interval placement of pleural catheter.
--- NOTE | 2024-01-25 07:55 | CT ---
EXAMINATION TYPE: CT chest tube insertion DATE OF EXAM: 01/24/2024 COMPARISON: Chest x-ray 01/24/2024. HISTORY: Spontaneous pneumothroax CT DLP: 873 mGycm The procedure is discussed with the patient, the risks, complications, benefits and alternatives, wer e discussed and any questions were answered. Informed consent was obtained. The patient is placed s upine on the CT table, prepped and draped in the usual sterile fashion. Utilizing a 21-gauge core biopsy needle access into right pleural space was achieved with placement a n 0.035 wire. There is serial dilation to 8 Algerian and placement of an 8 Algerian pigtail catheter as r equested. Repeat imaging demonstrated ideal placement of the catheter. All elements of maximal barri er and sterile technique were utilized. The patient remained stable throughout the procedure with no immediate postprocedural complication. IMPRESSION: 1. Successful CT guided right chest tube insertion.
--- NOTE | 2024-01-25 10:56 | P.PN ---
Subjective Progress Note Date: 01/25/24 Principal diagnosis: Spontaneous right-sided pneumothorax, second occurrence, status post placement of thoravent. History of right-sided pneumothorax in April 2022, chronic hypo xemic respiratory failure on home oxygen, COPD, tobacco dependence, hypertension, frequent falls, depression Acute hypoxic respiratory failure secondary to increased right sided pneumothorax with significant subcutaneous emphysema, status post right thoracostomy tube placement by Dr. Rincon, and postoperative day #1 right pigtail catheter placement by interventional radiology. The patient was seen and examined in follow-up today January 25, 2024 at her bedside on the fourth floor medical surgical unit. She is currently sitting up in bed, is awake, alert, oriented x 3 and is in no acute apparent distress. The patient is hard of hearing. Currently she is on 5 L nasal cannula with oxygen saturations 99%. She is achieving 500 mL on her incentive spirometry with much encouragement. The patient underwent a placement of a right pigtail catheter yesterday by interventional radiology with the right-sided pigtail catheter in place to low continuous wall suction -20 cm H2O. Continuous airleak is present. Draining thin serosanguineous drainage with 20 mL of output in the last 24 hours. The patient may require talc pleural instillation. The patient subcutaneous emphysema has improved significantly. Chest x-ray results reviewed. Objective - Vital Signs Vital signs: Vital Signs Temp 97.9 F 01/25/24 07:01 Pulse 71 01/25/24 08:48 Resp 22 01/25/24 08:48 BP 129/75 01/25/24 07:01 Pulse Ox 92 L 01/25/24 08:36 FiO2 44 01/24/24 08:03 Intake & Output 01/24/24 01/25/24 01/25/24 18:59 06:59 18:59 Intake Total 50 Output Total 750 250 Balance -700 -250 Weight 47 kg Intake: Intake, IV Titration 50 Amount Ertapenem 1 gm In Sodium 50 Chloride 0.9% 50 ml @ 100 mls/hr IVPB DAILY [facility] Rx #:[id number] Output: Urine 750 250 Uretheral (Carvajal) 250 - Exam CONSTITUTIONAL: Awake and alert, no pain, no acute distress, appears very frail RESPIRATORY: Lungs sounds diminished bilaterally, right greater than left. Respirations symmetrical, nonlabored. Currently on 5 L nasal cannula with oxygen saturation 99%. Achieving 500 mL on her incentive spirometry with much encouragement. Strong loose cough. CARDIOVASCULAR: S1, S2 present. Regular rate and rhythm. Palpable peripheral pulses bilaterally. GASTROINTESTINAL: Abdomen soft, nontender, nondistended without masses or organomegaly noted. There is no rebound or guarding present. Active bowel sounds present 4 quadrants. Positive bowel movement 01/22/24 GENITOURINARY: Carvajal present draining clear yellow urine. INTEGUMENTARY: Skin is warm and dry. No clubbing or cyanosis is present. NEUROLOGIC: Cranial nerves II through XII intact. MUSKULOSKELETAL: Able to move all extremities, generalized weakness. PSYCHIATRIC: Alert and oriented to person, hard of hearing. - Allied health notes Allied health notes reviewed: nursing - Labs CBC & Chem 7: 01/23/24 07:21 01/23/24 07:21 - Imaging and Cardiology Chest x-ray: report reviewed, image reviewed Assessment and Plan Assessment: Spontaneous right-sided pneumothorax, second occurrence, S/P thoravent by the ER physicians Acute hypoxic respiratory failure secondary to increased right PTX with significant subq emphysema, S/P placement of right thoracostomy tube by Dr. Rincon,, status post right pigtail catheter placement by interventional radiology History of right-sided pneumothorax in April 2022 Chronic hypoxemic respiratory failure on home oxygen COPD Tobacco dependence Hypertension Frequent falls Depression Medical debility Plan: Keep right pigtail catheter in place to low continuous wall suction -20 cm H2O. Once lung has expanded if there is no air leak we will add talc pleural instillation. Continue to monitor for airleak resolution. Wean oxygen as tolerated, encourage incentive spirometry 10 times every hour while awake, bronchodilators/steroids per pulmonology. Will monitor daily chest x-rays. Increase activity as tolerated, PT/OT following. Medical management of other comorbidities per internal medicine, pulmonology. Poor prognosis, consider palliative care. More recommendations to follow based on patient's clinical course. Time with Patient: Less than 30
--- NOTE | 2024-01-25 12:05 | P.PN ---
Subjective Progress Note Date: 01/25/24 Progress note dated January 19, 2024. 74-year-old female who was initially seen in consultation on January 16. She had a follow-up with no yesterday. Yesterday, because of a recurrent and more significant right-sided pneumothorax, a chest tube was placed. A 28 Kazakh chest tube was placed on the right side without difficulty. Currently, she is on Airvo, at 40 L/min with an FiO2 55%. She is getting saline at 75 cc an hour. The chest tube was noted to be in proper position on chest x-ray. There is no leak noted. The chest tube remains on suction. Cardiothoracic surgery is following the patient also. Current laboratory includes a white count 6.7, hemoglobin 11.1, hematocrit 35.7, and a normal platelet count. Sodium 140, potassium 4.5, chlorides 107, CO2 29, BUN 44, creatinine 0.69. Glucose is 123. Calcium 8.7. Urine is showing gram-negative bacilli. It has yet to be identified. The patient continues on Rocephin. Other important medications include Symbicort, and DuoNeb, as well as prednisone 40 mg. Progress note dated January 20, 2024. 74-year-old female seen initially in consultation on January 16. The patient was seen yesterday in the intensive care unit, and then again today in the intensive care unit. She is in room 254. She is doing much better today. She is down to 2 L of oxygen. She is getting saline at 75 cc an hour. Her urine shows gram- negative organisms, and she is currently on Rocephin. She is clinically feeling better. Her chest x-ray is stable. There is no air leak from the right side. Current labs include a white count 9.4, hemoglobin 9.9, hematocrit 32, and platelet count of 280,000. Sodium 141, potassium 3.7, chlorides 110, CO2 30, BUN 29, and creatinine 0.71. Procalcitonin level was 0.13. Urine was positive for Escherichia coli. It is an ESBL E. coli, and she will need to be switched to ertapenem. Chest x-ray stable. The patient is seen today January 21, 2024 in follow-up on the regular medical floor. She is currently sitting up in bed. Awake and alert in no acute distress. She is requiring 5 L/min per nasal cannula to maintain O2 saturations in the 90s. No IV fluids. Chest x-ray no sizable pneumothorax. Right-sided chest tube remains in place. Currently off suction and placed to waterseal. Basilar infiltrates persist right greater than left. Urine culture was positive for E. coli. White count 10.2. Hemoglobin 10.5. Platelets 289. Sodium 139. Potassium 3.5. Bicarb 28. BUN 15. Creatinine 0.5. Glucose 103. He is continued on DuoNeb ventilations, Symbicort. Antibiotics in the form of ertapenem. Heparin for DVT prophylaxis. The patient is seen today January 22, 2024 in follow-up on the regular medical floor. She is resting comfortably in bed. Awake and alert in no acute distress. She is maintaining O2 saturations in the 90s on 4 L/min per nasal cannula. Normal saline at KVO. Her chest tube was clamped this morning. Chest x-ray reveals right-sided chest tube in unchanged position. Sizable pneumot horax not evident. Patchy basilar infiltrates persist. Stable chest. Improving subcutaneous emphysema. Urine culture was positive for ESBL E. coli. WBC 7.9. Hemoglobin 11.5. Platelets 338. Sodium 134. Potassium 3.7. Bicarb 31. BUN 16. Creatinine 0.61. Glucose 109. She remains on DuoNeb inhalations, Symbicort. Antibiotics in the form of ertapenem. The patient is seen today January 23, 2024 in follow-up on the regular medical floor. She is sitting up in bed. Awake and alert in no acute distress. She is maintaining good O2 saturations in the 90s on 4 L/min per nasal cannula. Her chest tube was removed yesterday. Today's chest x-ray reveals a small 20 to 25% right apical pneumothorax. She denies any worsening shortness of breath, cough or congestion. She is working with the incentive spirometer. She is continued on DuoNeb inhalations, Symbicort. Urine culture positive for ESBL E. coli. Remains on antibiotics in the form of ertapenem. Heparin for DVT prophylaxis. No new labs today. The patient is seen today January 24, 2024 in follow-up on the regular medical floor. She is currently resting in bed. Awake and alert in no acute distress. She is requiring 7 L high flow nasal cannula to maintain O2 saturations in the 90s. She has normal staying at KVO. She denies any worsening shortness of breath, cough or congestion. Unfortunately her chest x-ray shows slight progression of the right-sided pneumothorax estimated at 25% and increased laterally. Persistent right upper lobe infiltrate. Improving subcutaneous air. The plan now is for a pigtail catheter insertion per interventional radiology. Urine culture was positive for ESBL E. coli. She remains on ertapenem. Continued on DuoNeb inhalations, Symbicort. Heparin for DVT prophylaxis. The patient is seen today January 25, 2024 in follow-up on the regular medical floor. She is currently resting comfortably in bed. Awake and alert in no acute distress. Maintaining O2 saturations in the 90s on 4 L/min per nasal cannula. She did have a pigtail catheter placed yesterday. This is to Pleur- evac. There is a positive leak. Chest x-ray continues to show a pneumothorax on the right. She remains on DuoNeb ventilations, Symbicort. Heparin for DVT prophylaxis. Remains on Invanz. Urine culture was positive for E. coli, ESBL. No new labs today. Objective - Vital Signs Vital signs: Vital Signs Temp 97.9 F 01/25/24 07:01 Pulse 70 01/25/24 11:36 Resp 18 01/25/24 11:36 BP 129/75 01/25/24 07:01 Pulse Ox 92 L 01/25/24 08:36 FiO2 44 01/24/24 08:03 Intake & Output 01/24/24 01/25/24 01/25/24 18:59 06:59 18:59 Intake Total 50 Output Total 750 250 Balance -700 -250 Weight 47 kg Intake: Intake, IV Titration 50 Amount Ertapenem 1 gm In Sodium 50 Chloride 0.9% 50 ml @ 100 mls/hr IVPB DAILY [facility] Rx #:[id number] Output: Urine 750 250 Uretheral (Carvajal) 250 Other: Voiding Method Indwelling Catheter - Exam GENERAL EXAM: Alert, frail 74-year-old female, sitting up in bed, on 4 L nasal cannula, comfortable in no distress. HEAD: Normocephalic. EYES: Normal reaction of pupils, equal size. NOSE: Clear with pink turbinates. THROAT: No erythema or exudates. NECK: No masses, no JVD. CHEST: No chest wall deformity. LUNGS: Equal air entry with basilar crackles right greater than left. Right- sided pigtail catheter in place to Pleur-evac. Positive leak. CVS: S1 and S2 normal with no audible murmur, regular rhythm. ABDOMEN: No hepatosplenomegaly, normal bowel sounds, no guarding or rigidity. SPINE: No scoliosis or deformity SKIN: No rashes. There was some subcutaneous emphysema CENTRAL NERVOUS SYSTEM: No focal deficits, tone is normal in all 4 extremities. EXTREMITIES: There is no peripheral edema. No clubbing, no cyanosis. Peripheral pulses are intact. - Labs CBC & Chem 7: 01/23/24 07:21 01/23/24 07:21 Assessment and Plan Assessment: Acute right-sided pneumothorax, initially treated with a Thora vent device, and then a 28 Kazakh chest tube, placed on waterseal 01/21/2024. Removed 01/22/2024. Increasing pneumothorax on 01/24/2024 and now with a pigtail catheter placed. Positive leak. Follow-up chest x-ray today January 25, 2024 reveals persistent right-sided pneumothorax smaller in size compared to yesterday. Acute hypoxemic respiratory failure secondary to COPD and right pneumothorax ESBL E. coli urinary tract infection. Currently on ertapenem Mental status changes, improved History of traumatic right-sided pneumothorax 2021 History of severe emphysema Ongoing tobacco use with nicotine addiction History of falls History of medication noncompliance Hypertension Plan: The patient was seen and evaluated Chest x-ray and medications reviewed Improvement in the right-sided pneumothorax Pigtail catheter placed yesterday, positive leak Titrate the FiO2 as tolerated Continue the current treatment plan Encourage increased use of the incentive spirometer Increase her activity as tolerated We will continue to follow I have personally seen and examined the patient, performed the documentation and the assessment and plan as written. Number of minutes spent on the visit: 10.
--- NOTE | 2024-01-25 15:48 | P.PN ---
Subjective Progress Note Date: 01/25/24 Principal diagnosis: Reason for follow-up is ESBL E. coli urinary tract infection Patient is a 74-year-old female with a past medical history significant for COPD hypertension anxiety depression current everyday smoker, patient presenting to the hospital with increasing shortness of breath has been diagnosed with a pneumothorax status post right-sided chest tube also have a positive UA with urine culture positive for ESBL prompted this consultation. On today's evaluation that is 01/25/2024, Patient is afebrile this morning patient denies having any chest pain shortness of breath or cough, the patient is breathing comfortably and currently on 3 L nasal cannula oxygen, patient denies any abdominal pain no diarrhea no nausea no vomiting. Patient did not have any lab draw today Objective - Vital Signs Vital signs: Vital Signs Temp 97.6 F 01/25/24 14:01 Pulse 78 01/25/24 14:01 Resp 16 01/25/24 14:01 BP 112/64 01/25/24 14:01 Pulse Ox 94 L 01/25/24 14:01 FiO2 44 01/24/24 08:03 Intake & Output 01/24/24 01/25/24 01/25/24 18:59 06:59 18:59 Intake Total 50 Output Total 750 250 48 Balance -700 -250 -48 Weight 47 kg Intake: Intake, IV Titration 50 Amount Ertapenem 1 gm In Sodium 50 Chloride 0.9% 50 ml @ 100 mls/hr IVPB DAILY [facility] Rx #:[id number] Output: Chest Tube Drainage 48 Chest Tube Right 24 Pleural Catheter Right 24 Mid-Axillary Chest Urine 750 250 Uretheral (Carvajal) 250 Other: Voiding Method Indwelling Catheter - Exam GENERAL DESCRIPTION: An elderly female lying in bed in no distress RESPIRATORY SYSTEM: Unlabored breathing , decreased breath sounds at bases HEART: S1 S2 regular rate and rhythm , ABDOMEN: Soft , no tenderness EXTREMITIES: No edema feet - Labs CBC & Chem 7: 01/23/24 07:21 01/23/24 07:21 Assessment and Plan (1) Infection due to ESBL-producing Escherichia coli Current Visit: Yes Status: Acute Code(s): A49.8 - OTHER BACTERIAL INFECTIONS OF UNSPECIFIED SITE; Z16.12 - EXTENDED SPECTRUM BETA LACTAMASE (ESBL) RESISTANCE SNOMED Code(s): 881586336 (2) UTI (urinary tract infection) Current Visit: No Status: Acute Code(s): N39.0 - URINARY TRACT INFECTION, SITE NOT SPECIFIED SNOMED Code(s): 21667538 Plan: 1patient with initial presentation to the hospital for increasing shortness of breath patient did have a significantly positive UA from urinary symptoms concerning for symptomatic urinary tract infection 2-patient has been afebrile and white count has been normal 3-patient to continue with-Invanz 1 g daily and continue supportive care Dictation was produced using [employer] dictation software. please excuse any grammatical, word or spelling errors. Time with Patient: Less than 30
--- NOTE | 2024-01-25 15:54 | P.PN ---
Subjective Progress Note Date: 01/25/24 History of present illness; 74-year-old female presented to the emergency department with shortness of breath. Patient was brought to the emergency department by EMS, who reported they found her in significant distress sitting in the tripod position and tachypneic. Initial chest x-ray upon arriving in the emergency department showed the patient had a right-sided pneumothorax, for which she had a right-sided Thora vent placed. Following which pulmonology was consulted. Patient was found to be unable to give a great history, as a result of her dyspnea as well as elements of possible delirium or possible dementia. Her past medical history is significant for previous traumatic pneumothorax in April 2022, chronic hypoxemic respiratory failure on home oxygen, tobacco dependence and COPD for which she takes fluticasonesalmeterol and DuoNeb. Upon admission to the emergency department her oxygen saturation was 93 on BiPAP and respiratory rate was 30, currently is satting at 96% on 3 L nasal cannula. ABG completed this morning showed pCO2 of 59, pO2 59, HCO3 of 34, ABG O2 saturation of 91.2. Some difficulties in communicating/asking questions to the patient, due to either difficulty hearing or potentially not understanding, as the patient would occasionally answer questions that were not being asked. Patient did know she was in [place], however she was unaware of how she arrived to the hospital or that she had been in the emergency department. Initial lab work done in the ER showed CO2 of 31, BUN of 35 and a glucose of 200. CBC and CMP unremarkable. Troponin less than 0.012. NT proBNP 207. EKG done in the ER showed heart rate of 90, normal sinus rhythm, and possible left atrial enlargement and left ventricular hypertrophy. Initial chest x-ray done in the ER showed a right sided basal pneumothorax, along with trace bilateral pleural effusions and flattening of the diaphragms consistent with COPD. 01/17 - Patient seen at bedside in the ICU today, where she was moved early this morning as a result of worsening shortness of breath and increasing oxygen demand due to significant subcutaneous emphysema. She was placed on AirVo high flow nasal canulla and a right thoracostomy tube was placed by Dr. Rincon with re-expansion of the right lung, without evidence of a pneumothorax and subcutaneous emphysema throughout the thorax, per chest X ray this morning follo wing thoracostomy. She was initially placed on AirVo high flow nasal canulla, following use of a non re-breather, where she began at 55 LPM with an FiO2 of 90%, she has been weened to 45 LPM with an FiO2 of 80% as of this afternoon. When visiting bedside patient had just taken a Dilaudid and was resting in bed. Switched from Dilaudid to Toradol for pain control as the result of the grogginess caused on the Dilaudid. Patient had no current complaints. Labs drawn today - WBCs of 11.8, BUN of 46 01/18 -patient seen at bedside in the ICU today. She appears better today, more awake and very pleasant to interact with, she seems to have increased appetite as she had eaten most of her breakfast prior to my arrival. She states that she has no current complaints. Her visible subcutaneous emphysema above the right clavicle has improved significantly. Overnight patient was weaned on her high flow nasal cannula, presenting with an oxygen saturation of 98% receiving 45 LPM and an FiO2 of 60%. Currently she has been weaned further, having oxygen saturation 99% while receiving 40 LPM and FiO2 of 55%. Chest x-ray this morning (01/18) showed no evidence of pneumothorax, with a small right thoracotomy tube with subcutaneous gas throughout the thorax subcutaneous tissues. Labs drawn today - WBCs of 6.7, Hgb of 11.1, BUN of 44 01/20 - Patient seen at bedside today, she is no longer in the ICU. She looks more awake and alert today, and has continued to look a little better over the past couple of days. She states she is feeling better. When seen today she was sitting in her chair, as opposed on the bed. She is currently on 4 L nasal cannula saturating in the high 90s. Her visible subcutaneous emphysema has improved significantly. Sided chest tube remains to continuous wall suction, with no airleak present for 48 hours. Her chest x-ray showed no pneumothorax present, subcutaneous emphysema present but less, with some patchy density in the right lower lobe. 20 mg IV Lasix given, due to the patchiness possibly being a result of fluid accumulation. Her urine was positive for gram-negative organisms, Escherichia coli. Procalcitonin was elevated at 0.13. Indications are it is an ESBL E. coli, she has been switched from Rocephin to ertapenem. PT/OT consulted. Labs drawn today -WBCs 10.26, Hgb 10.5, Hct 33.3, Neutrophils 8.58, calcium 8.5 01/21 - Patient seen at bedside today. She is continue to look better, while still appearing quite frail, she has had much more energy and been excited to converse in the morning. Continues to state that she is feeling better with her breathing while remaining on 4 L nasal cannula and her last reported oxygen saturation was 98% on the 4 L nasal cannula. Her visible subcutaneous emphysema has improved significantly, has almost completely resolved. Right-sided chest tube remains connected to continuous wall suction, with no airleak present. Chest x-ray done this morning showed an overall stable chest following the administration of 20 mg IV Lasix yesterday. She continues receiving breathing treatments via her Symbicort inhaler and her DuoNeb. She continues to receive Toradol for pain. And continues receiving ertapenem IV. PT/OT both saw the patient yesterday, recommended daily treatments. PT/OT both consulted for daily treatment. Labs drawn today -WBCs 7.9, Hgb 11.5, Hct 35.8, sodium 134 Imaging done today - chest x-ray showing and overall stable chest. 01/22 - Patient seen at bedside today. She states that this morning she has had some increased difficulty breathing and that she is "just not feeling all that great". She was saturating at 91% on 4 L nasal cannula at 8:26 AM. Patient remains afebrile. Patient's chest tube was removed yesterday, 01/21, by surgery. Chest x-ray today shows chest tube has been removed and there is recurrence of right-sided pneumothorax estimated 2024%. Noting the apical pleural distance right upper lobe is 1.6 cm, at the mid lung 8 mm and at the right lung base 2.6 cm. Pulmonology continues to see the patient. as per infectious disease, the patient will continue with 1 g ertapenem daily. Patient will continue with her Symbicort and DuoNeb, as per pulmonology. Labs drawn today - ordered and currently pending at time of dictation. Imaging done today - chest x-ray showed right-sided chest tube has been removed with recurrence of right-sided pneumothorax estimating at 20-25%. Noting apical pleural distance right upper lobe 1.6 cm, at the mid lung 8 mm and at the right lung base 2.6 cm 01/23 - Patient seen at bedside today. Earlier this morning patient had episodes of her saturations dropping into the 80s, throughout various increases in the amount of oxygen through nasal cannula. She is currently on 7 L nasal cannula with saturation in her mid 90s. She has endured some of these similar fluctuations even during the time in which her chest tube was then. When seen her this morning she had a appears comfortable, and does not have any current complaints. Subcutaneous emphysema which was present above her right clavicle has improved significantly, is not noticeable. Unfortunately her x-ray over the last couple of days have shown the recurrence of right-sided pneumothorax, today estimated at approximately 25%. Plan is for IR to place a pigtail put on wall suction to help lung expand. Labs drawn today - none. Imaging done today -chest x-ray done today showed slight progression of right- sided pneumothorax estimated approximately 25%. 01/24 - Patient seen at bedside today. She is resting more comfortably today than yesterday. Status post pigtail catheter insertion by interventional radiology yesterday. She is currently resting on the 4 and half liters of high flow nasal cannula saturating at 92%. Chest x-ray today showed persistent right-sided pneumothorax smaller in size than seen on previous x-ray with interval placement of a pleural catheter. CT-guided insertion of a right-sided chest tube completed on 01/23. Per Dr. Zhu, patient will continue with ertapenem 1 g daily, and continue to monitor clinical course close closely. Patient has continued to be afebrile. Labs drawn today - None. Imaging none today - chest x-ray done today showed persistent right-sided pneumothorax smaller in size than seen on previous x-ray with interval placement of pleural catheter. REVIEW 10.5,OF SYSTEMS: CONSTITUTIONAL: No fever, no malaise. CARDIOVASCULAR: No chest pain, no palpitations, no syncope. PULMONARY: No shortness of breath, no cough. GASTROINTESTINAL: As stated above. GENITOURINARY: Carvajal present draining clear yellow urine. NEUROLOGICAL: No headaches, no weakness, PHYSICAL EXAMINATION: GENERAL: Awake and alert, not in any acute distress. Very frail appearing. HEENT: Pupils are round and equally reacting to light. EOMI. No scleral icterus. No conjunctival pallor. Normocephalic, atraumatic. No pharyngeal erythema. No thyromegaly. CARDIOVASCULAR: S1 and S2 present. No murmurs, rubs, or gallops. PULMONARY: Equal air entry with some crackles noted on the right. Right-sided chest tube placed. On 4 and half liters high flow nasal cannula saturating at 92%. ABDOMEN: Soft, nontender, nondistended, normoactive bowel sounds. No palpable organomegaly. MUSCULOSKELETAL: No joint swelling or deformity. EXTREMITIES: No edema, no cyanosis, or clubbing. NEUROLOGICAL: Gross neurological examination did not reveal any focal deficits. Alert and oriented, has continued appearing less confused. SKIN: No rashes. Assessment and plan 1. Right-sided basal pneumothorax Right-sided Thora vent placed in the emergency department This present and connected to the atrium with continuous wall suction, without airleak Surgery ordered incentive spirometry and encourage use Increase activity as tolerated PT and OT referred by surgery PT and OT have been consulted to see the patient daily to help her build up strength 2. Acute hypoxic respiratory failure secondary to right-sided pneumothorax On arrival O2 sat 93% and 91.2% on ABG Hypoxia has resolved following resolution of pneumothorax on 3 L nasal cannula She is continuing to receive Symbicort, DuoNeb, Zithromax and prednisone; Zithromax discontinued on 01/17, Rocephin IV started - Another episode of hypoxic respiratory failure early on 01/17 lead to admission to ICU where right thoracostomy tube was placed by Dr. Rincon. - Continue chest tube with continuous wall suction - Chest X ray taken after the placement of the thoracostomy tube showed it present, without evidence of a pneumothorax. - Chest X ray (01/20) showed no sizable pneumothorax, the chest tube port may be outside of the chest, subcutaneous air noted along the right chest wall. Patchy density right lower lobe and to a lesser extent left lower lobe persist. Chest tube removed on 01/21 Chest x-ray on 01/22 noted that the chest tube had been removed and there was recurrence of right-sided pneumothorax estimating 20-25%. Patient's saturations have fluctuated this morning on varying amounts of oxygen. Currently on 7 L nasal cannula saturating at 93%. Chest x-ray on 72 noted right-sided pneumothorax progression estimated 25%. Plan is currently for IR to place a pigtail catheter. CT-guided chest tube placement on 01/23, chest x-ray noted persistent right- sided pneumothorax smaller in size than on previous x-ray with interval placement of pleural catheter. Patient currently on 4-1/2 L high flow nasal cannula saturating 92%. 3. Chronic and ongoing tobacco dependence She continues to smoke and removes her oxygen due so She has been encouraged to stop, however has not been compliant 4. Oxygen dependent chronic COPD/emphysema Uses DuoNeb and fluticasonesalmeterol at home - Per pulmonology note from her stay 1 month ago she is inconsistent in using her medications Remains on 3 L nasal cannula at home Per pulmonology COPD is stable 5. Low BMI Patient's BMI estimated at 17.2 Poor dietary intake recorded, nutritional assessment by dietitian Per dietitian recommendations she will be given Ensure Enlive 3 times daily 6. Escherichia coli positive urinary tract infection UA completed on 01/17 showed urine turbid appearance, positive urine nitrates, greater than 182 urine WBCs, many urine WBC clumps, many urine bacteria Patient has been afebrile since arrival WBCs on labs drawn on 01/17 were elevated at 11.8, however on 01/18 were 6.7 - Zithromax 500 mg daily discontinued, patient started on Rocephin IV for 3 days Procalcitonin ordered; procalcitonin elevated at 0.13 - ESBL E. coli, Rocephin was stopped, patient was started on ertapenem on 01/19 Patient continues to be afebrile, per Dr. Zhu's recommendation patient will continue on 1 g ertapenem daily Monitor vital signs Monitor oxygen levels Monitor CBC Monitor CMP Encourage use of incentive spirometry Labs and medication were reviewed. Continue with symptomatic treatment. Resume home medication. Monitor labs and vitals. DVT and GI prophylaxis. Further recommendations as per clinical course of the patient Dictation was produced using [employer] dictation software. please excuse any grammatical, word or spelling errors. The impression and plan of care has been dictated by , resident as directed. I have performed a history and physical examination and medical decision making of this patient, discussed the same with the dictator, and agree with the dictators assessment and plan as written, documented as a scribe. Based on total visit time, I have performed more than 50% of this visit. Dr. Loy Polo MD FACP Objective - Vital Signs Vital signs: Vital Signs Temp 98.1 F 01/25/24 01:35 Pulse 59 L 01/25/24 01:35 Resp 18 01/25/24 01:35 BP 125/68 01/25/24 01:35 Pulse Ox 99 01/25/24 01:35 FiO2 44 01/24/24 08:03 Intake & Output 01/24/24 01/25/24 01/25/24 18:59 06:59 18:59 Intake Total 50 Output Total 750 250 Balance -700 -250 Weight 47 kg Intake: Intake, IV Titration 50 Amount Ertapenem 1 gm In Sodium 50 Chloride 0.9% 50 ml @ 100 mls/hr IVPB DAILY [facility] Rx #:[id number] Output: Urine 750 250 Uretheral (Carvajal) 250 - Labs CBC & Chem 7: 01/23/24 07:21 01/23/24 07:21
--- NOTE | 2024-01-26 07:21 | XR ---
EXAMINATION TYPE: XR chest 1V portable DATE OF EXAM: 01/26/2024 COMPARISON: 01/25/2024 HISTORY: Follow-up pneumothorax. TECHNIQUE: Single frontal view of the chest is obtained. FINDINGS: There has been interval reduction in the loculated right pneumothorax in the right lung base. There i s no change in the pleural space pigtail drainage catheter. A tiny right lung base hydropneumothorax persists. There is marked COPD. The heart size is normal and the pulmonary vasculature is not congested. IMPRESSION: Tiny right lung base hydropneumothorax persists. There has been interval reduction in th e loculated pneumothorax compared to previous.
--- NOTE | 2024-01-26 09:31 | P.PN ---
Subjective Progress Note Date: 01/26/24 Principal diagnosis: Spontaneous right-sided pneumothorax, second occurrence, status post placement of thoravent. History of right-sided pneumothorax in April 2022, chronic hypo xemic respiratory failure on home oxygen, COPD, tobacco dependence, hypertension, frequent falls, depression Acute hypoxic respiratory failure secondary to increased right sided pneumothorax with significant subcutaneous emphysema, status post right thoracostomy tube placement by Dr. Rincon, and postoperative day #2 right pigtail catheter placement by interventional radiology. The patient was seen and examined in follow-up today January 26, 2024 at her bedside on the fourth floor medical surgical unit. She is currently sitting up in bed, is awake, alert, oriented x 3 and is in no acute apparent distress. The patient is hard of hearing. Currently she is on 3 L nasal cannula with oxygen saturations 97%. She is achieving 500 mL on her incentive spirometry with much encouragement. The patient underwent a placement of a right pigtail catheter on January 24, 2024 by interventional radiology with the right-sided pigtail catheter in place to low continuous wall suction -20 cm H2O. no air leak is present today. Draining thin serosanguineous drainage with 90 mL of output in the last 24 hours. The patient may require talc pleural instillation. The patient's subcutaneous emphysema has improved slightly today on physical exam. Chest x- ray results reviewed. Objective - Vital Signs Vital signs: Vital Signs Temp 98.2 F 01/26/24 07:32 Pulse 102 H 01/26/24 08:50 Resp 17 01/26/24 07:32 BP 146/84 01/26/24 07:32 Pulse Ox 93 L 01/26/24 08:51 FiO2 44 01/24/24 08:03 Intake & Output 01/25/24 01/26/24 01/26/24 18:59 06:59 18:59 Output Total 260 255 Balance -260 -255 Weight 46.5 kg Output: Chest Tube Drainage 50 255 Chest Tube Right 25 Pleural Catheter Right 25 255 Mid-Axillary Chest Urine 210 Other: Voiding Method Indwelling Catheter Indwelling Catheter # Bowel Movements 0 1 1 - Exam CONSTITUTIONAL: Awake and alert, no pain, no acute distress, cachectic, appears very frail. RESPIRATORY: Lungs sounds diminished bilaterally, right greater than left. Respirations symmetrical, nonlabored. Currently on 3 L nasal cannula with oxygen saturation 97%. Achieving 500 mL on her incentive spirometry with much encouragement. Strong loose cough. Right pigtail catheter in place to low continuous wall suction -20 cm H2O. No air leak is present. Draining thin serosanguineous drainage with 90 mL output in the last 24 hours. CARDIOVASCULAR: S1, S2 present. Regular rate and rhythm. Palpable peripheral pulses bilaterally. GASTROINTESTINAL: Abdomen soft, nontender, nondistended without masses or organomegaly noted. There is no rebound or guarding present. Active bowel sounds present 4 quadrants. Positive bowel movement 01/22/24 GENITOURINARY: Carvajal present draining clear yellow urine. INTEGUMENTARY: Skin is warm and dry. No clubbing or cyanosis is present. NEUROLOGIC: Cranial nerves II through XII intact. MUSKULOSKELETAL: Able to move all extremities, generalized weakness. PSYCHIATRIC: Alert and oriented to person, hard of hearing. - Allied health notes Allied health notes reviewed: nursing - Labs CBC & Chem 7: 01/23/24 07:21 01/23/24 07:21 - Imaging and Cardiology Chest x-ray: report reviewed, image reviewed Assessment and Plan Assessment: Spontaneous right-sided pneumothorax, second occurrence, S/P thoravent by the ER physicians Acute hypoxic respiratory failure secondary to increased right PTX with significant subq emphysema, S/P placement of right thoracostomy tube by Dr. Rinocn,, status post right pigtail catheter placement by interventional radiology History of right-sided pneumothorax in April 2022 Chronic hypoxemic respiratory failure on home oxygen COPD Tobacco dependence Hypertension Frequent falls Depression Medical debility Plan: Keep right pigtail catheter in place, will place pigtail catheter to waterseal today. If no pneumothorax is present on her chest x-ray tomorrow we will clamp the pigtail catheter for 24 hours. Wean oxygen as tolerated, encourage incentive spirometry 10 times every hour while awake, bronchodilators/steroids per pulmonology. Will monitor daily chest x-rays. Increase activity as tolerated, PT/OT following. Out of bed for all meals. Medical management of other comorbidities per internal medicine, pulmonology. Poor prognosis, consider palliative care. More recommendations to follow based on patient's clinical course. Time with Patient: Less than 30
--- NOTE | 2024-01-26 10:35 | P.PN ---
Subjective Progress Note Date: 01/26/24 Progress note dated January 19, 2024. 74-year-old female who was initially seen in consultation on January 16. She had a follow-up with no yesterday. Yesterday, because of a recurrent and more significant right-sided pneumothorax, a chest tube was placed. A 28 Polish chest tube was placed on the right side without difficulty. Currently, she is on Airvo, at 40 L/min with an FiO2 55%. She is getting saline at 75 cc an hour. The chest tube was noted to be in proper position on chest x-ray. There is no leak noted. The chest tube remains on suction. Cardiothoracic surgery is following the patient also. Current laboratory includes a white count 6.7, hemoglobin 11.1, hematocrit 35.7, and a normal platelet count. Sodium 140, potassium 4.5, chlorides 107, CO2 29, BUN 44, creatinine 0.69. Glucose is 123. Calcium 8.7. Urine is showing gram-negative bacilli. It has yet to be identified. The patient continues on Rocephin. Other important medications include Symbicort, and DuoNeb, as well as prednisone 40 mg. Progress note dated January 20, 2024. 74-year-old female seen initially in consultation on January 16. The patient was seen yesterday in the intensive care unit, and then again today in the intensive care unit. She is in room 254. She is doing much better today. She is down to 2 L of oxygen. She is getting saline at 75 cc an hour. Her urine shows gram- negative organisms, and she is currently on Rocephin. She is clinically feeling better. Her chest x-ray is stable. There is no air leak from the right side. Current labs include a white count 9.4, hemoglobin 9.9, hematocrit 32, and platelet count of 280,000. Sodium 141, potassium 3.7, chlorides 110, CO2 30, BUN 29, and creatinine 0.71. Procalcitonin level was 0.13. Urine was positive for Escherichia coli. It is an ESBL E. coli, and she will need to be switched to ertapenem. Chest x-ray stable. The patient is seen today January 21, 2024 in follow-up on the regular medical floor. She is currently sitting up in bed. Awake and alert in no acute distress. She is requiring 5 L/min per nasal cannula to maintain O2 saturations in the 90s. No IV fluids. Chest x-ray no sizable pneumothorax. Right-sided chest tube remains in place. Currently off suction and placed to waterseal. Basilar infiltrates persist right greater than left. Urine culture was positive for E. coli. White count 10.2. Hemoglobin 10.5. Platelets 289. Sodium 139. Potassium 3.5. Bicarb 28. BUN 15. Creatinine 0.5. Glucose 103. He is continued on DuoNeb ventilations, Symbicort. Antibiotics in the form of ertapenem. Heparin for DVT prophylaxis. The patient is seen today January 22, 2024 in follow-up on the regular medical floor. She is resting comfortably in bed. Awake and alert in no acute distress. She is maintaining O2 saturations in the 90s on 4 L/min per nasal cannula. Normal saline at KVO. Her chest tube was clamped this morning. Chest x-ray reveals right-sided chest tube in unchanged position. Sizable pneumot horax not evident. Patchy basilar infiltrates persist. Stable chest. Improving subcutaneous emphysema. Urine culture was positive for ESBL E. coli. WBC 7.9. Hemoglobin 11.5. Platelets 338. Sodium 134. Potassium 3.7. Bicarb 31. BUN 16. Creatinine 0.61. Glucose 109. She remains on DuoNeb inhalations, Symbicort. Antibiotics in the form of ertapenem. The patient is seen today January 23, 2024 in follow-up on the regular medical floor. She is sitting up in bed. Awake and alert in no acute distress. She is maintaining good O2 saturations in the 90s on 4 L/min per nasal cannula. Her chest tube was removed yesterday. Today's chest x-ray reveals a small 20 to 25% right apical pneumothorax. She denies any worsening shortness of breath, cough or congestion. She is working with the incentive spirometer. She is continued on DuoNeb inhalations, Symbicort. Urine culture positive for ESBL E. coli. Remains on antibiotics in the form of ertapenem. Heparin for DVT prophylaxis. No new labs today. The patient is seen today January 24, 2024 in follow-up on the regular medical floor. She is currently resting in bed. Awake and alert in no acute distress. She is requiring 7 L high flow nasal cannula to maintain O2 saturations in the 90s. She has normal staying at KVO. She denies any worsening shortness of breath, cough or congestion. Unfortunately her chest x-ray shows slight progression of the right-sided pneumothorax estimated at 25% and increased laterally. Persistent right upper lobe infiltrate. Improving subcutaneous air. The plan now is for a pigtail catheter insertion per interventional radiology. Urine culture was positive for ESBL E. coli. She remains on ertapenem. Continued on DuoNeb inhalations, Symbicort. Heparin for DVT prophylaxis. The patient is seen today January 25, 2024 in follow-up on the regular medical floor. She is currently resting comfortably in bed. Awake and alert in no acute distress. Maintaining O2 saturations in the 90s on 4 L/min per nasal cannula. She did have a pigtail catheter placed yesterday. This is to Pleur- evac. There is a positive leak. Chest x-ray continues to show a pneumothorax on the right. She remains on DuoNeb ventilations, Symbicort. Heparin for DVT prophylaxis. Remains on Invanz. Urine culture was positive for E. coli, ESBL. No new labs today. The patient is seen today January 26, 2024 in follow-up on the regular medical floor. He is sitting up in bed. Awake and alert in no acute distress. Having some chest wall discomfort from the pigtail catheter insertion site. She is maintaining O2 saturations in the upper 90s on 3-1/2 L/min per nasal cannula. Pigtail catheter does remain in place to Pleur-evac. Still with a small leak. She needs increased encouragement regarding the use of the incentive spirometer. She remains on DuoNeb inhalations, Symbicort. Heparin for DVT prophylaxis. Continued on ertapenem for ESBL E. coli urinary tract infection. Chest x-ray showing a tiny right lung base hydropneumothorax, stable. There is continued reduction in the loculated pneumothorax compared to previous. No new labs today. Objective - Vital Signs Vital signs: Vital Signs Temp 98.2 F 01/26/24 07:32 Pulse 102 H 01/26/24 08:50 Resp 17 01/26/24 07:32 BP 146/84 01/26/24 07:32 Pulse Ox 93 L 01/26/24 08:51 FiO2 44 01/24/24 08:03 Intake & Output 01/25/24 01/26/24 01/26/24 18:59 06:59 18:59 Output Total 260 255 17 Balance -260 -255 -17 Weight 46.5 kg Output: Chest Tube Drainage 50 255 17 Chest Tube Right 25 1 Pleural Catheter Right 25 255 16 Mid-Axillary Chest Urine 210 Other: Voiding Method Indwelling Catheter Indwelling Catheter # Bowel Movements 0 1 1 - Exam GENERAL EXAM: Alert, frail 74-year-old female, on 3.5 L nasal cannula, comfortable in no distress. HEAD: Normocephalic. EYES: Normal reaction of pupils, equal size. NOSE: Clear with pink turbinates. THROAT: No erythema or exudates. NECK: No masses, no JVD. CHEST: No chest wall deformity. LUNGS: Equal air entry with basilar crackles right greater than left. Right- sided pigtail catheter in place to Pleur-evac. Positive leak. CVS: S1 and S2 normal with no audible murmur, regular rhythm. ABDOMEN: No hepatosplenomegaly, normal bowel sounds, no guarding or rigidity. SPINE: No scoliosis or deformity SKIN: No rashes. There was some subcutaneous emphysema CENTRAL NERVOUS SYSTEM: No focal deficits, tone is normal in all 4 extremities. EXTREMITIES: There is no peripheral edema. No clubbing, no cyanosis. Peripheral pulses are intact. - Labs CBC & Chem 7: 01/23/24 07:21 01/23/24 07:21 Assessment and Plan Assessment: Acute right-sided pneumothorax, initially treated with a Thora vent device, and then a 28 Polish chest tube, placed on waterseal 01/21/2024. Removed 01/22/2024. Increasing pneumothorax on 01/24/2024 and now with a pigtail catheter placed. Positive leak. Follow-up chest x-ray today January 26, 2024 reveals stable right- sided pneumothorax smaller in size compared to yesterday. Acute hypoxemic respiratory failure secondary to COPD and right pneumothorax ESBL E. coli urinary tract infection. Currently on ertapenem Mental status changes, improved History of traumatic right-sided pneumothorax 2021 History of severe emphysema Ongoing tobacco use with nicotine addiction History of falls History of medication noncompliance Hypertension Poor overall functional performance based on the above-mentioned multiple comorbidities Anorexia/cachexia syndrome Plan: The patient was seen and evaluated Chest x-ray and medications reviewed Stable improved right-sided pneumothorax Pigtail catheter remains in place, positive leak Titrate the FiO2 as tolerated Continue the current treatment plan Encourage increased use of the incentive spirometer Overall prognosis is quite guarded CODE STATUS to be addressed We will continue to follow I have personally seen and examined the patient, performed the documentation and the assessment and plan as written. Number of minutes spent on the visit: 10.
--- NOTE | 2024-01-26 13:54 | P.PN ---
Subjective Progress Note Date: 01/26/24 History of present illness; 74-year-old female presented to the emergency department with shortness of breath. Patient was brought to the emergency department by EMS, who reported they found her in significant distress sitting in the tripod position and tachypneic. Initial chest x-ray upon arriving in the emergency department showed the patient had a right-sided pneumothorax, for which she had a right-sided Thora vent placed. Following which pulmonology was consulted. Patient was found to be unable to give a great history, as a result of her dyspnea as well as elements of possible delirium or possible dementia. Her past medical history is significant for previous traumatic pneumothorax in April 2022, chronic hypoxemic respiratory failure on home oxygen, tobacco dependence and COPD for which she takes fluticasonesalmeterol and DuoNeb. Upon admission to the emergency department her oxygen saturation was 93 on BiPAP and respiratory rate was 30, currently is satting at 96% on 3 L nasal cannula. ABG completed this morning showed pCO2 of 59, pO2 59, HCO3 of 34, ABG O2 saturation of 91.2. Some difficulties in communicating/asking questions to the patient, due to either difficulty hearing or potentially not understanding, as the patient would occasionally answer questions that were not being asked. Patient did know she was in [place], however she was unaware of how she arrived to the hospital or that she had been in the emergency department. Initial lab work done in the ER showed CO2 of 31, BUN of 35 and a glucose of 200. CBC and CMP unremarkable. Troponin less than 0.012. NT proBNP 207. EKG done in the ER showed heart rate of 90, normal sinus rhythm, and possible left atrial enlargement and left ventricular hypertrophy. Initial chest x-ray done in the ER showed a right sided basal pneumothorax, along with trace bilateral pleural effusions and flattening of the diaphragms consistent with COPD. 01/17 - Patient seen at bedside in the ICU today, where she was moved early this morning as a result of worsening shortness of breath and increasing oxygen demand due to significant subcutaneous emphysema. She was placed on AirVo high flow nasal canulla and a right thoracostomy tube was placed by Dr. Rincon with re-expansion of the right lung, without evidence of a pneumothorax and subcutaneous emphysema throughout the thorax, per chest X ray this morning follo wing thoracostomy. She was initially placed on AirVo high flow nasal canulla, following use of a non re-breather, where she began at 55 LPM with an FiO2 of 90%, she has been weened to 45 LPM with an FiO2 of 80% as of this afternoon. When visiting bedside patient had just taken a Dilaudid and was resting in bed. Switched from Dilaudid to Toradol for pain control as the result of the grogginess caused on the Dilaudid. Patient had no current complaints. Labs drawn today - WBCs of 11.8, BUN of 46 01/18 -patient seen at bedside in the ICU today. She appears better today, more awake and very pleasant to interact with, she seems to have increased appetite as she had eaten most of her breakfast prior to my arrival. She states that she has no current complaints. Her visible subcutaneous emphysema above the right clavicle has improved significantly. Overnight patient was weaned on her high flow nasal cannula, presenting with an oxygen saturation of 98% receiving 45 LPM and an FiO2 of 60%. Currently she has been weaned further, having oxygen saturation 99% while receiving 40 LPM and FiO2 of 55%. Chest x-ray this morning (01/18) showed no evidence of pneumothorax, with a small right thoracotomy tube with subcutaneous gas throughout the thorax subcutaneous tissues. Labs drawn today - WBCs of 6.7, Hgb of 11.1, BUN of 44 01/20 - Patient seen at bedside today, she is no longer in the ICU. She looks more awake and alert today, and has continued to look a little better over the past couple of days. She states she is feeling better. When seen today she was sitting in her chair, as opposed on the bed. She is currently on 4 L nasal cannula saturating in the high 90s. Her visible subcutaneous emphysema has improved significantly. Sided chest tube remains to continuous wall suction, with no airleak present for 48 hours. Her chest x-ray showed no pneumothorax present, subcutaneous emphysema present but less, with some patchy density in the right lower lobe. 20 mg IV Lasix given, due to the patchiness possibly being a result of fluid accumulation. Her urine was positive for gram-negative organisms, Escherichia coli. Procalcitonin was elevated at 0.13. Indications are it is an ESBL E. coli, she has been switched from Rocephin to ertapenem. PT/OT consulted. Labs drawn today -WBCs 10.26, Hgb 10.5, Hct 33.3, Neutrophils 8.58, calcium 8.5 01/21 - Patient seen at bedside today. She is continue to look better, while still appearing quite frail, she has had much more energy and been excited to converse in the morning. Continues to state that she is feeling better with her breathing while remaining on 4 L nasal cannula and her last reported oxygen saturation was 98% on the 4 L nasal cannula. Her visible subcutaneous emphysema has improved significantly, has almost completely resolved. Right-sided chest tube remains connected to continuous wall suction, with no airleak present. Chest x-ray done this morning showed an overall stable chest following the administration of 20 mg IV Lasix yesterday. She continues receiving breathing treatments via her Symbicort inhaler and her DuoNeb. She continues to receive Toradol for pain. And continues receiving ertapenem IV. PT/OT both saw the patient yesterday, recommended daily treatments. PT/OT both consulted for daily treatment. Labs drawn today -WBCs 7.9, Hgb 11.5, Hct 35.8, sodium 134 Imaging done today - chest x-ray showing and overall stable chest. 01/22 - Patient seen at bedside today. She states that this morning she has had some increased difficulty breathing and that she is "just not feeling all that great". She was saturating at 91% on 4 L nasal cannula at 8:26 AM. Patient remains afebrile. Patient's chest tube was removed yesterday, 01/21, by surgery. Chest x-ray today shows chest tube has been removed and there is recurrence of right-sided pneumothorax estimated 2024%. Noting the apical pleural distance right upper lobe is 1.6 cm, at the mid lung 8 mm and at the right lung base 2.6 cm. Pulmonology continues to see the patient. as per infectious disease, the patient will continue with 1 g ertapenem daily. Patient will continue with her Symbicort and DuoNeb, as per pulmonology. Labs drawn today - ordered and currently pending at time of dictation. Imaging done today - chest x-ray showed right-sided chest tube has been removed with recurrence of right-sided pneumothorax estimating at 20-25%. Noting apical pleural distance right upper lobe 1.6 cm, at the mid lung 8 mm and at the right lung base 2.6 cm 01/23 - Patient seen at bedside today. Earlier this morning patient had episodes of her saturations dropping into the 80s, throughout various increases in the amount of oxygen through nasal cannula. She is currently on 7 L nasal cannula with saturation in her mid 90s. She has endured some of these similar fluctuations even during the time in which her chest tube was then. When seen her this morning she had a appears comfortable, and does not have any current complaints. Subcutaneous emphysema which was present above her right clavicle has improved significantly, is not noticeable. Unfortunately her x-ray over the last couple of days have shown the recurrence of right-sided pneumothorax, today estimated at approximately 25%. Plan is for IR to place a pigtail put on wall suction to help lung expand. Labs drawn today - none. Imaging done today -chest x-ray done today showed slight progression of right- sided pneumothorax estimated approximately 25%. 01/24 - Patient seen at bedside today. She is resting more comfortably today than yesterday. Status post pigtail catheter insertion by interventional radiology yesterday. She is currently resting on the 4 and half liters of high flow nasal cannula saturating at 92%. Chest x-ray today showed persistent right-sided pneumothorax smaller in size than seen on previous x-ray with interval placement of a pleural catheter. CT-guided insertion of a right-sided chest tube completed on 01/23. Per Dr. Zhu, patient will continue with ertapenem 1 g daily, and continue to monitor clinical course close closely. Patient has continued to be afebrile. Labs drawn today - None. Imaging none today - chest x-ray done today showed persistent right-sided pneumothorax smaller in size than seen on previous x-ray with interval placement of pleural catheter. 01/25 - Patient seen at bedside today. Per the patient's nurse, she began to desaturate and was placed on a nonrebreather. Upon seeing her in the room, respiratory therapy was later and had placed her on nasal cannula up to 13 L prior to beginning a breathing treatment. Patient herself states that she was having a lot of difficulty breathing. Status post pigtail catheter insertion interventional radiology 2 days ago. She is currently on 3 Liters nasal cannula saturating 97%, blood pressure 130/76, heart rate of 81. Chest x-ray today s howed tiny right lung base hydropneumothorax persists. There has been interval reduction in the loculated pneumothorax compared to previous. She remains on DuoNeb ventilations and Symbicort per pulmonology's recommendation. Continues with ertapenem per infectious disease recommendation. Upon seeing her later in the morning she looked a bit more like she did the previous day. Labs from today - None. Imaging done today - chest x-ray done today showed tiny right lung base hydropneumothorax persists. There has been interval reduction in the loculated pneumothorax compared to previous. REVIEW OF SYSTEMS: CONSTITUTIONAL: No fever, no malaise. CARDIOVASCULAR: No chest pain, no palpitations, no syncope. PULMONARY: No shortness of breath, no cough. GASTROINTESTINAL: As stated above. GENITOURINARY: Carvajal present draining clear yellow urine. NEUROLOGICAL: No headaches, no weakness. PHYSICAL EXAMINATION: GENERAL: Awake and alert, not in any acute distress. Very frail appearing. HEENT: Pupils are round and equally reacting to light. EOMI. No scleral icterus. No conjunctival pallor. Normocephalic, atraumatic. No pharyngeal erythema. No thyromegaly. CARDIOVASCULAR: S1 and S2 present. No murmurs, rubs, or gallops. PULMONARY: Equal air entry with some crackles noted on the right. Right-sided chest tube placed. On 3 and half liters nasal cannula saturating 97%. ABDOMEN: Soft, nontender, nondistended, normoactive bowel sounds. No palpable organomegaly. MUSCULOSKELETAL: No joint swelling or deformity. EXTREMITIES: No edema, no cyanosis, or clubbing. NEUROLOGICAL: Gross neurological examination did not reveal any focal deficits. Alert and oriented, has continued appearing less confused. SKIN: No rashes. Assessment and plan 1. Right-sided basal pneumothorax Right-sided Thora vent placed in the emergency department This present and connected to the atrium with continuous wall suction, without airleak Surgery ordered incentive spirometry and encourage use Increase activity as tolerated PT and OT referred by surgery PT and OT have been consulted to see the patient daily to help her build up strength Pigtail catheter inserted by IR on 01/23 2. Acute hypoxic respiratory failure secondary to right-sided pneumothorax On arrival O2 sat 93% and 91.2% on ABG Hypoxia has resolved following resolution of pneumothorax on 3 L nasal cannula She is continuing to receive Symbicort, DuoNeb, Zithromax and prednisone; Zithromax discontinued on 01/17, Rocephin IV started - Another episode of hypoxic respiratory failure early on 01/17 lead to admission to ICU where right thoracostomy tube was placed by Dr. Rincon. - Continue chest tube with continuous wall suction - Chest X ray taken after the placement of the thoracostomy tube showed it present, without evidence of a pneumothorax. - Chest X ray (01/20) showed no sizable pneumothorax, the chest tube port may be outside of the chest, subcutaneous air noted along the right chest wall. Patchy density right lower lobe and to a lesser extent left lower lobe persist. Chest tube removed on 01/21 Chest x-ray on 01/22 noted that the chest tube had been removed and there was recurrence of right-sided pneumothorax estimating 20-25%. Patient's saturations have fluctuated this morning on varying amounts of oxygen. Currently on 7 L nasal cannula saturating at 93%. Chest x-ray on 01/22 noted right-sided pneumothorax progression estimated 25%. Plan is currently for IR to place a pigtail catheter. CT-guided chest tube placement on 01/23, chest x-ray noted persistent right- sided pneumothorax smaller in size than on previous x-ray with interval pl acement of pleural catheter. Patient currently on 4.5 L high flow nasal cannula saturating 92%. Patient is currently on 3.5 L nasal cannula saturating 97%. Morning of 01/25 per the patient's nurse, she desaturated and was placed on a nonrebreather and respiratory therapy was called, they had her on 13 L nasal cannula and patient was receiving a breathing treatment when seen that morning. 3. Chronic and ongoing tobacco dependence She continues to smoke and removes her oxygen due so She has been encouraged to stop, however has not been compliant 4. Oxygen dependent chronic COPD/emphysema Uses DuoNeb and fluticasonesalmeterol at home - Per pulmonology note from her stay 1 month ago she is inconsistent in using her medications Remains on 3 L nasal cannula at home Per pulmonology COPD is stable 5. Low BMI, moderate malnutrition Patient's BMI estimated at 17.2 Poor dietary intake recorded, nutritional assessment by dietitian Per dietitian recommendations she will be given Ensure Enlive 3 times daily - Encourage Boost TID between meals. 6. ESBL Escherichia coli positive urinary tract infection UA completed on 01/17 showed urine turbid appearance, positive urine nitrates, greater than 182 urine WBCs, many urine WBC clumps, many urine bacteria Patient has been afebrile since arrival WBCs on labs drawn on 01/17 were elevated at 11.8, however on 01/18 were 6.7 - Zithromax 500 mg daily discontinued, patient started on Rocephin IV for 3 days Procalcitonin ordered; procalcitonin elevated at 0.13 - ESBL E. coli, Rocephin was stopped, patient was started on ertapenem on 01/19 Patient continues to be afebrile, per Dr. Zhu's recommendation patient will continue on 1 g ertapenem daily Monitor vital signs Monitor oxygen levels Monitor CBC Monitor CMP Encourage use of incentive spirometry Labs and medication were reviewed. Continue with symptomatic treatment. Resume home medication. Monitor labs and vitals. DVT and GI prophylaxis. Further recommendations as per clinical course of the patient Dictation was produced using [employer] dictation software. please excuse any grammatical, word or spelling errors. The impression and plan of care has been dictated by , resident as directed. I have performed a history and physical examination and medical decision making of this patient, discussed the same with the dictator, and agree with the d ictators assessment and plan as written, documented as a scribe. Based on total visit time, I have performed more than 50% of this visit. Dr. Loy Polo MD FACP Objective - Vital Signs Vital signs: Vital Signs Temp 97.6 F 01/26/24 01:17 Pulse 81 01/26/24 01:17 Resp 18 01/26/24 01:17 BP 130/76 01/26/24 01:17 Pulse Ox 97 01/26/24 01:17 FiO2 44 01/24/24 08:03 Intake & Output 01/25/24 01/26/24 01/26/24 18:59 06:59 18:59 Output Total 260 255 Balance -260 -255 Weight 46.5 kg Output: Chest Tube Drainage 50 255 Chest Tube Right 25 Pleural Catheter Right 25 255 Mid-Axillary Chest Urine 210 Other: Voiding Method Indwelling Catheter Indwelling Catheter # Bowel Movements 0 1 - Labs CBC & Chem 7: 01/23/24 07:21 01/23/24 07:21
--- NOTE | 2024-01-26 15:08 | P.PN ---
Subjective Progress Note Date: 01/26/24 Principal diagnosis: Reason for follow-up is ESBL E. coli urinary tract infection Patient is a 74-year-old female with a past medical history significant for COPD hypertension anxiety depression current everyday smoker, patient presenting to the hospital with increasing shortness of breath has been diagnosed with a pneumothorax status post right-sided chest tube also have a positive UA with urine culture positive for ESBL prompted this consultation. On today's evaluation that is 01/26/2024,the patient denies any fever or any chills, patient is breathing comfortably on r 7 L nasal cannula oxygen the patient denies chest pain shortness of breath and no worsening cough, patient denies abdominal pain, no nausea vomiting or diarrhea. Patient no new labs were obtained today Objective - Vital Signs Vital signs: Vital Signs Temp 98.2 F 01/26/24 07:32 Pulse 86 01/26/24 13:13 Resp 17 01/26/24 07:32 BP 146/84 01/26/24 07:32 Pulse Ox 94 L 01/26/24 13:06 FiO2 44 01/24/24 08:03 Intake & Output 01/25/24 01/26/24 01/26/24 18:59 06:59 18:59 Output Total 260 255 846 Balance -260 -255 -846 Weight 46.5 kg Output: Chest Tube Drainage 50 255 26 Chest Tube Right 25 Pleural Catheter Right 25 255 26 Mid-Axillary Chest Urine 210 820 Other: Voiding Method Indwelling Catheter Indwelling Catheter Indwelling Catheter # Bowel Movements 0 1 1 - Exam GENERAL DESCRIPTION: An elderly female lying in bed in no distress RESPIRATORY SYSTEM: Unlabored breathing , decreased breath sounds at bases HEART: S1 S2 regular rate and rhythm , ABDOMEN: Soft , no tenderness EXTREMITIES: No edema feet - Labs CBC & Chem 7: 01/23/24 07:21 01/23/24 07:21 Assessment and Plan (1) Infection due to ESBL-producing Escherichia coli Current Visit: Yes Status: Acute Code(s): A49.8 - OTHER BACTERIAL INFECTIONS OF UNSPECIFIED SITE; Z16.12 - EXTENDED SPECTRUM BETA LACTAMASE (ESBL) RESISTANCE SNOMED Code(s): 296842071 (2) UTI (urinary tract infection) Current Visit: No Status: Acute Code(s): N39.0 - URINARY TRACT INFECTION, S ITE NOT SPECIFIED SNOMED Code(s): 77529334 Plan: 1patient with initial presentation to the hospital for increasing shortness of breath patient did have a significantly positive UA from urinary symptoms concerning for symptomatic urinary tract infection 2-patient has been afebrile and white count has been normal to continue with Invanz and monitor clinical course closely Dictation was produced using [employer] dictation software. please excuse any grammatical, word or spelling errors. Time with Patient: Less than 30
--- NOTE | 2024-01-27 07:12 | XR ---
EXAMINATION TYPE: XR chest 1V portable DATE OF EXAM: 01/27/2024 COMPARISON: 01/26/2024 HISTORY: Follow-up right-sided pneumothorax TECHNIQUE: Single frontal view of the chest is obtained. FINDINGS: There is a pleural space pigtail drainage catheter in the right lung base. There is a tiny right pleu ral effusion but no pneumothorax. There is marked COPD. Heart and pulmonary vasculature are normal. The osseous structures are intact. IMPRESSION: 1. Resolution of the right lung base loculated pneumothorax with no change in the drainage catheter. 2. Marked COPD.
--- NOTE | 2024-01-27 09:40 | P.PN ---
Subjective Progress Note Date: 01/27/24 Principal diagnosis: Spontaneous right-sided pneumothorax, second occurrence, status post placement of thoravent. History of right-sided pneumothorax in April 2022, chronic hypo xemic respiratory failure on home oxygen, COPD, tobacco dependence, hypertension, frequent falls, depression Acute hypoxic respiratory failure secondary to increased right sided pneumothorax with significant subcutaneous emphysema, status post right thoracostomy tube placement by Dr. Rincon, and postoperative day #2 right pigtail catheter placement by interventional radiology. The patient was seen and examined in follow-up today January 27, 2024 at her bedside on the fourth floor medical surgical unit. She is currently laying in bed, is awake, alert, oriented x 3 and is in no acute apparent distress. Patient is hard of hearing. Denies any complaints of shortness of breath or pain at this time. Right chest pigtail catheter remains in place with low continuous wall suction -20 cm H2O. Continuous airleak is present. Draining thin serosanguineous drainage with 50 mL of output in the last 24 hours. Chest x-ray results reviewed, small right apical pneumothorax. Oxygen saturations are 96% on 1 L nasal cannula and she is achieving 1000 mL on her incentive spirometry with encouragement. Objective - Vital Signs Vital signs: Vital Signs Temp 98.2 F 01/27/24 07:31 Pulse 80 01/27/24 07:54 Resp 16 01/27/24 07:54 BP 138/78 01/27/24 07:31 Pulse Ox 96 01/27/24 07:31 FiO2 44 01/24/24 08:03 Intake & Output 01/26/24 01/27/24 01/27/24 18:59 06:59 18:59 Output Total 1250 418 16 Balance -1250 -418 -16 Weight 46.5 kg Output: Chest Tube Drainage 30 68 16 Pleural Catheter Right 30 68 16 Mid-Axillary Chest Urine 1220 350 Uretheral (Carvajal) 200 Other: Voiding Method Indwelling Catheter Indwelling Catheter Indwelling Catheter # Bowel Movements 1 - Exam CONSTITUTIONAL: Awake and alert, no pain, no acute distress, cachectic, appears very frail. RESPIRATORY: Lungs sounds diminished bilaterally, right greater than left. Respirations symmetrical, nonlabored. Currently on 1 L nasal cannula with ox ygen saturation 96%. Achieving 1000 mL on her incentive spirometry with much encouragement. Strong loose cough. Right pigtail catheter in place to low continuous wall suction -20 cm H2O. No air leak is present. Draining thin serosanguineous drainage with 50 mL output in the last 24 hours. CARDIOVASCULAR: S1, S2 present. Regular rate and rhythm. Palpable peripheral pulses bilaterally. GASTROINTESTINAL: Abdomen soft, nontender, nondistended without masses or organomegaly noted. There is no rebound or guarding present. Active bowel sounds present 4 quadrants. Bowel movement 01/26/24 GENITOURINARY: Carvajal present draining clear yellow urine. INTEGUMENTARY: Skin is warm and dry. No clubbing or cyanosis is present. NEUROLOGIC: Cranial nerves II through XII intact. MUSKULOSKELETAL: Able to move all extremities, generalized weakness. PSYCHIATRIC: Alert and oriented to person, hard of hearing. - Allied health notes Allied health notes reviewed: nursing - Labs CBC & Chem 7: 01/23/24 07:21 01/23/24 07:21 - Imaging and Cardiology Chest x-ray: report reviewed, image reviewed Assessment and Plan Assessment: Spontaneous right-sided pneumothorax, second occurrence, S/P thoravent by the ER physicians Acute hypoxic respiratory failure secondary to increased right PTX with significant subq emphysema, S/P placement of right thoracostomy tube by Dr. Rincon,, status post right pigtail catheter placement by interventional radiology History of right-sided pneumothorax in April 2022 Chronic hypoxemic respiratory failure on home oxygen COPD Tobacco dependence Hypertension Frequent falls Depression Medical debility Plan: Keep right pigtail catheter in place, to low continuous wall suction -20 cm H2O. Continue to monitor for airleak resolution. Wean oxygen as tolerated, encourage incentive spirometry 10 times every hour while awake, bronchodilators/steroids per pulmonology. Will monitor daily chest x-rays. Increase activity as tolerated, PT/OT following. Out of bed for all meals. Medical management of other comorbidities per internal medicine, pulmonology. Poor prognosis, consider palliative care. More recommendations to follow based on patient's clinical course. Time with Patient: Less than 30
--- NOTE | 2024-01-27 11:45 | P.PN ---
Subjective Progress Note Date: 01/27/24 Progress note dated January 19, 2024. 74-year-old female who was initially seen in consultation on January 16. She had a follow-up with no yesterday. Yesterday, because of a recurrent and more significant right-sided pneumothorax, a chest tube was placed. A 28 Pashto chest tube was placed on the right side without difficulty. Currently, she is on Airvo, at 40 L/min with an FiO2 55%. She is getting saline at 75 cc an hour. The chest tube was noted to be in proper position on chest x-ray. There is no leak noted. The chest tube remains on suction. Cardiothoracic surgery is following the patient also. Current laboratory includes a white count 6.7, hemoglobin 11.1, hematocrit 35.7, and a normal platelet count. Sodium 140, potassium 4.5, chlorides 107, CO2 29, BUN 44, creatinine 0.69. Glucose is 123. Calcium 8.7. Urine is showing gram-negative bacilli. It has yet to be identified. The patient continues on Rocephin. Other important medications include Symbicort, and DuoNeb, as well as prednisone 40 mg. Progress note dated January 20, 2024. 74-year-old female seen initially in consultation on January 16. The patient was seen yesterday in the intensive care unit, and then again today in the intensive care unit. She is in room 254. She is doing much better today. She is down to 2 L of oxygen. She is getting saline at 75 cc an hour. Her urine shows gram- negative organisms, and she is currently on Rocephin. She is clinically feeling better. Her chest x-ray is stable. There is no air leak from the right side. Current labs include a white count 9.4, hemoglobin 9.9, hematocrit 32, and platelet count of 280,000. Sodium 141, potassium 3.7, chlorides 110, CO2 30, BUN 29, and creatinine 0.71. Procalcitonin level was 0.13. Urine was positive for Escherichia coli. It is an ESBL E. coli, and she will need to be switched to ertapenem. Chest x-ray stable. The patient is seen today January 21, 2024 in follow-up on the regular medical floor. She is currently sitting up in bed. Awake and alert in no acute distress. She is requiring 5 L/min per nasal cannula to maintain O2 saturations in the 90s. No IV fluids. Chest x-ray no sizable pneumothorax. Right-sided chest tube remains in place. Currently off suction and placed to waterseal. Basilar infiltrates persist right greater than left. Urine culture was positive for E. coli. White count 10.2. Hemoglobin 10.5. Platelets 289. Sodium 139. Potassium 3.5. Bicarb 28. BUN 15. Creatinine 0.5. Glucose 103. He is continued on DuoNeb ventilations, Symbicort. Antibiotics in the form of ertapenem. Heparin for DVT prophylaxis. The patient is seen today January 22, 2024 in follow-up on the regular medical floor. She is resting comfortably in bed. Awake and alert in no acute distress. She is maintaining O2 saturations in the 90s on 4 L/min per nasal cannula. Normal saline at KVO. Her chest tube was clamped this morning. Chest x-ray reveals right-sided chest tube in unchanged position. Sizable pneumot horax not evident. Patchy basilar infiltrates persist. Stable chest. Improving subcutaneous emphysema. Urine culture was positive for ESBL E. coli. WBC 7.9. Hemoglobin 11.5. Platelets 338. Sodium 134. Potassium 3.7. Bicarb 31. BUN 16. Creatinine 0.61. Glucose 109. She remains on DuoNeb inhalations, Symbicort. Antibiotics in the form of ertapenem. The patient is seen today January 23, 2024 in follow-up on the regular medical floor. She is sitting up in bed. Awake and alert in no acute distress. She is maintaining good O2 saturations in the 90s on 4 L/min per nasal cannula. Her chest tube was removed yesterday. Today's chest x-ray reveals a small 20 to 25% right apical pneumothorax. She denies any worsening shortness of breath, cough or congestion. She is working with the incentive spirometer. She is continued on DuoNeb inhalations, Symbicort. Urine culture positive for ESBL E. coli. Remains on antibiotics in the form of ertapenem. Heparin for DVT prophylaxis. No new labs today. The patient is seen today January 24, 2024 in follow-up on the regular medical floor. She is currently resting in bed. Awake and alert in no acute distress. She is requiring 7 L high flow nasal cannula to maintain O2 saturations in the 90s. She has normal staying at KVO. She denies any worsening shortness of breath, cough or congestion. Unfortunately her chest x-ray shows slight progression of the right-sided pneumothorax estimated at 25% and increased laterally. Persistent right upper lobe infiltrate. Improving subcutaneous air. The plan now is for a pigtail catheter insertion per interventional radiology. Urine culture was positive for ESBL E. coli. She remains on ertapenem. Continued on DuoNeb inhalations, Symbicort. Heparin for DVT prophylaxis. The patient is seen today January 25, 2024 in follow-up on the regular medical floor. She is currently resting comfortably in bed. Awake and alert in no acute distress. Maintaining O2 saturations in the 90s on 4 L/min per nasal cannula. She did have a pigtail catheter placed yesterday. This is to Pleur- evac. There is a positive leak. Chest x-ray continues to show a pneumothorax on the right. She remains on DuoNeb ventilations, Symbicort. Heparin for DVT prophylaxis. Remains on Invanz. Urine culture was positive for E. coli, ESBL. No new labs today. The patient is seen today January 26, 2024 in follow-up on the regular medical floor. He is sitting up in bed. Awake and alert in no acute distress. Having some chest wall discomfort from the pigtail catheter insertion site. She is maintaining O2 saturations in the upper 90s on 3-1/2 L/min per nasal cannula. Pigtail catheter does remain in place to Pleur-evac. Still with a small leak. She needs increased encouragement regarding the use of the incentive spirometer. She remains on DuoNeb inhalations, Symbicort. Heparin for DVT prophylaxis. Continued on ertapenem for ESBL E. coli urinary tract infection. Chest x-ray showing a tiny right lung base hydropneumothorax, stable. There is continued reduction in the loculated pneumothorax compared to previous. No new labs today. The patient is seen today January 27, 2024 in follow-up on the regular medical floor. She is awake and alert in no acute distress. She is maintaining O2 saturations in the 90s on 1 L/min per nasal cannula. Right-sided pigtail catheter remains in place to Pleur-evac and wall suction. Continues with a positive leak. Minimal pneumothorax on chest x-ray. Less subcutaneous emphysema. She remains on bronchodilators. Heparin for DVT prophylaxis. To biotics in the form of ertapenem for her ESBL E. coli urinary tract infection. Objective - Vital Signs Vital signs: Vital Signs Temp 98.2 F 01/27/24 07:31 Pulse 80 01/27/24 07:54 Resp 16 01/27/24 07:54 BP 138/78 01/27/24 07:31 Pulse Ox 96 01/27/24 07:31 FiO2 44 01/24/24 08:03 Intake & Output 01/26/24 01/27/24 01/27/24 18:59 06:59 18:59 Output Total 1250 418 16 Balance -1250 -418 -16 Weight 46.5 kg Output: Chest Tube Drainage 30 68 16 Pleural Catheter Right 30 68 16 Mid-Axillary Chest Urine 1220 350 Uretheral (Carvajal) 200 Other: Voiding Method Indwelling Catheter Indwelling Catheter Indwelling Catheter # Bowel Movements 1 - Exam GENERAL EXAM: Alert, frail 74-year-old female, on 1 L nasal cannula, in no distress. HEAD: Normocephalic. EYES: Normal reaction of pupils, equal size. NOSE: Clear with pink turbinates. THROAT: No erythema or exudates. NECK: No masses, no JVD. CHEST: No chest wall deformity. LUNGS: Equal air entry with basilar crackles right greater than left. Right- sided pigtail catheter in place to Pleur-evac. Positive leak. CVS: S1 and S2 normal with no audible murmur, regular rhythm. ABDOMEN: No hepatosplenomegaly, normal bowel sounds, no guarding or rigidity. SPINE: No scoliosis or deformity SKIN: No rashes. There was some subcutaneous emphysema CENTRAL NERVOUS SYSTEM: No focal deficits, tone is normal in all 4 extremities. EXTREMITIES: There is no peripheral edema. No clubbing, no cyanosis. Peripheral pulses are intact. - Labs CBC & Chem 7: 01/23/24 07:21 01/23/24 07:21 Assessment and Plan Assessment: Acute right-sided pneumothorax, initially treated with a Thora vent device, and then a 28 Pashto chest tube, placed on waterseal 01/21/2024. Removed 01/22/2024. Increasing pneumothorax on 01/24/2024 and now with a pigtail catheter placed. Positive leak. Follow-up chest x-ray today January 27, 2024 reveals stable right- sided pneumothorax smaller in size. Acute hypoxemic respiratory failure secondary to COPD and right pneumothorax ESBL E. coli urinary tract infection. Currently on ertapenem Mental status changes, improved History of traumatic right-sided pneumothorax 2021 History of severe emphysema Ongoing tobacco use with nicotine addiction History of falls History of medication noncompliance Hypertension Poor overall functional performance based on the above-mentioned multiple comorbidities Anorexia/cachexia syndrome Plan: The patient was seen and evaluated Chest x-ray and medications reviewed Stable improved right-sided pneumothorax Pigtail catheter remains in place, positive leak Encourage increased use of the incentive spirometer Overall prognosis is quite guarded We will continue to follow I have personally seen and examined the patient, performed the documentation and the assessment and plan as written. Number of minutes spent on the visit: 10.
--- NOTE | 2024-01-27 11:47 | CT ---
EXAMINATION TYPE: CT chest wo con DATE OF EXAM: 01/27/2024 COMPARISON: 01/24/2024 HISTORY: chest tube CT DLP: 272.4 mGycm. Automated Exposure Control for Dose Reduction was Utilized. TECHNIQUE: CT scan of the thorax is performed without IV contrast. FINDINGS: There is a pigtail drainage catheter in the right lateral pleural space. There tiny loculated pneumot horaces in the lower anterior thorax and in the mid upper lateral thorax. There is no change in the bilateral lower lobe airspace consolidations and small effusions. There is marked emphysematous change with upper lobe predominance. There is stable aneurysmal dilatation of the ascending thoracic aorta which measures 4 cm. There is no mediastinal, hilar or axillary adenopathy. Limited scanning through the upper abdomen reveals no gross abnormality. No focal osseous lesions are seen. IMPRESSION: 1. Right-sided pigtail pleural drainage catheter unchanged in position. 2. Marked reduction in the large right pneumothorax.. Tiny loculated pneumothoraces persist as indica dino above. 3. No change in the moderate right basilar infiltrates and effusions. 4. Marked emphysema. 5. No change in the 4 cm dilatation of the ascending thoracic aorta.
[2024-01-27] MEDS: FOLIC ACID 1 MG TAB PO SCH (15:22)
--- NOTE | 2024-01-27 17:22 | P.PN ---
Subjective Progress Note Date: 01/27/24 Principal diagnosis: Reason for follow-up is ESBL E. coli urinary tract infection Patient is a 74-year-old female with a past medical history significant for COPD hypertension anxiety depression current everyday smoker, patient presenting to the hospital with increasing shortness of breath has been diagnosed with a pneumothorax status post right-sided chest tube also have a positive UA with urine culture positive for ESBL prompted this consultation. On today's evaluation that is 01/27/2024,the patient remains to be afebrile, patient is on 3 L cannula supplemental oxygen and denies any shortness of breath no chest pain or any worsening cough.Patient denies having any nausea or vomiting, no abdominal pain and no diarrhea has been reported. No new lab has been obtained today Objective - Vital Signs Vital signs: Vital Signs Temp 97.9 F 01/27/24 13:23 Pulse 75 01/27/24 16:31 Resp 18 01/27/24 16:31 BP 138/78 01/27/24 13:23 Pulse Ox 96 01/27/24 13:23 FiO2 44 01/24/24 08:03 Intake & Output 01/26/24 01/27/24 01/27/24 18:59 06:59 18:59 Output Total 1250 418 30 Balance -1250 -418 -30 Weight 46.5 kg Output: Chest Tube Drainage 30 68 30 Pleural Catheter Right 30 68 30 Mid-Axillary Chest Urine 1220 350 Uretheral (Carvajal) 200 Other: Voiding Method Indwelling Catheter Indwelling Catheter Indwelling Catheter # Bowel Movements 1 - Exam GENERAL DESCRIPTION: An elderly female lying in bed in no distress RESPIRATORY SYSTEM: Unlabored breathing , decreased breath sounds at bases HEART: S1 S2 regular rate and rhythm , ABDOMEN: Soft , no tenderness EXTREMITIES: No edema feet - Labs CBC & Chem 7: 01/23/24 07:21 01/23/24 07:21 Assessment and Plan (1) Infection due to ESBL-producing Escherichia coli Current Visit: Yes Status: Acute Code(s): A49.8 - OTHER BACTERIAL INFECTIONS OF UNSPECIFIED SITE; Z16.12 - EXTENDED SPECTRUM BETA LACTAMASE (ESBL) RESISTANCE SNOMED Code(s): 237849912 (2) UTI (urinary tract infection) Current Visit: No Status: Acute Code(s): N39.0 - URINARY TRACT INFECTION, SITE NOT SPECIFIED SNOMED Code(s): 83646678 Plan: 1patient with initial presentation to the hospital for increasing shortness of breath patient did have a significantly positive UA from urinary symptoms concerning for symptomatic urinary tract infection 2-patient has been afebrile and white count has been normal 3patient to continue with Invanz to finish her course of therapy and monitor clinical course closely Dictation was produced using [employer] dictation software. please excuse any grammatical, word or spelling errors. Time with Patient: Less than 30
--- NOTE | 2024-01-28 05:15 | PN ---
PROGRESS NOTE DATE OF SERVICE: 01/27/2024 SUBJECTIVE: This 74-year-old woman who was admitted with COPD exacerbation, recurrent right pneumothorax, had CAT scan of the chest today, which showed right-sided pigtail pleural drainage and marked reduction of the right pneumothorax. OBJECTIVE: VITAL SIGNS: Pulse is 79, blood pressure 130/72, respirations 18. CHEST: Few scattered rhonchi. ABDOMEN: Soft. NERVOUS SYSTEM: Nonfocal. Right chest tube. LABORATORY DATA: Reviewed. ASSESSMENT: 1. Chronic obstructive pulmonary disease acute exacerbation with recurrent right pneumothorax on chest tube drainage. 2. Bullous emphysema. 3. Malnutrition. 4. Multiple complex medical issues. RECOMMENDATIONS AND DISCUSSION: Recommended to continue current management. Continue with symptomatic treatment. Continue the bronchodilators and rest of medications. Continue with the catheter drainage. Otherwise, closely follow with multiple consultants. Prognosis guarded. Further recommendations to follow. MMTATUML / SIDNEYN: [id number] /
--- NOTE | 2024-01-28 07:42 | XR ---
EXAMINATION TYPE: XR chest 1V portable DATE OF EXAM: 01/28/2024 HISTORY: Follow-up pneumothorax COMPARISON: 01/27/2024 TECHNIQUE: Single view of the chest is submitted. FINDINGS: Right-sided pleural catheter is redemonstrated. No sizable pneumothorax is evident at this time. Pers istent patchy infiltrate right lower lobe with tiny effusion. The heart is stable. Hilar and mediastinal structures are within normal limits. Degenerative changes are seen of the dorsal spine. IMPRESSION: 1. Right-sided pleural catheter is redemonstrated. No sizable pneumothorax is evident at this time. Persistent patchy infiltrate right lower lobe with tiny effusion.
[2024-01-28] MEDS: CHOLECALCIFEROL 25 MCG (1000 IU) TABLET PO SCH (08:23)
[2024-01-28 08:47] LABS: Basophils # (A) 0.08 X 10*3/uL (0.00-0.10); Eosinophils # (A) 0.19 X 10*3/uL (0.04-0.35); Eosinophils % (A) 2.3 %; HCT 33.6 % (37.2-46.3); HGB 10.2 g/dL (12.0-15.0); Lymphocytes # (A) 1.99 X 10*3/uL (0.90-5.00); Lymphocytes % (A) 23.7 %; MCH 27.9 pg (27.0-32.0); MCHC 30.4 g/dL (32.0-37.0); MCV 92.1 FL (80.0-97.0); Mean Platelet Volume 9.7 FL (9.5-12.2); Monocytes % (A) 7.2 %; NRBC Per 100 WBC 0 X 10*3/uL (0.00-0.01); Neutrophils # (A) 5.12 X 10*3/uL (1.80-7.70); Platelet Count 306 X 10*3/uL (140-440); RBC 3.65 X 10*6/uL (4.10-5.20); RDW 16.1 % (11.5-14.5); WBC 8.38 X 10*3/uL (4.50-10.00)
[2024-01-28 08:55] LABS: BUN/Creat Ratio 30.83 Ratio (12.00-20.00); Blood Urea Nitrogen 18.5 mg/dL (9.0-27.0); Calcium 8.7 mg/dL (8.7-10.3); Carbon Dioxide 31.9 mmol/L (21.6-31.8); Chloride 100 mmol/L (96-109); Glucose 81 mg/dL (70-110); Potassium 4.2 mmol/L (3.5-5.5); Sodium 140 mmol/L (135-145)
--- NOTE | 2024-01-28 10:40 | P.PN ---
Subjective Progress Note Date: 01/28/24 Principal diagnosis: Spontaneous right-sided pneumothorax, second occurrence, status post placement of thoravent. History of right-sided pneumothorax in April 2022, chronic hypo xemic respiratory failure on home oxygen, COPD, tobacco dependence, hypertension, frequent falls, depression Acute hypoxic respiratory failure secondary to increased right sided pneumothorax with significant subcutaneous emphysema, status post right thoracostomy tube placement by Dr. Rincon, and postoperative day #2 right pigtail catheter placement by interventional radiology. The patient was seen and examined in follow-up today January 28, 2024 at her bedside on the fourth floor medical surgical unit. Currently she is lying in bed, is awake, alert, oriented x 3 and is in no acute apparent distress. The patient is hard of hearing. She denies any complaints of pain or shortness of breath at this time. Oxygen saturations are 96% on 2 L nasal cannula and she is achieving 1000 mL on her incentive spirometry with encouragement. Carvajal catheter remains in place, 500 mL of urine output in the last 8 hours. Right pleural pigtail catheter remains in place connected to bedside Pleur-evac, no air leak is present. 50 mL of thin serosanguineous drainage recorded in the last 24 hours. Chest x-ray results reviewed. The patient underwent a CT scan of the chest yesterday without contrast which showed a right-sided pigtail pleural drainage catheter unchanged in position, marked reduction in the large right pneumothorax, tiny loculated pneumothoraces in the lower anterior thorax and mid upper lateral thorax and moderate right basilar infiltrates and effusions, marked emphysema. Objective - Vital Signs Vital signs: Vital Signs Temp 98.4 F 01/28/24 07:14 Pulse 84 01/28/24 08:33 Resp 20 01/28/24 07:14 BP 162/90 01/28/24 07:14 Pulse Ox 95 01/28/24 07:14 FiO2 44 01/24/24 08:03 Intake & Output 01/27/24 01/28/24 01/28/24 18:59 06:59 18:59 Output Total 400 500 0 Balance -400 -500 0 Weight 44 kg Output: Chest Tube Drainage 50 0 0 Chest Tube Right 0 Pleural Catheter Right 50 0 Mid-Axillary Chest Urine 350 500 Other: Voiding Method Indwelling Catheter Indwelling Catheter Indwelling Catheter - Exam CONSTITUTIONAL: Awake and alert, no pain, no acute distress, cachectic, appears very frail. RESPIRATORY: Lungs sounds diminished bilaterally, right greater than left. Respirations symmetrical, nonlabored. Currently on 2 L nasal cannula with oxygen saturation 96%. Achieving 1000 mL on her incentive spirometry with much encouragement. Strong loose cough. Right pigtail catheter in place to low continuous wall suction -20 cm H2O. No air leak is present. Draining thin serosanguineous drainage with 50 mL output in the last 24 hours. CARDIOVASCULAR: S1, S2 present. Regular rate and rhythm. Palpable peripheral pulses bilaterally. GASTROINTESTINAL: Abdomen soft, nontender, nondistended without masses or organomegaly noted. There is no rebound or guarding present. Active bowel sounds present 4 quadrants. Bowel movement 01/26/24 GENITOURINARY: Carvajal present draining clear yellow urine. 500 mL of urine output in the last 8 hours. INTEGUMENTARY: Skin is warm and dry. No clubbing or cyanosis is present. NEUROLOGIC: Cranial nerves II through XII intact. MUSKULOSKELETAL: Able to move all extremities, generalized weakness. PSYCHIATRIC: Alert and oriented to person, hard of hearing. - Allied health notes Allied health notes reviewed: nursing - Labs CBC & Chem 7: 01/28/24 04:43 01/28/24 04:43 Labs: Abnormal Lab Results - Last 24 Hours (Table) 01/28/24 01/28/24 Range/Units 04:43 04:43 RBC 3.65 L (4.10-5.20) X 10*6/uL Hgb 10.2 L (12.0-15.0) g/dL Hct 33.6 L (37.2-46.3) % MCHC 30.4 L (32.0-37.0) g/dL RDW 16.1 H (11.5-14.5) % Immature Gran # 0.40 H (0.00-0.04) X 10*3/uL Carbon Dioxide 31.9 H (21.6-31.8) mmol/L BUN/Creatinine Ratio 30.83 H (12.00-20.00) Ratio - Imaging and Cardiology Chest x-ray: report reviewed, image reviewed Assessment and Plan Assessment: Spontaneous right-sided pneumothorax, second occurrence, S/P thoravent by the ER physicians Acute hypoxic respiratory failure secondary to increased right PTX with significant subq emphysema, S/P placement of right thoracostomy tube by Dr. Rincon,, status post right pigtail catheter placement by interventional radiology History of right-sided pneumothorax in April 2022 Chronic hypoxemic respiratory failure on home oxygen COPD Tobacco dependence Hypertension Frequent falls Depression Medical debility Plan: Keep right pigtail catheter in place, discontinue from wall suction in place to waterseal. We will repeat the x-ray at 10 AM this morning, if no air leak or pneumothorax seen we will clamp the chest tube and repeat the x-ray tomorrow a.m 01/29/2024. Wean oxygen as tolerated, encourage incentive spirometry 10 times every hour while awake, bronchodilators/steroids per pulmonology. Will monitor daily chest x-rays. Increase activity as tolerated, PT/OT following. Out of bed for all meals. Medical management of other comorbidities per internal medicine, pulmonology. Poor prognosis, consider palliative care. More recommendations to follow based on patient's clinical course. Time with Patient: Greater than 30
--- NOTE | 2024-01-28 11:01 | XR ---
EXAMINATION TYPE: XR chest 1V portable DATE OF EXAM: 01/28/2024 HISTORY: Shortness of breath. COMPARISON: From earlier in the day TECHNIQUE: Single view of the chest is submitted. FINDINGS: Demonstrated are scattered senescent parenchymal change. Right-sided pleural catheter is in place without sizable pneumothorax evident. Skin fold is felt to b e present adjacent to the pigtail component. Persistent patchy infiltrate right lower lobe and small effusion. The heart is stable. Hilar and mediastinal structures are within normal limits. Degenerative changes are seen of the dorsal spine. IMPRESSION: 1. Right-sided pleural catheter is in place without sizable pneumothorax evident. Skin fold is felt to be present adjacent to the pigtail component. Persistent patchy infiltrate right lower lobe and sm all effusion.
--- NOTE | 2024-01-28 13:33 | P.PN ---
Subjective Progress Note Date: 01/28/24 Progress note dated January 19, 2024. 74-year-old female who was initially seen in consultation on January 16. She had a follow-up with no yesterday. Yesterday, because of a recurrent and more significant right-sided pneumothorax, a chest tube was placed. A 28 Welsh chest tube was placed on the right side without difficulty. Currently, she is on Airvo, at 40 L/min with an FiO2 55%. She is getting saline at 75 cc an hour. The chest tube was noted to be in proper position on chest x-ray. There is no leak noted. The chest tube remains on suction. Cardiothoracic surgery is following the patient also. Current laboratory includes a white count 6.7, hemoglobin 11.1, hematocrit 35.7, and a normal platelet count. Sodium 140, potassium 4.5, chlorides 107, CO2 29, BUN 44, creatinine 0.69. Glucose is 123. Calcium 8.7. Urine is showing gram-negative bacilli. It has yet to be identified. The patient continues on Rocephin. Other important medications include Symbicort, and DuoNeb, as well as prednisone 40 mg. Progress note dated January 20, 2024. 74-year-old female seen initially in consultation on January 16. The patient was seen yesterday in the intensive care unit, and then again today in the intensive care unit. She is in room 254. She is doing much better today. She is down to 2 L of oxygen. She is getting saline at 75 cc an hour. Her urine shows gram- negative organisms, and she is currently on Rocephin. She is clinically feeling better. Her chest x-ray is stable. There is no air leak from the right side. Current labs include a white count 9.4, hemoglobin 9.9, hematocrit 32, and platelet count of 280,000. Sodium 141, potassium 3.7, chlorides 110, CO2 30, BUN 29, and creatinine 0.71. Procalcitonin level was 0.13. Urine was positive for Escherichia coli. It is an ESBL E. coli, and she will need to be switched to ertapenem. Chest x-ray stable. The patient is seen today January 21, 2024 in follow-up on the regular medical floor. She is currently sitting up in bed. Awake and alert in no acute distress. She is requiring 5 L/min per nasal cannula to maintain O2 saturations in the 90s. No IV fluids. Chest x-ray no sizable pneumothorax. Right-sided chest tube remains in place. Currently off suction and placed to waterseal. Basilar infiltrates persist right greater than left. Urine culture was positive for E. coli. White count 10.2. Hemoglobin 10.5. Platelets 289. Sodium 139. Potassium 3.5. Bicarb 28. BUN 15. Creatinine 0.5. Glucose 103. He is continued on DuoNeb ventilations, Symbicort. Antibiotics in the form of ertapenem. Heparin for DVT prophylaxis. The patient is seen today January 22, 2024 in follow-up on the regular medical floor. She is resting comfortably in bed. Awake and alert in no acute distress. She is maintaining O2 saturations in the 90s on 4 L/min per nasal cannula. Normal saline at KVO. Her chest tube was clamped this morning. Chest x-ray reveals right-sided chest tube in unchanged position. Sizable pneumot horax not evident. Patchy basilar infiltrates persist. Stable chest. Improving subcutaneous emphysema. Urine culture was positive for ESBL E. coli. WBC 7.9. Hemoglobin 11.5. Platelets 338. Sodium 134. Potassium 3.7. Bicarb 31. BUN 16. Creatinine 0.61. Glucose 109. She remains on DuoNeb inhalations, Symbicort. Antibiotics in the form of ertapenem. The patient is seen today January 23, 2024 in follow-up on the regular medical floor. She is sitting up in bed. Awake and alert in no acute distress. She is maintaining good O2 saturations in the 90s on 4 L/min per nasal cannula. Her chest tube was removed yesterday. Today's chest x-ray reveals a small 20 to 25% right apical pneumothorax. She denies any worsening shortness of breath, cough or congestion. She is working with the incentive spirometer. She is continued on DuoNeb inhalations, Symbicort. Urine culture positive for ESBL E. coli. Remains on antibiotics in the form of ertapenem. Heparin for DVT prophylaxis. No new labs today. The patient is seen today January 24, 2024 in follow-up on the regular medical floor. She is currently resting in bed. Awake and alert in no acute distress. She is requiring 7 L high flow nasal cannula to maintain O2 saturations in the 90s. She has normal staying at KVO. She denies any worsening shortness of breath, cough or congestion. Unfortunately her chest x-ray shows slight progression of the right-sided pneumothorax estimated at 25% and increased laterally. Persistent right upper lobe infiltrate. Improving subcutaneous air. The plan now is for a pigtail catheter insertion per interventional radiology. Urine culture was positive for ESBL E. coli. She remains on ertapenem. Continued on DuoNeb inhalations, Symbicort. Heparin for DVT prophylaxis. The patient is seen today January 25, 2024 in follow-up on the regular medical floor. She is currently resting comfortably in bed. Awake and alert in no acute distress. Maintaining O2 saturations in the 90s on 4 L/min per nasal cannula. She did have a pigtail catheter placed yesterday. This is to Pleur- evac. There is a positive leak. Chest x-ray continues to show a pneumothorax on the right. She remains on DuoNeb ventilations, Symbicort. Heparin for DVT prophylaxis. Remains on Invanz. Urine culture was positive for E. coli, ESBL. No new labs today. The patient is seen today January 26, 2024 in follow-up on the regular medical floor. He is sitting up in bed. Awake and alert in no acute distress. Having some chest wall discomfort from the pigtail catheter insertion site. She is maintaining O2 saturations in the upper 90s on 3-1/2 L/min per nasal cannula. Pigtail catheter does remain in place to Pleur-evac. Still with a small leak. She needs increased encouragement regarding the use of the incentive spirometer. She remains on DuoNeb inhalations, Symbicort. Heparin for DVT prophylaxis. Continued on ertapenem for ESBL E. coli urinary tract infection. Chest x-ray showing a tiny right lung base hydropneumothorax, stable. There is continued reduction in the loculated pneumothorax compared to previous. No new labs today. The patient is seen today January 27, 2024 in follow-up on the regular medical floor. She is awake and alert in no acute distress. She is maintaining O2 saturations in the 90s on 1 L/min per nasal cannula. Right-sided pigtail catheter remains in place to Pleur-evac and wall suction. Continues with a positive leak. Minimal pneumothorax on chest x-ray. Less subcutaneous emphysema. She remains on bronchodilators. Heparin for DVT prophylaxis. To biotics in the form of ertapenem for her ESBL E. coli urinary tract infection. The patient is seen today January 28, 2024 in follow-up on the regular medical floor. She is sitting up in bed. Awake and alert in no acute distress. Right- sided pigtail catheter remains in place. No airleak noted presently. Chest x- ray continues to show no sizable pneumothorax. Patchy persistent infiltrate of the right lower lobe and small effusion. Urine culture positive for ESBL E. coli. 8.3. Hemoglobin 10.2. Platelets 306. Sodium 140. Potassium 4.2. Bicarb 32. BUN 19. Creatinine 0.6. Glucose 81. She remains on ertapenem. Continued on DuoNeb inhalations, Symbicort. Heparin for DVT prophylaxis. Objective - Vital Signs Vital signs: Vital Signs Temp 98.4 F 01/28/24 07:14 Pulse 76 01/28/24 11:54 Resp 20 01/28/24 07:14 BP 162/90 01/28/24 07:14 Pulse Ox 95 01/28/24 07:14 FiO2 44 01/24/24 08:03 Intake & Output 01/27/24 01/28/24 01/28/24 18:59 06:59 18:59 Output Total 400 500 0 Balance -400 -500 0 Weight 44 kg Output: Chest Tube Drainage 50 0 0 Chest Tube Right 0 Pleural Catheter Right 50 0 Mid-Axillary Chest Urine 350 500 Other: Voiding Method Indwelling Catheter Indwelling Catheter Indwelling Catheter - Exam GENERAL EXAM: Alert, frail, cachectic 74-year-old female, on 2 L nasal cannula, in no acute distress. HEAD: Normocephalic. EYES: Normal reaction of pupils, equal size. NOSE: Clear with pink turbinates. THROAT: No erythema or exudates. NECK: No masses, no JVD. CHEST: No chest wall deformity. LUNGS: Equal air entry with basilar crackles right greater than left. Right- sided pigtail catheter in place to Pleur-evac. No leak. CVS: S1 and S2 normal with no audible murmur, regular rhythm. ABDOMEN: No hepatosplenomegaly, normal bowel sounds, no guarding or rigidity. SPINE: No scoliosis or deformity SKIN: No rashes. There was some subcutaneous emphysema CENTRAL NERVOUS SYSTEM: No focal deficits, tone is normal in all 4 extremities. EXTREMITIES: There is no peripheral edema. No clubbing, no cyanosis. Peripheral pulses are intact. - Labs CBC & Chem 7: 01/28/24 04:43 01/28/24 04:43 Labs: Abnormal Lab Results - Last 24 Hours (Table) 01/28/24 01/28/24 Range/Units 04:43 04:43 RBC 3.65 L (4.10-5.20) X 10*6/uL Hgb 10.2 L (12.0-15.0) g/dL Hct 33.6 L (37.2-46.3) % MCHC 30.4 L (32.0-37.0) g/dL RDW 16.1 H (11.5-14.5) % Immature Gran # 0.40 H (0.00-0.04) X 10*3/uL Carbon Dioxide 31.9 H (21.6-31.8) mmol/L BUN/Creatinine Ratio 30.83 H (12.00-20.00) Ratio Assessment and Plan Assessment: Acute right-sided pneumothorax, initially treated with a Thora vent device, and then a 28 Welsh chest tube, placed on waterseal 01/21/2024. Removed 01/22/2024. Increasing pneumothorax on 01/24/2024 and now with a pigtail catheter placed. Positive leak. Follow-up chest x-ray today January 28, 2024 reveals no sizable pneumothorax Acute hypoxemic respiratory failure secondary to COPD and right pneumothorax ESBL E. coli urinary tract infection. Currently on ertapenem Mental status changes, improved History of traumatic right-sided pneumothorax 2021 History of severe emphysema Ongoing tobacco use with nicotine addiction History of falls History of medication noncompliance Hypertension Poor overall functional performance based on the above-mentioned multiple comorbidities Anorexia/cachexia syndrome Plan: The patient was seen and evaluated Chest x-rays, labs and medications reviewed No sizable right-sided pneumothorax Pigtail catheter remains in place, no leak Encourage increased use of the incentive spirometer Overall prognosis is quite guarded We will continue to follow I have personally seen and examined the patient, performed the documentation and the assessment and plan as written. Number of minutes spent on the visit: 10.
[2024-01-28] MEDS: HYDROcodone/APAP 5-325MG 1 EACH TAB PO PRN (14:29)
--- NOTE | 2024-01-28 22:44 | PN ---
PROGRESS NOTE DATE OF SERVICE: 01/28/2024 SUBJECTIVE: This is a 74-year-old woman, who was admitted with COPD and recurrent pneumothorax, is being closely monitored at this time. The patient had a chest CT yesterday, which showed some reduction in the pneumothorax. Today's chest x-ray also confirmed improvement. OBJECTIVE: VITAL SIGNS: Pulse is 82, blood pressure 140/69, respirations 20. CHEST: Bilateral scattered rhonchi and crackles. ABDOMEN: Soft. NERVOUS SYSTEM: Nonfocal. LABORATORY DATA: Hemoglobin 10.2. ASSESSMENT: 1. Chronic obstructive pulmonary disease acute exacerbation with recurrent right pneumothorax, on chest tube drainage. 2. Bullous emphysema. 3. Malnutrition. 4. Multiple complex medical issues. RECOMMENDATIONS AND DISCUSSION: Recommended to continue current management and continue symptomatic treatment. Otherwise, repeat labs. Continue the bronchodilators, rest of the medications. Closely follow with Cardiothoracic Surgery. Further recommendations to follow. MMODL / IJN: [id number] /
--- NOTE | 2024-01-29 07:43 | XR ---
EXAMINATION TYPE: XR chest 1V portable DATE OF EXAM: 01/29/2024 HISTORY: Shortness of breath. COMPARISON: 01/28/2024 TECHNIQUE: Single view of the chest is submitted. FINDINGS: Demonstrated are scattered senescent parenchymal change. Basilar infiltrates persist. Right sided pleural catheter is unchanged in position. No evidence for s izable pneumothorax. The heart is stable. Hilar and mediastinal structures are within normal limits. Degenerative changes are seen of the dorsal spine. IMPRESSION: 1. Basilar infiltrates persist. Right sided pleural catheter is unchanged in position. No evidence f or sizable pneumothorax.
[2024-01-29 08:40] LABS: Basophils # (A) 0.08 X 10*3/uL (0.00-0.10); Eosinophils # (A) 0.19 X 10*3/uL (0.04-0.35); Eosinophils % (A) 2.4 %; HCT 32.4 % (37.2-46.3); Lymphocytes # (A) 1.91 X 10*3/uL (0.90-5.00); Lymphocytes % (A) 24.3 %; MCH 28.6 pg (27.0-32.0); MCHC 30.9 g/dL (32.0-37.0); MCV 92.6 FL (80.0-97.0); Mean Platelet Volume 9.7 FL (9.5-12.2); Monocytes # (A) 0.49 X 10*3/uL (0.20-1.00); Monocytes % (A) 6.2 %; NRBC Per 100 WBC 0 X 10*3/uL (0.00-0.01); Neutrophils # (A) 4.87 X 10*3/uL (1.80-7.70); Neutrophils % (A) 61.9 %; Platelet Count 307 X 10*3/uL (140-440); RDW 16.3 % (11.5-14.5); WBC 7.87 X 10*3/uL (4.50-10.00)
[2024-01-29 09:13] LABS: Blood Urea Nitrogen 18.1 mg/dL (9.0-27.0); Calcium 8.6 mg/dL (8.7-10.3); Carbon Dioxide 29.7 mmol/L (21.6-31.8); Chloride 102 mmol/L (96-109); Glucose 76 mg/dL (70-110); Potassium 4.1 mmol/L (3.5-5.5); Sodium 140 mmol/L (135-145)
--- NOTE | 2024-01-29 09:49 | P.PN ---
Subjective Progress Note Date: 01/29/24 Principal diagnosis: Spontaneous right-sided pneumothorax, second occurrence, status post placement of thoravent. History of right-sided pneumothorax in April 2022, chronic hypo xemic respiratory failure on home oxygen, COPD, tobacco dependence, hypertension, frequent falls, depression Acute hypoxic respiratory failure secondary to increased right sided pneumothorax with significant subcutaneous emphysema, status post right thoracostomy tube placement by Dr. Rincon, and postoperative day #2 right pigtail catheter placement by interventional radiology. The patient was seen and examined in follow-up today January 29, 2024 at her bedside on the fourth floor medical surgical unit. She is currently laying in bed, is awake, alert, oriented x 3 and is in no acute apparent distress. Denies any complaints of pain or shortness of breath at this time. Oxygen saturations are 95% on 3 L nasal cannula and she is achieving 750 mL on her incentive spirometry with encouragement. The patient's right pleural pigtail catheter has been clamped for approximately 24 hours. No sizable pneumothorax appreciated on chest x-ray. The patient is tolerating her breakfast. She remains h emodynamically stable and is currently on no inotropic or pressor support. Objective - Vital Signs Vital signs: Vital Signs Temp 98.6 F 01/29/24 07:02 Pulse 76 01/29/24 08:02 Resp 20 01/29/24 07:02 BP 152/82 01/29/24 07:02 Pulse Ox 96 01/29/24 07:02 FiO2 44 01/24/24 08:03 Intake & Output 01/28/24 01/29/24 01/29/24 18:59 06:59 18:59 Intake Total 0 Output Total 400 150 0 Balance -400 -150 0 Weight 44 kg 47.5 kg Intake: Oral 0 Output: Chest Tube Drainage 0 0 0 Chest Tube Right 0 0 0 Urine 400 150 Other: Voiding Method Indwelling Catheter Indwelling Catheter # Bowel Movements 2 - Exam CONSTITUTIONAL: Awake and alert, no pain, no acute distress, cachectic, appears very frail. RESPIRATORY: Lungs sounds diminished bilaterally, right greater than left. Respirations symmetrical, nonlabored. Currently on 2 L nasal cannula with oxygen saturation 95%. Achieving 750 mL on her incentive spirometry with much encouragement. Strong loose cough. Right pigtail catheter in place and is currently clamped. CARDIOVASCULAR: S1, S2 present. Regular rate and rhythm. Palpable peripheral pulses bilaterally. GASTROINTESTINAL: Abdomen soft, nontender, nondistended without masses or organomegaly noted. There is no rebound or guarding present. Active bowel sounds present 4 quadrants. Bowel movement 01/28/24 GENITOURINARY: Carvajal present draining clear yellow urine. INTEGUMENTARY: Skin is warm and dry. No clubbing or cyanosis is present. NEUROLOGIC: Cranial nerves II through XII intact. MUSKULOSKELETAL: Able to move all extremities, generalized weakness. PSYCHIATRIC: Alert and oriented to person, hard of hearing. - Allied health notes Allied health notes reviewed: nursing - Labs CBC & Chem 7: 01/29/24 05:01 01/29/24 05:01 Labs: Abnormal Lab Results - Last 24 Hours (Table) 01/29/24 01/29/24 Range/Units 05:01 05:01 RBC 3.50 L (4.10-5.20) X 10*6/uL Hgb 10.0 L (12.0-15.0) g/dL Hct 32.4 L (37.2-46.3) % MCHC 30.9 L (32.0-37.0) g/dL RDW 16.3 H (11.5-14.5) % Immature Gran # 0.33 H (0.00-0.04) X 10*3/uL Creatinine 0.5 L (0.6-1.5) mg/dL BUN/Creatinine Ratio 36.20 H (12.00-20.00) Ratio Calcium 8.6 L (8.7-10.3) mg/dL - Imaging and Cardiology Chest x-ray: report reviewed, image reviewed Assessment and Plan Assessment: Spontaneous right-sided pneumothorax, second occurrence, S/P thoravent by the ER physicians Acute hypoxic respiratory failure secondary to increased right PTX with significant subq emphysema, S/P placement of right thoracostomy tube by Dr. Rincon,, status post right pigtail catheter placement by interventional radiology History of right-sided pneumothorax in April 2022 Chronic hypoxemic respiratory failure on home oxygen COPD Tobacco dependence Hypertension Frequent falls Depression Medical debility Plan: We will likely remove her right pleural pigtail catheter today, and repeat chest x-ray after pigtail catheter has been removed. Wean oxygen as tolerated, encourage incentive spirometry 10 times every hour while awake, bronchodilators/steroids per pulmonology. Will monitor daily chest x-rays. Increase activity as tolerated, PT/OT following. Out of bed for all meals. Medical management of other comorbidities per internal medicine, pulmonology. More recommendations to follow based on patient's clinical course. Time with Patient: Less than 30
--- NOTE | 2024-01-29 13:28 | P.PN ---
Subjective Progress Note Date: 01/29/24 Progress note dated January 19, 2024. 74-year-old female who was initially seen in consultation on January 16. She had a follow-up with no yesterday. Yesterday, because of a recurrent and more significant right-sided pneumothorax, a chest tube was placed. A 28 Telugu chest tube was placed on the right side without difficulty. Currently, she is on Airvo, at 40 L/min with an FiO2 55%. She is getting saline at 75 cc an hour. The chest tube was noted to be in proper position on chest x-ray. There is no leak noted. The chest tube remains on suction. Cardiothoracic surgery is following the patient also. Current laboratory includes a white count 6.7, hemoglobin 11.1, hematocrit 35.7, and a normal platelet count. Sodium 140, potassium 4.5, chlorides 107, CO2 29, BUN 44, creatinine 0.69. Glucose is 123. Calcium 8.7. Urine is showing gram-negative bacilli. It has yet to be identified. The patient continues on Rocephin. Other important medications include Symbicort, and DuoNeb, as well as prednisone 40 mg. Progress note dated January 20, 2024. 74-year-old female seen initially in consultation on January 16. The patient was seen yesterday in the intensive care unit, and then again today in the intensive care unit. She is in room 254. She is doing much better today. She is down to 2 L of oxygen. She is getting saline at 75 cc an hour. Her urine shows gram- negative organisms, and she is currently on Rocephin. She is clinically feeling better. Her chest x-ray is stable. There is no air leak from the right side. Current labs include a white count 9.4, hemoglobin 9.9, hematocrit 32, and platelet count of 280,000. Sodium 141, potassium 3.7, chlorides 110, CO2 30, BUN 29, and creatinine 0.71. Procalcitonin level was 0.13. Urine was positive for Escherichia coli. It is an ESBL E. coli, and she will need to be switched to ertapenem. Chest x-ray stable. The patient is seen today January 21, 2024 in follow-up on the regular medical floor. She is currently sitting up in bed. Awake and alert in no acute distress. She is requiring 5 L/min per nasal cannula to maintain O2 saturations in the 90s. No IV fluids. Chest x-ray no sizable pneumothorax. Right-sided chest tube remains in place. Currently off suction and placed to waterseal. Basilar infiltrates persist right greater than left. Urine culture was positive for E. coli. White count 10.2. Hemoglobin 10.5. Platelets 289. Sodium 139. Potassium 3.5. Bicarb 28. BUN 15. Creatinine 0.5. Glucose 103. He is continued on DuoNeb ventilations, Symbicort. Antibiotics in the form of ertapenem. Heparin for DVT prophylaxis. The patient is seen today January 22, 2024 in follow-up on the regular medical floor. She is resting comfortably in bed. Awake and alert in no acute distress. She is maintaining O2 saturations in the 90s on 4 L/min per nasal cannula. Normal saline at KVO. Her chest tube was clamped this morning. Chest x-ray reveals right-sided chest tube in unchanged position. Sizable pneumot horax not evident. Patchy basilar infiltrates persist. Stable chest. Improving subcutaneous emphysema. Urine culture was positive for ESBL E. coli. WBC 7.9. Hemoglobin 11.5. Platelets 338. Sodium 134. Potassium 3.7. Bicarb 31. BUN 16. Creatinine 0.61. Glucose 109. She remains on DuoNeb inhalations, Symbicort. Antibiotics in the form of ertapenem. The patient is seen today January 23, 2024 in follow-up on the regular medical floor. She is sitting up in bed. Awake and alert in no acute distress. She is maintaining good O2 saturations in the 90s on 4 L/min per nasal cannula. Her chest tube was removed yesterday. Today's chest x-ray reveals a small 20 to 25% right apical pneumothorax. She denies any worsening shortness of breath, cough or congestion. She is working with the incentive spirometer. She is continued on DuoNeb inhalations, Symbicort. Urine culture positive for ESBL E. coli. Remains on antibiotics in the form of ertapenem. Heparin for DVT prophylaxis. No new labs today. The patient is seen today January 24, 2024 in follow-up on the regular medical floor. She is currently resting in bed. Awake and alert in no acute distress. She is requiring 7 L high flow nasal cannula to maintain O2 saturations in the 90s. She has normal staying at KVO. She denies any worsening shortness of breath, cough or congestion. Unfortunately her chest x-ray shows slight progression of the right-sided pneumothorax estimated at 25% and increased laterally. Persistent right upper lobe infiltrate. Improving subcutaneous air. The plan now is for a pigtail catheter insertion per interventional radiology. Urine culture was positive for ESBL E. coli. She remains on ertapenem. Continued on DuoNeb inhalations, Symbicort. Heparin for DVT prophylaxis. The patient is seen today January 25, 2024 in follow-up on the regular medical floor. She is currently resting comfortably in bed. Awake and alert in no acute distress. Maintaining O2 saturations in the 90s on 4 L/min per nasal cannula. She did have a pigtail catheter placed yesterday. This is to Pleur- evac. There is a positive leak. Chest x-ray continues to show a pneumothorax on the right. She remains on DuoNeb ventilations, Symbicort. Heparin for DVT prophylaxis. Remains on Invanz. Urine culture was positive for E. coli, ESBL. No new labs today. The patient is seen today January 26, 2024 in follow-up on the regular medical floor. He is sitting up in bed. Awake and alert in no acute distress. Having some chest wall discomfort from the pigtail catheter insertion site. She is maintaining O2 saturations in the upper 90s on 3-1/2 L/min per nasal cannula. Pigtail catheter does remain in place to Pleur-evac. Still with a small leak. She needs increased encouragement regarding the use of the incentive spirometer. She remains on DuoNeb inhalations, Symbicort. Heparin for DVT prophylaxis. Continued on ertapenem for ESBL E. coli urinary tract infection. Chest x-ray showing a tiny right lung base hydropneumothorax, stable. There is continued reduction in the loculated pneumothorax compared to previous. No new labs today. The patient is seen today January 27, 2024 in follow-up on the regular medical floor. She is awake and alert in no acute distress. She is maintaining O2 saturations in the 90s on 1 L/min per nasal cannula. Right-sided pigtail catheter remains in place to Pleur-evac and wall suction. Continues with a positive leak. Minimal pneumothorax on chest x-ray. Less subcutaneous emphysema. She remains on bronchodilators. Heparin for DVT prophylaxis. To biotics in the form of ertapenem for her ESBL E. coli urinary tract infection. The patient is seen today January 28, 2024 in follow-up on the regular medical floor. She is sitting up in bed. Awake and alert in no acute distress. Right- sided pigtail catheter remains in place. No airleak noted presently. Chest x- ray continues to show no sizable pneumothorax. Patchy persistent infiltrate of the right lower lobe and small effusion. Urine culture positive for ESBL E. coli. 8.3. Hemoglobin 10.2. Platelets 306. Sodium 140. Potassium 4.2. Bicarb 32. BUN 19. Creatinine 0.6. Glucose 81. She remains on ertapenem. Continued on DuoNeb inhalations, Symbicort. Heparin for DVT prophylaxis. The patient is seen today January 29, 2024 in follow-up on the regular medical floor. She is currently up in a chair, awake and alert in no acute distress. She is maintaining O2 saturations in the 90s on 2 L/min per nasal cannula. Pigtail catheter remains in place. No leak demonstrated today. No basilar infiltrates. No evidence of sizable pneumothorax. She remains on ertapenem. Continued on DuoNeb inhalations, Symbicort. Heparin for DVT prophylaxis. White count 7.8. Hemoglobin 10.0. Platelets 307. Sodium 140. Potassium 4.1. Bicarb 30. BUN 18. Creatinine 0.5. Glucose 76. Objective - Vital Signs Vital signs: Vital Signs Temp 98.6 F 01/29/24 07:02 Pulse 72 01/29/24 11:59 Resp 20 01/29/24 07:02 BP 152/82 01/29/24 07:02 Pulse Ox 96 01/29/24 07:02 FiO2 44 01/24/24 08:03 Intake & Output 01/28/24 01/29/24 01/29/24 18:59 06:59 18:59 Intake Total 0 Output Total 400 150 0 Balance -400 -150 0 Weight 44 kg 47.5 kg Intake: Oral 0 Output: Chest Tube Drainage 0 0 0 Chest Tube Right 0 0 0 Urine 400 150 Other: Voiding Method Indwelling Catheter Indwelling Catheter # Bowel Movements 2 - Exam GENERAL EXAM: Alert, frail, cachectic 74-year-old female, up in a chair, on 2 L nasal cannula, in no acute distress. HEAD: Normocephalic. EYES: Normal reaction of pupils, equal size. NOSE: Clear with pink turbinates. THROAT: No erythema or exudates. NECK: No masses, no JVD. CHEST: No chest wall deformity. LUNGS: Equal air entry with basilar crackles right greater than left. Right- sided pigtail catheter in place to Pleur-evac. No leak. CVS: S1 and S2 normal with no audible murmur, regular rhythm. ABDOMEN: No hepatosplenomegaly, normal bowel sounds, no guarding or rigidity. SPINE: No scoliosis or deformity SKIN: No rashes. There was some subcutaneous emphysema CENTRAL NERVOUS SYSTEM: No focal deficits, tone is normal in all 4 extremities. EXTREMITIES: There is no peripheral edema. No clubbing, no cyanosis. Peripheral pulses are intact. - Labs CBC & Chem 7: 01/29/24 05:01 01/29/24 05:01 Labs: Abnormal Lab Results - Last 24 Hours (Table) 01/29/24 01/29/24 Range/Units 05:01 05:01 RBC 3.50 L (4.10-5.20) X 10*6/uL Hgb 10.0 L (12.0-15.0) g/dL Hct 32.4 L (37.2-46.3) % MCHC 30.9 L (32.0-37.0) g/dL RDW 16.3 H (11.5-14.5) % Immature Gran # 0.33 H (0.00-0.04) X 10*3/uL Creatinine 0.5 L (0.6-1.5) mg/dL BUN/Creatinine Ratio 36.20 H (12.00-20.00) Ratio Calcium 8.6 L (8.7-10.3) mg/dL Assessment and Plan Assessment: Acute right-sided pneumothorax, initially treated with a Thora vent device, and then a 28 Telugu chest tube, placed on waterseal 01/21/2024. Removed 01/22/2024. Increasing pneumothorax on 01/24/2024 and now with a pigtail catheter placed. Follow-up chest x-ray today January 19, 2024 reveals no sizable pneumothorax Acute hypoxemic respiratory failure secondary to COPD and right pneumothorax ESBL E. coli urinary tract infection. Currently on ertapenem Mental status changes, improved History of traumatic right-sided pneumothorax 2021 History of severe emphysema Ongoing tobacco use with nicotine addiction History of falls History of medication noncompliance Hypertension Poor overall functional performance based on the above-mentioned multiple comorbidities Anorexia/cachexia syndrome Plan: The patient was seen and evaluated Chest x-rays, labs and medications reviewed No sizable right-sided pneumothorax Pigtail catheter remains in place, no leak The plan is to remove the catheter today Encourage increased use of the incentive spirometer We will continue to follow I have personally seen and examined the patient, performed the documentation and the assessment and plan as written. Number of minutes spent on the visit: 10.
--- NOTE | 2024-01-29 14:40 | P.PN ---
Subjective Progress Note Date: 01/28/24 Principal diagnosis: Reason for follow-up is ESBL E. coli urinary tract infection Patient is a 74-year-old female with a past medical history significant for COPD hypertension anxiety depression current everyday smoker, patient presenting to the hospital with increasing shortness of breath has been diagnosed with a pneumothorax status post right-sided chest tube also have a positive UA with urine culture positive for ESBL prompted this consultation. On today's evaluation that is 01/28/2024, the patient continues to be afebrile, the patient is on 2 L nasal cannula and breathing comfortably, the Pt denies having any chest pain or worsening cough, the patient denies having any abdominal pain no vomiting or any diarrhea has been reported by the nursing staff Patient white count is 8.38 and the creatinine 0.6 Objective - Vital Signs Vital signs: Vital Signs Temp 98.4 F 01/28/24 07:14 Pulse 76 01/28/24 11:54 Resp 20 01/28/24 07:14 BP 162/90 01/28/24 07:14 Pulse Ox 95 01/28/24 07:14 FiO2 44 01/24/24 08:03 Intake & Output 01/27/24 01/28/24 01/28/24 18:59 06:59 18:59 Output Total 400 500 0 Balance -400 -500 0 Weight 44 kg Output: Chest Tube Drainage 50 0 0 Chest Tube Right 0 Pleural Catheter Right 50 0 Mid-Axillary Chest Urine 350 500 Other: Voiding Method Indwelling Catheter Indwelling Catheter Indwelling Catheter - Exam GENERAL DESCRIPTION: An elderly female lying in bed in no distress RESPIRATORY SYSTEM: Unlabored breathing , decreased breath sounds at bases HEART: S1 S2 regular rate and rhythm , ABDOMEN: Soft , no tenderness EXTREMITIES: No edema feet - Labs CBC & Chem 7: 01/29/24 05:01 01/29/24 05:01 Labs: Abnormal Lab Results - Last 24 Hours (Table) 01/28/24 01/28/24 Range/Units 04:43 04:43 RBC 3.65 L (4.10-5.20) X 10*6/uL Hgb 10.2 L (12.0-15.0) g/dL Hct 33.6 L (37.2-46.3) % MCHC 30.4 L (32.0-37.0) g/dL RDW 16.1 H (11.5-14.5) % Immature Gran # 0.40 H (0.00-0.04) X 10*3/uL Carbon Dioxide 31.9 H (21.6-31.8) mmol/L BUN/Creatinine Ratio 30.83 H (12.00-20.00) Ratio Assessment and Plan (1) Infection due to ESBL-producing Escherichia coli Current Visit: Yes Status: Acute Code(s): A49.8 - OTHER BACTERIAL INFECTIONS OF UNSPECIFIED SITE; Z16.12 - EXTENDED SPECTRUM BETA LACTAMASE (ESBL) RESISTANCE SNOMED Code(s): 900765202 (2) UTI (urinary tract infection) Current Visit: No Status: Acute Code(s): N39.0 - URINARY TRACT INFECTION, SITE NOT SPECIFIED SNOMED Code(s): 82762574 Plan: 1patient with initial presentation to the hospital for increasing shortness of breath patient did have a significantly positive UA from urinary symptoms concerning for symptomatic urinary tract infection 2-patient has been afebrile and white count has been normal, currently covered with Invanz and monitor clinical course closely Dictation was produced using [employer] dictation software. please excuse any grammatical, word or spelling errors. Time with Patient: Less than 30
--- NOTE | 2024-01-29 14:41 | P.PN ---
Subjective Progress Note Date: 01/29/24 Principal diagnosis: Reason for follow-up is ESBL E. coli urinary tract infection Patient is a 74-year-old female with a past medical history significant for COPD hypertension anxiety depression current everyday smoker, patient presenting to the hospital with increasing shortness of breath has been diagnosed with a pneumothorax status post right-sided chest tube also have a positive UA with urine culture positive for ESBL prompted this consultation. On today's evaluation that is 01/29/2024, Patient is afebrile patient is currently on 2 L current oxygen and denies having any shortness of breath, the patient denies any chest pain did have mild dry cough, the patient denies any nausea vomiting did not have any abdominal pain and no diarrhea. Patient white count is 7.87, creatinine 0.5 Objective - Vital Signs Vital signs: Vital Signs Temp 97.8 F 01/29/24 13:15 Pulse 86 01/29/24 13:15 Resp 20 01/29/24 13:15 BP 128/73 01/29/24 13:15 Pulse Ox 90 L 01/29/24 13:15 FiO2 44 01/24/24 08:03 Intake & Output 01/28/24 01/29/24 01/29/24 18:59 06:59 18:59 Intake Total 0 Output Total 400 150 0 Balance -400 -150 0 Weight 44 kg 47.5 kg Intake: Oral 0 Output: Chest Tube Drainage 0 0 0 Chest Tube Right 0 0 0 Urine 400 150 Other: Voiding Method Indwelling Catheter Indwelling Catheter # Bowel Movements 2 - Exam GENERAL DESCRIPTION: An elderly female lying in bed in no distress RESPIRATORY SYSTEM: Unlabored breathing , decreased breath sounds at bases HEART: S1 S2 regular rate and rhythm , ABDOMEN: Soft , no tenderness EXTREMITIES: No edema feet - Labs CBC & Chem 7: 01/29/24 05:01 01/29/24 05:01 Labs: Abnormal Lab Results - Last 24 Hours (Table) 01/29/24 01/29/24 Range/Units 05:01 05:01 RBC 3.50 L (4.10-5.20) X 10*6/uL Hgb 10.0 L (12.0-15.0) g/dL Hct 32.4 L (37.2-46.3) % MCHC 30.9 L (32.0-37.0) g/dL RDW 16.3 H (11.5-14.5) % Immature Gran # 0.33 H (0.00-0.04) X 10*3/uL Creatinine 0.5 L (0.6-1.5) mg/dL BUN/Creatinine Ratio 36.20 H (12.00-20.00) Ratio Calcium 8.6 L (8.7-10.3) mg/dL Assessment and Plan (1) Infection due to ESBL-producing Escherichia coli Current Visit: Yes Status: Acute Code(s): A49.8 - OTHER BACTERIAL INFECTIONS OF UNSPECIFIED SITE; Z16.12 - EXTENDED SPECTRUM BETA LACTAMASE (ESBL) RESISTANCE SNOMED Code(s): 853605151 (2) UTI (urinary tract infection) Current Visit: No Status: Acute Code(s): N39.0 - URINARY TRACT INFECTION, SITE NOT SPECIFIED SNOMED Code(s): 38273153 Plan: 1patient with initial presentation to the hospital for increasing shortness of breath patient did have a significantly positive UA from urinary symptoms concerning for symptomatic urinary tract infection 2-patient has been afebrile and white count has been normal, currently covered with Invanz which can be discontinued for 10-day course and continue supportive care Dictation was produced using [employer] dictation software. please excuse any grammatical, word or spelling errors. Time with Patient: Less than 30
[2024-01-29] MEDS: HYDROmorphone 0.5 MG/0.5 ML SYRINGE IVP STA (16:10)
--- NOTE | 2024-01-29 20:39 | PN ---
PROGRESS NOTE DATE OF SERVICE: 01/29/2024 SUBJECTIVE: This is a 74-year-old woman, who was admitted with COPD acute exacerbation, also had recurrent pneumothorax. No chest pain. No palpitation. The most recent chest x-ray shows some improvement. OBJECTIVE: VITAL SIGNS: Pulse is 72, blood pressure is 128/76, respirations 20. CHEST: Bilateral scattered rhonchi and crackles. ABDOMEN: Soft. NERVOUS SYSTEM: Nonfocal. LABORATORY DATA: Hemoglobin is 10. ASSESSMENT: 1. Chronic obstructive pulmonary disease acute exacerbation with a recurrent right pneumothorax and chest tube drainage. 2. Bullous emphysema. 3. Malnutrition. 4. Multiple complex medical issues. RECOMMENDATIONS AND DISCUSSION: Recommended to continue current management and continue symptomatic treatment. Otherwise, PT, OT evaluation, possible ECF rehab. Closely follow with multiple consultants. Further recommendations to follow. MMTATUML / IJN: [id number] /
--- NOTE | 2024-01-30 07:41 | XR ---
EXAMINATION TYPE: XR chest 1V portable DATE OF EXAM: 01/30/2024 COMPARISON: 01/29/2024 HISTORY: Pneumothorax follow-up. TECHNIQUE: Single view of the chest is submitted. FINDINGS: Scattered senescent parenchymal changes noted. Hyperinflation compatible with COPD. Right basilar pleural catheter is redemonstrated. No evidence for sizable pneumothorax at this time. Patchy basilar infiltrates persist. Heart size is stable. Mediastinal structures are stable and grossly unremarkable. No evidence for hilar prominence. Degenerative changes dorsal spine. IMPRESSION: 1. Right basilar pleural catheter is redemonstrated. No evidence for sizable pneumothorax at this belia e. Patchy basilar infiltrates persist.
--- NOTE | 2024-01-30 09:16 | P.PN ---
Subjective Progress Note Date: 01/30/24 Principal diagnosis: Spontaneous right-sided pneumothorax, second occurrence, status post placement of thoravent. History of right-sided pneumothorax in April 2022, chronic hypo xemic respiratory failure on home oxygen, COPD, tobacco dependence, hypertension, frequent falls, depression Acute hypoxic respiratory failure secondary to increased right sided pneumothorax with significant subcutaneous emphysema, status post right thoracostomy tube placement by Dr. Rincon, and postoperative day #2 right pigtail catheter placement by interventional radiology. The patient was seen and examined in follow-up today January 30, 2024 at her bedside on the fourth floor medical surgical unit. She is currently laying in bed, is awake, alert, oriented x 3 and is in no acute apparent distress. Denies any complaints of pain or shortness of breath at this time. The patient's right pleural pigtail catheter remains in place to waterseal, no air leak is present. Chest x-ray results this morning show no evidence of sizable pneumothorax. Oxygen saturations are 99% on 3 L nasal cannula and she is achieving 500 mL on her incentive spirometry with encouragement. Objective - Vital Signs Vital signs: Vital Signs Temp 98.4 F 01/30/24 07:22 Pulse 66 01/30/24 07:22 Resp 16 01/30/24 07:22 BP 150/78 01/30/24 07:22 Pulse Ox 99 01/30/24 07:22 FiO2 44 01/24/24 08:03 Intake & Output 01/29/24 01/30/24 01/30/24 18:59 06:59 18:59 Intake Total 0 Output Total 600 0 Balance -600 0 Weight 48 kg Intake: Oral 0 Output: Chest Tube Drainage 0 0 Chest Tube Right 0 0 Urine 600 Other: Voiding Method Bedside Commode Diaper # Voids 1 1 # Bowel Movements 1 - Exam CONSTITUTIONAL: Awake and alert, no pain, no acute distress, cachectic, frail. RESPIRATORY: Lungs sounds diminished bilaterally, right greater than left. Respirations symmetrical, nonlabored. Currently on 3 L nasal cannula with oxygen saturation 99%. Achieving 500 mL on her incentive spirometry with much encouragement. Strong loose cough. Right pigtail catheter in place and is currently clamped. CARDIOVASCULAR: S1, S2 present. Regular rate and rhythm. Palpable peripheral pulses bilaterally. GASTROINTESTINAL: Abdomen soft, nontender, nondistended without masses or organomegaly noted. There is no rebound or guarding present. Active bowel sounds present 4 quadrants. Bowel movement 01/28/24 GENITOURINARY: Carvajal present draining clear yellow urine. INTEGUMENTARY: Skin is warm and dry. No clubbing or cyanosis is present. NEUROLOGIC: Cranial nerves II through XII intact. MUSKULOSKELETAL: Able to move all extremities, generalized weakness. PSYCHIATRIC: Alert and oriented to person, hard of hearing. - Allied health notes Allied health notes reviewed: nursing - Labs CBC & Chem 7: 01/29/24 05:01 01/29/24 05:01 Labs: Abnormal Lab Results - Last 24 Hours (Table) 01/29/24 Range/Units 05:01 Creatinine 0.5 L (0.6-1.5) mg/dL BUN/Creatinine Ratio 36.20 H (12.00-20.00) Ratio Calcium 8.6 L (8.7-10.3) mg/dL - Imaging and Cardiology Chest x-ray: report reviewed, image reviewed Assessment and Plan Assessment: Spontaneous right-sided pneumothorax, second occurrence, S/P thoravent by the ER physicians Acute hypoxic respiratory failure secondary to increased right PTX with significant subq emphysema, S/P placement of right thoracostomy tube by Dr. Rincon,, status post right pigtail catheter placement by interventional radiology History of right-sided pneumothorax in April 2022 Chronic hypoxemic respiratory failure on home oxygen COPD Tobacco dependence Hypertension Frequent falls Depression Medical debility Plan: We will remove her right pleural pigtail catheter today, repeat chest x-ray at noon today. Wean oxygen as tolerated, encourage incentive spirometry 10 times every hour while awake, bronchodilators/steroids per pulmonology. Will monitor daily chest x-rays. Increase activity as tolerated, PT/OT following. Out of bed for all meals. Medical management of other comorbidities per internal medicine, pulmonology. Once her chest tube is removed we will continue to see the patient on an as- needed basis, please reconsult f if she should develop a recurrent pneumothorax Time with Patient: Less than 30
[2024-01-30] MEDS: HYDROcodone/APAP 5-325MG 1 EACH TAB PO PRN (09:47)
--- NOTE | 2024-01-30 12:34 | XR ---
EXAMINATION TYPE: XR chest 1V portable DATE OF EXAM: 01/30/2024 COMPARISON: 01/30/2024 HISTORY: Post pigtail removal TECHNIQUE: Frontal and lateral views of the chest are obtained. FINDINGS: Scattered senescent parenchymal changes noted. Hyperinflation compatible with COPD. Right basilar pig tail catheter has been removed without evidence for recurrent pneumothorax. Patchy basilar opacities persist as well as small right-sided effusion. No evidence for infiltrate. No evidence for atelectasis. Heart size is stable. Mediastinal structures are stable and grossly unremarkable. No evidence for hilar prominence. Degenerative changes dorsal spine. IMPRESSION: 1. Right basilar pigtail catheter has been removed without evidence for recurrent pneumothorax. Patch y basilar opacities persist as well as small right-sided effusion.
--- NOTE | 2024-01-30 13:04 | P.PN ---
Subjective Progress Note Date: 01/30/24 Principal diagnosis: Spontaneous right-sided pneumothorax Progress note dated January 19, 2024. 74-year-old female who was initially seen in consultation on January 16. She had a follow-up with no yesterday. Yesterday, because of a recurrent and more significant right-sided pneumothorax, a chest tube was placed. A 28 Norwegian chest tube was placed on the right side without difficulty. Currently, she is on Airvo, at 40 L/min with an FiO2 55%. She is getting saline at 75 cc an hour. The chest tube was noted to be in proper position on chest x-ray. There is no leak noted. The chest tube remains on suction. Cardiothoracic surgery is following the patient also. Current laboratory includes a white count 6.7, hemoglobin 11.1, hematocrit 35.7, and a normal platelet count. Sodium 140, potassium 4.5, chlorides 107, CO2 29, BUN 44, creatinine 0.69. Glucose is 123. Calcium 8.7. Urine is showing gram-negative bacilli. It has yet to be identified. The patient continues on Rocephin. Other important medications include Symbicort, and DuoNeb, as well as prednisone 40 mg. Progress note dated January 20, 2024. 74-year-old female seen initially in consultation on January 16. The patient was seen yesterday in the intensive care unit, and then again today in the intensive care unit. She is in room 254. She is doing much better today. She is down to 2 L of oxygen. She is getting saline at 75 cc an hour. Her urine shows gram- negative organisms, and she is currently on Rocephin. She is clinically feeling better. Her chest x-ray is stable. There is no air leak from the right side. Current labs include a white count 9.4, hemoglobin 9.9, hematocrit 32, and platelet count of 280,000. Sodium 141, potassium 3.7, chlorides 110, CO2 30, BUN 29, and creatinine 0.71. Procalcitonin level was 0.13. Urine was positive for Escherichia coli. It is an ESBL E. coli, and she will need to be switched to ertapenem. Chest x-ray stable. The patient is seen today January 21, 2024 in follow-up on the regular medical floor. She is currently sitting up in bed. Awake and alert in no acute distress. She is requiring 5 L/min per nasal cannula to maintain O2 saturations in the 90s. No IV fluids. Chest x-ray no sizable pneumothorax. Right-sided chest tube remains in place. Currently off suction and placed to waterseal. Basilar infiltrates persist right greater than left. Urine culture was positive for E. coli. White count 10.2. Hemoglobin 10.5. Platelets 289. Sodium 139. Potassium 3.5. Bicarb 28. BUN 15. Creatinine 0.5. Glucose 103. He is continued on DuoNeb ventilations, Symbicort. Antibiotics in the form of ertapenem. Heparin for DVT prophylaxis. The patient is seen today January 22, 2024 in follow-up on the regular medical floor. She is resting comfortably in bed. Awake and alert in no acute distress. She is maintaining O2 saturations in the 90s on 4 L/min per nasal cannula. Normal saline at KVO. Her chest tube was clamped this morning. Chest x-ray reveals right-sided chest tube in unchanged position. Sizable pneumothorax not evident. Patchy basilar infiltrates persist. Stable chest. Improving subcutaneous emphysema. Urine culture was positive for ESBL E. coli. WBC 7.9. Hemoglobin 11.5. Platelets 338. Sodium 134. Potassium 3.7. Bicarb 31. BUN 16. Creatinine 0.61. Glucose 109. She remains on DuoNeb inhalations, Symbicort. Antibiotics in the form of ertapenem. The patient is seen today January 23, 2024 in follow-up on the regular medical floor. She is sitting up in bed. Awake and alert in no acute distress. She is maintaining good O2 saturations in the 90s on 4 L/min per nasal cannula. Her chest tube was removed yesterday. Today's chest x-ray reveals a small 20 to 25% right apical pneumothorax. She denies any worsening shortness of breath, cough or congestion. She is working with the incentive spirometer. She is continued on DuoNeb inhalations, Symbicort. Urine culture positive for ESBL E. coli. Remains on antibiotics in the form of ertapenem. Heparin for DVT prophylaxis. No new labs today. The patient is seen today January 24, 2024 in follow-up on the regular medical floor. She is currently resting in bed. Awake and alert in no acute distress. She is requiring 7 L high flow nasal cannula to maintain O2 saturations in the 90s. She has normal staying at KVO. She denies any worsening shortness of breath, cough or congestion. Unfortunately her chest x-ray shows slight progression of the right-sided pneumothorax estimated at 25% and increased laterally. Persistent right upper lobe infiltrate. Improving subcutaneous air. The plan now is for a pigtail catheter insertion per interventional radiology. Urine culture was positive for ESBL E. coli. She remains on ertapenem. Co ntinued on DuoNeb inhalations, Symbicort. Heparin for DVT prophylaxis. The patient is seen today January 25, 2024 in follow-up on the regular medical floor. She is currently resting comfortably in bed. Awake and alert in no acute distress. Maintaining O2 saturations in the 90s on 4 L/min per nasal cannula. She did have a pigtail catheter placed yesterday. This is to Pleur- evac. There is a positive leak. Chest x-ray continues to show a pneumothorax on the right. She remains on DuoNeb ventilations, Symbicort. Heparin for DVT prophylaxis. Remains on Invanz. Urine culture was positive for E. coli, ESBL. No new labs today. The patient is seen today January 26, 2024 in follow-up on the regular medical floor. He is sitting up in bed. Awake and alert in no acute distress. Having some chest wall discomfort from the pigtail catheter insertion site. She is maintaining O2 saturations in the upper 90s on 3-1/2 L/min per nasal cannula. Pigtail catheter does remain in place to Pleur-evac. Still with a small leak. She needs increased encouragement regarding the use of the incentive spirometer. She remains on DuoNeb inhalations, Symbicort. Heparin for DVT prophylaxis. Continued on ertapenem for ESBL E. coli urinary tract infection. Chest x-ray showing a tiny right lung base hydropneumothorax, stable. There is continued reduction in the loculated pneumothorax compared to previous. No new labs today. The patient is seen today January 27, 2024 in follow-up on the regular medical floor. She is awake and alert in no acute distress. She is maintaining O2 saturations in the 90s on 1 L/min per nasal cannula. Right-sided pigtail catheter remains in place to Pleur-evac and wall suction. Continues with a positive leak. Minimal pneumothorax on chest x-ray. Less subcutaneous emphysema. She remains on bronchodilators. Heparin for DVT prophylaxis. To biotics in the form of ertapenem for her ESBL E. coli urinary tract infection. The patient is seen today January 28, 2024 in follow-up on the regular medical floor. She is sitting up in bed. Awake and alert in no acute distress. Right- sided pigtail catheter remains in place. No airleak noted presently. Chest x- ray continues to show no sizable pneumothorax. Patchy persistent infiltrate of the right lower lobe and small effusion. Urine culture positive for ESBL E. coli. 8.3. Hemoglobin 10.2. Platelets 306. Sodium 140. Potassium 4.2. Bicarb 32. BUN 19. Creatinine 0.6. Glucose 81. She remains on ertapenem. Continued on DuoNeb inhalations, Symbicort. Heparin for DVT prophylaxis. Patient was seen today on 01/30/24, doing well, her Pleurx catheter has been removed, follow-up chest x-ray showed no sizable pneumothorax. Patient is doing well from our perspective, remains on antibiotics for her urinary tract infection/ESBL E. coli.Being addressed by infectious disease on the case, remains on bronchodilators including DuoNeb and Symbicort Objective - Vital Signs Vital signs: Vital Signs Temp 98.4 F 01/30/24 07:22 Pulse 80 01/30/24 09:22 Resp 16 01/30/24 08:00 BP 150/78 01/30/24 07:22 Pulse Ox 99 01/30/24 07:22 FiO2 44 01/24/24 08:03 Intake & Output 01/29/24 01/30/24 01/30/24 18:59 06:59 18:59 Intake Total 0 Output Total 600 0 Balance -600 0 Weight 48 kg Intake: Oral 0 Output: Chest Tube Drainage 0 0 Chest Tube Right 0 0 Urine 600 Other: Voiding Method Bedside Commode Bedside Commode Diaper Diaper # Voids 1 1 # Bowel Movements 1 - Exam GENERAL EXAM: Alert, frail, cachectic 74-year-old female, on 4 L nasal cannula, in no acute distress. HEAD: Normocephalic. EYES: Normal reaction of pupils, equal size. NOSE: Clear with pink turbinates. THROAT: No erythema or exudates. NECK: No masses, no JVD. CHEST: No chest wall deformity. LUNGS: Clear bilaterally no rhonchi no wheezes diminished at the bases CVS: S1 and S2 normal with no audible murmur, regular rhythm. ABDOMEN: No hepatosplenomegaly, normal bowel sounds, no guarding or rigidity. SPINE: No scoliosis or deformity SKIN: No rashes. There was some subcutaneous emphysema CENTRAL NERVOUS SYSTEM: No focal deficits, tone is normal in all 4 extremities. EXTREMITIES: There is no peripheral edema. No clubbing, no cyanosis. Peripheral pulses are intact. - Labs CBC & Chem 7: 01/29/24 05:01 01/29/24 05:01 Assessment and Plan Assessment: Pression: Acute right-sided pneumothorax, initially treated with a Thora vent device, and then a 28 Norwegian chest tube, placed on waterseal 01/21/2024. Removed 01/22/2024. Increasing pneumothorax on 01/24/2024 and now with a pigtail catheter placed. Positive leak. Follow-up chest x-ray today January 28, 2024 reveals no sizable pneumothorax, catheter removed on 01/29, and chest x-ray is unremarkable, no evidence of pneumothorax Acute hypoxemic respiratory failure secondary to COPD and right pneumothorax ESBL E. coli urinary tract infection. Currently on ertapenem Mental status changes, improved History of traumatic right-sided pneumothorax 2021 History of severe emphysema Ongoing tobacco use with nicotine addiction History of falls History of medication noncompliance Hypertension Poor overall functional performance based on the above-mentioned multiple comorbidities Anorexia/cachexia syndrome Plan: The patient was seen and evaluated Chest x-ray was reviewed No sizable right-sided pneumothorax Encourage increased use of the incentive spirometer Consider discharge planning/placement if cleared by other consultants Overall prognosis is quite guarded We will continue to follow Time with Patient: Less than 30
[2024-01-30] MEDS: NYSTATIN 100,000 UNIT/ML SUSP 500,000 UNIT/5 ML CUP PO SCH (14:00)
--- NOTE | 2024-01-30 21:00 | PN ---
PROGRESS NOTE DATE OF SERVICE: 01/30/2024 SUBJECTIVE: This is a 74-year-old woman, who was admitted with recurrent pneumothorax, had chest tube removed today. No chest pain. No palpitation. OBJECTIVE: VITAL SIGNS: Pulse 78, blood pressure 150/70, respirations 18. CHEST: Bilateral scattered rhonchi and crackles. ABDOMEN: Soft. NERVOUS SYSTEM: Nonfocal LABORATORY DATA: Hemoglobin is 10. ASSESSMENT: 1. Chronic obstructive pulmonary disease acute exacerbation with recurrent right pneumothorax, status post chest tube drainage. 2. Bullous emphysema. 3. Malnutrition. 4. Gait dysfunction. 5. Multiple complex medical issues. RECOMMENDATIONS: Recommend to continue current management and continue symptomatic treatment. Recommend repeat labs and PT, OT evaluation, possible ECF rehab. Further recommendations to follow. MMODL / IJN: [id number] /
[2024-01-31 10:42] LABS: Basophils # (A) 0.09 X 10*3/uL (0.00-0.10); Basophils % (A) 0.9 %; Eosinophils # (A) 0.19 X 10*3/uL (0.04-0.35); Eosinophils % (A) 1.9 %; HCT 33.6 % (37.2-46.3); HGB 10.3 g/dL (12.0-15.0); Lymphocytes # (A) 1.57 X 10*3/uL (0.90-5.00); Lymphocytes % (A) 15.7 %; MCH 28.2 pg (27.0-32.0); MCHC 30.7 g/dL (32.0-37.0); MCV 92.1 FL (80.0-97.0); Monocytes # (A) 0.48 X 10*3/uL (0.20-1.00); Monocytes % (A) 4.8 %; NRBC Per 100 WBC 0 X 10*3/uL (0.00-0.01); Neutrophils # (A) 7.44 X 10*3/uL (1.80-7.70); Neutrophils % (A) 74.5 %; Platelet Count 297 X 10*3/uL (140-440); RBC 3.65 X 10*6/uL (4.10-5.20); RDW 16.3 % (11.5-14.5); WBC 9.99 X 10*3/uL (4.50-10.00)
[2024-01-31 10:54] LABS: Blood Urea Nitrogen 18.6 mg/dL (9.0-27.0); Calcium 8.7 mg/dL (8.7-10.3); Carbon Dioxide 28.9 mmol/L (21.6-31.8); Chloride 102 mmol/L (96-109); Glucose 85 mg/dL (70-110); Potassium 4.4 mmol/L (3.5-5.5); Sodium 140 mmol/L (135-145)
--- NOTE | 2024-01-31 12:15 | P.PN ---
Subjective Progress Note Date: 01/30/24 Principal diagnosis: Reason for follow-up is ESBL E. coli urinary tract infection Patient is a 74-year-old female with a past medical history significant for COPD hypertension anxiety depression current everyday smoker, patient presenting to the hospital with increasing shortness of breath has been diagnosed with a pneumothorax status post right-sided chest tube also have a positive UA with urine culture positive for ESBL prompted this consultation. On today's evaluation that is 01/30/2024, patient has been afebrile, patient is breathing comfortably and is currently on 4 L nasal oxygen, patient denies having any significant cough no chest pain shortness of breath, patient denies nausea vomiting or diarrhea and no abdominal pain, no new symptoms. Patient white count 7.7, creatinine 0.5 Objective - Vital Signs Vital signs: Vital Signs Temp 98.4 F 01/30/24 07:22 Pulse 80 01/30/24 09:22 Resp 16 01/30/24 08:00 BP 150/78 01/30/24 07:22 Pulse Ox 99 01/30/24 07:22 FiO2 44 01/24/24 08:03 Intake & Output 01/29/24 01/30/24 01/30/24 18:59 06:59 18:59 Intake Total 0 Output Total 600 0 Balance -600 0 Weight 48 kg Intake: Oral 0 Output: Chest Tube Drainage 0 0 Chest Tube Right 0 0 Urine 600 Other: Voiding Method Bedside Commode Bedside Commode Diaper Diaper # Voids 1 1 # Bowel Movements 1 - Exam GENERAL DESCRIPTION: An elderly female lying in bed in no distress RESPIRATORY SYSTEM: Unlabored breathing , decreased breath sounds at bases HEART: S1 S2 regular rate and rhythm , ABDOMEN: Soft , no tenderness EXTREMITIES: No edema feet - Labs CBC & Chem 7: 01/31/24 06:56 01/31/24 06:56 Assessment and Plan (1) Infection due to ESBL-producing Escherichia coli Current Visit: Yes Status: Acute Code(s): A49.8 - OTHER BACTERIAL INFECTIONS OF UNSPECIFIED SITE; Z16.12 - EXTENDED SPECTRUM BETA LACTAMASE (ESBL) RESISTANCE SNOMED Code(s): 608802948 (2) UTI (urinary tract infection) Current Visit: No Status: Acute Code(s): N39.0 - URINARY TRACT INFECTION, SITE NOT SPECIFIED SNOMED Code(s): 27799975 Plan: 1patient with initial presentation to the hospital for increasing shortness of breath patient did have a significantly positive UA from urinary symptoms concerning for symptomatic urinary tract infection 2-patient has been afebrile and white count has been normal, 3patient to continue with Invanz to finish a 10-day course of therapy Dictation was produced using [employer] dictation software. please excuse any gram matical, word or spelling errors. Time with Patient: Less than 30
--- NOTE | 2024-01-31 12:16 | P.PN ---
Subjective Progress Note Date: 01/31/24 Principal diagnosis: Reason for follow-up is ESBL E. coli urinary tract infection Patient is a 74-year-old female with a past medical history significant for COPD hypertension anxiety depression current everyday smoker, patient presenting to the hospital with increasing shortness of breath has been diagnosed with a pneumothorax status post right-sided chest tube also have a positive UA with urine culture positive for ESBL prompted this consultation. On today's evaluation that is 01/31/2024, Patient is afebrile this morning patient denies having any chest pain no worsening shortness of breath or cough, the patient is currently on 4 L current oxygen, patient denies any abdominal pain no diarrhea no nausea no vomiting. The patient white count is 9.99, creatinine 0.5 Objective - Vital Signs Vital signs: Vital Signs Temp 98.6 F 01/31/24 07:03 Pulse 72 01/31/24 09:25 Resp 20 01/31/24 07:03 BP 150/70 01/31/24 07:03 Pulse Ox 94 L 01/31/24 09:12 FiO2 44 01/24/24 08:03 Intake & Output 01/30/24 01/31/24 01/31/24 18:59 06:59 18:59 Intake Total 50 Balance 50 Weight 48.1 kg Intake: Oral 50 Other: Voiding Method Bedside Commode Bedside Commode Diaper Diaper # Voids 4 1 - Exam GENERAL DESCRIPTION: An elderly female lying in bed in no distress RESPIRATORY SYSTEM: Unlabored breathing , decreased breath sounds at bases HEART: S1 S2 regular rate and rhythm , ABDOMEN: Soft , no tenderness EXTREMITIES: No edema feet - Labs CBC & Chem 7: 01/31/24 06:56 01/31/24 06:56 Assessment and Plan (1) Infection due to ESBL-producing Escherichia coli Current Visit: Yes Status: Acute Code(s): A49.8 - OTHER BACTERIAL INFECTIONS OF UNSPECIFIED SITE; Z16.12 - EXTENDED SPECTRUM BETA LACTAMASE (ESBL) RESISTANCE SNOMED Code(s): 460313756 (2) UTI (urinary tract infection) Current Visit: No Status: Acute Code(s): N39.0 - URINARY TRACT INFECTION, SITE NOT SPECIFIED SNOMED Code(s): 15464391 Plan: 1patient with initial presentation to the hospital for increasing shortness of breath patient did have a significantly positive UA from urinary symptoms concerning for symptomatic urinary tract infection 2-patient has been afebrile and white count has been normal, 3patient has received adequate antibiotic therapy for underlying infection, we will go ahead and discontinue Invanz and monitor the patient closely off antibiotic Dictation was produced using [employer] dictation software. please excuse any grammatical, word or spelling errors. Time with Patient: Less than 30
--- NOTE | 2024-01-31 12:30 | P.DS ---
Providers Date of admission: 01/17/24 03:07 Attending physician: Loy Polo Consults: 01/17/24 03:11 Consult Physician Routine Consulting Provider: Woo Rincon Consult Reason/Comments: pneumothorax Do you want consulting provider notified?: Already Contacted 01/17/24 03:22 Consult Physician Routine Consulting Provider: Aguila Salas Consult Reason/Comments: Pneumothorax Do you want consulting provider notified?: Yes 01/20/24 12:00 Consult Physician Routine Consulting Provider: Christy Zhu Consult Reason/Comments: ESBL UTI Do you want consulting provider notified?: Yes [facility] Course: Diagnosis Right sided pneumothorax Acute hypoxemic respiratory failure from the pneumothorax continues on 6L hi flow cannula Acute COPD exacerbation Oxygen dependent COPD maintained on 3L of oxygen outpatient Underweight; cachexia Acute urinary tract infection with ESBL E.Coli Hypertension History of previous traumatic pneumothorax Chronic nicotine use Discharge disposition Stable for discharge to [facility]. Patient has completed course of antibiotic therapy will not require any further antibiotics on discharge. Patient will continue on her same home inhalers as well as bronchodilators as needed. Patient is maintained chronically on 3 L of oxygen and will discharge on 4 L of oxygen with adequate oxygen saturations could likely be weaned back down to 3 L that she wears at home. Patient has completed a course of steroids on the hospital as well. Continue with nystatin swish and swallow for 6 more days. Recommend to repeat blood work in 2-3 days. Hospital course This is a 74-year-old female presented to the emergency department with shortness of breath. Patient was brought to the emergency department by EMS, who reported they found her in significant distress sitting in the tripod position and tachypneic. Initial chest x-ray upon arriving in the emergency department showed the patient had a right-sided pneumothorax, for which she had a right-sided Thora vent placed. Her past medical history is significant for previous traumatic pneumothorax in April 2022, chronic hypoxemic respiratory failure on home oxygen, tobacco dependence and COPD for which she takes fluticasonesalmeterol and DuoNeb. Upon admission to the emergency department her oxygen saturation was 93 on BiPAP and respiratory rate was 30, currently is satting at 96% on 3 L nasal cannula. ABG completed this morning showed pCO2 of 59, pO2 59, HCO3 of 34, ABG O2 saturation of 91.2. She was admitted to the hospital for consult placed to pulmonary services and was moved to the intensive care unit. Patient was placed on air well high flow nasal cannula and ended up having a right thoracostomy tube placed by pulmonary services for reexpansion of the right lung. Patient was found to have evidence of subcutaneous emphysema which have resolved once a thoracostomy tube was placed. Patient was treated for an acute COPD exacerbation with IV Solu-Medrol, Dilators. Patient was also found to have a positive urinary tract infection with culture showing ESBL E. coli. Infectious disease was consulted for management and patient received 10 days of IV ertapenem and has completed this course of therapy one the hospital. Patient had been initially placed on azithromycin and Rocephin for the CP exacerbation. Because it will level shows 0.13. Patient has been able to wean back down to nasal cannula oxygen support and currently atReason oxygen saturations of 94%. She has moved out of the intensive care unit is now monitored on the medical floor. Patient is doing well no chest pain or shortness of breath and nausea vomiting or diarrhea she is awake alert oriented 3 she has been afebrile. Patient has been cleared by pulmonary services as well as infectious disease for discharge. The Pleurx catheter has been removed and follow-up chest x-ray reveals no sizable pneumothorax. Patient will discharge to subacute rehab. Please see medication reconciliation for list of current medications. Thank you for allowing us participate in the care of this patient. Total time taken in discharge planning greater than 35 minutes The impression and plan of care has been dictated by Celestina Mary, Nurse Practitioner as directed. Dr. Gaby MD I have performed a history and physical examination and medical decision making of this patient, discussed the same with the dictator, and agree with the dictators assessment and plan as written, documented as a scribe. Based on total visit time, I have performed more than 50% of this visit. Patient Condition at Discharge: Fair Plan - Discharge Summary New Discharge Prescriptions: New Heparin Sodium,Porcine (1 ml) [Heparin Sodium] 5,000 unit SQ Q12HR each Nystatin 100,000 Unit/ml Susp [Mycostatin Oral Susp] 500,000 unit PO QID 6 Days #0 ml HYDROcodone/APAP 5-325MG [Enfield 5-325] 1 each PO Q6H PRN tab PRN Reason: Pain ALPRAZolam [Xanax] 0.25 mg PO BID PRN tab PRN Reason: Anxiety Pantoprazole [Protonix] 40 mg PO DAILY tab Continue Ipratropium-Albuterol Nebulize [Duoneb 0.5 mg-3 mg/3 ml Soln] 3 ml INHALATION RT-Q4H Fluticasone Propion/Salmeterol [Fluticasone-Salmeterol 250-50] 1 puff INHALATION RT-BID Acetaminophen [Tylenol] 650 mg PO Q6H PRN PRN Reason: Pain Folic Acid 1 mg PO DAILY #30 tablet Multivitamins, Thera [Multivitamin (formulary)] 1 tab PO DAILY #30 tablet Thiamine [Vitamin B-1] 100 mg PO DAILY #30 tablet Cholecalciferol [Vitamin D3 (25 Mcg = 1000 Iu)] 50 mcg PO DAILY Discontinued Insulin Lispro See Protocol SQ ACHS Discharge Medication List Folic Acid 1 mg PO DAILY #30 tablet 12/25/23 [Rx] Multivitamins, Thera [Multivitamin (formulary)] 1 tab PO DAILY #30 tablet 12/25/23 [Rx] Thiamine [Vitamin B-1] 100 mg PO DAILY #30 tablet 12/25/23 [Rx] Acetaminophen [Tylenol] 650 mg PO Q6H PRN 01/17/24 [History] Cholecalciferol [Vitamin D3 (25 Mcg = 1000 Iu)] 50 mcg PO DAILY 01/17/24 [History] Fluticasone Propion/Salmeterol [Fluticasone-Salmeterol 250-50] 1 puff INHALATION RT-BID 01/17/24 [History] Ipratropium-Albuterol Nebulize [Duoneb 0.5 mg-3 mg/3 ml Soln] 3 ml INHALATION RT-Q4H 01/17/24 [History] ALPRAZolam [Xanax] 0.25 mg PO BID PRN tab 01/31/24 [Rx] HYDROcodone/APAP 5-325MG [Enfield 5-325] 1 each PO Q6H PRN tab 01/31/24 [Rx] Heparin Sodium,Porcine (1 ml) [Heparin Sodium] 5,000 unit SQ Q12HR each 01/31/24 [Rx] Nystatin 100,000 Unit/ml Susp [Mycostatin Oral Susp] 500,000 unit PO QID 6 Days #0 ml 01/31/24 [Rx] Pantoprazole [Protonix] 40 mg PO DAILY tab 01/31/24 [Rx] Follow up Appointment(s)/Referral(s): Janel Bailey MD [Primary Care Provider] - 1-2 days Woo Rincon DO [Doctor of Osteopathic Medicine] - 10 Days Sly Henley DO [STAFF PHYSICIAN] - 1-2 Days (Follow at [facility] ) Christy Zhu MD [STAFF PHYSICIAN] - 1 Week Ambulatory/Diagnostic Orders: Basic Metabolic Panel [LAB.AMB] Location: None Selected Complete Blood Count w/diff [LAB.AMB] Time Frame: 3 Days, Location: None Eli ected Discharge Disposition: TRANSFER TO SNF/ECF
[2024-01-31 13:21] VITALS: BMI 18.1
--- NOTE | 2024-01-31 14:45 | P.PN ---
Subjective Progress Note Date: 01/31/24 Progress note dated January 19, 2024. 74-year-old female who was initially seen in consultation on January 16. She had a follow-up with no yesterday. Yesterday, because of a recurrent and more significant right-sided pneumothorax, a chest tube was placed. A 28 Australian chest tube was placed on the right side without difficulty. Currently, she is on Airvo, at 40 L/min with an FiO2 55%. She is getting saline at 75 cc an hour. The chest tube was noted to be in proper position on chest x-ray. There is no leak noted. The chest tube remains on suction. Cardiothoracic surgery is following the patient also. Current laboratory includes a white count 6.7, hemoglobin 11.1, hematocrit 35.7, and a normal platelet count. Sodium 140, potassium 4.5, chlorides 107, CO2 29, BUN 44, creatinine 0.69. Glucose is 123. Calcium 8.7. Urine is showing gram-negative bacilli. It has yet to be identified. The patient continues on Rocephin. Other important medications include Symbicort, and DuoNeb, as well as prednisone 40 mg. Progress note dated January 20, 2024. 74-year-old female seen initially in consultation on January 16. The patient was seen yesterday in the intensive care unit, and then again today in the intensive care unit. She is in room 254. She is doing much better today. She is down to 2 L of oxygen. She is getting saline at 75 cc an hour. Her urine shows gram- negative organisms, and she is currently on Rocephin. She is clinically feeling better. Her chest x-ray is stable. There is no air leak from the right side. Current labs include a white count 9.4, hemoglobin 9.9, hematocrit 32, and platelet count of 280,000. Sodium 141, potassium 3.7, chlorides 110, CO2 30, BUN 29, and creatinine 0.71. Procalcitonin level was 0.13. Urine was positive for Escherichia coli. It is an ESBL E. coli, and she will need to be switched to ertapenem. Chest x-ray stable. The patient is seen today January 21, 2024 in follow-up on the regular medical floor. She is currently sitting up in bed. Awake and alert in no acute distress. She is requiring 5 L/min per nasal cannula to maintain O2 saturations in the 90s. No IV fluids. Chest x-ray no sizable pneumothorax. Right-sided chest tube remains in place. Currently off suction and placed to waterseal. Basilar infiltrates persist right greater than left. Urine culture was positive for E. coli. White count 10.2. Hemoglobin 10.5. Platelets 289. Sodium 139. Potassium 3.5. Bicarb 28. BUN 15. Creatinine 0.5. Glucose 103. He is continued on DuoNeb ventilations, Symbicort. Antibiotics in the form of ertapenem. Heparin for DVT prophylaxis. The patient is seen today January 22, 2024 in follow-up on the regular medical floor. She is resting comfortably in bed. Awake and alert in no acute distress. She is maintaining O2 saturations in the 90s on 4 L/min per nasal cannula. Normal saline at KVO. Her chest tube was clamped this morning. Chest x-ray reveals right-sided chest tube in unchanged position. Sizable pneumot horax not evident. Patchy basilar infiltrates persist. Stable chest. Improving subcutaneous emphysema. Urine culture was positive for ESBL E. coli. WBC 7.9. Hemoglobin 11.5. Platelets 338. Sodium 134. Potassium 3.7. Bicarb 31. BUN 16. Creatinine 0.61. Glucose 109. She remains on DuoNeb inhalations, Symbicort. Antibiotics in the form of ertapenem. The patient is seen today January 23, 2024 in follow-up on the regular medical floor. She is sitting up in bed. Awake and alert in no acute distress. She is maintaining good O2 saturations in the 90s on 4 L/min per nasal cannula. Her chest tube was removed yesterday. Today's chest x-ray reveals a small 20 to 25% right apical pneumothorax. She denies any worsening shortness of breath, cough or congestion. She is working with the incentive spirometer. She is continued on DuoNeb inhalations, Symbicort. Urine culture positive for ESBL E. coli. Remains on antibiotics in the form of ertapenem. Heparin for DVT prophylaxis. No new labs today. The patient is seen today January 24, 2024 in follow-up on the regular medical floor. She is currently resting in bed. Awake and alert in no acute distress. She is requiring 7 L high flow nasal cannula to maintain O2 saturations in the 90s. She has normal staying at KVO. She denies any worsening shortness of breath, cough or congestion. Unfortunately her chest x-ray shows slight progression of the right-sided pneumothorax estimated at 25% and increased laterally. Persistent right upper lobe infiltrate. Improving subcutaneous air. The plan now is for a pigtail catheter insertion per interventional radiology. Urine culture was positive for ESBL E. coli. She remains on ertapenem. Continued on DuoNeb inhalations, Symbicort. Heparin for DVT prophylaxis. The patient is seen today January 25, 2024 in follow-up on the regular medical floor. She is currently resting comfortably in bed. Awake and alert in no acute distress. Maintaining O2 saturations in the 90s on 4 L/min per nasal cannula. She did have a pigtail catheter placed yesterday. This is to Pleur- evac. There is a positive leak. Chest x-ray continues to show a pneumothorax on the right. She remains on DuoNeb ventilations, Symbicort. Heparin for DVT prophylaxis. Remains on Invanz. Urine culture was positive for E. coli, ESBL. No new labs today. The patient is seen today January 26, 2024 in follow-up on the regular medical floor. He is sitting up in bed. Awake and alert in no acute distress. Having some chest wall discomfort from the pigtail catheter insertion site. She is maintaining O2 saturations in the upper 90s on 3-1/2 L/min per nasal cannula. Pigtail catheter does remain in place to Pleur-evac. Still with a small leak. She needs increased encouragement regarding the use of the incentive spirometer. She remains on DuoNeb inhalations, Symbicort. Heparin for DVT prophylaxis. Continued on ertapenem for ESBL E. coli urinary tract infection. Chest x-ray showing a tiny right lung base hydropneumothorax, stable. There is continued reduction in the loculated pneumothorax compared to previous. No new labs today. The patient is seen today January 27, 2024 in follow-up on the regular medical floor. She is awake and alert in no acute distress. She is maintaining O2 saturations in the 90s on 1 L/min per nasal cannula. Right-sided pigtail catheter remains in place to Pleur-evac and wall suction. Continues with a positive leak. Minimal pneumothorax on chest x-ray. Less subcutaneous emphysema. She remains on bronchodilators. Heparin for DVT prophylaxis. To biotics in the form of ertapenem for her ESBL E. coli urinary tract infection. The patient is seen today January 28, 2024 in follow-up on the regular medical floor. She is sitting up in bed. Awake and alert in no acute distress. Right- sided pigtail catheter remains in place. No airleak noted presently. Chest x- ray continues to show no sizable pneumothorax. Patchy persistent infiltrate of the right lower lobe and small effusion. Urine culture positive for ESBL E. coli. 8.3. Hemoglobin 10.2. Platelets 306. Sodium 140. Potassium 4.2. Bicarb 32. BUN 19. Creatinine 0.6. Glucose 81. She remains on ertapenem. Continued on DuoNeb inhalations, Symbicort. Heparin for DVT prophylaxis. The patient is seen today January 29, 2024 in follow-up on the regular medical floor. She is currently up in a chair, awake and alert in no acute distress. She is maintaining O2 saturations in the 90s on 2 L/min per nasal cannula. Pigtail catheter remains in place. No leak demonstrated today. No basilar infiltrates. No evidence of sizable pneumothorax. She remains on ertapenem. Continued on DuoNeb inhalations, Symbicort. Heparin for DVT prophylaxis. White count 7.8. Hemoglobin 10.0. Platelets 307. Sodium 140. Potassium 4.1. Bicarb 30. BUN 18. Creatinine 0.5. Glucose 76. The patient is seen today January 31, 2024 in follow-up on the regular medical floor. She is currently sitting up in bed having breakfast. Awake and alert in no acute distress. Feeling better each day. No worsening shortness of breath, cough or congestion. He is maintaining O2 saturations in the mid 90s on 4 L/min per nasal cannula. She is afebrile. Hemodynamically stable. White count 9.9. Hemoglobin 10.3. Platelets 297. Sodium 140. Potassium 4.4. Bicarb 29. BUN 19. Creatinine 0.5. Glucose 85. She remains on DuoNeb inhalations, Symbicort. Heparin for DVT prophylaxis. She has completed a course of Invanz. Objective - Vital Signs Vital signs: Vital Signs Temp 97.4 F L 01/31/24 14:00 Pulse 75 01/31/24 14:00 Resp 20 01/31/24 14:00 BP 98/60 01/31/24 14:00 Pulse Ox 95 01/31/24 14:00 FiO2 44 01/24/24 08:03 Intake & Output 01/30/24 01/31/24 01/31/24 18:59 06:59 18:59 Intake Total 100 Balance 100 Weight 48.1 kg 48.1 kg Intake: Oral 100 Other: Voiding Method Bedside Commode Bedside Commode Bedside Commode Diaper Diaper Diaper # Voids 4 1 - Exam GENERAL EXAM: Alert, frail, cachectic 74-year-old female, on 4 L nasal cannula, in no acute distress. HEAD: Normocephalic. EYES: Normal reaction of pupils, equal size. NOSE: Clear with pink turbinates. THROAT: No erythema or exudates. NECK: No masses, no JVD. CHEST: No chest wall deformity. LUNGS: Equal air entry with basilar crackles right greater than left. Right- sided pigtail catheter removed. CVS: S1 and S2 normal with no audible murmur, regular rhythm. ABDOMEN: No hepatosplenomegaly, normal bowel sounds, no guarding or rigidity. SPINE: No scoliosis or deformity SKIN: No rashes. There was some subcutaneous emphysema CENTRAL NERVOUS SYSTEM: No focal deficits, tone is normal in all 4 extremities. EXTREMITIES: There is no peripheral edema. No clubbing, no cyanosis. Peripheral pulses are intact. - Labs CBC & Chem 7: 01/31/24 06:56 01/31/24 06:56 Labs: Abnormal Lab Results - Last 24 Hours (Table) 01/31/24 01/31/24 Range/Units 06:56 06:56 RBC 3.65 L (4.10-5.20) X 10*6/uL Hgb 10.3 L (12.0-15.0) g/dL Hct 33.6 L (37.2-46.3) % MCHC 30.7 L (32.0-37.0) g/dL RDW 16.3 H (11.5-14.5) % Immature Gran # 0.22 H (0.00-0.04) X 10*3/uL Creatinine 0.5 L (0.6-1.5) mg/dL BUN/Creatinine Ratio 37.20 H (12.00-20.00) Ratio Assessment and Plan Assessment: Acute right-sided pneumothorax, initially treated with a Thora vent device, and then a 28 Australian chest tube, placed on waterseal 01/21/2024. Removed 01/22/2024. Increasing pneumothorax on 01/24/2024 and now with a pigtail catheter placed. Follow-up chest x-ray today January 19, 2024 reveals no sizable pneumothorax Acute hypoxemic respiratory failure secondary to COPD and right pneumothorax ESBL E. coli urinary tract infection. Currently on ertapenem Mental status changes, improved History of traumatic right-sided pneumothorax 2021 History of severe emphysema Ongoing tobacco use with nicotine addiction History of falls History of medication noncompliance Hypertension Poor overall functional performance based on the above-mentioned multiple comorbidities Anorexia/cachexia syndrome Plan: The patient was seen and evaluated Labs and medications reviewed Stable for discharge from the pulmonary standpoint Encourage increased use of the incentive spirometer Continue home oxygen and pulmonary medications Plan is for subacute rehab at [facility] I have personally seen and examined the patient, performed the documentation and the assessment and plan as written. Number of minutes spent on the visit: 10.
--- NOTE | 2024-02-01 13:40 | P.PN ---
Subjective Progress Note Date: 02/01/24 Progress note dated January 19, 2024. 74-year-old female who was initially seen in consultation on January 16. She had a follow-up with no yesterday. Yesterday, because of a recurrent and more significant right-sided pneumothorax, a chest tube was placed. A 28 Iraqi chest tube was placed on the right side without difficulty. Currently, she is on Airvo, at 40 L/min with an FiO2 55%. She is getting saline at 75 cc an hour. The chest tube was noted to be in proper position on chest x-ray. There is no leak noted. The chest tube remains on suction. Cardiothoracic surgery is following the patient also. Current laboratory includes a white count 6.7, hemoglobin 11.1, hematocrit 35.7, and a normal platelet count. Sodium 140, potassium 4.5, chlorides 107, CO2 29, BUN 44, creatinine 0.69. Glucose is 123. Calcium 8.7. Urine is showing gram-negative bacilli. It has yet to be identified. The patient continues on Rocephin. Other important medications include Symbicort, and DuoNeb, as well as prednisone 40 mg. Progress note dated January 20, 2024. 74-year-old female seen initially in consultation on January 16. The patient was seen yesterday in the intensive care unit, and then again today in the intensive care unit. She is in room 254. She is doing much better today. She is down to 2 L of oxygen. She is getting saline at 75 cc an hour. Her urine shows gram- negative organisms, and she is currently on Rocephin. She is clinically feeling better. Her chest x-ray is stable. There is no air leak from the right side. Current labs include a white count 9.4, hemoglobin 9.9, hematocrit 32, and platelet count of 280,000. Sodium 141, potassium 3.7, chlorides 110, CO2 30, BUN 29, and creatinine 0.71. Procalcitonin level was 0.13. Urine was positive for Escherichia coli. It is an ESBL E. coli, and she will need to be switched to ertapenem. Chest x-ray stable. The patient is seen today January 21, 2024 in follow-up on the regular medical floor. She is currently sitting up in bed. Awake and alert in no acute distress. She is requiring 5 L/min per nasal cannula to maintain O2 saturations in the 90s. No IV fluids. Chest x-ray no sizable pneumothorax. Right-sided chest tube remains in place. Currently off suction and placed to waterseal. Basilar infiltrates persist right greater than left. Urine culture was positive for E. coli. White count 10.2. Hemoglobin 10.5. Platelets 289. Sodium 139. Potassium 3.5. Bicarb 28. BUN 15. Creatinine 0.5. Glucose 103. He is continued on DuoNeb ventilations, Symbicort. Antibiotics in the form of ertapenem. Heparin for DVT prophylaxis. The patient is seen today January 22, 2024 in follow-up on the regular medical floor. She is resting comfortably in bed. Awake and alert in no acute distress. She is maintaining O2 saturations in the 90s on 4 L/min per nasal cannula. Normal saline at KVO. Her chest tube was clamped this morning. Chest x-ray reveals right-sided chest tube in unchanged position. Sizable pneumot horax not evident. Patchy basilar infiltrates persist. Stable chest. Improving subcutaneous emphysema. Urine culture was positive for ESBL E. coli. WBC 7.9. Hemoglobin 11.5. Platelets 338. Sodium 134. Potassium 3.7. Bicarb 31. BUN 16. Creatinine 0.61. Glucose 109. She remains on DuoNeb inhalations, Symbicort. Antibiotics in the form of ertapenem. The patient is seen today January 23, 2024 in follow-up on the regular medical floor. She is sitting up in bed. Awake and alert in no acute distress. She is maintaining good O2 saturations in the 90s on 4 L/min per nasal cannula. Her chest tube was removed yesterday. Today's chest x-ray reveals a small 20 to 25% right apical pneumothorax. She denies any worsening shortness of breath, cough or congestion. She is working with the incentive spirometer. She is continued on DuoNeb inhalations, Symbicort. Urine culture positive for ESBL E. coli. Remains on antibiotics in the form of ertapenem. Heparin for DVT prophylaxis. No new labs today. The patient is seen today January 24, 2024 in follow-up on the regular medical floor. She is currently resting in bed. Awake and alert in no acute distress. She is requiring 7 L high flow nasal cannula to maintain O2 saturations in the 90s. She has normal staying at KVO. She denies any worsening shortness of breath, cough or congestion. Unfortunately her chest x-ray shows slight progression of the right-sided pneumothorax estimated at 25% and increased laterally. Persistent right upper lobe infiltrate. Improving subcutaneous air. The plan now is for a pigtail catheter insertion per interventional radiology. Urine culture was positive for ESBL E. coli. She remains on ertapenem. Continued on DuoNeb inhalations, Symbicort. Heparin for DVT prophylaxis. The patient is seen today January 25, 2024 in follow-up on the regular medical floor. She is currently resting comfortably in bed. Awake and alert in no acute distress. Maintaining O2 saturations in the 90s on 4 L/min per nasal cannula. She did have a pigtail catheter placed yesterday. This is to Pleur- evac. There is a positive leak. Chest x-ray continues to show a pneumothorax on the right. She remains on DuoNeb ventilations, Symbicort. Heparin for DVT prophylaxis. Remains on Invanz. Urine culture was positive for E. coli, ESBL. No new labs today. The patient is seen today January 26, 2024 in follow-up on the regular medical floor. He is sitting up in bed. Awake and alert in no acute distress. Having some chest wall discomfort from the pigtail catheter insertion site. She is maintaining O2 saturations in the upper 90s on 3-1/2 L/min per nasal cannula. Pigtail catheter does remain in place to Pleur-evac. Still with a small leak. She needs increased encouragement regarding the use of the incentive spirometer. She remains on DuoNeb inhalations, Symbicort. Heparin for DVT prophylaxis. Continued on ertapenem for ESBL E. coli urinary tract infection. Chest x-ray showing a tiny right lung base hydropneumothorax, stable. There is continued reduction in the loculated pneumothorax compared to previous. No new labs today. The patient is seen today January 27, 2024 in follow-up on the regular medical floor. She is awake and alert in no acute distress. She is maintaining O2 saturations in the 90s on 1 L/min per nasal cannula. Right-sided pigtail catheter remains in place to Pleur-evac and wall suction. Continues with a positive leak. Minimal pneumothorax on chest x-ray. Less subcutaneous emphysema. She remains on bronchodilators. Heparin for DVT prophylaxis. To biotics in the form of ertapenem for her ESBL E. coli urinary tract infection. The patient is seen today January 28, 2024 in follow-up on the regular medical floor. She is sitting up in bed. Awake and alert in no acute distress. Right- sided pigtail catheter remains in place. No airleak noted presently. Chest x- ray continues to show no sizable pneumothorax. Patchy persistent infiltrate of the right lower lobe and small effusion. Urine culture positive for ESBL E. coli. 8.3. Hemoglobin 10.2. Platelets 306. Sodium 140. Potassium 4.2. Bicarb 32. BUN 19. Creatinine 0.6. Glucose 81. She remains on ertapenem. Continued on DuoNeb inhalations, Symbicort. Heparin for DVT prophylaxis. The patient is seen today January 29, 2024 in follow-up on the regular medical floor. She is currently up in a chair, awake and alert in no acute distress. She is maintaining O2 saturations in the 90s on 2 L/min per nasal cannula. Pigtail catheter remains in place. No leak demonstrated today. No basilar infiltrates. No evidence of sizable pneumothorax. She remains on ertapenem. Continued on DuoNeb inhalations, Symbicort. Heparin for DVT prophylaxis. White count 7.8. Hemoglobin 10.0. Platelets 307. Sodium 140. Potassium 4.1. Bicarb 30. BUN 18. Creatinine 0.5. Glucose 76. The patient is seen today January 31, 2024 in follow-up on the regular medical floor. She is currently sitting up in bed having breakfast. Awake and alert in no acute distress. Feeling better each day. No worsening shortness of breath, cough or congestion. He is maintaining O2 saturations in the mid 90s on 4 L/min per nasal cannula. She is afebrile. Hemodynamically stable. White count 9.9. Hemoglobin 10.3. Platelets 297. Sodium 140. Potassium 4.4. Bicarb 29. BUN 19. Creatinine 0.5. Glucose 85. She remains on DuoNeb inhalations, Symbicort. Heparin for DVT prophylaxis. She has completed a course of Invanz. The patient is seen today February 01, 2024 in follow-up on the regular medical floor. She is awake and alert in no acute distress. Sitting up in bed. Denies any worsening shortness of breath, cough or congestion. Denies any chest pain or palpitations. She continues to maintain good O2 saturations in the 90s on 3 L/min per nasal cannula. She has been afebrile. Hemodynamically stable. No new labs today. She remains on bronchodilators. Heparin for DVT prophylaxis. Completed antibiotics. Objective - Vital Signs Vital signs: Vital Signs Temp 98.0 F 02/01/24 07:04 Pulse 83 02/01/24 13:06 Resp 17 02/01/24 07:04 BP 136/75 02/01/24 07:04 Pulse Ox 94 L 02/01/24 07:04 FiO2 44 01/24/24 08:03 Intake & Output 01/31/24 02/01/24 02/01/24 18:59 06:59 18:59 Intake Total 100 Balance 100 Weight 48.1 kg 47.5 kg Intake: Oral 100 Other: Voiding Method Bedside Commode Bedside Commode Bedside Commode Diaper Diaper Diaper # Voids 3 3 # Bowel Movements 1 - Exam GENERAL EXAM: Alert, frail, cachectic 74-year-old female, sitting up in bed, on 3 L nasal cannula, in no acute distress. HEAD: Normocephalic. EYES: Normal reaction of pupils, equal size. NOSE: Clear with pink turbinates. THROAT: No erythema or exudates. NECK: No masses, no JVD. CHEST: No chest wall deformity. LUNGS: Equal air entry with basilar crackles. Right-sided pigtail catheter removed. CVS: S1 and S2 normal with no audible murmur, regular rhythm. ABDOMEN: No hepatosplenomegaly, normal bowel sounds, no guarding or rigidity. SPINE: No scoliosis or deformity SKIN: No rashes. There was some subcutaneous emphysema CENTRAL NERVOUS SYSTEM: No focal deficits, tone is normal in all 4 extremities. EXTREMITIES: There is no peripheral edema. No clubbing, no cyanosis. Peripheral pulses are intact. - Labs CBC & Chem 7: 01/31/24 06:56 01/31/24 06:56 Assessment and Plan Assessment: Acute right-sided pneumothorax, initially treated with a Thora vent device, and then a 28 Iraqi chest tube, placed on waterseal 01/21/2024. Removed 01/22/2024. Increasing pneumothorax on 01/24/2024 and pigtail catheter placed with subsequent removal on January 30, 2024. Follow-up chest x-ray post catheter removal January 30, 2024 reveals no sizable pneumothorax Acute hypoxemic respiratory failure secondary to COPD and right pneumothorax ESBL E. coli urinary tract infection. Currently on ertapenem Mental status changes, improved History of traumatic right-sided pneumothorax 2021 History of severe emphysema Ongoing tobacco use with nicotine addiction History of falls History of medication noncompliance Hypertension Poor overall functional performance based on the above-mentioned multiple comorbidities Anorexia/cachexia syndrome Plan: The patient was seen and evaluated Medications reviewed Encourage increased use of the incentive spirometer Continue home oxygen and pulmonary medications Awaiting insurance authorization for [facility] I have personally seen and examined the patient, performed the documentation and the assessment and plan as written. Number of minutes spent on the visit: 10.
--- NOTE | 2024-02-01 19:31 | P.PN ---
Subjective Progress Note Date: 02/01/24 This is a 74-year-old female presented to the emergency department with shortness of breath. Patient was brought to the emergency department by EMS, who reported they found her in significant distress sitting in the tripod position and tachypneic. Initial chest x-ray upon arriving in the emergency department showed the patient had a right-sided pneumothorax, for which she had a right-sided Thora vent placed. Her past medical history is significant for previous traumatic pneumothorax in April 2022, chronic hypoxemic respiratory failure on home oxygen, tobacco dependence and COPD for which she takes fluticasonesalmeterol and DuoNeb. Upon admission to the emergency department her oxygen saturation was 93 on BiPAP and respiratory rate was 30, currently is satting at 96% on 3 L nasal cannula. ABG completed this morning showed pCO2 of 59, pO2 59, HCO3 of 34, ABG O2 saturation of 91.2. She was admitted to the hospital for consult placed to pulmonary services and was moved to the intensive care unit. Patient was placed on air well high flow nasal cannula and ended up having a right thoracostomy tube placed by pulmonary services for reexpansion of the right lung. Patient was found to have evidence of subcutaneous emphysema which have resolved once a thoracostomy tube was placed. Patient was treated for an acute COPD exacerbation with IV Solu-Medrol, Dilators. Patient was also found to have a positive urinary tract infection with culture showing ESBL E. coli. Infectious disease was consulted for management and patient received 10 days of IV ertapenem and has completed this course of therapy one the hospital. Patient had been initially placed on azithromycin and Rocephin for the CP exacerbation. Because it will level shows 0.13. Patient has been able to wean back down to nasal cannula oxygen support and currently atReason oxygen saturations of 94%. She has moved out of the intensive care unit is now monitored on the medical floor. Patient is doing well no chest pain or shortness of breath and nausea vomiting or diarrhea she is awake alert oriented 3 she has been afebrile. Patient has been cleared by pulmonary services as well as infectious disease for discharge. The Pleurx catheter has been removed and follow-up chest x-ray reveals no sizable pneumothorax. Patient will discharge to subacute rehab. 02/01/2024 Patient is evaluated today in follow up on the medical floor. Patient has no chest pain or shortness of breath. Continues on oxygen support 3L nasal cannula. Patient is still pending insurance authorization for discharge to rehab. Pulmonary following. REVIEW OF SYSTEMS: CONSTITUTIONAL: No fever, no malaise. CARDIOVASCULAR: No chest pain, no palpitations, no syncope. PULMONARY: Reports shortness of breath, productive cough GASTROINTESTINAL: No abdominal pain, no nausea, vomiting or diarrhea. GENITOURINARY: No dysuria, urgency or burning NEUROLOGICAL: No headaches, no weakness, PHYSICAL EXAMINATION: GENERAL: Awake and alert, not in any acute distress. Very frail appearing. HEENT: Pupils are round and equally reacting to light. EOMI. No scleral icterus. No conjunctival pallor. Normocephalic, atraumatic. No pharyngeal erythema. No thyromegaly. CARDIOVASCULAR: S1 and S2 present. No murmurs, rubs, or gallops. PULMONARY: Diminished lung sounds on the right. Currently on 4L of oxygen, ThoraVent no longer present, right thoracostomy tube connected to continuous suction. ABDOMEN: Soft, nontender, nondistended, normoactive bowel sounds. No palpable organomegaly. Carvajal present draining clear yellow urine. MUSCULOSKELETAL: No joint swelling or deformity. EXTREMITIES: No cyanosis, or clubbing. Pedal edema present NEUROLOGICAL: Gross neurological examination did not reveal any focal deficits. Alert and oriented, however appears confused. SKIN: Bilateral lower extremity wounds seen Assessment Right sided pneumothorax Acute hypoxemic respiratory failure from the pneumothorax continues on 3-4L hi flow cannula Acute COPD exacerbation Oxygen dependent COPD maintained on 3L of oxygen outpatient Underweight; cachexia Acute urinary tract infection with ESBL E.Coli Hypertension Chronic nicotine use GI prophylaxis DVT prophylaxis:Subcutaneous heparin Full Code Plan Continue to encourage incentive spirometer 10 x an hour while awake Patient has completed course of antibiotics for the ESBL UTI. Continue to wean oxygen as tolerated Pending insurance authorization for discharge to subacute rehab Pulmonary following. The impression and plan of care has been dictated by Nurse Wagner Practitioner as directed. Dr. Gaby MD I have performed a history and physical examination and medical decision making of this patient, discussed the same with the dictator, and agree with the dictators assessment and plan as written, documented as a scribe. Based on total visit time, I have performed more than 50% of this visit. Objective - Vital Signs Vital signs: Vital Signs Temp 98.5 F 02/01/24 13:43 Pulse 62 02/01/24 16:44 Resp 18 02/01/24 13:43 BP 123/66 02/01/24 13:43 Pulse Ox 96 02/01/24 13:43 FiO2 44 01/24/24 08:03 Intake & Output 02/01/24 02/01/24 02/02/24 06:59 18:59 06:59 Weight 47.5 kg Other: Voiding Method Bedside Commode Bedside Commode Diaper Diaper # Voids 3 2 # Bowel Movements 2 - Labs CBC & Chem 7: 01/31/24 06:56 01/31/24 06:56 Assessment and Plan Time with Patient: Less than 30
--- NOTE | 2024-02-02 11:45 | P.PN ---
Subjective Progress Note Date: 02/02/24 Progress note dated January 19, 2024. 74-year-old female who was initially seen in consultation on January 16. She had a follow-up with no yesterday. Yesterday, because of a recurrent and more significant right-sided pneumothorax, a chest tube was placed. A 28 Brazilian chest tube was placed on the right side without difficulty. Currently, she is on Airvo, at 40 L/min with an FiO2 55%. She is getting saline at 75 cc an hour. The chest tube was noted to be in proper position on chest x-ray. There is no leak noted. The chest tube remains on suction. Cardiothoracic surgery is following the patient also. Current laboratory includes a white count 6.7, hemoglobin 11.1, hematocrit 35.7, and a normal platelet count. Sodium 140, potassium 4.5, chlorides 107, CO2 29, BUN 44, creatinine 0.69. Glucose is 123. Calcium 8.7. Urine is showing gram-negative bacilli. It has yet to be identified. The patient continues on Rocephin. Other important medications include Symbicort, and DuoNeb, as well as prednisone 40 mg. Progress note dated January 20, 2024. 74-year-old female seen initially in consultation on January 16. The patient was seen yesterday in the intensive care unit, and then again today in the intensive care unit. She is in room 254. She is doing much better today. She is down to 2 L of oxygen. She is getting saline at 75 cc an hour. Her urine shows gram- negative organisms, and she is currently on Rocephin. She is clinically feeling better. Her chest x-ray is stable. There is no air leak from the right side. Current labs include a white count 9.4, hemoglobin 9.9, hematocrit 32, and platelet count of 280,000. Sodium 141, potassium 3.7, chlorides 110, CO2 30, BUN 29, and creatinine 0.71. Procalcitonin level was 0.13. Urine was positive for Escherichia coli. It is an ESBL E. coli, and she will need to be switched to ertapenem. Chest x-ray stable. The patient is seen today January 21, 2024 in follow-up on the regular medical floor. She is currently sitting up in bed. Awake and alert in no acute distress. She is requiring 5 L/min per nasal cannula to maintain O2 saturations in the 90s. No IV fluids. Chest x-ray no sizable pneumothorax. Right-sided chest tube remains in place. Currently off suction and placed to waterseal. Basilar infiltrates persist right greater than left. Urine culture was positive for E. coli. White count 10.2. Hemoglobin 10.5. Platelets 289. Sodium 139. Potassium 3.5. Bicarb 28. BUN 15. Creatinine 0.5. Glucose 103. He is continued on DuoNeb ventilations, Symbicort. Antibiotics in the form of ertapenem. Heparin for DVT prophylaxis. The patient is seen today January 22, 2024 in follow-up on the regular medical floor. She is resting comfortably in bed. Awake and alert in no acute distress. She is maintaining O2 saturations in the 90s on 4 L/min per nasal cannula. Normal saline at KVO. Her chest tube was clamped this morning. Chest x-ray reveals right-sided chest tube in unchanged position. Sizable pneumot horax not evident. Patchy basilar infiltrates persist. Stable chest. Improving subcutaneous emphysema. Urine culture was positive for ESBL E. coli. WBC 7.9. Hemoglobin 11.5. Platelets 338. Sodium 134. Potassium 3.7. Bicarb 31. BUN 16. Creatinine 0.61. Glucose 109. She remains on DuoNeb inhalations, Symbicort. Antibiotics in the form of ertapenem. The patient is seen today January 23, 2024 in follow-up on the regular medical floor. She is sitting up in bed. Awake and alert in no acute distress. She is maintaining good O2 saturations in the 90s on 4 L/min per nasal cannula. Her chest tube was removed yesterday. Today's chest x-ray reveals a small 20 to 25% right apical pneumothorax. She denies any worsening shortness of breath, cough or congestion. She is working with the incentive spirometer. She is continued on DuoNeb inhalations, Symbicort. Urine culture positive for ESBL E. coli. Remains on antibiotics in the form of ertapenem. Heparin for DVT prophylaxis. No new labs today. The patient is seen today January 24, 2024 in follow-up on the regular medical floor. She is currently resting in bed. Awake and alert in no acute distress. She is requiring 7 L high flow nasal cannula to maintain O2 saturations in the 90s. She has normal staying at KVO. She denies any worsening shortness of breath, cough or congestion. Unfortunately her chest x-ray shows slight progression of the right-sided pneumothorax estimated at 25% and increased laterally. Persistent right upper lobe infiltrate. Improving subcutaneous air. The plan now is for a pigtail catheter insertion per interventional radiology. Urine culture was positive for ESBL E. coli. She remains on ertapenem. Continued on DuoNeb inhalations, Symbicort. Heparin for DVT prophylaxis. The patient is seen today January 25, 2024 in follow-up on the regular medical floor. She is currently resting comfortably in bed. Awake and alert in no acute distress. Maintaining O2 saturations in the 90s on 4 L/min per nasal cannula. She did have a pigtail catheter placed yesterday. This is to Pleur- evac. There is a positive leak. Chest x-ray continues to show a pneumothorax on the right. She remains on DuoNeb ventilations, Symbicort. Heparin for DVT prophylaxis. Remains on Invanz. Urine culture was positive for E. coli, ESBL. No new labs today. The patient is seen today January 26, 2024 in follow-up on the regular medical floor. He is sitting up in bed. Awake and alert in no acute distress. Having some chest wall discomfort from the pigtail catheter insertion site. She is maintaining O2 saturations in the upper 90s on 3-1/2 L/min per nasal cannula. Pigtail catheter does remain in place to Pleur-evac. Still with a small leak. She needs increased encouragement regarding the use of the incentive spirometer. She remains on DuoNeb inhalations, Symbicort. Heparin for DVT prophylaxis. Continued on ertapenem for ESBL E. coli urinary tract infection. Chest x-ray showing a tiny right lung base hydropneumothorax, stable. There is continued reduction in the loculated pneumothorax compared to previous. No new labs today. The patient is seen today January 27, 2024 in follow-up on the regular medical floor. She is awake and alert in no acute distress. She is maintaining O2 saturations in the 90s on 1 L/min per nasal cannula. Right-sided pigtail catheter remains in place to Pleur-evac and wall suction. Continues with a positive leak. Minimal pneumothorax on chest x-ray. Less subcutaneous emphysema. She remains on bronchodilators. Heparin for DVT prophylaxis. To biotics in the form of ertapenem for her ESBL E. coli urinary tract infection. The patient is seen today January 28, 2024 in follow-up on the regular medical floor. She is sitting up in bed. Awake and alert in no acute distress. Right- sided pigtail catheter remains in place. No airleak noted presently. Chest x- ray continues to show no sizable pneumothorax. Patchy persistent infiltrate of the right lower lobe and small effusion. Urine culture positive for ESBL E. coli. 8.3. Hemoglobin 10.2. Platelets 306. Sodium 140. Potassium 4.2. Bicarb 32. BUN 19. Creatinine 0.6. Glucose 81. She remains on ertapenem. Continued on DuoNeb inhalations, Symbicort. Heparin for DVT prophylaxis. The patient is seen today January 29, 2024 in follow-up on the regular medical floor. She is currently up in a chair, awake and alert in no acute distress. She is maintaining O2 saturations in the 90s on 2 L/min per nasal cannula. Pigtail catheter remains in place. No leak demonstrated today. No basilar infiltrates. No evidence of sizable pneumothorax. She remains on ertapenem. Continued on DuoNeb inhalations, Symbicort. Heparin for DVT prophylaxis. White count 7.8. Hemoglobin 10.0. Platelets 307. Sodium 140. Potassium 4.1. Bicarb 30. BUN 18. Creatinine 0.5. Glucose 76. The patient is seen today January 31, 2024 in follow-up on the regular medical floor. She is currently sitting up in bed having breakfast. Awake and alert in no acute distress. Feeling better each day. No worsening shortness of breath, cough or congestion. He is maintaining O2 saturations in the mid 90s on 4 L/min per nasal cannula. She is afebrile. Hemodynamically stable. White count 9.9. Hemoglobin 10.3. Platelets 297. Sodium 140. Potassium 4.4. Bicarb 29. BUN 19. Creatinine 0.5. Glucose 85. She remains on DuoNeb inhalations, Symbicort. Heparin for DVT prophylaxis. She has completed a course of Invanz. The patient is seen today February 01, 2024 in follow-up on the regular medical floor. She is awake and alert in no acute distress. Sitting up in bed. Denies any worsening shortness of breath, cough or congestion. Denies any chest pain or palpitations. She continues to maintain good O2 saturations in the 90s on 3 L/min per nasal cannula. She has been afebrile. Hemodynamically stable. No new labs today. She remains on bronchodilators. Heparin for DVT prophylaxis. Completed antibiotics. The patient is seen today February 02, 2024 in follow-up on the regular medical floor. She is sitting up in bed. Awake and alert in no acute distress. Maintaining good O2 saturations in the 90s on per minute per nasal cannula. She is afebrile. Hemodynamically stable. No new labs today. She remains on DuoNeb inhalations, Symbicort. Heparin for DVT prophylaxis. Objective - Vital Signs Vital signs: Vital Signs Temp 98.7 F 02/02/24 07:11 Pulse 86 02/02/24 11:39 Resp 22 02/02/24 07:11 BP 158/75 02/02/24 07:11 Pulse Ox 94 L 02/02/24 08:48 FiO2 44 01/24/24 08:03 Intake & Output 02/01/24 02/02/24 02/02/24 18:59 06:59 18:59 Weight 47.5 kg Other: Voiding Method Bedside Commode Bedside Commode Diaper Diaper # Voids 2 1 # Bowel Movements 2 - Exam GENERAL EXAM: Alert, cachectic 74-year-old female, on 2 L nasal cannula, in no acute distress. HEAD: Normocephalic. EYES: Normal reaction of pupils, equal size. NOSE: Clear with pink turbinates. THROAT: No erythema or exudates. NECK: No masses, no JVD. CHEST: No chest wall deformity. LUNGS: Equal air entry with basilar crackles. Right-sided pigtail catheter removed. CVS: S1 and S2 normal with no audible murmur, regular rhythm. ABDOMEN: No hepatosplenomegaly, normal bowel sounds, no guarding or rigidity. SPINE: No scoliosis or deformity SKIN: No rashes. There was some subcutaneous emphysema CENTRAL NERVOUS SYSTEM: No focal deficits, tone is normal in all 4 extremities. EXTREMITIES: There is no peripheral edema. No clubbing, no cyanosis. Peripheral pulses are intact. - Labs CBC & Chem 7: 01/31/24 06:56 01/31/24 06:56 Assessment and Plan Assessment: Acute right-sided pneumothorax, initially treated with a Thora vent device, and then a 28 Brazilian chest tube, placed on waterseal 01/21/2024. Removed 01/22/2024. Increasing pneumothorax on 01/24/2024 and pigtail catheter placed with subsequent removal on January 30, 2024. Follow-up chest x-ray post catheter removal January 30, 2024 reveals no sizable pneumothorax Acute hypoxemic respiratory failure secondary to COPD and right pneumothorax ESBL E. coli urinary tract infection. Completed a course of ertapenem Mental status changes, improved History of traumatic right-sided pneumothorax 2021 History of severe emphysema Ongoing tobacco use with nicotine addiction History of falls History of medication noncompliance Hypertension Poor overall functional performance based on the above-mentioned multiple william rbidities Anorexia/cachexia syndrome Plan: The patient was seen and evaluated Medications reviewed Continue the incentive spirometer Continue oxygen and pulmonary medications Completed antibiotics Awaiting insurance authorization for [facility] I have personally seen and examined the patient, performed the documentation and the assessment and plan as written. Number of minutes spent on the visit: 10.
--- NOTE | 2024-02-02 15:17 | P.PN ---
Subjective Progress Note Date: 02/01/24 Principal diagnosis: Reason for follow-up is ESBL E. coli urinary tract infection Patient is a 74-year-old female with a past medical history significant for COPD hypertension anxiety depression current everyday smoker, patient presenting to the hospital with increasing shortness of breath has been diagnosed with a pneumothorax status post right-sided chest tube also have a positive UA with urine culture positive for ESBL prompted this consultation. On today's evaluation that is 02/01/2024,the patient denies any fever or any chills, patient is breathing comfortably on 3 L nasal cannula oxygen, the patient denies chest pain shortness of breath and no worsening cough, patient denies abdominal pain, no nausea vomiting or diarrhea. No new labs has been obtained today Objective - Vital Signs Vital signs: Vital Signs Temp 98.5 F 02/01/24 13:43 Pulse 62 02/01/24 16:44 Resp 18 02/01/24 13:43 BP 123/66 02/01/24 13:43 Pulse Ox 96 02/01/24 13:43 FiO2 44 01/24/24 08:03 Intake & Output 01/31/24 02/01/24 02/01/24 18:59 06:59 18:59 Intake Total 100 Balance 100 Weight 48.1 kg 47.5 kg Intake: Oral 100 Other: Voiding Method Bedside Commode Bedside Commode Bedside Commode Diaper Diaper Diaper # Voids 3 3 3 # Bowel Movements 1 2 - Exam GENERAL DESCRIPTION: An elderly female lying in bed in no distress RESPIRATORY SYSTEM: Unlabored breathing , decreased breath sounds at bases HEART: S1 S2 regular rate and rhythm , ABDOMEN: Soft , no tenderness EXTREMITIES: No edema feet - Labs CBC & Chem 7: 01/31/24 06:56 01/31/24 06:56 Assessment and Plan (1) Infection due to ESBL-producing Escherichia coli Current Visit: Yes Status: Acute Code(s): A49.8 - OTHER BACTERIAL INFECTIONS OF UNSPECIFIED SITE; Z16.12 - EXTENDED SPECTRUM BETA LACTAMASE (ESBL) RESISTANCE SNOMED Code(s): 787482045 (2) UTI (urinary tract infection) Current Visit: No Status: Acute Code(s): N39.0 - URINARY TRACT INFECTION, SITE NOT SPECIFIED SNOMED Code(s): 97187306 Plan: 1patient with initial presentation to the hospital for increasing shortness of breath patient did have a significantly positive UA from urinary symptoms concerning for symptomatic urinary tract infection 2-patient has been afebrile and white count has been normal, 3patient has received adequate antibiotic therapy for underlying infection, patient is currently being monitored closely off antibiotics Dictation was produced using appCREAR dictation software. please excuse any grammatical, word or spelling errors. Time with Patient: Less than 30
--- NOTE | 2024-02-02 15:18 | P.PN ---
Subjective Progress Note Date: 02/02/24 Principal diagnosis: Reason for follow-up is ESBL E. coli urinary tract infection Patient is a 74-year-old female with a past medical history significant for COPD hypertension anxiety depression current everyday smoker, patient presenting to the hospital with increasing shortness of breath has been diagnosed with a pneumothorax status post right-sided chest tube also have a positive UA with urine culture positive for ESBL prompted this consultation. On today's evaluation that is 02/02/2024,the patient remains to be afebrile, patient is on 2 L nasal cannula supplemental oxygen and denies any shortness of breath no chest pain or any worsening cough.Patient denies having any nausea or vomiting, no abdominal pain and no diarrhea has been reported. No new lab has been obtained today Objective - Vital Signs Vital signs: Vital Signs Temp 98.7 F 02/02/24 07:11 Pulse 86 02/02/24 11:39 Resp 22 02/02/24 07:11 BP 158/75 02/02/24 07:11 Pulse Ox 94 L 02/02/24 08:48 FiO2 44 01/24/24 08:03 Intake & Output 02/01/24 02/02/24 02/02/24 18:59 06:59 18:59 Weight 47.5 kg Other: Voiding Method Bedside Commode Bedside Commode Diaper Diaper # Voids 2 1 # Bowel Movements 2 - Exam GENERAL DESCRIPTION: An elderly female lying in bed in no distress RESPIRATORY SYSTEM: Unlabored breathing , decreased breath sounds at bases HEART: S1 S2 regular rate and rhythm , ABDOMEN: Soft , no tenderness EXTREMITIES: No edema feet - Labs CBC & Chem 7: 01/31/24 06:56 01/31/24 06:56 Assessment and Plan (1) Infection due to ESBL-producing Escherichia coli Current Visit: Yes Status: Acute Code(s): A49.8 - OTHER BACTERIAL INFECTIONS OF UNSPECIFIED SITE; Z16.12 - EXTENDED SPECTRUM BETA LACTAMASE (ESBL) RESISTANCE SNOMED Code(s): 801548233 (2) UTI (urinary tract infection) Current Visit: No Status: Acute Code(s): N39.0 - URINARY TRACT INFECTION, SITE NOT SPECIFIED SNOMED Code(s): 94830008 Plan: 1patient with initial presentation to the hospital for increasing shortness of breath patient did have a significantly positive UA from urinary symptoms concerning for symptomatic urinary tract infection 2-patient has been afebrile and white count has been normal, 3patient remains to be afebrile and seems to be doing well off antibiotic repeat will monitor closely Dictation was produced using eo[employer]i dictation software. please excuse any grammatical, word or spelling errors. Time with Patient: Less than 30
--- NOTE | 2024-02-02 15:55 | XR ---
EXAMINATION TYPE: XR chest 2V DATE OF EXAM: 02/02/2024 COMPARISON: 01/30/2024 HISTORY: 74-year-old female with chest pain TECHNIQUE: AP and lateral views FINDINGS: Heart normal size. The aortic arch calcifications. Hyperinflation. Diffuse interstitial opacity. Patc hy bibasilar opacity and bilateral small pleural effusions are noted. IMPRESSION: COPD with interstitial opacities, patchy bibasilar opacities, and small pleural effusions. Correlate for CHF with mild interstitial pulmonary edema. Underlying infiltrate/pneumonia should be excluded on a clinical basis.
--- NOTE | 2024-02-02 19:47 | P.PN ---
Subjective Progress Note Date: 02/02/24 This is a 74-year-old female presented to the emergency department with shortness of breath. Patient was brought to the emergency department by EMS, who reported they found her in significant distress sitting in the tripod position and tachypneic. Initial chest x-ray upon arriving in the emergency department showed the patient had a right-sided pneumothorax, for which she had a right-sided Thora vent placed. Her past medical history is significant for previous traumatic pneumothorax in April 2022, chronic hypoxemic respiratory failure on home oxygen, tobacco dependence and COPD for which she takes fluticasonesalmeterol and DuoNeb. Upon admission to the emergency department her oxygen saturation was 93 on BiPAP and respiratory rate was 30, currently is satting at 96% on 3 L nasal cannula. ABG completed this morning showed pCO2 of 59, pO2 59, HCO3 of 34, ABG O2 saturation of 91.2. She was admitted to the hospital for consult placed to pulmonary services and was moved to the intensive care unit. Patient was placed on air well high flow nasal cannula and ended up having a right thoracostomy tube placed by pulmonary services for reexpansion of the right lung. Patient was found to have evidence of subcutaneous emphysema which have resolved once a thoracostomy tube was placed. Patient was treated for an acute COPD exacerbation with IV Solu-Medrol, Dilators. Patient was also found to have a positive urinary tract infection with culture showing ESBL E. coli. Infectious disease was consulted for management and patient received 10 days of IV ertapenem and has completed this course of therapy one the hospital. Patient had been initially placed on azithromycin and Rocephin for the CP exacerbation. Because it will level shows 0.13. Patient has been able to wean back down to nasal cannula oxygen support and currently atReason oxygen saturations of 94%. She has moved out of the intensive care unit is now monitored on the medical floor. Patient is doing well no chest pain or shortness of breath and nausea vomiting or diarrhea she is awake alert oriented 3 she has been afebrile. Patient has been cleared by pulmonary services as well as infectious disease for discharge. The Pleurx catheter has been removed and follow-up chest x-ray reveals no sizable pneumothorax. Patient will discharge to subacute rehab. 02/01/2024 Patient is evaluated today in follow up on the medical floor. Patient has no chest pain or shortness of breath. Continues on oxygen support 3L nasal cannula. Patient is still pending insurance authorization for discharge to rehab. Pulmonary following. 02/02/2024 Patient resting in bed today. Had an episode of shortness of breath and chest d iscomfort. EKG was done no evidence for ischemia. Chest xray reveals COPD with interstitial opacities patchy bibasilar opacities and small pleural effusions, correlate for CHF with mild interstitial pulmonary edema. Underlying infiltrate/pneumonia should be excluded on a clinical basis. Having low grade temp 99.7. REVIEW OF SYSTEMS: CONSTITUTIONAL: No fever, no malaise. CARDIOVASCULAR: No chest pain, no palpitations, no syncope. PULMONARY: Reports shortness of breath, productive cough GASTROINTESTINAL: No abdominal pain, no nausea, vomiting or diarrhea. GENITOURINARY: No dysuria, urgency or burning NEUROLOGICAL: No headaches, no weakness, PHYSICAL EXAMINATION: GENERAL: Awake and alert oriented x 3. not in any acute distress. Very frail appearing. HEENT: Pupils are round and equally reacting to light. EOMI. No scleral icterus. No conjunctival pallor. Normocephalic, atraumatic. No pharyngeal erythema. No thyromegaly. CARDIOVASCULAR: S1 and S2 present. No murmurs, rubs, or gallops. PULMONARY: Diminished lung sounds on the right. Currently on 3L of oxygen. ABDOMEN: Soft, nontender, nondistended, normoactive bowel sounds. No palpable organomegaly. Carvajal present draining clear yellow urine. MUSCULOSKELETAL: No joint swelling or deformity. EXTREMITIES: No cyanosis, or clubbing. Pedal edema present NEUROLOGICAL: Gross neurological examination did not reveal any focal deficits. Alert and oriented, fatigued. SKIN: Bilateral lower extremity wounds seen Assessment Right sided pneumothorax Acute hypoxemic respiratory failure from the pneumothorax continues on 3-4L hi flow cannula Acute COPD exacerbation Oxygen dependent COPD maintained on 3L of oxygen outpatient Acute on chronic diastolic dysfunction Moderate pulmonary hypertension Oral thrush Underweight; cachexia Acute urinary tract infection with ESBL E.Coli Hypertension Chronic nicotine use GI prophylaxis DVT prophylaxis:Subcutaneous heparin Full Code Plan Continue to encourage incentive spirometer 10 x an hour while awake Patient has completed course of antibiotics for the ESBL UTI. Thoravent and thoracostomy tube have been removed Continue to wean oxygen as tolerated Patient having worsening shortness of breath and chest xray suggesting CHF patient will be given a one time dose IV lasix Pending insurance authorization for discharge to subacute rehab Continues on nystatin swish and swallow Pulmonary following. Repeat BMP/CBC in the AM The impression and plan of care has been dictated by Celestina Mary, Nurse Practitioner as directed. Dr. Gaby MD I have performed a history and physical examination and medical decision making of this patient, discussed the same with the dictator, and agree with the dictators assessment and plan as written, documented as a scribe. Based on total visit time, I have performed more than 50% of this visit. Objective - Vital Signs Vital signs: Vital Signs Temp 99.2 F 02/02/24 15:24 Pulse 91 02/02/24 15:29 Resp 18 02/02/24 15:24 BP 101/59 02/02/24 15:24 Pulse Ox 96 02/02/24 15:24 FiO2 44 01/24/24 08:03 Intake & Output 02/01/24 02/02/24 02/02/24 18:59 06:59 18:59 Weight 47.5 kg Other: Voiding Method Bedside Commode Bedside Commode Bedside Commode Diaper Diaper Diaper # Voids 2 1 # Bowel Movements 2 - Labs CBC & Chem 7: 01/31/24 06:56 01/31/24 06:56 Assessment and Plan Time with Patient: Less than 30
[2024-02-02] MEDS: FUROSEMIDE 10 MG/ML 2 ML VIAL IV ONE (20:31)
--- NOTE | 2024-02-03 09:33 | P.PN ---
Subjective Progress Note Date: 02/03/24 Progress note dated January 19, 2024. 74-year-old female who was initially seen in consultation on January 16. She had a follow-up with no yesterday. Yesterday, because of a recurrent and more significant right-sided pneumothorax, a chest tube was placed. A 28 Palestinian chest tube was placed on the right side without difficulty. Currently, she is on Airvo, at 40 L/min with an FiO2 55%. She is getting saline at 75 cc an hour. The chest tube was noted to be in proper position on chest x-ray. There is no leak noted. The chest tube remains on suction. Cardiothoracic surgery is following the patient also. Current laboratory includes a white count 6.7, hemoglobin 11.1, hematocrit 35.7, and a normal platelet count. Sodium 140, potassium 4.5, chlorides 107, CO2 29, BUN 44, creatinine 0.69. Glucose is 123. Calcium 8.7. Urine is showing gram-negative bacilli. It has yet to be identified. The patient continues on Rocephin. Other important medications include Symbicort, and DuoNeb, as well as prednisone 40 mg. Progress note dated January 20, 2024. 74-year-old female seen initially in consultation on January 16. The patient was seen yesterday in the intensive care unit, and then again today in the intensive care unit. She is in room 254. She is doing much better today. She is down to 2 L of oxygen. She is getting saline at 75 cc an hour. Her urine shows gram- negative organisms, and she is currently on Rocephin. She is clinically feeling better. Her chest x-ray is stable. There is no air leak from the right side. Current labs include a white count 9.4, hemoglobin 9.9, hematocrit 32, and platelet count of 280,000. Sodium 141, potassium 3.7, chlorides 110, CO2 30, BUN 29, and creatinine 0.71. Procalcitonin level was 0.13. Urine was positive for Escherichia coli. It is an ESBL E. coli, and she will need to be switched to ertapenem. Chest x-ray stable. The patient is seen today January 21, 2024 in follow-up on the regular medical floor. She is currently sitting up in bed. Awake and alert in no acute distress. She is requiring 5 L/min per nasal cannula to maintain O2 saturations in the 90s. No IV fluids. Chest x-ray no sizable pneumothorax. Right-sided chest tube remains in place. Currently off suction and placed to waterseal. Basilar infiltrates persist right greater than left. Urine culture was positive for E. coli. White count 10.2. Hemoglobin 10.5. Platelets 289. Sodium 139. Potassium 3.5. Bicarb 28. BUN 15. Creatinine 0.5. Glucose 103. He is continued on DuoNeb ventilations, Symbicort. Antibiotics in the form of ertapenem. Heparin for DVT prophylaxis. The patient is seen today January 22, 2024 in follow-up on the regular medical floor. She is resting comfortably in bed. Awake and alert in no acute distress. She is maintaining O2 saturations in the 90s on 4 L/min per nasal cannula. Normal saline at KVO. Her chest tube was clamped this morning. Chest x-ray reveals right-sided chest tube in unchanged position. Sizable pneumot horax not evident. Patchy basilar infiltrates persist. Stable chest. Improving subcutaneous emphysema. Urine culture was positive for ESBL E. coli. WBC 7.9. Hemoglobin 11.5. Platelets 338. Sodium 134. Potassium 3.7. Bicarb 31. BUN 16. Creatinine 0.61. Glucose 109. She remains on DuoNeb inhalations, Symbicort. Antibiotics in the form of ertapenem. The patient is seen today January 23, 2024 in follow-up on the regular medical floor. She is sitting up in bed. Awake and alert in no acute distress. She is maintaining good O2 saturations in the 90s on 4 L/min per nasal cannula. Her chest tube was removed yesterday. Today's chest x-ray reveals a small 20 to 25% right apical pneumothorax. She denies any worsening shortness of breath, cough or congestion. She is working with the incentive spirometer. She is continued on DuoNeb inhalations, Symbicort. Urine culture positive for ESBL E. coli. Remains on antibiotics in the form of ertapenem. Heparin for DVT prophylaxis. No new labs today. The patient is seen today January 24, 2024 in follow-up on the regular medical floor. She is currently resting in bed. Awake and alert in no acute distress. She is requiring 7 L high flow nasal cannula to maintain O2 saturations in the 90s. She has normal staying at KVO. She denies any worsening shortness of breath, cough or congestion. Unfortunately her chest x-ray shows slight progression of the right-sided pneumothorax estimated at 25% and increased laterally. Persistent right upper lobe infiltrate. Improving subcutaneous air. The plan now is for a pigtail catheter insertion per interventional radiology. Urine culture was positive for ESBL E. coli. She remains on ertapenem. Continued on DuoNeb inhalations, Symbicort. Heparin for DVT prophylaxis. The patient is seen today January 25, 2024 in follow-up on the regular medical floor. She is currently resting comfortably in bed. Awake and alert in no acute distress. Maintaining O2 saturations in the 90s on 4 L/min per nasal cannula. She did have a pigtail catheter placed yesterday. This is to Pleur- evac. There is a positive leak. Chest x-ray continues to show a pneumothorax on the right. She remains on DuoNeb ventilations, Symbicort. Heparin for DVT prophylaxis. Remains on Invanz. Urine culture was positive for E. coli, ESBL. No new labs today. The patient is seen today January 26, 2024 in follow-up on the regular medical floor. He is sitting up in bed. Awake and alert in no acute distress. Having some chest wall discomfort from the pigtail catheter insertion site. She is maintaining O2 saturations in the upper 90s on 3-1/2 L/min per nasal cannula. Pigtail catheter does remain in place to Pleur-evac. Still with a small leak. She needs increased encouragement regarding the use of the incentive spirometer. She remains on DuoNeb inhalations, Symbicort. Heparin for DVT prophylaxis. Continued on ertapenem for ESBL E. coli urinary tract infection. Chest x-ray showing a tiny right lung base hydropneumothorax, stable. There is continued reduction in the loculated pneumothorax compared to previous. No new labs today. The patient is seen today January 27, 2024 in follow-up on the regular medical floor. She is awake and alert in no acute distress. She is maintaining O2 saturations in the 90s on 1 L/min per nasal cannula. Right-sided pigtail catheter remains in place to Pleur-evac and wall suction. Continues with a positive leak. Minimal pneumothorax on chest x-ray. Less subcutaneous emphysema. She remains on bronchodilators. Heparin for DVT prophylaxis. To biotics in the form of ertapenem for her ESBL E. coli urinary tract infection. The patient is seen today January 28, 2024 in follow-up on the regular medical floor. She is sitting up in bed. Awake and alert in no acute distress. Right- sided pigtail catheter remains in place. No airleak noted presently. Chest x- ray continues to show no sizable pneumothorax. Patchy persistent infiltrate of the right lower lobe and small effusion. Urine culture positive for ESBL E. coli. 8.3. Hemoglobin 10.2. Platelets 306. Sodium 140. Potassium 4.2. Bicarb 32. BUN 19. Creatinine 0.6. Glucose 81. She remains on ertapenem. Continued on DuoNeb inhalations, Symbicort. Heparin for DVT prophylaxis. The patient is seen today January 29, 2024 in follow-up on the regular medical floor. She is currently up in a chair, awake and alert in no acute distress. She is maintaining O2 saturations in the 90s on 2 L/min per nasal cannula. Pigtail catheter remains in place. No leak demonstrated today. No basilar infiltrates. No evidence of sizable pneumothorax. She remains on ertapenem. Continued on DuoNeb inhalations, Symbicort. Heparin for DVT prophylaxis. White count 7.8. Hemoglobin 10.0. Platelets 307. Sodium 140. Potassium 4.1. Bicarb 30. BUN 18. Creatinine 0.5. Glucose 76. The patient is seen today January 31, 2024 in follow-up on the regular medical floor. She is currently sitting up in bed having breakfast. Awake and alert in no acute distress. Feeling better each day. No worsening shortness of breath, cough or congestion. He is maintaining O2 saturations in the mid 90s on 4 L/min per nasal cannula. She is afebrile. Hemodynamically stable. White count 9.9. Hemoglobin 10.3. Platelets 297. Sodium 140. Potassium 4.4. Bicarb 29. BUN 19. Creatinine 0.5. Glucose 85. She remains on DuoNeb inhalations, Symbicort. Heparin for DVT prophylaxis. She has completed a course of Invanz. The patient is seen today February 01, 2024 in follow-up on the regular medical floor. She is awake and alert in no acute distress. Sitting up in bed. Denies any worsening shortness of breath, cough or congestion. Denies any chest pain or palpitations. She continues to maintain good O2 saturations in the 90s on 3 L/min per nasal cannula. She has been afebrile. Hemodynamically stable. No new labs today. She remains on bronchodilators. Heparin for DVT prophylaxis. Completed antibiotics. The patient is seen today February 02, 2024 in follow-up on the regular medical floor. She is sitting up in bed. Awake and alert in no acute distress. Maintaining good O2 saturations in the 90s on per minute per nasal cannula. She is afebrile. Hemodynamically stable. No new labs today. She remains on DuoNeb inhalations, Symbicort. Heparin for DVT prophylaxis. The patient is seen today February 03, 2024 in follow-up on the regular medical floor. She is awake and alert in no acute distress. Sitting up in bed. Denies any worsening shortness of breath, cough or congestion. Maintaining O2 saturations in the 90s on 3 L/min per nasal cannula. Chest x-ray reveals evidence of COPD with interstitial opacities and patchy bibasilar opacities with small effusions. Some increased atelectasis of the right lung base. No new labs today. She remains on DuoNeb ventilations, Symbicort. Heparin for DVT prophylaxis. Objective - Vital Signs Vital signs: Vital Signs Temp 98.4 F 02/03/24 07:39 Pulse 80 02/03/24 09:02 Resp 22 02/03/24 07:39 BP 125/73 02/03/24 07:39 Pulse Ox 90 L 02/03/24 08:52 FiO2 44 01/24/24 08:03 Intake & Output 02/02/24 02/03/24 02/03/24 18:59 06:59 18:59 Weight 44.5 kg Other: Voiding Method Bedside Commode Bedside Commode Diaper Diaper # Voids 3 # Bowel Movements 1 - Exam GENERAL EXAM: Alert, cachectic, pleasant 74-year-old female, sitting up in bed, on 3 L nasal cannula, in no acute distress. HEAD: Normocephalic. EYES: Normal reaction of pupils, equal size. NOSE: Clear with pink turbinates. THROAT: No erythema or exudates. NECK: No masses, no JVD. CHEST: No chest wall deformity. LUNGS: Equal air entry with basilar crackles. Right-sided pigtail catheter removed. CVS: S1 and S2 normal with no audible murmur, regular rhythm. ABDOMEN: No hepatosplenomegaly, normal bowel sounds, no guarding or rigidity. SPINE: No scoliosis or deformity SKIN: No rashes. There was some subcutaneous emphysema CENTRAL NERVOUS SYSTEM: No focal deficits, tone is normal in all 4 extremities. EXTREMITIES: There is no peripheral edema. No clubbing, no cyanosis. Peripheral pulses are intact. - Labs CBC & Chem 7: 01/31/24 06:56 01/31/24 06:56 Assessment and Plan Assessment: Acute right-sided pneumothorax, initially treated with a Thora vent device, and then a 28 Palestinian chest tube, placed on waterseal 01/21/2024. Removed 01/22/2024. Increasing pneumothorax on 01/24/2024 and pigtail catheter placed with subsequent removal on January 30, 2024. Follow-up chest x-ray post catheter removal January 30, 2024 reveals no sizable pneumothorax Acute hypoxemic respiratory failure secondary to COPD and right pneumothorax ESBL E. coli urinary tract infection. Completed a course of ertapenem Mental status changes, improved History of traumatic right-sided pneumothorax 2021 History of severe emphysema Ongoing tobacco use with nicotine addiction History of falls History of medication noncompliance Hypertension Poor overall functional performance based on the above-mentioned multiple comorbidities Anorexia/cachexia syndrome Plan: The patient was seen and evaluated Chest x-ray and medications reviewed Encouraged the increased use of the incentive spirometer Continue DuoNeb inhalations, Symbicort Heparin for DVT prophylaxis Titrate the FiO2 as tolerated Awaiting insurance authorization for [facility] This patient was seen independently by the pulmonary nurse practitioner addressing pulmonary issues I have personally seen and examined the patient, performed the documentation and the assessment and plan as written. Number of minutes spent on the visit: 23.
[2024-02-03 09:36] LABS: Basophils # (A) 0.07 X 10*3/uL (0.00-0.10); Basophils % (A) 0.8 %; Eosinophils # (A) 0.12 X 10*3/uL (0.04-0.35); Eosinophils % (A) 1.3 %; HCT 32.8 % (37.2-46.3); HGB 10.1 g/dL (12.0-15.0); Lymphocytes # (A) 1.31 X 10*3/uL (0.90-5.00); Lymphocytes % (A) 14.5 %; MCH 28.5 pg (27.0-32.0); MCHC 30.8 g/dL (32.0-37.0); MCV 92.4 FL (80.0-97.0); Mean Platelet Volume 10.4 FL (9.5-12.2); Monocytes % (A) 5.5 %; NRBC Per 100 WBC 0 X 10*3/uL (0.00-0.01); Neutrophils # (A) 6.98 X 10*3/uL (1.80-7.70); Platelet Count 278 X 10*3/uL (140-440); RBC 3.55 X 10*6/uL (4.10-5.20); RDW 16.7 % (11.5-14.5); WBC 9.06 X 10*3/uL (4.50-10.00)
[2024-02-03 09:38] LABS: BUN/Creat Ratio 36.83 Ratio (12.00-20.00); Blood Urea Nitrogen 22.1 mg/dL (9.0-27.0); Calcium 8.9 mg/dL (8.7-10.3); Carbon Dioxide 27.6 mmol/L (21.6-31.8); Chloride 103 mmol/L (96-109); Glucose 82 mg/dL (70-110); Potassium 4.1 mmol/L (3.5-5.5); Sodium 141 mmol/L (135-145)
[2024-02-03 14:42] VITALS: RESP 20
--- NOTE | 2024-02-03 15:44 | P.PN ---
Subjective Progress Note Date: 02/03/24 Principal diagnosis: Reason for follow-up is ESBL E. coli urinary tract infection Patient is a 74-year-old female with a past medical history significant for COPD hypertension anxiety depression current everyday smoker, patient presenting to the hospital with increasing shortness of breath has been diagnosed with a pneumothorax status post right-sided chest tube also have a positive UA with urine culture positive for ESBL prompted this consultation. On today's evaluation that is 02/03/2024, the patient continues to be afebrile, the patient is on 2 L nasal oxygen and breathing comfortably, the Pt denies having any chest pain or cough, the patient denies having any abdominal pain no vomiting or any diarrhea has been reported by the nursing staff Patient white count is 9.06, creatinine 0.6 blood gas was 0.03 Objective - Vital Signs Vital signs: Vital Signs Temp 98.6 F 02/03/24 14:27 Pulse 88 02/03/24 14:27 Resp 20 02/03/24 14:27 BP 104/66 02/03/24 14:27 Pulse Ox 92 L 02/03/24 14:27 FiO2 44 01/24/24 08:03 Intake & Output 02/02/24 02/03/24 02/03/24 18:59 06:59 18:59 Weight 44.5 kg Other: Voiding Method Bedside Commode Bedside Commode Bedside Commode Diaper Diaper Diaper # Voids 3 # Bowel Movements 1 - Exam GENERAL DESCRIPTION: An elderly female lying in bed in no distress RESPIRATORY SYSTEM: Unlabored breathing , decreased breath sounds at bases HEART: S1 S2 regular rate and rhythm , ABDOMEN: Soft , no tenderness EXTREMITIES: No edema feet - Labs CBC & Chem 7: 02/03/24 06:34 02/03/24 06:31 Labs: Abnormal Lab Results - Last 24 Hours (Table) 02/03/24 02/03/24 Range/Units 06:31 06:34 RBC 3.55 L (4.10-5.20) X 10*6/uL Hgb 10.1 L (12.0-15.0) g/dL Hct 32.8 L (37.2-46.3) % MCHC 30.8 L (32.0-37.0) g/dL RDW 16.7 H (11.5-14.5) % Immature Gran # 0.08 H (0.00-0.04) X 10*3/uL BUN/Creatinine Ratio 36.83 H (12.00-20.00) Ratio Assessment and Plan (1) Infection due to ESBL-producing Escherichia coli Current Visit: Yes Status: Acute Code(s): A49.8 - OTHER BACTERIAL INFECTIONS OF UNSPECIFIED SITE; Z16.12 - EXTENDED SPECTRUM BETA LACTAMASE (ESBL) RESISTANCE SNOMED Code(s): 757509242 (2) UTI (urinary tract infection) Current Visit: No Status: Acute Code(s): N39.0 - URINARY TRACT INFECTION, SITE NOT SPECIFIED SNOMED Code(s): 96261746 Plan: 1patient with initial presentation to the hospital for increasing shortness of breath patient did have a significantly positive UA from urinary symptoms concerning for symptomatic urinary tract infection that has been adequately treated 2 patient remains to be afebrile and white count is normal as well as a normal procalcitonin continue monitor the patient closely off antibiotic Dictation was produced using [employer] dictation software. please excuse any grammatical, word or spelling errors. Time with Patient: Less than 30
[2024-02-04 02:04] VITALS: BP 122/66; PULSE 64; TEMP 97.9
[2024-02-22] MEDS ORDERED: HYDROcodone/APAP 5-325MG 1 EACH TAB PO PRN (07:13)
[2024-02-22] MEDS ORDERED: SYMBICORT 80-4.5 MCG INHALER INHALATION SCH (08:00)
== END 2024-02-05 18:04 | disposition home or self-care (01) | DRG 199 ==
LOC: EC 01:05 → 3SCARD 03:07 → DISRECOVER 03:07 → UNDOADMIN 03:07 → 3SCARD 06:05 → 2SICU 01-18 03:12 → 4SSUR 01-20 15:13 → 2SICU 01-20 15:13
PROVIDERS: ADMIT Hospitalist; ATTEND Hospitalist
PROC: 0W9930Z Drainage of Right Pleural Cavity with Drainage Device, Percutaneous Approach (ICD-10-PCS; principal; 2024-01-17)
PROC: 5A09357 Assistance with Respiratory Ventilation, Less than 24 Consecutive Hours, Continuous Positive Airway Pressure (ICD-10-PCS; 2024-01-17)
PROC: 0W9930Z Drainage of Right Pleural Cavity with Drainage Device, Percutaneous Approach (ICD-10-PCS; 2024-01-25)
DX: J93.11 Primary spontaneous pneumothorax (principal); J96.21 Acute and chronic respiratory failure with hypoxia; E44.0 Moderate protein-calorie malnutrition; Z68.1 Body mass index [BMI] 19.9 or less, adult; J44.1 Chronic obstructive pulmonary disease with (acute) exacerbation; J90 Pleural effusion, not elsewhere classified; J98.11 Atelectasis; N39.0 Urinary tract infection, site not specified; R64 Cachexia; T79.7XXA Traumatic subcutaneous emphysema, initial encounter; Z16.12 Extended spectrum beta lactamase (ESBL) resistance; F17.210 Nicotine dependence, cigarettes, uncomplicated; B96.20 Unspecified Escherichia coli [E. coli] as the cause of diseases classified elsewhere; F32.A Depression, unspecified; F41.9 Anxiety disorder, unspecified; I10 Essential (primary) hypertension; I27.20 Pulmonary hypertension, unspecified; J43.9 Emphysema, unspecified; Z99.81 Dependence on supplemental oxygen; R29.6 Repeated falls; Z79.51 Long term (current) use of inhaled steroids; Z91.148 Patient's other noncompliance with medication regimen for other reason; Z91.199 Patient's noncompliance with other medical treatment and regimen due to unspecified reason; Z91.81 History of falling; Z71.3 Dietary counseling and surveillance; Z28.310 Unvaccinated for COVID-19; Z79.899 Other long term (current) drug therapy
CPT/HCPCS: 32551; 36415; 36600; 71045; 71046; 71250; 80048; 80053; 81001; 82803; 82805; 83605; 83735; 83880; 84145; 84484; 85025; 85027; 85610; 85730; 87077; 87086; 87186; 93005; 94640; 94660; 94760; 96365; 96375; 99291

== ENCOUNTER 2024-03-22 17:09 | Inpatient (IN) | payer MEDICARE ==
--- NOTE | 2024-03-22 17:14 | ED ---
Altered Mental Status HPI - General Stated Complaint: AMS, urogenital Time Seen by Provider: 03/22/24 17:12 Source: RN notes reviewed, old records reviewed Mode of arrival: ambulatory Limitations: no limitations - History of Present Illness Initial Comments: This is a 74-year-old female to the ER for evaluation of altered mental status weakness but concern for urinary tract infection severe COPD shortness of breath and low oxygen levels. MD Complaint: altered mental status, confusion, weakness -: days(s) Severity: moderate Consistency of Symptoms: getting worse Associated Symptoms: denies other symptoms Treatments Prior to Arrival: oxygen - Related Data Home Medications Medication Instructions Recorded Confirmed Acetaminophen [Tylenol] 650 mg PO Q6H PRN 01/17/24 03/22/24 Cholecalciferol [Vitamin D3 (25 50 mcg PO DAILY 01/17/24 03/22/24 Mcg = 1000 Iu)] Fluticasone Propion/Salmeterol 1 puff INHALATION RT-BID 01/17/24 03/22/24 [Fluticasone-Salmeterol 250-50] Ipratropium-Albuterol Nebulize 3 ml INHALATION RT-Q4H 01/17/24 03/22/24 [Duoneb 0.5 mg-3 mg/3 ml Soln] Previous Rx's Medication Instructions Recorded Folic Acid 1 mg PO DAILY #30 tablet 12/25/23 Multivitamins, Thera [Multivitamin 1 tab PO DAILY #30 tablet 12/25/23 (formulary)] Thiamine [Vitamin B-1] 100 mg PO DAILY #30 tablet 12/25/23 Heparin Sodium,Porcine (1 ml) 5,000 unit SQ Q12HR each 01/31/24 [Heparin Sodium] Pantoprazole [Protonix] 40 mg PO DAILY tab 01/31/24 Allergies Allergy/AdvReac Type Severity Reaction Status Date / Time No Known Allergies Allergy Verified 03/22/24 18:41 Review of Systems ROS Statement: Those systems with pertinent positive or pertinent negative responses have been documented in the HPI. ROS Other: All systems not noted in ROS Statement are negative. Past Medical History Past Medical History: COPD, Hypertension Additional Past Medical History / Comment(s): [place] History of Any Multi-Drug Resistant Organisms: None Reported Date of last positivie culture/infection: 01/18/24 MDRO Source:: URINE Past Surgical History: Section Additional Past Surgical History / Comment(s): vain stripping left leg Past Anesthesia/Blood Transfusion Reactions: No Reported Reaction Past Psychological History: Anxiety, Depression Smoking Status: Current every day smoker Past Alcohol Use History: None Reported Past Drug Use History: None Reported - Past Family History Mother Family Medical History: No Reported History Additional Family Medical History / Comment(s): at 80 years old of old age. Father Family Medical History: No Reported History Additional Family Medical History / Comment(s): at 85 years old of old age. General Exam Limitations: altered mental status General appearance: anxious, in distress, cachectic Head exam: Present: atraumatic, normocephalic, normal inspection Eye exam: Present: normal appearance, PERRL, EOMI. Absent: scleral icterus, conjunctival injection, periorbital swelling ENT exam: Present: normal exam, mucous membranes moist Neck exam: Present: normal inspection. Absent: tenderness, meningismus, lymphadenopathy Respiratory exam: Present: normal lung sounds bilaterally, respiratory distress, wheezes, accessory muscle use, decreased breath sounds, prolonged expiratory. Absent: rales, rhonchi, stridor Cardiovascular Exam: Present: regular rate, normal rhythm, normal heart sounds. Absent: systolic murmur, diastolic murmur, rubs, gallop, clicks GI/Abdominal exam: Present: soft, normal bowel sounds. Absent: distended, tenderness, guarding, rebound, rigid Extremities exam: Present: normal inspection, full ROM, normal capillary refill. Absent: tenderness, pedal edema, joint swelling, calf tenderness Back exam: Present: normal inspection Neurological exam: Present: alert, oriented X3, CN II-XII intact Psychiatric exam: Present: normal affect, normal mood Skin exam: Present: warm, dry, intact, normal color. Absent: rash Course Vital Signs 03/22/24 03/22/24 17:16 19:22 Temperature 97.5 F L Pulse Rate 88 80 Respiratory 18 18 Rate Blood Pressure 186/106 187/92 O2 Sat by Pulse 93 L 92 L Oximetry - Reevaluation(s) Reevaluation #1: 03/22/24 17:25 Medical records reviewed Reevaluation #2: 03/22/24 17:25 Patient with significant shortness of breath persistent shortness of breath Reevaluation #3: 03/22/24 18:17 Patient informed of results and questions answered Reevaluation #4: Was pt. sent in by a medical professional or institution (, PARAS, HEATSET WINDER OPERATOR, urgent care, hospital, or group home...) When possible be specific @ -no Did you speak to anyone other than the patient for history (EMS, parent, family, police, friend...)? What history was obtained from this source @ -no Did you review nursing and triage notes (agree or disagree)? Why? @ -agree Are old charts reviewed (outside hosp., previous admission, EMS record, old EKG, old radiological studies, urgent care reports/EKG's, group home records)? Report findings @ -yes Differential Diagnosis (chest pain, altered mental status, abdominal pain women, abdominal pain men, vaginal bleeding, weakness, fever, dyspnea, syncope, headache, dizziness, GI bleed, back pain, seizure, CVA, palpatations, mental health, musculoskeletal)? @ -prior EKG interpreted by me (3pts min.). @ -yes X-rays interpreted by me (1pt min.). @ -yes negative for acute disease CT interpreted by me (1pt min.). @ -no U/S interpreted by me (1pt. min.). @ -no What testing was considered but not performed or refused? (CT, X-rays, U/S, labs)? Why? @ -none What meds were considered but not given or refused? Why? @ -none Did you discuss the management of the patient with other professionals (professionals i.e. , PARAS, HEATSET WINDER OPERATOR, lab, RT, psych nurse, social media strategist, religion professor, teacher, environmental health officer, case filler)? Give summary @ -no Was smoking cessation discussed for >3mins.? @ -no Was critical care preformed (if so, how long)? @ -no Were there social determinants of health that impacted care today? How? (Homelessness, low income, unemployed, alcoholism, drug addiction, transportation, low edu. Level, literacy, decrease access to med. care, care home, rehab)? @ -none Was there de-escalation of care discussed even if they declined (Discuss DNR or withdrawal of care, Hospice)? DNR status @ -no What co-morbidities impacted this encounter? (DM, HTN, Smoking, COPD, CAD, Cancer, CVA, ARF, Chemo, Hep., AIDS, mental health diagnosis, sleep apnea, morbid obesity)? @ -none Was patient admitted / discharged? Hospital course, mention meds given and route, prescriptions, significant lab abnormalities, going to OR and other pertinent info. @ - 74 female to ER for evaluation of significant urinary tract infection. Severe COPD exacerbation will admit for treatment of both Admitted Undiagnosed new problem with uncertain prognosis? @ -no Drug Therapy requiring intensive monitoring for toxicity (Heparin, Nitro, Insulin, Cardizem)? @ -no Were any procedures done? @ -no Diagnosis/symptom? @ -COPD with hypoxia and abdominal pain, UTI Acute, or Chronic, or Acute on Chronic? @ -Acute Uncomplicated (without systemic symptoms) or Complicated (systemic symptoms)? @ -Complicated Side effects of treatment? @ -no Exacerbation, Progression, or Severe Exacerbation? @ -exacerbation Poses a threat to life or bodily function? How? (Chest pain, [place], ND, pneumonia, PE, COPD, DKA, ARF, appy, cholecystitis, CVA, Diverticulitis, Homicidal, Suicidal, threat to staff... and all critical care pts) @ -yes extremes of age Reevaluation #5: Differential Dyspnea: Coronary syndrome, arrhythmia, tamponade, asthma, COPD, pulmonary embolism, pneumonia, pneumothorax, pulmonary effusion, anaphylaxis, diabetic ketoacidosis, flailed chest, pulmonary contusion, diaphragmatic rupture, anemia, neuromuscular, this is not meant to be an all-inclusive list. Differential Altered Mental Status: Hypoglycemia, DKA, hypercapnia, ETOH, overdose, CO poisoning, trauma, myxedema coma, HTN encephalopathy, infection, encephalitis, psychosis, intercranial hemorrhage, hepatic encephalopathy, meningitis, CVA, this is not meant to be an all-inclusive list - Consultations Consultation #1: Spoke with [facility] who will admit this patient Medical Decision Making - Medical Decision Making 74 female to ER for evaluation of significant urinary tract infection. Severe COPD exacerbation will admit for treatment of both - Lab Data Result diagrams: 03/24/24 05:58 03/24/24 05:58 Lab Results 03/22/24 03/22/24 03/22/24 Range/Units 17:25 17:25 17:25 WBC 5.0 (3.8-10.6) k/uL RBC 4.15 (3.80-5.40) m/uL Hgb 11.3 L (11.4-16.0) gm/dL Hct 36.4 (34.0-46.0) % MCV 87.8 (80.0-100.0) fL MCH 27.3 (25.0-35.0) pg MCHC 31.1 (31.0-37.0) g/dL RDW 14.8 (11.5-15.5) % Plt Count 323 (150-450) k/uL MPV 7.4 Neutrophils % 71 % Lymphocytes % 16 % Monocytes % 7 % Eosinophils % 3 % Basophils % 1 % Neutrophils # 3.6 (1.3-7.7) k/uL Lymphocytes # 0.8 L (1.0-4.8) k/uL Monocytes # 0.3 (0-1.0) k/uL Eosinophils # 0.2 (0-0.7) k/uL Basophils # 0.0 (0-0.2) k/uL Hypochromasia Marked PT 10.4 (10.0-12.5) sec INR 0.9 (<1.2) APTT 25.2 (22.0-30.0) sec Sodium Cancelled Potassium Cancelled Chloride Cancelled Carbon Dioxide Cancelled Anion Gap Cancelled BUN Cancelled Creatinine Cancelled Est GFR (CKD-EPI) Cancelled Est GFR (CKD-EPI)AfAm Cancelled Est GFR (CKD-EPI)NonAf Cancelled BUN/Creatinine Ratio Cancelled Glucose Cancelled POC Glucose (mg/dL) (70-110) mg/dL POC Glu Service Trainer ID Plasma Lactic Acid [place] (0.7-2.0) mmol/L Calcium Cancelled Phosphorus Cancelled Magnesium Cancelled Total Bilirubin Cancelled AST Cancelled ALT Cancelled Alkaline Phosphatase Cancelled Ammonia (<30) umol/L Troponin I (0.000-0.034) ng/mL NT-Pro-B Natriuret Pep 579 pg/mL Total Protein Cancelled Albumin Cancelled Globulin Cancelled Albumin/Globulin Ratio Cancelled Urine Color Urine Appearance (Clear) Urine pH (5.0-8.0) Ur Specific [place] (1.001-1.035) Urine Protein (Negative) Urine Glucose (UA) (Negative) Urine Ketones (Negative) Urine Blood (Negative) Urine Nitrite (Negative) Urine Bilirubin (Negative) Urine Urobilinogen (<2.0) mg/dL Ur Leukocyte Esterase (Negative) Urine RBC (0-5) /hpf Urine WBC (0-5) /hpf Ur Squamous Epith Cells (0-4) /hpf Amorphous Sediment (None) /hpf Urine Bacteria (None) /hpf Hyaline Casts (0-2) /lpf Urine Mucus (None) /hpf 03/22/24 03/22/24 03/22/24 Range/Units 17:25 17:25 17:26 WBC (3.8-10.6) k/uL RBC (3.80-5.40) m/uL Hgb (11.4-16.0) gm/dL Hct (34.0-46.0) % MCV (80.0-100.0) fL MCH (25.0-35.0) pg MCHC (31.0-37.0) g/dL RDW (11.5-15.5) % Plt Count (150-450) k/uL MPV Neutrophils % % Lymphocytes % % Monocytes % % Eosinophils % % Basophils % % Neutrophils # (1.3-7.7) k/uL Lymphocytes # (1.0-4.8) k/uL Monocytes # (0-1.0) k/uL Eosinophils # (0-0.7) k/uL Basophils # (0-0.2) k/uL Hypochromasia PT (10.0-12.5) sec INR (<1.2) APTT (22.0-30.0) sec Sodium Potassium Chloride Carbon Dioxide Anion Gap BUN Creatinine Est GFR (CKD-EPI) Est GFR (CKD-EPI)AfAm Est GFR (CKD-EPI)NonAf BUN/Creatinine Ratio Glucose POC Glucose (mg/dL) 134 H (70-110) mg/dL POC Glu Service Trainer ID [place] Plasma Lactic Acid [place] 1.2 (0.7-2.0) mmol/L Calcium Phosphorus Magnesium Total Bilirubin AST ALT Alkaline Phosphatase Ammonia <9 (<30) umol/L Troponin I <0.012 (0.000-0.034) ng/mL NT-Pro-B Natriuret Pep pg/mL Total Protein Albumin Globulin Albumin/Globulin Ratio Urine Color Urine Appearance (Clear) Urine pH (5.0-8.0) Ur Specific [place] (1.001-1.035) Urine Protein (Negative) Urine Glucose (UA) (Negative) Urine Ketones (Negative) Urine Blood (Negative) Urine Nitrite (Negative) Urine Bilirubin (Negative) Urine Urobilinogen (<2.0) mg/dL Ur Leukocyte Esterase (Negative) Urine RBC (0-5) /hpf Urine WBC (0-5) /hpf Ur Squamous Epith Cells (0-4) /hpf Amorphous Sediment (None) /hpf Urine Bacteria (None) /hpf Hyaline Casts (0-2) /lpf Urine Mucus (None) /hpf 03/22/24 Range/Units 17:30 WBC (3.8-10.6) k/uL RBC (3.80-5.40) m/uL Hgb (11.4-16.0) gm/dL Hct (34.0-46.0) % MCV (80.0-100.0) fL MCH (25.0-35.0) pg MCHC (31.0-37.0) g/dL RDW (11.5-15.5) % Plt Count (150-450) k/uL MPV Neutrophils % % Lymphocytes % % Monocytes % % Eosinophils % % Basophils % % Neutrophils # (1.3-7.7) k/uL Lymphocytes # (1.0-4.8) k/uL Monocytes # (0-1.0) k/uL Eosinophils # (0-0.7) k/uL Basophils # (0-0.2) k/uL Hypochromasia PT (10.0-12.5) sec INR (<1.2) APTT (22.0-30.0) sec Sodium Potassium Chloride Carbon Dioxide Anion Gap BUN Creatinine Est GFR (CKD-EPI) Est GFR (CKD-EPI)AfAm Est GFR (CKD-EPI)NonAf BUN/Creatinine Ratio Glucose POC Glucose (mg/dL) (70-110) mg/dL POC Glu Service Trainer ID Plasma Lactic Acid [place] (0.7-2.0) mmol/L Calcium Phosphorus Magnesium Total Bilirubin AST ALT Alkaline Phosphatase Ammonia (<30) umol/L Troponin I (0.000-0.034) ng/mL NT-Pro-B Natriuret Pep pg/mL Total Protein Albumin Globulin Albumin/Globulin Ratio Urine Color Yellow Urine Appearance Cloudy H (Clear) Urine pH 7.0 (5.0-8.0) Ur Specific [place] 1.015 (1.001-1.035) Urine Protein Trace H (Negative) Urine Glucose (UA) Negative (Negative) Urine Ketones Negative (Negative) Urine Blood Trace H (Negative) Urine Nitrite Negative (Negative) Urine Bilirubin Negative (Negative) Urine Urobilinogen <2.0 (<2.0) mg/dL Ur Leukocyte Esterase Large H (Negative) Urine RBC 8 H (0-5) /hpf Urine WBC 75 H (0-5) /hpf Ur Squamous Epith Cells 3 (0-4) /hpf Amorphous Sediment Rare H (None) /hpf Urine Bacteria Occasional H (None) /hpf Hyaline Casts 2 (0-2) /lpf Urine Mucus Moderate H (None) /hpf - EKG Data -: EKG Interpreted by Me (EKG is sinus 90 MD 204 QRS 94 QTc 406) - Radiology Data Radiology results: report reviewed (Chest x-ray is negative for acute disease), image reviewed Critical Care Time Critical Care Time: Yes Total Critical Care Time: 31 Disposition Clinical Impression: COPD (chronic obstructive pulmonary disease), UTI (urinary tract infection), Hypoxic respiratory failure, Dehydration Disposition: ADMITTED IP TO THIS [facility] Condition: Serious Is patient prescribed a controlled substance at d/c from ED?: No Time of Disposition: 18:10
[2024-03-22 17:28] LABS: Glucose,Whole Blood 134 mg/dL (70-110)
[2024-03-22 17:48] LABS: Basophils % (A) 1 %; Eosinophils # (A) 0.2 k/uL (0-0.7); Eosinophils % (A) 3 %; HCT 36.4 % (34.0-46.0); HGB 11.3 gm/dL (11.4-16.0); Hypochromasia Marked; Lymphocytes # (A) 0.8 k/uL (1.0-4.8); Lymphocytes % (A) 16 %; MCH 27.3 pg (25.0-35.0); MCHC 31.1 g/dL (31.0-37.0); MCV 87.8 fL (80.0-100.0); Mean Platelet Volume 7.4; Monocytes # (A) 0.3 k/uL (0-1.0); Monocytes % (A) 7 %; Neutrophils # (A) 3.6 k/uL (1.3-7.7); Neutrophils % (A) 71 %; Platelet Count 323 k/uL (150-450); RBC 4.15 m/uL (3.80-5.40); RDW 14.8 % (11.5-15.5)
[2024-03-22 17:50] LABS: Amorphous Sediment,Urine Rare /hpf; Appearance,Urine Cloudy (Clear); Bacteria,Urine Occasional /hpf; Bilirubin,Urine Negative (Negative); Blood,Urine Trace (Negative); Color,Urine Yellow; Glucose,Urine (UA) Negative (Negative); Hyaline Casts,Urine 2 /lpf (0-2); Ketones,Urine Negative (Negative); Leukocyte Esterase,Urine Large (Negative); Mucus,Urine Moderate /hpf; Nitrite,Urine Negative (Negative); Protein,Urine Trace (Negative); RBC,Urine 8 /hpf (0-5); Specific Gravity,Urine 1.015 (1.001-1.035); Squamous Epithelial Cell,Urine 3 /hpf (0-4); Urobilinogen,Urine <2.0 mg/dL (<2.0); WBC,Urine 75 /hpf (0-5)
[2024-03-22 17:58] LABS: INR 0.9 (<1.2); Partial Thromboplastin Time 25.2 sec (22.0-30.0); Prothrombin Time 10.4 sec (10.0-12.5)
[2024-03-22 18:01] LABS: Lactic Acid, Venous 1.2 mmol/L (0.7-2.0)
[2024-03-22] MEDS ORDERED: ONDANSETRON 4 MG/2 ML VIAL IVP PRN (18:18)
[2024-03-22] MEDS ORDERED: NALOXONE 0.4 MG/ML 1 ML VIAL IV PRN (18:18)
[2024-03-22] MEDS ORDERED: ALBUTEROL NEBULIZED 2.5 MG/3 ML INHALATION PRN (18:19)
[2024-03-22] MEDS: SODIUM CHLORIDE 0.9% 1,000 ML IV STA (19:19)
[2024-03-22] MEDS: SODIUM CHLORIDE 0.9% 1,000 ML IV SCH (19:20)
[2024-03-22] MEDS: methylPREDNISolone SOD SUCCI 125 MG/2 ML VIAL IV STA (19:20)
[2024-03-22] MEDS: MORPHINE SULFATE 4 MG/ML SYRINGE IV PRN (20:09)
--- NOTE | 2024-03-22 20:10 | XR ---
EXAMINATION TYPE: XR chest 2V DATE OF EXAM: 03/22/2024 COMPARISON: 02/02/2024 INDICATION: Weakness TECHNIQUE: Frontal and lateral views of the chest are obtained. FINDINGS: The heart size is normal. The pulmonary vasculature is normal. The lungs are clear. IMPRESSION: 1. No acute pulmonary process. 2. COPD [facility], , 03/22/2024 8:08 PM
[2024-03-22 20:36] LABS: ALT 6 U/L (4-34); AST 19 U/L (14-36); African American GFR (CKD) 86 (>60 ml/min/1.73 sqM); Albumin 3.3 g/dL (3.5-5.0); Albumin/Globulin Ratio 1.1; Alkaline Phosphatase 123 U/L (38-126); Anion Gap 1 mmol/L; Blood Urea Nitrogen 22 mg/dL (7-17); Calcium 8.9 mg/dL (8.4-10.2); Carbon Dioxide 32 mmol/L (22-30); Chloride 104 mmol/L (98-107); Globulin 2.9 g/dL; Glucose 92 mg/dL (74-99); Non-African American GFR(CKD) 74 (>60 ml/min/1.73 sqM); Phosphorus 3.3 mg/dL (2.5-4.5); Potassium 3.7 mmol/L (3.5-5.1); Sodium 137 mmol/L (137-145); Total Bilirubin 0.4 mg/dL (0.2-1.3); Total Protein 6.2 g/dL (6.3-8.2)
[2024-03-23] MEDS: methylPREDNISolone SOD SUCCI 125 MG/2 ML VIAL IV SCH (00:15)
[2024-03-23 06:15] LABS: ALT <6 U/L (4-34); AST 17 U/L (14-36); African American GFR (CKD) >90 (>60 ml/min/1.73 sqM); Albumin 3.2 g/dL (3.5-5.0); Alkaline Phosphatase 122 U/L (38-126); Anion Gap 4 mmol/L; Blood Urea Nitrogen 21 mg/dL (7-17); Calcium 8.7 mg/dL (8.4-10.2); Carbon Dioxide 25 mmol/L (22-30); Chloride 105 mmol/L (98-107); Globulin 3.2 g/dL; Glucose 156 mg/dL (74-99); Non-African American GFR(CKD) >90 (>60 ml/min/1.73 sqM); Potassium 4.1 mmol/L (3.5-5.1); Sodium 134 mmol/L (137-145); Total Bilirubin 0.4 mg/dL (0.2-1.3); Total Protein 6.4 g/dL (6.3-8.2)
[2024-03-23 08:28] LABS: Basophils % (A) 0 %; Eosinophils % (A) 0 %; HCT 39.3 % (34.0-46.0); Hypochromasia Marked; Lymphocytes # (A) 0.6 k/uL (1.0-4.8); Lymphocytes % (A) 17 %; MCH 26.8 pg (25.0-35.0); MCHC 30.4 g/dL (31.0-37.0); MCV 87.9 fL (80.0-100.0); Mean Platelet Volume 7.4; Monocytes # (A) 0.1 k/uL (0-1.0); Monocytes % (A) 2 %; Neutrophils # (A) 2.7 k/uL (1.3-7.7); Neutrophils % (A) 80 %; Platelet Count 346 k/uL (150-450); RBC 4.47 m/uL (3.80-5.40); RDW 14.6 % (11.5-15.5); WBC 3.3 k/uL (3.8-10.6)
[2024-03-23] MEDS: PANTOPRAZOLE 40 MG TABLET PO SCH (12:14)
[2024-03-23] MEDS: THIAMINE 100 MG TAB PO SCH (12:14)
[2024-03-23] MEDS: CHOLECALCIFEROL 25 MCG (1000 IU) TABLET PO SCH (12:14)
[2024-03-23] MEDS: FOLIC ACID 1 MG TAB PO SCH (12:14)
[2024-03-23] MEDS: ERTAPENEM 1 GM in SODIUM CHLORIDE 0.9% 50 ML IVPB SCH (12:14)
--- NOTE | 2024-03-23 14:37 | P.HPIM ---
History of Present Illness H&P Date: 03/23/24 History of present illness: 74-year-old female with past medical history significant for COPD on 3 L oxygen at baseline, history of ESBL UTI, history of recent right pneumothorax who presented to ER for evaluation of altered mental status and generalized weakness, shortness of breath and low oxygen levels. Patient is a poor historian, currently alert and oriented x 2-3, reported that she lives at home with son. Patient complaining of lower abdominal discomfort, was unable to tell if she had dysuria urgency or frequency. Patient is hard of feeling. Patient complained of generalized weakness and fatigue, denied any fever or chills. Patient complains of shortness of breath and productive coughwhich is unchanged. Patient denied any headache, vision changes, sore throat, chest pain, palpitations, nausea vomiting diarrhea constipation. Patient is afebrile, heart rate 67, respiratory rate 18, blood pressure 152/80, saturating 94% on 2 L. WBCs 3.3, hemoglobin 12.0, platelet 346. Sodium 134, potassium 4.1, BUN 21, creatinine 0.58. UA positive for large leukocyte [place], WBC 75. Chest x-ray negative for acute process, showed COPD changes. REVIEW OF SYSTEMS: CONSTITUTIONAL: No fever, no malaise, no fatigue. HEENT: No recent visual problems or hearing problems. Denied any sore throat. CARDIOVASCULAR: No chest pain, orthopnea, PND, no palpitations, no syncope. PULMONARY: No shortness of breath, no cough, no hemoptysis. GASTROINTESTINAL: No diarrhea, no nausea, no vomiting, no abdominal pain. NEUROLOGICAL: No headaches, no weakness, no numbness. HEMATOLOGICAL: Denies any bleeding or petechiae. GENITOURINARY: Denies any burning micturition, frequency, or urgency. MUSCULOSKELETAL/RHEUMATOLOGICAL: Denies any joint pain, swelling, or any muscle pain. ENDOCRINE: Denies any polyuria or polydipsia. The rest of the 14-point review of systems is negative. PHYSICAL EXAMINATION: GENERAL: The patient is A&O x3, NAD HEENT: EOMI, Sclerae anicteric, Moist Mucous membranes Neck: Supple, Non tender, No JVD PULMONARY: Equal breath souds B/L, No wheezing, No crackles. CARDIOVASCULAR: S1, S2 present. No murmurs, rubs, or gallops. ABDOMEN: Soft, nontender, nondistended, normoactive bowel sounds. No guarding or rebound tenderness. MUSCULOSKELETAL: No edema, No cyanosis. No clubbing. Normal ROM. Intact peripheral pulses. EXTREMITIES: No cyanosis, clubbing, or pedal edema. NEUROLOGICAL: CN 2-12 grossly intact. No FND Assessment and plan: Acute metabolic encephalopathy: UTI: History of ESBL: Generalized weakness: Brought in for generalized weakness and confusion Mentation is gradually improving, patient is hard of hearing. UA positive Urine culture Ertapenem ID consult Hold benzodiazepine. Acute COPD exacerbation: History of right pneumothorax: History of COPD, Continue supplemental oxygen Continue inhaler steroid bronchodilator protocol Solu-Medrol Incentive spirometry Chest x-ray negative for acute process. DVT prophylaxis Subcutaneous heparin Monitor vital signs and labs Labs and medication were reviewed. Continue same treatment. Further recommendations as per clinical course of the patient Dictation was produced using [employer] dictation software. please excuse any grammatical, word or spelling errors. Past Medical History Past Medical History: COPD, Hypertension Additional Past Medical History / Comment(s): [place] History of Any Multi-Drug Resistant Organisms: None Reported Date of last positivie culture/infection: 01/18/24 MDRO Source:: URINE Past Surgical History: Section Additional Past Surgical History / Comment(s): vain stripping left leg Past Anesthesia/Blood Transfusion Reactions: No Reported Reaction Past Psychological History: Anxiety, Depression Smoking Status: Current some day smoker Past Alcohol Use History: None Reported Additional Past Alcohol Use History / Comment(s): Pt states she has not had alcohol in 2 years. Past Drug Use History: None Reported - Past Family History Mother Family Medical History: No Reported History Additional Family Medical History / Comment(s): at 80 years old of old age. Father Family Medical History: No Reported History Additional Family Medical History / Comment(s): at 85 years old of old age. Medications and Allergies Home Medications Medication Instructions Recorded Confirmed Type Folic Acid 1 mg PO DAILY #30 tablet 12/25/23 03/22/24 Rx Multivitamins, Thera [Multivitamin 1 tab PO DAILY #30 tablet 12/25/23 03/22/24 Rx (formulary)] Thiamine [Vitamin B-1] 100 mg PO DAILY #30 tablet 12/25/23 03/22/24 Rx Acetaminophen [Tylenol] 650 mg PO Q6H PRN 01/17/24 03/22/24 History Cholecalciferol [Vitamin D3 (25 50 mcg PO DAILY 01/17/24 03/22/24 History Mcg = 1000 Iu)] Fluticasone Propion/Salmeterol 1 puff INHALATION RT-BID 01/17/24 03/22/24 History [Fluticasone-Salmeterol 250-50] Ipratropium-Albuterol Nebulize 3 ml INHALATION RT-Q4H 01/17/24 03/22/24 History [Duoneb 0.5 mg-3 mg/3 ml Soln] ALPRAZolam [Xanax] 0.25 mg PO BID PRN tab 01/31/24 03/22/24 Rx Heparin Sodium,Porcine (1 ml) 5,000 unit SQ Q12HR each 01/31/24 03/22/24 Rx [Heparin Sodium] Pantoprazole [Protonix] 40 mg PO DAILY tab 01/31/24 03/22/24 Rx HYDROcodone/APAP 5-325MG [[place] 1 tab PO Q6H PRN 03/22/24 03/22/24 History 5-325] Nitrofurantoin Monohyd/M-Cryst 100 mg PO DAILY 03/22/24 03/22/24 History [Macrobid] Allergies Allergy/AdvReac Type Severity Reaction Status Date / Time No Known Allergies Allergy Verified 03/22/24 18:41 Physical Exam Vitals: Vital Signs Temp Pulse Pulse Resp BP BP Pulse Ox 03/23/24 07:48 97.5 F L 67 18 152/80 94 L 03/23/24 02:00 98.3 F 60 148/78 95 03/22/24 22:30 98.3 F 64 14 156/82 94 L 03/22/24 19:22 80 18 187/92 92 L 03/22/24 17:16 97.5 F L 88 18 186/106 93 L Intake and Output 03/22/24 03/23/24 03/23/24 22:59 06:59 14:59 Other: # Voids 3 1 Weight 48.988 kg 48.988 kg Results CBC & Chem 7: 03/23/24 07:30 03/23/24 05:17 Labs: Abnormal Lab Results - Last 24 Hours (Table) 03/22/24 03/22/24 03/22/24 Range/Units 17:25 17:26 17:30 WBC (3.8-10.6) k/uL Hgb 11.3 L (11.4-16.0) gm/dL MCHC (31.0-37.0) g/dL Lymphocytes # 0.8 L (1.0-4.8) k/uL Sodium (137-145) mmol/L Carbon Dioxide (22-30) mmol/L BUN (7-17) mg/dL Glucose (74-99) mg/dL POC Glucose (mg/dL) 134 H (70-110) mg/dL Total Protein (6.3-8.2) g/dL Albumin (3.5-5.0) g/dL Urine Appearance Cloudy H (Clear) Urine Protein Trace H (Negative) Urine Blood Trace H (Negative) Ur Leukocyte Esterase Large H (Negative) Urine RBC 8 H (0-5) /hpf Urine WBC 75 H (0-5) /hpf Amorphous Sediment Rare H (None) /hpf Urine Bacteria Occasional H (None) /hpf Urine Mucus Moderate H (None) /hpf 03/22/24 03/23/24 03/23/24 Range/Units 19:30 05:17 07:30 WBC 3.3 L (3.8-10.6) k/uL Hgb (11.4-16.0) gm/dL MCHC 30.4 L (31.0-37.0) g/dL Lymphocytes # 0.6 L (1.0-4.8) k/uL Sodium 134 L (137-145) mmol/L Carbon Dioxide 32 H (22-30) mmol/L BUN 22 H 21 H (7-17) mg/dL Glucose 156 H (74-99) mg/dL POC Glucose (mg/dL) (70-110) mg/dL Total Protein 6.2 L (6.3-8.2) g/dL Albumin 3.3 L 3.2 L (3.5-5.0) g/dL Urine Appearance (Clear) Urine Protein (Negative) Urine Blood (Negative) Ur Leukocyte Esterase (Negative) Urine RBC (0-5) /hpf Urine WBC (0-5) /hpf Amorphous Sediment (None) /hpf Urine Bacteria (None) /hpf Urine Mucus (None) /hpf Thrombosis Risk Factor Assmnt - Choose All That Apply Each Risk Factor Represents 3 Points: Age 75 years or older Thrombosis Risk Factor Assessment Total Risk Factor Score: 3 Thrombosis Risk Factor Assessment Level: Moderate Risk
[2024-03-23] MEDS: SYMBICORT 80-4.5 MCG INHALER INHALATION SCH (21:25)
[2024-03-23] MEDS: HEPARIN SODIUM,PORCINE 5,000 UNIT/ML 1 ML VIAL SQ SCH (22:22)
--- NOTE | 2024-03-23 22:56 | P.CONS ---
History of Present Illness - Reason for Consult Consult date: 03/23/24 UTI, altered mental status history of ESBL Requesting physician: Ifeanyi Kelly - Chief Complaint Mental status changes X 2 days - History of Present Illness Patient is a 74-year-old female past medical history of COPD hypertension UTI pneumothorax patient has been brought into the hospital for evaluation of mental status changes that apparently has been going on for a day or 2 patient also complaining of lower abdominal pain however cannot tell me if he was having any burning or frequency of urine did have some nausea but no vomiting. Denies having any chest pain shortness of breath or any worsening cough or sputum production no diarrhea on presentation to the hospital the patient was afebrile no fever have been recorded subsequently patient was not tachycardic or hypotensive patient is currently on 2 L nasal cannula oxygen he did have a white count of 5.0 creatinine 0.78 electrolytes are normal liver enzymes are normal patient did have a positive UA with large leukocyte esterase 75 WBC concerning for UTI keeping in mind her recent urine culture positive for ESBL patient was started on antibiotics infectious he was consulted for further management patient did have a chest x-ray no acute pulmonary process COPD Review of Systems Positive points has been mentioned in HPI complete review could not be obtained because of his underlying mental status Past Medical History Past Medical History: COPD, Hypertension Additional Past Medical History / Comment(s): UNGA History of Any Multi-Drug Resistant Organisms: None Reported Year Discovered:: 01/18/24 MDRO Source:: URINE Past Surgical History: Section Additional Past Surgical History / Comment(s): vain stripping left leg Past Anesthesia/Blood Transfusion Reactions: No Reported Reaction Past Psychological History: Anxiety, Depression Smoking Status: Current some day smoker Past Alcohol Use History: None Reported Additional Past Alcohol Use History / Comment(s): Pt states she has not had alcohol in 2 years. Past Drug Use History: None Reported - Past Family History Mother Family Medical History: No Reported History Additional Family Medical History / Comment(s): at 80 years old of old age. Father Family Medical History: No Reported History Additional Family Medical History / Comment(s): at 85 years old of old age. Medications and Allergies Home Medications Medication Instructions Recorded Confirmed Type Folic Acid 1 mg PO DAILY #30 tablet 12/25/23 03/22/24 Rx Multivitamins, Thera [Multivitamin 1 tab PO DAILY #30 tablet 12/25/23 03/22/24 Rx (formulary)] Thiamine [Vitamin B-1] 100 mg PO DAILY #30 tablet 12/25/23 03/22/24 Rx Acetaminophen [Tylenol] 650 mg PO Q6H PRN 01/17/24 03/22/24 History Cholecalciferol [Vitamin D3 (25 50 mcg PO DAILY 01/17/24 03/22/24 History Mcg = 1000 Iu)] Fluticasone Propion/Salmeterol 1 puff INHALATION RT-BID 01/17/24 03/22/24 History [Fluticasone-Salmeterol 250-50] Ipratropium-Albuterol Nebulize 3 ml INHALATION RT-Q4H 01/17/24 03/22/24 History [Duoneb 0.5 mg-3 mg/3 ml Soln] ALPRAZolam [Xanax] 0.25 mg PO BID PRN tab 01/31/24 03/22/24 Rx Heparin Sodium,Porcine (1 ml) 5,000 unit SQ Q12HR each 01/31/24 03/22/24 Rx [Heparin Sodium] Pantoprazole [Protonix] 40 mg PO DAILY tab 01/31/24 03/22/24 Rx HYDROcodone/APAP 5-325MG [Fidelity 1 tab PO Q6H PRN 03/22/24 03/22/24 History 5-325] Nitrofurantoin Monohyd/M-Cryst 100 mg PO DAILY 03/22/24 03/22/24 History [Macrobid] Allergies Allergy/AdvReac Type Severity Reaction Status Date / Time No Known Allergies Allergy Verified 03/22/24 18:41 Physical Exam Vitals: Vital Signs Temp Pulse Pulse Resp BP BP Pulse Ox 03/23/24 07:48 97.5 F L 67 18 152/80 94 L 03/23/24 02:00 98.3 F 60 148/78 95 03/22/24 22:30 98.3 F 64 14 156/82 94 L 03/22/24 19:22 80 18 187/92 92 L 03/22/24 17:16 97.5 F L 88 18 186/106 93 L Intake and Output 03/22/24 03/23/24 03/23/24 22:59 06:59 14:59 Other: # Voids 3 1 Weight 48.988 kg 48.988 kg GENERAL DESCRIPTION: Elderly female lying in bed, no distress. No tachypnea or accessory muscle of respiration use. HEENT: Shows Pallor , no scleral icterus. Oral mucous membrane is dry. No pharyngeal erythema or thrush NECK: Trachea central, no thyromegaly. LUNGS: Unlabored breathing. Clear to auscultation anteriorly. No wheeze or crackle. HEART: S1, S2, regular rate and rhythm. No loud murmur ABDOMEN: Soft, no tenderness , guarding or rigidity, no organomegaly EXTREMITIES: No edema of feet. SKIN: No rash, no masses palpable. NEUROLOGICAL: The patient is awake, alert, oriented x1, mood and affect normal. Results CBC & Chem 7: 03/23/24 07:30 03/23/24 05:17 Labs: Abnormal Lab Results - Last 24 Hours (Table) 03/22/24 03/22/24 03/22/24 Range/Units 17:25 17:26 17:30 WBC (3.8-10.6) k/uL Hgb 11.3 L (11.4-16.0) gm/dL MCHC (31.0-37.0) g/dL Lymphocytes # 0.8 L (1.0-4.8) k/uL Sodium (137-145) mmol/L Carbon Dioxide (22-30) mmol/L BUN (7-17) mg/dL Glucose (74-99) mg/dL POC Glucose (mg/dL) 134 H (70-110) mg/dL Total Protein (6.3-8.2) g/dL Albumin (3.5-5.0) g/dL Urine Appearance Cloudy H (Clear) Urine Protein Trace H (Negative) Urine Blood Trace H (Negative) Ur Leukocyte Esterase Large H (Negative) Urine RBC 8 H (0-5) /hpf Urine WBC 75 H (0-5) /hpf Amorphous Sediment Rare H (None) /hpf Urine Bacteria Occasional H (None) /hpf Urine Mucus Moderate H (None) /hpf 03/22/24 03/23/24 03/23/24 Range/Units 19:30 05:17 07:30 WBC 3.3 L (3.8-10.6) k/uL Hgb (11.4-16.0) gm/dL MCHC 30.4 L (31.0-37.0) g/dL Lymphocytes # 0.6 L (1.0-4.8) k/uL Sodium 134 L (137-145) mmol/L Carbon Dioxide 32 H (22-30) mmol/L BUN 22 H 21 H (7-17) mg/dL Glucose 156 H (74-99) mg/dL POC Glucose (mg/dL) (70-110) mg/dL Total Protein 6.2 L (6.3-8.2) g/dL Albumin 3.3 L 3.2 L (3.5-5.0) g/dL Urine Appearance (Clear) Urine Protein (Negative) Urine Blood (Negative) Ur Leukocyte Esterase (Negative) Urine RBC (0-5) /hpf Urine WBC (0-5) /hpf Amorphous Sediment (None) /hpf Urine Bacteria (None) /hpf Urine Mucus (None) /hpf Assessment and Plan (1) UTI (urinary tract infection) Current Visit: Yes Status: Acute Code(s): N39.0 - URINARY TRACT INFECTION, SITE NOT SPECIFIED SNOMED Code(s): 21942533 Plan: 1patient presents hospital mental status changes lower abdominal pain in this patient who did have significantly positive UA concerning for a symptomatic UTI with recent urine culture positive for ESBL E. coli 2-patient is currently covered with Invanz 1 g and to continue while waiting for the culture to finalize We will follow on clinical condition and cultures to further adjust medication if needed Thank you for this consultation we will follow the patient along with you Dictation was produced using [employer] dictation software. please excuse any grammatical, word or spelling errors. Time with Patient: Greater than 30
[2024-03-24] MEDS: MULTIVITAMINS, THERA 1 EACH TAB PO SCH (08:14)
[2024-03-24 08:44] LABS: Basophils # (A) 0.01 X 10*3/uL (0.00-0.10); Basophils % (A) 0.1 %; Eosinophils # (A) 0 X 10*3/uL (0.04-0.35); Eosinophils % (A) 0 %; HCT 34.4 % (37.2-46.3); HGB 10.8 g/dL (12.0-15.0); Lymphocytes % (A) 14.7 %; MCH 26.9 pg (27.0-32.0); MCHC 31.4 g/dL (32.0-37.0); MCV 85.6 FL (80.0-97.0); Mean Platelet Volume 10.4 FL (9.5-12.2); Monocytes # (A) 0.09 X 10*3/uL (0.20-1.00); Monocytes % (A) 1.3 %; NRBC Per 100 WBC 0 X 10*3/uL (0.00-0.01); Neutrophils # (A) 5.65 X 10*3/uL (1.80-7.70); Neutrophils % (A) 83.3 %; Platelet Count 344 X 10*3/uL (140-440); RBC 4.02 X 10*6/uL (4.10-5.20); RDW 14.3 % (11.5-14.5); WBC 6.79 X 10*3/uL (4.50-10.00)
[2024-03-24 09:01] LABS: BUN/Creat Ratio 35.17 Ratio (12.00-20.00); Blood Urea Nitrogen 21.1 mg/dL (9.0-27.0); Calcium 8.5 mg/dL (8.7-10.3); Carbon Dioxide 23.6 mmol/L (21.6-31.8); Chloride 104 mmol/L (96-109); Glucose 153 mg/dL (70-110); Potassium 3.8 mmol/L (3.5-5.5); Sodium 137 mmol/L (135-145)
[2024-03-24] MEDS ORDERED: IPRATROPIUM-ALBUTEROL 3 ML NEB INHALATION PRN (10:01)
--- NOTE | 2024-03-24 15:05 | P.PN ---
Subjective Progress Note Date: 03/24/24 Interval History: 74-year-old female with past medical history significant for COPD on 3 L oxygen at baseline, history of ESBL UTI, history of recent right pneumothorax who presented to ER for evaluation of altered mental status and generalized weakness, shortness of breath and low oxygen levels. Patient is a poor historian, currently alert and oriented x 2-3, reported that she lives at home with son. Patient complaining of lower abdominal discomfort, was unable to tell if she had dysuria urgency or frequency. Patient is hard of feeling. Patient complained of generalized weakness and fatigue, denied any fever or chills. Patient complains of shortness of breath and productive coughwhich is unc hanged. Patient denied any headache, vision changes, sore throat, chest pain, palpitations, nausea vomiting diarrhea constipation. Patient is afebrile, heart rate 67, respiratory rate 18, blood pressure 152/80, saturating 94% on 2 L. WBCs 3.3, hemoglobin 12.0, platelet 346. Sodium 134, potassium 4.1, BUN 21, creatinine 0.58. UA positive for large leukocyte Estrace, WBC 75. Chest x-ray negative for acute process, showed COPD changes. 4patient was seen and examined today. Patient is more alert and oriented today, hard of hearing. Patient remains on ertapenem for UTI. Infectious disease following. PT/OT consulted awaiting evaluation. Patient remained afebrile, heart rate 67, respiratory rate 16, blood pressure 146/80, saturating 97% on 2 L. WBC 6.7, hemoglobin 10.8, platelets 344. BMP unremarkable. Urine culture contaminated. Assessment and plan: Acute metabolic encephalopathy: Improving UTI: History of ESBL: Generalized weakness: Brought in for generalized weakness and confusion Mentation is gradually improving, patient is hard of hearing. UA positive Urine culture Ertapenem ID consult Hold benzodiazepine. Acute COPD exacerbation: History of right pneumothorax: History of COPD, Continue supplemental oxygen Continue inhaler steroid bronchodilator protocol Solu-Medrol Incentive spirometry Chest x-ray negative for acute process. DVT prophylaxis Subcutaneous heparin Monitor vital signs and labs Labs and medication were reviewed. Continue same treatment. Further recommendations as per clinical course of the patient PHYSICAL EXAMINATION: GENERAL: The patient is A&O x3, NAD HEENT: EOMI, Sclerae anicteric, Moist Mucous membranes Neck: Supple, Non tender, No JVD PULMONARY: Equal breath souds B/L, No wheezing, No crackles. CARDIOVASCULAR: S1, S2 present. No murmurs, rubs, or gallops. ABDOMEN: Soft, nontender, nondistended, normoactive bowel sounds. No guarding or rebound tenderness. MUSCULOSKELETAL: No edema, No cyanosis. No clubbing. Normal ROM. Intact peripheral pulses. EXTREMITIES: No cyanosis, clubbing, or pedal edema. NEUROLOGICAL: CN 2-12 grossly intact. No FND Skin: No Rash REVIEW OF SYSTEMS: CONSTITUTIONAL: No fever or chills. CARDIOVASCULAR: No chest pain, palpitations or syncope. PULMONARY: No shortness of breath, no cough, sore throat. GASTROINTESTINAL: No nausea, vomiting, diarrhea, abdominal pain. : No Dysuria, urgency, frequency. Extremities: No edema. NEUROLOGICAL: No headaches, no weakness, or numbness Dictation was produced using [employer] dictation software. please excuse any grammatical, word or spelling errors. Objective - Vital Signs Vital signs: Vital Signs Temp 98.1 F 03/24/24 14:08 Pulse 67 03/24/24 14:08 Resp 16 03/24/24 14:08 BP 146/80 03/24/24 14:08 Pulse Ox 97 03/24/24 14:08 FiO2 Intake & Output 03/23/24 03/24/24 03/24/24 18:59 06:59 18:59 Intake Total 650 Balance 650 Intake: Intake, IV Titration 650 Amount Ertapenem 1 gm In Sodium 50 Chloride 0.9% 50 ml @ 100 mls/hr IVPB DAILY [facility] Rx #:[id number] Sodium Chloride 0.9% 1, 600 000 ml @ 75 mls/hr IV . [id number] [facility] Rx#:[id number] Other: Voiding Method Diaper Incontinent # Voids 3 1 # Bowel Movements 1 - Labs CBC & Chem 7: 03/24/24 05:58 03/24/24 05:58 Labs: Abnormal Lab Results - Last 24 Hours (Table) 03/24/24 03/24/24 Range/Units 05:58 05:58 RBC 4.02 L (4.10-5.20) X 10*6/uL Hgb 10.8 L (12.0-15.0) g/dL Hct 34.4 L (37.2-46.3) % MCH 26.9 L (27.0-32.0) pg MCHC 31.4 L (32.0-37.0) g/dL Monocytes # 0.09 L (0.20-1.00) X 10*3/uL Eosinophils # 0 L (0.04-0.35) X 10*3/uL BUN/Creatinine Ratio 35.17 H (12.00-20.00) Ratio Glucose 153 H (70-110) mg/dL Calcium 8.5 L (8.7-10.3) mg/dL Microbiology - Last 24 Hours (Table) 03/22/24 17:30 Urine Culture - Final Urine,Clean Catch
[2024-03-24] MEDS: methylPREDNISolone SOD SUCCI 40 MG/ML 1 ML VIAL IV SCH (20:52)
[2024-03-25] MEDS ORDERED: ALPRAZolam 0.25 MG TAB PO PRN (14:01)
--- NOTE | 2024-03-25 14:03 | P.PN ---
Subjective Progress Note Date: 03/25/24 Interval History: 74-year-old female with past medical history significant for COPD on 3 L oxygen at baseline, history of ESBL UTI, history of recent right pneumothorax who presented to ER for evaluation of altered mental status and generalized weakness, shortness of breath and low oxygen levels. Patient is a poor historian, currently alert and oriented x 2-3, reported that she lives at home with son. Patient complaining of lower abdominal discomfort, was unable to tell if she had dysuria urgency or frequency. Patient is hard of feeling. Patient complained of generalized weakness and fatigue, denied any fever or chills. Patient complains of shortness of breath and productive coughwhich is unc hanged. Patient denied any headache, vision changes, sore throat, chest pain, palpitations, nausea vomiting diarrhea constipation. Patient is afebrile, heart rate 67, respiratory rate 18, blood pressure 152/80, saturating 94% on 2 L. WBCs 3.3, hemoglobin 12.0, platelet 346. Sodium 134, potassium 4.1, BUN 21, creatinine 0.58. UA positive for large leukocyte Estrace, WBC 75. Chest x-ray negative for acute process, showed COPD changes. 03/24/2024atient was seen and examined today. Patient is more alert and oriented today, hard of hearing. Patient remains on ertapenem for UTI. Infectious disease following. PT/OT consulted awaiting evaluation. Patient remained afebrile, heart rate 67, respiratory rate 16, blood pressure 146/80, saturating 97% on 2 L. WBC 6.7, hemoglobin 10.8, platelets 344. BMP unremarkable. Urine culture contaminated. 03/25/2024/patient was seen and examined today. Patient is hard of hearing, otherwise alert and oriented. Remains on ertapenem for UTI, infectious disease following. PT/OT consulted. Patient remained afebrile, vital stable. Blood pressure elevated. Add Norvasc., Will switch Solu-Medrol to prednisone oral. Saturating 93% 2 L. Assessment and plan: Acute metabolic encephalopathy: Improving UTI: History of ESBL: Generalized weakness: Brought in for generalized weakness and confusion Mentation is gradually improving, patient is hard of hearing. UA positive Urine culture Ertapenem ID consult Resume home dose Xanax as needed. Acute COPD exacerbation: History of right pneumothorax: History of COPD, Continue supplemental oxygen Continue inhaler steroid bronchodilator protocol Solu-Medrol--- switch to prednisone Incentive spirometry Chest x-ray negative for acute process. DVT prophylaxis Subcutaneous heparin Monitor vital signs and labs Labs and medication were reviewed. Continue same treatment. Further recommendations as per clinical course of the patient PHYSICAL EXAMINATION: GENERAL: The patient is A&O x3, NAD HEENT: EOMI, Sclerae anicteric, Moist Mucous membranes Neck: Supple, Non tender, No JVD PULMONARY: Equal breath souds B/L, No wheezing, No crackles. CARDIOVASCULAR: S1, S2 present. No murmurs, rubs, or gallops. ABDOMEN: Soft, nontender, nondistended, normoactive bowel sounds. No guarding or rebound tenderness. MUSCULOSKELETAL: No edema, No cyanosis. No clubbing. Normal ROM. Intact peripheral pulses. EXTREMITIES: No cyanosis, clubbing, or pedal edema. NEUROLOGICAL: CN 2-12 grossly intact. No FND Skin: No Rash REVIEW OF SYSTEMS: CONSTITUTIONAL: No fever or chills. CARDIOVASCULAR: No chest pain, palpitations or syncope. PULMONARY: No shortness of breath, no cough, sore throat. GASTROINTESTINAL: No nausea, vomiting, diarrhea, abdominal pain. : No Dysuria, urgency, frequency. Extremities: No edema. NEUROLOGICAL: No headaches, no weakness, or numbness Dictation was produced using [employer] dictation software. please excuse any grammatical, word or spelling errors. Objective - Vital Signs Vital signs: Vital Signs Temp 97.9 F 03/25/24 08:00 Pulse 54 L 03/25/24 08:00 Resp 18 03/25/24 08:00 BP 160/77 03/25/24 08:00 Pulse Ox 97 03/25/24 08:00 FiO2 Intake & Output 03/24/24 03/25/24 03/25/24 18:59 06:59 18:59 Intake Total 120 Balance 120 Intake: Oral 120 Other: Voiding Method Diaper Toilet Toilet Incontinent Diaper Diaper # Voids 1 1 2 # Bowel Movements 1 - Labs CBC & Chem 7: 03/24/24 05:58 03/24/24 05:58
--- NOTE | 2024-03-25 16:22 | CDI ---
Documentation Clarification Form Date: 03/25/2024 04:10:11 PM From: Lorie Bravo RN CCDS Phone: [phone] Admit Date: 03/22/2024 06:18:00 PM Patient Name: Meredith Massey Visit Number: [id number] Discharge Date: ATTENTION: The Clinical Documentation Specialists (CDI) and [facility] Coding Staff appreciate your assistance in clarifying documentation. Please respond to the clarification below the line at the bottom and electronically sign. The CDI & [facility] Coding staff will review the response and follow-up if needed. Please note: Queries are made part of the Legal Health Record. If you have any questions, please contact the author of this message via ITS. Dr. Bernstein Your patient has COPD on 3L oxygen at baseline, 03/25, Medicine note. Based on this information and the findings below, is there an additional diagnosis that is clinically appropriate for this patient? History/Risk Factors: 74 year old female presented to the ED for evaluation of mental status and generalized weakness, shortness of breath and low oxygen levels. Medical History: COPD on 3L oxygen at baseline, hx of ESBL UTI and recent right pneumothorax. 03/23, [place] Home oxygen: 3L nasal cannula Clinical Indicators: Vital signs, 03/22: B/P 186/106 HR 88 Temp 97.5 F RR 18 SpO2 93% 2L nasal cannula CXR, 03/22: No acute pulmonary process. COPD Lung/Breathing assessment, 03/25: Equal breath sounds B/L, No wheezing, No crackles. Treatment:2L to 2.5L nasal cannula Breathing tx: 03/24 Duoneb QID PRN, 03/23 Symbicort BID; 03/23 Solumedrol IV x 1; 03/23 03/25 Solumedrol IV; Is there an additional diagnosis that is clinically appropriate for this patient? [ x ] Chronic Respiratory Failure [ ] No additional diagnosis/not clinically significant [ ] Other Diagnosis, please specify [ ] Unable to determine (Template Last Revised: July 2023) MTDD
[2024-03-25] MEDS: amLODIPine 5 MG TAB PO SCH (17:10)
[2024-03-26] MEDS: predniSONE 20 MG TAB PO SCH (08:40)
--- NOTE | 2024-03-26 09:06 | P.PN ---
Subjective Progress Note Date: 03/24/24 Principal diagnosis: Reason for follow-up is a urinary tract infection Patient is a 74-year-old female past medical history of COPD hypertension UTI pneumothorax patient has been brought into the hospital for evaluation of mental status changes that apparently has been going on for a day or 2 before presentation to the hospital was also complains of more abdominal pa in did have a positive UA concerning for symptomatic UTI. On today's evaluation that is 03/24/2024, Patient is afebrile this morning patient denies having any chest pain or any worsening cough, the patient is breathing comfortably on 2 L nasal cannula oxygen, patient denies any abdominal pain no diarrhea no nausea no vomiting Patient white count 6.7, creatinine 0.6 Objective - Vital Signs Vital signs: Vital Signs Temp 98.2 F 03/24/24 07:19 Pulse 61 03/24/24 07:19 Resp 18 03/24/24 07:19 BP 126/65 03/24/24 07:19 Pulse Ox 93 L 03/24/24 07:19 FiO2 Intake & Output 03/23/24 03/24/24 03/24/24 18:59 06:59 18:59 Intake Total 650 Balance 650 Intake: Intake, IV Titration 650 Amount Ertapenem 1 gm In Sodium 50 Chloride 0.9% 50 ml @ 100 mls/hr IVPB DAILY [facility] Rx #:[id number] Sodium Chloride 0.9% 1, 600 000 ml @ 75 mls/hr IV . [id number] [facility] Rx#:[id number] Other: # Voids 3 1 # Bowel Movements 1 - Exam GENERAL DESCRIPTION: An elderly female lying in bed in no distress RESPIRATORY SYSTEM: Unlabored breathing , decreased breath sounds at bases HEART: S1 S2 regular rate and rhythm , ABDOMEN: Soft , no tenderness EXTREMITIES: No edema feet - Labs CBC & Chem 7: 03/24/24 05:58 03/24/24 05:58 Labs: Abnormal Lab Results - Last 24 Hours (Table) 03/24/24 03/24/24 Range/Units 05:58 05:58 RBC 4.02 L (4.10-5.20) X 10*6/uL Hgb 10.8 L (12.0-15.0) g/dL Hct 34.4 L (37.2-46.3) % MCH 26.9 L (27.0-32.0) pg MCHC 31.4 L (32.0-37.0) g/dL Monocytes # 0.09 L (0.20-1.00) X 10*3/uL Eosinophils # 0 L (0.04-0.35) X 10*3/uL BUN/Creatinine Ratio 35.17 H (12.00-20.00) Ratio Glucose 153 H (70-110) mg/dL Calcium 8.5 L (8.7-10.3) mg/dL Microbiology - Last 24 Hours (Table) 03/22/24 17:30 Urine Culture - Final Urine,Clean Catch Assessment and Plan (1) UTI (urinary tract infection) Current Visit: Yes Status: Acute Code(s): N39.0 - URINARY TRACT INFECTION, SITE NOT SPECIFIED SNOMED Code(s): 90653483 Plan: 1patient presents hospital mental status changes lower abdominal pain in this patient who did have significantly positive UA concerning for a symptomatic UTI with recent urine culture positive for ESBL E. coli 2-patient to continue with Invanz 1 g keeping in mind her history of ESBL E. coli UTI while waiting for the culture to finalize Dictation was produced using [employer] dictation software. please excuse any grammatical, word or spelling errors. Time with Patient: Less than 30
--- NOTE | 2024-03-26 09:07 | P.PN ---
Subjective Progress Note Date: 03/25/24 Principal diagnosis: Reason for follow-up is a urinary tract infection Patient is a 74-year-old female past medical history of COPD hypertension UTI pneumothorax patient has been brought into the hospital for evaluation of mental status changes that apparently has been going on for a day or 2 before presentation to the hospital was also complains of more abdominal pa in did have a positive UA concerning for symptomatic UTI. On today's evaluation that is 03/25/2024,the patient denies any fever or any chills, patient is breathing comfortably on 2 L nasal cannula oxygen, the patient denies chest pain shortness of breath and no significant cough, patient denies abdominal pain, no nausea vomiting or diarrhea. No new lab has been obtained today urine culture have been negative so far Objective - Vital Signs Vital signs: Vital Signs Temp 97.9 F 03/25/24 08:00 Pulse 54 L 03/25/24 08:00 Resp 18 03/25/24 08:00 BP 160/77 03/25/24 08:00 Pulse Ox 97 03/25/24 08:00 FiO2 Intake & Output 03/24/24 03/25/24 03/25/24 18:59 06:59 18:59 Intake Total 120 Balance 120 Intake: Oral 120 Other: Voiding Method Diaper Toilet Toilet Incontinent Diaper Diaper # Voids 1 1 2 # Bowel Movements 1 - Exam GENERAL DESCRIPTION: An elderly female lying in bed in no distress RESPIRATORY SYSTEM: Unlabored breathing , decreased breath sounds at bases HEART: S1 S2 regular rate and rhythm , ABDOMEN: Soft , no tenderness EXTREMITIES: No edema feet - Labs CBC & Chem 7: 03/24/24 05:58 03/24/24 05:58 Assessment and Plan (1) UTI (urinary tract infection) Current Visit: Yes Status: Acute Code(s): N39.0 - URINARY TRACT INFECTION, SITE NOT SPECIFIED SNOMED Code(s): 82940333 Plan: 1patient presents hospital mental status changes lower abdominal pain in this patient who did have significantly positive UA concerning for a symptomatic UTI with recent urine culture positive for ESBL E. coli 2-patient to continue with Invanz 1 g keeping in mind her history of ESBL E. coli UTI however cultures are negative so far at the remains to be negative by tomorrow we will discontinue Invanz Dictation was produced using [employer] dictation software. please excuse any grammatical, word or spelling errors. Time with Patient: Less than 30
--- NOTE | 2024-03-26 11:39 | P.PN ---
Subjective 74-year-old female with past medical history significant for COPD on 3 L oxygen at baseline, history of ESBL UTI, history of recent right pneumothorax who presented to ER for evaluation of altered mental status and generalized weakness, shortness of breath and low oxygen levels. Patient is a poor historian, currently alert and oriented x 2-3, reported that she lives at home with son. Patient complaining of lower abdominal discomfort, was unable to tell if she had dysuria urgency or frequency. Patient is hard of feeling. Patient complained of generalized weakness and fatigue, denied any fever or chills. Patient complains of shortness of breath and productive coughwhich is unchanged. Patient denied any headache, vision changes, sore throat, chest pain, palpitations, nausea vomiting diarrhea constipation. Patient is afebrile, heart rate 67, respiratory rate 18, blood pressure 152/80, saturating 94% on 2 L. WBCs 3.3, hemoglobin 12.0, platelet 346. Sodium 134, potassium 4.1, BUN 21, creatinine 0.58. UA positive for large leukocyte Estrace, WBC 75. Chest x-ray negative for acute process, showed COPD changes. 03/24/2024atient was seen and examined today. Patient is more alert and oriented today, hard of hearing. Patient remains on ertapenem for UTI. Infectious disease following. PT/OT consulted awaiting evaluation. Patient remained afebrile, heart rate 67, respiratory rate 16, blood pressure 146/80, saturating 97% on 2 L. WBC 6.7, hemoglobin 10.8, platelets 344. BMP unremarkable. Urine culture contaminated. 03/25/2024/patient was seen and examined today. Patient is hard of hearing, otherwise alert and oriented. Remains on ertapenem for UTI, infectious disease following. PT/OT consulted. Patient remained afebrile, vital stable. Blood pressure elevated. Add Norvasc., Will switch Solu-Medrol to prednisone oral. Saturating 93% 2 L. 03/26 Patient UTI signs and symptoms improved while on IV antibiotic. She is asymptomatic today Her urine culture is negative, has history of ESBL E. coli. On ertapenem Per ID team No evidence of COPD today. She was not on steroids at home. Will lower the prednisone 40 mg down to 20 mg with plan to quick taper to discontinuation Patient medically stable pending prior authorization to go to subacute rehab Objective - Vital Signs Vital signs: Vital Signs Temp 97.7 F 03/26/24 07:22 Pulse 63 03/26/24 07:22 Resp 17 03/26/24 07:22 BP 136/74 03/26/24 07:22 Pulse Ox 97 03/26/24 07:22 FiO2 Intake & Output 03/25/24 03/26/24 03/26/24 18:59 06:59 18:59 Intake Total 120 Balance 120 Intake: Oral 120 Other: Voiding Method Toilet Diaper Diaper Diaper # Voids 3 1 - Exam -GENERAL: The patient is alert and oriented x3, not in any acute distress. Well developed, well nourished. Frail HEENT: Pupils are round and equally reacting to light. EOMI. No scleral icterus. No conjunctival pallor. Normocephalic, atraumatic. No pharyngeal erythema. No thyromegaly. CARDIOVASCULAR: S1 and S2 present. No murmurs, rubs, or gallops. PULMONARY: Chest is clear to auscultation, no wheezing , no crackles. ABDOMEN: Soft, nontender, nondistended, normoactive bowel sounds. No palpable organomegaly. MUSCULOSKELETAL: No joint swelling or deformity. EXTREMITIES: No cyanosis, clubbing, or pedal edema. NEUROLOGICAL: Gross neurological examination did not reveal any focal deficits. SKIN: No rashes. no petechiae. - Labs CBC & Chem 7: 03/24/24 05:58 03/24/24 05:58 Assessment and Plan Assessment: Acute urinary tract infection, history of recent ESBL E. coli UTI. Generalized weakness secondary to above Mild leukocytosis Hypertension COPD, no acute exacerbation Plan: Continue with antibiotic per ID team Taper of prednisone pending authorization to go to subacute rehab GI and DVT prophylaxis Prognosis is guarded
--- NOTE | 2024-03-26 12:51 | P.PN ---
Subjective Progress Note Date: 03/26/24 Principal diagnosis: Reason for follow-up is a urinary tract infection Patient is a 74-year-old female past medical history of COPD hypertension UTI pneumothorax patient has been brought into the hospital for evaluation of mental status changes that apparently has been going on for a day or 2 before presentation to the hospital was also complains of more abdominal pa in did have a positive UA concerning for symptomatic UTI. On today's evaluation that is 03/26/2024,the patient remains to be afebrile, patient is on 2 L nasal cannula supplemental oxygen and denies any shortness of breath no chest pain or cough.Patient denies having any nausea or vomiting, no abdominal pain and no diarrhea has been reported, patient complaining of feeling weak. Patient white normal 6.7, creatinine 0.6 urine culture has been negative Objective - Vital Signs Vital signs: Vital Signs Temp 97.7 F 03/26/24 07:22 Pulse 63 03/26/24 07:22 Resp 17 03/26/24 07:22 BP 136/74 03/26/24 07:22 Pulse Ox 97 03/26/24 07:22 FiO2 Intake & Output 03/25/24 03/26/24 03/26/24 18:59 06:59 18:59 Intake Total 120 Balance 120 Intake: Oral 120 Other: Voiding Method Toilet Diaper Diaper # Voids 3 1 - Exam GENERAL DESCRIPTION: An elderly female lying in bed in no distress RESPIRATORY SYSTEM: Unlabored breathing , decreased breath sounds at bases HEART: S1 S2 regular rate and rhythm , ABDOMEN: Soft , no tenderness EXTREMITIES: No edema feet - Labs CBC & Chem 7: 03/24/24 05:58 03/24/24 05:58 Assessment and Plan (1) UTI (urinary tract infection) Current Visit: Yes Status: Acute Code(s): N39.0 - URINARY TRACT INFECTION, SITE NOT SPECIFIED SNOMED Code(s): 77510440 Plan: 1patient presents hospital mental status changes lower abdominal pain in this patient who did have significantly positive UA concerning for a symptomatic UTI with recent urine culture positive for ESBL E. coli 2-patient has shown clinical improvement has received about 3 days of IV Invanz should be more than enough for cystitis clinically behaving as a deep infection we will discontinue Invanz and monitor closely off antibiotic Dictation was produced using [employer] dictation software. please excuse any grammatical, word or spelling errors. Time with Patient: Less than 30
[2024-03-27] MEDS: predniSONE 20 MG TAB PO SCH (09:06)
--- NOTE | 2024-03-27 09:34 | P.PN ---
Subjective 74-year-old female with past medical history significant for COPD on 3 L oxygen at baseline, history of ESBL UTI, history of recent right pneumothorax who presented to ER for evaluation of altered mental status and generalized weakness, shortness of breath and low oxygen levels. Patient is a poor historian, currently alert and oriented x 2-3, reported that she lives at home with son. Patient complaining of lower abdominal discomfort, was unable to tell if she had dysuria urgency or frequency. Patient is hard of feeling. Patient complained of generalized weakness and fatigue, denied any fever or chills. Patient complains of shortness of breath and productive coughwhich is unchanged. Patient denied any headache, vision changes, sore throat, chest pain, palpitations, nausea vomiting diarrhea constipation. Patient is afebrile, heart rate 67, respiratory rate 18, blood pressure 152/80, saturating 94% on 2 L. WBCs 3.3, hemoglobin 12.0, platelet 346. Sodium 134, potassium 4.1, BUN 21, creatinine 0.58. UA positive for large leukocyte Estrace, WBC 75. Chest x-ray negative for acute process, showed COPD changes. 03/24/2024atient was seen and examined today. Patient is more alert and oriented today, hard of hearing. Patient remains on ertapenem for UTI. Infectious disease following. PT/OT consulted awaiting evaluation. Patient remained afebrile, heart rate 67, respiratory rate 16, blood pressure 146/80, saturating 97% on 2 L. WBC 6.7, hemoglobin 10.8, platelets 344. BMP unremarkable. Urine culture contaminated. 03/25/2024/patient was seen and examined today. Patient is hard of hearing, otherwise alert and oriented. Remains on ertapenem for UTI, infectious disease following. PT/OT consulted. Patient remained afebrile, vital stable. Blood pressure elevated. Add Norvasc., Will switch Solu-Medrol to prednisone oral. Saturating 93% 2 L. 03/26 Patient UTI signs and symptoms improved while on IV antibiotic. She is asymptomatic today Her urine culture is negative, has history of ESBL E. coli. On ertapenem Per ID team No evidence of COPD today. She was not on steroids at home. Will lower the prednisone 40 mg down to 20 mg with plan to quick taper to discontinuation Patient medically stable pending prior authorization to go to subacute rehab 12/25 Patient feels fine. She is pending prior authorization for placement to [facility] She finished her UTI treatment and Invanz discontinued as per ID team Prednisone can be discontinued today as well. Vitals look stable Objective - Vital Signs Vital signs: Vital Signs Temp 98.5 F 03/27/24 07:42 Pulse 65 03/27/24 07:42 Resp 15 03/27/24 07:42 BP 146/72 03/27/24 07:42 Pulse Ox 98 03/27/24 07:42 FiO2 Intake & Output 03/26/24 03/27/24 03/27/24 18:59 06:59 18:59 Other: Voiding Method Diaper Diaper # Voids 1 1 - Exam -GENERAL: The patient is alert and oriented x3, not in any acute distress. Well developed, well nourished. Frail HEENT: Pupils are round and equally reacting to light. EOMI. No scleral icterus. No conjunctival pallor. Normocephalic, atraumatic. No pharyngeal erythema. No thyromegaly. CARDIOVASCULAR: S1 and S2 present. No murmurs, rubs, or gallops. PULMONARY: Chest is clear to auscultation, no wheezing , no crackles. ABDOMEN: Soft, nontender, nondistended, normoactive bowel sounds. No palpable organomegaly. MUSCULOSKELETAL: No joint swelling or deformity. EXTREMITIES: No cyanosis, clubbing, or pedal edema. NEUROLOGICAL: Gross neurological examination did not reveal any focal deficits. SKIN: No rashes. no petechiae. - Labs CBC & Chem 7: 03/24/24 05:58 03/24/24 05:58 Assessment and Plan Assessment: Acute urinary tract infection, history of recent ESBL E. coli UTI. Generalized weakness secondary to above Mild leukocytosis Hypertension COPD, no acute exacerbation Plan: Finish her advance antibiotic per ID team Discontinue prednisone pending authorization to go to subacute rehab GI and DVT prophylaxis Prognosis is guarded
[2024-03-27 13:11] VITALS: BP 127/74; PULSE 63; RESP 17; TEMP 97.6
[2024-03-27] MEDS: HYDROcodone/APAP 5-325MG 1 EACH TAB PO PRN (13:26)
--- NOTE | 2024-03-27 15:48 | P.PN ---
Subjective Progress Note Date: 03/27/24 Principal diagnosis: Reason for follow-up is a urinary tract infection Patient is a 74-year-old female past medical history of COPD hypertension UTI pneumothorax patient has been brought into the hospital for evaluation of mental status changes that apparently has been going on for a day or 2 before presentation to the hospital was also complains of more abdominal pa in did have a positive UA concerning for symptomatic UTI. On today's evaluation that is 03/27/2024, the patient continues to be afebrile, the patient is on 2 L nasal cannula oxygen and breathing comfortably, the Pt denies having any chest pain or cough, the patient denies having any abdominal pain no vomiting or any diarrhea has been reported by the nursing staff. Patient did not have any lab draw today culture has been negative Objective - Vital Signs Vital signs: Vital Signs Temp 97.6 F 03/27/24 12:37 Pulse 63 03/27/24 12:37 Resp 17 03/27/24 12:37 BP 127/74 03/27/24 12:37 Pulse Ox 97 03/27/24 12:37 FiO2 Intake & Output 03/26/24 03/27/24 03/27/24 18:59 06:59 18:59 Other: Voiding Method Diaper Diaper Diaper # Voids 1 1 1 - Exam GENERAL DESCRIPTION: An elderly female lying in bed in no distress RESPIRATORY SYSTEM: Unlabored breathing , decreased breath sounds at bases HEART: S1 S2 regular rate and rhythm , ABDOMEN: Soft , no tenderness EXTREMITIES: No edema feet - Labs CBC & Chem 7: 03/24/24 05:58 03/24/24 05:58 Assessment and Plan (1) UTI (urinary tract infection) Current Visit: Yes Status: Acute Code(s): N39.0 - URINARY TRACT INFECTION, SITE NOT SPECIFIED SNOMED Code(s): 65852512 Plan: 1patient presents hospital mental status changes lower abdominal pain in this patient who did have significantly positive UA concerning for a symptomatic UTI with recent urine culture positive for ESBL E. coli 2-patient has shown clinical improvement has received about 3 days of IV Invanz should be more than enough for cystitis, patient is currently being monitored closely off antibiotic therapy Dictation was produced using [employer] dictation software. please excuse any grammatical, word or spelling errors. Time with Patient: Less than 30
== END 2024-03-27 16:25 | DRG 689 ==
LOC: EC 17:09 → 4SSUR 18:18
PROVIDERS: ADMIT Hospitalist; ATTEND Hospitalist
DX: N39.0 Urinary tract infection, site not specified (principal); G93.41 Metabolic encephalopathy; J44.1 Chronic obstructive pulmonary disease with (acute) exacerbation; J96.11 Chronic respiratory failure with hypoxia; I10 Essential (primary) hypertension; H91.90 Unspecified hearing loss, unspecified ear; F41.9 Anxiety disorder, unspecified; F32.A Depression, unspecified; F17.200 Nicotine dependence, unspecified, uncomplicated; E86.0 Dehydration; Z99.81 Dependence on supplemental oxygen; Z79.899 Other long term (current) drug therapy; Z87.440 Personal history of urinary (tract) infections
CPT/HCPCS: 36415; 71046; 80048; 80053; 81001; 82140; 83605; 83735; 83880; 84100; 84484; 85025; 85610; 85730; 87086; 93005; 94640; 96365; 96375; 99291

== ENCOUNTER 2024-06-18 14:25 | Observation (INO) | payer MEDICARE ==
--- NOTE | 2024-06-18 14:37 | ED ---
SOB HPI - General Stated Complaint: SOB Time Seen by Provider: 06/18/24 14:31 Source: RN notes reviewed, old records reviewed Mode of arrival: ambulatory Limitations: no limitations - History of Present Illness Initial Comments: This is a 74-year-old female to the ER for evaluation today. This patient presents today for evaluation regards to shortness of breath severe shortness of breath weakness and low oxygen levels MD Complaint: shortness of breath, cough, "asthma attack", anxiety -: hour(s) Severity: severe Severity scale (1-10): 10 Consistency: constant Improves With: oxygen, rest Worsens With: nothing Known History Of: COPD Context: recent URI, anxiety, recent illness Associated Symptoms: denies other symptoms - Related Data Home Medications Medication Instructions Recorded Confirmed Acetaminophen [Tylenol] 650 mg PO Q6H PRN 01/17/24 06/18/24 Cholecalciferol [Vitamin D3 (25 50 mcg PO DAILY 01/17/24 06/18/24 Mcg = 1000 Iu)] Fluticasone Propion/Salmeterol 1 puff INHALATION RT-BID 01/17/24 06/18/24 [Fluticasone-Salmeterol 250-50] Ipratropium-Albuterol Nebulize 3 ml INHALATION RT-Q4H 01/17/24 06/18/24 [Duoneb 0.5 mg-3 mg/3 ml Soln] Omeprazole [PriLOSEC] 20 mg PO DAILY 06/18/24 06/18/24 Vit C/E/Zn/Coppr/Lutein/Zeaxan 1 cap PO DAILY 06/18/24 06/18/24 [Preservision Areds 2 Softgel] Previous Rx's Medication Instructions Recorded Folic Acid 1 mg PO DAILY #30 tablet 12/25/23 Multivitamins, Thera [Multivitamin 1 tab PO DAILY #30 tablet 12/25/23 (formulary)] ALPRAZolam [Xanax] 0.25 mg PO BID PRN #6 tab 06/20/24 Amoxic-Pot Clav 875-125Mg 1 tab PO Q12HR 2 Days #5 tab 06/20/24 [Augmentin 875-125] Nystatin 100,000 Unit/ml Susp 3,000,000 unit PO TID #0 ml 06/20/24 [Mycostatin Oral Susp] predniSONE See Taper PO DIRECTED 12 Days 06/20/24 #30 tab Allergies Allergy/AdvReac Type Severity Reaction Status Date / Time No Known Allergies Allergy Verified 06/18/24 15:22 Review of Systems ROS Statement: Those systems with pertinent positive or pertinent negative responses have been documented in the HPI. ROS Other: All systems not noted in ROS Statement are negative. Past Medical History Past Medical History: COPD, Hypertension Additional Past Medical History / Comment(s): [place] History of Any Multi-Drug Resistant Organisms: None Reported Date of last positivie culture/infection: 01/18/24 MDRO Source:: URINE Past Surgical History: Section Additional Past Surgical History / Comment(s): vain stripping left leg Past Anesthesia/Blood Transfusion Reactions: No Reported Reaction Past Psychological History: Anxiety, Depression Smoking Status: Current every day smoker Past Alcohol Use History: None Reported Past Drug Use History: None Reported - Past Family History Mother Family Medical History: No Reported History Additional Family Medical History / Comment(s): at 80 years old of old age. Father Family Medical History: No Reported History Additional Family Medical History / Comment(s): at 85 years old of old age. General Exam General appearance: alert, anxious, in distress, cachectic Head exam: Present: atraumatic, normocephalic, normal inspection Eye exam: Present: normal appearance, PERRL, EOMI. Absent: scleral icterus, conjunctival injection, periorbital swelling ENT exam: Present: normal exam, mucous membranes moist Neck exam: Present: normal inspection. Absent: tenderness, meningismus, lymphadenopathy Respiratory exam: Present: respiratory distress, wheezes, accessory muscle use, decreased breath sounds, prolonged expiratory. Absent: rales, rhonchi, stridor Cardiovascular Exam: Present: regular rate, normal rhythm, normal heart sounds. Absent: systolic murmur, diastolic murmur, rubs, gallop, clicks GI/Abdominal exam: Present: soft, normal bowel sounds. Absent: distended, tenderness, guarding, rebound, rigid Extremities exam: Present: normal inspection, full ROM, normal capillary refill. Absent: tenderness, pedal edema, joint swelling, calf tenderness Back exam: Present: normal inspection Neurological exam: Present: alert, oriented X3, CN II-XII intact Psychiatric exam: Present: normal affect, normal mood Skin exam: Present: warm, dry, intact, normal color. Absent: rash Course Vital Signs 06/18/24 06/18/24 06/18/24 14:31 14:54 15:03 Temperature 97.5 F L Pulse Rate 88 87 Respiratory 24 22 18 Rate Blood Pressure O2 Sat by Pulse 93 L Oximetry 06/18/24 06/18/24 06/18/24 16:57 18:10 19:04 Temperature 97.7 F Pulse Rate 77 86 Respiratory 20 20 18 Rate Blood Pressure 147/74 144/86 121/92 O2 Sat by Pulse 95 94 L Oximetry 06/18/24 06/18/24 06/18/24 20:19 20:33 22:00 Temperature Pulse Rate 81 90 97 Respiratory 18 Rate Blood Pressure 126/71 O2 Sat by Pulse 97 Oximetry 06/19/24 06/19/24 06/19/24 00:00 02:00 06:42 Temperature 97.7 F Pulse Rate 71 70 71 Respiratory 16 16 22 Rate Blood Pressure 130/65 131/69 143/77 O2 Sat by Pulse 100 100 92 L Oximetry 06/19/24 06/19/24 06/19/24 08:00 08:11 09:00 Temperature 98.7 F Pulse Rate 72 93 Respiratory 20 19 Rate Blood Pressure 160/86 154/82 O2 Sat by Pulse 93 L 95 99 Oximetry 06/19/24 06/19/24 06/19/24 11:26 15:15 16:39 Temperature Pulse Rate 71 97 63 Respiratory 18 20 19 Rate Blood Pressure 146/82 124/77 124/77 O2 Sat by Pulse 95 97 97 Oximetry - Reevaluation(s) Reevaluation #1: 06/18/24 16:10 Medical records reviewed Reevaluation #2: 06/18/24 16:10 Patient symptoms unchanged with improved with supplemental O2 Reevaluation #3: 06/18/24 16:10 Informed of results and questions answered Reevaluation #4: Was pt. sent in by a medical professional or institution (, PA, BACK STAYER, urgent care, hospital, or halfway...) When possible be specific @ -no Did you speak to anyone other than the patient for history (EMS, parent, family, police, friend...)? What history was obtained from this source @ -no Did you review nursing and triage notes (agree or disagree)? Why? @ -agree Are old charts reviewed (outside hosp., previous admission, EMS record, old EKG, old radiological studies, urgent care reports/EKG's, halfway records)? Report findings @ -yes Differential Diagnosis (chest pain, altered mental status, abdominal pain women, abdominal pain men, vaginal bleeding, weakness, fever, dyspnea, syncope, headache, dizziness, GI bleed, back pain, seizure, CVA, palpatations, mental health, musculoskeletal)? @ -prior EKG interpreted by me (3pts min.). @ -yes X-rays interpreted by me (1pt min.). @ -yes negative for acute disease CT interpreted by me (1pt min.). @ -no U/S interpreted by me (1pt. min.). @ -no What testing was considered but not performed or refused? (CT, X-rays, U/S, labs)? Why? @ -none What meds were considered but not given or refused? Why? @ -none Did you discuss the management of the patient with other professionals (professionals i.e. , PA, BACK STAYER, lab, RT, psych nurse, health care social worker, seasonal greenery bundler, teacher, chief accounting officer, family service caseworker)? Give summary @ -no Was smoking cessation discussed for >3mins.? @ -no Was critical care preformed (if so, how long)? @ -yes31 Were there social determinants of health that impacted care today? How? (Homelessness, low income, unemployed, alcoholism, drug addiction, transportation, low edu. Level, literacy, decrease access to med. care, half-way, rehab)? @ -none Was there de-escalation of care discussed even if they declined (Discuss DNR or withdrawal of care, Hospice)? DNR status @ -no What co-morbidities impacted this encounter? (DM, HTN, Smoking, COPD, CAD, Cancer, CVA, ARF, Chemo, Hep., AIDS, mental health diagnosis, sleep apnea, morb id obesity)? @ -none Was patient admitted / discharged? Hospital course, mention meds given and rou te, prescriptions, significant lab abnormalities, going to OR and other pertinent info. @ - 74 female to ER for severe COPD exacerbation with hypoxia. Patient will admit for monitoring of respiratory failure Admit Undiagnosed new problem with uncertain prognosis? @ -no Drug Therapy requiring intensive monitoring for toxicity (Heparin, Nitro, Insulin, Cardizem)? @ -no Were any procedures done? @ -no Diagnosis/symptom? @ -acute respiratory failure COPD and hypoxia Acute, or Chronic, or Acute on Chronic? @ -Acute Uncomplicated (without systemic symptoms) or Complicated (systemic symptoms)? @ -Complicated Side effects of treatment? @ -no Exacerbation, Progression, or Severe Exacerbation? @ -exacerbation Poses a threat to life or bodily function? How? (Chest pain, [place], [place], pneumonia, PE, COPD, DKA, ARF, appy, cholecystitis, CVA, Diverticulitis, Homicidal, Suicidal, threat to staff... and all critical care pts) @ -yes yes with respiratory Reevaluation #5: Differential Dyspnea: Coronary syndrome, arrhythmia, tamponade, asthma, COPD, pulmonary embolism, pneumonia, pneumothorax, pulmonary effusion, anaphylaxis, diabetic ketoacidosis, flailed chest, pulmonary contusion, diaphragmatic rupture, anemia, neuromuscular, this is not meant to be an all-inclusive list. - Consultations Consultation #1: Spoke with many physicians who agreed to admit this patient Medical Decision Making - Medical Decision Making 74 female to ER for severe COPD exacerbation with hypoxia. Patient will admit for monitoring of respiratory failure - Lab Data Result diagrams: 06/20/24 03:17 06/20/24 03:17 Lab Results 06/18/24 06/18/24 06/18/24 Range/Units 15:33 15:33 15:33 WBC 7.7 (3.8-10.6) k/uL RBC 3.91 (3.80-5.40) m/uL Hgb 10.5 L (11.4-16.0) gm/dL Hct 33.6 L (34.0-46.0) % MCV 85.8 (80.0-100.0) fL MCH 26.8 (25.0-35.0) pg MCHC 31.3 (31.0-37.0) g/dL RDW 16.7 H (11.5-15.5) % Plt Count 314 (150-450) k/uL MPV 7.0 Neutrophils % 76 % Lymphocytes % 18 % Monocytes % 4 % Eosinophils % 1 % Basophils % 0 % Neutrophils # 5.9 (1.3-7.7) k/uL Lymphocytes # 1.4 (1.0-4.8) k/uL Monocytes # 0.3 (0-1.0) k/uL Eosinophils # 0.1 (0-0.7) k/uL Basophils # 0.0 (0-0.2) k/uL Hypochromasia Slight Anisocytosis Slight PT 10.6 (10.0-12.5) sec INR 0.9 (<1.2) APTT 19.2 L (22.0-30.0) sec Sodium 138 (137-145) mmol/L Potassium 4.0 (3.5-5.1) mmol/L Chloride 103 (98-107) mmol/L Carbon Dioxide 25 (22-30) mmol/L Anion Gap 10 mmol/L BUN 18 H (7-17) mg/dL Creatinine 0.58 (0.52-1.04) mg/dL Est GFR (CKD-EPI)AfAm >90 (>60 ml/min/1.73 sqM) Est GFR (CKD-EPI)NonAf >90 (>60 ml/min/1.73 sqM) Glucose 81 (74-99) mg/dL Plasma Lactic Acid [place] (0.7-2.0) mmol/L Calcium 9.4 (8.4-10.2) mg/dL Magnesium 1.8 (1.6-2.3) mg/dL Total Bilirubin 0.3 (0.2-1.3) mg/dL AST 20 (14-36) U/L ALT 9 (4-34) U/L Alkaline Phosphatase 88 (38-126) U/L Troponin I (0.000-0.034) ng/mL NT-Pro-B Natriuret Pep 677 pg/mL Total Protein 6.4 (6.3-8.2) g/dL Albumin 3.4 L (3.5-5.0) g/dL 06/18/24 06/18/24 Range/Units 15:33 15:33 WBC (3.8-10.6) k/uL RBC (3.80-5.40) m/uL Hgb (11.4-16.0) gm/dL Hct (34.0-46.0) % MCV (80.0-100.0) fL MCH (25.0-35.0) pg MCHC (31.0-37.0) g/dL RDW (11.5-15.5) % Plt Count (150-450) k/uL MPV Neutrophils % % Lymphocytes % % Monocytes % % Eosinophils % % Basophils % % Neutrophils # (1.3-7.7) k/uL Lymphocytes # (1.0-4.8) k/uL Monocytes # (0-1.0) k/uL Eosinophils # (0-0.7) k/uL Basophils # (0-0.2) k/uL Hypochromasia Anisocytosis PT (10.0-12.5) sec INR (<1.2) APTT (22.0-30.0) sec Sodium (137-145) mmol/L Potassium (3.5-5.1) mmol/L Chloride (98-107) mmol/L Carbon Dioxide (22-30) mmol/L Anion Gap mmol/L BUN (7-17) mg/dL Creatinine (0.52-1.04) mg/dL Est GFR (CKD-EPI)AfAm (>60 ml/min/1.73 sqM) Est GFR (CKD-EPI)NonAf (>60 ml/min/1.73 sqM) Glucose (74-99) mg/dL Plasma Lactic Acid [place] 1.1 (0.7-2.0) mmol/L Calcium (8.4-10.2) mg/dL Magnesium (1.6-2.3) mg/dL Total Bilirubin (0.2-1.3) mg/dL AST (14-36) U/L ALT (4-34) U/L Alkaline Phosphatase (38-126) U/L Troponin I <0.012 (0.000-0.034) ng/mL NT-Pro-B Natriuret Pep pg/mL Total Protein (6.3-8.2) g/dL Albumin (3.5-5.0) g/dL - EKG Data -: EKG Interpreted by Me (EKG sinus 86 WV 158 QRS 93 QTc 400) - Radiology Data Radiology results: report reviewed (CXR is positive for pneumonia), image reviewed Critical Care Time Critical Care Time: Yes Total Critical Care Time: 31 Disposition Clinical Impression: COPD (chronic obstructive pulmonary disease), Hypoxic respiratory failure, Acute exacerbation of chronic obstructive pulmonary disease Disposition: ADMITTED IP TO THIS HOSP Condition: Stable Is patient prescribed a controlled substance at d/c from ED?: No Time of Disposition: 16:00
[2024-06-18] MEDS: IPRATROPIUM-ALBUTEROL 3 ML NEB INHALATION STA ×2 (14:54→17:27)
[2024-06-18] MEDS: SODIUM CHLORIDE 0.9% 500 ML 500 ML IV STA (15:40)
[2024-06-18] MEDS: methylPREDNISolone SOD SUCCI 125 MG/2 ML VIAL IV STA (15:40)
--- NOTE | 2024-06-18 15:44 | XR ---
EXAMINATION TYPE: XR chest 2V DATE OF EXAM: 06/18/2024 3:25 PM COMPARISON: Chest radiographs from 03/22/2024 CLINICAL INDICATION: Female, 74 years old with history of difficulty breathing; [facility] TECHNIQUE: XR chest 2V Frontal and lateral views of the chest. FINDINGS: Lungs/Pleura: new airspace opacities over the spine compared to 03/22/2024. There is no evidence of pl eural effusion, focal consolidation, or pneumothorax. Pulmonary vascularity: Unremarkable. Heart/mediastinum: Cardiomediastinal silhouette is unremarkable. Musculoskeletal: No acute osseous pathology. IMPRESSION: Increased airspace opacities projecting over the spine correlate for pneumonia. Correlate for aspirat ion. [facility], , 06/18/2024 3:42 PM
[2024-06-18 15:45] LABS: Anisocytosis Slight; Basophils % (A) 0 %; Eosinophils # (A) 0.1 k/uL (0-0.7); Eosinophils % (A) 1 %; HCT 33.6 % (34.0-46.0); HGB 10.5 gm/dL (11.4-16.0); Hypochromasia Slight; Lymphocytes # (A) 1.4 k/uL (1.0-4.8); Lymphocytes % (A) 18 %; MCH 26.8 pg (25.0-35.0); MCHC 31.3 g/dL (31.0-37.0); MCV 85.8 fL (80.0-100.0); Monocytes # (A) 0.3 k/uL (0-1.0); Monocytes % (A) 4 %; Neutrophils # (A) 5.9 k/uL (1.3-7.7); Neutrophils % (A) 76 %; Platelet Count 314 k/uL (150-450); RBC 3.91 m/uL (3.80-5.40); RDW 16.7 % (11.5-15.5); WBC 7.7 k/uL (3.8-10.6)
[2024-06-18 16:00] LABS: INR 0.9 (<1.2); Prothrombin Time 10.6 sec (10.0-12.5)
[2024-06-18] MEDS ORDERED: PNEUMONIA PROTOCOL UTILIZED 1 EACH MISC PO PRN (16:04)
[2024-06-18 16:06] LABS: Partial Thromboplastin Time 19.2 sec (22.0-30.0)
[2024-06-18 16:07] LABS: ALT 9 U/L (4-34); AST 20 U/L (14-36); African American GFR (CKD) >90 (>60 ml/min/1.73 sqM); Albumin 3.4 g/dL (3.5-5.0); Alkaline Phosphatase 88 U/L (38-126); Anion Gap 10 mmol/L; Blood Urea Nitrogen 18 mg/dL (7-17); Calcium 9.4 mg/dL (8.4-10.2); Carbon Dioxide 25 mmol/L (22-30); Chloride 103 mmol/L (98-107); Glucose 81 mg/dL (74-99); Magnesium 1.8 mg/dL (1.6-2.3); Non-African American GFR(CKD) >90 (>60 ml/min/1.73 sqM); Sodium 138 mmol/L (137-145); Total Bilirubin 0.3 mg/dL (0.2-1.3); Total Protein 6.4 g/dL (6.3-8.2)
[2024-06-18 16:15] LABS: NT-Pro-B-Type Natriuretic Pept 677 pg/mL
[2024-06-18] MEDS: LIDOCAINE VISCOUS 2% 15 ML CUP MUCOUS MEM ONE (16:17)
[2024-06-18] MEDS ORDERED: IPRATROPIUM-ALBUTEROL 3 ML NEB INHALATION PRN (16:37)
[2024-06-18] MEDS: SODIUM CHLORIDE 0.9% 1,000 ML IV STA (16:50)
[2024-06-18] MEDS: SODIUM CHLORIDE 0.9% 1,000 ML IV SCH (16:53)
[2024-06-18] MEDS ORDERED: NYSTATIN 100,000 UNIT/ML SUSP 500,000 UNIT/5 ML CUP PO SCH (18:00)
[2024-06-18] MEDS: AZITHROMYCIN 500 MG in SODIUM CHLORIDE 0.9% 250 ML IVPB STA (18:23)
[2024-06-18] MEDS: MAG HYDROX/AL HYDROX/SIMETH 30 ML, LIDOCAINE VISCOUS 2% 30 ML, diphenhydrAMINE ELIXIR 7... PO SCH (19:05)
--- NOTE | 2024-06-18 19:34 | P.HPIM ---
History of Present Illness H&P Date: 06/18/24 History of Presenting Illness: Patient is a very pleasant 74-year-old female who is a resident of [facility]. She has a past medical history of dementia, COPD home oxygen dependent on 3 L at all times, hypertension, GERD, and anxiety. She presented to the emergency department via EMS from [facility] secondary to increased shortness of breath and hypoxia. Per family at bedside, patient was diagnosed with COVID approximately 2 weeks ago and has since had progressively worsening shortness of breath. Patient has dementia and is a very poor historian. Family at bedside deny patient having any known recent fevers, difficulty swallowing or choking on food, or any other reported associated factors. They reports she was recently diagnosed with thrush and does complain of sore gums/mouth. Patient denies any difficulty swallowing and tolerating clear liquids at this time with no evidence of difficulties. Patient reports her mouth is sore and that she is always cold but her breathing feels "a bit better." She denies having any headache, lightheadedness, dizziness, chest pain, palpitations, productive cough, abdominal pain, nausea, vomiting, or experiencing any numbness/tingling/weakness/swelling in her extremities. Upon arrival to our facility, patient underwent evaluation of the emergency department. Vital signs upon arrival show blood pressure 147/74, heart rate 77, respiratory rate 24, temp 97.5 F, and SpO2 of 93% on 5 L O2. EKG completed with moderate interference showing sinus mechanism at 86 bpm no significantly noted T wave or ST abnormality showing no signs of acute ischemia upon personal review and interpretation. Chest x-ray completed showing increased airspace opacities concerning for pneumonia. Labs completed and reviewed. CBC showing microcytic anemia with hemoglobin of 10.5 (appears to be chronic and at baseline). Coagulation profile showing low PTT of 19.2 otherwise normal findings. BMP showing mild prerenal azotemia with BUN of 18 otherwise normal findings. Blood glucose 81. Lactic acid 1.1. Magnesium 1.8. Liver profile unremarkable. Troponin was negative at less than 0.012 and proBNP was 677. Albumin was low at 3.4. Influenza A, influenza B, and RSV were negative. COVID PCR was positive. Patient admitted under our services with consultation to pulmonology. Review of systems: Pertinent positives and negatives as discussed in HPI, a complete review of systems was performed and all other systems are negative. Physical exam: Vital signs reviewed and stable. General: Nontoxic, no distress and appears stated age. Thin and frail. Derm: Skin warm and dry, normal coloration for ethnicity. Head: Atraumatic, normocephalic and symmetric. Very hard of hearing. Eyes: EOM's intact, no lid lag, and anicteric sclera Mouth: mucus membranes moist, patient with erythema and small blister on left lateral tongue with small areas of white plaque Cardiovascular: regular rate and rhythm with normal S1S2, soft systolic murmur, positive posterior tibial pulses bilaterally, and cap refill < 2 seconds. Lungs: Respirations even, regular, and unlabored on 5L O2 via NC. Lungs diminished with diffuse rhonchi and soft expiratory wheezes.. Abdominal: soft, nontender to palpation, no guarding, no appreciable organomegaly Ext: ROM intact. No gross muscle atrophy, no edema, no contractures Neuro: Speech clear, face symmetrical and CN II-XII grossly intact with no noted focal neuro deficits Psych: Alert and oriented to person and place but pleasantly confused to time and situation. Appropriate and pleasant affect. Assessment and Plan of Care: Acute on chronic respiratory failure with hypoxia COVID-pneumonia COPD with acute exacerbation secondary to above -Consult to Pulmonology -Oxygenation to be administered and titrated as needed to maintain SPO2 equal to or greater than 92% -Telemetry monitoring. -Monitor pulse-oximetry -Duonebs scheduled 4 times daily and as needed for SOB and/or wheezing -Incentive Spirometry -Steroids: Solu-Medrol 60 mg IVP every 8 hours. -Antibiotics: Azithromycin 500 mg IVPB daily and Rocephin 2 g IVPB daily. -Follow-up on sputum culture and blood culture results. Follow-up on urine Legionella. -Order placed for D-dimer. -Symbicort 80-4.5 mcg inhaler 2 puffs twice daily. Oral candidiasis -Order placed for Magic mouthwash with nystatin, lidocaine, and Benadryl 3 times daily. Hypoalbuminemia with protein calorie malnutrition with BMI of 19.2 kg/m -Patient to be encouraged oral intake and was placed on protein supplements 3 times daily between meals. -Consult placed to dietitian Anxiety -Continue daily medication regimen with Xanax 0.25 mg twice daily. Mild dementia -Provide safe and supportive care with assistance and redirection as needed. -Maintain fall precautions. GERD -Continue omeprazole 20 mg daily. Data and imaging reviewed: As stated above in HPI CODE STATUS: Full code DVT prophylaxis: Lovenox Anticipated discharge date: Pending clinical course Anticipated discharge place: Return to [facility] Patient was seen independently by Nurse Practitioner. This document was prepared using [employer] dictation software. Please allow for errors in block mason while rare they do occur. Maurice Medina SUPERVISOR [employer] rendered care for this patient independently, reviewed the findings and plan as documented in the note above and agree with plan. I did not physically speak with or examine the patient on this date. Past Medical History Past Medical History: COPD, Hypertension Additional Past Medical History / Comment(s): [place] History of Any Multi-Drug Resistant Organisms: None Reported Date of last positivie culture/infection: 01/18/24 MDRO Source:: URINE Past Surgical History: Section Additional Past Surgical History / Comment(s): vain stripping left leg Past Anesthesia/Blood Transfusion Reactions: No Reported Reaction Past Psychological History: Anxiety, Depression Smoking Status: Current every day smoker Past Alcohol Use History: None Reported Past Drug Use History: None Reported - Past Family History Mother Family Medical History: No Reported History Additional Family Medical History / Comment(s): at 80 years old of old age. Father Family Medical History: No Reported History Additional Family Medical History / Comment(s): at 85 years old of old age. Medications and Allergies Home Medications Medication Instructions Recorded Confirmed Type Folic Acid 1 mg PO DAILY #30 tablet 12/25/23 06/18/24 Rx Multivitamins, Thera [Multivitamin 1 tab PO DAILY #30 tablet 12/25/23 06/18/24 Rx (formulary)] Acetaminophen [Tylenol] 650 mg PO Q6H PRN 01/17/24 06/18/24 History Cholecalciferol [Vitamin D3 (25 50 mcg PO DAILY 01/17/24 06/18/24 History Mcg = 1000 Iu)] Fluticasone Propion/Salmeterol 1 puff INHALATION RT-BID 01/17/24 06/18/24 History [Fluticasone-Salmeterol 250-50] Ipratropium-Albuterol Nebulize 3 ml INHALATION RT-Q4H 01/17/24 06/18/24 History [Duoneb 0.5 mg-3 mg/3 ml Soln] ALPRAZolam [Xanax] 0.25 mg PO BID PRN 06/18/24 06/18/24 History Omeprazole [PriLOSEC] 20 mg PO DAILY 06/18/24 06/18/24 History Vit C/E/Zn/Coppr/Lutein/Zeaxan 1 cap PO DAILY 06/18/24 06/18/24 History [Preservision Areds 2 Softgel] Allergies Allergy/AdvReac Type Severity Reaction Status Date / Time No Known Allergies Allergy Verified 06/18/24 15:22 Physical Exam Vitals: Vital Signs Temp Pulse Resp Pulse Ox 06/18/24 15:03 87 18 06/18/24 14:54 88 22 06/18/24 14:31 97.5 F L 24 93 L Intake and Output 06/18/24 06/18/24 06/18/24 06:59 14:59 22:59 Other: Weight 50.802 kg Results CBC & Chem 7: 06/18/24 15:33 06/18/24 15:33 Labs: Abnormal Lab Results - Last 24 Hours (Table) 06/18/24 06/18/24 06/18/24 Range/Units 15:33 15:33 15:33 Hgb 10.5 L (11.4-16.0) gm/dL Hct 33.6 L (34.0-46.0) % RDW 16.7 H (11.5-15.5) % APTT 19.2 L (22.0-30.0) sec BUN 18 H (7-17) mg/dL Albumin 3.4 L (3.5-5.0) g/dL
[2024-06-18] MEDS ORDERED: ALBUTEROL NEBULIZED 2.5 MG/3 ML INHALATION SCH (20:00)
[2024-06-18] MEDS: IPRATROPIUM-ALBUTEROL 3 ML NEB INHALATION SCH (20:16)
[2024-06-18] MEDS: SYMBICORT 80-4.5 MCG INHALER INHALATION SCH (20:17)
[2024-06-18] MEDS ORDERED: ALBUTEROL HFA INHALER INHALATION PRN (20:32)
[2024-06-18] MEDS: NICOTINE 21MG/24HR PATCH TRANSDERM SCH (21:54)
[2024-06-19] MEDS: methylPREDNISolone SOD SUCCI 125 MG/2 ML VIAL IV SCH (00:33)
--- NOTE | 2024-06-19 05:54 | CT ---
EXAMINATION TYPE: CT chest angio for PE DATE OF EXAM: 06/19/2024 COMPARISON: Prior chest CT January 27, 2024 HISTORY: Rule out pulmonary embolism. Elevated d-dimer. Shortness of breath. CT DLP: 200 mGycm. Automated Exposure Control for Dose Reduction was Utilized. CONTRAST: CTA scan of the thorax is performed with IV Contrast, patient injected with 100 mL of Isovue 300, pul monary embolism protocol. MIP Images are created on CT scanner and reviewed. FINDINGS: LUNGS: Suboptimal study with motion artifact particularly in evaluating for subcentimeter pulmonary n odules. At least moderate underlying emphysematous change is redemonstrated. There is bilateral lower lung dependent consolidation and/or atelectasis redemonstrated. Upper lungs remain clear. No pleural effusion or pneumothorax seen bilaterally. Interval removal of right-sided pleural pigtail drainage catheter. MEDIASTINUM: Slightly suboptimal study with most dense contrast in the SVC but no convincing CT evide nce for acute pulmonary embolism opacification of the thoracic aorta is seen with ascending aorta tasneem suring up to 3.8 cm in diameter. No thoracic aortic dissection. Coronary artery calcification is pres ent. No cardiomegaly. Tiny pericardial effusion. OTHER: There is severe compression type fracture at L2 level redemonstrated . IMPRESSION: 1. Suboptimal study without acute pulmonary embolism. 2. Persistent posterior bilateral lower lung consolidation and/or atelectasis. Upper lungs remain jimmy ar. [facility], , 06/19/2024 5:51 AM
--- NOTE | 2024-06-19 07:12 | P.CNPUL ---
History of Present Illness Consult date: 06/19/24 Requesting physician: Garret Michele Reason for consult: other (COPD, COVID) Chief complaint: Worsening shortness of breath and hypoxia History of present illness: Patient is a 74-year-old female with past medical history significant for COPD, chronic oxygen dependence, previous traumatic right-sided pneumothorax, GERD, anxiety, and dementia. She is a very poor historian. Apparently, she is a skilled nursing resident. Questionable history of dementia. Reportedly, diagnosed with COVID at the skilled nursing a couple weeks ago. Sent to the emergency department yesterday afternoon for worsening shortness of breath and hypoxia. Again was COVID-positive by PCR. Chest x-ray showing increased airspace opacities projecting over the spine on lateral view. Possible infiltrate versus atelectasis. CBC: WBC count 7.7, hemoglobin 10.5, hematocrit 33.6, platelets 314. CMP is unremarkable. Electrolytes are normal. Troponin less than 0.012. NT proBNP 677. D-dimer is elevated. No lower extremity edema. Nontachycardic. Current vitals: Heart rate 71 bpm, blood pressure 130/65 mmHg, SpO2 100% on 5 L/min nasal cannula. Nontachypneic. Afebrile. Previously started on antibi otics in the ED. Review of Systems ROS unobtainable: due to mental status Past Medical History Past Medical History: COPD, Hypertension Additional Past Medical History / Comment(s): [facility] History of Any Multi-Drug Resistant Organisms: None Reported Date of last positivie culture/infection: 01/18/24 MDRO Source:: URINE Past Surgical History: Section Additional Past Surgical History / Comment(s): vain stripping left leg Past Anesthesia/Blood Transfusion Reactions: No Reported Reaction Past Psychological History: Anxiety, Depression Smoking Status: Current every day smoker Past Alcohol Use History: None Reported Past Drug Use History: None Reported - Past Family History Mother Family Medical History: No Reported History Additional Family Medical History / Comment(s): at 80 years old of old age. Father Family Medical History: No Reported History Additional Family Medical History / Comment(s): at 85 years old of old age. Medications and Allergies Home Medications Medication Instructions Recorded Confirmed Type Folic Acid 1 mg PO DAILY #30 tablet 12/25/23 06/18/24 Rx Multivitamins, Thera [Multivitamin 1 tab PO DAILY #30 tablet 12/25/23 06/18/24 Rx (formulary)] Acetaminophen [Tylenol] 650 mg PO Q6H PRN 01/17/24 06/18/24 History Cholecalciferol [Vitamin D3 (25 50 mcg PO DAILY 01/17/24 06/18/24 History Mcg = 1000 Iu)] Fluticasone Propion/Salmeterol 1 puff INHALATION RT-BID 01/17/24 06/18/24 Histo ry [Fluticasone-Salmeterol 250-50] Ipratropium-Albuterol Nebulize 3 ml INHALATION RT-Q4H 01/17/24 06/18/24 History [Duoneb 0.5 mg-3 mg/3 ml Soln] ALPRAZolam [Xanax] 0.25 mg PO BID PRN 06/18/24 06/18/24 History Omeprazole [PriLOSEC] 20 mg PO DAILY 06/18/24 06/18/24 History Vit C/E/Zn/Coppr/Lutein/Zeaxan 1 cap PO DAILY 06/18/24 06/18/24 History [Preservision Areds 2 Softgel] Allergies Allergy/AdvReac Type Severity Reaction Status Date / Time No Known Allergies Allergy Verified 06/18/24 15:22 Physical Exam Vitals: Vital Signs Temp Pulse Resp BP Pulse Ox 06/19/24 02:00 70 16 131/69 100 06/19/24 00:00 71 16 130/65 100 06/18/24 22:00 97 18 126/71 97 06/18/24 20:33 90 06/18/24 20:19 81 06/18/24 19:04 18 121/92 06/18/24 18:10 97.7 F 86 20 144/86 94 L 06/18/24 16:57 77 20 147/74 95 06/18/24 15:03 87 18 06/18/24 14:54 88 22 06/18/24 14:31 97.5 F L 24 93 L Intake and Output 06/18/24 06/18/24 06/19/24 14:59 22:59 06:59 Other: Weight 50.802 kg GENERAL EXAM: Alert, 74-year-old female, hard of hearing, on 5 L/min nasal cannula, comfortable in no apparent distress. HEAD: Normocephalic and atraumatic EYES: Normal reaction of pupils, equal size. NOSE: Clear with pink turbinates. THROAT: No erythema or exudates. NECK: No masses, no JVD. CHEST: No chest wall deformity. LUNGS: Equal air entry with scattered wheezing and rhonchi. On 5 L/min nasal cannula, SpO2 100%. No conversational dyspnea or accessory muscle use.. CVS: S1 and S2 normal with no audible murmur, regular rhythm. No extra heart sounds ABDOMEN: No hepatosplenomegaly, active bowel sounds, no guarding or rigidity. SPINE: No scoliosis or deformity SKIN: No rashes CENTRAL NERVOUS SYSTEM: No focal deficits, tone is normal in all 4 extremities. EXTREMITIES: There is no peripheral edema, clubbing, or cyanosis. Peripheral pulses are intact. Results - Laboratory Findings CBC and BMP: 06/19/24 02:59 06/19/24 02:59 PT/INR, D-dimer PT 10.6 sec (10.0-12.5) 06/18/24 15:33 INR 0.9 (<1.2) 06/18/24 15:33 D-Dimer 2.48 mg/L FEU (<0.60) H 06/18/24 17:29 Abnormal lab findings: Abnormal Labs 06/18/24 06/18/24 06/18/24 15:33 15:33 15:33 Hgb 10.5 L Hct 33.6 L RDW 16.7 H APTT 19.2 L D-Dimer BUN 18 H Albumin 3.4 L SARS-CoV-2 (PCR) 06/18/24 06/18/24 16:24 17:29 Hgb Hct RDW APTT D-Dimer 2.48 H BUN Albumin SARS-CoV-2 (PCR) Detected A - Diagnostic Findings Chest x-ray: image reviewed Assessment and Plan Assessment: Acute COVID infection, Chest x-ray showing increased airspace opacities projecting over the spine on lateral view. Possible infiltrate versus atelectasis Acute COPD exacerbation, secondary to above Acute on chronic hypoxemic respiratory failure, secondary to above Elevated D-dimer, likely secondary to infection History of frequent falls and right-sided traumatic pneumothoraces: First occurrence in 2021 and again in December, Chronic hypoxemic respiratory failure, normally maintained on 3 L/min nasal cannula Tobacco smoker History of anxiety Hard of Hearing assisted resident Plan: Patient's medications, labs, imaging reviewed Continue supplemental oxygen, titrate FiO2 to maintain oxygen saturation of 92% or greater Continue combination of bronchodilators, Symbicort inhaler, and IV Solu-Medrol Patient was started on antibiotics in the emergency department, will check procalcitonin level and manage accordingly rule out PE with CT angio, however, felt to be less likely DVT prophylaxis: Lovenox GI prophylaxis: Protonix We will continue to follow I have personally seen and examined the patient, performed the documentation and the assessment and plan as written. Number of minutes spent on the visit:20 This is a joint evaluation that was done along with the nurse practitioner. This evaluation was done more than 30 minutes. The patient is a 74-year-old female who tested positive for a COVID-19 infection in the skilled nursing few weeks back. The test is still positive during this current hospitalization. The patient was brought into the hospital because of increased shortness of breath. She has a component of an acute COPD exacerbation. Reviewed the blood work. No significant leukocytosis with a white cell count of 7.3. D-dimer is at 2.4. Normal coagulation profile. Normal electrolytes. Normal renal function. Procalcitonin level is at 0.03. proBNP level is at 677, troponins are negative and the patient is currently on Symbicort as maintenance, albuterol HFA 4 times a day [id number] and IV Solu-Medrol. The patient is also on Lovenox 40 mg subcu for DVT prophylaxis. She is on 3 days of oxygen nasal cannula with a pulse ox of 97%. CTA of the chest was done today and it was a suboptimal study for pulmonary embolism. There was some atelectatic changes in the lower lobes along with background emphysematous changes bilaterally. Will continue the current treatment. Will continue IV Solu-Medrol. Will follow. Time with Patient: Greater than 30
--- NOTE | 2024-06-19 07:18 | XR ---
EXAMINATION TYPE: XR chest 1V DATE OF EXAM: 06/19/2024 COMPARISON: 06/18/2024 CLINICAL INDICATION: Female, 74 years old with history of pneumonia; TECHNIQUE: Single frontal view of the chest is obtained. FINDINGS: Hyperinflation compatible with COPD. Right basilar infiltrate persists. Scattered interstitial promin ence likely chronic in nature. Cardiac mediastinal silhouette stable. IMPRESSION: Stable right lower lobe infiltrate. [facility], , 06/19/2024 7:16 AM
[2024-06-19] MEDS: ALBUTEROL HFA INHALER INHALATION SCH (08:05)
[2024-06-19] MEDS: SYMBICORT 160-4.5 MCG INHALER INHALATION SCH (08:05)
[2024-06-19] MEDS: ENOXAPARIN 40 MG/0.4 ML SYRINGE SQ SCH (08:16)
[2024-06-19 08:39] LABS: HCT 31.7 % (37.2-46.3); HGB 9.9 g/dL (12.0-15.0); MCH 26.8 pg (27.0-32.0); MCHC 31.2 g/dL (32.0-37.0); MCV 85.7 FL (80.0-97.0); Mean Platelet Volume 10.1 FL (9.5-12.2); NRBC Per 100 WBC 0 X 10*3/uL (0.00-0.01); Platelet Count 378 X 10*3/uL (140-440); RDW 16.8 % (11.5-14.5); WBC 7.35 X 10*3/uL (4.50-10.00)
[2024-06-19] MEDS: CHOLECALCIFEROL 25 MCG (1000 IU) TABLET PO SCH (08:43)
[2024-06-19] MEDS: PANTOPRAZOLE 40 MG TABLET PO SCH (08:44)
[2024-06-19] MEDS: MULTIVITAMINS, THERA 1 EACH TAB PO SCH (08:44)
[2024-06-19] MEDS: FOLIC ACID 1 MG TAB PO SCH (08:44)
[2024-06-19] MEDS: VIT A,C & E-LUTEIN-MINERALS 1 EACH TAB PO SCH (08:45)
[2024-06-19] MEDS: AZITHROMYCIN 500 MG in SODIUM CHLORIDE 0.9% 250 ML IVPB SCH (08:45)
[2024-06-19 08:53] LABS: Magnesium 1.8 mg/dL (1.5-2.4)
[2024-06-19 09:07] LABS: ALT 6 U/L (8-44); AST 16 U/L (13-35); Albumin 3.3 g/dL (3.8-4.9); Albumin/Globulin Ratio 1.18 Ratio (1.60-3.17); Alkaline Phosphatase 85 U/L (41-126); Blood Urea Nitrogen 17.3 mg/dL (9.0-27.0); Calcium 8.5 mg/dL (8.7-10.3); Carbon Dioxide 21.1 mmol/L (21.6-31.8); Chloride 107 mmol/L (96-109); Globulin 2.8 g/dL (1.6-3.3); Glucose 230 mg/dL (70-110); Potassium 4.3 mmol/L (3.5-5.5); Sodium 139 mmol/L (135-145); Total Bilirubin <0.2 mg/dL (0.3-1.2); Total Protein 6.1 g/dL (6.2-8.2)
--- NOTE | 2024-06-19 12:52 | P.PN ---
Subjective Progress Note Date: 06/19/24 Hospital Course: Patient is a very pleasant 74-year-old female who is a resident of [facility]. She has a past medical history of dementia, COPD home oxygen dependent on 3 L at all times, hypertension, GERD, and anxiety. She presented to the emergency department via EMS from [facility] secondary to increased shortness of breath and hypoxia. Per family at bedside, patient was diagnosed with COVID approximately 2 weeks ago and has since had progressively worsening shortness of breath. Patient has dementia and is a very poor historian. Family at bedside deny patient having any known recent fevers, difficulty swallowing or choking on food, or any other reported associated factors. They reports she was recently diagnosed with thrush and does complain of sore gums/mouth. Patient denies any difficulty swallowing and tolerating clear liquids at this time with no evidence of difficulties. Patient reports her mouth is sore and that she is always cold but her breathing feels "a bit better." She denies having any headache, lightheadedness, dizziness, chest pain, palpitations, productive cough, abdominal pain, nausea, vomiting, or experiencing any numbness/tingling/weakness/swelling in her extremities. Upon arrival to our facility, patient underwent evaluation of the emergency department. Vital signs upon arrival show blood pressure 147/74, heart rate 77, respiratory rate 24, temp 97.5 F, and SpO2 of 93% on 5 L O2. EKG completed with moderate interference showing sinus mechanism at 86 bpm no significantly noted T wave or ST abnormality showing no signs of acute ischemia upon personal review and interpretation. Chest x-ray completed showing increased airspace opacities concerning for pneumonia. Labs completed and reviewed. CBC showing microcytic anemia with hemoglobin of 10.5 (appears to be chronic and at bas vy). Coagulation profile showing low PTT of 19.2 otherwise normal findings. BMP showing mild prerenal azotemia with BUN of 18 otherwise normal findings. Blood glucose 81. Lactic acid 1.1. Magnesium 1.8. Liver profile unremarkable. Troponin was negative at less than 0.012 and proBNP was 677. Albumin was low at 3.4. Influenza A, influenza B, and RSV were negative. COVID PCR was positive. Patient admitted under our services with consultation to pulmonology. Physical exam: Patient seen and fully evaluated at bedside this morning. She reports that she feels as though she is breathing a bit better today and "thinks" her breathing is better.. Patient currently denies having any complaints, questions, or needs at this time. Vital signs reviewed and stable. General: Nontoxic, no distress and appears stated age. Thin and frail. Derm: Skin warm and dry, normal coloration for ethnicity. Head: Atraumatic, normocephalic and symmetric. Very hard of hearing. Eyes: EOM's intact, no lid lag, and anicteric sclera Mouth: mucus membranes moist, patient with erythema and small blister on left lateral tongue with small areas of white plaque Cardiovascular: regular rate and rhythm with normal S1S2, soft systolic murmur, positive posterior tibial pulses bilaterally, and cap refill < 2 seconds. Lungs: Respirations even, regular, and unlabored on 4L O2 via NC. Lungs slightly diminished with bibasilar crackles.. No conversational dyspnea noted and no accessory muscle usage. Abdominal: soft, nontender to palpation, no guarding, no appreciable organomegaly Ext: ROM intact. No gross muscle atrophy, no edema, no contractures Neuro: Speech clear, face symmetrical and CN II-XII grossly intact with no noted focal neuro deficits Psych: Alert and oriented to person and place but pleasantly confused to time and situation. Appropriate and pleasant affect. Assessment and Plan of Care: Acute on chronic respiratory failure with hypoxia COVID-pneumonia COPD with acute exacerbation secondary to above Elevated D-dimer, CTA negative for PE -Pulmonology following, reviewed documentation in chart. -Oxygenation to be administered and titrated as needed to maintain SPO2 equal to or greater than 90%. Currently on 4 L with SpO2 of 93%. -Telemetry monitoring. -Monitor pulse-oximetry -Duonebs scheduled 4 times daily and as needed for SOB and/or wheezing -Incentive Spirometry -Steroids: Solu-Medrol 60 mg IVP every 8 hours. -Antibiotics: Azithromycin 500 mg IVPB daily and Rocephin 2 g IVPB daily. -Follow-up on sputum culture and blood culture results. -Urine Legionella negative.. -D-dimer was elevated at 2.48. CTA chest was completed showing suboptimal study but negative for acute pulmonary emboli showing persistent posterior bilateral lower lung consolidation. -Symbicort 80-4.5 mcg inhaler 2 puffs twice daily. Oral candidiasis -Order placed for Magic mouthwash with nystatin, lidocaine, and Benadryl 3 times daily. Hypoalbuminemia with protein calorie malnutrition with BMI of 19.2 kg/m -Patient to be encouraged oral intake and was placed on protein supplements 3 times daily between meals. -Consult placed to dietitian Anxiety -Continue daily medication regimen with Xanax 0.25 mg twice daily. Mild dementia -Provide safe and supportive care with assistance and redirection as needed. -Maintain fall precautions. GERD -Continue omeprazole 20 mg daily. Data and imaging reviewed: Labs reviewed. CBC showing normocytic anemia with hemoglobin of 9.9. BMP showing hypocarbia with bicarb 21.1. Magnesium 1.8. Liver profile normal findings. Albumin low at 3.3. Urine Legionella negative.. D-dimer was elevated at 2.48. CTA chest was completed showing suboptimal study but negative for acute pulmonary emboli showing persistent posterior bilateral lower lung consolidation. Vital signs reviewed. Blood pressure 160/86, heart rate 72, respiratory rate 20, temp 98.7 F, and SpO2 of 93% on 4 L. CODE STATUS: Full code DVT prophylaxis: Lovenox Anticipated discharge date: Pending clinical course Anticipated discharge place: Return to [facility] Patient was seen independently by Nurse Practitioner. This document was prepared using Sitem[employer] dictation software. Please allow for errors in change management specialist while rare they do occur. Maurice Medina NP rendered care for this patient independently, reviewed the findings and plan as documented in the note above and agree with plan. I did not physically speak with or examine the patient on this date. Objective - Vital Signs Vital signs: Vital Signs Temp 97.7 F 06/19/24 06:42 Pulse 71 06/19/24 06:42 Resp 22 06/19/24 06:42 BP 143/77 06/19/24 06:42 Pulse Ox 95 06/19/24 08:11 FiO2 Intake & Output 06/18/24 06/19/24 06/19/24 18:59 06:59 18:59 Weight 50.802 kg - Labs CBC & Chem 7: 06/19/24 02:59 06/19/24 02:59 Labs: Abnormal Lab Results - Last 24 Hours (Table) 06/18/24 06/18/24 06/18/24 Range/Units 15:33 15:33 15:33 RBC (4.10-5.20) X 10*6/uL Hgb 10.5 L (11.4-16.0) gm/dL Hct 33.6 L (34.0-46.0) % MCH (27.0-32.0) pg MCHC (32.0-37.0) g/dL RDW 16.7 H (11.5-15.5) % APTT 19.2 L (22.0-30.0) sec D-Dimer (<0.60) mg/L FEU Carbon Dioxide (21.6-31.8) mmol/L BUN 18 H (7-17) mg/dL Creatinine (0.6-1.5) mg/dL BUN/Creatinine Ratio (12.00-20.00) Ratio Glucose (70-110) mg/dL Calcium (8.7-10.3) mg/dL Total Bilirubin (0.3-1.2) mg/dL ALT (8-44) U/L Total Protein (6.2-8.2) g/dL Albumin 3.4 L (3.5-5.0) g/dL Albumin/Globulin Ratio (1.60-3.17) Ratio SARS-CoV-2 (PCR) (Not Detectd) 06/18/24 06/18/24 06/19/24 Range/Units 16:24 17:29 02:59 RBC 3.70 L (4.10-5.20) X 10*6/uL Hgb 9.9 L (11.4-16.0) gm/dL Hct 31.7 L (34.0-46.0) % MCH 26.8 L (27.0-32.0) pg MCHC 31.2 L (32.0-37.0) g/dL RDW 16.8 H (11.5-15.5) % APTT (22.0-30.0) sec D-Dimer 2.48 H (<0.60) mg/L FEU Carbon Dioxide (21.6-31.8) mmol/L BUN (7-17) mg/dL Creatinine (0.6-1.5) mg/dL BUN/Creatinine Ratio (12.00-20.00) Ratio Glucose (70-110) mg/dL Calcium (8.7-10.3) mg/dL Total Bilirubin (0.3-1.2) mg/dL ALT (8-44) U/L Total Protein (6.2-8.2) g/dL Albumin (3.5-5.0) g/dL Albumin/Globulin Ratio (1.60-3.17) Ratio SARS-CoV-2 (PCR) Detected A (Not Detectd) 06/19/24 Range/Units 02:59 RBC (4.10-5.20) X 10*6/uL Hgb (11.4-16.0) gm/dL Hct (34.0-46.0) % MCH (27.0-32.0) pg MCHC (32.0-37.0) g/dL RDW (11.5-15.5) % APTT (22.0-30.0) sec D-Dimer (<0.60) mg/L FEU Carbon Dioxide 21.1 L (21.6-31.8) mmol/L BUN (7-17) mg/dL Creatinine 0.5 L (0.6-1.5) mg/dL BUN/Creatinine Ratio 34.60 H (12.00-20.00) Ratio Glucose 230 H (70-110) mg/dL Calcium 8.5 L (8.7-10.3) mg/dL Total Bilirubin <0.2 L (0.3-1.2) mg/dL ALT 6 L (8-44) U/L Total Protein 6.1 L (6.2-8.2) g/dL Albumin 3.3 L (3.5-5.0) g/dL Albumin/Globulin Ratio 1.18 L (1.60-3.17) Ratio SARS-CoV-2 (PCR) (Not Detectd)
[2024-06-19] MEDS: BENZOCAINE 20 % GEL 11.9 GM TUBE MM PRN (16:22)
[2024-06-19] MEDS: ALPRAZolam 0.25 MG TAB PO PRN (16:22)
[2024-06-20 09:09] LABS: HCT 32.1 % (37.2-46.3); HGB 9.7 g/dL (12.0-15.0); MCH 26.1 pg (27.0-32.0); MCHC 30.2 g/dL (32.0-37.0); MCV 86.3 FL (80.0-97.0); Mean Platelet Volume 10.6 FL (9.5-12.2); NRBC Per 100 WBC 0 X 10*3/uL (0.00-0.01); Platelet Count 371 X 10*3/uL (140-440); RBC 3.72 X 10*6/uL (4.10-5.20); RDW 17.1 % (11.5-14.5); WBC 8.05 X 10*3/uL (4.50-10.00)
[2024-06-20 09:16] LABS: ALT 7 U/L (8-44); AST 13 U/L (13-35); Albumin 3.3 g/dL (3.8-4.9); Albumin/Globulin Ratio 1.18 Ratio (1.60-3.17); Alkaline Phosphatase 75 U/L (41-126); BUN/Creat Ratio 25.17 Ratio (12.00-20.00); Blood Urea Nitrogen 15.1 mg/dL (9.0-27.0); Calcium 8.9 mg/dL (8.7-10.3); Carbon Dioxide 24.2 mmol/L (21.6-31.8); Chloride 105 mmol/L (96-109); Globulin 2.8 g/dL (1.6-3.3); Glucose 141 mg/dL (70-110); Potassium 4.2 mmol/L (3.5-5.5); Sodium 138 mmol/L (135-145); Total Bilirubin <0.2 mg/dL (0.3-1.2); Total Protein 6.1 g/dL (6.2-8.2)
--- NOTE | 2024-06-20 12:44 | P.DS ---
Providers Date of admission: 06/18/24 16:09 Expected date of discharge: 06/20/24 Attending physician: Cyndie Celeste MD Consults: 06/18/24 16:04 Consult Physician Routine Consulting Provider: Isabelle Bray Consult Reason/Comments: copd Do you want consulting provider notified?: Yes Primary care physician: Stated None Hospital Course: Discharge Diagnosis: Acute on chronic respiratory failure with hypoxia. COVID-pneumonia COPD with acute exacerbation secondary to above. Elevated D-dimer, CTA negative for PE. Oral candidiasis. Continue Magic mouthwash with nystatin, lidocaine, and Benadryl 3 times daily. Hypoalbuminemia with protein calorie malnutrition with BMI of 19.2 kg/m. Patient to be encouraged oral intake and was placed on protein supplements 3 times daily between meals. Anxiety. Continue daily medication regimen with Xanax 0.25 mg twice daily. Mild dementia. Provide safe and supportive care with assistance and redirection as needed. Maintain fall precautions. GERD. Continue omeprazole 20 mg daily. Hospital Course: Patient is a very pleasant 74-year-old female who is a resident of [facility]. She has a past medical history of dementia, COPD home oxygen dependent on 3 L at all times, hypertension, GERD, and anxiety. She presented to the emergency department via EMS from [facility] secondary to increased shortness of breath and hypoxia. Per family at bedside, patient was diagnosed with COVID approximately 2 weeks ago and has since had progressively worsening shortness of breath. Patient has dementia and is a very poor historian. Family at bedside deny patient having any known recent fevers, diff iculty swallowing or choking on food, or any other reported associated factors. They reports she was recently diagnosed with thrush and does complain of sore gums/mouth. Patient denies any difficulty swallowing and tolerating clear liquids at this time with no evidence of difficulties. Patient reports her mouth is sore and that she is always cold but her breathing feels "a bit better." She denies having any headache, lightheadedness, dizziness, chest pain, palpitations, productive cough, abdominal pain, nausea, vomiting, or experiencing any numbness/tingling/weakness/swelling in her extremities. Upon arrival to our facility, patient underwent evaluation of the emergency department. Vital signs upon arrival show blood pressure 147/74, heart rate 77, respiratory rate 24, temp 97.5 F, and SpO2 of 93% on 5 L O2. EKG completed with moderate interference showing sinus mechanism at 86 bpm no significantly noted T wave or ST abnormality showing no signs of acute ischemia upon personal review and interpretation. Chest x-ray completed showing increased airspace opacities concerning for pneumonia. Labs completed and reviewed. CBC showing microcytic anemia with hemoglobin of 10.5 (appears to be chronic and at baseline). Coagulation profile showing low PTT of 19.2 otherwise normal findings. BMP showing mild prerenal azotemia with BUN of 18 otherwise normal findings. Blood glucose 81. Lactic acid 1.1. Magnesium 1.8. Liver profile unremarkable. Troponin was negative at less than 0.012 and proBNP was 677. Albumin was low at 3.4. Influenza A, influenza B, and RSV were negative. COVID PCR was positive. Patient admitted under our services with consultation to pulmonology. She was started on IV steroids and dtovc-nwc-ahbgy breathing treatments. Patient's condition improving and she is back at her baseline oxygen needs. SpO2 92% on room air and 94% on baseline 3 L. Patient medically optimized for discharge back to residential facility. She is being discha rged home on an additional 2 days of amoxicillin to complete 5-day course of antibiotics for pneumonia. She is also being discharged home with prednisone taper and nystatin 3 times daily for treatment of oral candidiasis. Physical exam: Vital signs reviewed and stable. General: Nontoxic, no distress and appears stated age. Thin and frail. Derm: Skin warm and dry, normal coloration for ethnicity. Head: Atraumatic, normocephalic and symmetric. Very hard of hearing. Eyes: EOM's intact, no lid lag, and anicteric sclera Mouth: mucus membranes moist, patient with erythema and small blister on left lateral tongue with small areas of white plaque Cardiovascular: regular rate and rhythm with normal S1S2, soft systolic murmur, positive posterior tibial pulses bilaterally, and cap refill < 2 seconds. Lungs: Respirations even, regular, and unlabored on 3L O2 via NC. Lungs slightly diminished with no wheezes, rhonchi, rales, or crackles noted. No conversational dyspnea noted and no accessory muscle usage. Abdominal: soft, nontender to palpation, no guarding, no appreciable organomegaly Ext: ROM intact. No gross muscle atrophy, no edema, no contractures Neuro: Speech clear, face symmetrical and CN II-XII grossly intact with no noted focal neuro deficits Psych: Alert and oriented to person and place but pleasantly confused to time and situation. Appropriate and pleasant affect. A total of 35 minutes of time were spent preparing this complex discharge summary. Pt was discharged on 06/20/2024 at 11:57 AM Patient was seen independently by Nurse Practitioner. This document was prepared using [employer] dictation software. Please allow for errors in instructor correspondence school while rare they do occur. Maurice Medina NP rendered care for this patient independently, reviewed the findings and plan as documented in the note above. I did not physically speak with or examine the patient on this date. Patient Condition at Discharge: Stable Plan - Discharge Summary Discharge Rx Participant: No New Discharge Prescriptions: New Nystatin 100,000 Unit/ml Susp [Mycostatin Oral Susp] 3,000,000 unit PO TID #0 ml Amoxic-Pot Clav 875-125Mg [Augmentin 875-125] 1 tab PO Q12HR 2 Days #5 tab predniSONE See Taper PO DIRECTED 12 Days #30 tab Continue Ipratropium-Albuterol Nebulize [Duoneb 0.5 mg-3 mg/3 ml Soln] 3 ml INHALATION RT-Q4H Fluticasone Propion/Salmeterol [Fluticasone-Salmeterol 250-50] 1 puff INHALATION RT-BID Acetaminophen [Tylenol] 650 mg PO Q6H PRN PRN Reason: Pain Vit C/E/Zn/Coppr/Lutein/Zeaxan [Preservision Areds 2 Softgel] 1 cap PO DAILY ALPRAZolam [Xanax] 0.25 mg PO BID PRN PRN Reason: Anxiety Omeprazole [PriLOSEC] 20 mg PO DAILY Folic Acid 1 mg PO DAILY #30 tablet Multivitamins, Thera [Multivitamin (formulary)] 1 tab PO DAILY #30 tablet Cholecalciferol [Vitamin D3 (25 Mcg = 1000 Iu)] 50 mcg PO DAILY Discharge Medication List Folic Acid 1 mg PO DAILY #30 tablet 12/25/23 [Rx] Multivitamins, Thera [Multivitamin (formulary)] 1 tab PO DAILY #30 tablet 12/25/23 [Rx] Acetaminophen [Tylenol] 650 mg PO Q6H PRN 01/17/24 [History] Cholecalciferol [Vitamin D3 (25 Mcg = 1000 Iu)] 50 mcg PO DAILY 01/17/24 [History] Fluticasone Propion/Salmeterol [Fluticasone-Salmeterol 250-50] 1 puff INHALATION RT-BID 01/17/24 [History] Ipratropium-Albuterol Nebulize [Duoneb 0.5 mg-3 mg/3 ml Soln] 3 ml INHALATION RT-Q4H 01/17/24 [History] ALPRAZolam [Xanax] 0.25 mg PO BID PRN 06/18/24 [History] Omeprazole [PriLOSEC] 20 mg PO DAILY 06/18/24 [History] Vit C/E/Zn/Coppr/Lutein/Zeaxan [Preservision Areds 2 Softgel] 1 cap PO DAILY 06/18/24 [History] Amoxic-Pot Clav 875-125Mg [Augmentin 875-125] 1 tab PO Q12HR 2 Days #5 tab 06/20/24 [Rx] Nystatin 100,000 Unit/ml Susp [Mycostatin Oral Susp] 3,000,000 unit PO TID #0 ml 06/20/24 [Rx] predniSONE See Taper PO DIRECTED 12 Days #30 tab 06/20/24 [Rx] Follow up Appointment(s)/Referral(s): [facility] [NON-STAFF] - 1 Week Isabelle Bray MD [STAFF PHYSICIAN] - 1 Week Patient Instructions/Handouts: Chronic Lung Disease and Infection Prevention (DC), COVID-19 (Coronavirus Disease 2019) (DC) Activity/Diet/Wound Care/Special Instructions: Activity: As tolerated. Take breaks as needed. Diet: Regular diet and recommend protein supplements such as Ensure 3 times daily between meals. Special Instructions: Take all of your medications as directed and remember to keep all of your doctor's appointments and follow-up as needed. Thank you for allowing us to participate in your care, it was truly a pleasure having you for our patient!!! Discharge Disposition: TRANSFER TO SNF/ECF
[2024-06-20 15:08] VITALS: BP 112/74; PULSE 103; RESP 18; TEMP 98
--- NOTE | 2024-06-20 15:21 | P.PN ---
Subjective Progress Note Date: 06/20/24 On 06/20/2024, the patient is being seen for a follow-up. The patient was hospitalized for COVID-19 infection and acute COPD exacerbation. Feeling much improved compared to yesterday. Sitting up in a chair and tolerating her diet. She is on IV Solu-Medrol 60 mg every 6 hours. She is also on Ventolin HFA 4 times a day and Symbicort as maintenance. She remains on Lovenox 40 mg subcu for DVT prophylaxis. White cell count is at 8 with a hemoglobin 9.7 and a platelet count of 371. Sodium is at 138, potassium is at 4.2, BUN is 15 with a creatinine of 0.6. LFTs are unchanged. Procalcitonin level is at 0.03. No altered mentation. No nausea or vomiting. Energy level is better and continues to improve. No other significant events overnight. Objective - Vital Signs Vital signs: Vital Signs Temp 97.5 F L 06/20/24 07:33 Pulse 91 06/20/24 07:33 Resp 17 06/20/24 07:33 BP 132/93 06/20/24 07:33 Pulse Ox 94 L 06/20/24 08:15 FiO2 Intake & Output 06/19/24 06/20/24 06/20/24 18:59 06:59 18:59 Output Total 300 Balance -300 Weight 50.802 kg Output: Urine 300 Other: Voiding Method Toilet Diaper # Bowel Movements 1 - Exam 3 GENERAL EXAM: Alert, 74-year-old female, hard of hearing, on 3 L/min nasal cannula, comfortable in no apparent distress. HEAD: Normocephalic and atraumatic EYES: Normal reaction of pupils, equal size. NOSE: Clear with pink turbinates. THROAT: No erythema or exudates. NECK: No masses, no JVD. CHEST: No chest wall deformity. LUNGS: Equal air entry with scattered wheezing and rhonchi. No co nversational dyspnea or accessory muscle use.. CVS: S1 and S2 normal with no audible murmur, regular rhythm. No extra heart sounds ABDOMEN: No hepatosplenomegaly, active bowel sounds, no guarding or rigidity. SPINE: No scoliosis or deformity SKIN: No rashes CENTRAL NERVOUS SYSTEM: No focal deficits, tone is normal in all 4 extremities. EXTREMITIES: There is no peripheral edema, clubbing, or cyanosis. Peripheral pulses are intact. - Labs CBC & Chem 7: 06/20/24 03:17 06/20/24 03:17 Labs: Abnormal Lab Results - Last 24 Hours (Table) 06/20/24 06/20/24 Range/Units 03:17 03:17 RBC 3.72 L (4.10-5.20) X 10*6/uL Hgb 9.7 L (12.0-15.0) g/dL Hct 32.1 L (37.2-46.3) % MCH 26.1 L (27.0-32.0) pg MCHC 30.2 L (32.0-37.0) g/dL RDW 17.1 H (11.5-14.5) % BUN/Creatinine Ratio 25.17 H (12.00-20.00) Ratio Glucose 141 H (70-110) mg/dL Total Bilirubin <0.2 L (0.3-1.2) mg/dL ALT 7 L (8-44) U/L Total Protein 6.1 L (6.2-8.2) g/dL Albumin 3.3 L (3.8-4.9) g/dL Albumin/Globulin Ratio 1.18 L (1.60-3.17) Ratio Microbiology - Last 24 Hours (Table) 06/18/24 16:25 Blood Culture - Preliminary Blood 06/18/24 16:10 Blood Culture - Preliminary Blood Assessment and Plan Assessment: Acute COVID infection, Chest x-ray showing increased airspace opacities projecting over the spine on lateral view. Possible infiltrate versus atelectasis. CT of the chest was suboptimal yet there was no evidence of any significant filling defect or pulmonary embolism. Acute COPD exacerbation, secondary to above, clinically improving Acute on chronic hypoxemic respiratory failure, secondary to above, improving the patient is currently down to 3 L of O2 nasal cannula Elevated D-dimer, likely secondary to infection History of frequent falls and right-sided traumatic pneumothoraces: First occurrence in 2021 and again in December, Chronic hypoxemic respiratory failure, normally maintained on 3 L/min nasal cannula Tobacco smoker History of anxiety Hard of Hearing detention resident Plan: Clinically improving and the patient is less short of breath and bronchospastic and wheezy on today's evaluation Oxygenation is improved and the patient is currently down to 3 L Continue supplemental oxygen, titrate FiO2 to maintain oxygen saturation of 92% or greater Continue combination of bronchodilators Continue Symbicort inhaler Continue IV Solu-Medrol Procalcitonin level is nonelevated DVT prophylaxis: Lovenox GI prophylaxis: Protonix We will continue to follow
== END 2024-06-20 17:03 ==
LOC: EC 14:25 → 4SSUR 16:09
PROVIDERS: ADMIT Internal Medicine; ATTEND Internal Medicine
DX: U07.1 COVID-19 (principal); J44.0 Chronic obstructive pulmonary disease with (acute) lower respiratory infection; J12.82 Pneumonia due to coronavirus disease 2019; J44.1 Chronic obstructive pulmonary disease with (acute) exacerbation; J96.21 Acute and chronic respiratory failure with hypoxia; F03.A4 Unspecified dementia, mild, with anxiety; R79.89 Other specified abnormal findings of blood chemistry; B37.0 Candidal stomatitis; E88.09 Other disorders of plasma-protein metabolism, not elsewhere classified; E46 Unspecified protein-calorie malnutrition; I10 Essential (primary) hypertension; F32.A Depression, unspecified; K21.9 Gastro-esophageal reflux disease without esophagitis; H91.90 Unspecified hearing loss, unspecified ear; F17.200 Nicotine dependence, unspecified, uncomplicated; Z68.1 Body mass index [BMI] 19.9 or less, adult; Z91.81 History of falling; Z99.81 Dependence on supplemental oxygen; Z79.51 Long term (current) use of inhaled steroids; Z79.899 Other long term (current) drug therapy
CPT/HCPCS: 96376 ×2; 96366 ×3; 96372 ×2; 96365; 96367; 96375; 99291; 36415; 94640 ×4; 94760 ×2; 93005; 97162; 97166; 85379; 83880; 80053 ×3; 87449; 83605; 83735 ×3; 84484; 85025; 85027 ×2; 85610; 85730; 87040; 84145; 87636; 71045; 71046; 71275; G0378 ×3; J0456 ×3; J0696 ×3; J1650 ×2; Q9967; J2919 ×3

== ENCOUNTER → 2024-10-29 | Outpatient (CLI) | payer MEDICARE ==
--- NOTE | 2024-10-29 16:08 | BD ---
EXAMINATION TYPE: Axial Bone Density DATE OF EXAM: 10/29/2024 CLINICAL HISTORY: 74 years old Female. ICD-10 CODE: M81.0 AGE-RELATED OSTEOPOROSIS W/O CURRENT PATHO LOGY , Additional History: Height: 61.5 Weight: 101 FRAX RISK QUESTIONS: Family History (Parent hip fracture): no History of Fracture in Adulthood: yes Secondary Osteoporosis: no RISK FACTORS HISTORY OF: History of Wrist Fracture: yes When: left Surgery to Wrist (left): yes When: 50s MEDICATIONS: Thyroid Medications: no Osteoporosis Medications: no EXAM MEASUREMENTS: Bone mineral densitometry was performed using the [employer] System. Bone mineral density as measured about the Lumbar spine is: ----- L1-L4(G/cm2): 0.664 T Score Values are as follows: ----- L1: -5.6 ----- L2: -4.7 ----- L3: -4.8 ----- L4: -3.0 ----- L1-L4: -4.3 Z Score Values are as follows: ----- L1: -3.2 ----- L2: -2.3 ----- L3: -2.4 ----- L4: -0.6 ----- L1-L4: -1.9 Bone mineral density has: Increased 6.2% since study of: 05/26/2020 Bone mineral density about the R hip (g/cm2): 0.354 Bone mineral density about the L hip (g/cm2): 0.385 T Score values are as follows: -----R Neck: -4.7 -----L Neck: -4.8 -----R Total: -5.2 -----L Total: -4.9 Z Score values are as follows: -----R Neck: -2.2 -----L Neck: -2.4 -----R Total: -2.9 -----L Total: -2.7 Bone mineral density has: Decreased -35.9% since study of: 05/26/2020 FRAX%s: The graph provided illustrates a 57.1% chance for a major osteoporotic fx and a 41.4% chance for the hips probability for fx in 10 years time. IMPRESSION: Osteoporosis (T Score less than -2.5). There is increased fracture risk and therapy is usually indicated based on age. Re-Screen 1-2 years. NOTE: T-SCORE=SD OF THE YOUNG ADULT MEAN. [facility], Workstation: [email or web address], 10/29/2024 4:05 PM
== END | disposition home or self-care (01) ==
LOC: RADBDWWP 13:51
PROVIDERS: ATTEND Family Medicine
DX: M81.0 Age-related osteoporosis without current pathological fracture (principal)
CPT/HCPCS: 77080

== ENCOUNTER → 2024-11-04 | Outpatient (CLI) | payer MEDICARE ==
--- NOTE | 2024-11-04 10:00 | CT ---
EXAMINATION TYPE: CT chest wo con DATE OF EXAM: 11/04/2024 9:04 AM COMPARISON: CT 06/19/2024 CLINICAL INDICATION: Female, 74 years old with history of R91.8 OTHER NONSPECIFIC ABNORMAL FINDING OF LUNG F; PHH, Abn CXR TECHNIQUE: CT of the chest without IV contrast. Coronal and sagittal reconstructions performed. CT DLP: 245.3 mGycm, Automated exposure control for dose reduction was used. FINDINGS: Suggestion of mild scattered anasarca change. Heart borderline enlarged with trace pericardial fluid. Three-vessel coronary artery calcifications a re present. Ectatic ascending aorta 3.8 cm unchanged. Mild atherosclerotic arch calcifications with conventional arch vessel branching anatomy. Borderline ectatic upper descending thoracic aorta 3.0 cm. Similar ect atic lower descending thoracic aorta at 2.6 cm. Borderline enlarged caliber main right and left pulmonary arteries up to 2.5 cm. This may reflect und erlying pulmonary arterial hypertension. Calcified subcarinal lymph nodes compatible with prior granulomatous disease. No thoracic adenopathy by CT size criteria. Moderate to advanced emphysema. There is some lobulated mural based opacity measuring 1 cm posterior wall of the trachea likely adherent mucoid degree. Some additional strandy changes at the george. Some of the previous dependent consolidation in the lower lobe shows improvement. However, new areas of patchy bibasilar opacities are now noted. There may be underlying tree-in-bud opacities as well. 8 mm anterior basilar right lower lobe, unchanged over 5 months. Biapical pleural parenchymal scarring redemonstrated. mm right apical nodularity not well seen previously. No pleural effusion. Visualized upper abdomen shows scattered bilateral renal cortical cysts measurin g up to 3.0 cm on the left. Diffuse thickening left adrenal gland without discrete nodularity is unch anged. Chronic endplate compression fractures L2 and partially visualized L4. Also chronic superior endplate deformity of T5. There appears to be a new superior endplate injury at T11 with minimal 10% overall height loss. Mild paravertebral soft tissue thickening at this level. IMPRESSION: 1. Interval development of an acute to subacute superior endplate fracture of T11 with minimal, 10% o verall vertebral body height loss. 2. COPD with moderate to advanced emphysema. There is biapical pleural parenchymal scarring with a 9 mm right apical nodule not well seen previously. Reassess at 6 month follow-up CT. The 8 mm right bas ilar pulmonary nodule can be reassessed at that time as well (unchanged for 5 months). 3. Some of the previous dependent basilar consolidation shows improvement. However, there are new mul tifocal patchy bibasilar opacities. Some associated tree-in-bud opacities. Correlate for atypical inf ections or aspiration. Reassess at follow-up. 4. Three-vessel coronary artery calcifications and borderline cardiomegaly. Recommendations per Fleischner guideline. [facility], Workstation: [email or web address], 11/04/2024 9:58 AM
== END | disposition home or self-care (01) ==
LOC: RADCTMAIN 08:41
PROVIDERS: ATTEND Family Medicine
DX: I25.10 Atherosclerotic heart disease of native coronary artery without angina pectoris (principal); R91.8 Other nonspecific abnormal finding of lung field; J44.9 Chronic obstructive pulmonary disease, unspecified; J98.4 Other disorders of lung
CPT/HCPCS: 71250

== ENCOUNTER 2024-12-18 13:42 | Inpatient (IN) | payer MEDICARE ==
--- NOTE | 2024-12-18 13:56 | ED ---
General Adult HPI - General Stated complaint: fall, L hip injury Time Seen by Provider: 12/18/24 13:44 Source: patient, EMS, RN notes reviewed, old records reviewed Mode of arrival: EMS Limitations: altered mental status - History of Present Illness Initial comments: Patient is a 74-year-old female presenting to the emergency department from halfway for a fall. Patient is a very poor historian and does not recall the fall. Patient is very hard of hearing. Patient was found in the bathroom with complaints of left hip pain. Patient still complains of left hip pain. Patient denies any other area of complaint. - Related Data Home Medications Medication Instructions Recorded Confirmed Acetaminophen [Tylenol] 650 mg PO Q6H PRN 01/17/24 12/18/24 Omeprazole [PriLOSEC] 20 mg PO DAILY 06/18/24 12/18/24 Vit C/E/Zn/Coppr/Lutein/Zeaxan 1 cap PO DAILY 06/18/24 12/18/24 [Preservision Areds 2 Softgel] ALPRAZolam [Xanax] 0.25 mg PO TID@0900,1300,2100 12/18/24 12/18/24 Cholecalciferol (Vitamin D3) 50 mcg PO DAILY 12/18/24 12/18/24 [Vitamin D3 (50 Mcg = 2000 Iu)] Fluticasone/Umeclidin/Vilanter 1 puff INHALATION RT-DAILY 12/18/24 12/18/24 [Trelegy Ellipta 200-62.5-25] HYDROcodone/APAP 5-325MG [[place] 1 tab PO Q6H PRN 12/18/24 12/18/24 5-325] Lidocaine Viscous 2% [Xylocaine 2 ml PO DAILY PRN 12/18/24 12/18/24 Viscous] Losartan [Cozaar] 50 mg PO DAILY 12/18/24 12/18/24 Sennosides [Senokot] 8.6 mg PO DAILY 12/18/24 12/18/24 predniSONE 10 mg PO DAILY 12/18/24 12/18/24 Previous Rx's Medication Instructions Recorded Folic Acid 1 mg PO DAILY #30 tablet 12/25/23 Allergies Allergy/AdvReac Type Severity Reaction Status Date / Time No Known Allergies Allergy Verified 12/18/24 14:13 Review of Systems ROS Statement: Those systems with pertinent positive or pertinent negative responses have been documented in the HPI. ROS Other: All systems not noted in ROS Statement are negative. Constitutional: Denies: fever Eyes: Denies: eye pain ENT: Denies: ear pain Respiratory: Denies: dyspnea Past Medical History Past Medical History: COPD, Hypertension Additional Past Medical History / Comment(s): [place] History of Any Multi-Drug Resistant Organisms: None Reported Date of last positivie culture/infection: 01/18/24 MDRO Source:: URINE Past Surgical History: Section Additional Past Surgical History / Comment(s): vain stripping left leg Past Anesthesia/Blood Transfusion Reactions: No Reported Reaction Past Psychological History: Anxiety, Depression Smoking Status: Current every day smoker Past Alcohol Use History: None Reported Past Drug Use History: None Reported - Past Family History Mother Family Medical History: No Reported History Additional Family Medical History / Comment(s): at 80 years old of old age. Father Family Medical History: No Reported History Additional Family Medical History / Comment(s): at 85 years old of old age. General Exam Limitations: no limitations General appearance: alert, in no apparent distress Head exam: Present: atraumatic Eye exam: Present: normal appearance, PERRL, EOMI ENT exam: Present: normal oropharynx Neck exam: Present: normal inspection. Absent: tenderness Respiratory exam: Present: normal lung sounds bilaterally Cardiovascular Exam: Present: regular rate, normal rhythm Expanded Peripheral pulses: 2+: Posterior Tibialis (L) GI/Abdominal exam: Present: soft. Absent: tenderness Extremities exam: Present: tenderness (Left proximal femur. Leg held with external rotation and shortened. Distal extremity is neurovascular intact.) Neurological exam: Present: alert. Absent: motor sensory deficit Psychiatric exam: Present: normal affect, normal mood Skin exam: Present: normal color Course Vital Signs 12/18/24 12/18/24 12/18/24 13:46 13:55 15:26 Temperature 97.6 F Pulse Rate 73 75 75 Respiratory 22 20 22 Rate Blood Pressure 184/94 184/94 O2 Sat by Pulse 88 L 92 L 96 Oximetry EKG Findings - EKG Results: EKG: interpreted by ERMD, sinus rhythm, normal axis, normal QRS, normal ST/T Medical Decision Making - Medical Decision Making Was pt. sent in by a medical professional or institution (Dr., PA, CIVIL ENGINEERING PROFESSOR, urgent care, hospital, or halfway...) When possible be specific @ -Patient sent from halfway Did you speak to anyone other than the patient for history (EMS, parent, family, police, friend...)? What history was obtained from this source @ -EMS helps provide history as patient is a poor historian Did you review nursing and triage notes (agree or disagree)? Why? @ -I reviewed and agree with nursing and triage notes Were old charts reviewed (outside hosp., previous admission, EMS record, old EKG, old radiological studies, urgent care reports/EKG's, halfway records)? Report findings @ -No old charts were reviewed Differential Diagnosis (chest pain, altered mental status, abdominal pain women, abdominal pain men, vaginal bleeding, weakness, fever, dyspnea, syncope, headache, dizziness, GI bleed, back pain, seizure, CVA, palpatations, mental health, musculoskeletal)? @ -Differential Musculoskeletal Muscular strain, contusion, ligament sprain, fracture, arthritis, septic arthritis, bursitis, cellulitis, muscle spasm, nerve compression, DVT, arterial occlusion, herpes zoster, electrolyte abnormality, tumor.... This is not meant to be in all inclusive list EKG interpreted by me (3pts min.). @ -As above X-rays interpreted by me (1pt min.). @ -Pelvis and left femur x-rays show left IT fracture. Chest x-ray shows some chronic appearing interstitial changes. CT interpreted by me (1pt min.). @ -CT brain and cervical spine without acute abnormality U/S interpreted by me (1pt. min.). @ -None done What testing was considered but not performed or refused? (CT, X-rays, U/S, labs)? Why? @ -None What meds were considered but not given or refused? Why? @ -None Did you discuss the management of the patient with other professionals (professionals i.e. PARAS Rubio, CIVIL ENGINEERING PROFESSOR, lab, RT, psych nurse, manager social responsibility, distance learning unit leader, teacher, loan workout officer, manager case management)? Give summary @ -Case discussed with orthopedics practitioner Kelsey who will admit covering Dr. Palacios Was smoking cessation discussed for >3mins.? @ -No Was critical care preformed (if so, how long)? @ -No Were there social determinants of health that impacted care today? How? (Homelessness, low income, unemployed, alcoholism, drug addiction, transportation, low edu. Level, literacy, decrease access to med. care, alf, rehab)? @ -No Was there de-escalation of care discussed even if they declined (Discuss DNR or withdrawal of care, Hospice)? DNR status @ -No What co-morbidities impacted this encounter? (DM, HTN, Smoking, COPD, CAD, Cancer, CVA, ARF, Chemo, Hep., AIDS, mental health diagnosis, sleep apnea, morbid obesity)? @ -Dementia Was patient admitted / discharged? Hospital course, mention meds given and route, prescriptions, significant lab abnormalities, going to OR and other pertinent info. @ -Patient presents with fall and has left IT fracture. Patient to be admitted for orthopedic trauma. Patient reevaluated and updated. Admission orders tiffanie cabrera. Undiagnosed new problem with uncertain prognosis? @ -No Drug Therapy requiring intensive monitoring for toxicity (Heparin, Nitro, Insulin, Cardizem)? @ -No Were any procedures done? @ -No Diagnosis/symptom? @ -Left hip fracture Acute, or Chronic, or Acute on Chronic? @ -Acute Uncomplicated (without systemic symptoms) or Complicated (systemic symptoms)? @ -Default Side effects of treatment? @ -No Exacerbation, Progression, or Severe Exacerbation? @ -No Poses a threat to life or bodily function? How? (Chest pain, [place], [place], pneumonia, PE, COPD, DKA, ARF, appy, cholecystitis, CVA, Diverticulitis, Homicidal, Suicidal, threat to staff... and all critical care pts) @ -No - Lab Data Result diagrams: 12/18/24 13:52 12/18/24 13:52 Lab Results 12/18/24 12/18/24 12/18/24 Range/Units 13:52 13:52 15:13 WBC 11.49 H (4.50-10.00) 10*3/uL RBC 3.53 L (4.10-5.20) 10*6/uL Hgb 9.9 L (12.0-15.0) g/dL Hct 32.1 L (37.2-46.3) % MCV 90.9 (80.0-97.0) fL MCH 28.0 (27.0-32.0) pg MCHC 30.8 L (32.0-37.0) g/dL Plt Count 210 (140-440) 10*3/uL MPV 9.1 L (9.5-12.2) fL Immature Gran % (Auto) 2.4 % Neutrophils % 79.9 % Lymphocytes % 13.0 % Monocytes % 3.4 % Eosinophils % 1.0 % Basophils % 0.3 % Immature Gran # 0.28 H (0.00-0.04) 10*3/uL Neutrophils # 9.17 H (1.80-7.70) 10*3/uL Lymphocytes # 1.49 (0.90-5.00) 10*3/uL Monocytes # 0.39 (0.20-1.00) 10*3/uL Eosinophils # 0.12 (0.04-0.35) 10*3/uL Basophils # 0.04 (0.00-0.10) 10*3/uL PT 10.4 (10.0-12.5) sec INR 0.9 (<1.2) APTT 22.2 (22.0-30.0) sec Sodium 138 (137-145) mmol/L Potassium 3.6 (3.5-5.1) mmol/L Chloride 105 (98-107) mmol/L Carbon Dioxide 27 (22-30) mmol/L Anion Gap 6 mmol/L BUN 24 H (7-17) mg/dL Creatinine 0.49 L (0.52-1.04) mg/dL Est GFR (CKD-EPI)AfAm >90 (>60 ml/min/1.73 sqM) Est GFR (CKD-EPI)NonAf >90 (>60 ml/min/1.73 sqM) Glucose 82 (74-99) mg/dL Calcium 8.1 L (8.4-10.2) mg/dL Total Bilirubin 0.3 (0.2-1.3) mg/dL AST 27 (14-36) U/L ALT 24 (4-34) U/L Alkaline Phosphatase 89 (38-126) U/L Total Protein 5.7 L (6.3-8.2) g/dL Albumin 3.0 L (3.5-5.0) g/dL Disposition Clinical Impression: Intertrochanteric fracture of left hip Disposition: ADMITTED IP TO THIS [facility] Is patient prescribed a controlled substance at d/c from ED?: No Referrals: Lorraine Armenta MD [Primary Care Provider] - 1-2 days Time of Disposition: 16:07
[2024-12-18] MEDS: MORPHINE SULFATE 4 MG/ML SYRINGE IVP STA (13:59)
[2024-12-18 14:15] LABS: Basophils # (A) 0.04 10*3/uL (0.00-0.10); Basophils % (A) 0.3 %; Eosinophils # (A) 0.12 10*3/uL (0.04-0.35); HCT 32.1 % (37.2-46.3); HGB 9.9 g/dL (12.0-15.0); Lymphocytes # (A) 1.49 10*3/uL (0.90-5.00); MCHC 30.8 g/dL (32.0-37.0); MCV 90.9 fL (80.0-97.0); Mean Platelet Volume 9.1 fL (9.5-12.2); Monocytes # (A) 0.39 10*3/uL (0.20-1.00); Monocytes % (A) 3.4 %; Neutrophils # (A) 9.17 10*3/uL (1.80-7.70); Neutrophils % (A) 79.9 %; Platelet Count 210 10*3/uL (140-440); RBC 3.53 10*6/uL (4.10-5.20); RDW 17.4 % (11.5-14.5); WBC 11.49 10*3/uL (4.50-10.00)
[2024-12-18 14:26] LABS: ALT 24 U/L (4-34); AST 27 U/L (14-36); African American GFR (CKD) >90 (>60 ml/min/1.73 sqM); Alkaline Phosphatase 89 U/L (38-126); Anion Gap 6 mmol/L; Blood Urea Nitrogen 24 mg/dL (7-17); Calcium 8.1 mg/dL (8.4-10.2); Carbon Dioxide 27 mmol/L (22-30); Chloride 105 mmol/L (98-107); Glucose 82 mg/dL (74-99); Non-African American GFR(CKD) >90 (>60 ml/min/1.73 sqM); Potassium 3.6 mmol/L (3.5-5.1); Sodium 138 mmol/L (137-145); Total Bilirubin 0.3 mg/dL (0.2-1.3); Total Protein 5.7 g/dL (6.3-8.2)
--- NOTE | 2024-12-18 15:17 | CT ---
EXAMINATION TYPE: CT brain armando jones con DATE OF EXAM: 12/18/2024 COMPARISON: CT brain dated 12/19/[address] brain and C-spine dated 04/05/2022 CLINICAL INDICATION: Female, 74 years old with history of fall; [facility], unwitnessed fall TECHNIQUE: CT scan of the head and cervical spine are performed without contrast. CT DLP: 1256.[address] CTDI: mGy Automated exposure control for dose reduction was used. Findings: Head CT: Ventricles, basal cisterns and sulci over convexities within mildly enlarged consistent with mild gen eralized atrophy. There is marked decreased density in the periventricular white matter consistent with marked chronic ischemic white matter demyelination. There is a remote lacunar infarct in the left thalamus. There is no mass effect or shift in midline s tructures. There is no acute intra or extra-axial hemorrhage. Posterior fossa including the brainstem, fourth ventricle and cerebellar pontine angles are grossly n ormal. The intraorbital contents appear normal and symmetric. There are mild inflammatory changes in the lef t maxillary sinus. CT cervical spine: Craniovertebral junction relationships and prevertebral soft tissues are normal. The cervical vertebral segments are normal in height and alignment and there is no fracture subluxati on. There is loss of normal cervical lordosis. There is moderate to marked degenerative disease at C3-4, C4-5, C5-6 and C6-7 levels where there is m oderate to marked disc space narrowing and mild to moderate spondylosis. There is mild facet arthropa thy in the upper cervical spine on the right. There is mild to moderate degeneration of the uncoverte bral joints in the mid and lower cervical spine. The bony cervical canal is widely patent. There is mild multilevel bony neural foraminal encroachment bilaterally. The paraspinal soft tissues unremarkable. IMPRESSION: 1. Head CT: No acute bleed or mass effect. Senescent changes as described above. 2. CT cervical spine: No acute trauma. Degenerative disc disease and osteoarthritis as described alla romero [facility], , 12/18/2024 3:15 PM
[2024-12-18 16:00] LABS: INR 0.9 (<1.2); Partial Thromboplastin Time 22.2 sec (22.0-30.0); Prothrombin Time 10.4 sec (10.0-12.5)
[2024-12-18] MEDS ORDERED: NALOXONE 0.4 MG/ML 1 ML VIAL IV PRN (16:07)
--- NOTE | 2024-12-18 16:08 | XR ---
EXAMINATION TYPE: XR pelvis AP view, XR femur LT DATE OF EXAM: 12/18/2024 3:48 PM COMPARISON: 04/05/2022. CLINICAL INDICATION: Female, 74 years old with history of fall; pain [facility] TECHNIQUE: XR pelvis AP view, XR femur LT, examined in a single projection. Frontal and lateral views of the left femur FINDINGS: Acute fracture of the left proximal femur through the intertrochanteric region is partially in the [id number] there is varus deformity. The remainder of the pelvis appears intact. Right hip and left hip both imaging Mild degeneration with joint space or mass effect limits. Multilevel degen erative changes of the spine wo fibrillation and facet arthropathy. Degeneration changes of the knee with osteophyte formation joint effusion is present. Diffuse osseous demineralization. IMPRESSION: Proximal left femur intertrochanteric fracture with varus deformity. [facility], , 12/18/2024 4:06 PM
--- NOTE | 2024-12-18 16:12 | XR ---
EXAMINATION TYPE: XR chest 1V DATE OF EXAM: 12/18/2024 3:48 PM COMPARISON: Chest radiographs from 06/19/2024. CLINICAL INDICATION: Female, 74 years old with history of fall; [facility] TECHNIQUE: XR chest 1V Frontal view of the chest. FINDINGS: Lungs/Pleura: There is flattening of the diaphragm with increased lucency of the lungs. No evidence o f pneumothorax, pleural effusion or focal consolidation. Pulmonary vascularity: Unremarkable. Heart/mediastinum: Cardiomediastinal silhouette is unremarkable. Atherosclerotic calcifications are seen in the aorta. Musculoskeletal: No acute osseous pathology. IMPRESSION: 1. No acute cardiopulmonary disease process. 2. COPD changes. [facility], , 12/18/2024 4:10 PM
[2024-12-18] MEDS: SODIUM CHLORIDE 0.9% 1,000 ML IV SCH (16:42)
--- NOTE | 2024-12-18 18:05 | CT ---
EXAMINATION TYPE: CT hip LT wo con CT DLP: 478.5 mGycm, Automated exposure control for dose reduction was used. DATE OF EXAM: 12/18/2024 5:49 PM COMPARISON: Pelvic and left femur radiographs of the same date CLINICAL INDICATION:Female, 74 years old with history of left hip fracture, with 3D reconstructions; [facility], HIP FX TECHNIQUE: Axial images were obtained of the left hip without the use of IV contrast. Additional cor onal and sagittal reformatted images and soft tissue and bone window were obtained for review. 3-D re construction was created on a separate workstation. FINDINGS: Diffuse bone demineralization with limits evaluation. Redemonstration of acute mild to moderately dis placed comminuted fracture of the left proximal femur through the intertrochanteric region. There is varus deformity. No dislocation. Osteoarthritic changes of the left hip. Degenerative changes of the left SI joint and pubic symphysis. Sclerotic focus within the left pubic ramus likely representing a benign bone island. No significant soft tissue swelling or joint effusion is identified. No focal mus cular atrophy or edema is identified. Vascular sclerosis. Sigmoid diverticulosis without evidence for acute diverticulitis. IMPRESSION: Redemonstration of acute comminuted displaced fracture of the left proximal femur through the intertr ochanteric region. [facility], , 12/18/2024 6:03 PM
--- NOTE | 2024-12-18 18:55 | P.HPOR ---
History of Present Illness H&P Date: 12/18/24 Chief Complaint: Left hip pain Patient presented to the emergency room after she was found in her bathroom at her living facility with a reported ground-level fall. Patient is unable to detail events of the fall. She notes pain to the left hip that is well localized without radiation. Pain is worse with any attempted motion of the left hip. She denies any further areas of pain or injury at this time other than a minor skin tear to her left forearm. She denies any numbness to the left lower extremity. At baseline patient is [a walker ambulator]. There is no reported history of use of blood thinners. At baseline patient uses a walker for ambulation. Patient's son is primarily responsible for her medical decision making due to baseline cognitive deficits. She has reported history of COPD for which she is on home oxygen. Review of Systems Constitutional: Denies chills, Denies fever Respiratory: Reports home oxygen Musculoskeletal: Reports as per HPI Neurological: Reports confusion, Denies numbness Psychiatric: Reports confusion Past Medical History Past Medical History: COPD, Hypertension Additional Past Medical History / Comment(s): [place] History of Any Multi-Drug Resistant Organisms: None Reported Date of last positivie culture/infection: 01/18/24 MDRO Source:: URINE Past Surgical History: Section Additional Past Surgical History / Comment(s): vain stripping left leg Past Anesthesia/Blood Transfusion Reactions: No Reported Reaction Past Psychological History: Anxiety, Depression Smoking Status: Current every day smoker Past Alcohol Use History: None Reported Past Drug Use History: None Reported - Past Family History Mother Family Medical History: No Reported History Additional Family Medical History / Comment(s): at 80 years old of old age. Father Family Medical History: No Reported History Additional Family Medical History / Comment(s): at 85 years old of old age. Medications and Allergies Home Medications Medication Instructions Recorded Confirmed Type Folic Acid 1 mg PO DAILY #30 tablet 12/25/23 12/18/24 Rx Acetaminophen [Tylenol] 650 mg PO Q6H PRN 01/17/24 12/18/24 History Omeprazole [PriLOSEC] 20 mg PO DAILY 06/18/24 12/18/24 History Vit C/E/Zn/Coppr/Lutein/Zeaxan 1 cap PO DAILY 06/18/24 12/18/24 History [Preservision Areds 2 Softgel] ALPRAZolam [Xanax] 0.25 mg PO TID@0900,1300,2100 12/18/24 12/18/24 History Cholecalciferol (Vitamin D3) 50 mcg PO DAILY 12/18/24 12/18/24 History [Vitamin D3 (50 Mcg = 2000 Iu)] Fluticasone/Umeclidin/Vilanter 1 puff INHALATION RT-DAILY 12/18/24 12/18/24 History [Trelegy Ellipta 200-62.5-25] HYDROcodone/APAP 5-325MG [[place] 1 tab PO Q6H PRN 12/18/24 12/18/24 History 5-325] Lidocaine Viscous 2% [Xylocaine 2 ml PO DAILY PRN 12/18/24 12/18/24 History Viscous] Losartan [Cozaar] 50 mg PO DAILY 12/18/24 12/18/24 History Sennosides [Senokot] 8.6 mg PO DAILY 12/18/24 12/18/24 History predniSONE 10 mg PO DAILY 12/18/24 12/18/24 History Allergies Allergy/AdvReac Type Severity Reaction Status Date / Time No Known Allergies Allergy Verified 12/18/24 14:13 Physical Examination Neuro: Patient is alert to person only Cardiovascular: Patient has regular heart rate, she has intact distal pulses to all extremities Pulmonary: Patient is requiring room oxygen, no acute respiratory distress Skill skeletal: Left hip Left leg is shortened and externally rotated Skin is intact around the hip and throughout the left lower extremity Tender to palpation globally around the hip Pain with any attempted active or passive motion Has intact light touch sensation throughout the left lower extremity He is able to actively plantar and dorsiflex the left ankle with 5/5 strength She has an intact dorsalis pedis pulse and brisk capillary refill less than 3 seconds to the left foot On tertiary exam there is a small skin tear noted to the mid ulnar left forearm however there is no bony tenderness or instability in this area, there is no further areas of tenderness or instability to the bilateral upper extremities, right lower extremity and distal left lower extremity. Results - Labs Labs: Abnormal Lab Results - Last 24 Hours (Table) 12/18/24 12/18/24 Range/Units 13:52 13:52 WBC 11.49 H (4.50-10.00) 10*3/uL RBC 3.53 L (4.10-5.20) 10*6/uL Hgb 9.9 L (12.0-15.0) g/dL Hct 32.1 L (37.2-46.3) % MCHC 30.8 L (32.0-37.0) g/dL MPV 9.1 L (9.5-12.2) fL Immature Gran # 0.28 H (0.00-0.04) 10*3/uL Neutrophils # 9.17 H (1.80-7.70) 10*3/uL BUN 24 H (7-17) mg/dL Creatinine 0.49 L (0.52-1.04) mg/dL Calcium 8.1 L (8.4-10.2) mg/dL Total Protein 5.7 L (6.3-8.2) g/dL Albumin 3.0 L (3.5-5.0) g/dL H & H 12/18/24 Range/Units 13:52 Hgb 9.9 L (12.0-15.0) g/dL Hct 32.1 L (37.2-46.3) % Coagulation 12/18/24 Range/Units 15:13 INR 0.9 (<1.2) Result Diagrams: 12/18/24 13:52 12/18/24 13:52 - Diagnostic results Hip x-ray: image reviewed (Images show a comminuted and displaced intertrochanteric femur fracture with mild degenerative changes of the left hip) Hip CT: image reviewed (Images show a comminuted and displaced intertrochanteric femur fracture with mild degenerative changes of the left hip) Assessment and Plan (1) Intertrochanteric fracture of left hip Current Visit: Yes Status: Acute Code(s): S72.142A - DISPLACED INTERTROCHANTERIC FRACTURE OF LEFT FEMUR, INIT SNOMED Code(s): 896554448 Plan: Detailed discussion was had with the patient and her son who serves as her power of coke oven mason phone conversation was had with the son regarding the nature of the injury. With a fracture as a result of minor trauma this is an indication of poor bone quality and they are encouraged to discuss further metabolic testing and workup with their primary care physician in coordination with our team and possibly even an stringing machine tender. They sustained an unstable hip fracture. Based on their baseline ambulatory status this is an injury that would greatly benefit from surgical intervention in order to provide patient with the best chance of regaining mobility after this injury. We discussed non operative treatment is theoretically possible but would require prolonged non weight bearing to the affected leg which would ultimately result in prolonged immobilization and is associated with significantly increased mortality rates. We discussed that the most appropriate surgical option for this injury would be [a cephalomedullary nail]. The risks of surgery include scarring, risk of swelling and possible permanent swelling of the affected extremity, superficial vs deep infections, damage to surrounding structures including muscles, nerve, tendons, blood vessels, hardware failure, compartment syndrome, fracture mal or non union, need for additional future surgery. Benefits include stabilizing the fracture and helping with baseline pain, providing the patient with the opportunity to weight bear on the extremity. We also discussed the likely post operative course after surgery including several days in the hospital after surgery and evaluation by the PT and OT staff to aid in determining the proper destination after their hospitalization, likely this will require a period of time at a rehab or nursing facility. We also discussed realistic expectations regarding function after this injury, the best case scenario is she returns to there baseline functional level but many times patients become more dependent on support aids such as walkers/canes/or wheelchairs based on their previous level of function. Patients son who serves as her medical decision maker is in agreement with this plan and wishes to proceed with surgery and has provided verbal consent for the procedure, we will plan to proceed with left hip cephalomedullary fixation [facility]B to the [facility] appreciate medical team for preoperative medical assessment villalpando catheter/pure wick placement multimodal pain regimen PT/OT evaluations post op pending medical evaluation will plan for surgery tomorrow afternoon NPO after midnight
[2024-12-18] MEDS: MORPHINE SULFATE 4 MG/ML SYRINGE IV PRN (19:15)
[2024-12-18] MEDS: FAMOTIDINE 20 MG TAB PO SCH (22:53)
--- NOTE | 2024-12-19 11:13 | P.CONS ---
History of Present Illness - Reason for Consult Consult date: 12/19/24 Medical management, fall, left intertrochanteric fracture - History of Present Illness This is a pleasant 74-year-old female who presented to the ER after a fall while at a custodial. Patient was noted to have a left proximal femur fracture. Patient is an extremely poor historian and son is power of assistant district attorney although is willing to proceed with surgery to improve quality of life as patient was walking prior to this. Patient does follow with Dr. Armenta in the outpatient setting with a past medical history of COPD with chronic oxygen use, hypertension, hard of hearing, anxiety/depression, former smoker. Imaging reviewed in the ER noted to have proximal left femur intertrochanteric fracture with varus deformity, and hip CT reveals redemonstration of the acute comminuted displaced fracture of the left proximal femur. Chest x-ray shows no acute cardiopulmonary disease process. Labs reviewed reveal a mild white count elevation of 11.49, hemoglobin is 9.9, platelets 210, sodium is 138 with a potassium of 3.6, BUN is 24 with a creatinine of 0.49. Patient is currently n.p.o. and is scheduled for surgical intervention this afternoon. EKG showing sinus rhythm and other vital signs within normal limits. Given patient's comorbidities, patient would be considered low to moderate risk for surgical intervention and is medically stable to proceed with surgery with orthopedics. Medical will continue to follow with orthopedics during hospitalization REVIEW OF SYSTEMS: CONSTITUTIONAL: No fever, no malaise, no fatigue. HEENT: No recent visual problems or hearing problems. Denied any sore throat. CARDIOVASCULAR: No chest pain, orthopnea, PND, no palpitations, no syncope. PULMONARY: No shortness of breath, no cough, no hemoptysis. GASTROINTESTINAL: No diarrhea, no nausea, no vomiting, no abdominal pain. NEUROLOGICAL: No headaches, no weakness, no numbness. HEMATOLOGICAL: Denies any bleeding or petechiae. GENITOURINARY: Denies any burning micturition, frequency, or urgency. MUSCULOSKELETAL/RHEUMATOLOGICAL: Denies any joint pain, swelling, or any muscle pain. ENDOCRINE: Denies any polyuria or polydipsia. The rest of the 14-point review of systems is negative. PHYSICAL EXAMINATION: GENERAL: The patient is alert and oriented x1, not in any acute distress. Well developed, elderly appearing, thin built HEENT: Pupils are round and equally reacting to light. EOMI. No scleral icterus. No conjunctival pallor. Normocephalic, atraumatic. No pharyngeal erythema. No thyromegaly. CARDIOVASCULAR: S1 and S2 muffled PULMONARY: Diminished breath sounds bilaterally otherwise chest is clear to auscultation, no wheezing or crackles. ABDOMEN: Soft, nontender, nondistended, normoactive bowel sounds. No palpable organomegaly. MUSCULOSKELETAL: No joint swelling or deformity. EXTREMITIES: No cyanosis, clubbing, or pedal edema. Left lower extremity externally rotated and shortened NEUROLOGICAL: Gross neurological examination did not reveal any focal deficits. Diffusely weak SKIN: No rashes. Assessment: Proximal left femur intertrochanteric fracture with varus deformity secondary to mechanical fall while at [facility] History of COPD, not in exacerbation Chronic hypoxic respiratory failure, wears oxygen outpatient History of hypertension Hard of hearing Anxiety/depression Former smoker Memory impairment Remote lacunar infarct in the left thalamus with no mass effect or midline shift noted on CT brain GI prophylaxis DVT prophylaxis Full code Plan: Patient admitted under orthopedics status post mechanical fall while at [facility] noted to have a left femur proximal fracture and is scheduled to undergo intramedullary nailing and will await surgical report Given patient's comorbidities, patient considered low to moderate risk for surgical intervention and would recommend proceeding with surgery and son who is power of assistant district attorney is agreeable to proceed with surgery as patient was in dependent using a walker prior to this. Recommend PT/OT therapy once cleared by orthopedics and incentive spirometer use Home medications will be reviewed and resumed once appropriate Patient is currently n.p.o. and scheduled to undergo surgical intervention sometime this afternoon Patient is medically stable to proceed with surgical intervention and medicine will continue to follow with orthopedics during hospitalization. Thank you kindly for this consultation. The impression and plan of care has been dictated by Heather Pastrana, Nurse Practitioner as directed. Dr. Farzad MD I have performed a history and examination and MDM of this patient, discussed the same with the dictator, and agree with the dictator's assessment and plan as written ,documented as a scribe. Based on total visit time, I have performed more than 50% of the visit. Past Medical History Past Medical History: COPD, Hypertension Additional Past Medical History / Comment(s): [facility] History of Any Multi-Drug Resistant Organisms: None Reported Year Discovered:: 01/18/24 MDRO Source:: URINE Past Surgical History: Section Additional Past Surgical History / Comment(s): vein stripping left leg Past Anesthesia/Blood Transfusion Reactions: No Reported Reaction Past Psychological History: Anxiety, Depression Smoking Status: Former smoker Past Alcohol Use History: None Reported Additional Past Alcohol Use History / Comment(s): Pt states she has not had alcohol in 2 years. Past Drug Use History: None Reported - Past Family History Mother Family Medical History: No Reported History Additional Family Medical History / Comment(s): at 80 years old of old age. Father Family Medical History: No Reported History Additional Family Medical History / Comment(s): at 85 years old of old age. Medications and Allergies Home Medications Medication Instructions Recorded Confirmed Type Folic Acid 1 mg PO DAILY #30 tablet 12/25/23 12/18/24 Rx Acetaminophen [Tylenol] 650 mg PO Q6H PRN 01/17/24 12/18/24 History Omeprazole [PriLOSEC] 20 mg PO DAILY 06/18/24 12/18/24 History Vit C/E/Zn/Coppr/Lutein/Zeaxan 1 cap PO DAILY 06/18/24 12/18/24 History [Preservision Areds 2 Softgel] ALPRAZolam [Xanax] 0.25 mg PO TID@0900,1300,2100 12/18/24 12/18/24 History Cholecalciferol (Vitamin D3) 50 mcg PO DAILY 12/18/24 12/18/24 History [Vitamin D3 (50 Mcg = 2000 Iu)] Fluticasone/Umeclidin/Vilanter 1 puff INHALATION RT-DAILY 12/18/24 12/18/24 History [Trelegy Ellipta 200-62.5-25] HYDROcodone/APAP 5-325MG [[place]ver 1 tab PO Q6H PRN 12/18/24 12/18/24 History 5-325] Lidocaine Viscous 2% [Xylocaine 2 ml PO DAILY PRN 12/18/24 12/18/24 History Viscous] Losartan [Cozaar] 50 mg PO DAILY 12/18/24 12/18/24 History Sennosides [Senokot] 8.6 mg PO DAILY 12/18/24 12/18/24 History predniSONE 10 mg PO DAILY 12/18/24 12/18/24 History Allergies Allergy/AdvReac Type Severity Reaction Status Date / Time No Known Allergies Allergy Verified 12/18/24 14:13 Physical Exam Vitals: Vital Signs Temp Pulse Pulse Resp BP BP Pulse Ox 12/19/24 10:16 96 12/19/24 06:57 98.5 F 91 16 104/69 89 L 12/19/24 00:24 98.2 F 85 20 125/79 98 12/18/24 23:09 83 154/84 12/18/24 20:10 98.1 F 80 16 169/84 92 L 12/18/24 19:44 97.6 F 77 22 160/95 95 12/18/24 19:00 76 18 138/72 100 12/18/24 16:43 78 20 154/85 100 12/18/24 15:26 75 22 96 12/18/24 13:55 75 20 184/94 92 L 12/18/24 13:46 97.6 F 73 22 184/94 88 L Intake and Output 12/18/24 12/19/24 12/19/24 22:59 06:59 14:59 Intake Total 60 Balance 60 Intake: Oral 60 Other: Weight 51.075 kg Results CBC & Chem 7: 12/18/24 13:52 12/18/24 13:52 Labs: Abnormal Lab Results - Last 24 Hours (Table) 12/18/24 12/18/24 Range/Units 13:52 13:52 WBC 11.49 H (4.50-10.00) 10*3/uL RBC 3.53 L (4.10-5.20) 10*6/uL Hgb 9.9 L (12.0-15.0) g/dL Hct 32.1 L (37.2-46.3) % MCHC 30.8 L (32.0-37.0) g/dL MPV 9.1 L (9.5-12.2) fL Immature Gran # 0.28 H (0.00-0.04) 10*3/uL Neutrophils # 9.17 H (1.80-7.70) 10*3/uL BUN 24 H (7-17) mg/dL Creatinine 0.49 L (0.52-1.04) mg/dL Calcium 8.1 L (8.4-10.2) mg/dL Total Protein 5.7 L (6.3-8.2) g/dL Albumin 3.0 L (3.5-5.0) g/dL
--- NOTE | 2024-12-19 12:26 | P.PN ---
Subjective Progress Note Date: 12/19/24 Principal diagnosis: Left Intertrochanteric Hip fracture No acute issues for her overnight, continues to note pain to the left hip but denies any new symptoms or areas of pain. Denies any chest pain, breathing is non labored on supplemental O2. Again discussed her injury with her today and the need for surgical intervention to stabilize her hip and allow her to walk. Objective - Vital Signs Vital signs: Vital Signs Temp 98.5 F 12/19/24 06:57 Pulse 91 12/19/24 06:57 Resp 16 12/19/24 06:57 BP 104/69 12/19/24 06:57 Pulse Ox 89 L 12/19/24 06:57 FiO2 Intake & Output 12/18/24 12/19/24 12/19/24 18:59 06:59 18:59 Intake Total 60 Balance 60 Weight 51.075 kg 51.075 kg Intake: Oral 60 - Exam Tertiary exam today continues to reveal no further areas of tenderness, instability or trauma to the C spine, bilateral upper extremities, right lower extremity and distal left lower extremity Left Hip skin intact TTP as previously noted around the hip patient continues to have intact light touch sensation throughout the left leg leg remains shortened and externally rotated palpable DP pulse and brisk capillary refill to the left foot less than 3 seconds - Labs CBC & Chem 7: 12/18/24 13:52 12/18/24 13:52 Labs: Abnormal Lab Results - Last 24 Hours (Table) 12/18/24 12/18/24 Range/Units 13:52 13:52 WBC 11.49 H (4.50-10.00) 10*3/uL RBC 3.53 L (4.10-5.20) 10*6/uL Hgb 9.9 L (12.0-15.0) g/dL Hct 32.1 L (37.2-46.3) % MCHC 30.8 L (32.0-37.0) g/dL MPV 9.1 L (9.5-12.2) fL Immature Gran # 0.28 H (0.00-0.04) 10*3/uL Neutrophils # 9.17 H (1.80-7.70) 10*3/uL BUN 24 H (7-17) mg/dL Creatinine 0.49 L (0.52-1.04) mg/dL Calcium 8.1 L (8.4-10.2) mg/dL Total Protein 5.7 L (6.3-8.2) g/dL Albumin 3.0 L (3.5-5.0) g/dL Assessment and Plan Assessment: Left Intertrochanteric hip fracture (1) Intertrochanteric fracture of left hip Current Visit: Yes Status: Acute Code(s): S72.142A - DISPLACED INTERTROCHANTERIC FRACTURE OF LEFT FEMUR, INIT SNOMED Code(s): 500082934 Plan: Pending medical evaluation however anticipate proceeding with surgery this afternoon NWB to the LLE hold dvt ppx for today villalpando catheter placement multimodal pain regimen NPO pending surgery appreciate medince input regarding preoperative evaluation and optimization
[2024-12-19] MEDS: IPRATROPIUM-ALBUTEROL 3 ML NEB INHALATION STA (17:43)
[2024-12-19] MEDS: IV FLUID CONTINUATION 1,000 ML IV ONE (17:50)
[2024-12-19] MEDS: LACTATED RINGERS 1,000 ML BAG IV STA (17:50)
[2024-12-19] MEDS: BUDESONIDE 0.5 MG/2 ML NEBU INHALATION STA (17:56)
[2024-12-19] MEDS ORDERED: KETAMINE HCL IN 0.9 % NACL 50 MG/5 ML SYRINGE ONE (18:01)
[2024-12-19] MEDS ORDERED: TRANEXAMIC 1,000 MG/100ML-NACL PREMIX BAG ONE (18:01)
[2024-12-19] MEDS ORDERED: MIDAZOLAM 2 MG/2 ML VIAL ONE (18:01)
[2024-12-19] MEDS ORDERED: PROPOFOL 10 MG/ML 20 ML VIAL IV ONE (18:01)
[2024-12-19] MEDS ORDERED: PHENYLEPHRINE 10 MG/ML VIAL ONE (18:01)
[2024-12-19] MEDS: LACTATED RINGERS 1,000 ML IV ONE (20:14)
[2024-12-19] MEDS ORDERED: HYDROcodone/APAP 5-325MG 1 EACH TAB PO PRN (20:34)
[2024-12-19] MEDS ORDERED: MAGNESIUM HYDROXIDE 2,400 MG/30 ML CUP PO PRN (20:34)
[2024-12-19] MEDS ORDERED: traMADol 50 MG TAB PO PRN (20:34)
--- NOTE | 2024-12-19 20:37 | FL ---
Fluoroscopy INDICATION: Pain FINDINGS: Fluoroscopy time: 2 minutes 7 seconds. Total dose area product (DAP) in uGy*m?, mGy*cm? (or similar): 5.4267 Images obtained: 0. Images document the left hip IT nail IMPRESSION: 1. Documentation of fluoroscopy. [facility], , 12/19/2024 8:35 PM
--- NOTE | 2024-12-19 20:40 | XR ---
Fluoroscopy INDICATION: Pain FINDINGS: Fluoroscopy time: 2 minutes 7 seconds. Total dose area product (DAP) in uGy*m?, mGy*cm? (or similar): 5.4267 Images obtained: 6. Images document IT nail left hip IMPRESSION: 1. Documentation of fluoroscopy. [facility], , 12/19/2024 8:37 PM
[2024-12-19] MEDS ORDERED: ACETAMINOPHEN TAB 325 MG TAB PO PRN (21:14)
[2024-12-19] MEDS ORDERED: LIDOCAINE VISCOUS 2% 15 ML CUP PO PRN (21:16)
[2024-12-19] MEDS ORDERED: IPRATROPIUM-ALBUTEROL 3 ML NEB INHALATION PRN (21:17)
--- NOTE | 2024-12-19 21:20 | XR ---
EXAMINATION TYPE: XR Hip Limited LT DATE OF EXAM: 12/19/2024 9:09 PM COMPARISON: None. CLINICAL INDICATION: Female, 74 years old with history of s/p left hip IT nail, assess alignment, michelle n TECHNIQUE: AP view(s) obtained. FINDINGS: There is placement of a left hip pin. No new fractures are evident. Postsurgical soft tissue changes are present. IMPRESSION: 1. Placement of a left hip pin through an intertrochanteric fracture. [facility], , 12/19/2024 9:17 PM
[2024-12-19] MEDS: ceFAZolin 2 GM in DEXTROSE 5% IN WATER 50 ML IVPB ONE (21:31)
[2024-12-19] MEDS: SENNOSIDES-DOCUSATE SODIUM 1 EACH TAB PO SCH (21:49)
[2024-12-20] MEDS: ceFAZolin 2 GM in DEXTROSE 5% IN WATER 50 ML IVPB SCH (00:23)
[2024-12-20] MEDS: SYMBICORT 160-4.5 MCG INHALER INHALATION SCH (08:09)
[2024-12-20] MEDS: IPRATROPIUM-ALBUTEROL 3 ML NEB INHALATION SCH (08:09)
[2024-12-20] MEDS: TIOTROPIUM 2.5 MCG INHALER INHALATION SCH (08:16)
--- NOTE | 2024-12-20 09:02 | P.PN ---
Subjective Progress Note Date: 12/20/24 Principal diagnosis: Status post left hip IT nail This is a 74 year-old female post left hip IT nail. This is post-op day 1. The patient was evaluated at the bedside today. The patient denies nausea, vomiting, abdominal pain, shortness of breath, and chest pain this morning. She states she is having pain in the leg. The patient has not been up with physical therapy. Objective - Vital Signs Vital signs: Vital Signs Temp 96.8 F L 12/19/24 20:18 Pulse 110 H 12/20/24 08:27 Resp 19 12/19/24 20:59 BP 119/63 12/20/24 05:09 Pulse Ox 93 L 12/20/24 08:13 FiO2 Intake & Output 12/19/24 12/20/24 12/20/24 18:59 06:59 18:59 Intake Total 1000 200 Output Total 500 700 Balance 500 -500 Intake: IV 1000 200 Output: Urine 300 700 Estimated Blood Loss 200 Other: Voiding Method Indwelling Catheter - Exam The patient does appear in mild distress during my exam. Alert and orientated x1. Dressing is clean dry and intact. Incision appears fine with no erythema or active drainage. Calf is soft and nontender. Able to wiggle her toes. Sensation and circulatory status is intact. - Labs CBC & Chem 7: 12/20/24 05:58 12/20/24 05:58 Assessment and Plan (1) Status post hip surgery Current Visit: Yes Status: Acute Code(s): Z98.890 - OTHER SPECIFIED PO STPROCEDURAL STATES SNOMED Code(s): 741121550 (2) Intertrochanteric fracture of left hip Current Visit: Yes Status: Acute Code(s): S72.142A - DISPLACED INTERTROCHANTERIC FRACTURE OF LEFT FEMUR, INIT SNOMED Code(s): 537760413 Plan: 1. Continue pain control, I spoke with the nurse that she needs pain medication this morning. 2. Anticoagulation with Aspirin 81 mg BID 3. Start physical therapy and ambulation, weightbearing as tolerated with a walker. 4. Anticipate discharge to skilled rehab, likely next week. Patient was seen and independently examined and I agree with the above interval history and physical exam. Patient has some increased confusion today and notes pain to her left hip but denies any further acute issues such as chest pain or shortness of breath beyond her baseline. She continues to be neurovascularly intact to the left lower extremity, there is no calf or thigh tenderness apart from tenderness around her lateral incision sites. She has palpable DP pulse and brisk capillary refill throughout the left lower extremity. PT evaluations are still pending however as patient previously came from a living facility we anticipate discharge back to this facility as they do have therapy capabilities. Will obtain updated labs tomorrow to assess for any blood loss requiring intervention.
[2024-12-20] MEDS: SENNOSIDES 8.6 MG TAB PO SCH (09:06)
[2024-12-20] MEDS: HYDROcodone/APAP 5-325MG 1 EACH TAB PO PRN (09:06)
[2024-12-20] MEDS: FOLIC ACID 1 MG TAB PO SCH (09:07)
[2024-12-20] MEDS: VIT A,C & E-LUTEIN-MINERALS 1 EACH TAB PO SCH (09:07)
[2024-12-20] MEDS: CHOLECALCIFEROL 25 MCG (1000 IU) TABLET PO SCH (09:07)
[2024-12-20] MEDS: ASPIRIN 81 MG PO SCH (09:08)
[2024-12-20 10:06] LABS: Basophils # (A) 0.04 X 10*3/uL (0.00-0.10); Basophils % (A) 0.3 %; Eosinophils # (A) 0.01 X 10*3/uL (0.04-0.35); Eosinophils % (A) 0.1 %; HCT 25.1 % (37.2-46.3); HGB 7.7 g/dL (12.0-15.0); Lymphocytes # (A) 0.96 X 10*3/uL (0.90-5.00); Lymphocytes % (A) 8.1 %; MCH 27.5 pg (27.0-32.0); MCHC 30.7 g/dL (32.0-37.0); MCV 89.6 FL (80.0-97.0); Mean Platelet Volume 10.6 FL (9.5-12.2); Monocytes # (A) 0.72 X 10*3/uL (0.20-1.00); Monocytes % (A) 6.1 %; NRBC Per 100 WBC 0 X 10*3/uL (0.00-0.01); Neutrophils # (A) 9.99 X 10*3/uL (1.80-7.70); Neutrophils % (A) 84.8 %; Platelet Count 184 X 10*3/uL (140-440); RDW 17.2 % (11.5-14.5); WBC 11.79 X 10*3/uL (4.50-10.00)
[2024-12-20 10:09] LABS: Blood Urea Nitrogen 16.2 mg/dL (9.0-27.0); Calcium 7.8 mg/dL (8.7-10.3); Carbon Dioxide 22.8 mmol/L (21.6-31.8); Chloride 100 mmol/L (96-109); Glucose 93 mg/dL (70-110); Magnesium 1.7 mg/dL (1.5-2.4); Potassium 3.8 mmol/L (3.5-5.5); Sodium 135 mmol/L (135-145)
[2024-12-20 13:03] VITALS: BMI 18.1
[2024-12-20] MEDS: BENZOCAINE 20 % GEL 11.9 GM TUBE MM PRN (17:39)
--- NOTE | 2024-12-20 19:48 | P.PN ---
Subjective Progress Note Date: 12/20/24 - Reason for Consult Consult date: 12/19/24 Medical management, fall, left intertrochanteric fracture - History of Present Illness This is a pleasant 74-year-old female who presented to the ER after a fall while at a long term. Patient was noted to have a left proximal femur fracture. Patient is an extremely poor historian and son is power of health care attorney although is willing to proceed with surgery to improve quality of life as patient was walking prior to this. Patient does follow with Dr. Armenta in the outpatient setting with a past medical history of COPD with chronic oxygen use, hypertension, hard of hearing, anxiety/depression, former smoker. Imaging reviewed in the ER noted to have proximal left femur intertrochanteric fracture with varus deformity, and hip CT reveals redemonstration of the acute comminuted displaced fracture of the left proximal femur. Chest x-ray shows no acute cardiopulmonary disease process. Labs reviewed reveal a mild white count elevation of 11.49, hemoglobin is 9.9, platelets 210, sodium is 138 with a potassium of 3.6, BUN is 24 with a creatinine of 0.49. Patient is currently n.p.o. and is scheduled for surgical intervention this afternoon. EKG showing sinus rhythm and other vital signs within normal limits. Given patient's comorbidities, patient would be considered low to moderate risk for surgical intervention and is medically stable to proceed with surgery with orthopedics. Medical will continue to follow with orthopedics during hospitalization 12/20/2024 Patient is seen in follow-up today status post left hip IT nailing. Patient continues with pain although did receive a [place] and per nursing staff is resting. Recommend monitoring and limiting narcotic use closely on this patient given her mentation and age. Patient to also continue with breathing treatments and supplemental oxygen. Patient does chronically wear oxygen at [facility] in the outpatient setting. Plan will be for her to return there although will need updated PT/OT therapy notes. Encouraged increased oral intake although not much of an eater and would recommend aspiration precautions. Discontinue IV fluids. Patient's hemoglobin is 7.7 today with no active bleeding noted recommend to monitor closely, platelets are stable at 184. Sodium is 135 with a potassium of 3.8, BUN is 16.2 the creatinine is 0.6. Magnesium is 1.7. Patient is extremely hard of hearing and would recommend frequent reorientation. Seroquel as needed at night as needed if patient is becoming agitated Review of systems: Unable to assess as patient is asleep PHYSICAL EXAMINATION: GENERAL: The patient is alert and oriented x1, not in any acute distress. Well developed, elderly appearing, thin built HEENT: Pupils are round and equally reacting to light. EOMI. No scleral icterus. No conjunctival pallor. Normocephalic, atraumatic. No pharyngeal erythema. No thyromegaly. CARDIOVASCULAR: S1 and S2 muffled PULMONARY: Diminished breath sounds bilaterally with some bronchial congestion and coarse rhonchi, no significant wheezing noted ABDOMEN: Soft, nontender, nondistended, normoactive bowel sounds. No palpable organomegaly. MUSCULOSKELETAL: No joint swelling or deformity. EXTREMITIES: No cyanosis, clubbing, or pedal edema. Left Hip Surgical Dressing Is Dry and Intact NEUROLOGICAL: Gross neurological examination did not reveal any focal deficits. Diffusely weak SKIN: No rashes. Assessment: Proximal left femur intertrochanteric fracture with varus deformity secondary to mechanical fall while at [facility], status post left hip IT nailing History of COPD, not in exacerbation Chronic hypoxic respiratory failure, wears oxygen outpatient History of hypertension Hard of hearing Anxiety/depression Former smoker Memory impairment Remote lacunar infarct in the left thalamus with no mass effect or midline shift noted on CT brain GI prophylaxis DVT prophylaxis Full code Plan: Patient admitted under orthopedics status post mechanical fall while at [facility] noted to have a left femur proximal fracture and is underwent left hip IT nailing, postop day 1 Given patient's comorbidities, patient considered low to moderate risk for surgical intervention and would recommend proceeding with surgery and son who is power of health care attorney is agreeable to proceed with surgery as patient was independent using a walker prior to this. Recommend PT/OT therapy once cleared by orthopedics Continue to attempt to encourage incentive spirometer use at least 10 times every hour while awake. Discontinue IV fluids Home medications will be reviewed and resumed once appropriate Encouraged oral intake and small meals, supplements between meals, would recommend supervision with meals and aspiration precautions with head of the bed elevated 35 to 45 degrees at all times Monitor respiratory status closely as patient does have a history of COPD and chronically wears oxygen, recommend monitoring closely for any volume overload thank you kindly for this consultation. We will continue to follow with orthopedics during hospitalization The impression and plan of care has been dictated by Heather Pastrana, Nurse Practitioner as directed. Dr. Farzad MD I have performed a history and examination and MDM of this patient, discussed the same with the dictator, and agree with the dictator's assessment and plan as written ,documented as a scribe. Based on total visit time, I have performed more than 50% of the visit. Objective - Vital Signs Vital signs: Vital Signs Temp 99.1 F 12/20/24 14:28 Pulse 96 12/20/24 18:36 Resp 18 12/20/24 14:28 BP 111/63 12/20/24 14:28 Pulse Ox 93 L 12/20/24 14:28 FiO2 Intake & Output 12/20/24 12/20/24 12/21/24 06:59 18:59 06:59 Intake Total 200 410 Output Total 700 300 Balance -500 110 Weight 51.075 kg Intake: IV 200 Intake, IV Titration 160 Amount Sodium Chloride 0.9% 1, 160 000 ml @ 20 mls/hr IV . Q24H JOCELYN Rx#:[id number] Oral 250 Output: Urine 700 300 Other: Voiding Method Indwelling Catheter Indwelling Catheter - Labs CBC & Chem 7: 12/20/24 05:58 12/20/24 05:58 Labs: Abnormal Lab Results - Last 24 Hours (Table) 12/20/24 12/20/24 Range/Units 05:58 05:58 WBC 11.79 H (4.50-10.00) X 10*3/uL RBC 2.80 L (4.10-5.20) X 10*6/uL Hgb 7.7 L (12.0-15.0) g/dL Hct 25.1 L (37.2-46.3) % MCHC 30.7 L (32.0-37.0) g/dL RDW 17.2 H (11.5-14.5) % Immature Gran # 0.07 H (0.00-0.04) X 10*3/uL Neutrophils # 9.99 H (1.80-7.70) X 10*3/uL Eosinophils # 0.01 L (0.04-0.35) X 10*3/uL Anion Gap 12.20 H (4.00-12.00) mmol/L BUN/Creatinine Ratio 27.00 H (12.00-20.00) Ratio Calcium 7.8 L (8.7-10.3) mg/dL
[2024-12-20] MEDS: HYDROmorphone 0.5 MG/0.5 ML SYRINGE IVP PRN (23:12)
--- NOTE | 2024-12-21 09:37 | P.PN ---
Subjective Progress Note Date: 12/21/24 Principal diagnosis: Status post left hip IT nail This is a 74 year-old female post left hip IT nail. This is post-op day 2. The patient was evaluated at the bedside today. The patient denies nausea, vomiting, abdominal pain, shortness of breath, and chest pain this morning. She denies any pain right now. No new complaints. Objective - Vital Signs Vital signs: Vital Signs Temp 97.8 F 12/21/24 09:32 Pulse 86 12/21/24 09:32 Resp 13 12/21/24 09:32 BP 99/66 12/21/24 09:32 Pulse Ox 89 L 12/21/24 09:32 FiO2 Intake & Output 12/20/24 12/21/24 12/21/24 18:59 06:59 18:59 Intake Total 410 Output Total 300 350 Balance 110 -350 Weight 51.075 kg Intake: Intake, IV Titration 160 Amount Sodium Chloride 0.9% 1, 160 000 ml @ 20 mls/hr IV . Q24H [facility] Rx#:[id number] Oral 250 Output: Urine 300 350 Other: Voiding Method Indwelling Catheter Indwelling Catheter Indwelling Catheter - Exam The patient is no acute distress this morning. Wakes up easily from sleeping. A lert and orientated x1. Dressing is clean dry and intact. Incision appears fine with no erythema or active drainage. Calf is soft and nontender. Able to wiggle her toes. Sensation and circulatory status is intact. - Labs CBC & Chem 7: 12/20/24 05:58 12/20/24 05:58 Labs: Abnormal Lab Results - Last 24 Hours (Table) 12/20/24 12/20/24 Range/Units 05:58 05:58 WBC 11.79 H (4.50-10.00) X 10*3/uL RBC 2.80 L (4.10-5.20) X 10*6/uL Hgb 7.7 L (12.0-15.0) g/dL Hct 25.1 L (37.2-46.3) % MCHC 30.7 L (32.0-37.0) g/dL RDW 17.2 H (11.5-14.5) % Immature Gran # 0.07 H (0.00-0.04) X 10*3/uL Neutrophils # 9.99 H (1.80-7.70) X 10*3/uL Eosinophils # 0.01 L (0.04-0.35) X 10*3/uL Anion Gap 12.20 H (4.00-12.00) mmol/L BUN/Creatinine Ratio 27.00 H (12.00-20.00) Ratio Calcium 7.8 L (8.7-10.3) mg/dL Assessment and Plan (1) Status post hip surgery Current Visit: Yes Status: Acute Code(s): Z98.890 - OTHER SPECIFIED POSTPROCEDURAL STATES SNOMED Code(s): 274997783 (2) Intertrochanteric fracture of left hip Current Visit: Yes Status: Acute Code(s): S72.142A - DISPLACED INTERTROCHANTERIC FRACTURE OF LEFT FEMUR, INIT SNOMED Code(s): 639388716 Plan: 1. Continue pain control 2. Anticoagulation with Aspirin 81 mg BID 3. Continue physical therapy and ambulation, weightbearing as tolerated with a walker. 4. Anticipate discharge back to [facility], likely in the next 1-2 days. Patient was seen and independently examined today and I agree with the above interval history and updated exam/plan. Overall patient seems to be in less pain today, has been tolerating a diet, denies any new issues such as chest pain or shortness of breath above her baseline. Patient remains neurovascularly intact to the left lower extremity. Updated labs reviewed which showed a drop in her hemoglobin to 7.7, patient has not been able to ambulate significantly at this time however given the level below 8 we will plan for transfusion. Continue with PT/OT evaluations and anticipate discharge back to her living facility in the coming days. Dressings may remain in place, should they be saturated we will replace them with a new similar dressing prior to her discharge.
--- NOTE | 2024-12-21 10:12 | P.PN ---
Subjective Progress Note Date: 12/21/24 - Reason for Consult Consult date: 12/19/24 Medical management, fall, left intertrochanteric fracture - History of Present Illness This is a pleasant 74-year-old female who presented to the ER after a fall while at a snf. Patient was noted to have a left proximal femur fracture. Patient is an extremely poor historian and son is power of senior attorney although is willing to proceed with surgery to improve quality of life as patient was walking prior to this. Patient does follow with Dr. Armenta in the outpatient setting with a past medical history of COPD with chronic oxygen use, hypertension, hard of hearing, anxiety/depression, former smoker. Imaging reviewed in the ER noted to have proximal left femur intertrochanteric fracture with varus deformity, and hip CT reveals redemonstration of the acute comminuted displaced fracture of the left proximal femur. Chest x-ray shows no acute cardiopulmonary disease process. Labs reviewed reveal a mild white count elevation of 11.49, hemoglobin is 9.9, platelets 210, sodium is 138 with a potassium of 3.6, BUN is 24 with a creatinine of 0.49. Patient is currently n.p.o. and is scheduled for surgical intervention this afternoon. EKG showing sinus rhythm and other vital signs within normal limits. Given patient's comorbidities, patient would be considered low to moderate risk for surgical intervention and is medically stable to proceed with surgery with orthopedics. Medical will continue to follow with orthopedics during hospitalization 12/20/2024 Patient is seen in follow-up today status post left hip IT nailing. Patient continues with pain although did receive a [place] and per nursing staff is resting. Recommend monitoring and limiting narcotic use closely on this patient given her mentation and age. Patient to also continue with breathing treatments and supplemental oxygen. Patient does chronically wear oxygen at [facility] in the outpatient setting. Plan will be for her to return there although will need updated PT/OT therapy notes. Encouraged increased oral intake although not much of an eater and would recommend aspiration precautions. Discontinue IV fluids. Patient's hemoglobin is 7.7 today with no active bleeding noted recommend to monitor closely, platelets are stable at 184. Sodium is 135 with a potassium of 3.8, BUN is 16.2 the creatinine is 0.6. Magnesium is 1.7. Patient is extremely hard of hearing and would recommend frequent reorientation. Seroquel as needed at night as needed if patient is becoming agitated 12/21/2024 Patient seen in follow-up today with no acute overnight issues noted per nursing staff. Plan will be for return to [facility] possibly in the next 1 to 2 days. Patient does chronically wear oxygen outpatient and is saturating 100% on 6 L, recommending weaning FiO2 at least down to 4 L. Encourage sitting up more frequently and oral intake to be supervised and continuing to monitor for aspiration precautions. Patient is afebrile and no reports of chest pain or palpitations noted. Await reevaluation by PT/OT therapy on Sunday with case management to follow and plans on discharging to [facility]. Patient resides there. Review of systems: Unable to assess as patient is asleep PHYSICAL EXAMINATION: GENERAL: The patient is asleep but easily arousable, alert and oriented x1, not in any acute distress. Pleasant, well developed, elderly appearing, thin built HEENT: Pupils are round and equally reacting to light. EOMI. No scleral icterus. No conjunctival pallor. Normocephalic, atraumatic. No pharyngeal erythema. No thyromegaly. CARDIOVASCULAR: S1 and S2 muffled PULMONARY: Diminished breath sounds bilaterally with some bronchial congestion and coarse rhonchi, no significant wheezing noted ABDOMEN: Soft, nontender, nondistended, normoactive bowel sounds. No palpable organomegaly. MUSCULOSKELETAL: No joint swelling or deformity. EXTREMITIES: No cyanosis, clubbing, or pedal edema. Left Hip Surgical Dressing Is Dry and Intact NEUROLOGICAL: Gross neurological examination did not reveal any focal deficits. Diffusely weak SKIN: No rashes. Assessment: Proximal left femur intertrochanteric fracture with varus deformity secondary to mechanical fall while at ECF, status post left hip IT nailing History of COPD, not in exacerbation Chronic hypoxic respiratory failure, wears oxygen outpatient History of hypertension Hard of hearing Anxiety/depression Former smoker Memory impairment Remote lacunar infarct in the left thalamus with no mass effect or midline shift noted on CT brain GI prophylaxis DVT prophylaxis Full code Plan: Patient admitted under orthopedics status post mechanical fall while at ECF noted to have a left femur proximal fracture and is underwent left hip IT n ailing, postop day 1 Recommend PT/OT therapy evaluation again in the a.m. with case management to ken gomez and plans will be to return to [facility] on discharge where she resides Continue to attempt to encourage incentive spirometer use at least 10 times every hour while awake. Home medications will be reviewed and resumed once appropriate Encouraged oral intake and small meals, supplements between meals, would recommend supervision with meals and aspiration precautions with head of the bed elevated 35 to 45 degrees at all times Monitor respiratory status closely as patient does have a history of COPD and chronically wears oxygen, recommend monitoring closely for any volume overload. Patient is 100% on 6 L and would recommend weaning FiO2 slightly. Continue breathing treatments and reinforcement on incentive spirometer use. Pain management and DVT prophylaxis per orthopedics. thank you kindly for this consultation. We will continue to follow with orthopedics during hospitalization The impression and plan of care has been dictated by Heather Pastrana, Nurse Practitioner as directed. Dr. Farzad MD I have performed a history and examination and MDM of this patient, discussed the same with the dictator, and agree with the dictator's assessment and plan as written ,documented as a scribe. Based on total visit time, I have performed more than 50% of the visit. Objective - Vital Signs Vital signs: Vital Signs Temp 97.8 F 12/21/24 09:32 Pulse 80 12/21/24 09:56 Resp 13 12/21/24 09:32 BP 99/66 12/21/24 09:32 Pulse Ox 100 12/21/24 09:46 FiO2 Intake & Output 12/20/24 12/21/24 12/21/24 18:59 06:59 18:59 Intake Total 410 Output Total 300 350 Balance 110 -350 Weight 51.075 kg Intake: Intake, IV Titration 160 Amount Sodium Chloride 0.9% 1, 160 000 ml @ 20 mls/hr IV . Q24H [facility] Rx#:[id number] Oral 250 Output: Urine 300 350 Other: Voiding Method Indwelling Catheter Indwelling Catheter Indwelling Catheter - Labs CBC & Chem 7: 12/20/24 05:58 12/20/24 05:58 Labs: Abnormal Lab Results - Last 24 Hours (Table) 12/20/24 Range/Units 05:58 Anion Gap 12.20 H (4.00-12.00) mmol/L BUN/Creatinine Ratio 27.00 H (12.00-20.00) Ratio Calcium 7.8 L (8.7-10.3) mg/dL
[2024-12-21] MEDS: QUEtiapine 25 MG TAB PO PRN (22:12)
--- NOTE | 2024-12-22 08:46 | P.PN ---
Subjective Progress Note Date: 12/22/24 Principal diagnosis: Status post left hip IT nail This is a 74 year-old female post left hip IT nail. This is post-op day 3. The patient was evaluated at the bedside today. Speech was evaluating the patient this morning. She denies any pain right now. Objective - Vital Signs Vital signs: Vital Signs Temp 99.8 F H 12/22/24 01:02 Pulse 103 H 12/22/24 07:00 Resp 20 12/22/24 01:02 BP 120/58 12/22/24 07:00 Pulse Ox 88 L 12/22/24 07:00 FiO2 Intake & Output 12/21/24 12/22/24 12/22/24 18:59 06:59 18:59 Intake Total 832 Output Total 400 Balance 832 -400 Intake: Intake, IV Titration 60 Amount Sodium Chloride 0.9% 1, 60 000 ml @ 20 mls/hr IV . Q24H [facility] Rx#:[id number] Oral 200 Blood Product 572 Rc Pheresis As-3 Unit 282 [id number] Output: Urine 400 Other: Voiding Method Indwelling Catheter Indwelling Catheter - Exam The patient is no acute distress this morning. Alert and orientated x1. Dressing is clean dry and intact. Incision appears fine with no erythema or active drainage. Calf is soft and nontender. Able to wiggle her toes. Sensation and circulatory status is intact. - Labs CBC & Chem 7: 12/22/24 03:48 12/20/24 05:58 Labs: Abnormal Lab Results - Last 24 Hours (Table) 12/21/24 Range/Units 11:22 Crossmatch See Detail Assessment and Plan (1) Status post hip surgery Current Visit: Yes Status: Acute Code(s): Z98.890 - OTHER SPECIFIED POSTPROCEDURAL STATES SNOMED Code(s): 252892828 (2) Intertrochanteric fracture of left hip Current Visit: Yes Status: Acute Code(s): S72.142A - DISPLACED INTERTROCHANT CHRIS FRACTURE OF LEFT FEMUR, INIT SNOMED Code(s): 906431541 Plan: 1. Continue pain control 2. Anticoagulation with Aspirin 81 mg BID 3. Continue physical therapy and ambulation, weightbearing as tolerated with a walker. 4. Anticipate discharge back to [facility], today or tomorrow. Patient was seen and independently examined today, I agree with the above interval history and exam. Patient was evaluated by the speech team for recommendations regarding diet. Patient was able to work with therapy today she was able to ambulate and get up into a chair. Patient remains oriented to person only but notes improved pain. On exam her dressings are clean dry and intact she remains neurovascularly intact throughout the left lower extremity, gentle internal/external rotation of the left hip is well-tolerated. Patient received a transfusion yesterday and her hemoglobin has responded appropriately. From an orthopedic standpoint patient will be stable for discharge once she is medically stabilized. Patient has rehab facilities at her living facility and she can continue her work with PT at that location. Will plan to see patient back 2 weeks after her surgery Dressing should remain in place until that visit If dressings need to be replaced they can be changed with dry dressings Continue aspirin 81 mg twice daily
[2024-12-22 10:19] LABS: Basophils # (A) 0.03 X 10*3/uL (0.00-0.10); Basophils % (A) 0.2 %; Eosinophils # (A) 0.04 X 10*3/uL (0.04-0.35); Eosinophils % (A) 0.3 %; HCT 26.2 % (37.2-46.3); Lymphocytes # (A) 1.27 X 10*3/uL (0.90-5.00); Lymphocytes % (A) 8.4 %; MCH 27.6 pg (27.0-32.0); MCHC 30.5 g/dL (32.0-37.0); MCV 90.3 FL (80.0-97.0); Mean Platelet Volume 10.7 FL (9.5-12.2); Monocytes # (A) 0.76 X 10*3/uL (0.20-1.00); Monocytes % (A) 5.1 %; NRBC Per 100 WBC 0 X 10*3/uL (0.00-0.01); Neutrophils # (A) 12.86 X 10*3/uL (1.80-7.70); Neutrophils % (A) 85.5 %; Platelet Count 194 X 10*3/uL (140-440); RDW 17.2 % (11.5-14.5); WBC 15.04 X 10*3/uL (4.50-10.00)
--- NOTE | 2024-12-22 13:20 | P.DS ---
Providers Date of admission: 12/18/24 16:07 Expected date of discharge: 12/22/24 Attending physician: Juanpablo Palacios MD Consults: 12/18/24 16:07 Consult Physician Routine Consulting Provider: Loy Polo Consult Reason/Comments: medical care Do you want consulting provider notified?: Yes Primary care physician: Lorraine Geovany - Discharge Diagnosis(es) (1) Status post hip surgery Current Visit: Yes Status: Acute (2) Intertrochanteric fracture of left hip Current Visit: Yes Status: Acute Hospital Course: This is a 74 year old female who presented to the hospital post fall at her long-term and sustained a left hip fracture. The patient was cleared by internal medicine for surgery. The patient underwent a left hip cephomedullary nail on 12/19/[address] Palacios. The procedure was performed without complication or sequelae. The patient is doing well postoperatively. Labs and vital signs are stable on the day of discharge. On the day of discharge the patient's hip incision is healing well. There is minimal erythema. There is no drainage noted at this time. There is minimal soft tissue swelling to the hip and thigh. The patient has full foot and ankle motion without difficulty or pain. Neurovascular status to the left lower extremity is intact. The patient is discharged to skilled rehab in stable condition. See medication reconciliation for accurate list of discharge medications. Pertinent Studies: Laboratory Tests 12/22/24 03:48 WBC 15.04 H RBC 2.90 L Hgb 8.0 L Hct 26.2 L MCHC 30.5 L RDW 17.2 H Immature Gran # 0.08 H Neutrophils # 12.86 H Patient Condition at Discharge: Fair Plan - Discharge Summary Discharge Rx Participant: No New Discharge Prescriptions: New Aspirin 81 mg PO BID #60 tab HYDROcodone/APAP 5-325MG [[place] 5] 1 each PO Q6HR PRN #30 tab PRN Reason: Pain Sennosides-Docusate Sodium [Senokot-S] 2 tab PO DAILY #30 tablet No Action Acetaminophen [Tylenol] 650 mg PO Q6H PRN PRN Reason: Pain Vit C/E/Zn/Coppr/Lutein/Zeaxan [Preservision Areds 2 Softgel] 1 cap PO DAILY Omeprazole [PriLOSEC] 20 mg PO DAILY Fluticasone/Umeclidin/Vilanter [Trelegy Ellipta 200-62.5-25] 1 puff INHALATION RT-DAILY ALPRAZolam [Xanax] 0.25 mg PO TID@0900,1300,2100 Cholecalciferol (Vitamin D3) [Vitamin D3 (50 Mcg = 2000 Iu)] 50 mcg PO DAILY Lidocaine Viscous 2% [Xylocaine Viscous] 2 ml PO DAILY PRN PRN Reason: MOUTH PAIN Folic Acid 1 mg PO DAILY #30 tablet HYDROcodone/APAP 5-325MG [[place] 5-325] 1 tab PO Q6H PRN PRN Reason: Pain predniSONE 10 mg PO DAILY Sennosides [Senokot] 8.6 mg PO DAILY Losartan [Cozaar] 50 mg PO DAILY Discharge Medication List Folic Acid 1 mg PO DAILY #30 tablet 12/25/23 [Rx] Acetaminophen [Tylenol] 650 mg PO Q6H PRN 01/17/24 [History] Omeprazole [PriLOSEC] 20 mg PO DAILY 06/18/24 [History] Vit C/E/Zn/Coppr/Lutein/Zeaxan [Preservision Areds 2 Softgel] 1 cap PO DAILY 06/18/24 [History] ALPRAZolam [Xanax] 0.25 mg PO TID@0900,1300,2100 12/18/24 [History] Cholecalciferol (Vitamin D3) [Vitamin D3 (50 Mcg = 2000 Iu)] 50 mcg PO DAILY 12/18/24 [History] Fluticasone/Umeclidin/Vilanter [Trelegy Ellipta 200-62.5-25] 1 puff INHALATION RT-DAILY 12/18/24 [History] HYDROcodone/APAP 5-325MG [Andale 5-325] 1 tab PO Q6H PRN 12/18/24 [History] Lidocaine Viscous 2% [Xylocaine Viscous] 2 ml PO DAILY PRN 12/18/24 [History] Losartan [Cozaar] 50 mg PO DAILY 12/18/24 [History] Sennosides [Senokot] 8.6 mg PO DAILY 12/18/24 [History] predniSONE 10 mg PO DAILY 12/18/24 [History] Aspirin 81 mg PO BID #60 tab 12/22/24 [Rx] HYDROcodone/APAP 5-325MG [Andale 5] 1 each PO Q6HR PRN #30 tab 12/22/24 [Rx] Sennosides-Docusate Sodium [Senokot-S] 2 tab PO DAILY #30 tablet 12/22/24 [Rx] Follow up Appointment(s)/Referral(s): Juanpablo Palacios MD [STAFF PHYSICIAN] - 2 Weeks Lorraine Armenta MD [Primary Care Provider] - 1-2 days Activity/Diet/Wound Care/Special Instructions: Keep Optifoam dressing in place for 7 days unless saturated. After 7 days, remove dressing and apply dry 4x4s and paper tape. PT - WBAT with walker and assistance. Use pain medication as directed. Continue Aspirin 81mg BID for 4 weeks Follow up outpatient with Dr. Palacios in 2 weeks -- call for appointment. Call [facility] with questions or concerns. Discharge Disposition: TRANSFER TO SNF/ECF
--- NOTE | 2024-12-22 14:37 | XR ---
EXAMINATION TYPE: XR chest 1V portable DATE OF EXAM: 12/22/2024 2:24 PM COMPARISON: 12/18/2024 CLINICAL INDICATION: Female, 74 years old with history of shortness of breath, TECHNIQUE: XR chest 1V portable view(s) obtained. FINDINGS: The heart size is normal. The pulmonary vasculature is somewhat prominent. Diffuse increased lung markings are present greater in the lung bases. There is some silhouetting lef t diaphragm. Curly B lines appear to be present at the right lung base. IMPRESSION: 1. Correlate for congestive heart failure. 2. There may be some bibasilar atelectasis in addition to pulmonary edema. [facility], , 12/22/2024 2:35 PM
[2024-12-22 14:39] VITALS: BP 125/78; PULSE 103; RESP 18; TEMP 99
[2024-12-22] MEDS: FUROSEMIDE 10 MG/ML 4 ML VIAL IV STA (15:44)
[2024-12-22 17:45] LABS: Appearance,Urine Clear (Clear); Bacteria,Urine Moderate /hpf; Bilirubin,Urine Negative (Negative); Blood,Urine Small (Negative); Color,Urine Yellow; Glucose,Urine (UA) Negative (Negative); Hyaline Casts,Urine 3 /lpf (0-2); Ketones,Urine 3+ (Negative); Leukocyte Esterase,Urine Moderate (Negative); Mucus,Urine Many /hpf; Nitrite,Urine Negative (Negative); Protein,Urine 1+ (Negative); RBC,Urine 20 /hpf (0-5); Specific Gravity,Urine 1.024 (1.001-1.035); Squamous Epithelial Cell,Urine 1 /hpf (0-4); Urobilinogen,Urine <2.0 mg/dL (<2.0); WBC,Urine 17 /hpf (0-5)
--- NOTE | 2024-12-25 06:17 | CDI ---
Documentation Clarification Form Date: 12/25/24 From: Sarah Brown Admit Date: 12/18/2024 04:07:00 PM Patient Name: Meredith Massey Visit Number: [id number] Discharge Date: 12/22/2024 06:30:00 PM ATTENTION: The Clinical Documentation Specialists (CDI) and [facility] Coding Staff appreciate your assistance in clarifying documentation. Please respond to the clarification below the line at the bottom and electronically sign. The CDI & [facility] Coding staff will review the response and follow-up if needed. Please note: Queries are made part of the Legal Health Record. If you have any questions, please contact the author of this message via ITS. Doctor/Provider: Juanpablo Palacios Your patient has a hemoglobin/hematocrit level of 9.9 - 12/18, 7.7 - 12/20 and 8.0 12/22. Please clarify if there is an additional diagnosis and/or clinical significance related to these lab values. History/Risk Factors: Chronic hypoxic respiratory failure and wears oxygen, COPD. HTN, [place], anxiety/depression Clinical indicators: Displaced intertrochanteric fracture of left femur with left hip closed reduction internal fixation per anesthesia record 12/19. Updated labs reviewed which showed adrop in her hemoglobinto 7.7, patient has not been able to ambulate significantly at his time however given the level below 8 we will plan fortransfusion. Treatment: One unit of red blood cells, monitor H&H Is there an additional diagnosis and/or clinical significance related to the above lab result/information: [ X] Acute blood loss anemia [ ] Acute on chronic blood loss anemia [ ] No additional diagnosis/Not clinically significant [ ] Unable to determine [ ] Other, please specify MTDD
--- NOTE | 2024-12-29 08:55 | P.PN ---
Subjective Progress Note Date: 12/22/24 - Reason for Consult Consult date: 12/19/24 Medical management, fall, left intertrochanteric fracture - History of Present Illness This is a pleasant 74-year-old female who presented to the ER after a fall while at a alf. Patient was noted to have a left proximal femur fracture. Patient is an extremely poor historian and son is power of assistant district attorney although is willing to proceed with surgery to improve quality of life as patient was walking prior to this. Patient does follow with Dr. Armenta in the outpatient setting with a past medical history of COPD with chronic oxygen use, hypertension, hard of hearing, anxiety/depression, former smoker. Imaging reviewed in the ER noted to have proximal left femur intertrochanteric fracture with varus deformity, and hip CT reveals redemonstration of the acute comminuted displaced fracture of the left proximal femur. Chest x-ray shows no acute cardiopulmonary disease process. Labs reviewed reveal a mild white count elevation of 11.49, hemoglobin is 9.9, platelets 210, sodium is 138 with a potassium of 3.6, BUN is 24 with a creatinine of 0.49. Patient is currently n.p.o. and is scheduled for surgical intervention this afternoon. EKG showing sinus rhythm and other vital signs within normal limits. Given patient's comorbidities, patient would be considered low to moderate risk for surgical intervention and is medically stable to proceed with surgery with orthopedics. Medical will continue to follow with orthopedics during hospitalization 12/20/2024 Patient is seen in follow-up today status post left hip IT nailing. Patient continues with pain although did receive a [place] and per nursing staff is resting. Recommend monitoring and limiting narcotic use closely on this patient given her mentation and age. Patient to also continue with breathing treatments and supplemental oxygen. Patient does chronically wear oxygen at [facility] in the outpatient setting. Plan will be for her to return there although will need updated PT/OT therapy notes. Encouraged increased oral intake although not much of an eater and would recommend aspiration precautions. Discontinue IV fluids. Patient's hemoglobin is 7.7 today with no active bleeding noted recommend to monitor closely, platelets are stable at 184. Sodium is 135 with a potassium of 3.8, BUN is 16.2 the creatinine is 0.6. Magnesium is 1.7. Patient is extremely hard of hearing and would recommend frequent reorientation. Seroquel as needed at night as needed if patient is becoming agitated 12/21/2024 Patient seen in follow-up today with no acute overnight issues noted per nursing staff. Plan will be for return to [facility] possibly in the next 1 to 2 days. Patient does chronically wear oxygen outpatient and is saturating 100% on 6 L, recommending weaning FiO2 at least down to 4 L. Encourage sitting up more frequently and oral intake to be supervised and continuing to monitor for aspiration precautions. Patient is afebrile and no reports of chest pain or palpitations noted. Await reevaluation by PT/OT therapy on Sunday with case management to follow and plans on discharging to [facility]. Patient resides there. 12/22/2024 Patient is seen in follow-up today planning on returning to [facility] where she resides. Patient is status post left hip intervention with orthopedics. Patient to continue with current regimen and would recommend bowel regimen on discharge with close monitoring. Patient to continue with breathing treatments and would also recommend aspiration precautions and head of the bed elevated 35 to 45 degrees at all times. Patient with not much of an appetite would benefit from a speech evaluation outpatient and supervision with meals with dietary consult. Patient is cachectic and most likely has not been eating very well. Patient does have history of dementia. Patient is currently afebrile chronically wears O2 outpatient does not report any chest pain or shortness of breath. PHYSICAL EXAMINATION: GENERAL: The patient is awake, alert and oriented x1, not in any acute distress. Pleasant, well developed, elderly appearing, thin built, cachectic HEENT: Pupils are round and equally reacting to light. EOMI. No scleral icterus. No conjunctival pallor. Normocephalic, atraumatic. No pharyngeal erythema. No thyromegaly. CARDIOVASCULAR: S1 and S2 muffled PULMONARY: Diminished breath sounds bilaterally with some bronchial congestion and coarse rhonchi, no significant wheezing noted ABDOMEN: Soft, nontender, nondistended, normoactive bowel sounds. No palpable organomegaly. MUSCULOSKELETAL: No joint swelling or deformity. EXTREMITIES: No cyanosis, clubbing, or pedal edema. Left Hip Surgical Dressing Is Dry and Intact NEUROLOGICAL: Gross neurological examination did not reveal any focal deficits. Diffusely weak SKIN: No rashes. Assessment: Proximal left femur intertrochanteric fracture with varus deformity secondary to mechanical fall while at [facility], status post left hip IT nailing History of COPD, not in exacerbation Chronic hypoxic respiratory failure, wears oxygen outpatient History of hypertension Hard of hearing Anxiety/depression Former smoker Memory impairment Remote lacunar infarct in the left thalamus with no mass effect or midline shift noted on CT brain GI prophylaxis DVT prophylaxis Full code Plan: Patient admitted under orthopedics status post mechanical fall while at [facility] noted to have a left femur proximal fracture and is underwent left hip IT nailing, plan is for discharge back to [facility] today Continue to attempt to encourage incentive spirometer use at least 10 times every hour while awake. Home medications will be reviewed and resumed once appropriate Encouraged oral intake and small meals, supplements between meals, would recommend supervision with meals and aspiration precautions with head of the bed elevated 35 to 45 degrees at all times. Patient appears to be at high risk for aspiration. Patient also with not much of an appetite would recommend speech and dietary consultation outpatient. Patient most likely has not been eating very well as patient is very thin and cachectic and frail appearing Monitor respiratory status closely as patient does have a history of COPD and chronically wears oxygen, recommend monitoring closely for any volume overload. Patient is 100% on 6 L and would recommend weaning FiO2 slightly. Continue breathing treatments and reinforcement on incentive spirometer use. Pain management and DVT prophylaxis per orthopedics. Patient is medically stable once cleared by orthopedics for discharge to [facility] thank you kindly for this consultation. We will continue to follow with orthopedics during hospitalization The impression and plan of care has been dictated by Heather Pastrana, Nurse Practitioner as directed. Dr. Gaby MD I have performed a history and examination and MDM of this patient, discussed the same with the dictator, and agree with the dictator's assessment and plan as written ,documented as a scribe. Based on total visit time, I have performed more than 50% of the visit. Objective - Vital Signs Vital signs: Vital Signs Temp 99.0 F 12/22/24 14:00 Pulse 103 H 12/22/24 14:00 Resp 18 12/22/24 14:00 BP 125/78 12/22/24 14:00 Pulse Ox 97 12/22/24 14:00 FiO2 Intake & Output 12/21/24 12/22/24 12/22/24 18:59 06:59 18:59 Intake Total 832 Output Total 400 Balance 832 -400 Intake: Intake, IV Titration 60 Amount Sodium Chloride 0.9% 1, 60 000 ml @ 20 mls/hr IV . Q24H [facility] Rx#:[id number] Oral 200 Blood Product 572 Rc Pheresis As-3 Unit 282 [id number] Output: Urine 400 Other: Voiding Method Indwelling Catheter Indwelling Catheter Indwelling Catheter - Labs CBC & Chem 7: 12/22/24 03:48 12/20/24 05:58 Labs: Abnormal Lab Results - Last 24 Hours (Table) 12/21/24 12/22/24 Range/Units 11:22 03:48 WBC 15.04 H (4.50-10.00) X 10*3/uL RBC 2.90 L (4.10-5.20) X 10*6/uL Hgb 8.0 L (12.0-15.0) g/dL Hct 26.2 L (37.2-46.3) % MCHC 30.5 L (32.0-37.0) g/dL RDW 17.2 H (11.5-14.5) % Immature Gran # 0.08 H (0.00-0.04) X 10*3/uL Neutrophils # 12.86 H (1.80-7.70) X 10*3/uL Crossmatch See Detail
--- NOTE | 2024-12-31 17:11 | P.OP ---
Date of Procedure: 12/19/24 Preoperative Diagnosis: Left Intertrochanteric hip fracture Postoperative Diagnosis: Same Procedure(s) Performed: Operative fixation of the left hip with cephalomedullary implant Implants: Synthes short TFNA 170 mm size 12 mm 105 mm lag screw 36 mm distal screw Anesthesia: spinal Surgeon: Juanpablo Palacios Estimated Blood Loss (ml): 200 Pathology: none sent Condition: stable Disposition: PACU Indications for Procedure: Unstable left hip fracture in an ambulatory patient Operative Findings: Displaced and comminuted proximal femur fracture in the intertrochanteric region with significant comminution of the posteromedial aspect of the proximal femur Description of Procedure: After appropriate consent was obtained detailing the benefits and risks of surgery after discussion with the patients POA. The risks of surgery include risks of anesthesia which was discussed in greater detail with the anesthesia team prior to surgery, scarring, risk of swelling and possible permanent swelling of the affected extremity, superficial vs deep infections, damage to surrounding structures including muscles, nerve, tendons, blood vessels, hardware failure, fracture mal or non union, need for additional future surgery, blood clots, compartment syndrome, stroke, even are possible with surgery were discussed with the patient and POA and they wished to proceed when medically optimized. Detailed descriptions of these risks are included in the consent document that patient/family were provided a copy with for review prior to his procedure. Benefits include stabilizing the fracture and helping with baseline pain, providing the patient with the opportunity to weight bear on the extremity after surgery The patient was brought to the operating room, and after induction of spinal anesthesia the patient was placed supine on the [place] table. The left hip fracture was reduced with a combination of traction and external rotation in this instance as well as some mild abduction. Appropriate reduction was confirmed with fluoroscopy. The left hip was then prepped and draped in a normal fashion. A standard timeout was performed again confirming the appropriate patient and operative site. the appropriate starting point on the greater trochanter was initially identified with fluoroscopy, the incision just proximal to the greater trochanter in line with the femur was marked out the incision was carried down through the skin and through the overlying fascia in order to palpate the greater trochanter. a 3.2 mm guidepin was utilized to get the initial starting point for the opening reamer the opening reamer was then placed over the guidepin to open up the proximal aspect of the femur, sequentially reamers up to a 13.5 mm reamer was then placed over a guidewire which was exchanged for the initial guidepin in order to adequately open the distal aspect of the canal to allow for ease of nail insertion the Synthes short 12 mm femoral nail, this was then gently inserted into a proper depth for the femoral neck lag screw, the trocar sleeve for the lag screw was then inserted the incision was carried down through the skin and overlying fascia and the trocar was placed on the bone. an additional pin was placed through the aiming jig in order to properly estimate the trajectory of the head screw on the lateral image. Position was confirmed on AP and lateral films the guidepin for the head screw was then placed in appropriate position again confirmed with imaging, screw was then predrilled drilled and an appropriate sized screw length selected and placed ensuring that there was no intra-articular penetration on both the AP and lateral films. Manual compression was then performed to further reduce the fracture, the head screw was then locked in place due to the significant comminution encountered. attention was then placed to the distal screw, the trocar was inserted and appropriate position confirmed with imaging the cortex was drilled and an appropriate size screw was placed and imaging confirmed once again on fluoroscopy guide was removed and final images demonstrated appropriate fracture reduction and position of the implants the wounds were copiously irrigated with normal saline and the wounds closed with Vicryl sutures and strata fix barbed suture, skin glue was then applied, sterile dressings were then applied, patient tolerated the procedure well and was sexton sported to the PACU in stable condition. Leg length and rotation assessment showed that appropriate length and limb rotation had been appropriately restored when compared to her right side. Patient will be weightbearing as tolerated to the left lower extremity We will begin aspirin 81 mg twice daily for DVT prophylaxis PT/OT evaluation for mobilization as well as gait training Anticipate patient returning to her living/rehab facility Appreciate ongoing medicine evaluation Patient sutures should remain in place until her follow-up visit however if they are to become saturated new dressings can be applied
--- NOTE | 2025-01-01 07:49 | CDI ---
Documentation Clarification Form Date: 01/01/25 From: Sarah Brown Admit Date: 12/18/2024 04:07:00 PM Patient Name: Meredith Massey Visit Number: [id number] Discharge Date: 12/22/2024 06:30:00 PM ATTENTION: The Clinical Documentation Specialists (CDI) and [facility] Coding Staff appreciate your assistance in clarifying documentation. Please respond to the clarification below the line at the bottom and electronically sign. The CDI & [facility] Coding staff will review the response and follow-up if needed. Please note: Queries are made part of the Legal Health Record. If you have any questions, please contact the author of this message via ITS. Doctor/Provider: Loy Polo The Registered Dietitian assessment on 12/20 indicates this patient meets criteria for malnutrition dx & severity. Based on this information and the findings below, is there an additional diagnosis that is clinically appropriate for this patient? History/Risk Factors: cachexia, left intertrochanteric hip fracture, COPD, chronic hypoxic respiratory failure, home oxygen, HTN. Clinical Indicators: Nutrition Consult: Underweight with predicted suboptimal energy intake for age. Increase PO intake from 50% to 75% Commercial beverage, Ensure clear TID Dysphagia Diet 2 on 12/21 Dysphagia Diet 1 on 12/22 Speech Therapy: Unable to fully assess OM strength/ROM s/t pt inability to follow simple verbal directives. All oral trials were tolerated without overt s/s of aspiration; however, pt exhibited poor masticatory effort with ground trials d/t AMS. Moderate bolus holding was observed. Swallow initiation appeared timely/efficient and laryngeal excursion was normal on palpation. No difficulty with pharyngeal clearance was observed. Laryngeal closure could not be adequately assessed. Overall, It was recommended diet be downgraded to dysphagia level1 puree/thin liquids d/t observed swallowing apraxic tendencies. Current BMI: 18.2 Treatment: see above Is there an additional diagnosis that is clinically appropriate for this patient? [ ] Mild Protein-Calorie Malnutrition [ ] Moderate Protein-Calorie Malnutrition [ ] Severe Protein-Calorie Malnutrition [ ] No additional diagnosis/Not clinically significant [ ] Other condition, please specify [ ] Unable to Determine not mine MTDD
--- NOTE | 2025-01-05 06:22 | CDI ---
Documentation Clarification Form Date: 01/05/25 From: Sarah Brown Admit Date: 12/18/2024 04:07:00 PM Patient Name: Meredith Massey Visit Number: [id number] Discharge Date: 12/22/2024 06:30:00 PM ATTENTION: The Clinical Documentation Specialists (CDI) and [facility] Coding Staff appreciate your assistance in clarifying documentation.Please respond to the clarification below the line at the bottom and electronically sign.The CDI [facility] Coding staff will review the response and follow-up if needed.Please note: Queries are made part of the Legal Health Record.If you have any questions, please contact the author of this message via ITS. Doctor/Provider: Fran Panda, The Registered Dietitian assessment on 12/20 indicates this patient meets criteria for malnutrition dx severity.Based on this information and the findings below, is there an additional diagnosis that is clinically appropriate for this patient? History/Risk Factors: cachexia, left intertrochanteric hip fracture, COPD, chronic hypoxic respiratory failure, home oxygen, HTN. Clinical Indicators: Nutrition Consult: Underweight with predicted suboptimal energy intake for age. Increase PO intake from 50% to 75% Commercial beverage, Ensure clear TID Dysphagia Diet 2 on 12/21 Dysphagia Diet 1 on 12/22 Speech Therapy: Unable to fully assess OM strength/ROM s/t pt inability to follow simple verbal directives.All oral trials were tolerated without overt s/s of aspiration; however, pt exhibited poor masticatory effort with ground trials d/t AMS. Moderate bolus holding was observed.Swallow initiation appeared timely/efficient and laryngeal excursion was normal on palpation.No difficulty with pharyngeal clearance was observed.Laryngeal closure could not be adequately assessed.Overall, It was recommended diet be downgraded to dysphagia level1 puree/thin liquids d/t observed swallowing apraxic tendencies. Current BMI: 18.2 Treatment: see above Is there an additional diagnosis that is clinically appropriate for this patient? [x ] Mild Protein-Calorie Malnutrition [ ] Moderate Protein-Calorie Malnutrition [ ] Severe Protein-Calorie Malnutrition [ ] No additional diagnosis/Not clinically significant [ ] Other condition, please specify [ ] Unable to Determine MTDD
== END 2024-12-22 18:30 | DRG 481 ==
LOC: EC 13:42 → 4SSUR 16:07
PROVIDERS: ADMIT Orthopaedic Surgery; ATTEND Orthopaedic Surgery
PROC: 0QS734Z Reposition Left Upper Femur with Internal Fixation Device, Percutaneous Approach (ICD-10-PCS; principal; 2024-12-21)
PROC: 30233N1 Transfusion of Nonautologous Red Blood Cells into Peripheral Vein, Percutaneous Approach (ICD-10-PCS; 2024-12-21)
DX: S72.142A Displaced intertrochanteric fracture of left femur, initial encounter for closed fracture (principal); D62 Acute posthemorrhagic anemia; R64 Cachexia; E44.1 Mild protein-calorie malnutrition; F03.93 Unspecified dementia, unspecified severity, with mood disturbance; J44.9 Chronic obstructive pulmonary disease, unspecified; F32.A Depression, unspecified; I10 Essential (primary) hypertension; J96.11 Chronic respiratory failure with hypoxia; F03.94 Unspecified dementia, unspecified severity, with anxiety; Z68.1 Body mass index [BMI] 19.9 or less, adult; Z99.81 Dependence on supplemental oxygen; S51.812A Laceration without foreign body of left forearm, initial encounter; F41.9 Anxiety disorder, unspecified; H91.90 Unspecified hearing loss, unspecified ear; R41.89 Other symptoms and signs involving cognitive functions and awareness; Z79.51 Long term (current) use of inhaled steroids; Z79.899 Other long term (current) drug therapy; Z87.891 Personal history of nicotine dependence; Z86.73 Personal history of transient ischemic attack (TIA), and cerebral infarction without residual deficits; W18.30XA Fall on same level, unspecified, initial encounter; Y92.129 Unspecified place in nursing home as the place of occurrence of the external cause; Z71.3 Dietary counseling and surveillance
CPT/HCPCS: 36415; 51702; 70450; 71045; 72125; 72170; 73501; 73502; 80048; 80053; 81001; 83735; 85025; 85610; 85730; 86850; 86900; 86901; 86920; 93005; 94640; 94760; 96374; 96376; 99285